=== PATIENT | female | born 1970 | race Caucasian/White ===

== ENCOUNTER 2016-06-23 13:40 | Inpatient (IN) | payer MEDICARE, MEDICAID ==
[~2016-06-23] VITALS: Ht 160 cm; Wt 197.5 kg
[~2016-06-23 13:40] MED LIST: AMOX1TAB10 PO; BACTDS PO; CEPH-443 PO; FAMO40TA52; FERR-55 PO; HYDR-906 PO; HYDR25TA6 PO; OMEP20CA16 PO; ONDA4TAB8 PO; OXYC-281; SERT-165 PO; SERT50TA6 PO; [UNRECOGNIZED DRUG - CODE] PO; [UNRECOGNIZED DRUG - CODE] PO
[2016-06-23] MEDS ORDERED: ACETAMINOPHEN 500 MG TAB PO STA (14:17)
[2016-06-23] MEDS ORDERED: IPRATROPIUM (NEB) 0.5 MG/2.5 ML AMP NEB STA (14:17)
[2016-06-23] MEDS ORDERED: ALBUTEROL 0.5% (NEB) 2.5 MG/0.5 ML AMP NEB STA (14:17)
[2016-06-23] MEDS ORDERED: LEVOFLOXACIN 500MG/D5W (PMX) 100 ML IV STA (14:17)
[2016-06-23] MEDS ORDERED: SOD CHLORIDE 0.9% 1,000 ML IV STA (14:17)
[2016-06-23 14:41] LABS: BASOPHILS % 0.1 % (0.0-2.0); EOSINOPHILS % 0.1 % (0.0-7.0); HEMATOCRIT 35.4 % (37.0-47.0); HEMOGLOBIN 11.2 g/dl (12.0-16.0); LYMPHOCYTES # 0.5 10^3/ul (0.8-2.9); LYMPHOCYTES % 3.1 % (15.0-51.0); MEAN CORPUSCULAR HEMOGLOBIN 21.7 pg (29.0-33.0); MEAN CORPUSCULAR HGB CONC 31.7 g/dl (32.0-37.0); MEAN CORPUSCULAR VOLUME 68.5 fl (82.0-101.0); MEAN PLATELET VOLUME 7.7 fl (7.4-10.4); MONOCYTE # 0.3 10^3/ul (0.3-0.9); MONOCYTES % 1.9 % (0.0-11.0); NEUTROPHIL # 15.7 10^3/ul (1.6-7.5); NEUTROPHILS % 94.8 % (39.0-77.0); PLATELET COUNT 269 10^3/UL (140-440); RED BLOOD COUNT 5.17 10^6/ul (4.20-5.40); RED CELL DISTRIBUTION WIDTH 19.6 % (11.5-14.5); UNCORRECTED WBC 16.5 10^3/ul (4.8-10.8); WHITE BLOOD COUNT 16.5 10^3/ul (4.8-10.8)
[2016-06-23 14:42] LABS: CONDITION 1; SUSPECT 1
[2016-06-23 14:43] LABS: LH ANALYZER COMMENTS 1
[2016-06-23] MEDS ORDERED: HYDROmorphONE 1 MG/ML SYG IV STA ×3 (14:59→20:54)
[2016-06-23] MEDS ORDERED: ONDANSETRON 4 MG INJ IV STA ×2 (14:59→16:23)
--- NOTE | 2016-06-23 15:01 | RADRPT ---
PROCEDURE: XR Chest. CLINICAL INDICATION: Shortness of breath TECHNIQUE: AP view of the chest was obtained. COMPARISON: None. FINDINGS: The cardiomediastinal silhouette is within normal limits. The lungs are unremarkable. No pleural e ffusion or pneumothorax is seen. Visualized osseous structures are unremarkable. IMPRESSION: No active cardiopulmonary disease identified. RPTAT: VV .David Rose MD, Date Time Electronically viewed and signed by .David Rose MD, on 06/23/2016 15:01 .O/
[2016-06-23 15:09] LABS: CREATININE 0.96 mg/dl (0.44-1.00)
[2016-06-23 15:10] LABS: CALCIUM 8.8 mg/dl (8.4-10.2)
[2016-06-23] MEDS ORDERED: HYDR-902 PO (16:00)
[2016-06-23] MEDS ORDERED: ALPR1TAB2 PO (16:00)
[2016-06-23] MEDS ORDERED: BENA40TA41 PO (16:01)
[2016-06-23] MEDS ORDERED: IBUP800T25 PO (16:01)
[2016-06-23] MEDS ORDERED: ALBU8.5H3 INH (16:02)
[2016-06-23] MEDS ORDERED: METF-382 PO (16:02)
--- NOTE | 2016-06-23 16:16 | ERA ---
ER Documentation Chief Complaint Date/Time DATE: 06/23/16 TIME: 16:12 Chief Complaint C/O LT LEG PAIN , FEVER , ST , SOB SINCE LAST NIGHT HPI This a 45-year-old female who complains of day 2 of fever, productive white sputum cough, sore throat, and states that she woke this morning with cellulitis to her right leg. She has had no nausea or vomiting no abdominal pain says she is a little short of breath with diffuse malaise and myalgias. She describes the pain in her leg is dull and constant ROS All systems reviewed and are negative except as per history of present illness. Medications Home Meds Reported Medications Albuterol Sulfate* (Proair HFA*) 8.5 Gm Hfa.aer.ad, 2 PUFF INH Q4H Y for WHEEZING AND SOB, #1 INHALER 06/23/16 Metformin Hcl* (Metformin Hcl*) 500 Mg Tablet, 500 MG PO WITH BREAKFAST, #30 TAB 06/23/16 Ibuprofen* (Ibuprofen*) 800 Mg Tab, 800 MG PO TID Y for PRN, TAB 06/23/16 Benazepril Hcl* (Benazepril Hcl*) 40 Mg Tablet, 40 MG PO DAILY, #30 TAB 06/23/16 Alprazolam* (Xanax*) 1 Mg Tab, 1 MG PO QHS Y for ANXIETY, TAB 06/23/16 Hydrocodone/Acetaminophen ([place] 10-325 Tablet) 1 Each Tablet, 1 EACH PO DAILY Y for PRN, TAB 06/23/16 Discontinued Reported Medications Oxycodone Hcl-Acetaminophen* (Percocet*) 1 Tab Tablet 06/13/12 Famotidine* (Famotidine*) 40 Mg Tablet 06/13/12 Hydrocodone Bit/Acetaminophen (Hydrocodone-[place] 7.5-750 Tab) 1 Tab Tablet, 1 TAB PO Q6-8HRS PRN 02/17/12 Ondansetron Hcl* (Zofran*) 4 Mg Tablet, 4 MG PO Q 4-6HRS PRN 02/17/12 Omeprazole* (Omeprazole*) 20 Mg Capsule.dr, 20 MG PO DAILY 02/17/12 Cimetidine (Cimetidine) 800 Mg Tablet, 800 MG PO BID 02/17/12 Ferrous Sulfate* (Ferrous Sulfate*) 325 Mg Tablet, 325 MG PO TID 02/17/12 Hydrochlorothiazide (Hydrochlorothiazide) 25 Mg Tablet, 25 MG PO AM 02/17/12 Sertraline Hcl* (Sertraline Hcl*) 100 Mg Tablet, 100 MG PO HS 02/17/12 Sertraline Hcl* (Sertraline Hcl*) 50 Mg Tablet, 50 MG PO HS 02/17/12 Discontinued Scripts Hydrocodone/Acetaminophen ([place] 5-325 Tablet) 1 Each Tablet, 1 TAB PO Q6H Y for PAIN, #20 TAB Prov:PARKER DAILEY Vinny 03/16/16 Sulfamethoxazole-Trimethoprim* (Bactrim* DS) 800-160 Mg Tab, 1 TAB PO BID for 7 Days, TAB Prov:PARKER DAILEY 03/16/16 Cephalexin* (Keflex*) 500 Mg Capsule, 500 MG PO QID for 7 Days, CAP Prov:PARKER DAILEY Vinny 03/16/16 Amox Tr/Potassium Clavulanate (Amox Tr-K Clv 875-125 Mg Tab) 1 Tab Tablet, 1 TAB PO BID for 7 Days, #20 TAB Prov:YOHANA ROSA MD 10/26/15 Allergies Allergies: Coded Allergies: morphine (Verified Allergy, Unknown, 06/23/16) PMhx/Soc History of Surgery: Yes (Lap [place] 03/2013, 1994) Anesthesia Reaction: No Hx Neurological Disorder: No Hx Respiratory Disorders: Yes (Sleep Apnea) Hx Alcohol Use: No Hx Substance Use: No Hx Tobacco Use: No Smoking Status: Never smoker FmHx Family History: No coronary disease Physical Exam Vitals Vital Signs Date Time Temp Pulse Resp B/P Pulse Ox O2 Delivery O2 Flow Rate FiO2 06/23/16 15:29 112 20 96 21 06/23/16 13:45 101.2 116 20 133/64 95 Physical Exam Const: Well-developed, well-nourished, morbidly obese Head: Atraumatic, normocephalic Eyes: Normal Conjunctiva, PERRLA, EOMI, normal sclera, no nystagmus ENT: Normal External Ears, Nose and Mouth, moist mucus membranes. Neck: Full range of motion. No meningismus, no lymphadenopathy. Resp: Slight increased work of breathing with diffuse rhonchi Cardio: Tachycardia, no murmurs, S1 S2 present Abd: Soft, non tender x 4, non distended. Normal bowel sounds, no guarding or rebound, no pulsitile abdominal masses or bruits Skin: The right lower leg has diffuse demarcated cellulitis/erythema Back: No midline or flank tenderness Ext: No cyanosis, or edema, FROM x 4, normal inspection, neurovascularly intact x 4 Neur: Awake and alert, STR 5/5 x 4, sensation intact x 4, no focal findings, cerebellum intact Psych: Normal Mood and Affect Result Diagram: 06/23/16 1415 06/23/16 1415 Results 24 hrs Laboratory Tests Test 06/23/16 14:15 Anion Gap 16 Basophils # 0.010^3/ul Basophils % 0.1% Blood Morphology Comment Blood Urea Nitrogen 15mg/dl Calcium Level 8.8mg/dl Carbon Dioxide Level 27mmol/L Chloride Level 99mmol/L Creatinine 0.96mg/dl Eosinophils # 0.010^3/ul Eosinophils % 0.1% Glucose Level 128mg/dl Hematocrit 35.4% Hemoglobin 11.2g/dl Lymphocytes # 0.510^3/ul Lymphocytes % 3.1% Mean Corpuscular Hemoglobin 21.7pg Mean Corpuscular Hemoglobin Concent 31.7g/dl Mean Corpuscular Volume 68.5fl Mean Platelet Volume 7.7fl Monocytes # 0.310^3/ul Monocytes % 1.9% Neutrophils # 15.710^3/ul Neutrophils % 94.8% Nucleated Red Blood Cells # 0.010^3/ul Nucleated Red Blood Cells % 0.0/100WBC Platelet Count 91262^3/UL Potassium Level 4.0mmol/L Red Blood Count 5.1710^6/ul Red Cell Distribution Width 19.6% Sodium Level 138mmol/L White Blood Count 16.510^3/ul Current Medications Medications (Trade) Dose Ordered Sig/Domonique Route PRN Reason Start Time Stop Time Status Last Admin Dose Admin Sodium Chloride 1,000 ml @ 1,000 mls/hr Q1H STAT IV 06/23/16 14:17 06/23/16 15:16 DC 06/23/16 14:56 Levofloxacin/ Dextrose (Levaquin 500mg/ D5W 100 ml (Pmx)) 100 ml @ 100 mls/hr ONCE STAT IV 06/23/16 14:17 06/23/16 15:16 DC 06/23/16 14:53 Acetaminophen (Tylenol Tab) 1,000 mg ONCE STAT PO 06/23/16 14:17 06/23/16 14:19 DC 06/23/16 14:53 Albuterol (Proventil 0.5% (Neb)) 7.5 mg ONCE STAT NEB 06/23/16 14:17 06/23/16 14:19 DC 06/23/16 14:17 Ipratropium [place] (Atrovent 0.02% (Neb)) 0.5 mg ONCE STAT NEB 06/23/16 14:17 06/23/16 14:19 DC 06/23/16 14:17 Hydromorphone HCl (Dilaudid) 1 mg ONCE STAT IV 06/23/16 14:59 06/23/16 15:01 DC 06/23/16 15:08 Ondansetron HCl (Zofran Inj) 4 mg ONCE STAT IV 06/23/16 14:59 06/23/16 15:01 DC 06/23/16 15:08 Procedures/MDM PROCEDURE: XR Chest. CLINICAL INDICATION: Shortness of breath TECHNIQUE: AP view of the chest was obtained. COMPARISON: None. FINDINGS: The cardiomediastinal silhouette is within normal limits. The lungs are unremarkable. No pleural effusion or pneumothorax is seen. Visualized osseous structures are unremarkable. IMPRESSION: No active cardiopulmonary disease identified. RPTAT: VV .David Rose MD, Date Time Electronically viewed and signed by .David Rose MD, MD on 06/23/2016 15:01 .O/ CC: CHANDLER ZACARIAS DO Patient has elevated white blood count of 16.5. She also has a fever here. Patient does not show pneumonia she likely has bronchitis but has cellulitis to the right leg. Due to her combination of different symptoms all of an infectious etiology will admit for antibiotic therapy specifically more for the cellulitis/fever Departure Diagnosis: Primary Impression: Cellulitis Qualified Code: L03.115 - Cellulitis of right lower extremity Additional Impression: Fever Qualified Code: R50.9 - Fever, unspecified fever cause Condition: Stable CHANDLER ZACARIAS DO Jun 23, 2016 16:16
[2016-06-23] MEDS ORDERED: SOD CHLORIDE 0.9% 1,000 ML IV SCH ×2 (17:51→18:30)
[2016-06-23] MEDS ORDERED: ACETAMINOPHEN 325 MG TAB PO PRN (18:00)
[2016-06-23] MEDS ORDERED: ONDANSETRON 4 MG INJ IV PRN (18:00)
[2016-06-23] MEDS ORDERED: ALBUTEROL/IPRATROPIUM (NEB) 3 ML AMP HHN PRN (18:30)
[2016-06-23] MEDS ORDERED: VANCOMYCIN IV PER PHARMACY XX SCH (18:30)
[2016-06-23] MEDS ORDERED: HYDROCODONE/APAP (7.5/325) TAB PO PRN (18:30)
--- NOTE | 2016-06-23 18:43 | RADRPT ---
PROCEDURE: US Lower extremity Venous. CLINICAL INDICATION: Pain and swelling TECHNIQUE: Multiple sonographic images of the right lower extremity deep venous system was obtaine d utilizing grayscale, color-flow, compressive sonography and doppler imaging with augmentation. Th e images were reviewed on a PACS workstation. COMPARISON: None. FINDINGS: There is normal compressibility and flow within the right common femoral, deep femoral, superficial femoral and popliteal veins. Normal respiratory variation and augmentation is seen. There is normal color flow and compressibility of right posterior tibial and peroneal veins IMPRESSION: No sonographic evidence for right lower extremity deep venous thrombosis. RPTAT: HH .Alberto Velázquez MD, MD Date Time Electronically viewed and signed by .Alberto Velázquez MD, on 06/23/2016 18:43 .W/
[2016-06-23] MEDS ORDERED: ALPRAZOLAM 1 MG TAB PO PRN (19:00)
[2016-06-23] MEDS ORDERED: GLUCAGON 1 MG INJ IM PRN (19:30)
[2016-06-23] MEDS ORDERED: DEXTROSE 50% 50 ML SYRINGE IV PRN ×2 (19:30)
[2016-06-23] MEDS ORDERED: GLUCOSE GEL 15 GRAM TUBE BUCCAL PRN (19:30)
[2016-06-23] MEDS ORDERED: GLUCOSE GEL 15 GRAM TUBE PO PRN ×2 (19:30)
[2016-06-23 19:48] VITALS: Ht 160 cm; Wt 197.5 kg
[2016-06-23] MEDS ORDERED: VANCOMYCIN 2 GM in SOD CHLORIDE 0.9% 500 ML IVPB SCH (20:00)
--- NOTE | 2016-06-23 20:07 | HP ---
DATE OF ADMISSION: 06/23/2016 PRESENTING COMPLAINT: Fever and lower extremity pain. HISTORY OF PRESENTING COMPLAINT: Ms. Cheney is a morbidly obese 45-year-old female who pre sents to our emergency room today complaining of lower extremity pain, difficulty breathing, coughin g, fever associated with wheezing and productive of greenish sputum as well as shortness of breath. The patient reports she has chronic history of bilateral lower extremity cellulitis, but this episo de started about a week ago. Right knee is associated with a lot of pain in that lower extremity an d imaging has been obtained to rule out a DVT and that has come back negative. For her coughing, a chest x-ray does not show any pneumonia; however, her symptoms are concerning for a systemic inflamm atory response and so she is being admitted for further workup and management. The patient endorses nausea but no vomiting. She also denies abdominal pain. She does complain of muscle aches and a f eeling of lethargy. PAST MEDICAL HISTORY: Positive for the followin. Morbid obesity. 2. Sleep apnea. 3. Gastritis. 4. Chronic pain. 5. Depression. 6. Chronic anemia. 7. Previous lower extremity cellulitis. 8. The patient is prediabetic. PAST SURGICAL HISTORY: Positive for laparoscopic cholecystectomy and a . ALLERGIES: THE PATIENT IS ALLERGIC TO MORPHINE. FAMILY HISTORY: Positive for brain tumor and high blood pressure. SOCIAL HISTORY: The patient denies tobacco, alcohol or illicit drug use. HOME MEDICATIONS: The patient takes: 1. Albuterol inhaler every 4 p.r.n. 2. Xanax 1 mg p.o. at bedtime p.r.n. anxiety. 3. Benazepril 40 mg p.o. daily. 4. [place] 10/325 one tablet daily p.r.n. 5. Ibuprofen 800 mg p.o. t.i.d. p.r.n. 6. Metformin 500 mg with breakfast. PHYSICAL EXAMINATION: VITAL SIGNS: Temperature 101.2, pulse 112, respirations 20, blood pressure 133/64, saturations 96% on room air. GENERAL: The patient was very anxious, morbidly obese, alert and oriented. HEENT: Head was normocephalic. Pupils were equal and reactive. Posterior pharynx was slightly fortino thematous without exudate. NECK: Supple without JVD. CHEST: With coarse breath sounds with diffuse end expiratory wheezes. CARDIOVASCULAR: Tachycardic without murmurs. ABDOMEN: Morbidly obese, soft, nontender with normoactive bowel sounds. EXTREMITIES: Right lower extremity was cellulitic from the top of the right knee I believe to all t he way to the foot and the right leg was slightly more swollen than the left. SKIN: Findings as above. NEUROLOGIC: She had no focal deficits. LABORATORY VALUES: Leukocytosis was noted at 16,000 and a hypochromic, microcytic anemia, a neutrop hilia of 94%, but no bandemia, platelets are normal. Chemistry: Basic metabolic profile was unrema rkable. IMAGING: Lower extremity venous study was negative for DVT, and a chest x-ray did not show any acti ve cardiopulmonary disease, acute. IMPRESSION: A 45-year-old morbidly obese female with: 1. Sepsis likely secondary to #2. 2. Acute upper respiratory infection, rule out atypical pneumonia. 3. Right lower extremity cellulitis. 4. Microcytic hypochromic anemia. 5. Morbid obesity 6. Prediabetes. 7. Chronic depression and anxiety. 8. Chronic pain. 9. History of gastritis. 10. Chronic sleep apnea. PLAN OF CARE: 1. Admit the patient to medical surgical floor for further management as well as antibiotic therapy . Patient was put on scheduled bronchodilator therapy as well as p.r.n. We will treat fever with a ntipyretics, provide pain medication and antiemetics as needed. 2. She will be continued on her home regimen and I will also put her on a calorie controlled diet w ith sliding scale on a mild level. 3. Prophylaxis will be with Lovenox and Pepcid. 4. Further interventions will depend on our clinical findings and how the patient responds to the a adin measures. Overall admission time has been about 45 minutes. For further information and clarification, please review the patient's chart and my orders. Dictated By: LEVI NG MD, BA/JUNAID Conf#: [id number] DID#: [id number]
[2016-06-23 20:37] VITALS: BP 120/65; RESP 18
[2016-06-23] MEDS: DOCUSATE SODIUM 100 MG CAP PO SCH (21:00)
[2016-06-23] MEDS: INSULIN ASPART [NOVOLOG] 3 ML PEN SC SCH (21:00)
[2016-06-23] MEDS: ALBUTEROL/IPRATROPIUM (NEB) 3 ML AMP HHN SCH (21:18)
[2016-06-23] MEDS: ONDANSETRON 4 MG INJ IV PRN (21:36)
[2016-06-23] MEDS: VANCOMYCIN 1.5 GM in SOD CHLORIDE 0.9% 250 ML IVPB SCH (21:38)
[2016-06-23] MEDS: FAMOTIDINE 20 MG TAB PO SCH (21:43)
[2016-06-23] MEDS: KETOROLAC 30 MG INJ IV PRN (21:53)
[2016-06-24] MEDS: ALBUTEROL/IPRATROPIUM (NEB) 3 ML AMP HHN SCH ×6 (01:21→20:46)
[2016-06-24] MEDS: VANCOMYCIN 1.5 GM in SOD CHLORIDE 0.9% 250 ML IVPB SCH (01:51)
[2016-06-24 02:28] LABS: ADD UMIC YES; URINE BILIRUBIN (Dip) NEGATIVE (NEGATIVE); URINE BLOOD (Dip) 3+ (NEGATIVE); URINE COLOR YELLOW (YELLOW); URINE GLUCOSE (Dip) NEGATIVE (NEGATIVE); URINE KETONES (Dip) NEGATIVE (NEGATIVE); URINE LEUKOCYTE ESTERASE (Dip) NEGATIVE (NEGATIVE); URINE NITRITE (Dip) NEGATIVE (NEGATIVE); URINE TOTAL PROTEIN (Dip) 1+ (NEGATIVE); URINE UROBILINOGEN (Dip) 1.0 E.U./dL (0.1-1.0)
[2016-06-24 02:36] LABS: SQUAMOUS EPITHELIAL CELL,UR MANY
[2016-06-24 02:38] LABS: BACTERIA,URINE OCCASIONAL
[2016-06-24] MEDS: ACETAMINOPHEN 325 MG TAB PO PRN (04:55)
[2016-06-24 05:59] LABS: BASOPHILS % 0.1 % (0.0-2.0); HEMATOCRIT 30.5 % (37.0-47.0); HEMOGLOBIN 9.9 g/dl (12.0-16.0); LYMPHOCYTES # 0.8 10^3/ul (0.8-2.9); LYMPHOCYTES % 6.4 % (15.0-51.0); MEAN CORPUSCULAR HEMOGLOBIN 22.4 pg (29.0-33.0); MEAN CORPUSCULAR HGB CONC 32.4 g/dl (32.0-37.0); MEAN CORPUSCULAR VOLUME 69.2 fl (82.0-101.0); MEAN PLATELET VOLUME 7.9 fl (7.4-10.4); MONOCYTE # 0.5 10^3/ul (0.3-0.9); MONOCYTES % 4.2 % (0.0-11.0); NEUTROPHIL # 11.2 10^3/ul (1.6-7.5); NEUTROPHILS % 89.3 % (39.0-77.0); PLATELET COUNT 237 10^3/UL (140-440); RED BLOOD COUNT 4.41 10^6/ul (4.20-5.40); RED CELL DISTRIBUTION WIDTH 19.4 % (11.5-14.5); UNCORRECTED WBC 12.5 10^3/ul (4.8-10.8); WHITE BLOOD COUNT 12.5 10^3/ul (4.8-10.8)
[2016-06-24 06:01] VITALS: BP 125/60; RESP 20
[2016-06-24 06:09] LABS: CONDITION 1; LH ANALYZER COMMENTS 1
[2016-06-24 06:41] LABS: ALBUMIN 3.4 g/dl (3.3-4.9)
[2016-06-24 06:42] LABS: POTASSIUM 4.3 mmol/L (3.5-5.1)
[2016-06-24 06:44] LABS: BILIRUBIN,INDIRECT 0.3 mg/dl (0-1.1); BILIRUBIN,TOTAL 0.3 mg/dl (0.2-1.3); CREATININE 0.85 mg/dl (0.44-1.00)
[2016-06-24 06:45] LABS: CALCIUM 8.2 mg/dl (8.4-10.2); TOTAL PROTEIN 7.5 g/dl (6.1-8.1)
[2016-06-24 06:46] LABS: CHOL/HDL RATIO 2.9 RATIO; MAGNESIUM 1.7 mg/dl (1.7-2.5)
[2016-06-24 06:58] LABS: THYROID STIMULATING HORMONE 2.25 MIU/L (0.465-4.680)
[2016-06-24 07:30] VITALS: BP 124/57; RESP 21
[2016-06-24 07:32] LABS: IRON 14 ug/dl (35-150)
[2016-06-24 07:33] LABS: FOLATE 5.8 ng/ml (2.8-20.0)
[2016-06-24 07:42] LABS: TOTAL IRON BINDING CAPACITY 344 ug/dl (241-421)
[2016-06-24] MEDS: metFORMIN 500 MG TAB PO SCH (08:10)
[2016-06-24] MEDS: INSULIN ASPART [NOVOLOG] 3 ML PEN SC SCH ×4 (08:10→21:00)
[2016-06-24] MEDS: ENOXAPARIN 40 MG/0.4 ML SYG SC SCH (08:14)
[2016-06-24] MEDS: DOCUSATE SODIUM 100 MG CAP PO SCH ×2 (09:39→21:40)
[2016-06-24] MEDS: ASPIRIN (EC) 81 MG TAB PO SCH (09:40)
[2016-06-24] MEDS: BENAZEPRIL 40 MG TAB PO SCH (09:40)
[2016-06-24] MEDS: FAMOTIDINE 20 MG TAB PO SCH ×2 (09:40→21:40)
[2016-06-24] MEDS: KETOROLAC 30 MG INJ IV PRN (09:47)
[2016-06-24] MEDS ORDERED: HYDROmorphONE 1 MG/ML SYG IV PRN (10:30)
[2016-06-24] MEDS: HYDROmorphONE 1 MG/ML SYG IV PRN ×3 (10:33→22:32)
[2016-06-24] MEDS: PREGABALIN 75 MG CAP PO SCH ×2 (10:33→21:40)
--- NOTE | 2016-06-24 11:08 | PN ---
Date/Time of Note Date/Time of Note DATE: 06/24/16 TIME: 11:03 Assessment/Plan VTE Prophylaxis VTE Prophylaxis Intervention: LMWH Lines/Catheters IV Catheter Type (from Nrsg): Peripheral IV Assessment/Plan Assessment/Plan A 45-year-old morbidly obese female with: 1. Sepsis likely secondary to #2. improved; still had low grade fever this am ; cont abx 2. Acute upper respiratory infection, rule out atypical pneumonia. improved ; cont abx 3. Right lower extremity cellulitis. abx 4. Microcytic hypochromic anemia. 2/2 iron deficiency; will replace with iV iron 5. 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 Prediabetes. continue SSI , metformin, 7. Chronic depression and anxiety. stable on home meds 8. Chronic pain. patient has a med seeking behavior, will titrate opiods with caution; patient is also on nsaids, continues on her home regimen as well 9. History of gastritis. 10. Chronic sleep apnea. 11. LE neuropathic pain: add lyrica, pain is out of proportion for cellulitis Prophylaxis: lovenox/ pepcid Further evaluation and treatment will be based on clinical course Full discussion with care team done. All questions Answered Please also see orders. Total time spent on this evaluation >35mins Subjective 24 Hr Interval Summary Free Text/Dictation c/o of very severe pain in R leg. Exam/Review of Systems Vital Signs Vitals Vital Signs Date Time Temp Pulse Resp B/P Pulse Ox O2 Delivery O2 Flow Rate FiO2 06/24/16 09:10 88 20 96 21 06/24/16 07:30 98.5 124/57 06/24/16 05:22 2.0 Intake and Output 06/23/16 06/23/16 06/24/16 14:59 22:59 06:59 Intake Total 1080 ml Balance 1080 ml Exam Constitutional: alert, distress, obese (morbidly), oriented Psych: anxiety Head: atraumatic, normocephalic Eyes: PERRL ENMT: mucosa pink and moist Neck: supple Respiratory: clear to auscultation Cardiovascular: regular rate and rhythm, No murmurs/extra sounds Gastrointestinal: bowel sounds, non-tender, soft Musculoskeletal: No nl extremities to inspection Neurological: other (patient jumps when you touch her leg. The degree of pain ios not commensurate with cellulitis identified) Skin: other (cellulitis RLE), rash or lesions (multiple psoriatic lesions) Results Result Diagram: 06/24/16 0515 06/24/16 0515 Results 24 hrs Laboratory Tests Test 06/23/16 14:15 06/23/16 18:20 06/23/16 21:42 06/24/16 05:15 Anion Gap 16 13 Basophils # 0.0 0.0 Basophils % 0.1 0.1 Blood Morphology Comment Blood Urea Nitrogen 15 14 Calcium Level 8.8 8.2 L Carbon Dioxide Level 27 29 Chloride Level 99 100 Creatinine 0.96 0.85 Eosinophils # 0.0 0.0 Eosinophils % 0.1 0.0 Glucose Level 128 116 Hematocrit 35.4 L 30.5 L Hemoglobin 11.2 L 9.9 L Lymphocytes # 0.5 L 0.8 Lymphocytes % 3.1 L 6.4 L Mean Corpuscular Hemoglobin 21.7 L 22.4 L Mean Corpuscular Hemoglobin Concent 31.7 L 32.4 Mean Corpuscular Volume 68.5 L 69.2 L Mean Platelet Volume 7.7 7.9 Monocytes # 0.3 0.5 Monocytes % 1.9 4.2 Neutrophils # 15.7 H 11.2 H Neutrophils % 94.8 H 89.3 H Nucleated Red Blood Cells # 0.0 0.0 Nucleated Red Blood Cells % 0.0 0.0 Platelet Count 269 237 Potassium Level 4.0 4.3 Red Blood Count 5.17 4.41 Red Cell Distribution Width 19.6 H 19.4 H Sodium Level 138 138 White Blood Count 16.5 #H 12.5 #H Urine Bacteria OCCASIONAL Urine Bilirubin NEGATIVE Urine Clarity CLEAR Urine Color YELLOW Urine Glucose NEGATIVE Urine Hemoglobin 3+ H Urine Ketones NEGATIVE Urine Leukocyte Esterase NEGATIVE Urine Microscopic RBC 10-25 Urine Microscopic WBC 0-2 Urine Nitrite NEGATIVE Urine Specific [place] >=1.030 H Urine Squamous Epithelial Cells MANY Urine Total Protein 1+ H Urine Urobilinogen 1.0 E.U./dL Urine Yeast OCCASIONAL Urine pH 6.0 Bedside Glucose 150 Alanine Aminotransferase (ALT/SGPT) 24 Albumin 3.4 Alkaline Phosphatase 91 Aspartate Amino Transf (AST/SGOT) 29 Cholesterol Level 92 L Cholesterol/HDL Ratio 2.9 Direct Bilirubin 0.00 Folate 5.8 HDL Cholesterol 31 L Hemoglobin A1c 6.1 H Indirect Bilirubin 0.3 Iron Level 14 L LDL Cholesterol, Calculated 48 Magnesium Level 1.7 Percent Iron Saturation 4 L Thyroid Stimulating Hormone (TSH) 2.250 Total Bilirubin 0.3 Total Iron Binding Capacity 344 Total Protein 7.5 Triglycerides Level 63 Test 06/24/16 08:08 Bedside Glucose 112 Medications Medications Current Medications Levofloxacin/ Dextrose (Levaquin 750 Mg/ D5W 150 ml (Pmx)) 150 ml @ 100 mls/hr Q24H IVPB ; Start 06/24/16 at 14:00 Aspirin (Halfprin) 81 mg DAILY PO Last administered on 06/24/16 09:40; Admin Dose 81 MG; Start 06/24/16 at 09:00 Enoxaparin Sodium (Lovenox) 40 mg DAILY SC Last administered on 06/24/16 08:14 ; Admin Dose 40 MG; Start 06/24/16 at 09:00 Famotidine (Pepcid) 20 mg BID PO Last administered on 06/24/16 09:40; Admin Dose 20 MG; Start 06/23/16 at 21:00 Docusate Sodium (Colace) 100 mg BID PO Last administered on 06/24/16 09:39; Admin Dose 100 MG; Start 06/23/16 at 21:00 Ondansetron HCl (Zofran Inj) 4 mg Q6H PRN IV NAUSEA AND/OR VOMITING Last administered on 06/23/16 21:36; Admin Dose 4 MG; Start 06/23/16 at 18:30 Acetaminophen/ Hydrocodone Bitart ([place] (7.5-325)) 1 tab Q6H PRN PO pain Last administered on 06/24/16 01:58; Admin Dose 1 TAB; Start 06/23/16 at 18:30 Ketorolac Tromethamine (Toradol) 30 mg Q6H PRN IV PAIN Last administered on 09:47; Admin Dose 30 MG; Start 06/23/16 at 18:30; Stop 06/25/16 at 18:29 Acetaminophen (Tylenol Tab) 650 mg Q6H PRN PO PAIN AND OR ELEVATED TEMP Last administered on 06/24/16 04:55; Admin Dose 650 MG; Start 06/23/16 at 18:30 Alprazolam (Xanax) 1 mg QHS PRN PO ANXIETY; Start 06/23/16 at 19:00 Benazepril HCl (Lotensin) 40 mg DAILY PO Last administered on 06/24/16 09:40; Admin Dose 40 MG; Start 06/24/16 at 09:00 Miscellaneous Information 1 ea NOTE XX ; Start 06/23/16 at 19:30 Glucose (Glutose) 15 gm Q15M PRN PO DECREASED GLUCOSE; Start 06/23/16 at 19:30 Glucose (Glutose) 22.5 gm Q15M PRN PO DECREASED GLUCOSE; Start 06/23/16 at 19: 30 Dextrose (D50w Syringe) 25 ml Q15M PRN IV DECREASED GLUCOSE; Start 06/23/16 at 19:30 Dextrose (D50w Syringe) 50 ml Q15M PRN IV DECREASED GLUCOSE; Start 06/23/16 at 19:30 Glucagon (Glucagen) 1 mg Q15M PRN IM DECREASED GLUCOSE; Start 06/23/16 at 19:30 Glucose 15 gm 15 gm Q15M PRN BUCCAL DECREASED GLUCOSE; Start 06/23/16 at 19:30 Vancomycin HCl/ Sodium Chloride (Vancocin/NS) 250 ml @ 83.333 mls/ hr Q12H IVPB ; Start 06/24/16 at 14:00 Pregabalin 75 mg 75 mg BID PO Last administered on 06/24/16 10:33; Admin Dose 75 MG; Start 06/24/16 at 10:30 Ferric Sodium Gluconate Complex/ Sodium Chloride (Ferrlecit/NS) 110 ml @ 100 mls/hr Q24H IVPB ; Start 06/24/16 at 12:00; Stop 06/26/16 at 13:05 Senna (Senokot) 2 tab QHS PO ; Start 06/24/16 at 21:00 Hydromorphone HCl (Dilaudid) 1 mg Q6H PRN IV PAIN Last administered on 10:33; Admin Dose 1 MG; Start 06/24/16 at 10:30 LEVI NG Jun 24, 2016 11:08
[2016-06-24] MEDS: SOD FERRIC GLUC COMPLX 125 MG in SOD CHLORIDE 0.9% 100 ML IVPB SCH (13:11)
[2016-06-24] MEDS ORDERED: VANCOMYCIN 1.25 GM in SOD CHLORIDE 0.9% 250 ML IVPB SCH (14:00)
[2016-06-24] MEDS: LEVOFLOXACIN 750MG/D5W (PMX) 150 ML IVPB SCH (15:21)
[2016-06-24 19:25] VITALS: BP 114/58; RESP 20
[2016-06-24] MEDS: VANCOMYCIN 1.25 GM in SOD CHLORIDE 0.9% 250 ML IVPB SCH (21:40)
[2016-06-24] MEDS: SENNA TAB PO SCH (21:40)
[2016-06-25] MEDS: ONDANSETRON 4 MG INJ IV PRN ×4 (00:50→23:30)
[2016-06-25] MEDS: HYDROmorphONE 1 MG/ML SYG IV PRN ×3 (04:43→18:43)
[2016-06-25 06:01] LABS: BASOPHILS % 0.1 % (0.0-2.0); EOSINOPHILS % 0.1 % (0.0-7.0); HEMATOCRIT 30.5 % (37.0-47.0); HEMOGLOBIN 9.6 g/dl (12.0-16.0); LYMPHOCYTES # 1.2 10^3/ul (0.8-2.9); LYMPHOCYTES % 14.6 % (15.0-51.0); MEAN CORPUSCULAR HEMOGLOBIN 22.2 pg (29.0-33.0); MEAN CORPUSCULAR HGB CONC 31.3 g/dl (32.0-37.0); MEAN CORPUSCULAR VOLUME 70.8 fl (82.0-101.0); MEAN PLATELET VOLUME 8.1 fl (7.4-10.4); MONOCYTE # 0.5 10^3/ul (0.3-0.9); MONOCYTES % 5.8 % (0.0-11.0); NEUTROPHIL # 6.4 10^3/ul (1.6-7.5); NEUTROPHILS % 79.4 % (39.0-77.0); PLATELET COUNT 244 10^3/UL (140-440); RED BLOOD COUNT 4.31 10^6/ul (4.20-5.40); RED CELL DISTRIBUTION WIDTH 19.5 % (11.5-14.5); UNCORRECTED WBC 8.1 10^3/ul (4.8-10.8); WHITE BLOOD COUNT 8.1 10^3/ul (4.8-10.8)
[2016-06-25 06:20] LABS: CONDITION 1; LH ANALYZER COMMENTS 1
[2016-06-25 06:39] LABS: POTASSIUM 4.5 mmol/L (3.5-5.1)
[2016-06-25] MEDS: VANCOMYCIN 1.25 GM in SOD CHLORIDE 0.9% 250 ML IVPB SCH ×3 (06:40→21:55)
[2016-06-25 06:41] LABS: CREATININE 0.91 mg/dl (0.44-1.00)
[2016-06-25 06:42] LABS: CALCIUM 8.4 mg/dl (8.4-10.2)
[2016-06-25] MEDS: KETOROLAC 30 MG INJ IV PRN (06:44)
[2016-06-25 07:45] VITALS: BP 111/56; RESP 22
[2016-06-25] MEDS: INSULIN ASPART [NOVOLOG] 3 ML PEN SC SCH ×4 (07:47→21:00)
[2016-06-25] MEDS: PREGABALIN 75 MG CAP PO SCH ×2 (08:41→21:53)
[2016-06-25] MEDS: FAMOTIDINE 20 MG TAB PO SCH ×2 (08:41→21:00)
[2016-06-25] MEDS: ASPIRIN (EC) 81 MG TAB PO SCH (08:42)
[2016-06-25] MEDS: DOCUSATE SODIUM 100 MG CAP PO SCH ×2 (08:42→21:00)
[2016-06-25] MEDS: metFORMIN 500 MG TAB PO SCH (08:42)
[2016-06-25] MEDS: ENOXAPARIN 40 MG/0.4 ML SYG SC SCH (08:43)
[2016-06-25] MEDS: BENAZEPRIL 40 MG TAB PO SCH (08:44)
[2016-06-25] MEDS ORDERED: FLUCONAZOLE 200 MG/NS (PMX) 100 ML IVPB ONE (10:30)
[2016-06-25] MEDS: SOD FERRIC GLUC COMPLX 125 MG in SOD CHLORIDE 0.9% 100 ML IVPB SCH (12:56)
[2016-06-25] MEDS: LEVOFLOXACIN 750MG/D5W (PMX) 150 ML IVPB SCH (14:27)
[2016-06-25 19:29] VITALS: BP 119/56; RESP 14
[2016-06-25] MEDS: SENNA TAB PO SCH (21:00)
[2016-06-26] MEDS: HYDROmorphONE 1 MG/ML SYG IV PRN ×3 (00:34→18:09)
[2016-06-26 06:41] LABS: BASOPHILS % 0.1 % (0.0-2.0); EOSINOPHILS # 0.1 10^3/ul (0.0-0.5); HEMATOCRIT 29.3 % (37.0-47.0); HEMOGLOBIN 9.2 g/dl (12.0-16.0); LYMPHOCYTES # 1.5 10^3/ul (0.8-2.9); LYMPHOCYTES % 23.5 % (15.0-51.0); MEAN CORPUSCULAR HGB CONC 31.4 g/dl (32.0-37.0); MEAN PLATELET VOLUME 7.9 fl (7.4-10.4); MONOCYTE # 0.4 10^3/ul (0.3-0.9); MONOCYTES % 7.2 % (0.0-11.0); NEUTROPHIL # 4.2 10^3/ul (1.6-7.5); NEUTROPHILS % 68.2 % (39.0-77.0); PLATELET COUNT 259 10^3/UL (140-440); RED BLOOD COUNT 4.19 10^6/ul (4.20-5.40); RED CELL DISTRIBUTION WIDTH 19.7 % (11.5-14.5); UNCORRECTED WBC 6.2 10^3/ul (4.8-10.8); WHITE BLOOD COUNT 6.2 10^3/ul (4.8-10.8)
[2016-06-26 06:43] LABS: POTASSIUM 4.6 mmol/L (3.5-5.1)
[2016-06-26 06:45] LABS: CREATININE 0.86 mg/dl (0.44-1.00)
[2016-06-26 06:46] LABS: CALCIUM 8.6 mg/dl (8.4-10.2)
[2016-06-26] MEDS: ONDANSETRON 4 MG INJ IV PRN ×2 (06:46→18:09)
[2016-06-26] MEDS: VANCOMYCIN 1.25 GM in SOD CHLORIDE 0.9% 250 ML IVPB SCH ×3 (06:46→22:35)
[2016-06-26 07:17] LABS: CONDITION 1; LH ANALYZER COMMENTS 1
[2016-06-26 07:39] VITALS: BP 121/70; RESP 22
[2016-06-26] MEDS: INSULIN ASPART [NOVOLOG] 3 ML PEN SC SCH ×4 (08:15→21:00)
[2016-06-26] MEDS: PREGABALIN 75 MG CAP PO SCH ×2 (08:39→21:07)
[2016-06-26] MEDS: FLUCONAZOLE 200 MG TAB PO SCH (08:39)
[2016-06-26] MEDS: metFORMIN 500 MG TAB PO SCH (08:39)
[2016-06-26] MEDS: ASPIRIN (EC) 81 MG TAB PO SCH (08:39)
[2016-06-26] MEDS: DOCUSATE SODIUM 100 MG CAP PO SCH ×2 (08:39→21:00)
[2016-06-26] MEDS: BENAZEPRIL 40 MG TAB PO SCH (08:39)
[2016-06-26] MEDS: FAMOTIDINE 20 MG TAB PO SCH ×2 (08:39→21:07)
[2016-06-26] MEDS: ENOXAPARIN 40 MG/0.4 ML SYG SC SCH (09:11)
--- NOTE | 2016-06-26 10:27 | PN ---
Date/Time of Note Date/Time of Note DATE: 06/26/16 TIME: 10:17 Assessment/Plan VTE Prophylaxis VTE Prophylaxis Intervention: LMWH Lines/Catheters IV Catheter Type (from Nrs): Saline Lock Urinary Cath still in place: No Assessment/Plan Assessment/Plan A 45-year-old morbidly obese female with: 1. Sepsis likely secondary to #2. improved; now 24hr fever free ; cont abx 2. Acute upper respiratory infection, rule out atypical pneumonia. improved ; cont abx 3. Right lower extremity cellulitis. Vancomycin 4. Microcytic hypochromic anemia. 2/2 iron deficiency; will replace with iV iron 5. Strep Pyogenes bacteremia Repeat blood cultures still pending; will tailor abx therapy and continue vanco for cellulitis 6. Prediabetes. continue SSI , metformin, 7. Chronic depression and anxiety. stable on home meds 8. Chronic pain. patient has a med seeking behavior, will begin to wean opiods; patient is also on nsaids, continues on her home regimen as well 9. History of gastritis. 10. Chronic sleep apnea. 11. LE neuropathic pain: Started on lyrica, pain is out of proportion for cellulitis 12. 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 Further evaluation and treatment will be based on clinical course Full discussion with care team done. All questions Answered Please also see orders. Subjective 24 Hr Interval Summary Free Text/Dictation continues to improve still has extremity pain, N/V slightly better Exam/Review of Systems Vital Signs Vitals Vital Signs Date Time Temp Pulse Resp B/P Pulse Ox O2 Delivery O2 Flow Rate FiO2 06/26/16 08:00 96 Nasal Cannula 2.0 06/26/16 07:39 98.0 63 22 121/70 06/24/16 16:33 28 Intake and Output 06/25/16 06/25/16 06/26/16 14:59 22:59 06:59 Intake Total 250 ml 2170 ml 1030 ml Balance 250 ml 2170 ml 1030 ml Exam Constitutional: alert, distress, obese (morbidly), oriented Psych: anxiety Head: atraumatic, normocephalic Eyes: PERRL ENMT: mucosa pink and moist Neck: supple Respiratory: clear to auscultation Cardiovascular: regular rate and rhythm, No murmurs/extra sounds Gastrointestinal: bowel sounds, non-tender, soft Musculoskeletal: No nl extremities to inspection Neurological: other (patient jumps when you touch her leg. The degree of pain is not commensurate with cellulitis identified): pain is improved Skin: other (cellulitis RLE improving), rash or lesions (multiple psoriatic lesions) Results Result Diagram: 06/26/16 0500 06/26/16 0500 Results 24 hrs Laboratory Tests Test 06/25/16 12:55 06/25/16 17:36 06/25/16 21:52 06/26/16 05:00 Bedside Glucose 112 102 105 Anion Gap 16 Basophils # 0.0 Basophils % 0.1 Blood Morphology Comment Blood Urea Nitrogen 18 Calcium Level 8.6 Carbon Dioxide Level 28 Chloride Level 100 Creatinine 0.86 Eosinophils # 0.1 Eosinophils % 1.0 Glucose Level 96 Hematocrit 29.3 L Hemoglobin 9.2 L Lymphocytes # 1.5 Lymphocytes % 23.5 Mean Corpuscular Hemoglobin 22.0 L Mean Corpuscular Hemoglobin Concent 31.4 L Mean Corpuscular Volume 70.0 L Mean Platelet Volume 7.9 Monocytes # 0.4 Monocytes % 7.2 Neutrophils # 4.2 Neutrophils % 68.2 Nucleated Red Blood Cells # 0.0 Nucleated Red Blood Cells % 0.0 Platelet Count 259 Potassium Level 4.6 Red Blood Count 4.19 L Red Cell Distribution Width 19.7 H Sodium Level 139 White Blood Count 6.2 # Test 06/26/16 07:52 Bedside Glucose 101 Medications Medications Current Medications Levofloxacin/ Dextrose (Levaquin 750 Mg/ D5W 150 ml (Pmx)) 150 ml @ 100 mls/hr Q24H IVPB Last administered on 06/25/16 14:27; Admin Dose 100 MLS/HR; Start at 14:00 Aspirin (Halfprin) 81 mg DAILY PO Last administered on 06/26/16 08:39; Admin Dose 81 MG; Start 06/24/16 at 09:00 Enoxaparin Sodium (Lovenox) 40 mg DAILY SC Last administered on 06/26/16 09:11 ; Admin Dose 40 MG; Start 06/24/16 at 09:00 Famotidine (Pepcid) 20 mg BID PO Last administered on 06/26/16 08:39; Admin Dose 20 MG; Start 06/23/16 at 21:00 Docusate Sodium (Colace) 100 mg BID PO Last administered on 06/26/16 08:39; Admin Dose 100 MG; Start 06/23/16 at 21:00 Ondansetron HCl (Zofran Inj) 4 mg Q6H PRN IV NAUSEA AND/OR VOMITING Last administered on 06/26/16 06:46; Admin Dose 4 MG; Start 06/23/16 at 18:30 Acetaminophen/ Hydrocodone Bitart ([place] (7.5-325)) 1 tab Q6H PRN PO pain Last administered on 06/24/16 01:58; Admin Dose 1 TAB; Start 06/23/16 at 18:30 Acetaminophen (Tylenol Tab) 650 mg Q6H PRN PO PAIN AND OR ELEVATED TEMP Last administered on 06/24/16 04:55; Admin Dose 650 MG; Start 06/23/16 at 18:30 Alprazolam (Xanax) 1 mg QHS PRN PO ANXIETY; Start 06/23/16 at 19:00 Benazepril HCl (Lotensin) 40 mg DAILY PO Last administered on 06/26/16 08:39; Admin Dose 40 MG; Start 06/24/16 at 09:00 Miscellaneous Information 1 ea NOTE XX ; Start 06/23/16 at 19:30 Glucose (Glutose) 15 gm Q15M PRN PO DECREASED GLUCOSE; Start 06/23/16 at 19:30 Glucose (Glutose) 22.5 gm Q15M PRN PO DECREASED GLUCOSE; Start 06/23/16 at 19: 30 Dextrose (D50w Syringe) 25 ml Q15M PRN IV DECREASED GLUCOSE; Start 06/23/16 at 19:30 Dextrose (D50w Syringe) 50 ml Q15M PRN IV DECREASED GLUCOSE; Start 06/23/16 at 19:30 Glucagon (Glucagen) 1 mg Q15M PRN IM DECREASED GLUCOSE; Start 06/23/16 at 19:30 Glucose (Glutose) 15 gm Q15M PRN BUCCAL DECREASED GLUCOSE; Start 06/23/16 at 19 :30 Pregabalin 75 mg 75 mg BID PO Last administered on 06/26/16 08:39; Admin Dose 75 MG; Start 06/24/16 at 10:30 Ferric Sodium Gluconate Complex/ Sodium Chloride (Ferrlecit/NS) 110 ml @ 100 mls/hr Q24H IVPB Last administered on 06/25/16 12:56; Admin Dose 100 MLS/HR; Start 06/24/16 at 12:00; Stop 06/26/16 at 13:05 Senna (Senokot) 2 tab QHS PO Last administered on 06/24/16 21:40; Admin Dose 2 TAB; Start 06/24/16 at 21:00 Hydromorphone HCl 1 mg 1 mg Q6H PRN IV PAIN Last administered on 06/26/16 06: 46; Admin Dose 1 MG; Start 06/24/16 at 10:30 Vancomycin HCl/ Sodium Chloride (Vancocin/NS) 250 ml @ 83.333 mls/ hr Q8H IVPB Last administered on 06/26/16 06:46; Admin Dose 83.333 MLS/HR; Start at 22:00 Fluconazole (Diflucan) 200 mg DAILY PO Last administered on 06/26/16 08:39; Admin Dose 200 MG; Start 06/26/16 at 09:00; Stop 06/30/16 at 08:59 LEVI NG Jun 26, 2016 10:27
--- NOTE | 2016-06-26 10:32 | QN ---
Documentation Comment LATE PROGRESS NOTE DATE OF SERVICE: 06/25/16 SUBJECTIVE: Patient reports improved LE pain, but now with migraines and nausea ?Drug seeking Vitals Vital Signs Date Time Temp Pulse Resp B/P Pulse Ox O2 Delivery O2 Flow Rate FiO2 06/24/16 09:10 88 20 96 21 06/24/16 07:30 98.5 124/57 06/24/16 05:22 2.0 Intake and Output 06/23/16 06/23/16 06/24/16 14:59 22:59 06:59 Intake Total 1080 ml Balance 1080 ml Exam Constitutional: alert, distress, obese (morbidly), oriented Psych: anxiety Head: atraumatic, normocephalic Eyes: PERRL ENMT: mucosa pink and moist Neck: supple Respiratory: clear to auscultation Cardiovascular: regular rate and rhythm, No murmurs/extra sounds Gastrointestinal: bowel sounds, non-tender, soft Musculoskeletal: No nl extremities to inspection Neurological: other (patient jumps when you touch her leg. The degree of pain ios not commensurate with cellulitis identified) Skin: other (cellulitis RLE), rash or lesions (multiple psoriatic lesions) Assessment/Plan VTE Prophylaxis VTE Prophylaxis Intervention: LMWH Lines/Catheters IV Catheter Type (from Nrsg): Peripheral IV Assessment/Plan Assessment/Plan A 45-year-old morbidly obese female with: 1. Sepsis likely secondary to #2. improved; d/c when 24hr fever free 2. Acute upper respiratory infection, rule out atypical pneumonia. improved ; cont abx 3. Right lower extremity cellulitis. abx 4. Microcytic hypochromic anemia. 2/2 iron deficiency; will replace with iV iron 5. 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 Prediabetes. continue SSI , metformin, 7. Chronic depression and anxiety. stable on home meds 8. Chronic pain. patient has a med seeking behavior, will titrate opiods with caution; patient is also on nsaids, continues on her home regimen as well 9. History of gastritis. 10. Chronic sleep apnea. 11. LE neuropathic pain: improved on lyrica, pain is out of proportion for cellulitis 12. + blood cultures: cont abx / f/u org ID and sensitivities/ repeat blood cultures / will need negative set prior to d/c Prophylaxis: lovenox/ pepcid Further evaluation and treatment will be based on clinical course Full discussion with care team done. All questions Answered Please also see orders. LEVI NG Jun 26, 2016 10:32
[2016-06-26] MEDS ORDERED: CEFTRIAXONE 1 GM/50 ML (PMX) 50 ML IVPB SCH (11:00)
[2016-06-26] MEDS: SOD FERRIC GLUC COMPLX 125 MG in SOD CHLORIDE 0.9% 100 ML IVPB SCH (12:24)
[2016-06-26] MEDS ORDERED: CLINDAMYCIN 900 MG/D5W (PMX) 50 ML IVPB SCH (14:00)
[2016-06-26] MEDS ORDERED: LEVOFLOXACIN 750MG/D5W (PMX) 150 ML IVPB SCH (17:00)
[2016-06-26 20:08] VITALS: BP 123/58; RESP 20
[2016-06-26] MEDS ORDERED: HYDROmorphONE 1 MG/ML SYG IV PRN (21:00)
[2016-06-26] MEDS: SENNA TAB PO SCH (21:00)
[2016-06-26] MEDS: ACETAMINOPHEN 325 MG TAB PO PRN (22:40)
[2016-06-27] MEDS: VANCOMYCIN 1.25 GM in SOD CHLORIDE 0.9% 250 ML IVPB SCH ×3 (06:14→22:17)
[2016-06-27] MEDS: HYDROmorphONE 1 MG/ML SYG IV PRN ×2 (06:19→21:22)
[2016-06-27 07:22] VITALS: BP 127/68; RESP 20
[2016-06-27] MEDS: metFORMIN 500 MG TAB PO SCH (07:54)
[2016-06-27] MEDS: INSULIN ASPART [NOVOLOG] 3 ML PEN SC SCH ×4 (07:55→21:00)
[2016-06-27] MEDS: DOCUSATE SODIUM 100 MG CAP PO SCH ×2 (08:02→21:00)
[2016-06-27] MEDS: ASPIRIN (EC) 81 MG TAB PO SCH (08:20)
[2016-06-27] MEDS: FLUCONAZOLE 200 MG TAB PO SCH (08:20)
[2016-06-27] MEDS: BENAZEPRIL 40 MG TAB PO SCH (08:20)
[2016-06-27] MEDS: FAMOTIDINE 20 MG TAB PO SCH ×2 (08:20→21:22)
[2016-06-27] MEDS: ENOXAPARIN 40 MG/0.4 ML SYG SC SCH (08:27)
[2016-06-27] MEDS: PREGABALIN 75 MG CAP PO SCH ×2 (08:28→21:22)
[2016-06-27] MEDS ORDERED: HYDR-902 PO (09:43)
[2016-06-27] MEDS ORDERED: GABA100C14 PO (09:43)
[2016-06-27] MEDS ORDERED: DOCU-144 PO (09:43)
[2016-06-27] MEDS ORDERED: LYR75 PO (09:43)
--- NOTE | 2016-06-27 09:51 | DS ---
Date/Time of Note Date/Time of Note DATE: 06/27/16 TIME: 09:43 Discharge Summary Admission/Discharge Info Admit Date/Time Jun 24, 2016 at 12:29 Discharge Date/Time 06/27/16 Final Diagnosis A 45-year-old morbidly obese female with: 1. Sepsis likely secondary to #2.: resolved 2. Acute upper respiratory infection: resolved 3. Right lower extremity cellulitis: improved 4. Microcytic hypochromic anemia: 2/2 iron deficiency; s/p IV iron replacement on oral iron maintenance 5. Strep Pyogenes bacteremia: to complete 2 week of home IV abx 6. Prediabetes: metformin, 7. Chronic depression and anxiety: stable on home meds 8. Chronic pain with med seeking behavior: continues on her home regimen 9. History of gastritis. 10. Chronic sleep apnea. 11. LE neuropathic pain: Started on lyrica, 12. 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 Hospital Course Full details are availalble in e chart for review in summary this 45 yo morbidly obese female came in with fever, LE pain and cellulitis, and cough and was managed for the diagnoses listed above. Blood cultures came back postive for Strep Pyogenes, but repeat done after 3 days of abx came back negative. Patient was also given a chlorhexidine bath for recurrent cellulitis. She will need to be treated for a total of 2 weeks with IV abx for Strep Pyogenes per ID recs. She was also complaining of severe LE pain that was out of proportion to her cellulitis and this responded well to lyrica therapy. Patient did exhibit behaviour that was concerning for drug seeking however, stating dilaudid was the only medication that could control her pain Other Comorbidities were also aggressively managed as per Med records. Patient at this time has been evaluated and examined in detail and is assessed to be in stable condition and ready for discharge. Time spent on final evaluation and assessment, discharge planning, counselling and coordination has been >40mins. Home Meds Active Scripts Gabapentin* (Gabapentin*) 100 Mg Capsule, 100 MG PO BID, #90 CAP 2 Refills Patient is to titrate dose, increasing it by 100mg every 48h to a total dose of 300mg TID. Thanks Prov:LEVI NG 06/27/16 Pregabalin* (Lyrica*) 75 Mg Capsule, 75 MG PO BID for 30 Days, CAP Prov:LEVI NG. 06/27/16 Docusate Sodium* (Colace*) 100 Mg Capsule, 100 MG PO BID for 30 Days, CAP Prov:LEVI NG. 06/27/16 Hydrocodone/Acetaminophen ([place] 10-325 Tablet) 1 Each Tablet, 1 EACH PO DAILY Y for PRN, #14 TAB Prov:LEVI NG. 06/27/16 Reported Medications Albuterol Sulfate* (Proair HFA*) 8.5 Gm Hfa.aer.ad, 2 PUFF INH Q4H Y for WHEEZING AND SOB, #1 INHALER 06/23/16 Metformin Hcl* (Metformin Hcl*) 500 Mg Tablet, 500 MG PO WITH BREAKFAST, #30 TAB 06/23/16 Ibuprofen* (Ibuprofen*) 800 Mg Tab, 800 MG PO TID Y for PRN, TAB 06/23/16 Benazepril Hcl* (Benazepril Hcl*) 40 Mg Tablet, 40 MG PO DAILY, #30 TAB 06/23/16 Alprazolam* (Xanax*) 1 Mg Tab, 1 MG PO QHS Y for ANXIETY, TAB 06/23/16 Discontinued Reported Medications Oxycodone Hcl-Acetaminophen* (Percocet*) 1 Tab Tablet 06/13/12 Famotidine* (Famotidine*) 40 Mg Tablet 06/13/12 Hydrocodone Bit/Acetaminophen (Hydrocodone-[place] 7.5-750 Tab) 1 Tab Tablet, 1 TAB PO Q6-8HRS PRN 02/17/12 Ondansetron Hcl* (Zofran*) 4 Mg Tablet, 4 MG PO Q 4-6HRS PRN 02/17/12 Omeprazole* (Omeprazole*) 20 Mg Capsule.dr, 20 MG PO DAILY 02/17/12 Cimetidine (Cimetidine) 800 Mg Tablet, 800 MG PO BID 02/17/12 Ferrous Sulfate* (Ferrous Sulfate*) 325 Mg Tablet, 325 MG PO TID 02/17/12 Hydrochlorothiazide (Hydrochlorothiazide) 25 Mg Tablet, 25 MG PO AM 02/17/12 Sertraline Hcl* (Sertraline Hcl*) 100 Mg Tablet, 100 MG PO HS 9/6/12 Sertraline Hcl* (Sertraline Hcl*) 50 Mg Tablet, 50 MG PO HS 02/17/12 Discontinued Scripts Hydrocodone/Acetaminophen ([place] 5-325 Tablet) 1 Each Tablet, 1 TAB PO Q6H Y for PAIN, #20 TAB Prov:PARKER DAILEY Vinny 03/16/16 Sulfamethoxazole-Trimethoprim* (Bactrim* DS) 800-160 Mg Tab, 1 TAB PO BID for 7 Days, TAB Prov:RITU DAILEYLAURA Casillas 03/16/16 Cephalexin* (Keflex*) 500 Mg Capsule, 500 MG PO QID for 7 Days, CAP Prov:RITU DAILEYLAURA Casillas 03/16/16 Amox Tr/Potassium Clavulanate (Amox Tr-K Clv 875-125 Mg Tab) 1 Tab Tablet, 1 TAB PO BID for 7 Days, #20 TAB Prov:YOHANA ROSA MD 10/26/15 Follow-up Plan Followup with your primary doctor within the next 1-2 weeks. If you don't have one please let someone know, we can give you resources that may help you pick one. You may also call your insurance company to assign one to you. Review your medication list with your nurse before leaving and if you need new prescriptions please let your nurse know. I may have made changes to your home medications or given you new prescriptions , please let your primary doctor know as well. Stay compliant with your medications and report any side effects to your PCP or pharmacist. Return to the ER if you have any concerns and cannot reach your doctors or call your insurance company, they usually have a nurse that can help you. Pending Labs Laboratory Tests Test 06/26/16 12:12 06/26/16 17:05 06/26/16 21:06 06/27/16 07:53 Bedside Glucose 106mg/dL (70-220) 122mg/dL (70-220) 147mg/dL (70-220) 94mg/dL (70-220) LEVI NG Jun 27, 2016 09:51
[2016-06-27] MEDS ORDERED: DIPHENHYDRAMINE 50 MG INJ IV PRN (14:00)
[2016-06-27] MEDS: AMOXICILLIN 500 MG CAP PO SCH ×2 (14:57→21:22)
--- NOTE | 2016-06-27 15:03 | RADRPT ---
PROCEDURE: XR Right Ankle. CLINICAL INDICATION: Right ankle pain. TECHNIQUE: 2 views. Frontal and lateral. COMPARISON: None. FINDINGS: There is no fracture or dislocation. There is diffuse soft tissue swelling. Articular surfaces are intact. There is a plantar calcaneal spur. There is no lytic or blastic lesion. There is no radiopaque foreign body. IMPRESSION: 1. Diffuse soft tissue swelling. 2. Plantar calcaneal spur. 3. Otherwise unremarkable images of the right ankle. RPTAT: QQ .Geoff Driscoll MD, MD Date Time Electronically viewed and signed by .Geoff Driscoll MD, on 06/27/2016 15:03 .R/
--- NOTE | 2016-06-27 15:03 | RADRPT ---
PROCEDURE: XR Right Tibia and Fibula. CLINICAL INDICATION: Right lower leg pain. TECHNIQUE: Two views. Frontal and lateral. COMPARISON: No prior studies are available for comparison. FINDINGS: There is no fracture or dislocation. There is diffuse soft tissue swelling. There are degenerative changes of the knee joint with osteophytes noted. The articular surfaces are otherwise intact. There is no lytic or blastic lesion. There is no radiopaque foreign body. IMPRESSION: 1. Diffuse soft tissue swelling. 2. Degenerative changes of the knee joint. 3. Otherwise unremarkable images of the right tibia and fibula. RPTAT: QQ .Geoff Driscoll MD, MD Date Time Electronically viewed and signed by .Geoff Driscoll MD, MD on 06/27/2016 15:02 .R/
--- NOTE | 2016-06-27 18:24 | CONS ---
DATE OF ADMISSION: 06/24/2016 DATE OF CONSULTATION: 06/27/2016 TYPE OF CONSULTATION: Infectious Disease. REASON FOR CONSULTATION: Antibiotic management. HISTORY OF PRESENT ILLNESS: Jesenia Cheney is a 45-year-old female who comes in with fever and lower e xtremity pain. PAST MEDICAL HISTORY: Past problems include: 1. Morbid obesity. 2. Sleep apnea. 3. Gastritis. 4. Chronic pain syndrome. 5. Depression. 6. Anemia of chronic disease. 7. Previous lower extremity cellulitis. 8. Laparoscopic cholecystectomy. 9. Status post . 10. ALLERGY TO MORPHINE. 11. Prediabetic status. Acutely, the patient comes in complaining of lower extremity pain, difficulty breathing with cough a nd fever associated with wheezing as well as production of greenish sputum and shortness of breath. She has a history of bilateral lower extremity cellulitis. The episode of coughing and URI began a bout a week ago. She complains of right knee pain, DVT workup is negative. Chest x-ray does not show pneumonia, but patient had significant leukocytosis and was admitted. On admission, her white count was 16.5, H and H of 11.2 and 35.4, platelet count 269,000. White cou nt on the was 6.2. BUN and creatinine is 18/0.86. A urine is negative for nitrite and leukocy te esterase. She has blood cultures which grew out strep pyogenes from 2 sets of blood. Blood cultu re on the is negative. Chest x-ray shows no active disease. The patient is on vancomycin and Levaquin. She was on clindam ycin. PAST MEDICAL HISTORY: Operations as outlined. FAMILY HISTORY: Noncontributory. SOCIAL HISTORY: She does not smoke, drink or abuse drugs. ALLERGIES: NONE TO PENICILLIN, SULFA OR FOODS. NOTED, SHE IS ALLERGIC TO MORPHINE. MEDICATIONS: Per chart. REVIEW OF SYSTEMS: Noncontributory. PHYSICAL EXAMINATION: GENERAL: The patient is a morbidly obese female who is alert, responsive, in no acute distress. Cur rently she is afebrile. SKIN: Without generalized rash. HEENT: Within normal limits. NECK: Supple. LYMPH NODES: None palpable. CHEST: Decreased breath sounds at the bases. HEART: Without murmur or gallop. ABDOMEN: Soft, obese, nontender, without organosplenomegaly or masses. EXTREMITIES: Right lower extremity with ongoing cellulitis with tenderness. The patient also has m ultiple psoriatic lesions. The cellulitis is described as improving at this point. IMPRESSION AND PLAN: The patient has cellulitis extending secondary to strep pyogenes. Vancomycin s hould be adequate. The Levaquin may not be. We may want to change the Levaquin to amoxicillin. I w ill dictate my findings to the hospitalist, to Dr. Ramirez. Dictated By: MEETA BRANDT MD, JD/JUNAID Conf#: [id number] DID#: [id number]
[2016-06-27] MEDS: CEFTRIAXONE 2 GM/50 ML (PMX) 50 ML IVPB SCH (19:01)
[2016-06-27 19:28] VITALS: BP 136/70; RESP 20
[2016-06-27] MEDS: SENNA TAB PO SCH (21:00)
[2016-06-27] MEDS: FLUOCINONIDE 0.05% 15 GM CR TOP SCH (21:22)
[2016-06-28 06:37] LABS: CREATININE 0.88 mg/dl (0.44-1.00)
[2016-06-28] MEDS: AMOXICILLIN 500 MG CAP PO SCH ×3 (07:04→22:17)
[2016-06-28] MEDS ORDERED: VANCOMYCIN 1 GM in NS 250 ML IVPB SCH (08:00)
[2016-06-28 08:09] VITALS: BP 152/73; RESP 20
[2016-06-28] MEDS: INSULIN ASPART [NOVOLOG] 3 ML PEN SC SCH ×4 (08:15→20:52)
--- NOTE | 2016-06-28 08:39 | PN ---
Date/Time of Note Date/Time of Note DATE: 06/28/16 TIME: 08:33 Assessment/Plan VTE Prophylaxis VTE Prophylaxis Intervention: LMWH Lines/Catheters IV Catheter Type (from Nrs): Saline Lock Urinary Cath still in place: No Assessment/Plan Chief Complaint/Hosp Course Assessment/Plan: 45-year-old morbidly obese female with: 1. Sepsis likely secondary to #2 and # 3 improved; cont abx 2. Acute upper respiratory infection, rule out atypical pneumonia. improved; cont abx 3. Right lower extremity cellulitis - redness sightly less since admission, but still warm, red, and tender to touch continue Vancomycin +Ampicillin + Ceftriaxone IV, f/u ID rec's, cx's consider wound care consult as well 4. Microcytic hypochromic anemia. 2/2 iron deficiency; will replace with iV iron 5. Strep Pyogenes bacteremia Repeat blood cultures still pending; will tailor abx therapy and continue vanco for cellulitis 6. Prediabetes. continue SSI , metformin, 7. Chronic depression and anxiety. stable on home meds 8. Chronic pain. patient has a med seeking behavior, wean opiods; patient is also on nsaids, continues on her home regimen as well 9. History of gastritis. 10. Chronic sleep apnea. 11. LE neuropathic pain: Started on lyrica, pain is out of proportion for cellulitis 12. 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 Exam/Review of Systems Vital Signs Vitals Vital Signs Date Time Temp Pulse Resp B/P Pulse Ox O2 Delivery O2 Flow Rate FiO2 06/28/16 08:09 98.3 68 20 152/73 93 06/28/16 01:41 2.0 06/26/16 08:00 Nasal Cannula 06/24/16 16:33 28 Intake and Output 06/27/16 06/27/16 06/28/16 14:59 22:59 06:59 Intake Total 1380 ml 750 ml Balance 1380 ml 750 ml Exam Constitutional: alert, less distress, obese (morbidly), oriented Psych: less anxiety Head: atraumatic, normocephalic Eyes: PERRL ENMT: mucosa pink and moist Neck: supple Respiratory: clear to auscultation Cardiovascular: regular rate and rhythm, No murmurs/extra sounds Gastrointestinal: bowel sounds, non-tender, soft Musculoskeletal: No nl extremities to inspection Neurological: no focal deficits Skin: other (cellulitis RLE inner thigh and calf still red, warm, and tender), rash or lesions (multiple psoriatic lesions) Results Result Diagram: 06/26/16 0500 06/28/16 0427 Results 24 hrs Laboratory Tests Test 06/27/16 11:40 06/27/16 17:20 06/27/16 21:27 06/28/16 04:27 Bedside Glucose 81 100 93 Blood Urea Nitrogen 16 Creatinine 0.88 Test 06/28/16 04:57 06/28/16 08:11 Vancomycin Level Trough 22.2 *H Bedside Glucose 97 Medications Medications Current Medications Aspirin (Halfprin) 81 mg DAILY PO Last administered on 06/27/16 08:20; Admin Dose 81 MG; Start 06/24/16 at 09:00 Enoxaparin Sodium (Lovenox) 40 mg DAILY SC Last administered on 06/27/16 08:27 ; Admin Dose 40 MG; Start 06/24/16 at 09:00 Famotidine (Pepcid) 20 mg BID PO Last administered on 06/27/16 21:22; Admin Dose 20 MG; Start 06/23/16 at 21:00 Docusate Sodium (Colace) 100 mg BID PO Last administered on 06/26/16 08:39; Admin Dose 100 MG; Start 06/23/16 at 21:00 Ondansetron HCl (Zofran Inj) 4 mg Q6H PRN IV NAUSEA AND/OR VOMITING Last administered on 06/26/16 18:09; Admin Dose 4 MG; Start 06/23/16 at 18:30 Acetaminophen/ Hydrocodone Bitart ([place] (7.5-325)) 1 tab Q6H PRN PO pain Last administered on 06/24/16 01:58; Admin Dose 1 TAB; Start 06/23/16 at 18:30 Acetaminophen (Tylenol Tab) 650 mg Q6H PRN PO PAIN AND OR ELEVATED TEMP Last administered on 06/26/16 22:40; Admin Dose 650 MG; Start 06/23/16 at 18:30 Alprazolam (Xanax) 1 mg QHS PRN PO ANXIETY; Start 06/23/16 at 19:00 Benazepril HCl (Lotensin) 40 mg DAILY PO Last administered on 06/27/16 08:20; Admin Dose 40 MG; Start 06/24/16 at 09:00 Miscellaneous Information 1 ea NOTE XX ; Start 06/23/16 at 19:30 Glucose (Glutose) 15 gm Q15M PRN PO DECREASED GLUCOSE; Start 06/23/16 at 19:30 Glucose (Glutose) 22.5 gm Q15M PRN PO DECREASED GLUCOSE; Start 06/23/16 at 19: 30 Dextrose (D50w Syringe) 25 ml Q15M PRN IV DECREASED GLUCOSE; Start 06/23/16 at 19:30 Dextrose (D50w Syringe) 50 ml Q15M PRN IV DECREASED GLUCOSE; Start 06/23/16 at 19:30 Glucagon (Glucagen) 1 mg Q15M PRN IM DECREASED GLUCOSE; Start 06/23/16 at 19:30 Glucose (Glutose) 15 gm Q15M PRN BUCCAL DECREASED GLUCOSE; Start 06/23/16 at 19 :30 Pregabalin (Lyrica) 75 mg BID PO Last administered on 06/27/16 21:22; Admin Dose 75 MG; Start 06/24/16 at 10:30 Senna (Senokot) 2 tab QHS PO Last administered on 06/24/16 21:40; Admin Dose 2 TAB; Start 06/24/16 at 21:00 Fluconazole (Diflucan) 200 mg DAILY PO Last administered on 06/27/16 08:20; Admin Dose 200 MG; Start 06/26/16 at 09:00; Stop 06/30/16 at 08:59 Hydromorphone HCl (Dilaudid) 1 mg Q12H PRN IV PAIN Last administered on 21:22; Admin Dose 1 MG; Start 06/26/16 at 18:30 Amoxicillin (Amoxicillin) 500 mg Q8 PO Last administered on 06/28/16 07:04; Admin Dose 500 MG; Start 06/27/16 at 14:00 Fluocinonide (Lidex 0.05% Cr) 1 applic TID TOP Last administered on 06/27/16 21:22; Admin Dose 1 APPLIC; Start 06/27/16 at 21:00 Diphenhydramine HCl 50 mg 50 mg Q6H PRN IV ITCHING; Start 06/27/16 at 14:00 Ceftriaxone Sodium 50 ml @ 100 mls/hr Q24H IVPB Last administered on t 19:01; Admin Dose 100 MLS/HR; Start 06/27/16 at 17:00 Vancomycin HCl (Vancocin) 250 ml @ 125 mls/hr Q8H IVPB ; Start 06/28/16 at 08: 00 NASREEN KATZ Jun 28, 2016 08:39
[2016-06-28] MEDS: BENAZEPRIL 40 MG TAB PO SCH (08:58)
[2016-06-28] MEDS: metFORMIN 500 MG TAB PO SCH (08:58)
[2016-06-28] MEDS: DOCUSATE SODIUM 100 MG CAP PO SCH ×2 (08:58→20:51)
[2016-06-28] MEDS: FAMOTIDINE 20 MG TAB PO SCH ×2 (08:58→20:51)
[2016-06-28] MEDS: ASPIRIN (EC) 81 MG TAB PO SCH (08:59)
[2016-06-28] MEDS: FLUOCINONIDE 0.05% 15 GM CR TOP SCH ×3 (08:59→20:52)
[2016-06-28] MEDS: PREGABALIN 75 MG CAP PO SCH ×2 (08:59→20:51)
[2016-06-28] MEDS: FLUCONAZOLE 200 MG TAB PO SCH (08:59)
[2016-06-28] MEDS: HYDROmorphONE 1 MG/ML SYG IV PRN ×2 (09:34→21:32)
[2016-06-28] MEDS: ONDANSETRON 4 MG INJ IV PRN ×2 (09:34→21:32)
[2016-06-28] MEDS: ENOXAPARIN 40 MG/0.4 ML SYG SC SCH (10:12)
[2016-06-28] MEDS: CEFTRIAXONE 2 GM/50 ML (PMX) 50 ML IVPB SCH (17:12)
[2016-06-28] MEDS: VANCOMYCIN 750 MG in SOD CHLORIDE 0.9% 150 ML IVPB SCH (17:13)
--- NOTE | 2016-06-28 17:40 | CONS ---
Date/Time of Note Date/Time of Note DATE: 06/28/16 TIME: 17:20 Assessment/Plan Assessment/Plan Chief Complaint/Hosp Course ID PROGRESS NOTE TOTAL ABX DAY # 6 => Vanco IV + Ceftriaxone 24H INTERVAL SUMMARY * Resting comfortably, quiet time on unit, no fevers, no new issues, pain medications onboard * CHART REVIEWED = DC Planning PHYSICAL EXAMINATION: GENERAL: 45 yo super morbid obese F HEENT: Unremarkable NECK: Supple, trachea midline. CHEST: Rise symmetrical without dyspnea HEART: RRR ABDOMEN: Soft, obese EXTREMITIES: Warm ID ASSESSMENT: 45 yo super morbid obese F w/BMI >77 admit with: 1. Sepsis w/fevers, leukocytosis on admission w/STREP PYOGENES Septicemia likely secondary to #2 # #3 * RESOLVED = DC planning 2. Right lower extremity cellulitis. 3. Hx of Psoriasis 4. BLEXT Neuropathic pain 5. Metabolic syndrome => Obesity, Pre-DM 6. Acute upper respiratory infection 7. Chronic depression and anxiety. 8. Chronic pain=> DRUG SEEKING BEHAVIOR = NSAIDS + OPIOIDS 9. Chronic sleep apnea suspect morbid obesity hypoventilation syndrome 10. History of gastritis. CURRENT ABX: # 6 => Vanco IV + Ceftriaxone ID RECOMMENDATIONS: CONTINUE Current ABX -> May DC to SNF or home w/HH ABX w/continued dose per pharmacy to complete 14 days = last day 07/06/16 * Vanco 750mg IV Q8H with continued dose per outpatient pharmacist until 07/06/16 * Ceftriaxone 2gm IVPB daily until 07/06/16 . Problems: Consultation Date/Type/Reason Admit Date/Time Jun 24, 2016 at 12:29 Initial Consult Date Exam/Review of Systems Vital Signs Vitals Vital Signs Date Time Temp Pulse Resp B/P Pulse Ox O2 Delivery O2 Flow Rate FiO2 06/28/16 08:09 98.3 68 20 152/73 93 06/28/16 01:41 2.0 06/26/16 08:00 Nasal Cannula 06/24/16 16:33 28 Intake and Output 06/27/16 06/27/16 06/28/16 15:00 23:00 07:00 Intake Total 1380 ml 750 ml Balance 1380 ml 750 ml Results Result Diagram: 06/26/16 0500 06/28/16 0427 Results 24 hrs Laboratory Tests Test 06/27/16 21:27 06/28/16 04:27 06/28/16 04:57 06/28/16 08:11 Bedside Glucose 93 97 Blood Urea Nitrogen 16 Creatinine 0.88 Vancomycin Level Trough 22.2 *H Test 06/28/16 11:54 06/28/16 17:08 Bedside Glucose 113 87 Medications Medications Current Medications Aspirin (Halfprin) 81 mg DAILY PO Last administered on 06/28/16 08:59; Admin Dose 81 MG; Start 06/24/16 at 09:00 Enoxaparin Sodium (Lovenox) 40 mg DAILY SC Last administered on 06/28/16 10:12 ; Admin Dose 40 MG; Start 06/24/16 at 09:00 Famotidine (Pepcid) 20 mg BID PO Last administered on 06/28/16 08:58; Admin Dose 20 MG; Start 06/23/16 at 21:00 Docusate Sodium (Colace) 100 mg BID PO Last administered on 06/28/16 08:58; Admin Dose 100 MG; Start 06/23/16 at 21:00 Ondansetron HCl (Zofran Inj) 4 mg Q6H PRN IV NAUSEA AND/OR VOMITING Last administered on 06/28/16 09:34; Admin Dose 4 MG; Start 06/23/16 at 18:30 Acetaminophen/ Hydrocodone Bitart ([place] (7.5-325)) 1 tab Q6H PRN PO pain Last administered on 06/24/16 01:58; Admin Dose 1 TAB; Start 06/23/16 at 18:30 Acetaminophen (Tylenol Tab) 650 mg Q6H PRN PO PAIN AND OR ELEVATED TEMP Last administered on 06/26/16 22:40; Admin Dose 650 MG; Start 06/23/16 at 18:30 Alprazolam (Xanax) 1 mg QHS PRN PO ANXIETY; Start 06/23/16 at 19:00 Benazepril HCl (Lotensin) 40 mg DAILY PO Last administered on 06/28/16 08:58; Admin Dose 40 MG; Start 06/24/16 at 09:00 Miscellaneous Information 1 ea NOTE XX ; Start 06/23/16 at 19:30 Glucose (Glutose) 15 gm Q15M PRN PO DECREASED GLUCOSE; Start 06/23/16 at 19:30 Glucose (Glutose) 22.5 gm Q15M PRN PO DECREASED GLUCOSE; Start 06/23/16 at 19: 30 Dextrose (D50w Syringe) 25 ml Q15M PRN IV DECREASED GLUCOSE; Start 06/23/16 at 19:30 Dextrose (D50w Syringe) 50 ml Q15M PRN IV DECREASED GLUCOSE; Start 06/23/16 at 19:30 Glucagon (Glucagen) 1 mg Q15M PRN IM DECREASED GLUCOSE; Start 06/23/16 at 19:30 Glucose (Glutose) 15 gm Q15M PRN BUCCAL DECREASED GLUCOSE; Start 06/23/16 at 19 :30 Pregabalin (Lyrica) 75 mg BID PO Last administered on 06/28/16 08:59; Admin Dose 75 MG; Start 06/24/16 at 10:30 Senna (Senokot) 2 tab QHS PO Last administered on 06/24/16 21:40; Admin Dose 2 TAB; Start 06/24/16 at 21:00 Fluconazole (Diflucan) 200 mg DAILY PO Last administered on 06/28/16 08:59; Admin Dose 200 MG; Start 06/26/16 at 09:00; Stop 06/30/16 at 08:59 Hydromorphone HCl (Dilaudid) 1 mg Q12H PRN IV PAIN Last administered on 09:34; Admin Dose 1 MG; Start 06/26/16 at 18:30 Amoxicillin (Amoxicillin) 500 mg Q8 PO Last administered on 06/28/16 13:17; Admin Dose 500 MG; Start 06/27/16 at 14:00 Fluocinonide (Lidex 0.05% Cr) 1 applic TID TOP Last administered on 06/28/16 13:17; Admin Dose 1 APPLIC; Start 06/27/16 at 21:00 Diphenhydramine HCl 50 mg 50 mg Q6H PRN IV ITCHING; Start 06/27/16 at 14:00 Ceftriaxone Sodium 50 ml @ 100 mls/hr Q24H IVPB Last administered on 17:12; Admin Dose 100 MLS/HR; Start 06/27/16 at 17:00 Vancomycin HCl/ Sodium Chloride (Vancocin/NS) 150 ml @ 75 mls/hr Q8H IVPB Last administered on 06/28/16 17:13; Admin Dose 75 MLS/HR; Start 06/28/16 at 17 :00 ADEALIDE ATWOOD NP Jun 28, 2016 17:31
[2016-06-28 20:11] VITALS: BP 152/70; RESP 20
[2016-06-28] MEDS: SENNA TAB PO SCH (20:51)
[2016-06-29] MEDS: VANCOMYCIN 750 MG in SOD CHLORIDE 0.9% 150 ML IVPB SCH ×3 (00:54→17:41)
[2016-06-29 06:22] LABS: POTASSIUM 4.2 mmol/L (3.5-5.1)
[2016-06-29] MEDS: AMOXICILLIN 500 MG CAP PO SCH (06:24)
[2016-06-29 06:25] LABS: CREATININE 0.94 mg/dl (0.44-1.00)
[2016-06-29 06:26] LABS: CALCIUM 8.7 mg/dl (8.4-10.2)
[2016-06-29 07:16] LABS: BASOPHILS % 0.5 % (0.0-2.0); EOSINOPHILS # 0.1 10^3/ul (0.0-0.5); EOSINOPHILS % 1.4 % (0.0-7.0); HEMATOCRIT 32.3 % (37.0-47.0); HEMOGLOBIN 10.4 g/dl (12.0-16.0); LYMPHOCYTES # 2.3 10^3/ul (0.8-2.9); LYMPHOCYTES % 27.4 % (15.0-51.0); MEAN CORPUSCULAR HEMOGLOBIN 22.7 pg (29.0-33.0); MEAN CORPUSCULAR HGB CONC 32.1 g/dl (32.0-37.0); MEAN CORPUSCULAR VOLUME 70.6 fl (82.0-101.0); MEAN PLATELET VOLUME 7.5 fl (7.4-10.4); MONOCYTE # 0.4 10^3/ul (0.3-0.9); MONOCYTES % 5.1 % (0.0-11.0); NEUTROPHIL # 5.5 10^3/ul (1.6-7.5); NEUTROPHILS % 65.6 % (39.0-77.0); PLATELET COUNT 342 10^3/UL (140-440); RED BLOOD COUNT 4.58 10^6/ul (4.20-5.40); RED CELL DISTRIBUTION WIDTH 19.3 % (11.5-14.5); UNCORRECTED WBC 8.4 10^3/ul (4.8-10.8); WHITE BLOOD COUNT 8.4 10^3/ul (4.8-10.8)
[2016-06-29 07:28] LABS: CONDITION 1; LH ANALYZER COMMENTS 1
[2016-06-29 07:53] VITALS: BP 137/82; RESP 20
[2016-06-29] MEDS: INSULIN ASPART [NOVOLOG] 3 ML PEN SC SCH ×4 (08:01→21:00)
[2016-06-29] MEDS: FAMOTIDINE 20 MG TAB PO SCH ×2 (08:21→21:10)
[2016-06-29] MEDS: PREGABALIN 75 MG CAP PO SCH ×2 (08:21→21:10)
[2016-06-29] MEDS: FLUCONAZOLE 200 MG TAB PO SCH (08:21)
[2016-06-29] MEDS: metFORMIN 500 MG TAB PO SCH (08:21)
[2016-06-29] MEDS: ASPIRIN (EC) 81 MG TAB PO SCH (08:22)
[2016-06-29] MEDS: BENAZEPRIL 40 MG TAB PO SCH (08:22)
[2016-06-29] MEDS: DOCUSATE SODIUM 100 MG CAP PO SCH ×2 (08:22→21:10)
[2016-06-29] MEDS: FLUOCINONIDE 0.05% 15 GM CR TOP SCH ×3 (08:22→21:10)
[2016-06-29] MEDS: ENOXAPARIN 40 MG/0.4 ML SYG SC SCH (08:31)
[2016-06-29] MEDS: HYDROmorphONE 1 MG/ML SYG IV PRN ×2 (09:21→21:17)
--- NOTE | 2016-06-29 09:58 | PN ---
Date/Time of Note Date/Time of Note DATE: 06/29/16 TIME: 09:54 Assessment/Plan VTE Prophylaxis VTE Prophylaxis Intervention: LMWH Lines/Catheters IV Catheter Type (from Nrs): [place] Urinary Cath still in place: No Assessment/Plan Chief Complaint/Hosp Course Assessment/Plan: 45-year-old morbidly obese female with: 1. Sepsis likely secondary to #2 and # 3 improved; cont abx 2. Acute upper respiratory infection, rule out atypical pneumonia. improved; cont abx 3. Right lower extremity cellulitis - redness sightly less since admission, but still warm, red, and tender to touch continue Vancomycin +Ampicillin + Ceftriaxone IV - will need tx with these abx until 07/06/16. consider wound care consult as well 4. Microcytic hypochromic anemia. 2/2 iron deficiency - iV iron 5. Strep Pyogenes bacteremia Repeat blood cultures still pending; will tailor abx therapy and continue vanco for cellulitis 6. Prediabetes. continue SSI , metformin, 7. Chronic depression and anxiety. stable on home meds 8. Chronic pain. patient has a med seeking behavior, wean opiods; patient is also on nsaids, continues on her home regimen as well 9. History of gastritis. 10. Chronic sleep apnea. 11. LE neuropathic pain: Started on lyrica, pain is out of proportion for cellulitis 12. Morbid obesity patient on low calorie diet ; foreign language interpreter consulted for counselling 13. right breast pain - will get surgery consult for I+D of possible abscess here. Prophylaxis: lovenox/ pepcid Problems: Subjective 24 Hr Interval Summary Free Text/Dictation Pt complaining of less RLE pain, but now has + right breast pain. Exam/Review of Systems Vital Signs Vitals Vital Signs Date Time Temp Pulse Resp B/P Pulse Ox O2 Delivery O2 Flow Rate FiO2 06/29/16 07:53 97.6 69 20 137/82 92 06/28/16 01:41 2.0 06/26/16 08:00 Nasal Cannula Intake and Output 06/28/16 06/28/16 06/29/16 15:00 23:00 07:00 Intake Total 770 ml 630 ml Balance 770 ml 630 ml Exam Constitutional: alert, less distress, obese (morbidly), oriented Psych: less anxiety Head: atraumatic, normocephalic Eyes: PERRL ENMT: mucosa pink and moist Neck: supple BREAST: - tender 5x7 cm fluctuant lesion underneath right breast Respiratory: clear to auscultation Cardiovascular: regular rate and rhythm, No murmurs/extra sounds Gastrointestinal: bowel sounds, non-tender, soft Musculoskeletal: No nl extremities to inspection Neurological: no focal deficits Skin: other (cellulitis RLE inner thigh and calf still red, warm, and tender), rash or lesions (multiple psoriatic lesions) Results Result Diagram: 06/29/16 0455 06/29/16 0415 Results 24 hrs Laboratory Tests Test 06/28/16 11:54 06/28/16 17:08 06/28/16 20:49 06/29/16 04:15 Bedside Glucose 113 87 95 Anion Gap 15 Blood Urea Nitrogen 14 Calcium Level 8.7 Carbon Dioxide Level 33 H Chloride Level 100 Creatinine 0.94 Glucose Level 87 Potassium Level 4.2 Sodium Level 144 Test 06/29/16 04:55 06/29/16 07:56 Basophils # 0.0 Basophils % 0.5 Blood Morphology Comment Eosinophils # 0.1 Eosinophils % 1.4 Hematocrit 32.3 L Hemoglobin 10.4 L Lymphocytes # 2.3 Lymphocytes % 27.4 Mean Corpuscular Hemoglobin 22.7 L Mean Corpuscular Hemoglobin Concent 32.1 Mean Corpuscular Volume 70.6 L Mean Platelet Volume 7.5 Monocytes # 0.4 Monocytes % 5.1 Neutrophils # 5.5 Neutrophils % 65.6 Nucleated Red Blood Cells # 0.0 Nucleated Red Blood Cells % 0.0 Platelet Count 342 # Red Blood Count 4.58 Red Cell Distribution Width 19.3 H White Blood Count 8.4 # Bedside Glucose 94 Medications Medications Current Medications Aspirin (Halfprin) 81 mg DAILY PO Last administered on 06/29/16 08:22; Admin Dose 81 MG; Start 06/24/16 at 09:00 Enoxaparin Sodium (Lovenox) 40 mg DAILY SC Last administered on 06/29/16 08:31 ; Admin Dose 40 MG; Start 06/24/16 at 09:00 Famotidine (Pepcid) 20 mg BID PO Last administered on 06/29/16 08:21; Admin Dose 20 MG; Start 06/23/16 at 21:00 Docusate Sodium (Colace) 100 mg BID PO Last administered on 06/29/16 08:22; Admin Dose 100 MG; Start 06/23/16 at 21:00 Ondansetron HCl (Zofran Inj) 4 mg Q6H PRN IV NAUSEA AND/OR VOMITING Last administered on 06/28/16 21:32; Admin Dose 4 MG; Start 06/23/16 at 18:30 Acetaminophen/ Hydrocodone Bitart ([place] (7.5-325)) 1 tab Q6H PRN PO pain Last administered on 06/24/16 01:58; Admin Dose 1 TAB; Start 06/23/16 at 18:30 Acetaminophen (Tylenol Tab) 650 mg Q6H PRN PO PAIN AND OR ELEVATED TEMP Last administered on 06/26/16 22:40; Admin Dose 650 MG; Start 06/23/16 at 18:30 Alprazolam (Xanax) 1 mg QHS PRN PO ANXIETY; Start 06/23/16 at 19:00 Benazepril HCl (Lotensin) 40 mg DAILY PO Last administered on 06/29/16 08:22; Admin Dose 40 MG; Start 06/24/16 at 09:00 Miscellaneous Information 1 ea NOTE XX ; Start 06/23/16 at 19:30 Glucose (Glutose) 15 gm Q15M PRN PO DECREASED GLUCOSE; Start 06/23/16 at 19:30 Glucose (Glutose) 22.5 gm Q15M PRN PO DECREASED GLUCOSE; Start 06/23/16 at 19: 30 Dextrose (D50w Syringe) 25 ml Q15M PRN IV DECREASED GLUCOSE; Start 06/23/16 at 19:30 Dextrose (D50w Syringe) 50 ml Q15M PRN IV DECREASED GLUCOSE; Start 06/23/16 at 19:30 Glucagon (Glucagen) 1 mg Q15M PRN IM DECREASED GLUCOSE; Start 06/23/16 at 19:30 Glucose (Glutose) 15 gm Q15M PRN BUCCAL DECREASED GLUCOSE; Start 06/23/16 at 19 :30 Pregabalin (Lyrica) 75 mg BID PO Last administered on 06/29/16 08:21; Admin Dose 75 MG; Start 06/24/16 at 10:30 Senna (Senokot) 2 tab QHS PO Last administered on 06/24/16 21:40; Admin Dose 2 TAB; Start 06/24/16 at 21:00 Fluconazole (Diflucan) 200 mg DAILY PO Last administered on 06/29/16 08:21; Admin Dose 200 MG; Start 06/26/16 at 09:00; Stop 06/30/16 at 08:59 Hydromorphone HCl (Dilaudid) 1 mg Q12H PRN IV PAIN Last administered on 09:21; Admin Dose 1 MG; Start 06/26/16 at 18:30 Amoxicillin (Amoxicillin) 500 mg Q8 PO Last administered on 06/29/16 06:24; Admin Dose 500 MG; Start 06/27/16 at 14:00 Fluocinonide (Lidex 0.05% Cr) 1 applic TID TOP Last administered on 06/29/16 08:22; Admin Dose 1 APPLIC; Start 06/27/16 at 21:00 Diphenhydramine HCl 50 mg 50 mg Q6H PRN IV ITCHING; Start 06/27/16 at 14:00 Ceftriaxone Sodium 50 ml @ 100 mls/hr Q24H IVPB Last administered on 17:12; Admin Dose 100 MLS/HR; Start 06/27/16 at 17:00 Vancomycin HCl/ Sodium Chloride (Vancocin/NS) 150 ml @ 75 mls/hr Q8H IVPB Last administered on 06/29/16 09:20; Admin Dose 75 MLS/HR; Start 06/28/16 at 17 :00 Miscellaneous Information (*Rx Drug Level Order Reminder*) VANCO TROUGH @ 0, 000 ON... ONCE ONCE XX ; Start 06/30/16 at 00:00; Stop 06/30/16 at 00:01 NASREEN KATZ Jun 29, 2016 09:58
[2016-06-29] MEDS ORDERED: LIDOCAINE 1% (MDV) 20 ML INJ SC ONE (10:00)
--- NOTE | 2016-06-29 17:04 | PN ---
DATE: 06/29/2016 SUBJECTIVE: No acute changes overnight. The patient is alert, complaining of right lower extremity pain. She is in no distress. No fevers. WBC 8.4, no shift, no bands. BUN 14, creatinine 0.94. MICROBIOLOGY: Blood culture on admission grew strep pyogenes, repeat blood cultures negative. ANTIMICROBIALS: The patient is on: 1. Vancomycin. 2. Rocephin. 3. She was also started on amoxicillin. PHYSICAL EXAMINATION: GENERAL: Morbidly obese, well-developed, middle-aged woman who is awake, in no distress. HEENT: Head atraumatic, normocephalic. Sclerae anicteric. Buccal mucosa dry. NECK: Supple. CHEST: Rise symmetrical. Breath sounds diminished to bases. HEART: S1, S2. ABDOMEN: Soft. Bowel tones present. EXTREMITIES: Bilateral lower extremity edema. Right lower extremity with erythema extending up to the inner thigh. ASSESSMENT: 1. Streptococcal bacteremia on admission, likely secondary to right lower extremity cellulitis, repeat blood cultures negative. 2. Morbid obesity. 3. Right lower extremity cellulitis. 4. Status post systemic inflammatory response syndrome. PLAN: The patient remains stable. We are going to check a 2D echo to make sure her heart valves are clean and there is no vegetation. Continue her on current antimicrobials. Keep right lower extremity elevated. Dictated By: RADHA SANTACRUZ DESIGN AGENT for MEETA JO/JUNAID Conf#: [id number] DID#: [id number] MTDD
--- NOTE | 2016-06-29 17:13 | RADRPT ---
PROCEDURE: XR Chest. CLINICAL INDICATION: Check PICC line position. TECHNIQUE: Single frontal view. COMPARISON: 06/23/2016. FINDINGS: There is a left arm PICC line with the tip in the lower superior vena cava. The lungs are clear. The heart is enlarged. There is no pleural effusion. There is no pneumothorax. IMPRESSION: 1. Satisfactory position of left arm PICC line. 2. Cardiomegaly. 3. Clear lungs. RPTAT: QQ .Geoff Driscoll MD, Date Time Electronically viewed and signed by .Geoff Driscoll MD, on 06/29/2016 17:13 .R/
--- NOTE | 2016-06-29 17:15 | RADRPT ---
PROCEDURE: Ultrasound guidance for placement of needle in left upper extremity vein. CLINICAL INDICATION: Venous access. TECHNIQUE: Limited sonography of the left upper extremity was performed. Ultrasound images were recorded and s tored in the patient's medical record. COMPARISON: None. FINDINGS: The ultrasound images demonstrate a patent left upper extremity vein. The PICC line was inserted by the PICC line nurse. IMPRESSION: 1. Ultrasound guidance for a needle placement in a left upper extremity vein. 2. The left upper extremity vein is patent. RPTAT: QQ .Geoff Driscoll MD, MD Date Time Electronically viewed and signed by .Geoff Driscoll MD, MD on 06/29/2016 17:15 .R/
[2016-06-29] MEDS: CEFTRIAXONE 2 GM/50 ML (PMX) 50 ML IVPB SCH (17:40)
[2016-06-29] MEDS ORDERED: SOD CHLORIDE 0.9% 100 ML ONE (17:45)
--- NOTE | 2016-06-29 18:33 | CONS ---
DATE OF ADMISSION: 06/24/2016 DATE OF CONSULTATION: 06/29/2016 SUBJECTIVE FINDINGS: The patient being followed for a right lower extremity cellulitis. The patien t with leukocytosis with strep pyogenes septicemia upon admission. The patient has multiple lesions on her foot from psoriasis and recommended topical corticosteroid. The patient relates decreased s welling and redness persists on the medial aspect of the right leg, thigh and pannus. OBJECTIVE FINDINGS VITAL SIGNS: Temperature 97.6, pulse is 69, respiratory rate 20, blood pressure 137/82, pulse oxime try is 92. EXTREMITIES: The patient is alert, oriented, no cough. Patient obese with a pannus erythema locate d to pannus, medial thigh, and medial lower leg. Multiple psoriatic plaques in the dorsal aspect of the foot. There is no foot pain, mild ankle and lower leg pain. 2+ DP, PT pulses. Dystrophic roin ls. The patient has a 5/5 dorsiflexion, plantar flexion of her ankle. X-rays, right tib-fibula diff use soft tissue swelling, DJD of the knee and ankle. No fracture or dislocation. Articular surface s intact. No radiographic foreign body. Venous ultrasound, no evidence of deep vein thrombosis. C hest x-ray no active cardiopulmonary disease. ASSESSMENT: 1. Right lower extremity cellulitis. 2. Multiple psoriatic lesions. 3. Edema. 4. Morbid obesity. 5. Anemia of chronic disease. PLAN: Patient seen and evaluated, reviewed radiographs. No evidence of fracture or signs of foreig n body, cellulitis, clinically improving. Now localized to the medial aspect. The patient currentl y on vancomycin, ceftriaxone. The patient has a pending 2D echo and recommend continue application of topical corticosteroid. Dictated By: KEISHA REN/JUNAID Conf#: [id number] DID#: [id number]
[2016-06-29 19:37] VITALS: BP 143/68; RESP 20
[2016-06-29] MEDS: SENNA TAB PO SCH (21:10)
[2016-06-30] MEDS: VANCOMYCIN 750 MG in SOD CHLORIDE 0.9% 150 ML IVPB SCH ×2 (01:38→09:55)
[2016-06-30 06:27] LABS: BASOPHILS % 0.3 % (0.0-2.0); EOSINOPHILS # 0.2 10^3/ul (0.0-0.5); EOSINOPHILS % 1.8 % (0.0-7.0); HEMATOCRIT 31.9 % (37.0-47.0); HEMOGLOBIN 10.1 g/dl (12.0-16.0); LYMPHOCYTES % 23.7 % (15.0-51.0); MEAN CORPUSCULAR HEMOGLOBIN 22.3 pg (29.0-33.0); MEAN CORPUSCULAR HGB CONC 31.5 g/dl (32.0-37.0); MEAN CORPUSCULAR VOLUME 70.8 fl (82.0-101.0); MEAN PLATELET VOLUME 7.2 fl (7.4-10.4); MONOCYTE # 0.3 10^3/ul (0.3-0.9); MONOCYTES % 3.3 % (0.0-11.0); NEUTROPHIL # 6.1 10^3/ul (1.6-7.5); NEUTROPHILS % 70.9 % (39.0-77.0); PLATELET COUNT 348 10^3/UL (140-440); RED BLOOD COUNT 4.51 10^6/ul (4.20-5.40); RED CELL DISTRIBUTION WIDTH 19.4 % (11.5-14.5); UNCORRECTED WBC 8.6 10^3/ul (4.8-10.8); WHITE BLOOD COUNT 8.6 10^3/ul (4.8-10.8)
[2016-06-30 06:35] LABS: CONDITION 1; LH ANALYZER COMMENTS 1
[2016-06-30 06:40] LABS: POTASSIUM 3.9 mmol/L (3.5-5.1)
[2016-06-30 06:42] LABS: CREATININE 0.91 mg/dl (0.44-1.00)
[2016-06-30 06:43] LABS: CALCIUM 8.6 mg/dl (8.4-10.2)
[2016-06-30 07:21] VITALS: BP 152/71; RESP 22
[2016-06-30] MEDS: INSULIN ASPART [NOVOLOG] 3 ML PEN SC SCH ×2 (08:15→12:11)
[2016-06-30] MEDS: metFORMIN 500 MG TAB PO SCH (08:24)
[2016-06-30] MEDS: ASPIRIN (EC) 81 MG TAB PO SCH (08:24)
[2016-06-30] MEDS: DOCUSATE SODIUM 100 MG CAP PO SCH (08:24)
[2016-06-30] MEDS: FAMOTIDINE 20 MG TAB PO SCH (08:24)
[2016-06-30] MEDS: BENAZEPRIL 40 MG TAB PO SCH (08:24)
[2016-06-30] MEDS: PREGABALIN 75 MG CAP PO SCH (08:25)
[2016-06-30] MEDS: ENOXAPARIN 40 MG/0.4 ML SYG SC SCH (09:24)
--- NOTE | 2016-06-30 09:34 | PDOCDIS ---
Discharge Instructions CONDITION Patient Condition: Stable HOME CARE INSTRUCTIONS: Diet Instructions: Low Fat /Cholesterol ACTIVITY: Activity Restrictions: Slowly Increase Activity FOLLOW UP/APPOINTMENTS Appointments Please take your medications as prescribed, and see your doctor in the clinic in 1 week. NASREEN KATZ Jun 30, 2016 09:34
[2016-06-30] MEDS: FLUOCINONIDE 0.05% 15 GM CR TOP SCH (09:55)
--- NOTE | 2016-06-30 10:16 | DS ---
DATE OF ADMISSION: 06/24/2016 DATE OF DISCHARGE: 06/30/2016 HOSPITAL COURSE: The patient came in with fever, lower extremity pain. She was found with a right lower extremity cellulitis. She was admitted, seen by infectious disease team and podiatry team. The patient was started on IV antibiotics. She had an elevated white blood cell count when she was admitted and a fever. Her blood cultures were positive for group A strep, 2/2 bottles and sensitive to most antibiotics, so she was placed on broad-spectrum antibiotics for coverage of both of those infections. Over the course of her hospital stay, her fever subsided, her pain symptoms improved. Her cellulitis was resolving. She did receive a PICC line and will need IV antibiotics at home to complete treatment until 07/06/2016 has also been set up as well. She was also found to be prediabetic and continued on insulin medications. Her sugars were stable. Her A1c was 6.1. The patient was able to ambulate and tolerate a p.o. diet. Her vital signs are stable today and she will be discharged home today in improved condition. She also received IV iron for microcytic hypochromic anemia and her hemoglobin is stable. She also had right breast pain and there was an abscess that we were going to get surgery consult for but the abscess ended up "popping" and there is less pain and redness around that area, but she will be discharged home today in improved condition. DISCHARGE MEDICATIONS: She will be sent with the following medications: 1. Vancomycin IV dosing per pharmacy until 07/06/2016. 2. Rocephin 2 g IV daily until 07/06/2016. 3. Colace 100 mg p.o. b.i.d. 4. Gabapentin 100 mg p.o. b.i.d. 5. Lyrica 75 mg b.i.d. 6. ProAir HFA 2 puffs inhaled q. 4 p.r.n. 7. Xanax 1 mg p.o. at bedtime p.r.n. 8. Benazepril 40 mg daily. 9. Dana 10/325 daily p.r.n. 10. Ibuprofen 800 mg p.o. t.i.d. p.r.n. 11. Metformin 500 mg with breakfast. She needs to follow up with regular doctor in the next 1 to 2 weeks. FINAL DIAGNOSES: 1. Right lower extremity cellulitis, improved on antibiotics. 2. Group A strep bacteremia, now improved on antibiotics. 3. Microcytic hyperchromic anemia. 4. Prediabetes. A1c of 6.1, now on metformin. 5. Chronic depression and anxiety. 6. Sepsis secondary to #1 and #2, improved. 7. Chronic pain, possible med drug seeking behavior. 8. Chronic sleep apnea. 9. Lower extremity neuropathic pain. 10. Morbid obesity. 11. Right breast pain status post self-removal of abscess in the right breast. Time spent discharging patient 45 minutes. Dictated By: NASREEN TO/JUNAID Conf#: [id number] DID#: [id number]
[2016-06-30] MEDS ORDERED: CEFTRIAXONE 2 GM/50 ML (PMX) 50 ML IVPB SCH (13:00)
[2016-06-30] MEDS: HYDROmorphONE 1 MG/ML SYG IV PRN (13:28)
[2016-06-30] MEDS: ONDANSETRON 4 MG INJ IV PRN (13:28)
--- NOTE | 2016-06-30 13:43 | CONS ---
Date/Time of Note Date/Time of Note DATE: 06/30/16 TIME: 13:42 Consult Date/Type/Reason Admit Date/Time Jun 24, 2016 at 12:29 Initial Consult Date Type of Consultation: id Subjective alert, feels better, no fevers, nad Objective Vital Signs Date Time Temp Pulse Resp B/P Pulse Ox O2 Delivery O2 Flow Rate FiO2 06/30/16 07:21 97.9 69 22 152/71 95 06/28/16 01:41 2.0 06/26/16 08:00 Nasal Cannula Intake and Output 06/29/16 06/29/16 06/30/16 15:00 23:00 07:00 Intake Total 150 ml 890 ml 830 ml Output Total 400 ml Balance 150 ml 890 ml 430 ml Results/Medications Result Diagram: 06/30/16 0550 06/30/16 0550 Results 24 hrs Laboratory Tests Test 06/29/16 17:16 06/29/16 20:41 06/30/16 00:35 06/30/16 05:50 Bedside Glucose 103 106 Vancomycin Level Trough 14.7 Anion Gap 14 Basophils # 0.0 Basophils % 0.3 Blood Morphology Comment Blood Urea Nitrogen 14 Calcium Level 8.6 Carbon Dioxide Level 32 H Chloride Level 100 Creatinine 0.91 Eosinophils # 0.2 Eosinophils % 1.8 Glucose Level 89 Hematocrit 31.9 L Hemoglobin 10.1 L Lymphocytes # 2.0 Lymphocytes % 23.7 Mean Corpuscular Hemoglobin 22.3 L Mean Corpuscular Hemoglobin Concent 31.5 L Mean Corpuscular Volume 70.8 L Mean Platelet Volume 7.2 L Monocytes # 0.3 Monocytes % 3.3 Neutrophils # 6.1 Neutrophils % 70.9 Nucleated Red Blood Cells # 0.0 Nucleated Red Blood Cells % 0.0 Platelet Count 348 Potassium Level 3.9 Red Blood Count 4.51 Red Cell Distribution Width 19.4 H Sodium Level 142 White Blood Count 8.6 Test 06/30/16 08:13 06/30/16 11:31 Bedside Glucose 94 88 Medications Current Medications Aspirin (Halfprin) 81 mg DAILY PO Last administered on 06/30/16 08:24; Admin Dose 81 MG; Start 06/24/16 at 09:00 Enoxaparin Sodium (Lovenox) 40 mg DAILY SC Last administered on 06/30/16 09:24 ; Admin Dose 40 MG; Start 06/24/16 at 09:00 Famotidine (Pepcid) 20 mg BID PO Last administered on 06/30/16 08:24; Admin Dose 20 MG; Start 06/23/16 at 21:00 Docusate Sodium (Colace) 100 mg BID PO Last administered on 06/30/16 08:24; Admin Dose 100 MG; Start 06/23/16 at 21:00 Ondansetron HCl (Zofran Inj) 4 mg Q6H PRN IV NAUSEA AND/OR VOMITING Last administered on 06/30/16 13:28; Admin Dose 4 MG; Start 06/23/16 at 18:30 Acetaminophen/ Hydrocodone Bitart ([place] (7.5-325)) 1 tab Q6H PRN PO pain Last administered on 06/24/16 01:58; Admin Dose 1 TAB; Start 06/23/16 at 18:30 Acetaminophen (Tylenol Tab) 650 mg Q6H PRN PO PAIN AND OR ELEVATED TEMP Last administered on 06/26/16 22:40; Admin Dose 650 MG; Start 06/23/16 at 18:30 Alprazolam (Xanax) 1 mg QHS PRN PO ANXIETY; Start 06/23/16 at 19:00 Benazepril HCl (Lotensin) 40 mg DAILY PO Last administered on 06/30/16 08:24; Admin Dose 40 MG; Start 06/24/16 at 09:00 Miscellaneous Information 1 ea NOTE XX ; Start 06/23/16 at 19:30 Glucose (Glutose) 15 gm Q15M PRN PO DECREASED GLUCOSE; Start 06/23/16 at 19:30 Glucose (Glutose) 22.5 gm Q15M PRN PO DECREASED GLUCOSE; Start 06/23/16 at 19: 30 Dextrose (D50w Syringe) 25 ml Q15M PRN IV DECREASED GLUCOSE; Start 06/23/16 at 19:30 Dextrose (D50w Syringe) 50 ml Q15M PRN IV DECREASED GLUCOSE; Start 06/23/16 at 19:30 Glucagon (Glucagen) 1 mg Q15M PRN IM DECREASED GLUCOSE; Start 06/23/16 at 19:30 Glucose (Glutose) 15 gm Q15M PRN BUCCAL DECREASED GLUCOSE; Start 06/23/16 at 19 :30 Pregabalin (Lyrica) 75 mg BID PO Last administered on 06/30/16 08:25; Admin Dose 75 MG; Start 06/24/16 at 10:30 Senna (Senokot) 2 tab QHS PO Last administered on 06/29/16 21:10; Admin Dose 2 TAB; Start 06/24/16 at 21:00 Hydromorphone HCl (Dilaudid) 1 mg Q12H PRN IV PAIN Last administered on 13:28; Admin Dose 1 MG; Start 06/26/16 at 18:30 Fluocinonide (Lidex 0.05% Cr) 1 applic TID TOP Last administered on 06/30/16 09:55; Admin Dose 1 APPLIC; Start 06/27/16 at 21:00 Diphenhydramine HCl 50 mg 50 mg Q6H PRN IV ITCHING; Start 06/27/16 at 14:00 Vancomycin HCl 750 mg/Sodium Chloride 150 ml @ 75 mls/hr Q8H IVPB Last administered on 06/30/16 09:55; Admin Dose 75 MLS/HR; Start 06/28/16 at 17:00 Ceftriaxone Sodium (Rocephin) 50 ml @ 100 mls/hr Q24H IVPB Last administered on 06/30/16 12:11; Admin Dose 100 MLS/HR; Start 06/30/16 at 13:00 Assessment/Plan Chief Complaint/Hosp Course MICROBIOLOGY: Blood culture on admission grew strep pyogenes, repeat blood cultures negative. ANTIMICROBIALS: 1. Vancomycin. 2. Rocephin. PHYSICAL EXAMINATION: GENERAL: Morbidly obese, well-developed, middle-aged woman who is awake, in no distress. HEENT: Head atraumatic, normocephalic. Sclerae anicteric. Buccal mucosa dry. NECK: Supple. CHEST: Rise symmetrical. Breath sounds diminished to bases. HEART: S1, S2. ABDOMEN: Soft. Bowel tones present. EXTREMITIES: Bilateral lower extremity edema. Right lower extremity with erythema extending up to the inner thigh. ASSESSMENT: 1. Streptococcal bacteremia on admission, likely secondary to right lower extremity cellulitis, repeat blood cultures negative. 2. Morbid obesity. 3. Right lower extremity cellulitis. 4. Status post systemic inflammatory response syndrome. PLAN: The patient remains stable. Repeat bld cx negative, continue abx until , f/u 2D ECHO, encourage weight reduction DW staff Problems: RADHA SANTACRUZ NP Jun 30, 2016 13:43
--- NOTE | 2016-06-30 14:07 | RADRPT ---
Echocardiogram Report Patient Name: ALISE ARROYO Gender: Female Date: 1970 Study Date: 29-Jun-2016 Biological Technical Officer: Isabel Sanabria [facility] Location: 602 Ref. Physician: RADHA SANTACRUZ Quality: Technically Difficult Study Procedures: Transthoracic echocardiogram with complete 2D, M-Mode, and doppler examination. Indications: r/o vegetations. 2D/M Mode Doppler Measurement Value Normal Ranges Measurement Value Normal Ranges LVIDd 2D 5.3 3.5 - 5.6 cm LUIS M Vmax 2.6 cm2 LVIDs 2D 2.4 2.1 - 4.1 cm LUIS M VTI 2.6 cm2 LVPWd 2D 1.0 0.6 - 1.1 cm AV Mean [place] 1.7 m/sec IVSd 2D 1.0 0.6 - 1.1 cm AV Mean PG 14.9 mmHg AoR Diam 2D 2.9 2.0 - 3.7 cm AV Peak [place] 2.8 m/sec EDV 2D 136.2 cm3 AV Peak PG 30.8 mmHg ESV 2D 13.4 cm3 AV VTI 52.7 cm LA Dimen 2D 3.3 2.3 - 4.0 cm LVOT Mean [place] 1.0 m/sec LVOT Diam 2.4 cm LVOT Mean PG 5.2 mmHg LVOT Peak [place] 1.5 m/sec LVOT Peak PG 9.3 mmHg LVOT VTI 36.1 cm MV E Peak [place] 0.8 m/sec MV A Peak [place] 1.2 m/sec MV E/A 0.7 MV Decel Time 129 msec MV Decel Mower 6 MV E/A 0.7 TR Peak [place] 3.2 m/sec TR Peak PG 41.3 mmHg RVSP 44.0 mmHg Findings Left Ventricle: Normal left ventricular systolic function. Normal left ventricular cavity size. Mild concentric left ventricular hypertrophy. Ejection fraction is visually estimated at 60 %. Tissue Doppler/Mitral Doppler indices are consistent with impaired relaxation (Stage I diastolic dysfunction). Right Ventricle: Not well visualized. Left Atrium: The left atrium is normal in size. Right Atrium: Not well visualized. Mitral Valve: Normal appearance of the mitral valve. Mild mitral annular calcification. Trace mitral regurgitation. Aortic Valve: Aortic valve not well visualized. Mild aortic stenosis. Aortic valve Max velocity 2.77 m/sec. Max PG 30.80 mmHg. Mean PG 14.90 mmHg. Tricuspid Valve: Normal appearance of the tricuspid valve. Estimated peak PA systolic pressure 44 mmHg. There is mild tricuspid regurgitation. Pericardium: Normal pericardium with no significant pericardial effusion. Aorta: Normal aortic root. IVC: Normal size and normal respiratory collapse consistent with normal right atrial pressure. Conclusions 1.Normal left ventricular systolic function. Normal left ventricular cavity size. Mild concentric left ventricular hypertrophy. Ejection fraction is visually estimated at 60 %. Tissue Doppler/Mitral Doppler indices are consistent with impaired relaxation (Stage I diastolic dysfunction). 2.Trace mitral regurgitation. 3.Aortic valve not well visualized. Possible mild aortic stenosis by gradient assessment only. LUIS M not calculated. Mean PG 14.90 mmHg. 4.Normal appearance of the tricuspid valve. Estimated peak PA systolic pressure 44 mmHg. There is mild tricuspid regurgitation. Electronically Signed By: Liu Hernandez 30-Jun-2016 14:06:00 -0800 Patient Name: ALISE ARROYO Study Date: 29-Jun-2016 [id number]
--- NOTE | 2016-06-30 14:14 | CONS ---
DATE OF ADMISSION: 06/24/2016 DATE OF CONSULTATION: 06/27/2016 REASON FOR CONSULTATION: Right lower extremity cellulitis. HISTORY OF PRESENT ILLNESS: This is a 45-year-old female admitted with sepsis, cellulitis, upper respiratory infection. The patient has been on antibiotics with persistent right lower extremity erythema. The patient had relayed a history of chronic recurrent episodes of cellulitis. She has had a venous ultrasound, which came back negative for deep venous thrombosis. PAST MEDICAL HISTORY: Morbid obesity, sleep apnea, gastritis, chronic pain, depression, chronic anemia, recurring cellulitis, right lower extremity. The patient prediabetic. PAST SURGICAL HISTORY: Positive for laparoscopic cholecystectomy and . ALLERGIES: MORPHINE. FAMILY HISTORY: Positive for brain tumor, high blood pressure. SOCIAL HISTORY: No tobacco, alcohol, or illicit drug use. MEDICATIONS: Include: 1. Amoxicillin. 2. Clindamycin. 3. Diflucan. 4. Benazepril 40 mg daily. PHYSICAL EXAMINATION: VITAL SIGNS: Temperature 98.2, pulse 60, respiratory rate 20, blood pressure is 127/68, pulse ox is nml GENERAL: The patient alert, morbidly obese. HEENT: Head is normocephalic, atraumatic. NECK: Trachea is midline. PULMONARY: Regular respiration. EXTREMITIES: The patient is morbidly obese . Lyphedema to the right lower extremity. Cellulitis. No signs of ulceration. Calf pain. No tenderness right calf. 2+ DP pulse. multiple psoriatic lesions noted to dorsal aspect of both feet. LABORATORIES: WBC 6.2] Venous extremity ultrasound no evidence of deep vein thrombosis. Chest x-ray, no active cardiopulmonary disease. ASSESSMENT: 1. Right ankle pain. 2. Right extremity cellulitis. Positive blood culture with Strep 3. Right lower extremity cellulitis. 4. Morbid obesity. 6. psoriasis. 7. Chronic neuropathic pain. PLAN: H&P reviewed. Cont. IV abx. Rec topical antiseptic cautions. Chlorohexidine wipe daily. Monitor for clinical efficacy of abx. Likely will need hospitalization for 3-5 days. Dictated By: KEISHA REN/JUNAID Conf#: [id number] DID#: [id number] CC: LEVI NG MD;*EndCC* [facility]
== END 2016-06-30 14:00 | disposition home or self-care (01) | DRG 872 ==
LOC: E/R 13:40 → PP2 17:52 → MS2 06-24 05:54 → OBSVTOIN 06-24 12:29
PROVIDERS: ADMIT Family Medicine; ATTEND Hospitalist
PROC: 02H633Z Insertion of Infusion Device into Right Atrium, Percutaneous Approach (ICD-10-PCS; principal; 2016-06-29)
DX: A41.9 Sepsis, unspecified organism (principal); E66.2 Morbid (severe) obesity with alveolar hypoventilation; L03.115 Cellulitis of right lower limb; Z68.45 Body mass index [BMI] 70 or greater, adult; G62.9 Polyneuropathy, unspecified; J22 Unspecified acute lower respiratory infection; R73.03 Prediabetes; F41.9 Anxiety disorder, unspecified; F32.9 Major depressive disorder, single episode, unspecified; G89.29 Other chronic pain; G47.30 Sleep apnea, unspecified; N64.4 Mastodynia; L40.9 Psoriasis, unspecified; D63.8 Anemia in other chronic diseases classified elsewhere
CPT/HCPCS: 36415; 36569; 71010; 73590; 73600; 76937; 80048; 80061; 80076; 80202; 81001; 81003; 82565; 82746; 82962; 83036; 83540; 83735; 84443; 84520; 85025; 87040; 87400; 93306; 93971; 94640; 94664; 96374; 96375; 96376; 99217; C1769; G0378; J0696; J1170; J1650; J1815; J1885; J1956; J2405; J2916; J3370; J7030; J7040; J7050

== ENCOUNTER 2017-01-29 20:42 | Inpatient (IN) | payer MEDICARE, MEDICAID ==
[~2017-01-29] VITALS: Ht 162.6 cm; Wt 206.0 kg
[~2017-01-29 20:42] MED LIST changes: +ALBU8.5H3 INH; +ALPR1TAB2 PO; -AMOX1TAB10 PO; -BACTDS PO; +BENA40TA41 PO; -CEPH-443 PO; +DOCU-144 PO; -FAMO40TA52; -FERR-55 PO; +GABA100C14 PO; +HYDR-902 PO; -HYDR-906 PO; -HYDR25TA6 PO; +IBUP800T25 PO; +LYR75 PO; +METF500T4 PO; -OMEP20CA16 PO; -ONDA4TAB8 PO; -OXYC-281; -SERT-165 PO; -SERT50TA6 PO; -[UNRECOGNIZED DRUG - CODE] PO; -[UNRECOGNIZED DRUG - CODE] PO
--- NOTE | 2017-01-29 23:42 | ERD ---
ER Documentation Chief Complaint Date/Time DATE: 01/29/17 TIME: 23:33 Chief Complaint Chest wall pain and SOB x1 day (MELL BREWER) HPI 46-year-old woman presents with pressure-like chest discomfort radiating to the back associated with shortness of breath 1 day. She states she has a history of pulmonary embolism although is not currently using anticoagulants. Patient denies cough, no fevers or chills, no vomiting or diarrhea, no headache or blurry vision. (RADHA IZQUIERDO MD) ROS All systems reviewed and are negative except as per history of present illness. (MELL BREWER) Medications Home Meds Active Scripts Gabapentin* (Gabapentin*) 100 Mg Capsule, 100 MG PO BID, #90 CAP 2 Refills Patient is to titrate dose, increasing it by 100mg every 48h to a total dose of 300mg TID. Thanks Prov:CHANTAL NGOtilia Jas. 06/27/16 Pregabalin* (Lyrica*) 75 Mg Capsule, 75 MG PO BID for 30 Days, CAP Prov:BERENICEOLEGKAMALA M. 06/27/16 Docusate Sodium* (Colace*) 100 Mg Capsule, 100 MG PO BID for 30 Days, CAP Prov:LEVI NG M. 06/27/16 Hydrocodone/Acetaminophen ([place] 10-325 Tablet) 1 Each Tablet, 1 EACH PO DAILY Y for PRN, #14 TAB Prov:LEVI NG. 06/27/16 Reported Medications Albuterol Sulfate* (Proair HFA*) 8.5 Gm Hfa.aer.ad, 2 PUFF INH Q4H Y for WHEEZING AND SOB, #1 INHALER 06/23/16 Metformin Hcl* (Metformin Hcl*) 500 Mg Tablet, 500 MG PO WITH BREAKFAST, #30 TAB 06/23/16 Ibuprofen* (Ibuprofen*) 800 Mg Tab, 800 MG PO TID Y for PRN, TAB 06/23/16 Benazepril Hcl* (Benazepril Hcl*) 40 Mg Tablet, 40 MG PO DAILY, #30 TAB 06/23/16 Alprazolam* (Xanax*) 1 Mg Tab, 1 MG PO QHS Y for ANXIETY, TAB 06/23/16 Allergies Allergies: Coded Allergies: morphine (Verified Allergy, Unknown, 06/23/16) PMhx/Soc History of Surgery: Yes (C section GB sx) Anesthesia Reaction: No Hx Neurological Disorder: No Hx Respiratory Disorders: Yes (on and off breathing problem) Hx Cardiac Disorders: Yes (HTN) Hx Psychiatric Problems: Yes (anxiety depression) Hx Miscellaneous Medical Probl: No Hx Alcohol Use: No Hx Substance Use: No Hx Tobacco Use: No Smoking Status: Never smoker (DANIELLA,MELL) Super morbid obesity, asthma, diabetes mellitus, hypertension, (RADHA IZQUIERDO MD) FmHx Family History: No diabetes (RADHA IZQUIERDO MD) Physical Exam Vitals Vital Signs Date Time Temp Pulse Resp B/P Pulse Ox O2 Delivery O2 Flow Rate FiO2 01/30/17 00:31 98 22 124/86 96 Nasal Cannula 2.0 01/30/17 00:31 Nasal Cannula 2 01/29/17 21:10 100.1 99 22 114/82 94 (RADHA IZQUIERDO MD) Physical Exam GENERAL: Well-developed, well-nourished, well-hydrated, in no apparent distress , looks nontoxic in appearance HEENT: Moist mucous membranes, pink conjunctiva, no cervical spine tenderness or step-off deformities, no goiter, no jaundice or icterus, extraocular movements intact without pain. No submandibular induration, and no pharyngeal erythema NEURO: Alert and oriented 3, cranial nerves II through XII intact bilaterally, pupils equal round reactive to light, no focal deficits or facial asymmetry, sensation intact distally Strength 5/5 in upper and lower extremities bilaterally CARDIAC: Regular rate and rhythm, no murmurs rubs or gallops LUNGS: Clear bilaterally no wheezing crackles or stridor ABDOMEN: Soft nontender, no guarding, no rigidity, no rebound, no psoas sign no obturator sign. Normoactive bowel sounds SKIN: Warm and dry to touch, no abrasions, contusions, or hematomas, no lacerations, no ecchymosis, no target lesions, and without ulcers EXTREMITIES: No clubbing cyanosis or edema, calves are bilaterally symmetrical, no Homans sign, no popliteal cord sign. Distal pulses equal and bilateral PSYCH: Normal affect without agitation or irritability (RADHA IZQUIERDO MD) Result Diagram: 01/30/17 0028 01/30/17 0028 Results 24 hrs Laboratory Tests Test 01/30/17 00:28 White Blood Count 11.810^3/ul Red Blood Count 4.5610^6/ul Hemoglobin 10.3g/dl Hematocrit 34.9% Mean Corpuscular Volume 76.5fl Mean Corpuscular Hemoglobin 22.6pg Mean Corpuscular Hemoglobin Concent 29.5g/dl Red Cell Distribution Width 16.8% Platelet Count 67097^3/UL Mean Platelet Volume 9.7fl Neutrophils % 75.8% Lymphocytes % 17.3% Monocytes % 5.1% Eosinophils % 1.1% Basophils % 0.3% Nucleated Red Blood Cells % 0.0/100WBC Neutrophils # (Manual) 910^3/ul Lymphocytes # 2.010^3/ul Monocytes # 0.610^3/ul Eosinophils # 0.110^3/ul Basophils # 0.010^3/ul Nucleated Red Blood Cells # 0.010^3/ul Prothrombin Time 13.9Sec Prothrombin Time Ratio 1.1 INR International Normalized Ratio 1.07 Activated Partial Thromboplast Time 29.7Sec D-Dimer 1050.59ng/ml D-Dimer Comment Sodium Level 141mmol/L Potassium Level 4.4mmol/L Chloride Level 97mmol/L Carbon Dioxide Level 28mmol/L Anion Gap 20 Blood Urea Nitrogen 17mg/dl Creatinine 0.94mg/dl Glucose Level 121mg/dl Calcium Level 9.3mg/dl Total Bilirubin 0.4mg/dl Direct Bilirubin 0.00mg/dl Indirect Bilirubin 0.4mg/dl Aspartate Amino Transf (AST/SGOT) 22IU/L Alanine Aminotransferase (ALT/SGPT) 20IU/L Alkaline Phosphatase 108IU/L Troponin I < 0.012ng/ml B-Type Natriuretic Peptide 107PG/ML Total Protein 8.5g/dl Albumin 4.1g/dl Globulin 4.40g/dl Albumin/Globulin Ratio 0.93 Current Medications Medications (Trade) Dose Ordered Sig/Domonique Route PRN Reason Start Time Stop Time Status Last Admin Dose Admin Aspirin (Aspirin) 325 mg ONCE STAT PO 01/30/17 00:04 01/30/17 00:12 DC 01/30/17 00:24 IV Flush 10 ml 10 ml STK-MED ONCE .ROUTE 01/30/17 01:32 01/30/17 01:33 DC Sodium Chloride 100 ml @ ud STK-MED ONCE .ROUTE 01/30/17 01:32 01/30/17 01:33 DC Iohexol (Omnipaque) 100 ml @ STK-MED ONCE .ROUTE 01/30/17 01:32 01/30/17 01:33 DC (RADHA IZQUIERDO MD) Procedures/MDM IV line was established patient was placed on cardiac rn rhythm strip revealed a sinus rhythm at about 90 bpm with upright P and T waves. Patient was afebrile. Patient was given aspirin 325 mg p.o. for cardioprotective measures. EKG #1 was performed, read by me revealed a normal sinus rhythm at 91 bpm, normal axis, narrow QRS complex, no concerning ST elevations or depressions noted. CBC was normal, electrolytes normal, liver function tests normal, troponin was negative. BNP negative. CT angiogram of the chest was ordered to rule out pulmonary embolism although patient does not fit in the machine and will require admission and continued management, observation, and possible VQ scan imaging. EKG #2 performed about 2 hours after the first 1, read by me reveals a normal sinus rhythm at 80 bpm, normal axis, narrow QRS complex, no concerning ST elevations or depressions noted. (RADHA IZQUIERDO MD) Departure Diagnosis: Primary Impression: Chest pain Chest pain type: unspecified Qualified Code: R07.9 - Chest pain, unspecified type Condition: MELL Mancini Jan 29, 2017 23:37 RADHA IZQUIERDO MD Jan 30, 2017 02:55 Mean Corpuscular Volume 76.5fl Mean Corpuscular Hemoglobin 22.6pg Mean Corpuscular Hemoglobin Concent 29.5g/dl Red Cell Distribution Width 16.8% Platelet Count 08746^3/UL Mean Platelet Volume 9.7fl Neutrophils % 75.8% Lymphocytes % 17.3% Monocytes % 5.1% Eosinophils % 1.1% Basophils % 0.3% Nucleated Red Blood Cells % 0.0/100WBC Neutrophils # (Manual) 910^3/ul Lymphocytes # 2.010^3/ul Monocytes # 0.610^3/ul Eosinophils # 0.110^3/ul Basophils # 0.010^3/ul Nucleated Red Blood Cells # 0.010^3/ul Prothrombin Time 13.9Sec Prothrombin Time Ratio 1.1 INR International Normalized Ratio 1.07 Activated Partial Thromboplast Time 29.7Sec D-Dimer 1050.59ng/ml D-Dimer Comment Sodium Level 141mmol/L Potassium Level 4.4mmol/L Chloride Level 97mmol/L Carbon Dioxide Level 28mmol/L Anion Gap 20 Blood Urea Nitrogen 17mg/dl Creatinine 0.94mg/dl Glucose Level 121mg/dl Calcium Level 9.3mg/dl Total Bilirubin 0.4mg/dl Direct Bilirubin 0.00mg/dl Indirect Bilirubin 0.4mg/dl Aspartate Amino Transf (AST/SGOT) 22IU/L Alanine Aminotransferase (ALT/SGPT) 20IU/L Alkaline Phosphatase 108IU/L Troponin I < 0.012ng/ml B-Type Natriuretic Peptide 107PG/ML Total Protein 8.5g/dl Albumin 4.1g/dl Globulin 4.40g/dl Albumin/Globulin Ratio 0.93 Current Medications Medications (Trade) Dose Ordered Sig/Domon[place] Route PRN Reason Start Time Stop Time Status Last Admin Dose Admin Aspirin (Aspirin) 325 mg ONCE STAT PO 01/30/17 00:04 01/30/17 00:12 DC 01/30/17 00:24 IV Flush 10 ml 10 ml STK-MED ONCE .ROUTE 01/30/17 01:32 01/30/17 01:33 DC Sodium Chloride 100 ml @ ud STK-MED ONCE .ROUTE 01/30/17 01:32 01/30/17 01:33 DC Iohexol (Omnipaque) 100 ml @ ud STK-MED ONCE .ROUTE 01/30/17 01:32 01/30/17 01:33 DC (DANIELLA,MELL) Procedures/MDM IV line was established patient was placed on cardiac rn rhythm strip revealed a sinus rhythm at about 90 bpm with upright P and T waves. Patient was afebrile. Patient was given aspirin 325 mg p.o. for cardioprotective measures. EKG #1 was performed, read by me revealed a normal sinus rhythm at 91 bpm, normal axis, narrow QRS complex, no concerning ST elevations or depressions noted. CBC was normal, electrolytes normal, liver function tests normal, troponin was negative. BNP negative. CT angiogram of the chest was ordered to rule out pulmonary embolism although patient does not fit in the machine and will require admission and continued management, observation, and possible VQ scan imaging. EKG #2 performed about 2 hours after the first 1, read by me reveals a normal sinus rhythm at 80 bpm, normal axis, narrow QRS complex, no concerning ST elevations or depressions noted. (RADHA IZQUIERDO MD) Departure Diagnosis: Primary Impression: Chest pain Chest pain type: unspecified Qualified Code: R07.9 - Chest pain, unspecified type Condition: MELL Mancini Jan 29, 2017 23:37 RADHA IZQUIERDO MD Jan 30, 2017 02:55
[2017-01-30] VITALS (10 sets, daily range): BP systolic 96–128; BP diastolic 56–82; PULSE 79–92; RESP 17–22; Ht 162.6 cm; Wt 206.0 kg
[2017-01-30] MEDS ORDERED: ASPIRIN 325 MG TAB PO STA (00:04)
[2017-01-30 01:00] LABS: BASOPHILS % 0.3 % (0.0-2.0); EOSINOPHILS # 0.1 10^3/ul (0.0-0.5); EOSINOPHILS % 1.1 % (0.0-7.0); HEMATOCRIT 34.9 % (37.0-47.0); HEMOGLOBIN 10.3 g/dl (12.0-16.0); LYMPHOCYTES % 17.3 % (15.0-51.0); MEAN CORPUSCULAR HEMOGLOBIN 22.6 pg (29.0-33.0); MEAN CORPUSCULAR HGB CONC 29.5 g/dl (32.0-37.0); MEAN CORPUSCULAR VOLUME 76.5 fl (82.0-101.0); MEAN PLATELET VOLUME 9.7 fl (7.4-10.4); MONOCYTE # 0.6 10^3/ul (0.3-0.9); MONOCYTES % 5.1 % (0.0-11.0); NEUTROPHILS % 75.8 % (39.0-77.0); PLATELET COUNT 463 10^3/UL (140-415); RED BLOOD COUNT 4.56 10^6/ul (4.20-5.40); RED CELL DISTRIBUTION WIDTH 16.8 % (11.5-14.5); WHITE BLOOD COUNT 11.8 10^3/ul (4.8-10.8)
[2017-01-30 01:14] LABS: INR 1.07; PROTIME 13.9 Sec (12.2-14.2); PT RATIO 1.1
[2017-01-30 01:15] LABS: PARTIAL THROMBOPLASTIN TIME 29.7 Sec (25.0-35.0)
[2017-01-30 01:17] LABS: ALANINE AMINOTRANSFERASE 20 IU/L (13-69); ALBUMIN 4.1 g/dl (3.3-4.9); ALBUMIN/GLOBULIN RATIO 0.93; ALKALINE PHOSPHATASE 108 IU/L (42-121); ANION GAP 20 (8-16); ASPARTATE AMINO TRANSFERASE 22 IU/L (15-46); BILIRUBIN,INDIRECT 0.4 mg/dl (0-1.1); BILIRUBIN,TOTAL 0.4 mg/dl (0.2-1.3); BLOOD UREA NITROGEN 17 mg/dl (7-20); CALCIUM 9.3 mg/dl (8.4-10.2); CARBON DIOXIDE 28 mmol/L (21-31); CHLORIDE 97 mmol/L (97-110); CREATININE 0.94 mg/dl (0.44-1.00); GLUCOSE 121 mg/dl (70-220); POTASSIUM 4.4 mmol/L (3.5-5.1); SODIUM 141 mmol/L (135-144); TOTAL PROTEIN 8.5 g/dl (6.1-8.1)
[2017-01-30 01:25] LABS: B-TYPE NATRIURETIC PEPTIDE 107 PG/ML (0-125)
[2017-01-30 01:29] LABS: TROPONIN-I < 0.012 ng/ml (0.00-0.12)
[2017-01-30] MEDS ORDERED: IOHEXOL 100 ML ONE (01:32)
[2017-01-30] MEDS ORDERED: SOD CHLORIDE 0.9% 100 ML ONE (01:32)
[2017-01-30 02:10] LABS: D-DIMER 1050.59 ng/ml (<460)
--- NOTE | 2017-01-30 02:49 | RADRPT ---
PROCEDURE: XR Chest. CLINICAL INDICATION: Infiltrate TECHNIQUE: AP Portable chest. COMPARISON: 06/29/2016 FINDINGS: There is moderate to marked cardiomegaly. The lungs are clear. The osseous structures are unremark able. IMPRESSION: No acute findings. RPTAT: HIKT .Sabino Irene MD, Date Time Electronically viewed and signed by .Sabino Irene MD, on 01/30/2017 02:49 .T/
[2017-01-30] MEDS ORDERED: GLUCOSE GEL 15 GRAM TUBE BUCCAL PRN (05:00)
[2017-01-30] MEDS ORDERED: GLUCAGON 1 MG INJ IM PRN (05:00)
[2017-01-30] MEDS ORDERED: ACETAMINOPHEN 325 MG TAB PO PRN (05:00)
[2017-01-30] MEDS ORDERED: ALBUTEROL/IPRATROPIUM (NEB) 3 ML AMP HHN PRN (05:00)
[2017-01-30] MEDS ORDERED: NACL 0.9% 3 ML SYG IV SCH (05:00)
[2017-01-30] MEDS ORDERED: DEXTROSE 50% 50 ML SYRINGE IV PRN ×2 (05:00)
[2017-01-30] MEDS ORDERED: morphine 4 MG/ML VIAL IV PRN (05:00)
[2017-01-30] MEDS ORDERED: ALPRAZOLAM 1 MG TAB PO PRN (05:00)
[2017-01-30] MEDS ORDERED: GLUCOSE GEL 15 GRAM TUBE PO PRN ×2 (05:00)
[2017-01-30] MEDS ORDERED: LORAZEPAM 0.5 MG TAB PO PRN (05:00)
[2017-01-30] MEDS ORDERED: NITROGLYCERIN (SL) 0.4 MG TAB SL PRN (05:30)
[2017-01-30] MEDS: HYDROCODONE/APAP (10/325) TAB PO PRN ×4 (06:20→22:44)
[2017-01-30 07:24] LABS: CREATINE KINASE 34 IU/L (23-200)
--- NOTE | 2017-01-30 07:29 | HP ---
Date/Time of Note Date/Time of Note DATE: 01/30/17 TIME: 07:15 Assessment/Plan VTE Prophylaxis VTE Prophylaxis Intervention: heparin Lines/Catheters IV Catheter Type (from Nrs): Peripheral IV Assessment/Plan Assessment/Plan 1. Shortness of breath -Given her risk factor as well as history, need to rule out PE. Due to her weight, will be able to do CT pulmonary angiogram. Will order V/Q scan, lower extremity venous study to evaluate for a DVT and a d-dimer. -Symptom could be from a reactive airway disease. Patient also reported history of wheezing for which she has been using albuterol intermittently in the past. On exam she does have audible wheeze. Will treat with supplemental oxygen, bronchodilators and steroid. 2. Chest pain, need to rule out ACS -EKG with no ST-T wave abnormalities and first troponin is negative -will trend troponin and obtain a 2D echo. V/Q scan as mentioned above -Cardiology consult as needed 3. History of PE 9 years ago: Status post treatment with resolution (per patient) 4. History of depression/anxiety: Patient appears comfortable and denies feeling anxious or depressed -As needed antianxiety/depression medication 5. Morbid obesity with a BMI of almost 48 -Weight reduction advised. HPI/ROS Admit Date/Time Admit Date/Time Jan 30, 2017 at 02:47 Hx of Present Illness This is a 46-year-old morbidly obese female with a history of PE 9 years ago, depression/anxiety, recurrent lower extremity cellulitis. Patient presented to the ER complaining of shortness of breath and chest pain which started yesterday. Symptoms are worse with exertion. Chest pain mainly occurs when taking a deep breath. Denied fever/chills, nausea/vomiting, palpitation, lightheadedness. When she presented to the ER, blood pressure 114/82, heart rate 99, respiratory 22, temp 100.1, O2 sat 94% on room air. Labs shows WBC 11.8, hemoglobin 10.3 with MCV of 76. Chest x-ray was no acute findings. . PMH/Family/Social Past Medical History Medical History: other (PE, depression, anxiety, morbid obesity) Social History Alcohol Use: none Smoking Status: Never smoker Drug Use: none Exam/Review of Systems Vital Signs Vitals Vital Signs Date Time Temp Pulse Resp B/P Pulse Ox O2 Delivery O2 Flow Rate FiO2 8/20/17 05:15 97.6 91 20 128/81 96 Nasal Cannula 2.0 Exam Constitutional: other (Morbidly obese female sitting up on the bed and appears comfortable. She is able speak in full sentences) Head: atraumatic, normocephalic Respiratory: wheezing Cardiovascular: other (Tachycardic with regular rhythm) Gastrointestinal: other (Morbidly obese), soft Musculoskeletal: other (Left leg was well-circumscribed erythematous area with overlying faint silvery scale, likely psoriasis. There was no call for tenderness on both legs) Labs Result Diagram: 01/30/17 0028 01/30/17 0028 Medications Medications Current Medications Lorazepam (Ativan) 0.5 mg Q8H PRN PO ANXIETY; Start 01/30/17 at 05:00 Ondansetron HCl (Zofran Inj) 4 mg Q6H PRN IV NAUSEA AND/OR VOMITING; Start at 05:00 Acetaminophen (Tylenol Tab) 650 mg Q6H PRN PO PAIN LEVEL 1-3 OR FEVER; Start at 05:00 Enoxaparin Sodium (Lovenox) 40 mg DAILY SC ; Start 01/30/17 at 09:00 Diagnostic Test (Pha) (Accu-Chek) 1 ea 02 XX ; Start 01/31/17 at 02:00 Alprazolam (Xanax) 1 mg QHS PRN PO ANXIETY; Start 01/30/17 at 05:00 Benazepril HCl (Lotensin) 40 mg DAILY PO ; Start 01/30/17 at 09:00 Docusate Sodium (Colace) 100 mg BID PO ; Start 01/30/17 at 09:00 Gabapentin (Neurontin) 100 mg BID PO ; Start 01/30/17 at 09:00 Acetaminophen/ Hydrocodone Bitart ([place] (10/325)) 1 tab Q6H PRN PO PAIN Last administered on 01/30/17t 06:20; Admin Dose 1 TAB; Start 01/30/17 at 05:00 Pregabalin (Lyrica) 75 mg BID PO ; Start 01/30/17 at 09:00 Miscellaneous Information 1 ea NOTE XX ; Start 01/30/17 at 05:00 Glucose (Glutose) 15 gm Q15M PRN PO DECREASED GLUCOSE; Start 01/30/17 at 05:00 Glucose (Glutose) 22.5 gm Q15M PRN PO DECREASED GLUCOSE; Start 01/30/17 at 05: 00 Dextrose (D50w Syringe) 25 ml Q15M PRN IV DECREASED GLUCOSE; Start 01/30/17 at 05:00 Dextrose (D50w Syringe) 50 ml Q15M PRN IV DECREASED GLUCOSE; Start 01/30/17 at 05:00 Glucagon (Glucagen) 1 mg Q15M PRN IM DECREASED GLUCOSE; Start 01/30/17 at 05:00 Glucose (Glutose) 15 gm Q15M PRN BUCCAL DECREASED GLUCOSE; Start 01/30/17 at 05 :00 Nitroglycerin (Nitroglycerin (Sl Tab) 0.4 Mg) 1 tab [id number] PRN SL CHEST PAIN ; Start 01/30/17 at 05:30 LENCHO SÁNCHEZ MD Jan 30, 2017 07:26
[2017-01-30 07:39] LABS: CK-MB < 0.22 ng/ml (0.0-2.4); TROPONIN-I < 0.012 ng/ml (0.00-0.12)
[2017-01-30] MEDS: metFORMIN 500 MG TAB PO SCH (07:55)
[2017-01-30] MEDS: INSULIN ASPART [NOVOLOG] 3 ML PEN SC SCH ×4 (07:55→21:00)
[2017-01-30] MEDS: PREGABALIN 75 MG CAP PO SCH ×2 (08:47→21:00)
[2017-01-30] MEDS: GABAPENTIN 100 MG CAP PO SCH ×2 (08:48→21:00)
[2017-01-30] MEDS: DOCUSATE SODIUM 100 MG CAP PO SCH ×2 (08:48→21:00)
[2017-01-30] MEDS: BENAZEPRIL 40 MG TAB PO SCH (08:52)
[2017-01-30] MEDS: ENOXAPARIN 40 MG/0.4 ML SYG SC SCH (08:52)
[2017-01-30 11:44] LABS: CREATINE KINASE 44 IU/L (23-200)
[2017-01-30 12:00] LABS: CK-MB < 0.22 ng/ml (0.0-2.4); TROPONIN-I < 0.012 ng/ml (0.00-0.12)
[2017-01-30] MEDS: ONDANSETRON 4 MG INJ IV PRN (21:01)
[2017-01-30] MEDS: ACCU-CHEK XX SCH (23:32)
[2017-01-31] VITALS (12 sets, daily range): BP systolic 101–148; BP diastolic 55–76; PULSE 70–92; RESP 16–22
[2017-01-31 06:42] LABS: BASOPHIL # 0.1 10^3/ul (0.0-0.1); BASOPHILS % 0.5 % (0.0-2.0); EOSINOPHILS # 0.2 10^3/ul (0.0-0.5); EOSINOPHILS % 1.5 % (0.0-7.0); HEMATOCRIT 35.4 % (37.0-47.0); HEMOGLOBIN 10.3 g/dl (12.0-16.0); LYMPHOCYTES # 2.5 10^3/ul (0.8-2.9); LYMPHOCYTES % 19.1 % (15.0-51.0); MEAN CORPUSCULAR HEMOGLOBIN 22.9 pg (29.0-33.0); MEAN CORPUSCULAR HGB CONC 29.1 g/dl (32.0-37.0); MEAN CORPUSCULAR VOLUME 78.7 fl (82.0-101.0); MEAN PLATELET VOLUME 9.7 fl (7.4-10.4); MONOCYTE # 0.9 10^3/ul (0.3-0.9); MONOCYTES % 6.5 % (0.0-11.0); NEUTROPHILS % 71.7 % (39.0-77.0); NUCLEATED RED BLOOD CELLS% 0.2 /100WBC (0.0-0.0); PLATELET COUNT 509 10^3/UL (140-415)
[2017-01-31 07:14] LABS: ALBUMIN/GLOBULIN RATIO 0.95; BILIRUBIN,INDIRECT 0.3 mg/dl (0-1.1); BILIRUBIN,TOTAL 0.3 mg/dl (0.2-1.3); CALCIUM 9.5 mg/dl (8.4-10.2); CHOL/HDL RATIO 3.4 RATIO; CREATININE 1.22 mg/dl (0.44-1.00); MAGNESIUM 2.2 mg/dl (1.7-2.5); POTASSIUM 4.4 mmol/L (3.5-5.1); TOTAL PROTEIN 8.2 g/dl (6.1-8.1)
[2017-01-31] MEDS: ONDANSETRON 4 MG INJ IV PRN ×2 (07:38→22:58)
[2017-01-31] MEDS: metFORMIN 500 MG TAB PO SCH ×2 (07:39→08:07)
[2017-01-31] MEDS: INSULIN ASPART [NOVOLOG] 3 ML PEN SC SCH ×4 (07:45→20:36)
[2017-01-31] MEDS: ENOXAPARIN 40 MG/0.4 ML SYG SC SCH (08:06)
[2017-01-31] MEDS: PREGABALIN 75 MG CAP PO SCH (08:08)
[2017-01-31] MEDS: GABAPENTIN 100 MG CAP PO SCH ×2 (08:08→20:37)
[2017-01-31] MEDS: BENAZEPRIL 40 MG TAB PO SCH (08:08)
[2017-01-31] MEDS: DOCUSATE SODIUM 100 MG CAP PO SCH ×3 (08:08→20:40)
[2017-01-31] MEDS ORDERED: ACET/BUTAL/CAFF TAB PO PRN (11:00)
--- NOTE | 2017-01-31 13:09 | RADRPT ---
Echocardiogram Report Patient Name: ALISE ARROYO Gender: Female Date: 1970 Study Date: 31-Jan-2017 Sales Account Leader: Isabel Sanabria [facility] Location: 522 Ref. Physician: LENCHO SÁNCHEZ Quality: Adequate Procedures: Transthoracic echocardiogram with complete 2D, M-Mode, and doppler examination. Indications: Chest Pain. Shortness of breath. 2D/M Mode Doppler Measurement Value Normal Ranges Measurement Value Normal Ranges LVIDd 2D 4.1 3.5 - 5.6 cm LVOT Peak [place] 1.5 m/sec LVIDs 2D 2.0 2.1 - 4.1 cm LVOT Peak PG 8.4 mmHg LVPWd 2D 1.4 0.6 - 1.1 cm MV E Peak [place] 0.7 m/sec IVSd 2D 1.5 0.6 - 1.1 cm MV A Peak [place] 0.9 m/sec AoR Diam 2D 2.4 2.0 - 3.7 cm MV E/A 0.7 EDV 2D 73.7 cm3 MV Decel Time 249 msec ESV 2D 7.[address] [place] 3 LA Dimen 2D 3.7 2.3 - 4.0 cm MV E/A 0.7 TR Peak [place] 1.3 m/sec TR Peak PG 6.9 mmHg RVSP 22.0 mmHg Findings Left Ventricle: Normal left ventricular systolic function. Normal left ventricular cavity size. Moderate concentric left ventricular hypertrophy. Ejection fraction is visually estimated at 55 %. Tissue Doppler/Mitral Doppler indices are consistent with impaired relaxation (Stage I diastolic dysfunction). Right Ventricle: Normal right ventricular size. Normal right ventricular systolic function. Left Atrium: The left atrium is normal in size. Right Atrium: The right atrium is normal in size. Mitral Valve: Normal appearance of the mitral valve. Mild mitral annular calcification. Trace mitral regurgitation. Aortic Valve: Normal appearance of the aortic valve. No significant aortic stenosis or insufficiency. Tricuspid Valve: Normal appearance of the tricuspid valve. Estimated peak PA systolic pressure 22 mmHg. There is trace tricuspid regurgitation. Pulmonic Valve: Normal pulmonic valve appearance. Pericardium: Moderate pericardial effusion. Aorta: Normal aortic root. IVC: Dilated IVC without respiratory collapse consistent with elevated right atrial pressure. Conclusions 1.Normal left ventricular systolic function. Normal left ventricular cavity size. Moderate concentric left ventricular hypertrophy. Ejection fraction is visually estimated at 55 %. Tissue Doppler/Mitral Doppler indices are consistent with impaired relaxation (Stage I diastolic dysfunction). 2.Normal appearance of the mitral valve. Mild mitral annular calcification. Trace mitral regurgitation. 3.Normal appearance of the aortic valve. No significant aortic stenosis or insufficiency. 4.Normal appearance of the tricuspid valve. Estimated peak PA systolic pressure 22 mmHg. There is trace tricuspid regurgitation. 5.Normal pulmonic valve appearance. 6.Moderate pericardial effusion. Electronically Signed By: Maycol Schwab 31-Jan-2017 13:09:00 -0700 Patient Name: ALISE ARROYO Study Date: 31-Jan-2017 [id number]
--- NOTE | 2017-01-31 13:40 | CONS ---
Date/Time of Note Date/Time of Note DATE: 01/31/17 TIME: 13:37 Assessment/Plan Assessment/Plan Additional Assessment/Plan Large PEF SOB Atypical chest pain hx of PE Obesity -dr boucher called for pericardial window -atypical chest pain and unlikey ACS -vensou dopplers ordered -echo reviewed Consultation Date/Type/Reason Admit Date/Time Jan 30, 2017 at 02:47 Hx of Present Illness This is a 46-year-old morbidly obese female with a history of PE 9 years ago, depression/anxiety, recurrent lower extremity cellulitis. Patient presented to the ER complaining of shortness of breath and chest pain which started yesterday. Symptoms are worse with exertion. Chest pain mainly occurs when taking a deep breath. Denied fever/chills, nausea/vomiting, palpitation, lightheadedness. She has no hx of cancer, no overt chf and has some orthopnea but not hypotensive Past Medical History Medical History: other (PE, depression, anxiety, morbid obesity) Social History Alcohol Use: none Smoking Status: Never smoker Drug Use: none Exam/Review of Systems Vital Signs Vitals Vital Signs Date Time Temp Pulse Resp B/P Pulse Ox O2 Delivery O2 Flow Rate FiO2 01/31/17 12:29 77 01/31/17 11:38 97.9 20 113/57 97 01/31/17 07:50 Nasal Cannula 2.0 Intake and Output 01/30/17 01/30/17 01/31/17 15:00 23:00 07:00 Intake Total 950 ml 500 ml Balance 950 ml 500 ml Results Result Diagram: 01/31/17 0538 01/31/17 0538 Results 24 hrs Laboratory Tests Test 01/30/17 17:29 01/30/17 21:06 01/31/17 05:38 01/31/17 07:42 Bedside Glucose 109 122 126 White Blood Count 13.0 H Red Blood Count 4.50 Hemoglobin 10.3 L Hematocrit 35.4 L Mean Corpuscular Volume 78.7 L Mean Corpuscular Hemoglobin 22.9 L Mean Corpuscular Hemoglobin Concent 29.1 L Red Cell Distribution Width 17.0 H Platelet Count 509 H Mean Platelet Volume 9.7 Neutrophils % 71.7 Lymphocytes % 19.1 Monocytes % 6.5 Eosinophils % 1.5 Basophils % 0.5 Nucleated Red Blood Cells % 0.2 H Neutrophils # (Manual) 9 H Lymphocytes # 2.5 Monocytes # 0.9 Eosinophils # 0.2 Basophils # 0.1 Nucleated Red Blood Cells # 0.0 Sodium Level 137 Potassium Level 4.4 Chloride Level 97 Carbon Dioxide Level 28 Anion Gap 16 Blood Urea Nitrogen 27 H Creatinine 1.22 H Glucose Level 114 Hemoglobin A1c 6.2 H Calcium Level 9.5 Magnesium Level 2.2 Total Bilirubin 0.3 Direct Bilirubin 0.00 Indirect Bilirubin 0.3 Aspartate Amino Transf (AST/SGOT) 16 Alanine Aminotransferase (ALT/SGPT) 28 Alkaline Phosphatase 94 Total Protein 8.2 H Albumin 4.0 Globulin 4.20 H Albumin/Globulin Ratio 0.95 Triglycerides Level 90 Cholesterol Level 125 LDL Cholesterol, Calculated 71 HDL Cholesterol 36 Cholesterol/HDL Ratio 3.4 Test 01/31/17 11:04 Bedside Glucose 109 Medications Medications Current Medications Lorazepam (Ativan) 0.5 mg Q8H PRN PO ANXIETY; Start 01/30/17 at 05:00 Ondansetron HCl (Zofran Inj) 4 mg Q6H PRN IV NAUSEA AND/OR VOMITING Last administered on 01/31/17 07:38; Admin Dose 4 MG; Start 01/30/17 at 05:00 Acetaminophen (Tylenol Tab) 650 mg Q6H PRN PO PAIN LEVEL 1-3 OR FEVER Last administered on 01/30/17 12:04; Admin Dose 650 MG; Start 01/30/17 at 05:00 Diagnostic Test (Pha) (Accu-Chek) 1 ea 02 XX ; Start 01/31/17 at 02:00 Alprazolam (Xanax) 1 mg QHS PRN PO ANXIETY; Start 01/30/17 at 05:00 Benazepril HCl (Lotensin) 40 mg DAILY PO Last administered on 01/31/17 08:08; Admin Dose 40 MG; Start 01/30/17 at 09:00; Status Future Hold Docusate Sodium (Colace) 100 mg BID PO ; Start 01/30/17 at 09:00 Gabapentin (Neurontin) 100 mg BID PO ; Start 01/30/17 at 09:00 Acetaminophen/ Hydrocodone Bitart ([place] (10/325)) 1 tab Q6H PRN PO PAIN Last administered on 01/30/17 22:44; Admin Dose 1 TAB; Start 01/30/17 at 05:00 Pregabalin (Lyrica) 75 mg BID PO ; Start 01/30/17 at 09:00 Miscellaneous Information 1 ea NOTE XX ; Start 01/30/17 at 05:00 Glucose (Glutose) 15 gm Q15M PRN PO DECREASED GLUCOSE; Start 01/30/17 at 05:00 Glucose (Glutose) 22.5 gm Q15M PRN PO DECREASED GLUCOSE; Start 01/30/17 at 05: 00 Dextrose (D50w Syringe) 25 ml Q15M PRN IV DECREASED GLUCOSE; Start 01/30/17 at 05:00 Dextrose (D50w Syringe) 50 ml Q15M PRN IV DECREASED GLUCOSE; Start 01/30/17 at 05:00 Glucagon (Glucagen) 1 mg Q15M PRN IM DECREASED GLUCOSE; Start 01/30/17 at 05:00 Glucose (Glutose) 15 gm Q15M PRN BUCCAL DECREASED GLUCOSE; Start 01/30/17 at 05 :00 Nitroglycerin (Nitroglycerin (Sl Tab) 0.4 Mg) 1 tab [id number] PRN SL CHEST PAIN ; Start 01/30/17 at 05:30 Metoprolol Tartrate (Lopressor) 25 mg BID PO ; Start 01/31/17 at 21:00 KOLBY KING MD Jan 31, 2017 13:40
--- NOTE | 2017-01-31 14:24 | PN ---
Date/Time of Note Date/Time of Note DATE: 01/31/17 TIME: 14:22 Assessment/Plan VTE Prophylaxis VTE Prophylaxis Intervention: SCD's Lines/Catheters IV [facility]from [facility] [place] Urinary Cath still in place: No Assessment/Plan Chief Complaint/Hosp Course 1. Chest pain. Serial troponins negative. 2D echocardiogram showing moderate sized pericardial effusion. This could be the reason for her underlying chest pain. Cardiac surgery has been consulted. Cardiology following the patient. 2. Moderate pericardial effusion. A cardiac surgery has been consulted. Probably needs surgical intervention. 3. Acute respiratory failure. Hypoxic. The patient has known history of pulmonary embolism. The patient not a candidate for a CT angiogram because of the heavy weight. VQ scan has been ordered. The patient may need to be started on therapeutic anticoagulation because of high suspicion for PE provided the patient's elevated d-dimer also. However, because of underlying pericardial effusion and the possible need for surgical intervention the patient 's anticoagulation will be put on hold. B/L LE venous Doppler ordered. 4. Essential hypertension. Continue antihypertensives. However, will hold the LAURY inhibitors because of worsening renal function. We will switch the patient to beta-blockers. 5. Depression. Resume antidepressants. 6. Type 2 diabetes mellitus. Will hold the metformin because of worsening renal function. Continue sliding scale insulin. 7. Acute kidney injury. Will hold her nephrotoxic medications. 8. Obesity. BMI of 46.3 kg/m. Weight reduction advised. 9. Fluids, electrolytes, and nutrition. Carbohydrate controlled diet. 10. DVT prophylaxis. Bilateral sequential compression devices. Hold anticoagulation because of possible surgical intervention. 11. Plan. Continue current management. Hold anticoagulation. Hold nephrotoxic medications. Await further recommendations from consultants. Obtain VQ scan, brain CT, and bilateral lower extremity venous Doppler study. Case discussed with Dr. Hernandez. Problems: Subjective 24 Hr Interval Summary Free Text/Dictation Complains of headache and dizziness. Complains of dyspnea with minimal exertion. Exam/Review of Systems Vital Signs Vitals Vital Signs Date Time Temp Pulse Resp B/P Pulse Ox O2 Delivery O2 Flow Rate FiO2 01/31/17 12:29 77 01/31/17 11:38 97.9 20 113/57 97 01/31/17 07:50 Nasal Cannula 2.0 Intake and Output 01/30/17 01/30/17 01/31/17 14:59 22:59 06:59 Intake Total 950 ml 500 ml Balance 950 ml 500 ml Exam General: Morbidly obese 46 year-old female lying in bed in no apparent distress. HEENT: Normocephalic, atraumatic. Eyes: Anicteric sclerae, conjunctivae clear. ENT: Nasal septum midline, oral mucosa moist. Neck supple, no JVD noticed. Respiratory: Bilaterally diminished breath sounds. No use of accessory muscles of respiration. No adventitious breath sounds. Cardiovascular: S1, S2 heard. Distant heart sounds Abdomen: Soft, nontender, and nondistended. Bowel sounds positive in all 4 quadrants. Genitourinary: Deferred. Extremities: No cyanosis, no clubbing, no edema. Peripheral pulses palpable. Neurologic: Cranial nerves II through XII grossly intact. The patient is awake, alert, and oriented. Skin: Normal skin turgor. No skin rashes. Results Result Diagram: 01/31/17 0538 01/31/17 0538 Results 24 hrs Laboratory Tests Test 01/30/17 17:29 01/30/17 21:06 01/31/17 05:38 01/31/17 07:42 Bedside Glucose 109 122 126 White Blood Count 13.0 H Red Blood Count 4.50 Hemoglobin 10.3 L Hematocrit 35.4 L Mean Corpuscular Volume 78.7 L Mean Corpuscular Hemoglobin 22.9 L Mean Corpuscular Hemoglobin Concent 29.1 L Red Cell Distribution Width 17.0 H Platelet Count 509 H Mean Platelet Volume 9.7 Neutrophils % 71.7 Lymphocytes % 19.1 Monocytes % 6.5 Eosinophils % 1.5 Basophils % 0.5 Nucleated Red Blood Cells % 0.2 H Neutrophils # (Manual) 9 H Lymphocytes # 2.5 Monocytes # 0.9 Eosinophils # 0.2 Basophils # 0.1 Nucleated Red Blood Cells # 0.0 Sodium Level 137 Potassium Level 4.4 Chloride Level 97 Carbon Dioxide Level 28 Anion Gap 16 Blood Urea Nitrogen 27 H Creatinine 1.22 H Glucose Level 114 Hemoglobin A1c 6.2 H Calcium Level 9.5 Magnesium Level 2.2 Total Bilirubin 0.3 Direct Bilirubin 0.00 Indirect Bilirubin 0.3 Aspartate Amino Transf (AST/SGOT) 16 Alanine Aminotransferase (ALT/SGPT) 28 Alkaline Phosphatase 94 Total Protein 8.2 H Albumin 4.0 Globulin 4.20 H Albumin/Globulin Ratio 0.95 Triglycerides Level 90 Cholesterol Level 125 LDL Cholesterol, Calculated 71 HDL Cholesterol 36 Cholesterol/HDL Ratio 3.4 Test 01/31/17 11:04 Bedside Glucose 109 Medications Medications Current Medications Lorazepam (Ativan) 0.5 mg Q8H PRN PO ANXIETY; Start 01/30/17 at 05:00 Ondansetron HCl (Zofran Inj) 4 mg Q6H PRN IV NAUSEA AND/OR VOMITING Last administered on 01/31/17 07:38; Admin Dose 4 MG; Start 01/30/17 at 05:00 Acetaminophen (Tylenol Tab) 650 mg Q6H PRN PO PAIN LEVEL 1-3 OR FEVER Last administered on 01/30/17 12:04; Admin Dose 650 MG; Start 01/30/17 at 05:00 Diagnostic Test (Pha) (Accu-Chek) 1 ea 02 XX ; Start 01/31/17 at 02:00 Alprazolam (Xanax) 1 mg QHS PRN PO ANXIETY; Start 01/30/17 at 05:00 Benazepril HCl (Lotensin) 40 mg DAILY PO Last administered on 01/31/17 08:08; Admin Dose 40 MG; Start 01/30/17 at 09:00; Status Future Hold Docusate Sodium (Colace) 100 mg BID PO ; Start 01/30/17 at 09:00 Gabapentin (Neurontin) 100 mg BID PO ; Start 01/30/17 at 09:00 Acetaminophen/ Hydrocodone Bitart ([place] (10/325)) 1 tab Q6H PRN PO PAIN Last administered on 01/30/17 22:44; Admin Dose 1 TAB; Start 01/30/17 at 05:00 Pregabalin (Lyrica) 75 mg BID PO ; Start 01/30/17 at 09:00 Miscellaneous Information 1 ea NOTE XX ; Start 01/30/17 at 05:00 Glucose (Glutose) 15 gm Q15M PRN PO DECREASED GLUCOSE; Start 01/30/17 at 05:00 Glucose (Glutose) 22.5 gm Q15M PRN PO DECREASED GLUCOSE; Start 01/30/17 at 05: 00 Dextrose (D50w Syringe) 25 ml Q15M PRN IV DECREASED GLUCOSE; Start 01/30/17 at 05:00 Dextrose (D50w Syringe) 50 ml Q15M PRN IV DECREASED GLUCOSE; Start 01/30/17 at 05:00 Glucagon (Glucagen) 1 mg Q15M PRN IM DECREASED GLUCOSE; Start 01/30/17 at 05:00 Glucose (Glutose) 15 gm Q15M PRN BUCCAL DECREASED GLUCOSE; Start 01/30/17 at 05 :00 Nitroglycerin (Nitroglycerin (Sl Tab) 0.4 Mg) 1 tab [id number] PRN SL CHEST PAIN ; Start 01/30/17 at 05:30 Metoprolol Tartrate (Lopressor) 25 mg BID PO ; Start 01/31/17 at 21:00 SOLITARIO LAMBERT NP Jan 31, 2017 14:24
--- NOTE | 2017-01-31 15:35 | RADRPT ---
PROCEDURE: US Lower extremity Venous. CLINICAL INDICATION: Bilateral lower extremity edema TECHNIQUE: Multiple sonographic images of the bilateral lower extremity deep venous system was obt ained utilizing grayscale, color-flow, compressive sonography and doppler imaging with augmentation. The images were reviewed on a PACS workstation. COMPARISON: 06/23/2016 FINDINGS: The study is limited due to the patient's body habitus. There is normal compressibility and flow within the bilateral common femoral, femoral , posterior ti bial and popliteal veins. RPTAT: AA IMPRESSION: No sonographic evidence for deep venous thrombosis. .Medardo Portillo MD, MD Date Time Electronically viewed and signed by .Medardo Portillo MD, on 01/31/2017 15:34 .S/
[2017-01-31 15:41] LABS: IRON 18 ug/dl (35-150)
[2017-01-31 15:50] LABS: TOTAL IRON BINDING CAPACITY 343 ug/dl (241-421)
--- NOTE | 2017-01-31 17:45 | RADRPT ---
PROCEDURE: CT brain without contrast CLINICAL INDICATION: Headaches/cephalgia TECHNIQUE: CT of the brain without contrast was performed on a multidetector CT scanner, with multi planar reformats. One or more of the following dose reduction techniques were used: Automated expos ure control, adjustment in mA and / or kV according to patient size, use of iterative reconstructive technique. CTDIvol = 45 mGy; DLP = 5-810 mGy-cm. COMPARISON: None available FINDINGS: No acute intracranial hemorrhage is identified. No extra-axial fluid collection is seen. There is no mass effect. No midline shift is identified. Ventricles and sulci are within normal limits for size and configuration. The density of the brain is unremarkable. Valadez-white differentiation is preserved. Osseous structures are unremarkable. Mastoid air cells and imaged paranasal sinuses grossly clear. IMPRESSION: Unremarkable noncontrast CT of the brain. RPTAT: VV .David Rose MD, MD Date Time Electronically viewed and signed by .David Rose MD, MD on 01/31/2017 17:45 .O/
[2017-01-31] MEDS: HYDROCODONE/APAP (10/325) TAB PO PRN (18:21)
[2017-01-31] MEDS: METOPROLOL 25 MG TAB PO SCH (20:37)
[2017-01-31] MEDS ORDERED: ENOXAPARIN 100 MG/ML SYG SC SCH (21:00)
--- NOTE | 2017-01-31 21:35 | PN ---
Date/Time of Note Date/Time of Note DATE: 01/31/17 TIME: 21:34 Assessment/Plan VTE Prophylaxis VTE Prophylaxis Intervention: SCD's Lines/Catheters IV Catheter Type (from Nrs): Saline Lock Urinary Cath still in place: No Assessment/Plan Chief Complaint/Hosp Course This is a 46-year-old morbidly obese female with a history of PE 9 years ago, depression/anxiety, recurrent lower extremity cellulitis. Patient presented to the ER complaining of shortness of breath and chest pain which started yesterday. Symptoms are worse with exertion. Chest pain mainly occurs when taking a deep breath. Denied fever/chills, nausea/vomiting, palpitation, lightheadedness. She has no hx of cancer, no overt chf and has some orthopnea but not hypotensive Problems: Subjective 24 Hr Interval Summary Free Text/Dictation The patietn ten no clincal symptoms of tamponade per RN BP stable with no hypotension NO tachycardia present No obvious RV collapse during diastole on echo review Possible pericardiocentesis and window with CTS in AM due to mod-large PEF Exam/Review of Systems Vital Signs Vitals Vital Signs Date Time Temp Pulse Resp B/P Pulse Ox O2 Delivery O2 Flow Rate FiO2 01/31/17 20:48 92 01/31/17 19:42 94.5 16 114/55 98 01/31/17 19:00 Nasal Cannula 2.0 Intake and Output 01/30/17 01/30/17 01/31/17 15:00 23:00 07:00 Intake Total 950 ml 500 ml Balance 950 ml 500 ml Results Result Diagram: 01/31/17 0538 01/31/17 0538 Results 24 hrs Laboratory Tests Test 01/31/17 05:38 01/31/17 07:42 01/31/17 11:04 01/31/17 14:51 White Blood Count 13.0 H Red Blood Count 4.50 Hemoglobin 10.3 L Hematocrit 35.4 L Mean Corpuscular Volume 78.7 L Mean Corpuscular Hemoglobin 22.9 L Mean Corpuscular Hemoglobin Concent 29.1 L Red Cell Distribution Width 17.0 H Platelet Count 509 H Mean Platelet Volume 9.7 Neutrophils % 71.7 Lymphocytes % 19.1 Monocytes % 6.5 Eosinophils % 1.5 Basophils % 0.5 Nucleated Red Blood Cells % 0.2 H Neutrophils # (Manual) 9 H Lymphocytes # 2.5 Monocytes # 0.9 Eosinophils # 0.2 Basophils # 0.1 Nucleated Red Blood Cells # 0.0 Sodium Level 137 Potassium Level 4.4 Chloride Level 97 Carbon Dioxide Level 28 Anion Gap 16 Blood Urea Nitrogen 27 H Creatinine 1.22 H Glucose Level 114 Hemoglobin A1c 6.2 H Calcium Level 9.5 Magnesium Level 2.2 Total Bilirubin 0.3 Direct Bilirubin 0.00 Indirect Bilirubin 0.3 Aspartate Amino Transf (AST/SGOT) 16 Alanine Aminotransferase (ALT/SGPT) 28 Alkaline Phosphatase 94 Total Protein 8.2 H Albumin 4.0 Globulin 4.20 H Albumin/Globulin Ratio 0.95 Triglycerides Level 90 Cholesterol Level 125 LDL Cholesterol, Calculated 71 HDL Cholesterol 36 Cholesterol/HDL Ratio 3.4 Bedside Glucose 126 109 Iron Level 18 L Total Iron Binding Capacity 343 Percent Iron Saturation 5 L Ferritin 68.8 Test 01/31/17 18:00 01/31/17 20:36 Bedside Glucose 106 136 Medications Medications Current Medications Lorazepam (Ativan) 0.5 mg Q8H PRN PO ANXIETY; Start 01/30/17 at 05:00 Ondansetron HCl (Zofran Inj) 4 mg Q6H PRN IV NAUSEA AND/OR VOMITING Last administered on 01/31/17 07:38; Admin Dose 4 MG; Start 01/30/17 at 05:00 Acetaminophen (Tylenol Tab) 650 mg Q6H PRN PO PAIN LEVEL 1-3 OR FEVER Last administered on 01/30/17 12:04; Admin Dose 650 MG; Start 01/30/17 at 05:00 Diagnostic Test (Pha) (Accu-Chek) 1 ea 02 XX ; Start 01/31/17 at 02:00 Alprazolam (Xanax) 1 mg QHS PRN PO ANXIETY; Start 01/30/17 at 05:00 Benazepril HCl (Lotensin) 40 mg DAILY PO Last administered on 01/31/17 08:08; Admin Dose 40 MG; Start 01/30/17 at 09:00; Status Future Hold Docusate Sodium (Colace) 100 mg BID PO ; Start 01/30/17 at 09:00 Gabapentin (Neurontin) 100 mg BID PO Last administered on 01/31/17 20:37; Admin Dose 100 MG; Start 01/30/17 at 09:00 Acetaminophen/ Hydrocodone Bitart ([place] (10/325)) 1 tab Q6H PRN PO PAIN Last administered on 01/31/17 18:21; Admin Dose 1 TAB; Start 01/30/17 at 05:00 Miscellaneous Information 1 ea NOTE XX ; Start 01/30/17 at 05:00 Glucose (Glutose) 15 gm Q15M PRN PO DECREASED GLUCOSE; Start 01/30/17 at 05:00 Glucose (Glutose) 22.5 gm Q15M PRN PO DECREASED GLUCOSE; Start 01/30/17 at 05: 00 Dextrose (D50w Syringe) 25 ml Q15M PRN IV DECREASED GLUCOSE; Start 01/30/17 at 05:00 Dextrose (D50w Syringe) 50 ml Q15M PRN IV DECREASED GLUCOSE; Start 01/30/17 at 05:00 Glucagon (Glucagen) 1 mg Q15M PRN IM DECREASED GLUCOSE; Start 01/30/17 at 05:00 Glucose (Glutose) 15 gm Q15M PRN BUCCAL DECREASED GLUCOSE; Start 01/30/17 at 05 :00 Nitroglycerin (Nitroglycerin (Sl Tab) 0.4 Mg) 1 tab [id number] PRN SL CHEST PAIN ; Start 01/30/17 at 05:30 Metoprolol Tartrate (Lopressor) 25 mg BID PO Last administered on 01/31/17 20: 37; Admin Dose 25 MG; Start 01/31/17 at 21:00 Venlafaxine HCl (Effexor Xr) 37.5 mg DAILY PO ; Start 02/01/17 at 09:00 KOLBY KING MD Jan 31, 2017 21:35
[2017-02-01] VITALS (13 sets, daily range): BP systolic 96–118; BP diastolic 52–77; PULSE 71–105; RESP 16–20
[2017-02-01] MEDS: ACCU-CHEK XX SCH (02:00)
[2017-02-01 06:22] LABS: BASOPHILS % 0.4 % (0.0-2.0); EOSINOPHILS # 0.1 10^3/ul (0.0-0.5); EOSINOPHILS % 1.1 % (0.0-7.0); HEMATOCRIT 31.7 % (37.0-47.0); HEMOGLOBIN 9.4 g/dl (12.0-16.0); LYMPHOCYTES # 2.1 10^3/ul (0.8-2.9); LYMPHOCYTES % 18.7 % (15.0-51.0); MEAN CORPUSCULAR HGB CONC 29.7 g/dl (32.0-37.0); MEAN CORPUSCULAR VOLUME 77.5 fl (82.0-101.0); MEAN PLATELET VOLUME 9.2 fl (7.4-10.4); MONOCYTE # 0.8 10^3/ul (0.3-0.9); MONOCYTES % 7.1 % (0.0-11.0); NEUTROPHILS % 72.1 % (39.0-77.0); NUCLEATED RED BLOOD CELLS% 0.3 /100WBC (0.0-0.0); PLATELET COUNT 451 10^3/UL (140-415); RED BLOOD COUNT 4.09 10^6/ul (4.20-5.40); RED CELL DISTRIBUTION WIDTH 17.1 % (11.5-14.5)
[2017-02-01 07:03] LABS: ALBUMIN 3.7 g/dl (3.3-4.9); ALBUMIN/GLOBULIN RATIO 0.9; BILIRUBIN,INDIRECT 0.1 mg/dl (0-1.1); BILIRUBIN,TOTAL 0.1 mg/dl (0.2-1.3); CALCIUM 9.1 mg/dl (8.4-10.2); CREATININE 1.68 mg/dl (0.44-1.00); POTASSIUM 4.7 mmol/L (3.5-5.1); TOTAL PROTEIN 7.8 g/dl (6.1-8.1)
--- NOTE | 2017-02-01 07:18 | PN ---
Date/Time of Note Date/Time of Note DATE: 02/01/17 TIME: 07:17 Assessment/Plan VTE Prophylaxis VTE Prophylaxis Intervention: contraindicated Lines/Catheters [facility] Saline Lock Urinary Cath still in place: No Assessment/Plan Chief Complaint/Hosp Course 1. Chest pain. Serial troponins negative. 2D echocardiogram showing moderate sized pericardial effusion. This could be the reason for her underlying chest pain. Cardiac surgery has been consulted. Cardiology following the patient. 2. Moderate pericardial effusion. Status post evaluation by cardiac surgery. Nonsurgical management as per cardiac surgery. 3. Acute respiratory failure. Hypoxic. The patient has known history of pulmonary embolism. The patient not a candidate for a CT angiogram because of the heavy weight. VQ scan has been ordered. The patient could not tolerate VQ scan because of orthopnea. B/L LE venous Doppler negative for any DVT . 4. Essential hypertension. Continue antihypertensives. 5. Depression. Continue antidepressants. 6. Type 2 diabetes mellitus. Will hold the metformin because of worsening renal function. Continue sliding scale insulin. 7. Acute kidney injury. Will hold her nephrotoxic medications. Worsening. Obtain nephrology consult. 8. Microcytic, hypochromic anemia. Underlying iron deficiency. Continue the patient on iron supplements. 9. Obesity. BMI of 46.3 kg/m. Weight reduction advised. 10. Fluids, electrolytes, and nutrition. Carbohydrate controlled diet. 11. DVT prophylaxis. Bilateral sequential compression devices. 12. Plan. Continue current management. Hold nephrotoxic medications. Await further recommendations from consultants. Obtain nephrology consult. Case discussed with Dr. Hernandez. Problems: Subjective 24 Hr Interval Summary Free Text/Dictation Chest pain well controlled. Continues to have headache. Exam/Review of Systems Vital Signs Vitals Vital Signs Date Time Temp Pulse Resp B/P Pulse Ox O2 Delivery O2 Flow Rate FiO2 02/01/17 07:12 97.8 80 20 118/58 91 01/31/17 19:00 Nasal Cannula 2.0 Intake and Output 01/31/17 01/31/17 02/01/17 15:00 23:00 07:00 Intake Total 640 ml 700 ml Balance 640 ml 700 ml Exam General: Morbidly obese 46 year-old female lying in bed in no apparent distress. HEENT: Normocephalic, atraumatic. Eyes: Anicteric sclerae, conjunctivae clear. ENT: Nasal septum midline, oral mucosa moist. Neck supple, no JVD noticed. Respiratory: Bilaterally diminished breath sounds. No use of accessory muscles of respiration. No adventitious breath sounds. Cardiovascular: S1, S2 heard. Distant heart sounds Abdomen: Soft, nontender, and nondistended. Bowel sounds positive in all 4 quadrants. Genitourinary: Deferred. Extremities: No cyanosis, no clubbing, no edema. Peripheral pulses palpable. Neurologic: Cranial nerves II through XII grossly intact. The patient is awake, alert, and oriented. Skin: Normal skin turgor. No skin rashes. Results Result Diagram: 02/01/17 0546 02/01/17 0546 Results 24 hrs Laboratory Tests Test 01/31/17 07:42 01/31/17 11:04 01/31/17 14:51 01/31/17 18:00 Bedside Glucose 126 109 106 Iron Level 18 L Total Iron Binding Capacity 343 Percent Iron Saturation 5 L Ferritin 68.8 Test 01/31/17 20:36 02/01/17 05:46 Bedside Glucose 136 White Blood Count 11.0 H Red Blood Count 4.09 L Hemoglobin 9.4 L Hematocrit 31.7 L Mean Corpuscular Volume 77.5 L Mean Corpuscular Hemoglobin 23.0 L Mean Corpuscular Hemoglobin Concent 29.7 L Red Cell Distribution Width 17.1 H Platelet Count 451 H Mean Platelet Volume 9.2 Neutrophils % 72.1 Lymphocytes % 18.7 Monocytes % 7.1 Eosinophils % 1.1 Basophils % 0.4 Nucleated Red Blood Cells % 0.3 H Neutrophils # (Manual) 8 H Lymphocytes # 2.1 Monocytes # 0.8 Eosinophils # 0.1 Basophils # 0.0 Nucleated Red Blood Cells # 0.0 Sodium Level 137 Potassium Level 4.7 Chloride Level 96 L Carbon Dioxide Level 27 Anion Gap 19 H Blood Urea Nitrogen 38 #H Creatinine 1.68 H Glucose Level 117 Calcium Level 9.1 Total Bilirubin 0.1 L Direct Bilirubin 0.00 Indirect Bilirubin 0.1 Aspartate Amino Transf (AST/SGOT) 19 Alanine Aminotransferase (ALT/SGPT) 27 Alkaline Phosphatase 98 Total Protein 7.8 Albumin 3.7 Globulin 4.10 H Albumin/Globulin Ratio 0.90 Free Thyroxine 1.42 Medications Medications Current Medications Lorazepam (Ativan) 0.5 mg Q8H PRN PO ANXIETY; Start 01/30/17 at 05:00 Ondansetron HCl (Zofran Inj) 4 mg Q6H PRN IV NAUSEA AND/OR VOMITING Last administered on 01/31/17 22:58; Admin Dose 4 MG; Start 01/30/17 at 05:00 Acetaminophen (Tylenol Tab) 650 mg Q6H PRN PO PAIN LEVEL 1-3 OR FEVER Last administered on 01/30/17 12:04; Admin Dose 650 MG; Start 01/30/17 at 05:00 Diagnostic Test (Pha) (Accu-Chek) 1 ea 02 XX ; Start 01/31/17 at 02:00 Alprazolam (Xanax) 1 mg QHS PRN PO ANXIETY; Start 01/30/17 at 05:00 Benazepril HCl (Lotensin) 40 mg DAILY PO Last administered on 01/31/17 08:08; Admin Dose 40 MG; Start 01/30/17 at 09:00; Status Future Hold Docusate Sodium (Colace) 100 mg BID PO ; Start 01/30/17 at 09:00 Gabapentin (Neurontin) 100 mg BID PO Last administered on 01/31/17 20:37; Admin Dose 100 MG; Start 01/30/17 at 09:00 Acetaminophen/ Hydrocodone Bitart ([place] (10/325)) 1 tab Q6H PRN PO PAIN Last administered on 01/31/17 18:21; Admin Dose 1 TAB; Start 01/30/17 at 05:00 Miscellaneous Information 1 ea NOTE XX ; Start 01/30/17 at 05:00 Glucose (Glutose) 15 gm Q15M PRN PO DECREASED GLUCOSE; Start 01/30/17 at 05:00 Glucose (Glutose) 22.5 gm Q15M PRN PO DECREASED GLUCOSE; Start 01/30/17 at 05: 00 Dextrose (D50w Syringe) 25 ml Q15M PRN IV DECREASED GLUCOSE; Start 01/30/17 at 05:00 Dextrose (D50w Syringe) 50 ml Q15M PRN IV DECREASED GLUCOSE; Start 01/30/17 at 05:00 Glucagon (Glucagen) 1 mg Q15M PRN IM DECREASED GLUCOSE; Start 01/30/17 at 05:00 Glucose (Glutose) 15 gm Q15M PRN BUCCAL DECREASED GLUCOSE; Start 01/30/17 at 05 :00 Nitroglycerin (Nitroglycerin (Sl Tab) 0.4 Mg) 1 tab [id number] PRN SL CHEST PAIN ; Start 01/30/17 at 05:30 Metoprolol Tartrate (Lopressor) 25 mg BID PO Last administered on 01/31/17t 20: 37; Admin Dose 25 MG; Start 01/31/17 at 21:00 Venlafaxine HCl (Effexor Xr) 37.5 mg DAILY PO ; Start 02/01/17 at 09:00 Indomethacin (Indocin) 25 mg TID PO ; Start 02/01/17 at 09:00; Status UNV Colchicine (Colchicine) 0.6 mg BID PO ; Start 02/01/17 at 09:00; Status UNV SOLITARIO LAMBERT NP Feb 01, 2017 07:18
[2017-02-01] MEDS: INSULIN ASPART [NOVOLOG] 3 ML PEN SC SCH ×4 (07:22→20:34)
[2017-02-01 07:42] LABS: MAGNESIUM 2.2 mg/dl (1.7-2.5); PHOSPHORUS 5.6 mg/dl (2.5-4.9)
--- NOTE | 2017-02-01 08:06 | PN ---
Date/Time of Note Date/Time of Note DATE: 02/01/17 TIME: 08:04 Assessment/Plan VTE Prophylaxis VTE Prophylaxis Intervention: SCD's Lines/Catheters IV Catheter Type (from Nrs): Saline Lock Urinary Cath still in place: No Assessment/Plan Chief Complaint/Hosp Course This is a 46-year-old morbidly obese female with a history of PE 9 years ago, depression/anxiety, recurrent lower extremity cellulitis. Patient presented to the ER complaining of shortness of breath and chest pain which started yesterday. Symptoms are worse with exertion. Chest pain mainly occurs when taking a deep breath. Denied fever/chills, nausea/vomiting, palpitation, lightheadedness. She has no hx of cancer, no overt chf and has some orthopnea but not hypotensive Problems: Assessment/Plan Mod-Large PEF Possible pericarditis SOB Atypical chest pain hx of PE Obesity -seen by dr Ashby and felt that given clinically stable with no clinical signs of tamponade, risk>benefit for pericardial window -rx indocin and colchcine - recheck echo in few days -atypical chest pain and unlikey ACS -echo reviewed Subjective 24 Hr Interval Summary Free Text/Dictation The patient stable overnight Exam/Review of Systems Vital Signs Vitals Vital Signs Date Time Temp Pulse Resp B/P Pulse Ox O2 Delivery O2 Flow Rate FiO2 02/01/17 07:12 97.8 80 20 118/58 91 01/31/17 19:00 Nasal Cannula 2.0 Intake and Output 01/31/17 01/31/17 02/01/17 15:00 23:00 07:00 Intake Total 640 ml 700 ml Balance 640 ml 700 ml Results Result Diagram: 02/01/17 0546 02/01/17 0546 Results 24 hrs Laboratory Tests Test 01/31/17 11:04 01/31/17 14:51 01/31/17 18:00 01/31/17 20:36 Bedside Glucose 109 106 136 Iron Level 18 L Total Iron Binding Capacity 343 Percent Iron Saturation 5 L Ferritin 68.8 Test 02/01/17 05:46 02/01/17 07:19 White Blood Count 11.0 H Red Blood Count 4.09 L Hemoglobin 9.4 L Hematocrit 31.7 L Mean Corpuscular Volume 77.5 L Mean Corpuscular Hemoglobin 23.0 L Mean Corpuscular Hemoglobin Concent 29.7 L Red Cell Distribution Width 17.1 H Platelet Count 451 H Mean Platelet Volume 9.2 Neutrophils % 72.1 Lymphocytes % 18.7 Monocytes % 7.1 Eosinophils % 1.1 Basophils % 0.4 Nucleated Red Blood Cells % 0.3 H Neutrophils # (Manual) 8 H Lymphocytes # 2.1 Monocytes # 0.8 Eosinophils # 0.1 Basophils # 0.0 Nucleated Red Blood Cells # 0.0 Sodium Level 137 Potassium Level 4.7 Chloride Level 96 L Carbon Dioxide Level 27 Anion Gap 19 H Blood Urea Nitrogen 38 #H Creatinine 1.68 H Glucose Level 117 Calcium Level 9.1 Phosphorus Level 5.6 H Magnesium Level 2.2 Total Bilirubin 0.1 L Direct Bilirubin 0.00 Indirect Bilirubin 0.1 Aspartate Amino Transf (AST/SGOT) 19 Alanine Aminotransferase (ALT/SGPT) 27 Alkaline Phosphatase 98 Total Protein 7.8 Albumin 3.7 Globulin 4.10 H Albumin/Globulin Ratio 0.90 Thyroid Stimulating Hormone (TSH) Pending Free Thyroxine 1.42 Bedside Glucose 118 Medications Medications Current Medications Lorazepam (Ativan) 0.5 mg Q8H PRN PO ANXIETY; Start 01/30/17 at 05:00 Ondansetron HCl (Zofran Inj) 4 mg Q6H PRN IV NAUSEA AND/OR VOMITING Last administered on 01/31/17 22:58; Admin Dose 4 MG; Start 01/30/17 at 05:00 Acetaminophen (Tylenol Tab) 650 mg Q6H PRN PO PAIN LEVEL 1-3 OR FEVER Last administered on 01/30/17 12:04; Admin Dose 650 MG; Start 01/30/17 at 05:00 Diagnostic Test (Pha) (Accu-Chek) 1 ea 02 XX ; Start 01/31/17 at 02:00 Alprazolam (Xanax) 1 mg QHS PRN PO ANXIETY; Start 01/30/17 at 05:00 Benazepril HCl (Lotensin) 40 mg DAILY PO Last administered on 01/31/17 08:08; Admin Dose 40 MG; Start 01/30/17 at 09:00; Status Future Hold Docusate Sodium (Colace) 100 mg BID PO ; Start 01/30/17 at 09:00 Gabapentin (Neurontin) 100 mg BID PO Last administered on 01/31/17 20:37; Admin Dose 100 MG; Start 01/30/17 at 09:00 Acetaminophen/ Hydrocodone Bitart ([place] (10/325)) 1 tab Q6H PRN PO PAIN Last administered on 01/31/17 18:21; Admin Dose 1 TAB; Start 01/30/17 at 05:00 Miscellaneous Information 1 ea NOTE XX ; Start 01/30/17 at 05:00 Glucose (Glutose) 15 gm Q15M PRN PO DECREASED GLUCOSE; Start 01/30/17 at 05:00 Glucose (Glutose) 22.5 gm Q15M PRN PO DECREASED GLUCOSE; Start 01/30/17 at 05: 00 Dextrose (D50w Syringe) 25 ml Q15M PRN IV DECREASED GLUCOSE; Start 01/30/17 at 05:00 Dextrose (D50w Syringe) 50 ml Q15M PRN IV DECREASED GLUCOSE; Start 01/30/17 at 05:00 Glucagon (Glucagen) 1 mg Q15M PRN IM DECREASED GLUCOSE; Start 01/30/17 at 05:00 Glucose (Glutose) 15 gm Q15M PRN BUCCAL DECREASED GLUCOSE; Start 01/30/17 at 05 :00 Nitroglycerin (Nitroglycerin (Sl Tab) 0.4 Mg) 1 tab [id number] PRN SL CHEST PAIN ; Start 01/30/17 at 05:30 Metoprolol Tartrate (Lopressor) 25 mg BID PO Last administered on 01/31/17 20: 37; Admin Dose 25 MG; Start 01/31/17 at 21:00 Venlafaxine HCl (Effexor Xr) 37.5 mg DAILY PO ; Start 02/01/17 at 09:00 Indomethacin (Indocin) 25 mg TID PO ; Start 02/01/17 at 09:00 Colchicine (Colchicine) 0.6 mg BID PO ; Start 02/01/17 at 09:00 KOLBY KING MD Feb 01, 2017 08:06
[2017-02-01] MEDS: DOCUSATE SODIUM 100 MG CAP PO SCH ×2 (08:20→20:32)
[2017-02-01] MEDS: GABAPENTIN 100 MG CAP PO SCH ×2 (08:20→20:33)
[2017-02-01 08:34] LABS: THYROID STIMULATING HORMONE 3.38 MIU/L (0.465-4.680)
[2017-02-01] MEDS: COLCHICINE 0.6 MG TAB PO SCH ×2 (08:39→20:32)
[2017-02-01] MEDS: METOPROLOL 25 MG TAB PO SCH ×2 (08:40→20:33)
[2017-02-01] MEDS ORDERED: VENLAFAXINE (XR) 37.5 MG CAP PO SCH (09:00)
[2017-02-01] MEDS: INDOMETHACIN 25 MG PO SCH ×2 (11:18→12:26)
--- NOTE | 2017-02-01 11:27 | CONS ---
Date/Time of Note Date/Time of Note DATE: 02/01/17 TIME: 11:26 Assessment/Plan Assessment/Plan Additional Assessment/Plan 1. Chest pain. 2. Moderate pericardial effusion without tamponade physiology, Conservative management 3. Hypoxia 4. Essential hypertension 5. Depression. 6. Type 2 diabetes mellitus 7. Acute kidney injury 8. Microcytic, hypochromic anemia 9. Morbid Obesity 10. Fluids, electrolytes, and nutrition Consultation Date/Type/Reason Admit Date/Time Jan 30, 2017 at 02:47 Date of Consultation: Feb 01, 2017 Type of Consultation: Nephrology Reason for Consultation JANIS Referring Provider: SOLITARIO LAMBERT [employer]ISTICS SYSTEM ENGINEER Hx of Present Illness 46-year-old morbidly obese female with a history of PE 9 years ago, depression/ anxiety, Chronic HTN and Diabetes who presented with shortness of breath and chest pain. Found to have pericardial effusion by ECHO. Seen by Cardiology and CT Sx, no plans for invasive procedure at this time. Pt presented with normal renal function however with increasing BUN/Cr during this admission, NO decreased UO or dysuria or hematuria. Pt was on Metformin and Benazepril however these medications have been discontinued.. Also noted by borderline hypotension from baseline which has resolved. Nephrology consulted for JANIS. Constitutional: requiring O2 Past Medical History Medical History: diabetes, hypertension, other (PE, depression, anxiety, morbid obesity) Past Surgical History Past Surgical Hx: cholecystectomy Family History Significant Family History: renal disease Social History Alcohol Use: none Smoking Status: Never smoker Drug Use: none Exam/Review of Systems Vital Signs Vitals Vital Signs Date Time Temp Pulse Resp B/P Pulse Ox O2 Delivery O2 Flow Rate FiO2 02/01/17 09:17 78 02/01/17 08:00 Nasal Cannula 2.0 02/01/17 07:12 97.8 20 118/58 91 Intake and Output 01/31/17 01/31/17 02/01/17 15:00 23:00 07:00 Intake Total 640 ml 700 ml Balance 640 ml 700 ml Exam Constitutional: alert, oriented, No distress Eyes: EOMI, nl conjunctiva ENMT: mucosa pink and moist Neck: non-tender, supple, No jvd Respiratory: crackles/rales, No diminished breath sounds, No labored breathing Cardiovascular: edema (trace), regular rate and rhythm Gastrointestinal: distended, non-tender, soft, No rebound or guarding, No tender Musculoskeletal: nl extremities to inspection Extremities: edema Neurological: SURGICAL SUPPLY ASSISTANT II-XII intact, nl mental status, nl speech, nl strength, No confused, No lethargic Skin: nl turgor, No diaphoresis, No rash or lesions Results Result Diagram: 02/01/17 0546 02/01/17 0546 Results 24 hrs Laboratory Tests Test 01/31/17 14:51 01/31/17 18:00 01/31/17 20:36 02/01/17 05:46 Iron Level 18 L Total Iron Binding Capacity 343 Percent Iron Saturation 5 L Ferritin 68.8 Bedside Glucose 106 136 White Blood Count 11.0 H Red Blood Count 4.09 L Hemoglobin 9.4 L Hematocrit 31.7 L Mean Corpuscular Volume 77.5 L Mean Corpuscular Hemoglobin 23.0 L Mean Corpuscular Hemoglobin Concent 29.7 L Red Cell Distribution Width 17.1 H Platelet Count 451 H Mean Platelet Volume 9.2 Neutrophils % 72.1 Lymphocytes % 18.7 Monocytes % 7.1 Eosinophils % 1.1 Basophils % 0.4 Nucleated Red Blood Cells % 0.3 H Neutrophils # (Manual) 8 H Lymphocytes # 2.1 Monocytes # 0.8 Eosinophils # 0.1 Basophils # 0.0 Nucleated Red Blood Cells # 0.0 Sodium Level 137 Potassium Level 4.7 Chloride Level 96 L Carbon Dioxide Level 27 Anion Gap 19 H Blood Urea Nitrogen 38 #H Creatinine 1.68 H Glucose Level 117 Calcium Level 9.1 Phosphorus Level 5.6 H Magnesium Level 2.2 Total Bilirubin 0.1 L Direct Bilirubin 0.00 Indirect Bilirubin 0.1 Aspartate Amino Transf (AST/SGOT) 19 Alanine Aminotransferase (ALT/SGPT) 27 Alkaline Phosphatase 98 Total Protein 7.8 Albumin 3.7 Globulin 4.10 H Albumin/Globulin Ratio 0.90 Thyroid Stimulating Hormone (TSH) 3.380 Free Thyroxine 1.42 Test 02/01/17 07:19 Bedside Glucose 118 Medications Medications Current Medications Lorazepam (Ativan) 0.5 mg Q8H PRN PO ANXIETY; Start 01/30/17 at 05:00 Ondansetron HCl (Zofran Inj) 4 mg Q6H PRN IV NAUSEA AND/OR VOMITING Last administered on 01/31/17t 22:58; Admin Dose 4 MG; Start 01/30/17 at 05:00 Acetaminophen (Tylenol Tab) 650 mg Q6H PRN PO PAIN LEVEL 1-3 OR FEVER Last administered on 01/30/17 12:04; Admin Dose 650 MG; Start 01/30/17 at 05:00 Diagnostic Test (Pha) (Accu-Chek) 1 ea 02 XX ; Start 01/31/17 at 02:00 Alprazolam (Xanax) 1 mg QHS PRN PO ANXIETY; Start 01/30/17 at 05:00 Benazepril HCl (Lotensin) 40 mg DAILY PO Last administered on 01/31/17 08:08; Admin Dose 40 MG; Start 01/30/17 at 09:00; Status Future Hold Docusate Sodium (Colace) 100 mg BID PO ; Start 01/30/17 at 09:00 Gabapentin (Neurontin) 100 mg BID PO Last administered on 01/31/17 20:37; Admin Dose 100 MG; Start 01/30/17 at 09:00 Acetaminophen/ Hydrocodone Bitart ([place] (10/325)) 1 tab Q6H PRN PO PAIN Last administered on 01/31/17 18:21; Admin Dose 1 TAB; Start 01/30/17 at 05:00 Miscellaneous Information 1 ea NOTE XX ; Start 01/30/17 at 05:00 Glucose (Glutose) 15 gm Q15M PRN PO DECREASED GLUCOSE; Start 01/30/17 at 05:00 Glucose (Glutose) 22.5 gm Q15M PRN PO DECREASED GLUCOSE; Start 01/30/17 at 05: 00 Dextrose (D50w Syringe) 25 ml Q15M PRN IV DECREASED GLUCOSE; Start 01/30/17 at 05:00 Dextrose (D50w Syringe) 50 ml Q15M PRN IV DECREASED GLUCOSE; Start 01/30/17 at 05:00 Glucagon (Glucagen) 1 mg Q15M PRN IM DECREASED GLUCOSE; Start 01/30/17 at 05:00 Glucose (Glutose) 15 gm Q15M PRN BUCCAL DECREASED GLUCOSE; Start 01/30/17 at 05 :00 Nitroglycerin (Nitroglycerin (Sl Tab) 0.4 Mg) 1 tab [id number] PRN SL CHEST PAIN ; Start 01/30/17 at 05:30 Venlafaxine HCl (Effexor Xr) 37.5 mg DAILY PO ; Start 02/01/17 at 09:00 Indomethacin (Indocin) 25 mg TID PO Last administered on 02/01/17 11:18; Admin Dose 25 MG; Start 02/01/17 at 09:00 Colchicine (Colchicine) 0.6 mg BID PO Last administered on 02/01/17 08:39; Admin Dose 0.6 MG; Start 02/01/17 at 09:00 Metoprolol Tartrate (Lopressor) 12.5 mg BID PO ; Start 02/01/17 at 21:00; Status UNV Procedures Procedures PROCEDURE: XR Chest. CLINICAL INDICATION: Infiltrate TECHNIQUE: AP Portable chest. COMPARISON: 06/29/2016 FINDINGS: There is moderate to marked cardiomegaly. The lungs are clear. The osseous structures are unremarkable. IMPRESSION: No acute findings. RPTAT: HIKT .Sabino Irene MD, MD Date Time Electronically viewed and signed by .Sabino Irene MD, MD on 01/30/2017 02:49 ECHO Conclusions 1. Normal left ventricular systolic function. Normal left ventricular cavity size. Moderate concentric left ventricular hypertrophy. Ejection fraction is visually estimated at 55 %. Tissue Doppler/Mitral Doppler indices are consistent with impaired relaxation (Stage I diastolic dysfunction). 2. Normal appearance of the mitral valve. Mild mitral annular calcification. Trace mitral regurgitation. 3. Normal appearance of the aortic valve. No significant aortic stenosis or insufficiency. 4. Normal appearance of the tricuspid valve. Estimated peak PA systolic pressure 22 mmHg. There is trace tricuspid regurgitation. 5. Normal pulmonic valve appearance. 6. Moderate pericardial effusion. Electronically Signed By: Maycol Schwab PROCEDURE: Renal US. CLINICAL INDICATION: Renal dysfunction. TECHNIQUE: Multiple sonographic images of the kidneys and urinary bladder were obtained. The images were reviewed on a PACS workstation. COMPARISON: No prior studies are available for comparison. FINDINGS: The right kidney measures 11.4 cm. The left kidney is not visualized. There is no right renal mass, hydronephrosis, or calculus. The right perirenal region is normal with no fluid collection or mass. The urinary bladder is not visualized. IMPRESSION: 1. Normal right kidney. 2. Left kidney and urinary bladder not visualized. RPTAT: QQ .Geoff Driscoll MD, Date Time Electronically viewed and signed by .Geoff Driscoll MD, MD on 02/01/2017 13:34 ALBERT MARION MD Feb 01, 2017 11:27
[2017-02-01] MEDS ORDERED: SUMATRIPTAN 6 MG/0.5 ML INJ SC ONE (13:00)
--- NOTE | 2017-02-01 13:14 | RADRPT ---
PROCEDURE: XR Chest AP portable CLINICAL INDICATION: Dyspnea TECHNIQUE: An AP portable radiograph of the chest was submitted. COMPARISON: 01/30/2017 FINDINGS: Support Hardware: None Cardiovascular: The cardiomediastinal silhouette remains grossly enlarged and globular in configurat ion compatible with cardiomyopathy or pericardial effusion. The pulmonary vasculature again appears mildly congested. Lung Rojas: There is improving infiltrate/subsegmental atelectasis at the right lung base. Pleural Spaces: No pneumothorax or pleural effusion is identified. Osseous Structures: The osseous structures appear intact. Soft Tissues: The soft tissues appear generous. IMPRESSION: 1. Persistent gross globular enlargement of the cardiomediastinal silhouette compatible with cardio myopathy or pericardial effusion with the pulmonary vasculature again mildly congested. 2. Improving infiltrate/subsegmental atelectasis at the right lung base. Physician Sunni Date Time Electronically viewed and signed by Physician Sunni on 02/01/2017 13:14 /
--- NOTE | 2017-02-01 13:35 | RADRPT ---
PROCEDURE: Renal US. CLINICAL INDICATION: Renal dysfunction. TECHNIQUE: Multiple sonographic images of the kidneys and urinary bladder were obtained. The imag es were reviewed on a PACS workstation. COMPARISON: No prior studies are available for comparison. FINDINGS: The right kidney measures 11.4 cm. The left kidney is not visualized. There is no right renal mass, hydronephrosis, or calculus. The right perirenal region is normal wit h no fluid collection or mass. The urinary bladder is not visualized. IMPRESSION: 1. Normal right kidney. 2. Left kidney and urinary bladder not visualized. RPTAT: QQ .Geoff Driscoll MD, MD Date Time Electronically viewed and signed by .Geoff Driscoll MD, on 02/01/2017 13:34 .R/
[2017-02-01] MEDS ORDERED: HYDROmorphONE 1 MG/ML SYG IV STA (13:42)
[2017-02-01] MEDS ORDERED: morphine 2 MG INJ IV PRN (14:00)
[2017-02-01] MEDS: HEPARIN 5,000 UNIT/0.5 ML VIAL SC SCH ×2 (18:20→21:17)
[2017-02-01 19:17] LABS: AADO2 Arterial 89.1 mmHg (7.0-24.0); Allen Test ACCEPTAB; Arterial COHb 0.3 % (0.0-3.0); Arterial HCO3 25.9 mmol/L (22.0-26.0); Arterial MetHb 0.1 % (0.0-1.5); Arterial Total Hemglobin 10.7 g/dl (12.0-18.0); MODE NASAL CANNULA
[2017-02-01] MEDS: HYDROCODONE/APAP (10/325) TAB PO PRN (20:33)
[2017-02-01] MEDS: ONDANSETRON 4 MG INJ IV PRN (20:56)
[2017-02-01 23:05] LABS: ADD UMIC YES; UR ASCORBIC ACID NEGATIVE (NEGATIVE); UR BILIRUBIN (Dip) NEGATIVE (NEGATIVE); UR BLOOD (Dip) NEGATIVE (NEGATIVE); UR CLARITY SLIGHTLY CLOUDY (CLEAR); UR COLOR AMBER (YELLOW); UR GLUCOSE (Dip) NEGATIVE (NEGATIVE); UR KETONES (Dip) NEGATIVE (NEGATIVE); UR LEUKOCYTE ESTERASE (Dip) TRACE Leu/ul (NEGATIVE); UR MUCUS FEW /HPF (NONE SEEN); UR NITRITE (Dip) NEGATIVE (NEGATIVE); UR RBC 2 /HPF (0-5); UR SPECIFIC GRAVITY (Dip) 1.019 (1.003-1.030); UR SQUAMOUS EPITHELIAL CELL FEW /HPF (FEW); UR TOTAL PROTEIN (Dip) 1+ mg/dl (NEGATIVE); UR UROBILINOGEN (Dip) 1+ mg/dL (NEGATIVE)
[2017-02-01 23:18] LABS: BARBITURATES Positive (NEGATIVE); CANNABINOIDS Positive (NEGATIVE)
[2017-02-01 23:22] LABS: BENZODIAZEPINES Negative (NEGATIVE); COCAINE Negative (NEGATIVE); OPIATES Positive (NEGATIVE)
[2017-02-01 23:30] LABS: PROTEIN/CREAT RATIO 0.08 RATIO
[2017-02-02] VITALS (13 sets, daily range): BP systolic 83–107; BP diastolic 51–70; PULSE 69–90; RESP 16–22
[2017-02-02] MEDS: ACCU-CHEK XX SCH ×2 (01:54→22:08)
--- NOTE | 2017-02-02 03:58 | CONS ---
DATE OF ADMISSION: 01/30/2017 DATE OF CONSULTATION: 02/01/2017 PULMONARY CONSULTATION REASON FOR CONSULTATION: Shortness of breath. Thank you, Dr. Bill Phan for this consultation. HISTORY OF PRESENT ILLNESS: This is a morbidly obese young lady recently admitted on 01/30/2017 with worsening shortness of breath, orthopnea, and PND. She has a remote history of pulmonary embolus. In addition, she says she had a history of sleep apnea, but has not been on CPAP machine for several years when she moved home. Initial workup showed no evidence of deep vein thrombosis; however, the patient did have elevated BUN and creatinine, hemoglobin of 9.4 with a white count of 11.0. CT scan cannot be performed given the patient's body habitus. PHYSICAL EXAMINATION: GENERAL APPEARANCE: On examination, morbidly obese lady. Appears comfortable, in no acute distress. VITAL SIGNS: Currently afebrile. Pulse is 80. Blood pressure 115/66. O2 sat 96 percent on 4 L nasal cannula. NECK: Supple. No JVD, no lymphadenopathy. CARDIAC: S1, S2. No added sounds or murmurs. CHEST: Diminished air entry bilaterally. ABDOMEN: Soft, nontender. No guarding or rebound. EXTREMITIES: No cyanosis, clubbing or edema. NEUROLOGIC: Grossly intact. LABORATORY: As stated. ASSESSMENT: 1. Hypoxemia. Likely multifactorial. Most certainly has alveolar hypoventilation secondary to morbid obesity with probable obstructive lung disease. 2. History of pulmonary embolism. Unclear whether she has a new pulmonary embolus at this point. D-dimer can be elevated for multiple reasons and a positive D-dimer is nonspecific. Lower extremity Dopplers are negative for deep vein thrombosis. The patient is too large for ventilation-perfusion scan and CT angiogram. 3. History of psychiatric disorder. 4. Probable underlying obstructive sleep apnea. PLAN: 1. Trial of nocturnal BiPAP. 2. Continue blood pressure control. 3. Encourage incentive spirometry and ambulation. 4. DVT and GI prophylaxes. Dictated By: Gavin Nicole MD /shanai/baltazar /Document#: [id number]
[2017-02-02] MEDS: HEPARIN 5,000 UNIT/0.5 ML VIAL SC SCH ×3 (06:16→22:00)
[2017-02-02 07:07] LABS: BASOPHILS % 0.3 % (0.0-2.0); EOSINOPHILS # 0.2 10^3/ul (0.0-0.5); EOSINOPHILS % 1.3 % (0.0-7.0); HEMATOCRIT 31.6 % (37.0-47.0); HEMOGLOBIN 9.2 g/dl (12.0-16.0); LYMPHOCYTES # 1.9 10^3/ul (0.8-2.9); MEAN CORPUSCULAR HEMOGLOBIN 22.5 pg (29.0-33.0); MEAN CORPUSCULAR HGB CONC 29.1 g/dl (32.0-37.0); MEAN CORPUSCULAR VOLUME 77.5 fl (82.0-101.0); MEAN PLATELET VOLUME 9.7 fl (7.4-10.4); MONOCYTE # 0.9 10^3/ul (0.3-0.9); MONOCYTES % 7.6 % (0.0-11.0); NEUTROPHILS % 73.2 % (39.0-77.0); PLATELET COUNT 449 10^3/UL (140-415); RED BLOOD COUNT 4.08 10^6/ul (4.20-5.40); RED CELL DISTRIBUTION WIDTH 16.8 % (11.5-14.5); WHITE BLOOD COUNT 11.2 10^3/ul (4.8-10.8)
[2017-02-02 07:19] LABS: CREATININE 1.97 mg/dl (0.44-1.00); POTASSIUM 4.6 mmol/L (3.5-5.1)
[2017-02-02 07:22] LABS: MAGNESIUM 2.3 mg/dl (1.7-2.5); PHOSPHORUS 6.1 mg/dl (2.5-4.9)
[2017-02-02] MEDS: INSULIN ASPART [NOVOLOG] 3 ML PEN SC SCH ×4 (07:55→21:00)
[2017-02-02] MEDS: COLCHICINE 0.6 MG TAB PO SCH (09:00)
[2017-02-02] MEDS: DOCUSATE SODIUM 100 MG CAP PO SCH ×3 (09:00→21:00)
[2017-02-02] MEDS: METOPROLOL 25 MG TAB PO SCH (09:00)
[2017-02-02] MEDS: GABAPENTIN 100 MG CAP PO SCH ×2 (09:47→21:43)
--- NOTE | 2017-02-02 09:54 | PN ---
Date/Time of Note Date/Time of Note DATE: 02/02/17 TIME: 09:52 Assessment/Plan VTE Prophylaxis VTE Prophylaxis Intervention: heparin Lines/Catheters IV [facility]from [facility] Saline Lock Urinary Cath still in place: No Assessment/Plan Chief Complaint/Hosp Course 1. Chest pain. Serial troponins negative. 2D echocardiogram showing moderate sized pericardial effusion. This could be the reason for her underlying chest pain. Cardiology following the patient. 2. Moderate pericardial effusion. Status post evaluation by cardiac surgery. Nonsurgical management as per cardiac surgery. 3. Acute respiratory failure. Hypoxic and hypercapnic. The patient has known history of pulmonary embolism. The patient not a candidate for a CT angiogram because of the heavy weight. VQ scan has been ordered. The patient could not tolerate VQ scan because of orthopnea. B/L LE venous Doppler negative for any DVT . Being followed by Pulmonology. 4. Essential hypertension. Continue antihypertensives. 5. Depression. Continue antidepressants. 6. Type 2 diabetes mellitus. Will hold the metformin because of worsening renal function. Continue sliding scale insulin. 7. Acute kidney injury. Will hold her nephrotoxic medications. Nephrology following. 8. Microcytic, hypochromic anemia. Underlying iron deficiency. Continue the patient on iron supplements. 9. Obesity. BMI of 46.3 kg/m. Weight reduction advised. 10. Fluids, electrolytes, and nutrition. Carbohydrate controlled diet. 11. DVT prophylaxis. SQ heparin. 12. Plan. Continue current management. Hold nephrotoxic medications. Await further recommendations from consultants. Case discussed with Dr. Hernandez. Problems: Subjective 24 Hr Interval Summary Free Text/Dictation Denies any dyspnea. Complains of chest discomfort. Exam/Review of Systems Vital Signs Vitals Vital Signs Date Time Temp Pulse Resp B/P Pulse Ox O2 Delivery O2 Flow Rate FiO2 02/02/17 08:49 Nasal Cannula 2.0 02/02/17 08:24 70 02/02/17 08:14 97.9 22 99/57 98 02/02/17 00:05 30 Intake and Output 02/01/17 02/01/17 02/02/17 15:00 23:00 07:00 Intake Total 550 ml 600 ml Balance 550 ml 600 ml Exam General: Morbidly obese 46 year-old female lying in bed in no apparent distress. HEENT: Normocephalic, atraumatic. Eyes: Anicteric sclerae, conjunctivae clear. ENT: Nasal septum midline, oral mucosa moist. Neck supple, no JVD noticed. Respiratory: Bilaterally diminished breath sounds. No use of accessory muscles of respiration. No adventitious breath sounds. Cardiovascular: S1, S2 heard. Distant heart sounds Abdomen: Soft, nontender, and nondistended. Bowel sounds positive in all 4 quadrants. Genitourinary: Deferred. Extremities: No cyanosis, no clubbing, no edema. Peripheral pulses palpable. Neurologic: Cranial nerves II through XII grossly intact. The patient is awake, alert, and oriented. Skin: Normal skin turgor. No skin rashes. Results Result Diagram: 02/02/17 0551 02/02/17 0551 Results 24 hrs Laboratory Tests Test 02/01/17 12:15 02/01/17 17:15 02/01/17 20:31 02/01/17 22:00 Blood Gas Specimen Source Blood arterial Arterial Blood Date Drawn 02/01/2017 12:46:00 PM Arterial Blood pH (Temp corrected) 7.301 L Arterial Blood pCO2 (Temp correct) 53.7 H Arterial Blood pO2 (Temp corrected) 83.5 Arterial Blood HCO3 25.9 Arterial Blood Base Excess -1.0 Arterial Blood Oxygen Saturation 95.4 Kareem Test ACCEPTAB Arterial Blood Gas Puncture Site Left Radial Arterial Blood Carboxyhemoglobin 0.3 Arterial Blood Methemoglobin 0.1 Blood Gas A-a O2 Differential 89.1 H Oxyhemoglobin Percent 95.0 Total Hemoglobin 10.7 L Blood Gas Temperature 37.0 Blood Gas Modality NASAL CANNULA FiO2 33.0 Blood Gas Notified Whom R Hettiarachchi Blood Gas Notified Time 02/01/2017 12:57:00 PM Bedside Glucose 110 119 126 Urine Color SO Urine Clarity SLIGHTLY CLOUDY A Urine pH 5.0 Urine Specific [place] 1.019 Urine Ketones NEGATIVE Urine Nitrite NEGATIVE Urine Bilirubin NEGATIVE Urine Urobilinogen 1+ H Urine Leukocyte Esterase TRACE A Urine Microscopic RBC 2 Urine Microscopic WBC 19 H Urine Squamous Epithelial Cells FEW Urine Mucus FEW A Urine Hemoglobin NEGATIVE Urine Random Creatinine 407.12 H Urine Protein/Creatinine Ratio 0.08 Urine Glucose NEGATIVE Urine Total Protein 34.0 H Urine Opiates Screen Positive Urine Barbiturates Positive Urine Amphetamines Screen Negative Urine Benzodiazepines Screen Negative Urine Cocaine Screen Negative Urine Cannabinoids Positive Test 02/02/17 05:51 02/02/17 08:15 White Blood Count 11.2 H Red Blood Count 4.08 L Hemoglobin 9.2 L Hematocrit 31.6 L Mean Corpuscular Volume 77.5 L Mean Corpuscular Hemoglobin 22.5 L Mean Corpuscular Hemoglobin Concent 29.1 L Red Cell Distribution Width 16.8 H Platelet Count 449 H Mean Platelet Volume 9.7 Neutrophils % 73.2 Lymphocytes % 17.0 Monocytes % 7.6 Eosinophils % 1.3 Basophils % 0.3 Nucleated Red Blood Cells % 0.0 Neutrophils # (Manual) 8 H Lymphocytes # 1.9 Monocytes # 0.9 Eosinophils # 0.2 Basophils # 0.0 Nucleated Red Blood Cells # 0.0 Erythrocyte Sedimentation Rate 68 H Sodium Level 133 L Potassium Level 4.6 Chloride Level 98 Carbon Dioxide Level 29 Anion Gap 11 # Blood Urea Nitrogen 50 H Creatinine 1.97 H Glucose Level 120 Calcium Level 9.0 Phosphorus Level 6.1 H Magnesium Level 2.3 C-Reactive Protein 5.4 H Bedside Glucose 128 Medications Medications Current Medications Lorazepam (Ativan) 0.5 mg Q8H PRN PO ANXIETY; Start 01/30/17 at 05:00 Ondansetron HCl (Zofran Inj) 4 mg Q6H PRN IV NAUSEA AND/OR VOMITING Last administered on 02/01/17 20:56; Admin Dose 4 MG; Start 01/30/17 at 05:00 Acetaminophen (Tylenol Tab) 650 mg Q6H PRN PO PAIN LEVEL 1-3 OR FEVER Last administered on 01/30/17 12:04; Admin Dose 650 MG; Start 01/30/17 at 05:00 Diagnostic Test (Pha) (Accu-Chek) 1 ea 02 XX ; Start 01/31/17 at 02:00 Alprazolam (Xanax) 1 mg QHS PRN PO ANXIETY; Start 01/30/17 at 05:00 Benazepril HCl (Lotensin) 40 mg DAILY PO Last administered on 01/31/17 08:08; Admin Dose 40 MG; Start 01/30/17 at 09:00; Status Future Hold Docusate Sodium (Colace) 100 mg BID PO Last administered on 02/01/17 20:32; Admin Dose 100 MG; Start 01/30/17 at 09:00 Gabapentin (Neurontin) 100 mg BID PO Last administered on 02/02/17 09:47; Admin Dose 100 MG; Start 01/30/17 at 09:00 Acetaminophen/ Hydrocodone Bitart ([place] (10/325)) 1 tab Q6H PRN PO PAIN Last administered on 02/01/17 20:33; Admin Dose 1 TAB; Start 01/30/17 at 05:00 Miscellaneous Information 1 ea NOTE XX ; Start 01/30/17 at 05:00 Glucose (Glutose) 15 gm Q15M PRN PO DECREASED GLUCOSE; Start 01/30/17 at 05:00 Glucose (Glutose) 22.5 gm Q15M PRN PO DECREASED GLUCOSE; Start 01/30/17 at 05: 00 Dextrose (D50w Syringe) 25 ml Q15M PRN IV DECREASED GLUCOSE; Start 01/30/17 at 05:00 Dextrose (D50w Syringe) 50 ml Q15M PRN IV DECREASED GLUCOSE; Start 01/30/17 at 05:00 Glucagon (Glucagen) 1 mg Q15M PRN IM DECREASED GLUCOSE; Start 01/30/17 at 05:00 Glucose (Glutose) 15 gm Q15M PRN BUCCAL DECREASED GLUCOSE; Start 01/30/17 at 05 :00 Nitroglycerin (Nitroglycerin (Sl Tab) 0.4 Mg) 1 tab [id number] PRN SL CHEST PAIN ; Start 01/30/17 at 05:30 Indomethacin (Indocin) 25 mg TID PO Last administered on 02/01/17 11:18; Admin Dose 25 MG; Start 02/01/17 at 09:00; Status Future Hold Colchicine (Colchicine) 0.6 mg BID PO Last administered on 02/01/17 20:32; Admin Dose 0.6 MG; Start 02/01/17 at 09:00 Metoprolol Tartrate (Lopressor) 12.5 mg BID PO ; Start 02/01/17 at 21:00 Heparin Sodium (Porcine) (Heparin (5000 Units/0.5 ml)) 5,000 unit Q8 SC Last administered on 02/02/17 06:16; Admin Dose 5,000 UNIT; Start 02/01/17 at 18:00 SOLITARIO LAMBERT NP Feb 02, 2017 09:54
--- NOTE | 2017-02-02 11:20 | PN ---
DATE: 02/02/2017 SUBJECTIVE DATA: Miss. Cheney's condition is stable. The patient still complains of mild shortness of breath. Complains of cough without any sputum production or wheezing. Denies any chest pain, nausea, vomiting. OBJECTIVE DATA: GENERAL: Patient is a young woman, morbidly obese. Currently in no distress. Awake and alert. VITAL SIGNS: Temperature 98.8 degrees Fahrenheit, respiratory rate is 18 per minute, heart rate 80 per minute, blood pressure 130/70. O2 saturation is 95 percent on 2 liters nasal cannula. Urine output is adequate. NECK: Supple neck. No JVD. No lymphadenopathy. Midline trachea. No thyromegaly. No neck bruits. HEENT: The patient has fair dentition. Pupils are midsize and reactive to light bilaterally. CHEST: Clear to auscultation. HEART: S1-S2 noted with no murmurs. Regular rhythm. ABDOMEN: Soft, nondistended. No organomegaly. Bowel sounds audible. EXTREMITIES: No peripheral edema. Pulses 1+ bilaterally. NEUROLOGIC: No focal deficit. MEDICATION: Medications were reviewed. ASSESSMENT: 1. Patient admitted for shortness of breath, likely from some element of congestive heart failure, with negative lower extremity ultrasound for deep venous thrombosis. 2. Patient with a prior history of pulmonary embolus. 3. Morbid obesity. 4. Likely underlying sleep apnea. The patient has been tested before and according to her, she was given a CPAP machine but somehow she lost it. 5. Mild congestive heart failure, with interval improvement. 6. History of gout, diabetes, hypertension. RECOMMENDATIONS: Continue current supportive care. Dictated By: Lei Davison MD /shania/hiral /Document#: [id number]
[2017-02-02] MEDS ORDERED: METOPROLOL 25 MG TAB PO PRN (12:00)
--- NOTE | 2017-02-02 13:19 | PN ---
Date/Time of Note Date/Time of Note DATE: 02/02/17 TIME: 13:18 Assessment/Plan VTE Prophylaxis VTE Prophylaxis Intervention: SCD's Lines/Catheters IV [facility] Saline Lock Urinary Cath still in place: No Assessment/Plan Chief Complaint/Hosp Course This is a 46-year-old morbidly obese female with a history of PE 9 years ago, depression/anxiety, recurrent lower extremity cellulitis. Patient presented to the ER complaining of shortness of breath and chest pain which started yesterday. Symptoms are worse with exertion. Chest pain mainly occurs when taking a deep breath. Denied fever/chills, nausea/vomiting, palpitation, lightheadedness. She has no hx of cancer, no overt chf and has some orthopnea but not hypotensive Problems: Assessment/Plan Mod-Large PEF Possible pericarditis SOB Atypical chest pain hx of PE Obesity -seen by dr Ashby and felt that given clinically stable with no clinical signs of tamponade, risk>benefit for pericardial window -rx indocin and colchcine - recheck echo in few days -atypical chest pain and unlikey ACS -echo reviewed Subjective 24 Hr Interval Summary Free Text/Dictation the apteint with no cahmge Exam/Review of Systems Vital Signs Vitals Vital Signs Date Time Temp Pulse Resp B/P Pulse Ox O2 Delivery O2 Flow Rate FiO2 02/02/17 12:50 98.3 84 18 83/52 96 02/02/17 12:10 4.0 02/02/17 08:49 Nasal Cannula 02/02/17 00:05 30 Intake and Output 02/01/17 02/01/17 02/02/17 15:00 23:00 07:00 Intake Total 550 ml 600 ml Balance 550 ml 600 ml Results Result Diagram: 02/02/17 0551 02/02/17 0551 Results 24 hrs Laboratory Tests Test 02/01/17 17:15 02/01/17 20:31 02/01/17 22:00 02/02/17 05:51 Bedside Glucose 119 126 Urine Color SO Urine Clarity SLIGHTLY CLOUDY A Urine pH 5.0 Urine Specific [place] 1.019 Urine Ketones NEGATIVE Urine Nitrite NEGATIVE Urine Bilirubin NEGATIVE Urine Urobilinogen 1+ H Urine Leukocyte Esterase TRACE A Urine Microscopic RBC 2 Urine Microscopic WBC 19 H Urine Squamous Epithelial Cells FEW Urine Mucus FEW A Urine Hemoglobin NEGATIVE Urine Random Creatinine 407.12 H Urine Protein/Creatinine Ratio 0.08 Urine Glucose NEGATIVE Urine Total Protein 34.0 H Urine Opiates Screen Positive Urine Barbiturates Positive Urine Amphetamines Screen Negative Urine Benzodiazepines Screen Negative Urine Cocaine Screen Negative Urine Cannabinoids Positive White Blood Count 11.2 H Red Blood Count 4.08 L Hemoglobin 9.2 L Hematocrit 31.6 L Mean Corpuscular Volume 77.5 L Mean Corpuscular Hemoglobin 22.5 L Mean Corpuscular Hemoglobin Concent 29.1 L Red Cell Distribution Width 16.8 H Platelet Count 449 H Mean Platelet Volume 9.7 Neutrophils % 73.2 Lymphocytes % 17.0 Monocytes % 7.6 Eosinophils % 1.3 Basophils % 0.3 Nucleated Red Blood Cells % 0.0 Neutrophils # (Manual) 8 H Lymphocytes # 1.9 Monocytes # 0.9 Eosinophils # 0.2 Basophils # 0.0 Nucleated Red Blood Cells # 0.0 Erythrocyte Sedimentation Rate 68 H Sodium Level 133 L Potassium Level 4.6 Chloride Level 98 Carbon Dioxide Level 29 Anion Gap 11 # Blood Urea Nitrogen 50 H Creatinine 1.97 H Glucose Level 120 Calcium Level 9.0 Phosphorus Level 6.1 H Magnesium Level 2.3 C-Reactive Protein 5.4 H Test 02/02/17 08:15 02/02/17 13:00 Bedside Glucose 128 135 Medications Medications Current Medications Lorazepam (Ativan) 0.5 mg Q8H PRN PO ANXIETY; Start 01/30/17 at 05:00 Ondansetron HCl (Zofran Inj) 4 mg Q6H PRN IV NAUSEA AND/OR VOMITING Last administered on 02/01/17 20:56; Admin Dose 4 MG; Start 01/30/17 at 05:00 Acetaminophen (Tylenol Tab) 650 mg Q6H PRN PO PAIN LEVEL 1-3 OR FEVER Last administered on 01/30/17 12:04; Admin Dose 650 MG; Start 01/30/17 at 05:00 Diagnostic Test (Pha) (Accu-Chek) 1 ea 02 XX ; Start 01/31/17 at 02:00 Alprazolam (Xanax) 1 mg QHS PRN PO ANXIETY; Start 01/30/17 at 05:00 Benazepril HCl (Lotensin) 40 mg DAILY PO Last administered on 01/31/17 08:08; Admin Dose 40 MG; Start 01/30/17 at 09:00; Status Future Hold Docusate Sodium (Colace) 100 mg BID PO Last administered on 02/02/17 10:02; Admin Dose 100 MG; Start 01/30/17 at 09:00 Gabapentin (Neurontin) 100 mg BID PO Last administered on 02/02/17 09:47; Admin Dose 100 MG; Start 01/30/17 at 09:00 Acetaminophen/ Hydrocodone Bitart ([place] (10/325)) 1 tab Q6H PRN PO PAIN Last administered on 02/01/17 20:33; Admin Dose 1 TAB; Start 01/30/17 at 05:00 Miscellaneous Information 1 ea NOTE XX ; Start 01/30/17 at 05:00 Glucose (Glutose) 15 gm Q15M PRN PO DECREASED GLUCOSE; Start 01/30/17 at 05:00 Glucose (Glutose) 22.5 gm Q15M PRN PO DECREASED GLUCOSE; Start 01/30/17 at 05: 00 Dextrose (D50w Syringe) 25 ml Q15M PRN IV DECREASED GLUCOSE; Start 01/30/17 at 05:00 Dextrose (D50w Syringe) 50 ml Q15M PRN IV DECREASED GLUCOSE; Start 01/30/17 at 05:00 Glucagon (Glucagen) 1 mg Q15M PRN IM DECREASED GLUCOSE; Start 01/30/17 at 05:00 Glucose (Glutose) 15 gm Q15M PRN BUCCAL DECREASED GLUCOSE; Start 01/30/17 at 05 :00 Nitroglycerin (Nitroglycerin (Sl Tab) 0.4 Mg) 1 tab [id number] PRN SL CHEST PAIN ; Start 01/30/17 at 05:30 Indomethacin (Indocin) 25 mg TID PO Last administered on 02/01/17 11:18; Admin Dose 25 MG; Start 02/01/17 at 09:00; Status Future Hold Colchicine (Colchicine) 0.6 mg BID PO Last administered on 02/01/17 20:32; Admin Dose 0.6 MG; Start 02/01/17 at 09:00 Heparin Sodium (Porcine) (Heparin (5000 Units/0.5 ml)) 5,000 unit Q8 SC Last administered on 02/02/17 06:16; Admin Dose 5,000 UNIT; Start 02/01/17 at 18:00 Metoprolol Tartrate (Lopressor) 12.5 mg BID PRN PO BP>130 systolic; Start 02/02 at 12:00 KOLBY KING MD Feb 02, 2017 13:19
[2017-02-02] MEDS: CALCIUM CARBONATE 500 MG CHEW TAB PO SCH ×2 (13:38→19:15)
[2017-02-02] MEDS ORDERED: HYDROmorphONE 1 MG/ML SYG IV STA (16:06)
[2017-02-02] MEDS ORDERED: PENDING SANTYL ORDER FOR WOUND CARE XX PRN (17:30)
[2017-02-02] MEDS: SOD CHLORIDE 0.9% 1,000 ML IV SCH ×2 (17:49→23:51)
[2017-02-02] MEDS: NYSTATIN 30 GM POWDER BTL TOP SCH (21:43)
[2017-02-02] MEDS: INDOMETHACIN 25 MG PO SCH (22:04)
[2017-02-03] VITALS (13 sets, daily range): BP systolic 115–128; BP diastolic 55–85; PULSE 73–94; RESP 18–20
[2017-02-03] MEDS: HEPARIN 5,000 UNIT/0.5 ML VIAL SC SCH ×3 (05:35→21:52)
--- NOTE | 2017-02-03 07:43 | PN ---
Date/Time of Note Date/Time of Note DATE: 02/03/17 TIME: 07:42 Assessment/Plan VTE Prophylaxis VTE Prophylaxis Intervention: SCD's Lines/Catheters IV Catheter Type (from Nrs): Saline Lock Urinary Cath still in place: No Assessment/Plan Chief Complaint/Hosp Course This is a 46-year-old morbidly obese female with a history of PE 9 years ago, depression/anxiety, recurrent lower extremity cellulitis. Patient presented to the ER complaining of shortness of breath and chest pain which started yesterday. Symptoms are worse with exertion. Chest pain mainly occurs when taking a deep breath. Denied fever/chills, nausea/vomiting, palpitation, lightheadedness. She has no hx of cancer, no overt chf and has some orthopnea but not hypotensive Problems: Assessment/Plan Mod-Large PEF Possible pericarditis SOB Atypical chest pain hx of PE Obesity -seen by dr Ashby and felt that given clinically stable with no clinical signs of tamponade, risk>benefit for pericardial window -rx indocin and colchcine - recheck echo in few days -atypical chest pain and unlikey ACS -echo in 2 days Subjective 24 Hr Interval Summary Free Text/Dictation the patient with no cardiac symptoms Exam/Review of Systems Vital Signs Vitals Vital Signs Date Time Temp Pulse Resp B/P Pulse Ox O2 Delivery O2 Flow Rate FiO2 02/03/17 07:11 98.2 79 19 122/55 95 02/02/17 21:49 4.0 02/02/17 20:00 Nasal Cannula 02/02/17 00:05 30 Intake and Output 02/02/17 02/02/17 02/03/17 15:00 23:00 07:00 Intake Total 750 ml 550 ml Balance 750 ml 550 ml Results Result Diagram: 02/02/17 0551 02/02/17 0551 Results 24 hrs Laboratory Tests Test 02/02/17 08:15 02/02/17 13:00 02/02/17 17:48 02/02/17 21:44 Bedside Glucose 128 135 116 125 Medications Medications Current Medications Lorazepam (Ativan) 0.5 mg Q8H PRN PO ANXIETY; Start 01/30/17 at 05:00 Ondansetron HCl (Zofran Inj) 4 mg Q6H PRN IV NAUSEA AND/OR VOMITING Last administered on 02/01/17t 20:56; Admin Dose 4 MG; Start 01/30/17 at 05:00 Acetaminophen (Tylenol Tab) 650 mg Q6H PRN PO PAIN LEVEL 1-3 OR FEVER Last administered on 01/30/17 12:04; Admin Dose 650 MG; Start 01/30/17 at 05:00 Diagnostic Test (Pha) (Accu-Chek) 1 ea 02 XX ; Start 01/31/17 at 02:00 Alprazolam (Xanax) 1 mg QHS PRN PO ANXIETY; Start 01/30/17 at 05:00 Benazepril HCl (Lotensin) 40 mg DAILY PO Last administered on 01/31/17 08:08; Admin Dose 40 MG; Start 01/30/17 at 09:00; Status Future Hold Docusate Sodium (Colace) 100 mg BID PO Last administered on 02/02/17 10:02; Admin Dose 100 MG; Start 01/30/17 at 09:00 Gabapentin (Neurontin) 100 mg BID PO Last administered on 02/02/17 21:43; Admin Dose 100 MG; Start 01/30/17 at 09:00 Acetaminophen/ Hydrocodone Bitart ([place] (10/325)) 1 tab Q6H PRN PO PAIN Last administered on 02/01/17 20:33; Admin Dose 1 TAB; Start 01/30/17 at 05:00 Miscellaneous Information 1 ea NOTE XX ; Start 01/30/17 at 05:00 Glucose (Glutose) 15 gm Q15M PRN PO DECREASED GLUCOSE; Start 01/30/17 at 05:00 Glucose (Glutose) 22.5 gm Q15M PRN PO DECREASED GLUCOSE; Start 01/30/17 at 05: 00 Dextrose (D50w Syringe) 25 ml Q15M PRN IV DECREASED GLUCOSE; Start 01/30/17 at 05:00 Dextrose (D50w Syringe) 50 ml Q15M PRN IV DECREASED GLUCOSE; Start 01/30/17 at 05:00 Glucagon (Glucagen) 1 mg Q15M PRN IM DECREASED GLUCOSE; Start 01/30/17 at 05:00 Glucose (Glutose) 15 gm Q15M PRN BUCCAL DECREASED GLUCOSE; Start 01/30/17 at 05 :00 Nitroglycerin (Nitroglycerin (Sl Tab) 0.4 Mg) 1 tab [id number] PRN SL CHEST PAIN ; Start 01/30/17 at 05:30 Heparin Sodium (Porcine) (Heparin (5000 Units/0.5 ml)) 5,000 unit Q8 SC Last administered on 02/03/17 05:35; Admin Dose 5,000 UNIT; Start 02/01/17 at 18:00 Metoprolol Tartrate 12.5 mg 12.5 mg BID PRN PO BP>130 systolic; Start 02/02/17 at 12:00 Sodium Chloride (NS) 1,000 ml @ 50 mls/hr Q20H IV Last administered on 23:51; Admin Dose 50 MLS/HR; Start 02/02/17 at 17:00; Stop 02/03/17 at 16: 59 Colchicine (Colchicine) 0.6 mg DAILY PO ; Start 02/03/17 at 09:00 Indomethacin (Indocin) 25 mg BID PO Last administered on 02/02/17 22:04; Admin Dose 25 MG; Start 02/02/17 at 21:00 Miscellaneous Information (Pending [facility] Order For Wound Care) This patient deleon... PRN PRN XX WOUND CARE; Start 02/02/17 at 17:30 Nystatin (Nystatin Powder) 1 applic BID TOP Last administered on 02/02/17 21: 43; Admin Dose 1 APPLIC; Start 02/02/17 at 21:00 KOLBY KING MD Feb 03, 2017 07:43
[2017-02-03] MEDS: INSULIN ASPART [NOVOLOG] 3 ML PEN SC SCH ×4 (07:55→21:00)
[2017-02-03 08:45] LABS: ALBUMIN 3.7 g/dl (3.3-4.9); ALBUMIN/GLOBULIN RATIO 0.84; BILIRUBIN,INDIRECT 0.2 mg/dl (0-1.1); BILIRUBIN,TOTAL 0.2 mg/dl (0.2-1.3); CALCIUM 8.8 mg/dl (8.4-10.2); CREATININE 1.64 mg/dl (0.44-1.00); POTASSIUM 5.1 mmol/L (3.5-5.1); TOTAL PROTEIN 8.1 g/dl (6.1-8.1)
[2017-02-03] MEDS: NYSTATIN 30 GM POWDER BTL TOP SCH ×2 (09:00→21:23)
[2017-02-03] MEDS: DOCUSATE SODIUM 100 MG CAP PO SCH ×2 (09:00→21:22)
[2017-02-03] MEDS: INDOMETHACIN 25 MG PO SCH ×2 (09:24→21:00)
[2017-02-03] MEDS: CALCIUM CARBONATE 500 MG CHEW TAB PO SCH ×3 (09:24→18:55)
[2017-02-03] MEDS: COLCHICINE 0.6 MG TAB PO SCH (09:25)
[2017-02-03] MEDS: GABAPENTIN 100 MG CAP PO SCH ×2 (09:25→21:23)
--- NOTE | 2017-02-03 11:29 | CONS ---
Date/Time of Note Date/Time of Note DATE: 02/03/17 TIME: 11:28 Consult Date/Type/Reason Admit Date/Time Jan 30, 2017 at 02:47 Initial Consult Date 02/01/17 Type of Consultation: Pulmonary Ordering Provider: SOLITARIO LAMBERT [employer] Subjective Comfortable sitting up in bed. States she is ambulating without assistance. Not tolerating current BiPAP settings. Objective Vital Signs Date Time Temp Pulse Resp B/P Pulse Ox O2 Delivery O2 Flow Rate FiO2 02/03/17 08:17 74 02/03/17 07:11 98.2 19 122/55 95 02/02/17 21:49 4.0 02/02/17 20:00 Nasal Cannula 02/02/17 00:05 30 Intake and Output 02/02/17 02/02/17 02/03/17 14:59 22:59 06:59 Intake Total 750 ml 550 ml Balance 750 ml 550 ml Exam GENERAL APPEARANCE: On examination, morbidly obese lady. Appears comfortable, in no acute distress. NECK: Supple. No JVD, no lymphadenopathy. CARDIAC: S1, S2. No added sounds or murmurs. CHEST: Diminished air entry bilaterally. ABDOMEN: Soft, nontender. No guarding or rebound. EXTREMITIES: No cyanosis, clubbing or edema. NEUROLOGIC: Grossly intact. Results/Medications Result Diagram: 02/02/17 0551 02/03/17 0642 Results 24 hrs Laboratory Tests Test 02/02/17 13:00 02/02/17 17:48 02/02/17 21:44 02/03/17 06:42 Bedside Glucose 135 116 125 Sodium Level 133 L Potassium Level 5.1 Chloride Level 97 Carbon Dioxide Level 22 Anion Gap 19 #H Blood Urea Nitrogen 51 H Creatinine 1.64 H Glucose Level 118 Calcium Level 8.8 Total Bilirubin 0.2 Direct Bilirubin 0.00 Indirect Bilirubin 0.2 Aspartate Amino Transf (AST/SGOT) 24 Alanine Aminotransferase (ALT/SGPT) 24 Alkaline Phosphatase 100 Total Protein 8.1 Albumin 3.7 Globulin 4.40 H Albumin/Globulin Ratio 0.84 Test 02/03/17 08:16 Bedside Glucose 133 Medications Current Medications Lorazepam (Ativan) 0.5 mg Q8H PRN PO ANXIETY; Start 01/30/17 at 05:00 Ondansetron HCl (Zofran Inj) 4 mg Q6H PRN IV NAUSEA AND/OR VOMITING Last administered on 02/01/17 20:56; Admin Dose 4 MG; Start 01/30/17 at 05:00 Acetaminophen (Tylenol Tab) 650 mg Q6H PRN PO PAIN LEVEL 1-3 OR FEVER Last administered on 01/30/17 12:04; Admin Dose 650 MG; Start 01/30/17 at 05:00 Diagnostic Test (Pha) (Accu-Chek) 1 ea 02 XX ; Start 01/31/17 at 02:00 Alprazolam (Xanax) 1 mg QHS PRN PO ANXIETY; Start 01/30/17 at 05:00 Benazepril HCl (Lotensin) 40 mg DAILY PO Last administered on 01/31/17 08:08; Admin Dose 40 MG; Start 01/30/17 at 09:00; Status Future Hold Docusate Sodium (Colace) 100 mg BID PO Last administered on 02/02/17 10:02; Admin Dose 100 MG; Start 01/30/17 at 09:00 Gabapentin (Neurontin) 100 mg BID PO Last administered on 02/03/17 09:25; Admin Dose 100 MG; Start 01/30/17 at 09:00 Acetaminophen/ Hydrocodone Bitart ([place] (10/325)) 1 tab Q6H PRN PO PAIN Last administered on 02/01/17 20:33; Admin Dose 1 TAB; Start 01/30/17 at 05:00 Miscellaneous Information 1 ea NOTE XX ; Start 01/30/17 at 05:00 Glucose (Glutose) 15 gm Q15M PRN PO DECREASED GLUCOSE; Start 01/30/17 at 05:00 Glucose (Glutose) 22.5 gm Q15M PRN PO DECREASED GLUCOSE; Start 01/30/17 at 05: 00 Dextrose (D50w Syringe) 25 ml Q15M PRN IV DECREASED GLUCOSE; Start 01/30/17 at 05:00 Dextrose (D50w Syringe) 50 ml Q15M PRN IV DECREASED GLUCOSE; Start 01/30/17 at 05:00 Glucagon (Glucagen) 1 mg Q15M PRN IM DECREASED GLUCOSE; Start 01/30/17 at 05:00 Glucose (Glutose) 15 gm Q15M PRN BUCCAL DECREASED GLUCOSE; Start 01/30/17 at 05 :00 Nitroglycerin (Nitroglycerin (Sl Tab) 0.4 Mg) 1 tab [id number] PRN SL CHEST PAIN ; Start 01/30/17 at 05:30 Heparin Sodium (Porcine) (Heparin (5000 Units/0.5 ml)) 5,000 unit Q8 SC Last administered on 02/03/17 05:35; Admin Dose 5,000 UNIT; Start 02/01/17 at 18:00 Metoprolol Tartrate 12.5 mg 12.5 mg BID PRN PO BP>130 systolic; Start 02/02/17 at 12:00 Sodium Chloride (NS) 1,000 ml @ 50 mls/hr Q20H IV Last administered on 23:51; Admin Dose 50 MLS/HR; Start 02/02/17 at 17:00; Stop 02/03/17 at 16: 59 Colchicine (Colchicine) 0.6 mg DAILY PO Last administered on 02/03/17 09:25; Admin Dose 0.6 MG; Start 02/03/17 at 09:00 Indomethacin (Indocin) 25 mg BID PO Last administered on 02/03/17 09:24; Admin Dose 25 MG; Start 02/02/17 at 21:00 [facility] This patient deleon... PRN PRN XX WOUND CARE; Start 02/02/17 at 17:30 Nystatin (Nystatin Powder) 1 applic BID TOP Last administered on 02/02/17 21: 43; Admin Dose 1 APPLIC; Start 02/02/17 at 21:00 Assessment/Plan Chief Complaint/Hosp Course ASSESSMENT: 1. Hypoxemia. Likely multifactorial. Most certainly has alveolar hypoventilation secondary to morbid obesity with probable obstructive lung disease. 2. History of pulmonary embolism. Unclear whether she has a new pulmonary embolus at this point. D-dimer can be elevated for multiple reasons and a positive D-dimer is nonspecific. Lower extremity Dopplers are negative for deep vein thrombosis. The patient is too large for ventilation-perfusion scan and CT angiogram. 3. History of psychiatric disorder. 4. Probable underlying obstructive sleep apnea. 5. Possible pericardial effusion. Repeat echocardiogram pending. PLAN: 1. Trial of nocturnal BiPAP. Will need outpatient sleep study. We will also need supplemental O2 discharge. 2. Continue blood pressure control. 3. Encourage incentive spirometry and ambulation. 4. DVT and GI prophylaxes. Problems: TALIA ACEVEDO MD, [facility] Feb 03, 2017 11:29
[2017-02-03] MEDS ORDERED: HYDROmorphONE 1 MG/ML SYG IV STA (11:55)
[2017-02-03] MEDS: SOD CHLORIDE 0.9% 1,000 ML IV SCH (13:00)
--- NOTE | 2017-02-03 13:52 | PN ---
Date/Time of Note Date/Time of Note DATE: 02/03/17 TIME: 13:50 Assessment/Plan VTE Prophylaxis VTE Prophylaxis Intervention: heparin Lines/Catheters IV [facility] [place] [facility] Urinary Cath still in place: No Assessment/Plan Chief Complaint/Hosp Course 1. Chest pain. Serial troponins negative. 2D echocardiogram showing moderate sized pleural effusion. This could be the reason for her underlying chest pain. Cardiology following the patient. 2. Moderate pericardial effusion. Status post evaluation by cardiac surgery. Nonsurgical management as per cardiac surgery. 3. Acute respiratory failure. Hypoxic and hypercapnic. The patient has known history of pulmonary embolism. The patient not a candidate for a CT angiogram because of the heavy weight. VQ scan has been ordered. The patient could not tolerate VQ scan because of orthopnea. B/L LE venous Doppler negative for any DVT . Being followed by Pulmonology. 4. Essential hypertension. Continue antihypertensives. 5. Depression. Continue antidepressants. 6. Type 2 diabetes mellitus. Will hold the metformin because of worsening renal function. Continue sliding scale insulin. 7. Acute kidney injury. Will hold her nephrotoxic medications. Nephrology following. 8. Microcytic, hypochromic anemia. Underlying iron deficiency. Continue the patient on iron supplements. 9. Obesity. BMI of 46.3 kg/m. Weight reduction advised. 10. Fluids, electrolytes, and nutrition. Carbohydrate controlled diet. 11. DVT prophylaxis. SQ heparin. 12. Plan. Continue current management. Await further recommendations from consultants. Plan for repeat 2D echocardiogram. Case discussed with Dr. Hernandez. Problems: Subjective 24 Hr Interval Summary Free Text/Dictation Feeling "so-so." Exam/Review of Systems Vital Signs Vitals Vital Signs Date Time Temp Pulse Resp B/P Pulse Ox O2 Delivery O2 Flow Rate FiO2 02/03/17 12:12 82 02/03/17 11:35 97.6 19 121/85 97 02/02/17 21:49 4.0 02/02/17 20:00 Nasal Cannula 02/02/17 00:05 30 Intake and Output 02/02/17 02/02/17 02/03/17 15:00 23:00 07:00 Intake Total 750 ml 550 ml Balance 750 ml 550 ml Exam General: Morbidly obese 46 year-old female lying in bed in no apparent distress. HEENT: Normocephalic, atraumatic. Eyes: Anicteric sclerae, conjunctivae clear. ENT: Nasal septum midline, oral mucosa moist. Neck supple, no JVD noticed. Respiratory: Bilaterally diminished breath sounds. No use of accessory muscles of respiration. No adventitious breath sounds. Cardiovascular: S1, S2 heard. Distant heart sounds Abdomen: Soft, nontender, and nondistended. Bowel sounds positive in all 4 quadrants. Genitourinary: Deferred. Extremities: No cyanosis, no clubbing, no edema. Peripheral pulses palpable. Neurologic: Cranial nerves II through XII grossly intact. The patient is awake, alert, and oriented. Skin: Normal skin turgor. No skin rashes. Results Result Diagram: 02/02/17 0551 02/03/17 0642 Results 24 hrs Laboratory Tests Test 02/02/17 17:48 02/02/17 21:44 02/03/17 06:42 02/03/17 08:16 Bedside Glucose 116 125 133 Sodium Level 133 L Potassium Level 5.1 Chloride Level 97 Carbon Dioxide Level 22 Anion Gap 19 #H Blood Urea Nitrogen 51 H Creatinine 1.64 H Glucose Level 118 Calcium Level 8.8 Total Bilirubin 0.2 Direct Bilirubin 0.00 Indirect Bilirubin 0.2 Aspartate Amino Transf (AST/SGOT) 24 Alanine Aminotransferase (ALT/SGPT) 24 Alkaline Phosphatase 100 Total Protein 8.1 Albumin 3.7 Globulin 4.40 H Albumin/Globulin Ratio 0.84 Test 02/03/17 11:46 02/03/17 12:47 Bedside Glucose 161 150 Medications Medications Current Medications Lorazepam (Ativan) 0.5 mg Q8H PRN PO ANXIETY; Start 01/30/17 at 05:00 Ondansetron HCl (Zofran Inj) 4 mg Q6H PRN IV NAUSEA AND/OR VOMITING Last administered on 02/01/17 20:56; Admin Dose 4 MG; Start 01/30/17 at 05:00 Acetaminophen (Tylenol Tab) 650 mg Q6H PRN PO PAIN LEVEL 1-3 OR FEVER Last administered on 01/30/17 12:04; Admin Dose 650 MG; Start 01/30/17 at 05:00 Diagnostic Test (Pha) (Accu-Chek) 1 ea 02 XX ; Start 01/31/17 at 02:00 Alprazolam (Xanax) 1 mg QHS PRN PO ANXIETY; Start 01/30/17 at 05:00 Benazepril HCl (Lotensin) 40 mg DAILY PO Last administered on 01/31/17 08:08; Admin Dose 40 MG; Start 01/30/17 at 09:00; Status Future Hold Docusate Sodium (Colace) 100 mg BID PO Last administered on 02/02/17 10:02; Admin Dose 100 MG; Start 01/30/17 at 09:00 Gabapentin (Neurontin) 100 mg BID PO Last administered on 02/03/17 09:25; Admin Dose 100 MG; Start 01/30/17 at 09:00 Acetaminophen/ Hydrocodone Bitart ([place] ()) 1 tab Q6H PRN PO PAIN Last administered on 02/01/17 20:33; Admin Dose 1 TAB; Start 01/30/17 at 05:00 Miscellaneous Information 1 ea NOTE XX ; Start 01/30/17 at 05:00 Glucose (Glutose) 15 gm Q15M PRN PO DECREASED GLUCOSE; Start 01/30/17 at 05:00 Glucose (Glutose) 22.5 gm Q15M PRN PO DECREASED GLUCOSE; Start 01/30/17 at 05: 00 Dextrose (D50w Syringe) 25 ml Q15M PRN IV DECREASED GLUCOSE; Start 01/30/17 at 05:00 Dextrose (D50w Syringe) 50 ml Q15M PRN IV DECREASED GLUCOSE; Start 01/30/17 at 05:00 Glucagon (Glucagen) 1 mg Q15M PRN IM DECREASED GLUCOSE; Start 01/30/17 at 05:00 Glucose (Glutose) 15 gm Q15M PRN BUCCAL DECREASED GLUCOSE; Start 01/30/17 at 05 :00 Nitroglycerin (Nitroglycerin (Sl Tab) 0.4 Mg) 1 tab [id number] PRN SL CHEST PAIN ; Start 01/30/17 at 05:30 Heparin Sodium (Porcine) (Heparin (5000 Units/0.5 ml)) 5,000 unit Q8 SC Last administered on 02/03/17 05:35; Admin Dose 5,000 UNIT; Start 02/01/17 at 18:00 Metoprolol Tartrate 12.5 mg 12.5 mg BID PRN PO BP>130 systolic; Start 02/02/17 at 12:00 Sodium Chloride (NS) 1,000 ml @ 50 mls/hr Q20H IV Last administered on 23:51; Admin Dose 50 MLS/HR; Start 02/02/17 at 17:00; Stop 02/03/17 at 16: 59 Colchicine (Colchicine) 0.6 mg DAILY PO Last administered on 02/03/17 09:25; Admin Dose 0.6 MG; Start 02/03/17 at 09:00 Indomethacin (Indocin) 25 mg BID PO Last administered on 02/03/17 09:24; Admin Dose 25 MG; Start 02/02/17 at 21:00 [facility] This patient deleon... PRN PRN XX WOUND CARE; Start 02/02/17 at 17:30 Nystatin (Nystatin Powder) 1 applic BID TOP Last administered on 02/02/17 21: 43; Admin Dose 1 APPLIC; Start 02/02/17 at 21:00 SOLITARIO LAMBERT NP Feb 03, 2017 13:52
[2017-02-03 17:24] LABS: ANA SCREEN POSITIVE (NEGATIVE)
[2017-02-03 18:46] LABS: ANA TITER 1:40 titer
[2017-02-03] MEDS: FERROUS FUMARATE (SR) TAB PO SCH (21:23)
--- NOTE | 2017-02-03 22:20 | CONS ---
Date/Time of Note Date/Time of Note DATE: 02/03/17 TIME: 22:20 Assessment/Plan Assessment/Plan Problems: (1) CKD (chronic kidney disease), stage IV Comment: needs close f/u (2) Morbid obesity Status: Acute Comment: Per PMD Qualifiers: Obesity type: due to excess calories Qualified Code: E66.01 - Morbid obesity due to excess calories (3) Pericardial effusion Status: Acute Comment: Pt followed by cardiology, advised to observe for now, no further intervention Echo shows LVH, Mod p. effusion, (4) Anemia Status: Chronic Comment: May be due to CKD, will check Iron Studies (5) Hypertension Status: Chronic Comment: May be related to obesity, recommend dietary counseling Consultation Date/Type/Reason Admit Date/Time Jan 30, 2017 at 02:47 Initial Consult Date 02/01/17 Type of Consultation: renal Referring Provider: SOLITARIO LAMBERT NP 24 HR Interval Summary Free Text/Dictation morbidly obese female Exam/Review of Systems Vital Signs Vitals Vital Signs Date Time Temp Pulse Resp B/P Pulse Ox O2 Delivery O2 Flow Rate FiO2 02/03/17 20:18 94 02/03/17 19:38 97.9 18 128/71 96 02/03/17 18:57 4.0 02/03/17 08:00 Nasal Cannula 02/02/17 00:05 30 Intake and Output 02/02/17 02/02/17 02/03/17 15:00 23:00 07:00 Intake Total 750 ml 550 ml Balance 750 ml 550 ml Exam Constitutional: alert, obese Psych: no complaints Eyes: nl conjunctiva, other (pale) ENMT: nl external ears & nose Respiratory: clear to auscultation Gastrointestinal: other (abd distened) Results Result Diagram: 02/02/17 0551 02/03/17 0642 Results 24 hrs Laboratory Tests Test 02/03/17 06:42 02/03/17 08:16 02/03/17 11:46 02/03/17 12:47 Sodium Level 133 L Potassium Level 5.1 Chloride Level 97 Carbon Dioxide Level 22 Anion Gap 19 #H Blood Urea Nitrogen 51 H Creatinine 1.64 H Glucose Level 118 Calcium Level 8.8 Total Bilirubin 0.2 Direct Bilirubin 0.00 Indirect Bilirubin 0.2 Aspartate Amino Transf (AST/SGOT) 24 Alanine Aminotransferase (ALT/SGPT) 24 Alkaline Phosphatase 100 Total Protein 8.1 Albumin 3.7 Globulin 4.40 H Albumin/Globulin Ratio 0.84 Bedside Glucose 133 161 150 Test 02/03/17 17:48 02/03/17 21:12 Bedside Glucose 127 134 Medications Medications Current Medications Lorazepam (Ativan) 0.5 mg Q8H PRN PO ANXIETY; Start 01/30/17 at 05:00 Ondansetron HCl (Zofran Inj) 4 mg Q6H PRN IV NAUSEA AND/OR VOMITING Last administered on 02/01/17 20:56; Admin Dose 4 MG; Start 01/30/17 at 05:00 Acetaminophen (Tylenol Tab) 650 mg Q6H PRN PO PAIN LEVEL 1-3 OR FEVER Last administered on 01/30/17 12:04; Admin Dose 650 MG; Start 01/30/17 at 05:00 Diagnostic Test (Pha) (Accu-Chek) 1 ea 02 XX ; Start 01/31/17 at 02:00 Alprazolam (Xanax) 1 mg QHS PRN PO ANXIETY; Start 01/30/17 at 05:00 Benazepril HCl (Lotensin) 40 mg DAILY PO Last administered on 01/31/17 08:08; Admin Dose 40 MG; Start 01/30/17 at 09:00; Status Future Hold Docusate Sodium (Colace) 100 mg BID PO Last administered on 02/03/17 21:22; Admin Dose 100 MG; Start 01/30/17 at 09:00 Gabapentin (Neurontin) 100 mg BID PO Last administered on 02/03/17 21:23; Admin Dose 100 MG; Start 01/30/17 at 09:00 Acetaminophen/ Hydrocodone Bitart ([place] (10/325)) 1 tab Q6H PRN PO PAIN Last administered on 02/01/17 20:33; Admin Dose 1 TAB; Start 01/30/17 at 05:00 Miscellaneous Information 1 ea NOTE XX ; Start 01/30/17 at 05:00 Glucose (Glutose) 15 gm Q15M PRN PO DECREASED GLUCOSE; Start 01/30/17 at 05:00 Glucose (Glutose) 22.5 gm Q15M PRN PO DECREASED GLUCOSE; Start 01/30/17 at 05: 00 Dextrose (D50w Syringe) 25 ml Q15M PRN IV DECREASED GLUCOSE; Start 01/30/17 at 05:00 Dextrose (D50w Syringe) 50 ml Q15M PRN IV DECREASED GLUCOSE; Start 01/30/17 at 05:00 Glucagon (Glucagen) 1 mg Q15M PRN IM DECREASED GLUCOSE; Start 01/30/17 at 05:00 Glucose (Glutose) 15 gm Q15M PRN BUCCAL DECREASED GLUCOSE; Start 01/30/17 at 05 :00 Nitroglycerin (Nitroglycerin (Sl Tab) 0.4 Mg) 1 tab [id number] PRN SL CHEST PAIN ; Start 01/30/17 at 05:30 Heparin Sodium (Porcine) (Heparin (5000 Units/0.5 ml)) 5,000 unit Q8 SC Last administered on 02/03/17 21:52; Admin Dose 5,000 UNIT; Start 02/01/17 at 18:00 Metoprolol Tartrate (Lopressor) 12.5 mg BID PRN PO BP>130 systolic; Start 02/02 at 12:00 Colchicine (Colchicine) 0.6 mg DAILY PO Last administered on 02/03/17 09:25; Admin Dose 0.6 MG; Start 02/03/17 at 09:00 Indomethacin (Indocin) 25 mg BID PO Last administered on 02/03/17 09:24; Admin Dose 25 MG; Start 02/02/17 at 21:00 [facility] This patient deleon... PRN PRN XX WOUND CARE; Start 02/02/17 at 17:30 Nystatin (Nystatin Powder) 1 applic BID TOP Last administered on 02/03/17 21: 23; Admin Dose 1 APPLIC; Start 02/02/17 at 21:00 Docusate Sodium/ Ferrous Fumarate (Abril-Sequels) 1 tab BID PO Last administered on 02/03/17 21:23; Admin Dose 1 TAB; Start 02/03/17 at 21:00 SUZIE DOHERTY MD Feb 03, 2017 22:20
[2017-02-04] VITALS (11 sets, daily range): BP systolic 101–132; BP diastolic 58–80; PULSE 81–87; RESP 18–19
[2017-02-04] MEDS: ACCU-CHEK XX SCH (02:00)
[2017-02-04] MEDS: HYDROCODONE/APAP (10/325) TAB PO PRN (02:49)
[2017-02-04] MEDS: HEPARIN 5,000 UNIT/0.5 ML VIAL SC SCH ×3 (05:33→21:33)
[2017-02-04 07:07] LABS: BASOPHIL # 0.1 10^3/ul (0.0-0.1); BASOPHILS % 0.4 % (0.0-2.0); EOSINOPHILS # 0.2 10^3/ul (0.0-0.5); EOSINOPHILS % 1.7 % (0.0-7.0); HEMATOCRIT 32.6 % (37.0-47.0); HEMOGLOBIN 9.9 g/dl (12.0-16.0); LYMPHOCYTES # 2.3 10^3/ul (0.8-2.9); LYMPHOCYTES % 17.9 % (15.0-51.0); MEAN CORPUSCULAR HEMOGLOBIN 23.4 pg (29.0-33.0); MEAN CORPUSCULAR HGB CONC 30.4 g/dl (32.0-37.0); MEAN CORPUSCULAR VOLUME 77.1 fl (82.0-101.0); MEAN PLATELET VOLUME 9.3 fl (7.4-10.4); MONOCYTE # 0.8 10^3/ul (0.3-0.9); MONOCYTES % 6.3 % (0.0-11.0); NEUTROPHILS % 72.4 % (39.0-77.0); NUCLEATED RED BLOOD CELLS% 0.2 /100WBC (0.0-0.0); PLATELET COUNT 548 10^3/UL (140-415); RED BLOOD COUNT 4.23 10^6/ul (4.20-5.40); RED CELL DISTRIBUTION WIDTH 16.6 % (11.5-14.5); WHITE BLOOD COUNT 12.6 10^3/ul (4.8-10.8)
[2017-02-04 07:23] LABS: CALCIUM 9.1 mg/dl (8.4-10.2); CREATININE 1.69 mg/dl (0.44-1.00); POTASSIUM 4.7 mmol/L (3.5-5.1)
[2017-02-04] MEDS: INSULIN ASPART [NOVOLOG] 3 ML PEN SC SCH ×4 (07:55→20:54)
[2017-02-04] MEDS: CALCIUM CARBONATE 500 MG CHEW TAB PO SCH ×3 (08:10→17:42)
[2017-02-04 08:28] LABS: MAGNESIUM 2.6 mg/dl (1.7-2.5); PHOSPHORUS 4.7 mg/dl (2.5-4.9)
[2017-02-04] MEDS: FERROUS FUMARATE (SR) TAB PO SCH ×2 (09:09→20:54)
[2017-02-04] MEDS: DOCUSATE SODIUM 100 MG CAP PO SCH ×2 (09:09→20:54)
[2017-02-04] MEDS: INDOMETHACIN 25 MG PO SCH ×2 (09:10→20:54)
[2017-02-04] MEDS: GABAPENTIN 100 MG CAP PO SCH ×2 (09:10→20:54)
[2017-02-04] MEDS: COLCHICINE 0.6 MG TAB PO SCH (09:12)
[2017-02-04 10:08] LABS: COMPLEMENT C3 150 mg/dl (88-165); COMPLEMENT C4 25 mg/dl (14-44)
[2017-02-04] MEDS ORDERED: HYDROmorphONE 1 MG/ML SYG IV STA (11:21)
--- NOTE | 2017-02-04 11:48 | CONS ---
Date/Time of Note Date/Time of Note DATE: 02/04/17 TIME: 11:44 Consult Date/Type/Reason Admit Date/Time Jan 30, 2017 at 02:47 Initial Consult Date 02/01/17 Type of Consultation: Pulmonary Ordering Provider: SOLITARIO LAMBERT [employer] Subjective Awake alert comfortable at rest. Exertional dyspnea. Objective Vital Signs Date Time Temp Pulse Resp B/P Pulse Ox O2 Delivery O2 Flow Rate FiO2 02/04/17 11:25 98.5 93 19 132/78 98 02/04/17 08:10 Nasal Cannula 3.0 02/02/17 00:05 30 Intake and Output 02/03/17 02/03/17 02/04/17 15:00 23:00 07:00 Intake Total 600 ml 500 ml Balance 600 ml 500 ml Exam GENERAL APPEARANCE: On examination, morbidly obese lady. Appears comfortable, in no acute distress. NECK: Supple. No JVD, no lymphadenopathy. CARDIAC: S1, S2. No added sounds or murmurs. CHEST: Diminished air entry bilaterally. ABDOMEN: Soft, nontender. No guarding or rebound. EXTREMITIES: No cyanosis, clubbing or edema. NEUROLOGIC: Grossly intact. Results/Medications Result Diagram: 02/04/17 0629 02/04/17 0631 Results 24 hrs Laboratory Tests Test 02/03/17 11:46 02/03/17 12:47 02/03/17 17:48 02/03/17 21:12 Bedside Glucose 161 150 127 134 Test 02/04/17 06:29 02/04/17 06:31 02/04/17 08:09 White Blood Count 12.6 H Red Blood Count 4.23 Hemoglobin 9.9 L Hematocrit 32.6 L Mean Corpuscular Volume 77.1 L Mean Corpuscular Hemoglobin 23.4 L Mean Corpuscular Hemoglobin Concent 30.4 L Red Cell Distribution Width 16.6 H Platelet Count 548 #H Mean Platelet Volume 9.3 Neutrophils % 72.4 Lymphocytes % 17.9 Monocytes % 6.3 Eosinophils % 1.7 Basophils % 0.4 Nucleated Red Blood Cells % 0.2 H Neutrophils # (Manual) 9.1 H Lymphocytes # 2.3 Monocytes # 0.8 Eosinophils # 0.2 Basophils # 0.1 Nucleated Red Blood Cells # 0.0 Phosphorus Level 4.7 Magnesium Level 2.6 H Sodium Level 133 L Potassium Level 4.7 Chloride Level 95 L Carbon Dioxide Level 27 Anion Gap 16 Blood Urea Nitrogen 51 H Creatinine 1.69 H Glucose Level 128 Calcium Level 9.1 Complement C3 150 Complement C4 25 Bedside Glucose 118 Medications Current Medications Lorazepam (Ativan) 0.5 mg Q8H PRN PO ANXIETY; Start 01/30/17 at 05:00 Ondansetron HCl (Zofran Inj) 4 mg Q6H PRN IV NAUSEA AND/OR VOMITING Last administered on 02/01/17 20:56; Admin Dose 4 MG; Start 01/30/17 at 05:00 Acetaminophen (Tylenol Tab) 650 mg Q6H PRN PO PAIN LEVEL 1-3 OR FEVER Last administered on 01/30/17 12:04; Admin Dose 650 MG; Start 01/30/17 at 05:00 Diagnostic Test (Pha) (Accu-Chek) 1 ea 02 XX ; Start 01/31/17 at 02:00 Alprazolam (Xanax) 1 mg QHS PRN PO ANXIETY; Start 01/30/17 at 05:00 Benazepril HCl (Lotensin) 40 mg DAILY PO Last administered on 01/31/17 08:08; Admin Dose 40 MG; Start 01/30/17 at 09:00; Status Future Hold Docusate Sodium (Colace) 100 mg BID PO Last administered on 02/04/17 09:09; Admin Dose 100 MG; Start 01/30/17 at 09:00 Gabapentin (Neurontin) 100 mg BID PO Last administered on 02/04/17 09:10; Admin Dose 100 MG; Start 01/30/17 at 09:00 Acetaminophen/ Hydrocodone Bitart ([place] (10/325)) 1 tab Q6H PRN PO PAIN Last administered on 02/04/17 02:49; Admin Dose 1 TAB; Start 01/30/17 at 05:00 Miscellaneous Information 1 ea NOTE XX ; Start 01/30/17 at 05:00 Glucose (Glutose) 15 gm Q15M PRN PO DECREASED GLUCOSE; Start 01/30/17 at 05:00 Glucose (Glutose) 22.5 gm Q15M PRN PO DECREASED GLUCOSE; Start 01/30/17 at 05: 00 Dextrose (D50w Syringe) 25 ml Q15M PRN IV DECREASED GLUCOSE; Start 01/30/17 at 05:00 Dextrose (D50w Syringe) 50 ml Q15M PRN IV DECREASED GLUCOSE; Start 01/30/17 at 05:00 Glucagon (Glucagen) 1 mg Q15M PRN IM DECREASED GLUCOSE; Start 01/30/17 at 05:00 Glucose (Glutose) 15 gm Q15M PRN BUCCAL DECREASED GLUCOSE; Start 01/30/17 at 05 :00 Nitroglycerin (Nitroglycerin (Sl Tab) 0.4 Mg) 1 tab [id number] PRN SL CHEST PAIN ; Start 01/30/17 at 05:30 Heparin Sodium (Porcine) (Heparin (5000 Units/0.5 ml)) 5,000 unit Q8 SC Last administered on 02/04/17 05:33; Admin Dose 5,000 UNIT; Start 02/01/17 at 18:00 Metoprolol Tartrate (Lopressor) 12.5 mg BID PRN PO BP>130 systolic; Start 02/02 at 12:00 Colchicine (Colchicine) 0.6 mg DAILY PO Last administered on 02/04/17 09:12; Admin Dose 0.6 MG; Start 02/03/17 at 09:00 Indomethacin (Indocin) 25 mg BID PO Last administered on 02/04/17 09:10; Admin Dose 25 MG; Start 02/02/17 at 21:00 Miscellaneous Information (Pending [facility] For [facility] Care) This patient deleon... PRN PRN XX WOUND CARE; Start 02/02/17 at 17:30 Nystatin (Nystatin Powder) 1 applic BID TOP Last administered on 02/03/17 21: 23; Admin Dose 1 APPLIC; Start 02/02/17 at 21:00 Docusate Sodium/ Ferrous Fumarate (Abril-Sequels) 1 tab BID PO Last administered on 02/04/17 09:09; Admin Dose 1 TAB; Start 02/03/17 at 21:00 Assessment/Plan Chief Complaint/Hosp Course ASSESSMENT: 1. Hypoxemia. Likely multifactorial. Most certainly has alveolar hypoventilation secondary to morbid obesity with probable obstructive lung disease. 2. History of pulmonary embolism. Unclear whether she has a new pulmonary embolus at this point. D-dimer can be elevated for multiple reasons and a positive D-dimer is nonspecific. Lower extremity Dopplers are negative for deep vein thrombosis. The patient is too large for ventilation-perfusion scan and CT angiogram. 3. History of psychiatric disorder. 4. Probable underlying obstructive sleep apnea. 5. Possible pericardial effusion. Cardiology recs. PLAN: 1. Outpatient sleep study 2. encourage OOB 3. dc planning ? home O2. Problems: TALIA ACEVEDO MD, [facility] Feb 04, 2017 11:48
[2017-02-04] MEDS: ONDANSETRON 4 MG INJ IV PRN (11:54)
[2017-02-04] MEDS: NYSTATIN 30 GM POWDER BTL TOP SCH ×2 (12:40→20:56)
--- NOTE | 2017-02-04 12:53 | PN ---
Date/Time of Note Date/Time of Note DATE: 02/04/17 TIME: 12:52 Assessment/Plan VTE Prophylaxis VTE Prophylaxis Intervention: heparin Lines/Catheters [facility] Urinary Cath still in place: No Assessment/Plan Chief Complaint/Hosp Course 1. Chest pain. Serial troponins negative. 2D echocardiogram showing moderate sized pericardial effusion. This could be the reason for her underlying chest pain. Cardiology following the patient. 2. Moderate pericardial effusion. Status post evaluation by cardiac surgery. Nonsurgical management as per cardiac surgery. 3. Acute respiratory failure. Hypoxic and hypercapnic. The patient has known history of pulmonary embolism. The patient not a candidate for a CT angiogram because of the heavy weight. VQ scan has been ordered. The patient could not tolerate VQ scan because of orthopnea. B/L LE venous Doppler negative for any DVT . Being followed by Pulmonology. 4. Essential hypertension. Continue antihypertensives. 5. Depression. Continue antidepressants. 6. Type 2 diabetes mellitus. Will hold the metformin because of worsening renal function. Continue sliding scale insulin. 7. Acute kidney injury. Will hold her nephrotoxic medications. Nephrology following. 8. Microcytic, hypochromic anemia. Underlying iron deficiency. Continue the patient on iron supplements. 9. Obesity. BMI of 46.3 kg/m. Weight reduction advised. 10. Fluids, electrolytes, and nutrition. Carbohydrate controlled diet. 11. DVT prophylaxis. SQ heparin. 12. Plan. Continue current management. Hold nephrotoxic medications. Await further recommendations from consultants. Case discussed with Dr. Hernandez. Problems: Subjective 24 Hr Interval Summary Free Text/Dictation Continues to have episodes of chest pain. Exam/Review of Systems Vital Signs Vitals Vital Signs Date Time Temp Pulse Resp B/P Pulse Ox O2 Delivery O2 Flow Rate FiO2 02/04/17 11:25 98.5 93 19 132/78 98 02/04/17 08:10 Nasal Cannula 3.0 02/02/17 00:05 30 Intake and Output 02/03/17 02/03/17 02/04/17 15:00 23:00 07:00 Intake Total 600 ml 500 ml Balance 600 ml 500 ml Exam General: Morbidly obese 46 year-old female lying in bed in no apparent distress. HEENT: Normocephalic, atraumatic. Eyes: Anicteric sclerae, conjunctivae clear. ENT: Nasal septum midline, oral mucosa moist. Neck supple, no JVD noticed. Respiratory: Bilaterally diminished breath sounds. No use of accessory muscles of respiration. No adventitious breath sounds. Cardiovascular: S1, S2 heard. Distant heart sounds Abdomen: Soft, nontender, and nondistended. Bowel sounds positive in all 4 quadrants. Genitourinary: Deferred. Extremities: No cyanosis, no clubbing, no edema. Peripheral pulses palpable. Neurologic: Cranial nerves II through XII grossly intact. The patient is awake, alert, and oriented. Skin: Normal skin turgor. No skin rashes. Results Result Diagram: 02/04/17 0629 02/04/17 0631 Results 24 hrs Laboratory Tests Test 02/03/17 17:48 02/03/17 21:12 02/04/17 06:29 02/04/17 06:31 Bedside Glucose 127 134 White Blood Count 12.6 H Red Blood Count 4.23 Hemoglobin 9.9 L Hematocrit 32.6 L Mean Corpuscular Volume 77.1 L Mean Corpuscular Hemoglobin 23.4 L Mean Corpuscular Hemoglobin Concent 30.4 L Red Cell Distribution Width 16.6 H Platelet Count 548 #H Mean Platelet Volume 9.3 Neutrophils % 72.4 Lymphocytes % 17.9 Monocytes % 6.3 Eosinophils % 1.7 Basophils % 0.4 Nucleated Red Blood Cells % 0.2 H Neutrophils # (Manual) 9.1 H Lymphocytes # 2.3 Monocytes # 0.8 Eosinophils # 0.2 Basophils # 0.1 Nucleated Red Blood Cells # 0.0 Phosphorus Level 4.7 Magnesium Level 2.6 H Sodium Level 133 L Potassium Level 4.7 Chloride Level 95 L Carbon Dioxide Level 27 Anion Gap 16 Blood Urea Nitrogen 51 H Creatinine 1.69 H Glucose Level 128 Calcium Level 9.1 Complement C3 150 Complement C4 25 Test 02/04/17 08:09 02/04/17 11:51 Bedside Glucose 118 126 Medications Medications Current Medications Lorazepam (Ativan) 0.5 mg Q8H PRN PO ANXIETY; Start 01/30/17 at 05:00 Ondansetron HCl (Zofran Inj) 4 mg Q6H PRN IV NAUSEA AND/OR VOMITING Last administered on 02/04/17t 11:54; Admin Dose 4 MG; Start 01/30/17 at 05:00 Acetaminophen (Tylenol Tab) 650 mg Q6H PRN PO PAIN LEVEL 1-3 OR FEVER Last administered on 01/30/17 12:04; Admin Dose 650 MG; Start 01/30/17 at 05:00 Diagnostic Test (Pha) (Accu-Chek) 1 ea 02 XX ; Start 01/31/17 at 02:00 Alprazolam (Xanax) 1 mg QHS PRN PO ANXIETY; Start 01/30/17 at 05:00 Benazepril HCl (Lotensin) 40 mg DAILY PO Last administered on 01/31/17 08:08; Admin Dose 40 MG; Start 01/30/17 at 09:00; Status Future Hold Docusate Sodium (Colace) 100 mg BID PO Last administered on 02/04/17 09:09; Admin Dose 100 MG; Start 01/30/17 at 09:00 Gabapentin (Neurontin) 100 mg BID PO Last administered on 02/04/17 09:10; Admin Dose 100 MG; Start 01/30/17 at 09:00 Acetaminophen/ Hydrocodone Bitart ([place] (10/325)) 1 tab Q6H PRN PO PAIN Last administered on 02/04/17 02:49; Admin Dose 1 TAB; Start 01/30/17 at 05:00 Miscellaneous Information 1 ea NOTE XX ; Start 01/30/17 at 05:00 Glucose (Glutose) 15 gm Q15M PRN PO DECREASED GLUCOSE; Start 01/30/17 at 05:00 Glucose (Glutose) 22.5 gm Q15M PRN PO DECREASED GLUCOSE; Start 01/30/17 at 05: 00 Dextrose (D50w Syringe) 25 ml Q15M PRN IV DECREASED GLUCOSE; Start 01/30/17 at 05:00 Dextrose (D50w Syringe) 50 ml Q15M PRN IV DECREASED GLUCOSE; Start 01/30/17 at 05:00 Glucagon (Glucagen) 1 mg Q15M PRN IM DECREASED GLUCOSE; Start 01/30/17 at 05:00 Glucose (Glutose) 15 gm Q15M PRN BUCCAL DECREASED GLUCOSE; Start 01/30/17 at 05 :00 Nitroglycerin (Nitroglycerin (Sl Tab) 0.4 Mg) 1 tab [id number] PRN SL CHEST PAIN ; Start 01/30/17 at 05:30 Heparin Sodium (Porcine) (Heparin (5000 Units/0.5 ml)) 5,000 unit Q8 SC Last administered on 02/04/17 05:33; Admin Dose 5,000 UNIT; Start 02/01/17 at 18:00 Metoprolol Tartrate (Lopressor) 12.5 mg BID PRN PO BP>130 systolic; Start 02/02 at 12:00 Colchicine (Colchicine) 0.6 mg DAILY PO Last administered on 02/04/17 09:12; Admin Dose 0.6 MG; Start 02/03/17 at 09:00 Indomethacin (Indocin) 25 mg BID PO Last administered on 02/04/17 09:10; Admin Dose 25 MG; Start 02/02/17 at 21:00 Miscellaneous Information (Pending [facility] Order For Wound Care) This patient deleon... PRN PRN XX WOUND CARE; Start 02/02/17 at 17:30 Nystatin (Nystatin Powder) 1 applic BID TOP Last administered on 02/04/17 12: 40; Admin Dose 1 APPLIC; Start 02/02/17 at 21:00 Docusate Sodium/ Ferrous Fumarate (Abril-Sequels) 1 tab BID PO Last administered on 02/04/17 09:09; Admin Dose 1 TAB; Start 02/03/17 at 21:00 SOLITARIO LAMBERT NP Feb 04, 2017 12:52
--- NOTE | 2017-02-04 17:07 | RADRPT ---
Vent Rate: 68 bpm RR Interval: 0 msec AR Interval: 160 msec QRS Duration: 76 msec QT Interval: 406 msec QTC Interval: 431 msec P-R-T [place]: 31 - 49 - 32 degrees Normal sinus rhythm Septal infarct , age undetermined Abnormal ECG Electronically Signed By: Manuelito Gutiérrez [id number]
[2017-02-04] MEDS: HYDROmorphONE 1 MG/ML SYG IV PRN (21:30)
--- NOTE | 2017-02-04 21:59 | CONS ---
Date/Time of Note Date/Time of Note DATE: 02/04/17 TIME: 21:54 Assessment/Plan Assessment/Plan Problems: (1) Anemia Comment: check Iron Studies (2) Morbid obesity Status: Acute Qualifiers: Obesity type: due to excess calories Qualified Code: E66.01 - Morbid obesity due to excess calories (3) CKD (chronic kidney disease), stage IV Comment: Component of Pre-renal Azotemia is improving Consultation Date/Type/Reason Admit Date/Time Jan 30, 2017 at 02:47 Initial Consult Date 02/01/17 Type of Consultation: renal Referring Provider: SOLITARIO LAMBERT EDUCATION AND TRAINING MANAGER Exam/Review of Systems Vital Signs Vitals Vital Signs Date Time Temp Pulse Resp B/P Pulse Ox O2 Delivery O2 Flow Rate FiO2 02/04/17 21:49 3.0 02/04/17 21:01 85 02/04/17 20:00 97.8 18 124/72 96 02/04/17 08:10 Nasal Cannula 02/02/17 00:05 30 Intake and Output 02/03/17 02/03/17 02/04/17 15:00 23:00 07:00 Intake Total 600 ml 500 ml Balance 600 ml 500 ml Exam Constitutional: alert, obese, oriented, well developed Psych: nl mood/affect, no complaints Head: atraumatic, normocephalic Eyes: EOMI, PERRL, nl conjunctiva, nl lids, nl sclera ENMT: nl external ears & nose, nl lips & teeth, nl nasal mucosa & septum Neck: non-tender, supple Respiratory: clear to auscultation, normal air movement Cardiovascular: nl pulses, regular rate and rhythm Gastrointestinal: nl liver, spleen, non-tender, other (distended), soft Musculoskeletal: nl extremities to inspection, nl gait and stance Extremities: normal pulses Neurological: BRASS FINISHER II-XII intact, nl mental status, nl speech, nl strength Skin: nl turgor, No rash or lesions Lymph: nl lymph nodes Results Renal Fn has improved, Hct is low Result Diagram: 02/04/17 0629 02/04/17 0631 Results 24 hrs Laboratory Tests Test 02/04/17 06:29 02/04/17 06:31 02/04/17 08:09 02/04/17 11:51 White Blood Count 12.6 H Red Blood Count 4.23 Hemoglobin 9.9 L Hematocrit 32.6 L Mean Corpuscular Volume 77.1 L Mean Corpuscular Hemoglobin 23.4 L Mean Corpuscular Hemoglobin Concent 30.4 L Red Cell Distribution Width 16.6 H Platelet Count 548 #H Mean Platelet Volume 9.3 Neutrophils % 72.4 Lymphocytes % 17.9 Monocytes % 6.3 Eosinophils % 1.7 Basophils % 0.4 Nucleated Red Blood Cells % 0.2 H Neutrophils # (Manual) 9.1 H Lymphocytes # 2.3 Monocytes # 0.8 Eosinophils # 0.2 Basophils # 0.1 Nucleated Red Blood Cells # 0.0 Phosphorus Level 4.7 Magnesium Level 2.6 H Sodium Level 133 L Potassium Level 4.7 Chloride Level 95 L Carbon Dioxide Level 27 Anion Gap 16 Blood Urea Nitrogen 51 H Creatinine 1.69 H Glucose Level 128 Calcium Level 9.1 Complement C3 150 Complement C4 25 Bedside Glucose 118 126 Test 02/04/17 17:22 02/04/17 20:34 Bedside Glucose 138 126 Medications Medications Current Medications Lorazepam (Ativan) 0.5 mg Q8H PRN PO ANXIETY; Start 01/30/17 at 05:00 Ondansetron HCl (Zofran Inj) 4 mg Q6H PRN IV NAUSEA AND/OR VOMITING Last administered on 02/04/17 11:54; Admin Dose 4 MG; Start 01/30/17 at 05:00 Acetaminophen (Tylenol Tab) 650 mg Q6H PRN PO PAIN LEVEL 1-3 OR FEVER Last administered on 01/30/17 12:04; Admin Dose 650 MG; Start 01/30/17 at 05:00 Diagnostic Test (Pha) (Accu-Chek) 1 ea 02 XX ; Start 01/31/17 at 02:00 Alprazolam (Xanax) 1 mg QHS PRN PO ANXIETY; Start 01/30/17 at 05:00 Benazepril HCl (Lotensin) 40 mg DAILY PO Last administered on 01/31/17 08:08; Admin Dose 40 MG; Start 01/30/17 at 09:00; Status Future Hold Docusate Sodium (Colace) 100 mg BID PO Last administered on 02/04/17 20:54; Admin Dose 100 MG; Start 01/30/17 at 09:00 Gabapentin (Neurontin) 100 mg BID PO Last administered on 02/04/17 20:54; Admin Dose 100 MG; Start 01/30/17 at 09:00 Acetaminophen/ Hydrocodone Bitart ([place] (10/325)) 1 tab Q6H PRN PO PAIN Last administered on 02/04/17 02:49; Admin Dose 1 TAB; Start 01/30/17 at 05:00 Miscellaneous Information 1 ea NOTE XX ; Start 01/30/17 at 05:00 Glucose (Glutose) 15 gm Q15M PRN PO DECREASED GLUCOSE; Start 01/30/17 at 05:00 Glucose (Glutose) 22.5 gm Q15M PRN PO DECREASED GLUCOSE; Start 01/30/17 at 05: 00 Dextrose (D50w Syringe) 25 ml Q15M PRN IV DECREASED GLUCOSE; Start 01/30/17 at 05:00 Dextrose (D50w Syringe) 50 ml Q15M PRN IV DECREASED GLUCOSE; Start 01/30/17 at 05:00 Glucagon (Glucagen) 1 mg Q15M PRN IM DECREASED GLUCOSE; Start 01/30/17 at 05:00 Glucose (Glutose) 15 gm Q15M PRN BUCCAL DECREASED GLUCOSE; Start 01/30/17 at 05 :00 Nitroglycerin (Nitroglycerin (Sl Tab) 0.4 Mg) 1 tab [id number] PRN SL CHEST PAIN ; Start 01/30/17 at 05:30 Heparin Sodium (Porcine) (Heparin (5000 Units/0.5 ml)) 5,000 unit Q8 SC Last administered on 02/04/17 21:33; Admin Dose 5,000 UNIT; Start 02/01/17 at 18:00 Metoprolol Tartrate (Lopressor) 12.5 mg BID PRN PO BP>130 systolic; Start 02/02 at 12:00 Colchicine (Colchicine) 0.6 mg DAILY PO Last administered on 02/04/17 09:12; Admin Dose 0.6 MG; Start 02/03/17 at 09:00 Indomethacin (Indocin) 25 mg BID PO Last administered on 02/04/17 20:54; Admin Dose 25 MG; Start 02/02/17 at 21:00 [facility] This patient deleon... PRN PRN XX WOUND CARE; Start 02/02/17 at 17:30 Nystatin (Nystatin Powder) 1 applic BID TOP Last administered on 02/04/17 12: 40; Admin Dose 1 APPLIC; Start 02/02/17 at 21:00 Docusate Sodium/ Ferrous Fumarate (Abril-Sequels) 1 tab BID PO Last administered on 02/04/17 20:54; Admin Dose 1 TAB; Start 02/03/17 at 21:00 Hydromorphone HCl (Dilaudid) 1 mg Q6H PRN IV PAIN Last administered on 21:30; Admin Dose 1 MG; Start 02/04/17 at 14:30 SUZIE DOHERTY MD Feb 04, 2017 21:58
[2017-02-05] VITALS (10 sets, daily range): BP systolic 110–122; BP diastolic 56–78; PULSE 69–86; RESP 16–20
[2017-02-05] MEDS: ACCU-CHEK XX SCH (02:00)
[2017-02-05 05:22] LABS: IRON 20 ug/dl (35-150); TOTAL IRON BINDING CAPACITY 351 ug/dl (241-421)
[2017-02-05] MEDS: HEPARIN 5,000 UNIT/0.5 ML VIAL SC SCH ×3 (06:00→22:00)
[2017-02-05 07:14] LABS: MAGNESIUM 2.7 mg/dl (1.7-2.5); PHOSPHORUS 4.6 mg/dl (2.5-4.9)
[2017-02-05] MEDS: INSULIN ASPART [NOVOLOG] 3 ML PEN SC SCH ×4 (07:38→21:00)
[2017-02-05] MEDS: CALCIUM CARBONATE 500 MG CHEW TAB PO SCH ×3 (08:40→18:20)
[2017-02-05] MEDS: DOCUSATE SODIUM 100 MG CAP PO SCH ×2 (08:41→21:00)
[2017-02-05] MEDS: FERROUS FUMARATE (SR) TAB PO SCH ×2 (08:41→21:00)
[2017-02-05] MEDS: COLCHICINE 0.6 MG TAB PO SCH (08:41)
[2017-02-05] MEDS: INDOMETHACIN 25 MG PO SCH ×2 (08:41→21:00)
[2017-02-05] MEDS: GABAPENTIN 100 MG CAP PO SCH ×2 (08:41→21:00)
[2017-02-05] MEDS: NYSTATIN 30 GM POWDER BTL TOP SCH ×2 (08:42→21:00)
[2017-02-05 08:46] LABS: BASOPHIL # 0.1 10^3/ul (0.0-0.1); BASOPHILS % 0.5 % (0.0-2.0); EOSINOPHILS # 0.1 10^3/ul (0.0-0.5); EOSINOPHILS % 1.4 % (0.0-7.0); HEMATOCRIT 31.4 % (37.0-47.0); HEMOGLOBIN 9.1 g/dl (12.0-16.0); LYMPHOCYTES # 1.9 10^3/ul (0.8-2.9); LYMPHOCYTES % 18.6 % (15.0-51.0); MEAN CORPUSCULAR HEMOGLOBIN 22.5 pg (29.0-33.0); MEAN CORPUSCULAR VOLUME 77.7 fl (82.0-101.0); MEAN PLATELET VOLUME 9.4 fl (7.4-10.4); MONOCYTE # 0.7 10^3/ul (0.3-0.9); MONOCYTES % 6.7 % (0.0-11.0); NEUTROPHILS % 71.8 % (39.0-77.0); NUCLEATED RED BLOOD CELLS% 0.4 /100WBC (0.0-0.0); PLATELET COUNT 488 10^3/UL (140-415); RED BLOOD COUNT 4.04 10^6/ul (4.20-5.40); RED CELL DISTRIBUTION WIDTH 16.7 % (11.5-14.5); WHITE BLOOD COUNT 10.1 10^3/ul (4.8-10.8)
[2017-02-05 08:53] LABS: CALCIUM 9.1 mg/dl (8.4-10.2); CREATININE 1.82 mg/dl (0.44-1.00); POTASSIUM 5.2 mmol/L (3.5-5.1)
[2017-02-05] MEDS ORDERED: HYDROmorphONE 1 MG/ML SYG IV STA (12:32)
[2017-02-05] MEDS: HYDROmorphONE 1 MG/ML SYG IV PRN (12:46)
[2017-02-05] MEDS ORDERED: MAGNESIUM HYDROXIDE 30ML CUP PO ONE (13:00)
--- NOTE | 2017-02-05 14:22 | CONS ---
Date/Time of Note Date/Time of Note DATE: 02/05/17 TIME: 14:01 Assessment/Plan Assessment/Plan Problems: (1) Psoriasis Comment: Pt may benefit from Rx (2) Morbid obesity Status: Chronic Comment: RD Consult Qualifiers: Obesity type: due to excess calories Qualified Code: E66.01 - Morbid obesity due to excess calories (3) Pericardial effusion Status: Acute Comment: Pt may benefit from a low dose diuretic (4) Anemia Status: Chronic Comment: Iron Sat 6%, will start IV Iron (5) CKD (chronic kidney disease), stage IV Comment: Creat has risen, may be due to Iindocin, may have to dc to preserve renal fn, pending cardiac advisement (6) MARISSA positive Comment: ?connection between P. Effusion & MARISSA Additional Assessment/Plan CREAT CLEARANCE PENDING Cont'd Hospitalization Reason: MARISSA is positive Consultation Date/Type/Reason Admit Date/Time Jan 30, 2017 at 02:47 Initial Consult Date 02/01/17 Type of Consultation: renal Referring Provider: SOLITARIO LAMBERT OPERATIONS REPRESENTATIVE Exam/Review of Systems Vital Signs Vitals Vital Signs Date Time Temp Pulse Resp B/P Pulse Ox O2 Delivery O2 Flow Rate FiO2 02/05/17 13:33 3.0 02/05/17 12:10 72 02/05/17 11:07 98.2 19 114/74 96 02/05/17 04:00 Nasal Cannula 02/02/17 00:05 30 Intake and Output 02/04/17 02/04/17 02/05/17 15:00 23:00 07:00 Intake Total 800 ml Balance 800 ml Exam Constitutional: alert, obese, oriented, well developed Psych: nl mood/affect, no complaints Head: atraumatic, normocephalic Eyes: EOMI, PERRL, nl conjunctiva, nl lids, nl sclera ENMT: nl external ears & nose, nl lips & teeth, nl nasal mucosa & septum Neck: non-tender, supple Respiratory: clear to auscultation, normal air movement Cardiovascular: nl pulses, regular rate and rhythm Gastrointestinal: nl liver, spleen, non-tender, soft Musculoskeletal: nl extremities to inspection, nl gait and stance Extremities: normal pulses Neurological: LEGAL TECHNICIAN II-XII intact, nl mental status, nl speech, nl strength Skin: nl turgor, other (PSORIASIS), No rash or lesions Lymph: nl lymph nodes Results RENAL FN VARIABLE Result Diagram: 02/05/17 0532 02/05/17 0532 Results 24 hrs Laboratory Tests Test 02/04/17 17:22 02/04/17 20:34 02/04/17 21:55 02/05/17 05:32 Bedside Glucose 138 126 Iron Level 20 L Total Iron Binding Capacity 351 Percent Iron Saturation 6 L White Blood Count 10.1 Red Blood Count 4.04 L Hemoglobin 9.1 L Hematocrit 31.4 L Mean Corpuscular Volume 77.7 L Mean Corpuscular Hemoglobin 22.5 L Mean Corpuscular Hemoglobin Concent 29.0 L Red Cell Distribution Width 16.7 H Platelet Count 488 H Mean Platelet Volume 9.4 Neutrophils % 71.8 Lymphocytes % 18.6 Monocytes % 6.7 Eosinophils % 1.4 Basophils % 0.5 Nucleated Red Blood Cells % 0.4 H Neutrophils # (Manual) 7.2 Lymphocytes # 1.9 Monocytes # 0.7 Eosinophils # 0.1 Basophils # 0.1 Nucleated Red Blood Cells # 0.0 Sodium Level 137 Potassium Level 5.2 H Chloride Level 97 Carbon Dioxide Level 25 Anion Gap 20 H Blood Urea Nitrogen 50 H Creatinine 1.82 H Glucose Level 137 Calcium Level 9.1 Phosphorus Level 4.6 Magnesium Level 2.7 H Test 02/05/17 11:24 Bedside Glucose 141 Medications Medications Current Medications Lorazepam (Ativan) 0.5 mg Q8H PRN PO ANXIETY; Start 01/30/17 at 05:00 Ondansetron HCl (Zofran Inj) 4 mg Q6H PRN IV NAUSEA AND/OR VOMITING Last administered on 02/04/17 11:54; Admin Dose 4 MG; Start 01/30/17 at 05:00 Acetaminophen (Tylenol Tab) 650 mg Q6H PRN PO PAIN LEVEL 1-3 OR FEVER Last administered on 01/30/17 12:04; Admin Dose 650 MG; Start 01/30/17 at 05:00 Diagnostic Test (Pha) (Accu-Chek) 1 ea 02 XX Last administered on 02/05/17 02: 00; Admin Dose 1 EA; Start 01/31/17 at 02:00 Alprazolam (Xanax) 1 mg QHS PRN PO ANXIETY; Start 01/30/17 at 05:00 Benazepril HCl (Lotensin) 40 mg DAILY PO Last administered on 01/31/17 08:08; Admin Dose 40 MG; Start 01/30/17 at 09:00; Status Future Hold Docusate Sodium (Colace) 100 mg BID PO Last administered on 02/05/17 08:41; Admin Dose 100 MG; Start 01/30/17 at 09:00 Gabapentin (Neurontin) 100 mg BID PO Last administered on 02/05/17 08:41; Admin Dose 100 MG; Start 01/30/17 at 09:00 Acetaminophen/ Hydrocodone Bitart ([place] (10)) 1 tab Q6H PRN PO PAIN Last administered on 02/04/17 02:49; Admin Dose 1 TAB; Start 01/30/17 at 05:00 Miscellaneous Information 1 ea NOTE XX ; Start 01/30/17 at 05:00 Glucose (Glutose) 15 gm Q15M PRN PO DECREASED GLUCOSE; Start 01/30/17 at 05:00 Glucose (Glutose) 22.5 gm Q15M PRN PO DECREASED GLUCOSE; Start 01/30/17 at 05: 00 Dextrose (D50w Syringe) 25 ml Q15M PRN IV DECREASED GLUCOSE; Start 01/30/17 at 05:00 Dextrose (D50w Syringe) 50 ml Q15M PRN IV DECREASED GLUCOSE; Start 01/30/17 at 05:00 Glucagon (Glucagen) 1 mg Q15M PRN IM DECREASED GLUCOSE; Start 01/30/17 at 05:00 Glucose (Glutose) 15 gm Q15M PRN BUCCAL DECREASED GLUCOSE; Start 01/30/17 at 05 :00 Nitroglycerin (Nitroglycerin (Sl Tab) 0.4 Mg) 1 tab [id number] PRN SL CHEST PAIN ; Start 01/30/17 at 05:30 Heparin Sodium (Porcine) (Heparin (5000 Units/0.5 ml)) 5,000 unit Q8 SC Last administered on 02/05/17 06:00; Admin Dose 5,000 UNIT; Start 02/01/17 at 18:00 Metoprolol Tartrate (Lopressor) 12.5 mg BID PRN PO BP>130 systolic; Start 02/02 at 12:00 Colchicine (Colchicine) 0.6 mg DAILY PO Last administered on 02/05/17 08:41; Admin Dose 0.6 MG; Start 02/03/17 at 09:00 Indomethacin (Indocin) 25 mg BID PO Last administered on 02/05/17 08:41; Admin Dose 25 MG; Start 02/02/17 at 21:00 Miscellaneous Information (Pending [facility] Order For Wound Care) This patient deleon... PRN PRN XX WOUND CARE; Start 02/02/17 at 17:30 Nystatin (Nystatin Powder) 1 applic BID TOP Last administered on 02/05/17 08: 42; Admin Dose 1 APPLIC; Start 02/02/17 at 21:00 Docusate Sodium/ Ferrous Fumarate (Abril-Sequels) 1 tab BID PO Last administered on 02/05/17 08:41; Admin Dose 1 TAB; Start 02/03/17 at 21:00 Hydromorphone HCl (Dilaudid) 1 mg Q6H PRN IV PAIN Last administered on 12:46; Admin Dose 1 MG; Start 02/04/17 at 14:30 Senna (Senokot) 2 tab BID PO ; Start 02/05/17 at 13:00 SUZIE DOHERTY MD Feb 05, 2017 14:12
--- NOTE | 2017-02-05 14:27 | CONS ---
Date/Time of Note Date/Time of Note DATE: 02/05/17 TIME: 14:23 Consult Date/Type/Reason Admit Date/Time Jan 30, 2017 at 02:47 Initial Consult Date 02/01/17 Type of Consultation: CARD Ordering Provider: SOLITARIO LAMBERT NP Subjective cardiology follow up note: d;w staff and rhythm was reviewed. Patient remained sinus rhythm with no evidence of atrial fibrillation. pt still complains of shortness of breath. bit it appear to be stable though. OBJECTIVE: General: MORBIDLY OBESE HEENT: NC/AT. pupils are equal. round. NECK: NO JVD. no stridor. CV: RRR. systolic murmur; no gallop or rubs. PULM: no wheezing or rhonchi. GI: obese. SOFT, NT, ND, no rebound or guarding Extremity: trace B/L LE edema. no clubbing. neuro: awake and alert, OX3. Psych: calm and pleasant rectal: deferred : normal Objective Vital Signs Date Time Temp Pulse Resp B/P Pulse Ox O2 Delivery O2 Flow Rate FiO2 02/05/17 13:33 3.0 02/05/17 12:10 72 02/05/17 11:07 98.2 19 114/74 96 02/05/17 04:00 Nasal Cannula 02/02/17 00:05 30 Intake and Output 02/04/17 02/04/17 02/05/17 15:00 23:00 07:00 Intake Total 800 ml Balance 800 ml Results/Medications Result Diagram: 02/05/17 0532 02/05/17 0532 Results 24 hrs Laboratory Tests Test 02/04/17 17:22 02/04/17 20:34 02/04/17 21:55 02/05/17 05:32 Bedside Glucose 138 126 Iron Level 20 L Total Iron Binding Capacity 351 Percent Iron Saturation 6 L White Blood Count 10.1 Red Blood Count 4.04 L Hemoglobin 9.1 L Hematocrit 31.4 L Mean Corpuscular Volume 77.7 L Mean Corpuscular Hemoglobin 22.5 L Mean Corpuscular Hemoglobin Concent 29.0 L Red Cell Distribution Width 16.7 H Platelet Count 488 H Mean Platelet Volume 9.4 Neutrophils % 71.8 Lymphocytes % 18.6 Monocytes % 6.7 Eosinophils % 1.4 Basophils % 0.5 Nucleated Red Blood Cells % 0.4 H Neutrophils # (Manual) 7.2 Lymphocytes # 1.9 Monocytes # 0.7 Eosinophils # 0.1 Basophils # 0.1 Nucleated Red Blood Cells # 0.0 Sodium Level 137 Potassium Level 5.2 H Chloride Level 97 Carbon Dioxide Level 25 Anion Gap 20 H Blood Urea Nitrogen 50 H Creatinine 1.82 H Glucose Level 137 Calcium Level 9.1 Phosphorus Level 4.6 Magnesium Level 2.7 H Test 02/05/17 07:38 02/05/17 11:24 Bedside Glucose 126 141 Medications Current Medications Lorazepam (Ativan) 0.5 mg Q8H PRN PO ANXIETY; Start 01/30/17 at 05:00 Ondansetron HCl (Zofran Inj) 4 mg Q6H PRN IV NAUSEA AND/OR VOMITING Last administered on 02/04/17 11:54; Admin Dose 4 MG; Start 01/30/17 at 05:00 Acetaminophen (Tylenol Tab) 650 mg Q6H PRN PO PAIN LEVEL 1-3 OR FEVER Last administered on 01/30/17 12:04; Admin Dose 650 MG; Start 01/30/17 at 05:00 Diagnostic Test (Pha) (Accu-Chek) 1 ea 02 XX Last administered on 02/05/17 02: 00; Admin Dose 1 EA; Start 01/31/17 at 02:00 Alprazolam (Xanax) 1 mg QHS PRN PO ANXIETY; Start 01/30/17 at 05:00 Benazepril HCl (Lotensin) 40 mg DAILY PO Last administered on 01/31/17 08:08; Admin Dose 40 MG; Start 01/30/17 at 09:00; Status Future Hold Docusate Sodium (Colace) 100 mg BID PO Last administered on 02/05/17 08:41; Admin Dose 100 MG; Start 01/30/17 at 09:00 Gabapentin (Neurontin) 100 mg BID PO Last administered on 02/05/17 08:41; Admin Dose 100 MG; Start 01/30/17 at 09:00 Acetaminophen/ Hydrocodone Bitart ([place] (10/325)) 1 tab Q6H PRN PO PAIN Last administered on 02/04/17 02:49; Admin Dose 1 TAB; Start 01/30/17 at 05:00 Miscellaneous Information 1 ea NOTE XX ; Start 01/30/17 at 05:00 Glucose (Glutose) 15 gm Q15M PRN PO DECREASED GLUCOSE; Start 01/30/17 at 05:00 Glucose (Glutose) 22.5 gm Q15M PRN PO DECREASED GLUCOSE; Start 01/30/17 at 05: 00 Dextrose (D50w Syringe) 25 ml Q15M PRN IV DECREASED GLUCOSE; Start 01/30/17 at 05:00 Dextrose (D50w Syringe) 50 ml Q15M PRN IV DECREASED GLUCOSE; Start 01/30/17 at 05:00 Glucagon (Glucagen) 1 mg Q15M PRN IM DECREASED GLUCOSE; Start 01/30/17 at 05:00 Glucose (Glutose) 15 gm Q15M PRN BUCCAL DECREASED GLUCOSE; Start 01/30/17 at 05 :00 Nitroglycerin (Nitroglycerin (Sl Tab) 0.4 Mg) 1 tab [id number] PRN SL CHEST PAIN ; Start 01/30/17 at 05:30 Heparin Sodium (Porcine) (Heparin (5000 Units/0.5 ml)) 5,000 unit Q8 SC Last administered on 02/05/17 06:00; Admin Dose 5,000 UNIT; Start 02/01/17 at 18:00 Metoprolol Tartrate (Lopressor) 12.5 mg BID PRN PO BP>130 systolic; Start 02/02 at 12:00 Colchicine (Colchicine) 0.6 mg DAILY PO Last administered on 02/05/17 08:41; Admin Dose 0.6 MG; Start 02/03/17 at 09:00 Indomethacin (Indocin) 25 mg BID PO Last administered on 02/05/17 08:41; Admin Dose 25 MG; Start 02/02/17 at 21:00 [facility]isc[facility] This patient deleon... PRN PRN XX WOUND CARE; Start 02/02/17 at 17:30 Nystatin (Nystatin Powder) 1 applic BID TOP Last administered on 02/05/17 08: 42; Admin Dose 1 APPLIC; Start 02/02/17 at 21:00 Docusate Sodium/ Ferrous Fumarate (Abril-Sequels) 1 tab BID PO Last administered on 02/05/17 08:41; Admin Dose 1 TAB; Start 02/03/17 at 21:00 Hydromorphone HCl (Dilaudid) 1 mg Q6H PRN IV PAIN Last administered on t 12:46; Admin Dose 1 MG; Start 02/04/17 at 14:30 Senna (Senokot) 2 tab BID PO ; Start 02/05/17 at 13:00 Assessment/Plan Chief Complaint/Hosp Course 1. moderate pericardial effusion: f/u with CT surgery rec 2. anemia 3. JANIS 4. morbid obesity 5. Chest pain: has resolved now. cont colchicine. f/u with renal rec. consider repeat echo on tuesday. f/u with CT surgery rec. but at this time does not have clinical signs of tamponade ( BP AND HR are stable ). FAUSTINO ACEVEDO MD FAC Problems: FAUSTINO ACEVEDO MD Feb 05, 2017 14:27
[2017-02-05] MEDS: SOD FERRIC GLUC COMPLX 125 MG in SOD CHLORIDE 0.9% 100 ML IVPB SCH (15:21)
[2017-02-05] MEDS: FUROSEMIDE 20 MG TAB PO SCH (15:22)
[2017-02-05] MEDS: SENNA TAB PO SCH ×2 (15:45→21:00)
--- NOTE | 2017-02-05 16:42 | PN ---
Date/Time of Note Date/Time of Note DATE: 02/05/17 TIME: 16:41 Assessment/Plan VTE Prophylaxis VTE Prophylaxis Intervention: SCD's Lines/Catheters [facility] Urinary Cath still in place: No Assessment/Plan Assessment/Plan 1. Chest pain. Serial troponins negative. 2D echocardiogram showing moderate sized pericardial effusion. This could be the reason for her underlying chest pain. Cardiology following the patient. 2. Moderate pericardial effusion. Status post evaluation by cardiac surgery. Nonsurgical management as per cardiac surgery. 3. Acute respiratory failure. Hypoxic and hypercapnic. The patient has known history of pulmonary embolism. The patient not a candidate for a CT angiogram because of the heavy weight. VQ scan has been ordered. The patient could not tolerate VQ scan because of orthopnea. B/L LE venous Doppler negative for any DVT . Being followed by Pulmonology. 4. Essential hypertension. Continue antihypertensives. 5. Depression. Continue antidepressants. 6. Type 2 diabetes mellitus. Will hold the metformin because of worsening renal function. Continue sliding scale insulin. 7. Acute kidney injury. Will hold her nephrotoxic medications. Nephrology following. 8. Microcytic, hypochromic anemia. Underlying iron deficiency. Continue the patient on iron supplements. 9. Obesity. BMI of 46.3 kg/m. Weight reduction advised. Subjective 24 Hr Interval Summary Free Text/Dictation No acute overnight events Exam/Review of Systems Vital Signs Vitals Vital Signs Date Time Temp Pulse Resp B/P Pulse Ox O2 Delivery O2 Flow Rate FiO2 02/05/17 16:07 74 02/05/17 15:59 98.2 16 122/60 92 02/05/17 13:33 3.0 02/05/17 04:00 Nasal Cannula 02/02/17 00:05 30 Intake and Output 02/04/17 02/04/17 02/05/17 15:00 23:00 07:00 Intake Total 800 ml Balance 800 ml Exam Constitutional: obese, other (No acute distress) Head: atraumatic, normocephalic Eyes: EOMI, PERRL Respiratory: diminished breath sounds Cardiovascular: nl pulses, regular rate and rhythm Gastrointestinal: non-tender, soft Extremities: normal pulses Results Result Diagram: 02/05/17 0532 02/05/17 0532 Results 24 hrs Laboratory Tests Test 02/04/17 17:22 02/04/17 20:34 02/04/17 21:55 02/05/17 05:32 Bedside Glucose 138 126 Iron Level 20 L Total Iron Binding Capacity 351 Percent Iron Saturation 6 L White Blood Count 10.1 Red Blood Count 4.04 L Hemoglobin 9.1 L Hematocrit 31.4 L Mean Corpuscular Volume 77.7 L Mean Corpuscular Hemoglobin 22.5 L Mean Corpuscular Hemoglobin Concent 29.0 L Red Cell Distribution Width 16.7 H Platelet Count 488 H Mean Platelet Volume 9.4 Neutrophils % 71.8 Lymphocytes % 18.6 Monocytes % 6.7 Eosinophils % 1.4 Basophils % 0.5 Nucleated Red Blood Cells % 0.4 H Neutrophils # (Manual) 7.2 Lymphocytes # 1.9 Monocytes # 0.7 Eosinophils # 0.1 Basophils # 0.1 Nucleated Red Blood Cells # 0.0 Sodium Level 137 Potassium Level 5.2 H Chloride Level 97 Carbon Dioxide Level 25 Anion Gap 20 H Blood Urea Nitrogen 50 H Creatinine 1.82 H Glucose Level 137 Calcium Level 9.1 Phosphorus Level 4.6 Magnesium Level 2.7 H Test 02/05/17 07:38 02/05/17 11:24 Bedside Glucose 126 141 Medications Medications Current Medications Lorazepam (Ativan) 0.5 mg Q8H PRN PO ANXIETY; Start 01/30/17 at 05:00 Ondansetron HCl (Zofran Inj) 4 mg Q6H PRN IV NAUSEA AND/OR VOMITING Last administered on 02/04/17 11:54; Admin Dose 4 MG; Start 01/30/17 at 05:00 Acetaminophen (Tylenol Tab) 650 mg Q6H PRN PO PAIN LEVEL 1-3 OR FEVER Last administered on 01/30/17 12:04; Admin Dose 650 MG; Start 01/30/17 at 05:00 Diagnostic Test (Pha) (Accu-Chek) 1 ea 02 XX Last administered on 02/05/17 02: 00; Admin Dose 1 EA; Start 01/31/17 at 02:00 Alprazolam (Xanax) 1 mg QHS PRN PO ANXIETY; Start 01/30/17 at 05:00 Benazepril HCl (Lotensin) 40 mg DAILY PO Last administered on 01/31/17 08:08; Admin Dose 40 MG; Start 01/30/17 at 09:00; Status Future Hold Docusate Sodium (Colace) 100 mg BID PO Last administered on 02/05/17 08:41; Admin Dose 100 MG; Start 01/30/17 at 09:00 Gabapentin (Neurontin) 100 mg BID PO Last administered on 02/05/17 08:41; Admin Dose 100 MG; Start 01/30/17 at 09:00 Acetaminophen/ Hydrocodone Bitart ([place] (10/325)) 1 tab Q6H PRN PO PAIN Last administered on 02/04/17 02:49; Admin Dose 1 TAB; Start 01/30/17 at 05:00 Miscellaneous Information 1 ea NOTE XX ; Start 01/30/17 at 05:00 Glucose (Glutose) 15 gm Q15M PRN PO DECREASED GLUCOSE; Start 01/30/17 at 05:00 Glucose (Glutose) 22.5 gm Q15M PRN PO DECREASED GLUCOSE; Start 01/30/17 at 05: 00 Dextrose (D50w Syringe) 25 ml Q15M PRN IV DECREASED GLUCOSE; Start 01/30/17 at 05:00 Dextrose (D50w Syringe) 50 ml Q15M PRN IV DECREASED GLUCOSE; Start 01/30/17 at 05:00 Glucagon (Glucagen) 1 mg Q15M PRN IM DECREASED GLUCOSE; Start 01/30/17 at 05:00 Glucose (Glutose) 15 gm Q15M PRN BUCCAL DECREASED GLUCOSE; Start 01/30/17 at 05 :00 Nitroglycerin (Nitroglycerin (Sl Tab) 0.4 Mg) 1 tab [id number] PRN SL CHEST PAIN ; Start 01/30/17 at 05:30 Heparin Sodium (Porcine) (Heparin (5000 Units/0.5 ml)) 5,000 unit Q8 SC Last administered on 02/05/17 14:24; Admin Dose 5,000 UNIT; Start 02/01/17 at 18:00 Metoprolol Tartrate (Lopressor) 12.5 mg BID PRN PO BP>130 systolic; Start 02/02 at 12:00 Colchicine (Colchicine) 0.6 mg DAILY PO Last administered on 02/05/17 08:41; Admin Dose 0.6 MG; Start 02/03/17 at 09:00 Indomethacin (Indocin) 25 mg BID PO Last administered on 02/05/17 08:41; Admin Dose 25 MG; Start 02/02/17 at 21:00 Miscellaneous Information [facility]) This patient deleon... PRN PRN XX WOUND CARE; Start 02/02/17 at 17:30 Nystatin (Nystatin Powder) 1 applic BID TOP Last administered on 02/05/17 08: 42; Admin Dose 1 APPLIC; Start 02/02/17 at 21:00 Docusate Sodium/ Ferrous Fumarate (Abril-Sequels) 1 tab BID PO Last administered on 02/05/17 08:41; Admin Dose 1 TAB; Start 02/03/17 at 21:00 Hydromorphone HCl (Dilaudid) 1 mg Q6H PRN IV PAIN Last administered on 12:46; Admin Dose 1 MG; Start 02/04/17 at 14:30 Senna (Senokot) 2 tab BID PO Last administered on 02/05/17 15:45; Admin Dose 2 TAB; Start 02/05/17 at 13:00 Furosemide 10 mg 10 mg DAILY PO Last administered on 02/05/17 15:22; Admin Dose 10 MG; Start 02/05/17 at 14:30 Ferric Sodium Gluconate Complex/ Sodium Chloride (Ferrlecit/NS) 110 ml @ 100 mls/hr Q24H IVPB Last administered on 02/05/17 15:21; Admin Dose 100 MLS/HR; Start 02/05/17 at 16:00; Stop 02/07/17 at 17:05 LENCHO SÁNCHEZ MD Feb 05, 2017 16:42
--- NOTE | 2017-02-05 17:38 | CONS ---
Date/Time of Note Date/Time of Note DATE: 02/05/17 TIME: 17:36 Consult Date/Type/Reason Admit Date/Time Jan 30, 2017 at 02:47 Initial Consult Date 02/01/17 Type of Consultation: Pulm Ordering Provider: SOLITARIO LAMBERT [employer]D CONSULTANT Subjective No overnight events. Objective Vital Signs Date Time Temp Pulse Resp B/P Pulse Ox O2 Delivery O2 Flow Rate FiO2 02/05/17 16:07 74 02/05/17 15:59 98.2 16 122/60 92 02/05/17 13:33 3.0 02/05/17 04:00 Nasal Cannula 02/02/17 00:05 30 Intake and Output 02/04/17 02/04/17 02/05/17 14:59 22:59 06:59 Intake Total 800 ml Balance 800 ml Exam NECK: Supple. No JVD, no lymphadenopathy. CARDIAC: S1, S2. No added sounds or murmurs. CHEST: Diminished air entry bilaterally. ABDOMEN: Obese, nontender. No guarding or rebound. EXTREMITIES: No cyanosis, + edema Results/Medications Result Diagram: 02/05/17 0532 02/05/17 0532 Results 24 hrs Laboratory Tests Test 02/04/17 20:34 02/04/17 21:55 02/05/17 05:32 02/05/17 07:38 Bedside Glucose 126 126 Iron Level 20 L Total Iron Binding Capacity 351 Percent Iron Saturation 6 L White Blood Count 10.1 Red Blood Count 4.04 L Hemoglobin 9.1 L Hematocrit 31.4 L Mean Corpuscular Volume 77.7 L Mean Corpuscular Hemoglobin 22.5 L Mean Corpuscular Hemoglobin Concent 29.0 L Red Cell Distribution Width 16.7 H Platelet Count 488 H Mean Platelet Volume 9.4 Neutrophils % 71.8 Lymphocytes % 18.6 Monocytes % 6.7 Eosinophils % 1.4 Basophils % 0.5 Nucleated Red Blood Cells % 0.4 H Neutrophils # (Manual) 7.2 Lymphocytes # 1.9 Monocytes # 0.7 Eosinophils # 0.1 Basophils # 0.1 Nucleated Red Blood Cells # 0.0 Sodium Level 137 Potassium Level 5.2 H Chloride Level 97 Carbon Dioxide Level 25 Anion Gap 20 H Blood Urea Nitrogen 50 H Creatinine 1.82 H Glucose Level 137 Calcium Level 9.1 Phosphorus Level 4.6 Magnesium Level 2.7 H Test 02/05/17 11:24 8/26/17 17:31 Bedside Glucose 141 120 Medications Current Medications Lorazepam (Ativan) 0.5 mg Q8H PRN PO ANXIETY; Start 01/30/17 at 05:00 Ondansetron HCl (Zofran Inj) 4 mg Q6H PRN IV NAUSEA AND/OR VOMITING Last administered on 02/04/17 11:54; Admin Dose 4 MG; Start 01/30/17 at 05:00 Acetaminophen (Tylenol Tab) 650 mg Q6H PRN PO PAIN LEVEL 1-3 OR FEVER Last administered on 01/30/17 12:04; Admin Dose 650 MG; Start 01/30/17 at 05:00 Diagnostic Test (Pha) (Accu-Chek) 1 ea 02 XX Last administered on 02/05/17 02: 00; Admin Dose 1 EA; Start 01/31/17 at 02:00 Alprazolam (Xanax) 1 mg QHS PRN PO ANXIETY; Start 01/30/17 at 05:00 Benazepril HCl (Lotensin) 40 mg DAILY PO Last administered on 01/31/17 08:08; Admin Dose 40 MG; Start 01/30/17 at 09:00; Status Future Hold Docusate Sodium (Colace) 100 mg BID PO Last administered on 02/05/17 08:41; Admin Dose 100 MG; Start 01/30/17 at 09:00 Gabapentin (Neurontin) 100 mg BID PO Last administered on 02/05/17 08:41; Admin Dose 100 MG; Start 01/30/17 at 09:00 Acetaminophen/ Hydrocodone Bitart ([place] (10/325)) 1 tab Q6H PRN PO PAIN Last administered on 02/04/17 02:49; Admin Dose 1 TAB; Start 01/30/17 at 05:00 Miscellaneous Information 1 ea NOTE XX ; Start 01/30/17 at 05:00 Glucose (Glutose) 15 gm Q15M PRN PO DECREASED GLUCOSE; Start 01/30/17 at 05:00 Glucose (Glutose) 22.5 gm Q15M PRN PO DECREASED GLUCOSE; Start 01/30/17 at 05: 00 Dextrose (D50w Syringe) 25 ml Q15M PRN IV DECREASED GLUCOSE; Start 01/30/17 at 05:00 Dextrose (D50w Syringe) 50 ml Q15M PRN IV DECREASED GLUCOSE; Start 01/30/17 at 05:00 Glucagon (Glucagen) 1 mg Q15M PRN IM DECREASED GLUCOSE; Start 01/30/17 at 05:00 Glucose (Glutose) 15 gm Q15M PRN BUCCAL DECREASED GLUCOSE; Start 01/30/17 at 05 :00 Nitroglycerin (Nitroglycerin (Sl Tab) 0.4 Mg) 1 tab [id number] PRN SL CHEST PAIN ; Start 01/30/17 at 05:30 Heparin Sodium (Porcine) (Heparin (5000 Units/0.5 ml)) 5,000 unit Q8 SC Last administered on 02/05/17 14:24; Admin Dose 5,000 UNIT; Start 02/01/17 at 18:00 Metoprolol Tartrate (Lopressor) 12.5 mg BID PRN PO BP>130 systolic; Start 02/02 at 12:00 Colchicine (Colchicine) 0.6 mg DAILY PO Last administered on 02/05/17 08:41; Admin Dose 0.6 MG; Start 02/03/17 at 09:00 Indomethacin (Indocin) 25 mg BID PO Last administered on 02/05/17 08:41; Admin Dose 25 MG; Start 02/02/17 at 21:00 Miscellaneous Information (Pending [facility] Order For Wound Care) This patient deleon... PRN PRN XX WOUND CARE; Start 02/02/17 at 17:30 Nystatin (Nystatin Powder) 1 applic BID TOP Last administered on 02/05/17 08: 42; Admin Dose 1 APPLIC; Start 02/02/17 at 21:00 Docusate Sodium/ Ferrous Fumarate (Abril-Sequels) 1 tab BID PO Last administered on 02/05/17 08:41; Admin Dose 1 TAB; Start 02/03/17 at 21:00 Hydromorphone HCl (Dilaudid) 1 mg Q6H PRN IV PAIN Last administered on 12:46; Admin Dose 1 MG; Start 02/04/17 at 14:30 Senna (Senokot) 2 tab BID PO Last administered on 02/05/17 15:45; Admin Dose 2 TAB; Start 02/05/17 at 13:00 Furosemide 10 mg 10 mg DAILY PO Last administered on 8/26/17at 15:22; Admin Dose 10 MG; Start 02/05/17 at 14:30 Ferric Sodium Gluconate Complex/ Sodium Chloride (Ferrlecit/NS) 110 ml @ 100 mls/hr Q24H IVPB Last administered on 02/05/17t 15:21; Admin Dose 100 MLS/HR; Start 02/05/17 at 16:00; Stop 02/07/17 at 17:05 Assessment/Plan Additional Assessment/Plan IMP: 1. Mild Hypoxemia--in patient with SHIRLEY/OHS 2. History of pulmonary embolism. U 3. History of psychiatric disorder. 4. SHIRLEY/OHS 5. Possible pericardial effusion. Cardiology recs. RECS: 1. Titrate FiO2 2. f/u TTE 3. Renal function testing 4. Nocturnal BiPaP KELLI JIMENEZ MD Feb 05, 2017 17:38
[2017-02-06] VITALS (13 sets, daily range): BP systolic 93–134; BP diastolic 55–74; PULSE 64–85; RESP 16–20
[2017-02-06] MEDS: HYDROmorphONE 1 MG/ML SYG IV PRN ×3 (00:38→22:26)
[2017-02-06] MEDS: ACCU-CHEK XX SCH (02:00)
[2017-02-06] MEDS: HEPARIN 5,000 UNIT/0.5 ML VIAL SC SCH ×3 (05:36→22:10)
[2017-02-06 07:08] LABS: ABNORMAL IP MESSAGE 1; BASOPHIL # 0.1 10^3/ul (0.0-0.1); BASOPHILS % 0.4 % (0.0-2.0); EOSINOPHILS # 0.2 10^3/ul (0.0-0.5); HEMATOCRIT 31.9 % (37.0-47.0); HEMOGLOBIN 9.1 g/dl (12.0-16.0); LYMPHOCYTES # 2.7 10^3/ul (0.8-2.9); LYMPHOCYTES % 23.4 % (15.0-51.0); MEAN CORPUSCULAR HGB CONC 28.5 g/dl (32.0-37.0); MEAN CORPUSCULAR VOLUME 77.2 fl (82.0-101.0); MEAN PLATELET VOLUME 9.4 fl (7.4-10.4); MONOCYTE # 0.8 10^3/ul (0.3-0.9); MONOCYTES % 7.2 % (0.0-11.0); NEUTROPHILS % 65.8 % (39.0-77.0); NUCLEATED RED BLOOD CELLS # 0.1 10^3/ul (0.0-0.0); NUCLEATED RED BLOOD CELLS% 0.5 /100WBC (0.0-0.0); PLATELET COUNT 518 10^3/UL (140-415); RED BLOOD COUNT 4.13 10^6/ul (4.20-5.40); RED CELL DISTRIBUTION WIDTH 17.2 % (11.5-14.5); WHITE BLOOD COUNT 11.4 10^3/ul (4.8-10.8)
[2017-02-06 07:17] LABS: POSITIVE DIFF @See below
[2017-02-06 07:43] LABS: CALCIUM 9.1 mg/dl (8.4-10.2); CREATININE 1.98 mg/dl (0.44-1.00); POTASSIUM 4.6 mmol/L (3.5-5.1)
[2017-02-06 07:46] LABS: MAGNESIUM 2.9 mg/dl (1.7-2.5); PHOSPHORUS 5.4 mg/dl (2.5-4.9)
[2017-02-06] MEDS: INSULIN ASPART [NOVOLOG] 3 ML PEN SC SCH ×4 (07:48→21:00)
[2017-02-06 07:50] LABS: ADD UMIC YES; UR ASCORBIC ACID NEGATIVE (NEGATIVE); UR BACTERIA FEW /HPF (NONE SEEN); UR BILIRUBIN (Dip) NEGATIVE (NEGATIVE); UR BLOOD (Dip) NEGATIVE (NEGATIVE); UR CLARITY CLEAR (CLEAR); UR COLOR YELLOW (YELLOW); UR GLUCOSE (Dip) NEGATIVE (NEGATIVE); UR KETONES (Dip) NEGATIVE (NEGATIVE); UR LEUKOCYTE ESTERASE (Dip) TRACE Leu/ul (NEGATIVE); UR NITRITE (Dip) NEGATIVE (NEGATIVE); UR RBC 1 /HPF (0-5); UR SPECIFIC GRAVITY (Dip) 1.017 (1.003-1.030); UR SQUAMOUS EPITHELIAL CELL FEW /HPF (FEW); UR TOTAL PROTEIN (Dip) NEGATIVE (NEGATIVE); UR UROBILINOGEN (Dip) NEGATIVE (NEGATIVE)
[2017-02-06] MEDS: FERROUS FUMARATE (SR) TAB PO SCH (08:51)
[2017-02-06] MEDS: INDOMETHACIN 25 MG PO SCH (08:51)
[2017-02-06] MEDS: GABAPENTIN 100 MG CAP PO SCH ×2 (08:52→22:07)
[2017-02-06] MEDS: COLCHICINE 0.6 MG TAB PO SCH (08:52)
[2017-02-06] MEDS: FUROSEMIDE 20 MG TAB PO SCH (08:53)
[2017-02-06] MEDS: SENNA TAB PO SCH ×2 (08:53→21:00)
[2017-02-06] MEDS: NYSTATIN 30 GM POWDER BTL TOP SCH ×2 (08:53→21:00)
[2017-02-06] MEDS: CALCIUM CARBONATE 500 MG CHEW TAB PO SCH ×3 (08:54→22:07)
[2017-02-06] MEDS: DOCUSATE SODIUM 100 MG CAP PO SCH ×2 (08:54→21:00)
--- NOTE | 2017-02-06 09:22 | PN ---
Date/Time of Note Date/Time of Note DATE: 02/06/17 TIME: 09:20 Assessment/Plan VTE Prophylaxis VTE Prophylaxis Intervention: heparin Lines/Catheters IV [facility] Type [facility]from [facility] Sal[facility] Lock Urinary Cath still in place: No Assessment/Plan Chief Complaint/Hosp Course 1. Chest pain. Serial troponins negative. 2D echocardiogram showing moderate sized pericardial effusion. This could be the reason for her underlying chest pain. Cardiology following the patient. 2. Moderate pericardial effusion. Status post evaluation by cardiac surgery. Nonsurgical management as per cardiac surgery. Repeat echo pending. 3. Acute respiratory failure. Hypoxic and hypercapnic. The patient has known history of pulmonary embolism. The patient not a candidate for a CT angiogram because of the heavy weight. VQ scan was ordered. The patient could not tolerate VQ scan because of orthopnea. B/L LE venous Doppler negative for any DVT . Being followed by Pulmonology. 4. Essential hypertension. Continue antihypertensives. 5. Depression. Continue antidepressants. 6. Type 2 diabetes mellitus. Will hold the metformin because of worsening renal function. Continue sliding scale insulin. 7. Acute kidney injury. Will use nephrotoxic medications cautiously. Nephrology following. 8. Microcytic, hypochromic anemia. Underlying iron deficiency. Continue the patient on iron supplements. 9. Obesity. BMI of 46.3 kg/m. Weight reduction advised. 10. Fluids, electrolytes, and nutrition. Carbohydrate controlled diet. 11. DVT prophylaxis. SQ heparin. 12. Plan. Continue current management. Await repeat 2D echocardiogram and further recommendations from consultants. Has home O2 arranged. Case discussed with Dr. Hernandez. Problems: Subjective 24 Hr Interval Summary Free Text/Dictation Complains of dizziness. Was hypotensive in the AM. Exam/Review of Systems Vital Signs Vitals Vital Signs Date Time Temp Pulse Resp B/P Pulse Ox O2 Delivery O2 Flow Rate FiO2 02/06/17 08:02 73 02/06/17 07:40 97.5 19 93/55 98 02/06/17 01:46 3.0 02/05/17 04:00 Nasal Cannula Intake and Output 02/05/17 02/05/17 02/06/17 15:00 23:00 07:00 Intake Total 400 ml 600 ml 600 ml Balance 400 ml 600 ml 600 ml Exam General: Morbidly obese 46 year-old female lying in bed in no apparent distress. HEENT: Normocephalic, atraumatic. Eyes: Anicteric sclerae, conjunctivae clear. ENT: Nasal septum midline, oral mucosa moist. Neck supple, no JVD noticed. Respiratory: Bilaterally diminished breath sounds. No use of accessory muscles of respiration. No adventitious breath sounds. Cardiovascular: S1, S2 heard. Distant heart sounds Abdomen: Soft, nontender, and nondistended. Bowel sounds positive in all 4 quadrants. Genitourinary: Deferred. Extremities: No cyanosis, no clubbing, no edema. Peripheral pulses palpable. Neurologic: Cranial nerves II through XII grossly intact. The patient is awake, alert, and oriented. Skin: Normal skin turgor. No skin rashes. Results Result Diagram: 02/06/17 0551 02/06/17 0551 Results 24 hrs Laboratory Tests Test 02/05/17 11:24 02/05/17 17:31 02/05/17 20:59 02/06/17 05:30 Bedside Glucose 141 120 112 Urine Color YELLOW Urine Clarity CLEAR Urine pH 6.0 Urine Specific [place] 1.017 Urine Ketones NEGATIVE Urine Nitrite NEGATIVE Urine Bilirubin NEGATIVE Urine Urobilinogen NEGATIVE Urine Leukocyte Esterase TRACE A Urine Microscopic RBC 1 Urine Microscopic WBC 2 Urine Squamous Epithelial Cells FEW Urine Bacteria FEW A Urine Hemoglobin NEGATIVE Urine Glucose NEGATIVE Urine Total Protein NEGATIVE Test 02/06/17 05:51 02/06/17 07:48 02/06/17 08:03 White Blood Count 11.4 H Red Blood Count 4.13 L Hemoglobin 9.1 L Hematocrit 31.9 L Mean Corpuscular Volume 77.2 L Mean Corpuscular Hemoglobin 22.0 L Mean Corpuscular Hemoglobin Concent 28.5 L Red Cell Distribution Width 17.2 H Platelet Count 518 H Mean Platelet Volume 9.4 Neutrophils % 65.8 Lymphocytes % 23.4 Monocytes % 7.2 Eosinophils % 2.0 Basophils % 0.4 Nucleated Red Blood Cells % 0.5 H Neutrophils # (Manual) 7.5 Lymphocytes # 2.7 Monocytes # 0.8 Eosinophils # 0.2 Basophils # 0.1 Nucleated Red Blood Cells # 0.1 H Sodium Level 141 Potassium Level 4.6 Chloride Level 98 Carbon Dioxide Level 29 Anion Gap 19 H Blood Urea Nitrogen 56 H Creatinine 1.98 H Glucose Level 109 Calcium Level 9.1 Phosphorus Level 5.4 H Magnesium Level 2.9 H Bedside Glucose 128 Lab Scanned Report REFERENCE LAB Medications Medications Current Medications Lorazepam (Ativan) 0.5 mg Q8H PRN PO ANXIETY; Start 01/30/17 at 05:00 Ondansetron HCl (Zofran Inj) 4 mg Q6H PRN IV NAUSEA AND/OR VOMITING Last administered on 02/04/17 11:54; Admin Dose 4 MG; Start 01/30/17 at 05:00 Acetaminophen (Tylenol Tab) 650 mg Q6H PRN PO PAIN LEVEL 1-3 OR FEVER Last administered on 01/30/17 12:04; Admin Dose 650 MG; Start 01/30/17 at 05:00 Diagnostic Test (Pha) (Accu-Chek) 1 ea 02 XX Last administered on 02/05/17 02: 00; Admin Dose 1 EA; Start 01/31/17 at 02:00 Alprazolam (Xanax) 1 mg QHS PRN PO ANXIETY; Start 01/30/17 at 05:00 Benazepril HCl (Lotensin) 40 mg DAILY PO Last administered on 01/31/17 08:08; Admin Dose 40 MG; Start 01/30/17 at 09:00; Status Future Hold Docusate Sodium (Colace) 100 mg BID PO Last administered on 02/05/17 08:41; Admin Dose 100 MG; Start 01/30/17 at 09:00 Gabapentin (Neurontin) 100 mg BID PO Last administered on 02/06/17 08:52; Admin Dose 100 MG; Start 01/30/17 at 09:00 Acetaminophen/ Hydrocodone Bitart ([place] (10/325)) 1 tab Q6H PRN PO PAIN Last administered on 02/04/17 02:49; Admin Dose 1 TAB; Start 01/30/17 at 05:00 Miscellaneous Information 1 ea NOTE XX ; Start 01/30/17 at 05:00 Glucose (Glutose) 15 gm Q15M PRN PO DECREASED GLUCOSE; Start 01/30/17 at 05:00 Glucose (Glutose) 22.5 gm Q15M PRN PO DECREASED GLUCOSE; Start 01/30/17 at 05: 00 Dextrose (D50w Syringe) 25 ml Q15M PRN IV DECREASED GLUCOSE; Start 01/30/17 at 05:00 Dextrose (D50w Syringe) 50 ml Q15M PRN IV DECREASED GLUCOSE; Start 01/30/17 at 05:00 Glucagon (Glucagen) 1 mg Q15M PRN IM DECREASED GLUCOSE; Start 01/30/17 at 05:00 Glucose (Glutose) 15 gm Q15M PRN BUCCAL DECREASED GLUCOSE; Start 01/30/17 at 05 :00 Nitroglycerin (Nitroglycerin (Sl Tab) 0.4 Mg) 1 tab [id number] PRN SL CHEST PAIN ; Start 01/30/17 at 05:30 Heparin Sodium (Porcine) (Heparin (5000 Units/0.5 ml)) 5,000 unit Q8 SC Last administered on 02/06/17 05:36; Admin Dose 5,000 UNIT; Start 02/01/17 at 18:00 Metoprolol Tartrate (Lopressor) 12.5 mg BID PRN PO BP>130 systolic; Start 02/02 at 12:00 Colchicine (Colchicine) 0.6 mg DAILY PO Last administered on 02/06/17 08:52; Admin Dose 0.6 MG; Start 02/03/17 at 09:00 Indomethacin (Indocin) 25 mg BID PO Last administered on 02/06/17 08:51; Admin Dose 25 MG; Start 02/02/17 at 21:00 Miscellaneous Information (Pending [facility] Order For Wound Care) This patient deleon... PRN PRN XX WOUND CARE; Start 02/02/17 at 17:30 Nystatin (Nystatin Powder) 1 applic BID TOP Last administered on 02/06/17 08: 53; Admin Dose 1 APPLIC; Start 02/02/17 at 21:00 Docusate Sodium/ Ferrous Fumarate (Abril-Sequels) 1 tab BID PO Last administered on 02/06/17 08:51; Admin Dose 1 TAB; Start 02/03/17 at 21:00 Hydromorphone HCl (Dilaudid) 1 mg Q6H PRN IV PAIN Last administered on 00:38; Admin Dose 1 MG; Start 02/04/17 at 14:30 Senna (Senokot) 2 tab BID PO Last administered on 02/05/17 15:45; Admin Dose 2 TAB; Start 02/05/17 at 13:00 Furosemide 10 mg 10 mg DAILY PO Last administered on 02/05/17 15:22; Admin Dose 10 MG; Start 02/05/17 at 14:30 Ferric Sodium Gluconate Complex/ Sodium Chloride (Ferrlecit/NS) 110 ml @ 100 mls/hr Q24H IVPB Last administered on 02/05/17t 15:21; Admin Dose 100 MLS/HR; Start 02/05/17 at 16:00; Stop 02/07/17 at 17:05 SOLITARIO LAMBERT NP Feb 06, 2017 09:22
--- NOTE | 2017-02-06 10:36 | CONS ---
Date/Time of Note Date/Time of Note DATE: 02/06/17 TIME: 10:29 Assessment/Plan Assessment/Plan Additional Assessment/Plan Must dc Indomethacin in face of rising SCreat.Pt tolerating IV Iron, may need to continue because of very low tsat Cont'd Hospitalization Reason: await cardiac plans re pericardial effisuion Consultation Date/Type/Reason Admit Date/Time Jan 30, 2017 at 02:47 Initial Consult Date 02/01/17 Type of Consultation: renal Referring Provider: SOLITARIO LAMBERT [employer] REFEREE 24 HR Interval Summary Free Text/Dictation stable Exam/Review of Systems Vital Signs Vitals Vital Signs Date Time Temp Pulse Resp B/P Pulse Ox O2 Delivery O2 Flow Rate FiO2 02/06/17 08:02 73 02/06/17 07:40 97.5 19 93/55 98 02/06/17 01:46 3.0 02/05/17 04:00 Nasal Cannula Intake and Output 02/05/17 02/05/17 02/06/17 15:00 23:00 07:00 Intake Total 400 ml 600 ml 600 ml Balance 400 ml 600 ml 600 ml Exam Output & Wt not available Constitutional: alert, obese, oriented, well developed Psych: nl mood/affect, no complaints Head: atraumatic, normocephalic Eyes: EOMI, PERRL, nl conjunctiva, nl lids, nl sclera ENMT: nl external ears & nose, nl lips & teeth, nl nasal mucosa & septum Neck: non-tender, supple Respiratory: clear to auscultation, normal air movement Cardiovascular: nl pulses, regular rate and rhythm Gastrointestinal: nl liver, spleen, non-tender, soft Musculoskeletal: nl extremities to inspection, nl gait and stance Extremities: normal pulses Neurological: DISH STACKER II-XII intact, nl mental status, nl speech, nl strength Skin: nl turgor, other (psoriasis), No rash or lesions Lymph: nl lymph nodes Results screat remains high Result Diagram: 02/06/17 0551 02/06/17 0551 Results 24 hrs Laboratory Tests Test 02/05/17 11:24 02/05/17 17:31 02/05/17 20:59 02/06/17 05:30 Bedside Glucose 141 120 112 Urine Color YELLOW Urine Clarity CLEAR Urine pH 6.0 Urine Specific [place] 1.017 Urine Ketones NEGATIVE Urine Nitrite NEGATIVE Urine Bilirubin NEGATIVE Urine Urobilinogen NEGATIVE Urine Leukocyte Esterase TRACE A Urine Microscopic RBC 1 Urine Microscopic WBC 2 Urine Squamous Epithelial Cells FEW Urine Bacteria FEW A Urine Hemoglobin NEGATIVE Urine Glucose NEGATIVE Urine Total Protein NEGATIVE Test 02/06/17 05:51 02/06/17 07:48 02/06/17 08:03 White Blood Count 11.4 H Red Blood Count 4.13 L Hemoglobin 9.1 L Hematocrit 31.9 L Mean Corpuscular Volume 77.2 L Mean Corpuscular Hemoglobin 22.0 L Mean Corpuscular Hemoglobin Concent 28.5 L Red Cell Distribution Width 17.2 H Platelet Count 518 H Mean Platelet Volume 9.4 Neutrophils % 65.8 Lymphocytes % 23.4 Monocytes % 7.2 Eosinophils % 2.0 Basophils % 0.4 Nucleated Red Blood Cells % 0.5 H Neutrophils # (Manual) 7.5 Lymphocytes # 2.7 Monocytes # 0.8 Eosinophils # 0.2 Basophils # 0.1 Nucleated Red Blood Cells # 0.1 H Sodium Level 141 Potassium Level 4.6 Chloride Level 98 Carbon Dioxide Level 29 Anion Gap 19 H Blood Urea Nitrogen 56 H Creatinine 1.98 H Glucose Level 109 Calcium Level 9.1 Phosphorus Level 5.4 H Magnesium Level 2.9 H Bedside Glucose 128 Lab Scanned Report REFERENCE LAB Medications Medications Current Medications Lorazepam (Ativan) 0.5 mg Q8H PRN PO ANXIETY; Start 01/30/17 at 05:00 Ondansetron HCl (Zofran Inj) 4 mg Q6H PRN IV NAUSEA AND/OR VOMITING Last administered on 02/04/17 11:54; Admin Dose 4 MG; Start 01/30/17 at 05:00 Acetaminophen (Tylenol Tab) 650 mg Q6H PRN PO PAIN LEVEL 1-3 OR FEVER Last administered on 01/30/17 12:04; Admin Dose 650 MG; Start 01/30/17 at 05:00 Diagnostic Test (Pha) (Accu-Chek) 1 ea 02 XX Last administered on 02/05/17 02: 00; Admin Dose 1 EA; Start 01/31/17 at 02:00 Alprazolam (Xanax) 1 mg QHS PRN PO ANXIETY; Start 01/30/17 at 05:00 Benazepril HCl (Lotensin) 40 mg DAILY PO Last administered on 01/31/17 08:08; Admin Dose 40 MG; Start 01/30/17 at 09:00; Status Future Hold Docusate Sodium (Colace) 100 mg BID PO Last administered on 02/05/17 08:41; Admin Dose 100 MG; Start 01/30/17 at 09:00 Gabapentin (Neurontin) 100 mg BID PO Last administered on 02/06/17 08:52; Admin Dose 100 MG; Start 01/30/17 at 09:00 Acetaminophen/ Hydrocodone Bitart ([place] (10/325)) 1 tab Q6H PRN PO PAIN Last administered on 02/04/17 02:49; Admin Dose 1 TAB; Start 01/30/17 at 05:00 Miscellaneous Information 1 ea NOTE XX ; Start 01/30/17 at 05:00 Glucose (Glutose) 15 gm Q15M PRN PO DECREASED GLUCOSE; Start 01/30/17 at 05:00 Glucose (Glutose) 22.5 gm Q15M PRN PO DECREASED GLUCOSE; Start 01/30/17 at 05: 00 Dextrose (D50w Syringe) 25 ml Q15M PRN IV DECREASED GLUCOSE; Start 01/30/17 at 05:00 Dextrose (D50w Syringe) 50 ml Q15M PRN IV DECREASED GLUCOSE; Start 01/30/17 at 05:00 Glucagon (Glucagen) 1 mg Q15M PRN IM DECREASED GLUCOSE; Start 01/30/17 at 05:00 Glucose (Glutose) 15 gm Q15M PRN BUCCAL DECREASED GLUCOSE; Start 01/30/17 at 05 :00 Nitroglycerin (Nitroglycerin (Sl Tab) 0.4 Mg) 1 tab [id number] PRN SL CHEST PAIN ; Start 01/30/17 at 05:30 Heparin Sodium (Porcine) (Heparin (5000 Units/0.5 ml)) 5,000 unit Q8 SC Last administered on 02/06/17 05:36; Admin Dose 5,000 UNIT; Start 02/01/17 at 18:00 Metoprolol Tartrate (Lopressor) 12.5 mg BID PRN PO BP>130 systolic; Start 02/02 at 12:00 Colchicine (Colchicine) 0.6 mg DAILY PO Last administered on 02/06/17 08:52; Admin Dose 0.6 MG; Start 02/03/17 at 09:00 Indomethacin (Indocin) 25 mg BID PO Last administered on 02/06/17 08:51; Admin Dose 25 MG; Start 02/02/17 at 21:00 Miscellaneous Information (Pending Santyl Order For Wound Care) This patient deleon... PRN PRN XX WOUND CARE; Start 02/02/17 at 17:30 Nystatin (Nystatin Powder) 1 applic BID TOP Last administered on 02/06/17 08: 53; Admin Dose 1 APPLIC; Start 02/02/17 at 21:00 Docusate Sodium/ Ferrous Fumarate (Abril-Sequels) 1 tab BID PO Last administered on 02/06/17 08:51; Admin Dose 1 TAB; Start 02/03/17 at 21:00 Hydromorphone HCl (Dilaudid) 1 mg Q6H PRN IV PAIN Last administered on 00:38; Admin Dose 1 MG; Start 02/04/17 at 14:30 Senna (Senokot) 2 tab BID PO Last administered on 02/05/17 15:45; Admin Dose 2 TAB; Start 02/05/17 at 13:00 Furosemide 10 mg 10 mg DAILY PO Last administered on 02/05/17 15:22; Admin Dose 10 MG; Start 02/05/17 at 14:30 Ferric Sodium Gluconate Complex/ Sodium Chloride (Ferrlecit/NS) 110 ml @ 100 mls/hr Q24H IVPB Last administered on 02/05/17 15:21; Admin Dose 100 MLS/HR; Start 02/05/17 at 16:00; Stop 02/07/17 at 17:05 SUZIE DOHERTY MD Feb 06, 2017 10:36
[2017-02-06] MEDS: FERROUS GLUCONATE (EC) 325 MG TAB PO SCH ×2 (13:05→22:07)
--- NOTE | 2017-02-06 14:20 | CONS ---
Date/Time of Note Date/Time of Note DATE: 02/06/17 TIME: 14:19 Consult Date/Type/Reason Admit Date/Time Jan 30, 2017 at 02:47 Initial Consult Date 02/01/17 Type of Consultation: CARDIOGLOY Ordering Provider: SOLITARIO LAMBERT NP Subjective cardiology follow up note: d;w staff and rhythm was reviewed. Patient remained sinus rhythm with no evidence of atrial fibrillation. pt still complains of shortness of breath. it appear to be stable though. OBJECTIVE: General: MORBIDLY OBESE HEENT: NC/AT. pupils are equal. round. NECK: NO JVD. no stridor. CV: RRR. systolic murmur; no gallop or rubs. PULM: no wheezing or rhonchi. GI: obese. SOFT, NT, ND, no rebound or guarding Extremity: trace B/L LE edema. no clubbing. neuro: awake and alert, OX3. Psych: calm and pleasant rectal: deferred : normal Objective Vital Signs Date Time Temp Pulse Resp B/P Pulse Ox O2 Delivery O2 Flow Rate FiO2 02/06/17 13:54 3.0 02/06/17 12:03 98.4 73 18 116/73 99 02/06/17 08:10 Nasal Cannula Intake and Output 02/05/17 02/05/17 02/06/17 15:00 23:00 07:00 Intake Total 400 ml 600 ml 600 ml Balance 400 ml 600 ml 600 ml Results/Medications Result Diagram: 02/06/17 0551 02/06/17 0551 Results 24 hrs Laboratory Tests Test 02/05/17 17:31 02/05/17 20:59 02/06/17 05:30 02/06/17 05:51 Bedside Glucose 120 112 Urine Color YELLOW Urine Clarity CLEAR Urine pH 6.0 Urine Specific [place] 1.017 Urine Ketones NEGATIVE Urine Nitrite NEGATIVE Urine Bilirubin NEGATIVE Urine Urobilinogen NEGATIVE Urine Leukocyte Esterase TRACE A Urine Microscopic RBC 1 Urine Microscopic WBC 2 Urine Squamous Epithelial Cells FEW Urine Bacteria FEW A Urine Hemoglobin NEGATIVE Urine Glucose NEGATIVE Urine Total Protein NEGATIVE White Blood Count 11.4 H Red Blood Count 4.13 L Hemoglobin 9.1 L Hematocrit 31.9 L Mean Corpuscular Volume 77.2 L Mean Corpuscular Hemoglobin 22.0 L Mean Corpuscular Hemoglobin Concent 28.5 L Red Cell Distribution Width 17.2 H Platelet Count 518 H Mean Platelet Volume 9.4 Neutrophils % 65.8 Lymphocytes % 23.4 Monocytes % 7.2 Eosinophils % 2.0 Basophils % 0.4 Nucleated Red Blood Cells % 0.5 H Neutrophils # (Manual) 7.5 Lymphocytes # 2.7 Monocytes # 0.8 Eosinophils # 0.2 Basophils # 0.1 Nucleated Red Blood Cells # 0.1 H Sodium Level 141 Potassium Level 4.6 Chloride Level 98 Carbon Dioxide Level 29 Anion Gap 19 H Blood Urea Nitrogen 56 H Creatinine 1.98 H Glucose Level 109 Calcium Level 9.1 Phosphorus Level 5.4 H Magnesium Level 2.9 H Test 02/06/17 07:48 02/06/17 08:03 02/06/17 11:51 Bedside Glucose 128 163 Lab Scanned Report REFERENCE LAB Medications Current Medications Lorazepam (Ativan) 0.5 mg Q8H PRN PO ANXIETY; Start 01/30/17 at 05:00 Ondansetron HCl (Zofran Inj) 4 mg Q6H PRN IV NAUSEA AND/OR VOMITING Last administered on 02/04/17 11:54; Admin Dose 4 MG; Start 01/30/17 at 05:00 Acetaminophen (Tylenol Tab) 650 mg Q6H PRN PO PAIN LEVEL 1-3 OR FEVER Last administered on 01/30/17 12:04; Admin Dose 650 MG; Start 01/30/17 at 05:00 Diagnostic Test (Pha) (Accu-Chek) 1 ea 02 XX Last administered on 02/05/17 02: 00; Admin Dose 1 EA; Start 01/31/17 at 02:00 Alprazolam (Xanax) 1 mg QHS PRN PO ANXIETY; Start 01/30/17 at 05:00 Benazepril HCl (Lotensin) 40 mg DAILY PO Last administered on 01/31/17 08:08; Admin Dose 40 MG; Start 01/30/17 at 09:00; Status Future Hold Docusate Sodium (Colace) 100 mg BID PO Last administered on 02/05/17 08:41; Admin Dose 100 MG; Start 01/30/17 at 09:00 Gabapentin (Neurontin) 100 mg BID PO Last administered on 02/06/17 08:52; Admin Dose 100 MG; Start 01/30/17 at 09:00 Acetaminophen/ Hydrocodone Bitart ([place] (10/325)) 1 tab Q6H PRN PO PAIN Last administered on 02/04/17 02:49; Admin Dose 1 TAB; Start 01/30/17 at 05:00 Miscellaneous Information 1 ea NOTE XX ; Start 01/30/17 at 05:00 Glucose (Glutose) 15 gm Q15M PRN PO DECREASED GLUCOSE; Start 01/30/17 at 05:00 Glucose (Glutose) 22.5 gm Q15M PRN PO DECREASED GLUCOSE; Start 01/30/17 at 05: 00 Dextrose (D50w Syringe) 25 ml Q15M PRN IV DECREASED GLUCOSE; Start 01/30/17 at 05:00 Dextrose (D50w Syringe) 50 ml Q15M PRN IV DECREASED GLUCOSE; Start 01/30/17 at 05:00 Glucagon (Glucagen) 1 mg Q15M PRN IM DECREASED GLUCOSE; Start 01/30/17 at 05:00 Glucose (Glutose) 15 gm Q15M PRN BUCCAL DECREASED GLUCOSE; Start 01/30/17 at 05 :00 Nitroglycerin (Nitroglycerin (Sl Tab) 0.4 Mg) 1 tab [id number] PRN SL CHEST PAIN ; Start 01/30/17 at 05:30 Heparin Sodium (Porcine) (Heparin (5000 Units/0.5 ml)) 5,000 unit Q8 SC Last administered on 02/06/17 13:09; Admin Dose 5,000 UNIT; Start 02/01/17 at 18:00 Metoprolol Tartrate (Lopressor) 12.5 mg BID PRN PO BP>130 systolic; Start 02/02 at 12:00 Colchicine (Colchicine) 0.6 mg DAILY PO Last administered on 02/06/17 08:52; Admin Dose 0.6 MG; Start 02/03/17 at 09:00 Miscellaneous Information [facility] This patient deleon... PRN PRN XX WOUND CARE; Start 02/02/17 at 17:30 Nystatin (Nystatin Powder) 1 applic BID TOP Last administered on 02/06/17 08: 53; Admin Dose 1 APPLIC; Start 02/02/17 at 21:00 Hydromorphone HCl (Dilaudid) 1 mg Q6H PRN IV PAIN Last administered on 8/27/ 17at 12:37; Admin Dose 1 MG; Start 02/04/17 at 14:30 Senna (Senokot) 2 tab BID PO Last administered on 02/05/17 15:45; Admin Dose 2 TAB; Start 02/05/17 at 13:00 Furosemide 10 mg 10 mg DAILY PO Last administered on 02/05/17 15:22; Admin Dose 10 MG; Start 02/05/17 at 14:30 Ferric Sodium Gluconate Complex/ Sodium Chloride (Ferrlecit/NS) 110 ml @ 100 mls/hr Q24H IVPB Last administered on 02/05/17 15:21; Admin Dose 100 MLS/HR; Start 02/05/17 at 16:00; Stop 02/07/17 at 17:05 Ferrous Gluconate (Fergon) 325 mg TID PO Last administered on 02/06/17 13:05; Admin Dose 325 MG; Start 02/06/17 at 13:00 Assessment/Plan Chief Complaint/Hosp Course 1. moderate pericardial effusion: f/u with CT surgery rec 2. anemia 3. JANIS 4. morbid obesity 5. Chest pain: has resolved now. cont colchicine. f/u with renal rec. repeat echo on tuesday. f/u with CT surgery rec. Dr Schwab or associates will follow up tomorrow FAUSTINO ACEVEDO MD [facility] Problems: FAUSTINO ACEVEDO MD Feb 06, 2017 14:20
[2017-02-06] MEDS: SOD FERRIC GLUC COMPLX 125 MG in SOD CHLORIDE 0.9% 100 ML IVPB SCH (16:00)
--- NOTE | 2017-02-06 19:20 | CONS ---
Date/Time of Note Date/Time of Note DATE: 02/06/17 TIME: 19:19 Consult Date/Type/Reason Admit Date/Time Jan 30, 2017 at 02:47 Initial Consult Date 02/01/17 Type of Consultation: Pulm Ordering Provider: SOLITARIO LAMBERT NP Subjective No events. Objective Vital Signs Date Time Temp Pulse Resp B/P Pulse Ox O2 Delivery O2 Flow Rate FiO2 02/06/17 16:07 76 02/06/17 15:27 98.6 16 124/67 96 02/06/17 13:54 3.0 02/06/17 08:10 Nasal Cannula Intake and Output 02/05/17 02/05/17 02/06/17 15:00 23:00 07:00 Intake Total 400 ml 600 ml 600 ml Balance 400 ml 600 ml 600 ml Exam NECK: Supple. No JVD, no lymphadenopathy. CARDIAC: S1, S2. No added sounds or murmurs. CHEST: Diminished air entry bilaterally. ABDOMEN: Obese, nontender. No guarding or rebound. EXTREMITIES: No cyanosis, + edema Results/Medications Result Diagram: 02/06/17 0551 02/06/17 0551 Results 24 hrs Laboratory Tests Test 02/05/17 20:59 02/06/17 05:30 02/06/17 05:51 02/06/17 07:48 Bedside Glucose 112 128 Urine Color YELLOW Urine Clarity CLEAR Urine pH 6.0 Urine Specific [place] 1.017 Urine Ketones NEGATIVE Urine Nitrite NEGATIVE Urine Bilirubin NEGATIVE Urine Urobilinogen NEGATIVE Urine Leukocyte Esterase TRACE A Urine Microscopic RBC 1 Urine Microscopic WBC 2 Urine Squamous Epithelial Cells FEW Urine Bacteria FEW A Urine Hemoglobin NEGATIVE Urine Glucose NEGATIVE Urine Total Protein NEGATIVE White Blood Count 11.4 H Red Blood Count 4.13 L Hemoglobin 9.1 L Hematocrit 31.9 L Mean Corpuscular Volume 77.2 L Mean Corpuscular Hemoglobin 22.0 L Mean Corpuscular Hemoglobin Concent 28.5 L Red Cell Distribution Width 17.2 H Platelet Count 518 H Mean Platelet Volume 9.4 Neutrophils % 65.8 Lymphocytes % 23.4 Monocytes % 7.2 Eosinophils % 2.0 Basophils % 0.4 Nucleated Red Blood Cells % 0.5 H Neutrophils # (Manual) 7.5 Lymphocytes # 2.7 Monocytes # 0.8 Eosinophils # 0.2 Basophils # 0.1 Nucleated Red Blood Cells # 0.1 H Sodium Level 141 Potassium Level 4.6 Chloride Level 98 Carbon Dioxide Level 29 Anion Gap 19 H Blood Urea Nitrogen 56 H Creatinine 1.98 H Glucose Level 109 Calcium Level 9.1 Phosphorus Level 5.4 H Magnesium Level 2.9 H Test 02/06/17 08:03 02/06/17 11:51 02/06/17 17:14 Lab Scanned Report REFERENCE LAB Bedside Glucose 163 130 Medications Current Medications Lorazepam (Ativan) 0.5 mg Q8H PRN PO ANXIETY; Start 01/30/17 at 05:00 Ondansetron HCl (Zofran Inj) 4 mg Q6H PRN IV NAUSEA AND/OR VOMITING Last administered on 02/04/17 11:54; Admin Dose 4 MG; Start 01/30/17 at 05:00 Acetaminophen (Tylenol Tab) 650 mg Q6H PRN PO PAIN LEVEL 1-3 OR FEVER Last administered on 01/30/17 12:04; Admin Dose 650 MG; Start 01/30/17 at 05:00 Diagnostic Test (Pha) (Accu-Chek) 1 ea 02 XX Last administered on 02/05/17 02: 00; Admin Dose 1 EA; Start 01/31/17 at 02:00 Alprazolam (Xanax) 1 mg QHS PRN PO ANXIETY; Start 01/30/17 at 05:00 Benazepril HCl (Lotensin) 40 mg DAILY PO Last administered on 01/31/17 08:08; Admin Dose 40 MG; Start 01/30/17 at 09:00; Status Future Hold Docusate Sodium (Colace) 100 mg BID PO Last administered on 02/05/17 08:41; Admin Dose 100 MG; Start 01/30/17 at 09:00 Gabapentin (Neurontin) 100 mg BID PO Last administered on 02/06/17 08:52; Admin Dose 100 MG; Start 01/30/17 at 09:00 Acetaminophen/ Hydrocodone Bitart ([place] (10325)) 1 tab Q6H PRN PO PAIN Last administered on 02/04/17 02:49; Admin Dose 1 TAB; Start 01/30/17 at 05:00 Miscellaneous Information 1 ea NOTE XX ; Start 01/30/17 at 05:00 Glucose (Glutose) 15 gm Q15M PRN PO DECREASED GLUCOSE; Start 01/30/17 at 05:00 Glucose (Glutose) 22.5 gm Q15M PRN PO DECREASED GLUCOSE; Start 01/30/17 at 05: 00 Dextrose (D50w Syringe) 25 ml Q15M PRN IV DECREASED GLUCOSE; Start 01/30/17 at 05:00 Dextrose (D50w Syringe) 50 ml Q15M PRN IV DECREASED GLUCOSE; Start 01/30/17 at 05:00 Glucagon (Glucagen) 1 mg Q15M PRN IM DECREASED GLUCOSE; Start 01/30/17 at 05:00 Glucose (Glutose) 15 gm Q15M PRN BUCCAL DECREASED GLUCOSE; Start 01/30/17 at 05 :00 Nitroglycerin (Nitroglycerin (Sl Tab) 0.4 Mg) 1 tab [id number] PRN SL CHEST PAIN ; Start 01/30/17 at 05:30 Heparin Sodium (Porcine) (Heparin (5000 Units/0.5 ml)) 5,000 unit Q8 SC Last administered on 02/06/17 13:09; Admin Dose 5,000 UNIT; Start 02/01/17 at 18:00 Metoprolol Tartrate (Lopressor) 12.5 mg BID PRN PO BP>130 systolic; Start 02/02 at 12:00 Colchicine (Colchicine) 0.6 mg DAILY PO Last administered on 02/06/17 08:52; Admin Dose 0.6 MG; Start 02/03/17 at 09:00 Miscellaneous Information [facility] This patient deleon... PRN PRN XX WOUND CARE; Start 02/02/17 at 17:30 Nystatin (Nystatin Powder) 1 applic BID TOP Last administered on 02/06/17 08: 53; Admin Dose 1 APPLIC; Start 02/02/17 at 21:00 Hydromorphone HCl (Dilaudid) 1 mg Q6H PRN IV PAIN Last administered on 12:37; Admin Dose 1 MG; Start 02/04/17 at 14:30 Senna (Senokot) 2 tab BID PO Last administered on 02/05/17 15:45; Admin Dose 2 TAB; Start 02/05/17 at 13:00 Furosemide 10 mg 10 mg DAILY PO Last administered on 02/05/17 15:22; Admin Dose 10 MG; Start 02/05/17 at 14:30 Ferric Sodium Gluconate Complex/ Sodium Chloride (Ferrlecit/NS) 110 ml @ 100 mls/hr Q24H IVPB Last administered on 02/05/17 15:21; Admin Dose 100 MLS/HR; Start 02/05/17 at 16:00; Stop 02/07/17 at 17:05 Ferrous Gluconate (Fergon) 325 mg TID PO Last administered on 02/06/17 13:05; Admin Dose 325 MG; Start 02/06/17 at 13:00 Assessment/Plan Additional Assessment/Plan IMP: 1. Mild Hypoxemia--in patient with SHIRLEY/OHS 2. History of pulmonary embolism. U 3. History of psychiatric disorder. 4. SHIRLEY/OHS 5. Pericardial effusion. RECS: 1. Titrate FiO2 2. f/u repeat TTE 3. Renal function testing 4. Nocturnal BiPAP KELLI JIMENEZ MD Feb 06, 2017 19:20
[2017-02-07] VITALS (12 sets, daily range): BP systolic 106–128; BP diastolic 63–81; PULSE 76–95; RESP 16–20
[2017-02-07] MEDS: ACCU-CHEK XX SCH (02:00)
[2017-02-07] MEDS: HEPARIN 5,000 UNIT/0.5 ML VIAL SC SCH ×3 (05:46→22:20)
[2017-02-07 06:27] LABS: BASOPHILS % 0.4 % (0.0-2.0); EOSINOPHILS # 0.2 10^3/ul (0.0-0.5); HEMATOCRIT 30.5 % (37.0-47.0); HEMOGLOBIN 8.9 g/dl (12.0-16.0); LYMPHOCYTES # 1.6 10^3/ul (0.8-2.9); LYMPHOCYTES % 15.8 % (15.0-51.0); MEAN CORPUSCULAR HEMOGLOBIN 22.5 pg (29.0-33.0); MEAN CORPUSCULAR HGB CONC 29.2 g/dl (32.0-37.0); MEAN CORPUSCULAR VOLUME 77.2 fl (82.0-101.0); MONOCYTE # 0.7 10^3/ul (0.3-0.9); MONOCYTES % 6.5 % (0.0-11.0); NUCLEATED RED BLOOD CELLS% 0.2 /100WBC (0.0-0.0); PLATELET COUNT 479 10^3/UL (140-415); RED BLOOD COUNT 3.95 10^6/ul (4.20-5.40); RED CELL DISTRIBUTION WIDTH 17.1 % (11.5-14.5); WHITE BLOOD COUNT 10.1 10^3/ul (4.8-10.8)
[2017-02-07 06:48] LABS: CALCIUM 9.1 mg/dl (8.4-10.2); CREATININE 1.51 mg/dl (0.44-1.00); POTASSIUM 5.8 mmol/L (3.5-5.1)
[2017-02-07 06:50] LABS: MAGNESIUM 2.6 mg/dl (1.7-2.5); PHOSPHORUS 4.9 mg/dl (2.5-4.9)
[2017-02-07] MEDS: INSULIN ASPART [NOVOLOG] 3 ML PEN SC SCH ×4 (07:55→21:00)
[2017-02-07] MEDS: FUROSEMIDE 20 MG TAB PO SCH (09:00)
[2017-02-07] MEDS: DOCUSATE SODIUM 100 MG CAP PO SCH ×2 (09:49→21:00)
[2017-02-07] MEDS: COLCHICINE 0.6 MG TAB PO SCH (09:50)
[2017-02-07] MEDS: FERROUS GLUCONATE (EC) 325 MG TAB PO SCH ×3 (09:50→22:15)
[2017-02-07] MEDS: SENNA TAB PO SCH ×2 (09:50→21:00)
[2017-02-07] MEDS: GABAPENTIN 100 MG CAP PO SCH ×2 (09:50→22:14)
[2017-02-07] MEDS: CALCIUM CARBONATE 500 MG CHEW TAB PO SCH ×3 (09:50→17:51)
[2017-02-07] MEDS: NYSTATIN 30 GM POWDER BTL TOP SCH ×2 (09:52→21:00)
--- NOTE | 2017-02-07 11:00 | CONS ---
Date/Time of Note Date/Time of Note DATE: 02/07/17 TIME: 10:58 Consult Date/Type/Reason Admit Date/Time Jan 30, 2017 at 02:47 Initial Consult Date 02/01/17 Type of Consultation: Pulm Ordering Provider: SOLITARIO LAMBERT [employer] Subjective Comfortable. Objective Vital Signs Date Time Temp Pulse Resp B/P Pulse Ox O2 Delivery O2 Flow Rate FiO2 02/07/17 08:22 76 02/07/17 08:15 Nasal Cannula 3.0 02/07/17 08:00 97.4 18 106/74 96 Intake and Output 02/06/17 02/06/17 02/07/17 15:00 23:00 07:00 Intake Total 500 ml Balance 500 ml Exam NECK: Supple. No JVD, no lymphadenopathy. CARDIAC: S1, S2. No added sounds or murmurs. CHEST: Diminished air entry bilaterally. ABDOMEN: Obese, nontender. No guarding or rebound. EXTREMITIES: No cyanosis, + edema Results/Medications Result Diagram: 02/07/17 0540 02/07/17 0540 Results 24 hrs Laboratory Tests Test 02/06/17 11:51 02/06/17 17:14 02/06/17 22:15 02/07/17 05:40 Bedside Glucose 163 130 133 White Blood Count 10.1 Red Blood Count 3.95 L Hemoglobin 8.9 L Hematocrit 30.5 L Mean Corpuscular Volume 77.2 L Mean Corpuscular Hemoglobin 22.5 L Mean Corpuscular Hemoglobin Concent 29.2 L Red Cell Distribution Width 17.1 H Platelet Count 479 H Mean Platelet Volume 9.0 Neutrophils % 74.0 Lymphocytes % 15.8 Monocytes % 6.5 Eosinophils % 2.0 Basophils % 0.4 Nucleated Red Blood Cells % 0.2 H Neutrophils # (Manual) 7.5 Lymphocytes # 1.6 Monocytes # 0.7 Eosinophils # 0.2 Basophils # 0.0 Nucleated Red Blood Cells # 0.0 Sodium Level 135 Potassium Level 5.8 H Chloride Level 97 Carbon Dioxide Level 29 Anion Gap 15 Blood Urea Nitrogen 51 H Creatinine 1.51 H Glucose Level 112 Calcium Level 9.1 Phosphorus Level 4.9 Magnesium Level 2.6 H Test 02/07/17 07:59 Bedside Glucose 116 Medications Current Medications Lorazepam (Ativan) 0.5 mg Q8H PRN PO ANXIETY; Start 01/30/17 at 05:00 Ondansetron HCl (Zofran Inj) 4 mg Q6H PRN IV NAUSEA AND/OR VOMITING Last administered on 02/04/17 11:54; Admin Dose 4 MG; Start 01/30/17 at 05:00 Acetaminophen (Tylenol Tab) 650 mg Q6H PRN PO PAIN LEVEL 1-3 OR FEVER Last administered on 01/30/17 12:04; Admin Dose 650 MG; Start 01/30/17 at 05:00 Diagnostic Test (Pha) (Accu-Chek) 1 ea 02 XX Last administered on 02/05/17 02: 00; Admin Dose 1 EA; Start 01/31/17 at 02:00 Alprazolam (Xanax) 1 mg QHS PRN PO ANXIETY; Start 01/30/17 at 05:00 Benazepril HCl (Lotensin) 40 mg DAILY PO Last administered on 01/31/17 08:08; Admin Dose 40 MG; Start 01/30/17 at 09:00; Status Future Hold Docusate Sodium (Colace) 100 mg BID PO Last administered on 02/07/17 09:49; Admin Dose 100 MG; Start 01/30/17 at 09:00 Gabapentin (Neurontin) 100 mg BID PO Last administered on 02/07/17 09:50; Admin Dose 100 MG; Start 01/30/17 at 09:00 Acetaminophen/ Hydrocodone Bitart ([place] (10/325)) 1 tab Q6H PRN PO PAIN Last administered on 02/04/17 02:49; Admin Dose 1 TAB; Start 01/30/17 at 05:00 Miscellaneous Information 1 ea NOTE XX ; Start 01/30/17 at 05:00 Glucose (Glutose) 15 gm Q15M PRN PO DECREASED GLUCOSE; Start 01/30/17 at 05:00 Glucose (Glutose) 22.5 gm Q15M PRN PO DECREASED GLUCOSE; Start 01/30/17 at 05: 00 Dextrose (D50w Syringe) 25 ml Q15M PRN IV DECREASED GLUCOSE; Start 01/30/17 at 05:00 Dextrose (D50w Syringe) 50 ml Q15M PRN IV DECREASED GLUCOSE; Start 01/30/17 at 05:00 Glucagon (Glucagen) 1 mg Q15M PRN IM DECREASED GLUCOSE; Start 01/30/17 at 05:00 Glucose (Glutose) 15 gm Q15M PRN BUCCAL DECREASED GLUCOSE; Start 01/30/17 at 05 :00 Nitroglycerin (Nitroglycerin (Sl Tab) 0.4 Mg) 1 tab [id number] PRN SL CHEST PAIN ; Start 01/30/17 at 05:30 Heparin Sodium (Porcine) (Heparin (5000 Units/0.5 ml)) 5,000 unit Q8 SC Last administered on 02/07/17 05:46; Admin Dose 5,000 UNIT; Start 02/01/17 at 18:00 Metoprolol Tartrate (Lopressor) 12.5 mg BID PRN PO BP>130 systolic; Start 02/02 at 12:00 Colchicine (Colchicine) 0.6 mg DAILY PO Last administered on 02/07/17 09:50; Admin Dose 0.6 MG; Start 02/03/17 at 09:00 Miscellaneous Information [facility] This patient deleon... PRN PRN XX WOUND CARE; Start 02/02/17 at 17:30 Nystatin (Nystatin Powder) 1 applic BID TOP Last administered on 02/07/17 09: 52; Admin Dose 1 APPLIC; Start 02/02/17 at 21:00 Hydromorphone HCl (Dilaudid) 1 mg Q6H PRN IV PAIN Last administered on 22:26; Admin Dose 1 MG; Start 02/04/17 at 14:30 Senna (Senokot) 2 tab BID PO Last administered on 02/07/17 09:50; Admin Dose 2 TAB; Start 02/05/17 at 13:00 Furosemide 10 mg 10 mg DAILY PO Last administered on 02/05/17 15:22; Admin Dose 10 MG; Start 02/05/17 at 14:30 Ferric Sodium Gluconate Complex/ Sodium Chloride (Ferrlecit/NS) 110 ml @ 100 mls/hr Q24H IVPB Last administered on 02/05/17 15:21; Admin Dose 100 MLS/HR; Start 02/05/17 at 16:00; Stop 02/07/17 at 17:05 Ferrous Gluconate (Fergon) 325 mg TID PO Last administered on 02/07/17 09:50; Admin Dose 325 MG; Start 02/06/17 at 13:00 Assessment/Plan Chief Complaint/Hosp Course IMP: 1. Mild Hypoxemia--in patient with [facility] 2. History of pulmonary embolism. U 3. History of psychiatric disorder. 4. [facility] 5. Pericardial effusion. RECS: 1. Titrate FiO2 2. f/u repeat TTE apparently today. 3. Monitor renal function. 4. Nocturnal BiPAP Problems: TALIA ACEVEDO [facility], [facility] Feb 07, 2017 11:00
[2017-02-07] MEDS ORDERED: NA POLYST SULFON 15 GM/60 ML BTL PO ONE (12:00)
[2017-02-07] MEDS: HYDROmorphONE 1 MG/ML SYG IV PRN ×2 (13:37→22:40)
--- NOTE | 2017-02-07 15:12 | CONS ---
Date/Time of Note Date/Time of Note DATE: 02/07/17 TIME: 15:05 Assessment/Plan Assessment/Plan Additional Assessment/Plan Pericardial effusion Preserved ejection fraction Morbid obesity Obstructive sleep apnea -Shortness of breath is improving. Renal function is worsening, agree with holding LAURY inhibitor. Awaiting repeat echocardiogram today. Consultation Date/Type/Reason Admit Date/Time Jan 30, 2017 at 02:47 Initial Consult Date 02/01/17 Type of Consultation: cv Referring Provider: SOLITARIO LAMBERT MANAGER DEPARTMENT 24 HR Interval Summary Free Text/Dictation Patient seen and examined. Shortness of breath has improved. Denies dizziness or lightheadedness. Exam/Review of Systems Vital Signs Vitals Vital Signs Date Time Temp Pulse Resp B/P Pulse Ox O2 Delivery O2 Flow Rate FiO2 02/07/17 12:28 92 02/07/17 11:15 98.1 16 125/76 96 02/07/17 08:15 Nasal Cannula 3.0 Intake and Output 02/06/17 02/06/17 02/07/17 14:59 22:59 06:59 Intake Total 500 ml Balance 500 ml Exam No apparent distress, sitting in chair Constitutional: alert, obese, oriented Head: normocephalic Respiratory: other (Coarse breath sounds bilaterally, no wheezing) Cardiovascular: other (S1-S2 heard), regular rate and rhythm Gastrointestinal: bowel sounds, non-tender, soft Extremities: edema Results Result Diagram: 02/07/17 0540 02/07/17 0540 Results 24 hrs Laboratory Tests Test 02/06/17 17:14 02/06/17 22:15 02/07/17 05:40 02/07/17 07:59 Bedside Glucose 130 133 116 White Blood Count 10.1 Red Blood Count 3.95 L Hemoglobin 8.9 L Hematocrit 30.5 L Mean Corpuscular Volume 77.2 L Mean Corpuscular Hemoglobin 22.5 L Mean Corpuscular Hemoglobin Concent 29.2 L Red Cell Distribution Width 17.1 H Platelet Count 479 H Mean Platelet Volume 9.0 Neutrophils % 74.0 Lymphocytes % 15.8 Monocytes % 6.5 Eosinophils % 2.0 Basophils % 0.4 Nucleated Red Blood Cells % 0.2 H Neutrophils # (Manual) 7.5 Lymphocytes # 1.6 Monocytes # 0.7 Eosinophils # 0.2 Basophils # 0.0 Nucleated Red Blood Cells # 0.0 Sodium Level 135 Potassium Level 5.8 H Chloride Level 97 Carbon Dioxide Level 29 Anion Gap 15 Blood Urea Nitrogen 51 H Creatinine 1.51 H Glucose Level 112 Calcium Level 9.1 Phosphorus Level 4.9 Magnesium Level 2.6 H Test 02/07/17 12:30 Bedside Glucose 114 Medications Medications Current Medications Lorazepam (Ativan) 0.5 mg Q8H PRN PO ANXIETY; Start 01/30/17 at 05:00 Ondansetron HCl (Zofran Inj) 4 mg Q6H PRN IV NAUSEA AND/OR VOMITING Last administered on 02/04/17 11:54; Admin Dose 4 MG; Start 01/30/17 at 05:00 Acetaminophen (Tylenol Tab) 650 mg Q6H PRN PO PAIN LEVEL 1-3 OR FEVER Last administered on 01/30/17 12:04; Admin Dose 650 MG; Start 01/30/17 at 05:00 Diagnostic Test (Pha) (Accu-Chek) 1 ea 02 XX Last administered on 02/05/17 02: 00; Admin Dose 1 EA; Start 01/31/17 at 02:00 Alprazolam (Xanax) 1 mg QHS PRN PO ANXIETY; Start 01/30/17 at 05:00 Benazepril HCl (Lotensin) 40 mg DAILY PO Last administered on 01/31/17 08:08; Admin Dose 40 MG; Start 01/30/17 at 09:00; Status Future Hold Docusate Sodium (Colace) 100 mg BID PO Last administered on 02/07/17 09:49; Admin Dose 100 MG; Start 01/30/17 at 09:00 Gabapentin (Neurontin) 100 mg BID PO Last administered on 02/07/17 09:50; Admin Dose 100 MG; Start 01/30/17 at 09:00 Acetaminophen/ Hydrocodone Bitart ([place] (10/325)) 1 tab Q6H PRN PO PAIN Last administered on 02/04/17 02:49; Admin Dose 1 TAB; Start 01/30/17 at 05:00 Miscellaneous Information 1 ea NOTE XX ; Start 01/30/17 at 05:00 Glucose (Glutose) 15 gm Q15M PRN PO DECREASED GLUCOSE; Start 01/30/17 at 05:00 Glucose (Glutose) 22.5 gm Q15M PRN PO DECREASED GLUCOSE; Start 01/30/17 at 05: 00 Dextrose (D50w Syringe) 25 ml Q15M PRN IV DECREASED GLUCOSE; Start 01/30/17 at 05:00 Dextrose (D50w Syringe) 50 ml Q15M PRN IV DECREASED GLUCOSE; Start 01/30/17 at 05:00 Glucagon (Glucagen) 1 mg Q15M PRN IM DECREASED GLUCOSE; Start 01/30/17 at 05:00 Glucose (Glutose) 15 gm Q15M PRN BUCCAL DECREASED GLUCOSE; Start 01/30/17 at 05 :00 Nitroglycerin (Nitroglycerin (Sl Tab) 0.4 Mg) 1 tab [id number] PRN SL CHEST PAIN ; Start 01/30/17 at 05:30 Heparin Sodium (Porcine) (Heparin (5000 Units/0.5 ml)) 5,000 unit Q8 SC Last administered on 02/07/17 05:46; Admin Dose 5,000 UNIT; Start 02/01/17 at 18:00 Metoprolol Tartrate (Lopressor) 12.5 mg BID PRN PO BP>130 systolic; Start 02/02 at 12:00 Colchicine (Colchicine) 0.6 mg DAILY PO Last administered on 02/07/17 09:50; Admin Dose 0.6 MG; Start 02/03/17 at 09:00 Miscellaneous Information (Pending [facility] Order For Wound Care) This patient deleon... PRN PRN XX WOUND CARE; Start 02/02/17 at 17:30 Nystatin (Nystatin Powder) 1 applic BID TOP Last administered on 02/07/17 09: 52; Admin Dose 1 APPLIC; Start 02/02/17 at 21:00 Hydromorphone HCl (Dilaudid) 1 mg Q6H PRN IV PAIN Last administered on 13:37; Admin Dose 1 MG; Start 02/04/17 at 14:30 Senna (Senokot) 2 tab BID PO Last administered on 02/07/17 09:50; Admin Dose 2 TAB; Start 02/05/17 at 13:00 Furosemide 10 mg 10 mg DAILY PO Last administered on 02/05/17 15:22; Admin Dose 10 MG; Start 02/05/17 at 14:30 Ferric Sodium Gluconate Complex/ Sodium Chloride (Ferrlecit/NS) 110 ml @ 100 mls/hr Q24H IVPB Last administered on 02/05/17 15:21; Admin Dose 100 MLS/HR; Start 02/05/17 at 16:00; Stop 02/07/17 at 17:05 Ferrous Gluconate (Fergon) 325 mg TID PO Last administered on 02/07/17 12:32; Admin Dose 325 MG; Start 02/06/17 at 13:00 Sean Gallego DO Feb 07, 2017 15:12
--- NOTE | 2017-02-07 15:31 | CONS ---
Date/Time of Note Date/Time of Note DATE: 02/07/17 TIME: 15:31 Assessment/Plan Assessment/Plan Additional Assessment/Plan 46 yo Female with 1. Chest pain. 2. Moderate pericardial effusion without tamponade physiology, Conservative management 3. Hypoxia 4. Essential hypertension 5. Depression. 6. Type 2 diabetes mellitus 7. Acute kidney injury 8. Microcytic, hypochromic anemia 9. Morbid Obesity 10. Hyperkalemia Renal function continues to improve Non oliguric S/p Kayexalate Check BMP in am Low K Diet Cont to monitor Electrolytes, UO, Renal function daily. Consultation Date/Type/Reason Admit Date/Time Jan 30, 2017 at 02:47 Initial Consult Date 02/01/17 Type of Consultation: Renal Referring Provider: SOLITARIO LAMBERT TOP CASE ASSEMBLER 24 HR Interval Summary Free Text/Dictation Feels anxious, Pending Urine collection, S/p BM with Kayexalate. Exam/Review of Systems Vital Signs Vitals Vital Signs Date Time Temp Pulse Resp B/P Pulse Ox O2 Delivery O2 Flow Rate FiO2 02/07/17 12:28 92 02/07/17 11:15 98.1 16 125/76 96 02/07/17 08:15 Nasal Cannula 3.0 Intake and Output 02/06/17 02/06/17 02/07/17 15:00 23:00 07:00 Intake Total 500 ml Balance 500 ml Exam Constitutional: alert, No distress ENMT: mucosa pink and moist Neck: No jvd Respiratory: No labored breathing Cardiovascular: regular rate and rhythm Gastrointestinal: other (obese) Neurological: No confused, No lethargic Skin: No diaphoresis Results Result Diagram: 02/07/17 0540 02/07/17 0540 Results 24 hrs Laboratory Tests Test 02/06/17 17:14 02/06/17 22:15 02/07/17 05:40 02/07/17 07:59 Bedside Glucose 130 133 116 White Blood Count 10.1 Red Blood Count 3.95 L Hemoglobin 8.9 L Hematocrit 30.5 L Mean Corpuscular Volume 77.2 L Mean Corpuscular Hemoglobin 22.5 L Mean Corpuscular Hemoglobin Concent 29.2 L Red Cell Distribution Width 17.1 H Platelet Count 479 H Mean Platelet Volume 9.0 Neutrophils % 74.0 Lymphocytes % 15.8 Monocytes % 6.5 Eosinophils % 2.0 Basophils % 0.4 Nucleated Red Blood Cells % 0.2 H Neutrophils # (Manual) 7.5 Lymphocytes # 1.6 Monocytes # 0.7 Eosinophils # 0.2 Basophils # 0.0 Nucleated Red Blood Cells # 0.0 Sodium Level 135 Potassium Level 5.8 H Chloride Level 97 Carbon Dioxide Level 29 Anion Gap 15 Blood Urea Nitrogen 51 H Creatinine 1.51 H Glucose Level 112 Calcium Level 9.1 Phosphorus Level 4.9 Magnesium Level 2.6 H Test 02/07/17 12:30 Bedside Glucose 114 Medications Medications Current Medications Lorazepam (Ativan) 0.5 mg Q8H PRN PO ANXIETY; Start 01/30/17 at 05:00 Ondansetron HCl (Zofran Inj) 4 mg Q6H PRN IV NAUSEA AND/OR VOMITING Last administered on 02/04/17 11:54; Admin Dose 4 MG; Start 01/30/17 at 05:00 Acetaminophen (Tylenol Tab) 650 mg Q6H PRN PO PAIN LEVEL 1-3 OR FEVER Last administered on 01/30/17 12:04; Admin Dose 650 MG; Start 01/30/17 at 05:00 Diagnostic Test (Pha) (Accu-Chek) 1 ea 02 XX Last administered on 02/05/17 02: 00; Admin Dose 1 EA; Start 01/31/17 at 02:00 Alprazolam (Xanax) 1 mg QHS PRN PO ANXIETY; Start 01/30/17 at 05:00 Benazepril HCl (Lotensin) 40 mg DAILY PO Last administered on 01/31/17 08:08; Admin Dose 40 MG; Start 01/30/17 at 09:00; Status Future Hold Docusate Sodium (Colace) 100 mg BID PO Last administered on 02/07/17 09:49; Admin Dose 100 MG; Start 01/30/17 at 09:00 Gabapentin (Neurontin) 100 mg BID PO Last administered on 02/07/17 09:50; Admin Dose 100 MG; Start 01/30/17 at 09:00 Acetaminophen/ Hydrocodone Bitart ([place] (10/325)) 1 tab Q6H PRN PO PAIN Last administered on 02/04/17 02:49; Admin Dose 1 TAB; Start 01/30/17 at 05:00 Miscellaneous Information 1 ea NOTE XX ; Start 01/30/17 at 05:00 Glucose (Glutose) 15 gm Q15M PRN PO DECREASED GLUCOSE; Start 01/30/17 at 05:00 Glucose (Glutose) 22.5 gm Q15M PRN PO DECREASED GLUCOSE; Start 01/30/17 at 05: 00 Dextrose (D50w Syringe) 25 ml Q15M PRN IV DECREASED GLUCOSE; Start 01/30/17 at 05:00 Dextrose (D50w Syringe) 50 ml Q15M PRN IV DECREASED GLUCOSE; Start 01/30/17 at 05:00 Glucagon (Glucagen) 1 mg Q15M PRN IM DECREASED GLUCOSE; Start 01/30/17 at 05:00 Glucose (Glutose) 15 gm Q15M PRN BUCCAL DECREASED GLUCOSE; Start 01/30/17 at 05 :00 Nitroglycerin (Nitroglycerin (Sl Tab) 0.4 Mg) 1 tab [id number] PRN SL CHEST PAIN ; Start 01/30/17 at 05:30 Heparin Sodium (Porcine) (Heparin (5000 Units/0.5 ml)) 5,000 unit Q8 SC Last administered on 02/07/17 05:46; Admin Dose 5,000 UNIT; Start 02/01/17 at 18:00 Metoprolol Tartrate (Lopressor) 12.5 mg BID PRN PO BP>130 systolic; Start 02/02 at 12:00 Colchicine (Colchicine) 0.6 mg DAILY PO Last administered on 02/07/17 09:50; Admin Dose 0.6 MG; Start 02/03/17 at 09:00 Miscellaneous Information (Pending [facility] Order For Wound Care) This patient deleon... PRN PRN XX WOUND CARE; Start 02/02/17 at 17:30 Nystatin (Nystatin Powder) 1 applic BID TOP Last administered on 02/07/17 09: 52; Admin Dose 1 APPLIC; Start 02/02/17 at 21:00 Hydromorphone HCl (Dilaudid) 1 mg Q6H PRN IV PAIN Last administered on 13:37; Admin Dose 1 MG; Start 02/04/17 at 14:30 Senna (Senokot) 2 tab BID PO Last administered on 02/07/17 09:50; Admin Dose 2 TAB; Start 02/05/17 at 13:00 Furosemide 10 mg 10 mg DAILY PO Last administered on 02/05/17 15:22; Admin Dose 10 MG; Start 02/05/17 at 14:30 Ferric Sodium Gluconate Complex/ Sodium Chloride (Ferrlecit/NS) 110 ml @ 100 mls/hr Q24H IVPB Last administered on 02/05/17 15:21; Admin Dose 100 MLS/HR; Start 02/05/17 at 16:00; Stop 02/07/17 at 17:05 Ferrous Gluconate (Fergon) 325 mg TID PO Last administered on 02/07/17 12:32; Admin Dose 325 MG; Start 02/06/17 at 13:00 ALBERT MARION MD Feb 07, 2017 15:31
--- NOTE | 2017-02-07 15:55 | PN ---
Date/Time of Note Date/Time of Note DATE: 02/07/17 TIME: 15:47 Assessment/Plan VTE Prophylaxis VTE Prophylaxis Intervention: heparin Lines/Catheters IV [facility] Saline Lock Urinary Cath still in place: No Assessment/Plan Chief Complaint/Hosp Course Assessment and plan 1. Chest pain. So troponins negative. Echocardiogram did show previous moderate-sized pericardial effusion. Suspect etiology for chest pain. Cardiology following. Continue diuresis. Further intervention per warehouse assistant. 2. Moderate pericardial effusion. Patient was evaluated by cardio thoracic surgeon. Nonsurgical management at this time. Repeat echo pending 3. Acute respiratory failure likely secondary to #2. Continue diuresis. Of note patient does have history of pulmonary embolism was not a candidate for CT angiogram due to weight. CT scan was also ordered but patient could not tolerate procedure due to orthopnea. Bilateral lower extremity Doppler was negative for DVT. Continue with solar installer recommendations. 4. Essential hypertension. On antihypertensives. To be adjusted as needed. 5. History of depression. Continue antidepressants 6. Type 2 diabetes. On insulin regimen. Metformin on hold due to [place] I 7. Acute kidney injury. Medications to be renally dosed. appears to be slowly improving. ict analyst following 8. Morbid obesity. Morbid obesity. Weight reduction was advised. Disposition and plan: Continue on O2. Still with some shortness of breath. Follow-up on echocardiogram. Follow-up with warehouse assistant recommendations. Continue in-house monitoring for now. Discussed plan of care with Dr. Hernandez Problems: Subjective 24 Hr Interval Summary Free Text/Dictation Still reports of some shortness of breath. Notable on exertion. Reports having some chest discomfort at times reports it is pressure-like Exam/Review of Systems Vital Signs Vitals Vital Signs Date Time Temp Pulse Resp B/P Pulse Ox O2 Delivery O2 Flow Rate FiO2 02/07/17 15:41 98.1 85 18 128/81 95 02/07/17 08:15 Nasal Cannula 3.0 Intake and Output 02/06/17 02/06/17 02/07/17 15:00 23:00 07:00 Intake Total 500 ml Balance 500 ml Exam Constitutional: alert, obese, oriented Psych: nl mood/affect Head: normocephalic Neck: No jvd Respiratory: clear to auscultation, normal air movement Cardiovascular: other (diminished heart sounds) Gastrointestinal: non-tender, soft Musculoskeletal: nl extremities to inspection Neurological: RAILROAD DESIGN CONSULTANT II-XII intact, nl mental status, nl speech Results Result Diagram: 02/07/17 0540 02/07/17 0540 Results 24 hrs Laboratory Tests Test 02/06/17 17:14 02/06/17 22:15 02/07/17 05:40 02/07/17 07:59 Bedside Glucose 130 133 116 White Blood Count 10.1 Red Blood Count 3.95 L Hemoglobin 8.9 L Hematocrit 30.5 L Mean Corpuscular Volume 77.2 L Mean Corpuscular Hemoglobin 22.5 L Mean Corpuscular Hemoglobin Concent 29.2 L Red Cell Distribution Width 17.1 H Platelet Count 479 H Mean Platelet Volume 9.0 Neutrophils % 74.0 Lymphocytes % 15.8 Monocytes % 6.5 Eosinophils % 2.0 Basophils % 0.4 Nucleated Red Blood Cells % 0.2 H Neutrophils # (Manual) 7.5 Lymphocytes # 1.6 Monocytes # 0.7 Eosinophils # 0.2 Basophils # 0.0 Nucleated Red Blood Cells # 0.0 Sodium Level 135 Potassium Level 5.8 H Chloride Level 97 Carbon Dioxide Level 29 Anion Gap 15 Blood Urea Nitrogen 51 H Creatinine 1.51 H Glucose Level 112 Calcium Level 9.1 Phosphorus Level 4.9 Magnesium Level 2.6 H Test 02/07/17 12:30 Bedside Glucose 114 Medications Medications Current Medications Lorazepam (Ativan) 0.5 mg Q8H PRN PO ANXIETY; Start 01/30/17 at 05:00 Ondansetron HCl (Zofran Inj) 4 mg Q6H PRN IV NAUSEA AND/OR VOMITING Last administered on 02/04/17 11:54; Admin Dose 4 MG; Start 01/30/17 at 05:00 Acetaminophen (Tylenol Tab) 650 mg Q6H PRN PO PAIN LEVEL 1-3 OR FEVER Last administered on 01/30/17 12:04; Admin Dose 650 MG; Start 01/30/17 at 05:00 Diagnostic Test (Pha) (Accu-Chek) 1 ea 02 XX Last administered on 02/05/17 02: 00; Admin Dose 1 EA; Start 01/31/17 at 02:00 Alprazolam (Xanax) 1 mg QHS PRN PO ANXIETY; Start 01/30/17 at 05:00 Benazepril HCl (Lotensin) 40 mg DAILY PO Last administered on 01/31/17 08:08; Admin Dose 40 MG; Start 01/30/17 at 09:00; Status Future Hold Docusate Sodium (Colace) 100 mg BID PO Last administered on 02/07/17 09:49; Admin Dose 100 MG; Start 01/30/17 at 09:00 Gabapentin (Neurontin) 100 mg BID PO Last administered on 02/07/17 09:50; Admin Dose 100 MG; Start 01/30/17 at 09:00 Acetaminophen/ Hydrocodone Bitart ([place] (10325)) 1 tab Q6H PRN PO PAIN Last administered on 02/04/17 02:49; Admin Dose 1 TAB; Start 01/30/17 at 05:00 Miscellaneous Information 1 ea NOTE XX ; Start 01/30/17 at 05:00 Glucose (Glutose) 15 gm Q15M PRN PO DECREASED GLUCOSE; Start 01/30/17 at 05:00 Glucose (Glutose) 22.5 gm Q15M PRN PO DECREASED GLUCOSE; Start 01/30/17 at 05: 00 Dextrose (D50w Syringe) 25 ml Q15M PRN IV DECREASED GLUCOSE; Start 01/30/17 at 05:00 Dextrose (D50w Syringe) 50 ml Q15M PRN IV DECREASED GLUCOSE; Start 01/30/17 at 05:00 Glucagon (Glucagen) 1 mg Q15M PRN IM DECREASED GLUCOSE; Start 01/30/17 at 05:00 Glucose (Glutose) 15 gm Q15M PRN BUCCAL DECREASED GLUCOSE; Start 01/30/17 at 05 :00 Nitroglycerin (Nitroglycerin (Sl Tab) 0.4 Mg) 1 tab [id number] PRN SL CHEST PAIN ; Start 01/30/17 at 05:30 Heparin Sodium (Porcine) (Heparin (5000 Units/0.5 ml)) 5,000 unit Q8 SC Last administered on 02/07/17 15:29; Admin Dose 5,000 UNIT; Start 02/01/17 at 18:00 Metoprolol Tartrate (Lopressor) 12.5 mg BID PRN PO BP>130 systolic; Start 02/02 at 12:00 Colchicine (Colchicine) 0.6 mg DAILY PO Last administered on 02/07/17 09:50; Admin Dose 0.6 MG; Start 02/03/17 at 09:00 Miscellaneous Information (Pending Santyl Order For Wound Care) This patient deleon... PRN PRN XX WOUND CARE; Start 02/02/17 at 17:30 Nystatin (Nystatin Powder) 1 applic BID TOP Last administered on 02/07/17 09: 52; Admin Dose 1 APPLIC; Start 02/02/17 at 21:00 Hydromorphone HCl (Dilaudid) 1 mg Q6H PRN IV PAIN Last administered on 13:37; Admin Dose 1 MG; Start 02/04/17 at 14:30 Senna (Senokot) 2 tab BID PO Last administered on 02/07/17 09:50; Admin Dose 2 TAB; Start 02/05/17 at 13:00 Furosemide 10 mg 10 mg DAILY PO Last administered on 02/05/17 15:22; Admin Dose 10 MG; Start 02/05/17 at 14:30 Ferric Sodium Gluconate Complex/ Sodium Chloride (Ferrlecit/NS) 110 ml @ 100 mls/hr Q24H IVPB Last administered on 02/05/17 15:21; Admin Dose 100 MLS/HR; Start 02/05/17 at 16:00; Stop 02/07/17 at 17:05 Ferrous Gluconate (Fergon) 325 mg TID PO Last administered on 02/07/17 12:32; Admin Dose 325 MG; Start 02/06/17 at 13:00 YAQUELIN RITTER Feb 07, 2017 15:55
[2017-02-07] MEDS: SOD FERRIC GLUC COMPLX 125 MG in SOD CHLORIDE 0.9% 100 ML IVPB SCH (16:12)
--- NOTE | 2017-02-07 16:16 | RADRPT ---
Echocardiogram Report Patient Name: ALISE ARROYO Gender: Female Date: 1970 Study Date: 07-Feb-2017 Marker Shipments: BRYAN Location: [id number] Ref. Physician: FAUSTINO ACEVEDO Quality: Good Procedures: Transthoracic echocardiogram with complete 2D, M-Mode imaging. Indications: Pericardial Effusion. Findings Left Ventricle: Normal left ventricular systolic function. Ejection fraction is visually estimated at 60 %. Right Ventricle: Normal right ventricular size. Normal right ventricular systolic function. Left Atrium: The left atrium is normal in size. Right Atrium: The right atrium is normal in size. Mitral Valve: Mitral valve is not well visualized. Aortic Valve: Aortic valve not well visualized. Tricuspid Valve: Tricuspid valve not well visualized. Pericardium: Moderate to large pericardial effusion, more so around the left ventricle and apex. Aorta: Not well visualized. IVC: The IVC is not well visualized. Conclusions 1.Normal left ventricular systolic function. Ejection fraction is visually estimated at 60 %. 2.Normal right ventricular size. Normal right ventricular systolic function. 3.Moderate to large pericardial effusion, more so around the left ventricle and apex. Electronically Signed By: Sean Gallego 07-Feb-2017 16:15:54 -0700 Patient Name: ALISE ARROYO Study Date: 07-Feb-2017 [id number]
[2017-02-08] VITALS (11 sets, daily range): BP systolic 107–132; BP diastolic 69–82; PULSE 76–110; RESP 16–20
[2017-02-08] MEDS: ACCU-CHEK XX SCH (02:00)
[2017-02-08] MEDS: HEPARIN 5,000 UNIT/0.5 ML VIAL SC SCH ×3 (06:26→22:36)
[2017-02-08] MEDS: INSULIN ASPART [NOVOLOG] 3 ML PEN SC SCH ×4 (07:51→20:41)
[2017-02-08 08:18] LABS: CALCIUM 8.8 mg/dl (8.4-10.2); CREATININE 1.17 mg/dl (0.44-1.00); POTASSIUM 4.4 mmol/L (3.5-5.1)
[2017-02-08] MEDS: DOCUSATE SODIUM 100 MG CAP PO SCH ×2 (08:27→20:41)
[2017-02-08] MEDS: COLCHICINE 0.6 MG TAB PO SCH (08:28)
[2017-02-08] MEDS: SENNA TAB PO SCH ×2 (08:28→20:41)
[2017-02-08] MEDS: FUROSEMIDE 20 MG TAB PO SCH (08:29)
[2017-02-08] MEDS: NYSTATIN 30 GM POWDER BTL TOP SCH ×2 (08:30→20:40)
[2017-02-08] MEDS: GABAPENTIN 100 MG CAP PO SCH ×2 (08:34→20:40)
[2017-02-08] MEDS: CALCIUM CARBONATE 500 MG CHEW TAB PO SCH ×3 (08:34→18:31)
[2017-02-08] MEDS: FERROUS GLUCONATE (EC) 325 MG TAB PO SCH ×3 (08:34→20:40)
[2017-02-08] MEDS: HYDROmorphONE 1 MG/ML SYG IV PRN ×3 (08:35→22:29)
--- NOTE | 2017-02-08 10:57 | CONS ---
Date/Time of Note Date/Time of Note DATE: 02/08/17 TIME: 10:55 Consult Date/Type/Reason Admit Date/Time Jan 30, 2017 at 02:47 Initial Consult Date 02/01/17 Type of Consultation: Pulm Ordering Provider: SOLITARIO LAMBERT FULL SERVICE VENDING DRIVER Subjective Feels little better, still has exertional dyspnea. Objective Vital Signs Date Time Temp Pulse Resp B/P Pulse Ox O2 Delivery O2 Flow Rate FiO2 02/08/17 09:06 90 02/08/17 08:43 Nasal Cannula 2.0 02/08/17 07:30 98.5 18 119/73 97 Intake and Output 02/07/17 02/07/17 02/08/17 15:00 23:00 07:00 Intake Total 1190 ml 400 ml Balance 1190 ml 400 ml Exam NECK: Supple. No JVD, no lymphadenopathy. CARDIAC: S1, S2. No added sounds or murmurs. CHEST: Diminished air entry bilaterally. ABDOMEN: Obese, nontender. No guarding or rebound. EXTREMITIES: No cyanosis, + edema Results/Medications Result Diagram: 02/07/17 0540 02/08/17 0639 Results 24 hrs Laboratory Tests Test 02/07/17 12:30 02/07/17 17:50 02/07/17 21:53 02/08/17 02:03 Bedside Glucose 114 109 97 152 Test 02/08/17 06:39 02/08/17 07:20 Sodium Level 143 Potassium Level 4.4 Chloride Level 99 Carbon Dioxide Level 32 H Anion Gap 16 Blood Urea Nitrogen 32 #H Creatinine 1.17 H Glucose Level 102 Calcium Level 8.8 Bedside Glucose 113 Medications Current Medications Lorazepam (Ativan) 0.5 mg Q8H PRN PO ANXIETY; Start 01/30/17 at 05:00 Ondansetron HCl (Zofran Inj) 4 mg Q6H PRN IV NAUSEA AND/OR VOMITING Last administered on 02/04/17 11:54; Admin Dose 4 MG; Start 01/30/17 at 05:00 Acetaminophen (Tylenol Tab) 650 mg Q6H PRN PO PAIN LEVEL 1-3 OR FEVER Last administered on 01/30/17 12:04; Admin Dose 650 MG; Start 01/30/17 at 05:00 Diagnostic Test (Pha) (Accu-Chek) 1 ea 02 XX Last administered on 02/05/17 02: 00; Admin Dose 1 EA; Start 01/31/17 at 02:00 Alprazolam (Xanax) 1 mg QHS PRN PO ANXIETY; Start 01/30/17 at 05:00 Benazepril HCl (Lotensin) 40 mg DAILY PO Last administered on 01/31/17 08:08; Admin Dose 40 MG; Start 01/30/17 at 09:00; Status Future Hold Docusate Sodium (Colace) 100 mg BID PO Last administered on 02/07/17 09:49; Admin Dose 100 MG; Start 01/30/17 at 09:00 Gabapentin (Neurontin) 100 mg BID PO Last administered on 02/08/17 08:34; Admin Dose 100 MG; Start 01/30/17 at 09:00 Acetaminophen/ Hydrocodone Bitart ([place] (10/325)) 1 tab Q6H PRN PO PAIN Last administered on 02/04/17 02:49; Admin Dose 1 TAB; Start 01/30/17 at 05:00 Miscellaneous Information 1 ea NOTE XX ; Start 01/30/17 at 05:00 Glucose (Glutose) 15 gm Q15M PRN PO DECREASED GLUCOSE; Start 01/30/17 at 05:00 Glucose (Glutose) 22.5 gm Q15M PRN PO DECREASED GLUCOSE; Start 01/30/17 at 05: 00 Dextrose (D50w Syringe) 25 ml Q15M PRN IV DECREASED GLUCOSE; Start 01/30/17 at 05:00 Dextrose (D50w Syringe) 50 ml Q15M PRN IV DECREASED GLUCOSE; Start 01/30/17 at 05:00 Glucagon (Glucagen) 1 mg Q15M PRN IM DECREASED GLUCOSE; Start 01/30/17 at 05:00 Glucose (Glutose) 15 gm Q15M PRN BUCCAL DECREASED GLUCOSE; Start 01/30/17 at 05 :00 Nitroglycerin (Nitroglycerin (Sl Tab) 0.4 Mg) 1 tab [id number] PRN SL CHEST PAIN ; Start 01/30/17 at 05:30 Heparin Sodium (Porcine) (Heparin (5000 Units/0.5 ml)) 5,000 unit Q8 SC Last administered on 02/08/17 06:26; Admin Dose 5,000 UNIT; Start 02/01/17 at 18:00 Metoprolol Tartrate (Lopressor) 12.5 mg BID PRN PO BP>130 systolic; Start 02/02 at 12:00 Colchicine (Colchicine) 0.6 mg DAILY PO Last administered on 02/08/17 08:28; Admin Dose 0.6 MG; Start 02/03/17 at 09:00 Miscellaneous Information (Pending Santyl Order For Wound Care) This patient deleon... PRN PRN XX WOUND CARE; Start 02/02/17 at 17:30 Nystatin (Nystatin Powder) 1 applic BID TOP Last administered on 02/08/17 08: 30; Admin Dose 1 APPLIC; Start 02/02/17 at 21:00 Hydromorphone HCl (Dilaudid) 1 mg Q6H PRN IV PAIN Last administered on 08:35; Admin Dose 1 MG; Start 02/04/17 at 14:30 Senna (Senokot) 2 tab BID PO Last administered on 02/07/17 09:50; Admin Dose 2 TAB; Start 02/05/17 at 13:00 Furosemide (Lasix) 10 mg DAILY PO Last administered on 02/08/17 08:29; Admin Dose 10 MG; Start 02/05/17 at 14:30 Ferrous Gluconate (Fergon) 325 mg TID PO Last administered on 02/08/17 08:34; Admin Dose 325 MG; Start 02/06/17 at 13:00 Assessment/Plan Chief Complaint/Hosp Course IMP: 1. Mild Hypoxemia--in patient with SHIRLEY/OHS 2. History of pulmonary embolism. U 3. History of psychiatric disorder. 4. SHIRLEY/OHS 5. Pericardial effusion. Etiology unclear, still present on repeat echo. No evidence of tamponade, preserved EF. RECS: 1. Titrate FiO2 2. Cardiac recs. Cardiothoracic surgery eval from drain placement ? 3. Monitor renal function. 4. Nocturnal BiPAP if tolerated. Problems: TALIA ACEVEDO MD, [facility] Feb 08, 2017 10:57
[2017-02-08 13:20] LABS: COLLECTION PERIOD 24 hrs
[2017-02-08 13:22] LABS: COLLECTION PERIOD 24 hrs; SCRET 1.17 mg/dl (0.44-1.00)
--- NOTE | 2017-02-08 13:44 | CONS ---
Date/Time of Note Date/Time of Note DATE: 02/08/17 TIME: 13:38 Assessment/Plan Assessment/Plan Additional Assessment/Plan Pericardial effusion Preserved ejection fraction Morbid obesity Obstructive sleep apnea -Repeat echocardiogram yesterday with medium to large pericardial effusion with no significant improvement compared to previous echocardiogram. Furthermore, etiology of patient's effusion is unclear. Ideally, patient would need diagnostic as well as therapeutic removal of pericardial fluid. Unfortunately, given patient's severe obesity as well as patient cannot even lie at 45 angle, subxiphoid pericardiocentesis would be unable to be performed safely. I did discuss with our surgery colleagues Dr. Ashby yesterday, who will evaluate the patient and echocardiogram as well as discuss with anesthesia. Renal function has improved, agree with holding LAURY inhibitor at the current time. Consultation Date/Type/Reason Admit Date/Time Jan 30, 2017 at 02:47 Initial Consult Date 02/01/17 Type of Consultation: cv Referring Provider: SOLITARIO LAMBERT NP 24 HR Interval Summary Free Text/Dictation Patient shortness of breath is still the same. Denies any chest pressure, dizziness. Denies any abdominal pain. Patient tells me her weight has been the same over the past year. She has had to sleep sitting up over a number of years because of shortness of breath. Exam/Review of Systems Vital Signs Vitals Vital Signs Date Time Temp Pulse Resp B/P Pulse Ox O2 Delivery O2 Flow Rate FiO2 02/08/17 12:17 76 02/08/17 11:12 97.8 16 114/69 96 02/08/17 08:43 Nasal Cannula 2.0 Intake and Output 02/07/17 02/07/17 02/08/17 15:00 23:00 07:00 Intake Total 1190 ml 400 ml Balance 1190 ml 400 ml Exam Sitting in chair Constitutional: alert, obese, oriented Head: normocephalic Respiratory: other (Coarse breath sounds bilaterally, no wheezing rhonchi) Cardiovascular: other (S1-S2 heard, no murmurs appreciated), regular rate and rhythm Gastrointestinal: bowel sounds, non-tender, other (Severe abdominal obesity), soft Extremities: edema Results Result Diagram: 02/07/17 0540 02/08/17 0639 Results 24 hrs Laboratory Tests Test 02/07/17 17:50 02/07/17 21:53 02/08/17 02:00 02/08/17 02:03 Bedside Glucose 109 97 152 Urine Random Creatinine 120.82 Urine Collection Duration 24 Urine Total Volume 24 Hours 500 Urine Creatinine Timed 24 Creatinine Clearance 35.9 L Urine Total Volume (Protein) 24 Urine Total Protein 24 Hour < 5.0 L Test 02/08/17 06:39 02/08/17 07:20 02/08/17 11:45 Sodium Level 143 Potassium Level 4.4 Chloride Level 99 Carbon Dioxide Level 32 H Anion Gap 16 Blood Urea Nitrogen 32 #H Creatinine 1.17 H Glucose Level 102 Calcium Level 8.8 Bedside Glucose 113 109 Medications Medications Current Medications Lorazepam (Ativan) 0.5 mg Q8H PRN PO ANXIETY; Start 01/30/17 at 05:00 Ondansetron HCl (Zofran Inj) 4 mg Q6H PRN IV NAUSEA AND/OR VOMITING Last administered on 02/04/17 11:54; Admin Dose 4 MG; Start 01/30/17 at 05:00 Acetaminophen (Tylenol Tab) 650 mg Q6H PRN PO PAIN LEVEL 1-3 OR FEVER Last administered on 01/30/17 12:04; Admin Dose 650 MG; Start 01/30/17 at 05:00 Diagnostic Test (Pha) (Accu-Chek) 1 ea 02 XX Last administered on 02/05/17 02: 00; Admin Dose 1 EA; Start 01/31/17 at 02:00 Alprazolam (Xanax) 1 mg QHS PRN PO ANXIETY; Start 01/30/17 at 05:00 Benazepril HCl (Lotensin) 40 mg DAILY PO Last administered on 01/31/17 08:08; Admin Dose 40 MG; Start 01/30/17 at 09:00; Status Future Hold Docusate Sodium (Colace) 100 mg BID PO Last administered on 02/07/17 09:49; Admin Dose 100 MG; Start 01/30/17 at 09:00 Gabapentin (Neurontin) 100 mg BID PO Last administered on 02/08/17 08:34; Admin Dose 100 MG; Start 01/30/17 at 09:00 Acetaminophen/ Hydrocodone Bitart ([place] (10/325)) 1 tab Q6H PRN PO PAIN Last administered on 02/04/17 02:49; Admin Dose 1 TAB; Start 01/30/17 at 05:00 Miscellaneous Information 1 ea NOTE XX ; Start 01/30/17 at 05:00 Glucose (Glutose) 15 gm Q15M PRN PO DECREASED GLUCOSE; Start 01/30/17 at 05:00 Glucose (Glutose) 22.5 gm Q15M PRN PO DECREASED GLUCOSE; Start 01/30/17 at 05: 00 Dextrose (D50w Syringe) 25 ml Q15M PRN IV DECREASED GLUCOSE; Start 01/30/17 at 05:00 Dextrose (D50w Syringe) 50 ml Q15M PRN IV DECREASED GLUCOSE; Start 01/30/17 at 05:00 Glucagon (Glucagen) 1 mg Q15M PRN IM DECREASED GLUCOSE; Start 01/30/17 at 05:00 Glucose (Glutose) 15 gm Q15M PRN BUCCAL DECREASED GLUCOSE; Start 01/30/17 at 05 :00 Nitroglycerin (Nitroglycerin (Sl Tab) 0.4 Mg) 1 tab [id number] PRN SL CHEST PAIN ; Start 01/30/17 at 05:30 Heparin Sodium (Porcine) (Heparin (5000 Units/0.5 ml)) 5,000 unit Q8 SC Last administered on 02/08/17 13:08; Admin Dose 5,000 UNIT; Start 02/01/17 at 18:00 Metoprolol Tartrate (Lopressor) 12.5 mg BID PRN PO BP>130 systolic; Start 02/02 at 12:00 Colchicine (Colchicine) 0.6 mg DAILY PO Last administered on 02/08/17 08:28; Admin Dose 0.6 MG; Start 02/03/17 at 09:00 Miscellaneous Information [facility] This patient deleon... PRN PRN XX WOUND CARE; Start 02/02/17 at 17:30 Nystatin (Nystatin Powder) 1 applic BID TOP Last administered on 02/08/17 08: 30; Admin Dose 1 APPLIC; Start 02/02/17 at 21:00 Hydromorphone HCl (Dilaudid) 1 mg Q6H PRN IV PAIN Last administered on 08:35; Admin Dose 1 MG; Start 02/04/17 at 14:30 Senna (Senokot) 2 tab BID PO Last administered on 02/07/17 09:50; Admin Dose 2 TAB; Start 02/05/17 at 13:00 Furosemide (Lasix) 10 mg DAILY PO Last administered on 02/08/17 08:29; Admin Dose 10 MG; Start 02/05/17 at 14:30 Ferrous Gluconate (Fergon) 325 mg TID PO Last administered on 02/08/17 13:04; Admin Dose 325 MG; Start 02/06/17 at 13:00 Sean Gallego DO Feb 08, 2017 13:44
--- NOTE | 2017-02-08 15:46 | PN ---
Date/Time of Note Date/Time of Note DATE: 02/08/17 TIME: 15:23 Assessment/Plan VTE Prophylaxis VTE Prophylaxis Intervention: heparin Lines/Catheters IV C[facility]ter Type (from [facility] Urinary Cath still in place: No Assessment/Plan Chief Complaint/Hosp Course Assessment and plan 1. Chest pain. troponins negative. Echocardiogram did show previous moderate -sized pericardial effusion. Suspect etiology for chest pain. Cardiology following. Continue diuresis. 2. Moderate pericardial effusion. Patient with worse pericardial effusion. Repeat echocardiogram. Patient to be re-evaluated per cardiothoracic surgeon. Will follow up 3. Acute respiratory failure likely secondary to #2. Continue diuresis. Of note patient does have history of pulmonary embolism was not a candidate for CT angiogram due to weight. CT scan was also ordered but patient could not tolerate procedure due to orthopnea. Bilateral lower extremity Doppler was negative for DVT. Continue with material specialist recommendation 4. Essential hypertension. On antihypertensives. To be adjusted as needed. 5. History of depression. Continue antidepressants 6. Type 2 diabetes. On insulin regimen. Metformin on hold due to [place] I 7. Acute kidney injury. Medications to be renally dosed. appears to be slowly improving. Coal Trammer following 8. Morbid obesity. Morbid obesity. Weight reduction was advised. Disposition and plan: Plan for evaluation per cardiothoracic surgeon. Noted with worsening pericardial effusion. Continue diuresis. Continue in-house monitoring for now. Discussed plan of care with Dr. Hernandez Problems: Subjective 24 Hr Interval Summary Free Text/Dictation Still reports shortness of breath more notable on exertion. Reports shortness of breath when trying to lying down. Exam/Review of Systems Vital Signs Vitals Vital Signs Date Time Temp Pulse Resp B/P Pulse Ox O2 Delivery O2 Flow Rate FiO2 02/08/17 12:17 76 02/08/17 11:12 97.8 16 114/69 96 02/08/17 08:43 Nasal Cannula 2.0 Intake and Output 02/07/17 02/07/17 02/08/17 15:00 23:00 07:00 Intake Total 1190 ml 400 ml Balance 1190 ml 400 ml Exam Constitutional: alert, obese (Morbidly) Psych: nl mood/affect Head: normocephalic Neck: supple, No jvd Respiratory: clear to auscultation, normal air movement Cardiovascular: other (Diminished heart sounds) Gastrointestinal: non-tender, soft Musculoskeletal: nl extremities to inspection, nl gait and stance Neurological: CONVEYOR BELT OPERATOR II-XII intact, nl mental status, nl speech Results Result Diagram: 02/07/17 0540 02/08/17 0639 Results 24 hrs Laboratory Tests Test 02/07/17 17:50 02/07/17 21:53 02/08/17 02:00 02/08/17 02:03 Bedside Glucose 109 97 152 Urine Random Creatinine 120.82 Urine Collection Duration 24 Urine Total Volume 24 Hours 500 Urine Creatinine Timed 24 Creatinine Clearance 35.9 L Urine Total Volume (Protein) 24 Urine Total Protein 24 Hour < 5.0 L Test 02/08/17 06:39 02/08/17 07:20 02/08/17 11:45 Sodium Level 143 Potassium Level 4.4 Chloride Level 99 Carbon Dioxide Level 32 H Anion Gap 16 Blood Urea Nitrogen 32 #H Creatinine 1.17 H Glucose Level 102 Calcium Level 8.8 Bedside Glucose 113 109 Medications Medications Current Medications Lorazepam (Ativan) 0.5 mg Q8H PRN PO ANXIETY; Start 01/30/17 at 05:00 Ondansetron HCl (Zofran Inj) 4 mg Q6H PRN IV NAUSEA AND/OR VOMITING Last administered on 02/04/17 11:54; Admin Dose 4 MG; Start 01/30/17 at 05:00 Acetaminophen (Tylenol Tab) 650 mg Q6H PRN PO PAIN LEVEL 1-3 OR FEVER Last administered on 01/30/17 12:04; Admin Dose 650 MG; Start 01/30/17 at 05:00 Diagnostic Test (Pha) (Accu-Chek) 1 ea 02 XX Last administered on 02/05/17 02: 00; Admin Dose 1 EA; Start 01/31/17 at 02:00 Alprazolam (Xanax) 1 mg QHS PRN PO ANXIETY; Start 01/30/17 at 05:00 Benazepril HCl (Lotensin) 40 mg DAILY PO Last administered on 01/31/17 08:08; Admin Dose 40 MG; Start 01/30/17 at 09:00; Status Future Hold Docusate Sodium (Colace) 100 mg BID PO Last administered on 02/07/17 09:49; Admin Dose 100 MG; Start 01/30/17 at 09:00 Gabapentin (Neurontin) 100 mg BID PO Last administered on 02/08/17 08:34; Admin Dose 100 MG; Start 01/30/17 at 09:00 Acetaminophen/ Hydrocodone Bitart ([place] (10/325)) 1 tab Q6H PRN PO PAIN Last administered on 02/04/17 02:49; Admin Dose 1 TAB; Start 01/30/17 at 05:00 Miscellaneous Information 1 ea NOTE XX ; Start 01/30/17 at 05:00 Glucose (Glutose) 15 gm Q15M PRN PO DECREASED GLUCOSE; Start 01/30/17 at 05:00 Glucose (Glutose) 22.5 gm Q15M PRN PO DECREASED GLUCOSE; Start 01/30/17 at 05: 00 Dextrose (D50w Syringe) 25 ml Q15M PRN IV DECREASED GLUCOSE; Start 01/30/17 at 05:00 Dextrose (D50w Syringe) 50 ml Q15M PRN IV DECREASED GLUCOSE; Start 01/30/17 at 05:00 Glucagon (Glucagen) 1 mg Q15M PRN IM DECREASED GLUCOSE; Start 01/30/17 at 05:00 Glucose (Glutose) 15 gm Q15M PRN BUCCAL DECREASED GLUCOSE; Start 01/30/17 at 05 :00 Nitroglycerin (Nitroglycerin (Sl Tab) 0.4 Mg) 1 tab [id number] PRN SL CHEST PAIN ; Start 01/30/17 at 05:30 Heparin Sodium (Porcine) (Heparin (5000 Units/0.5 ml)) 5,000 unit Q8 SC Last administered on 02/08/17 13:08; Admin Dose 5,000 UNIT; Start 02/01/17 at 18:00 Metoprolol Tartrate (Lopressor) 12.5 mg BID PRN PO BP>130 systolic; Start 02/02 at 12:00 Colchicine (Colchicine) 0.6 mg DAILY PO Last administered on 02/08/17 08:28; Admin Dose 0.6 MG; Start 02/03/17 at 09:00 [facility] This patient deleon... PRN PRN XX WOUND CARE; Start 02/02/17 at 17:30 Nystatin (Nystatin Powder) 1 applic BID TOP Last administered on 02/08/17 08: 30; Admin Dose 1 APPLIC; Start 02/02/17 at 21:00 Hydromorphone HCl (Dilaudid) 1 mg Q6H PRN IV PAIN Last administered on 15:15; Admin Dose 1 MG; Start 02/04/17 at 14:30 Senna (Senokot) 2 tab BID PO Last administered on 02/07/17 09:50; Admin Dose 2 TAB; Start 02/05/17 at 13:00 Furosemide (Lasix) 10 mg DAILY PO Last administered on 02/08/17 08:29; Admin Dose 10 MG; Start 02/05/17 at 14:30 Ferrous Gluconate (Fergon) 325 mg TID PO Last administered on 02/08/17 13:04; Admin Dose 325 MG; Start 02/06/17 at 13:00 YAQUELIN RITTER Feb 08, 2017 15:46
--- NOTE | 2017-02-08 19:24 | CONS ---
Date/Time of Note Date/Time of Note DATE: 02/08/17 TIME: 19:23 Assessment/Plan Assessment/Plan Additional Assessment/Plan 46 yo Female with 1. Chest pain. 2. Moderate pericardial effusion without tamponade physiology, Conservative management 3. Hypoxia 4. Essential hypertension 5. Depression. 6. Type 2 diabetes mellitus 7. Acute kidney injury 8. Microcytic, hypochromic anemia 9. Morbid Obesity 10. Hyperkalemia- Resolved Renal function continues to improve Non oliguric Check BMP in am Low K Diet Cont to monitor Electrolytes, UO, Renal function daily. Consultation Date/Type/Reason Admit Date/Time Jan 30, 2017 at 02:47 Initial Consult Date 02/01/17 Type of Consultation: Renal Referring Provider: SOLITARIO LAMBERT INSPECTOR H[employer]GINGS 24 HR Interval Summary Constitutional: requiring O2 Exam/Review of Systems Vital Signs Vitals Vital Signs Date Time Temp Pulse Resp B/P Pulse Ox O2 Delivery O2 Flow Rate FiO2 02/08/17 17:59 3.0 02/08/17 16:19 81 02/08/17 15:28 97.5 16 130/82 96 02/08/17 08:43 Nasal Cannula Intake and Output 02/07/17 02/07/17 02/08/17 15:00 23:00 07:00 Intake Total 1190 ml 400 ml Balance 1190 ml 400 ml Exam Constitutional: No distress ENMT: mucosa pink and moist Respiratory: No diminished breath sounds, No labored breathing Cardiovascular: edema Gastrointestinal: soft Neurological: No lethargic Results Result Diagram: 02/07/17 0540 02/08/17 0639 Results 24 hrs Laboratory Tests Test 02/07/17 21:53 02/08/17 02:00 02/08/17 02:03 02/08/17 06:39 Bedside Glucose 97 152 Urine Random Creatinine 120.82 Urine Collection Duration 24 Urine Total Volume 24 Hours 500 Urine Creatinine Timed 24 Creatinine Clearance 35.9 L Urine Total Volume (Protein) 24 Urine Total Protein 24 Hour < 5.0 L Sodium Level 143 Potassium Level 4.4 Chloride Level 99 Carbon Dioxide Level 32 H Anion Gap 16 Blood Urea Nitrogen 32 #H Creatinine 1.17 H Glucose Level 102 Calcium Level 8.8 Test 02/08/17 07:20 02/08/17 11:45 02/08/17 17:17 Bedside Glucose 113 109 103 Medications Medications Current Medications Lorazepam (Ativan) 0.5 mg Q8H PRN PO ANXIETY; Start 01/30/17 at 05:00 Ondansetron HCl (Zofran Inj) 4 mg Q6H PRN IV NAUSEA AND/OR VOMITING Last administered on 02/04/17 11:54; Admin Dose 4 MG; Start 01/30/17 at 05:00 Acetaminophen (Tylenol Tab) 650 mg Q6H PRN PO PAIN LEVEL 1-3 OR FEVER Last administered on 01/30/17 12:04; Admin Dose 650 MG; Start 01/30/17 at 05:00 Diagnostic Test (Pha) (Accu-Chek) 1 ea 02 XX Last administered on 02/05/17 02: 00; Admin Dose 1 EA; Start 01/31/17 at 02:00 Alprazolam (Xanax) 1 mg QHS PRN PO ANXIETY; Start 01/30/17 at 05:00 Benazepril HCl (Lotensin) 40 mg DAILY PO Last administered on 01/31/17 08:08; Admin Dose 40 MG; Start 01/30/17 at 09:00; Status Future Hold Docusate Sodium (Colace) 100 mg BID PO Last administered on 02/07/17 09:49; Admin Dose 100 MG; Start 01/30/17 at 09:00 Gabapentin (Neurontin) 100 mg BID PO Last administered on 02/08/17 08:34; Admin Dose 100 MG; Start 01/30/17 at 09:00 Acetaminophen/ Hydrocodone Bitart ([place] (10/325)) 1 tab Q6H PRN PO PAIN Last administered on 02/04/17 02:49; Admin Dose 1 TAB; Start 01/30/17 at 05:00 Miscellaneous Information 1 ea NOTE XX ; Start 01/30/17 at 05:00 Glucose (Glutose) 15 gm Q15M PRN PO DECREASED GLUCOSE; Start 01/30/17 at 05:00 Glucose (Glutose) 22.5 gm Q15M PRN PO DECREASED GLUCOSE; Start 01/30/17 at 05: 00 Dextrose (D50w Syringe) 25 ml Q15M PRN IV DECREASED GLUCOSE; Start 01/30/17 at 05:00 Dextrose (D50w Syringe) 50 ml Q15M PRN IV DECREASED GLUCOSE; Start 01/30/17 at 05:00 Glucagon (Glucagen) 1 mg Q15M PRN IM DECREASED GLUCOSE; Start 01/30/17 at 05:00 Glucose (Glutose) 15 gm Q15M PRN BUCCAL DECREASED GLUCOSE; Start 01/30/17 at 05 :00 Nitroglycerin (Nitroglycerin (Sl Tab) 0.4 Mg) 1 tab [id number] PRN SL CHEST PAIN ; Start 01/30/17 at 05:30 Heparin Sodium (Porcine) (Heparin (5000 Units/0.5 ml)) 5,000 unit Q8 SC Last administered on 02/08/17 13:08; Admin Dose 5,000 UNIT; Start 02/01/17 at 18:00 Metoprolol Tartrate (Lopressor) 12.5 mg BID PRN PO BP>130 systolic; Start 02/02 at 12:00 Colchicine (Colchicine) 0.6 mg DAILY PO Last administered on 02/08/17 08:28; Admin Dose 0.6 MG; Start 02/03/17 at 09:00 Miscellaneous Information (Pending [facility] Order For Wound Care) This patient deleon... PRN PRN XX WOUND CARE; Start 02/02/17 at 17:30 Nystatin (Nystatin Powder) 1 applic BID TOP Last administered on 02/08/17 08: 30; Admin Dose 1 APPLIC; Start 02/02/17 at 21:00 Hydromorphone HCl (Dilaudid) 1 mg Q6H PRN IV PAIN Last administered on 15:15; Admin Dose 1 MG; Start 02/04/17 at 14:30 Senna (Senokot) 2 tab BID PO Last administered on 02/07/17 09:50; Admin Dose 2 TAB; Start 02/05/17 at 13:00 Furosemide (Lasix) 10 mg DAILY PO Last administered on 02/08/17 08:29; Admin Dose 10 MG; Start 02/05/17 at 14:30 Ferrous Gluconate (Fergon) 325 mg TID PO Last administered on 02/08/17 13:04; Admin Dose 325 MG; Start 02/06/17 at 13:00 ALBERT MARION MD Feb 08, 2017 19:24
[2017-02-09] VITALS (13 sets, daily range): BP systolic 114–136; BP diastolic 67–77; PULSE 75–95; RESP 16–21
[2017-02-09] MEDS: ACCU-CHEK XX SCH (02:00)
[2017-02-09] MEDS: HEPARIN 5,000 UNIT/0.5 ML VIAL SC SCH ×3 (07:03→22:52)
[2017-02-09] MEDS: INSULIN ASPART [NOVOLOG] 3 ML PEN SC SCH ×4 (07:55→20:26)
[2017-02-09] MEDS: COLCHICINE 0.6 MG TAB PO SCH (08:58)
[2017-02-09] MEDS: CALCIUM CARBONATE 500 MG CHEW TAB PO SCH ×3 (08:58→17:57)
[2017-02-09] MEDS: DOCUSATE SODIUM 100 MG CAP PO SCH ×2 (08:59→20:25)
[2017-02-09] MEDS: FERROUS GLUCONATE (EC) 325 MG TAB PO SCH ×3 (08:59→20:24)
[2017-02-09] MEDS: GABAPENTIN 100 MG CAP PO SCH ×2 (08:59→20:24)
[2017-02-09] MEDS: SENNA TAB PO SCH ×2 (09:00→20:26)
[2017-02-09] MEDS: FUROSEMIDE 20 MG TAB PO SCH (09:00)
[2017-02-09] MEDS: NYSTATIN 30 GM POWDER BTL TOP SCH ×2 (09:00→20:24)
[2017-02-09] MEDS: HYDROmorphONE 1 MG/ML SYG IV PRN ×2 (09:01→18:58)
--- NOTE | 2017-02-09 12:16 | CONS ---
Date/Time of Note Date/Time of Note DATE: 02/09/17 TIME: 12:14 Assessment/Plan Assessment/Plan Additional Assessment/Plan Pericardial effusion Preserved ejection fraction Morbid obesity Obstructive sleep apnea -Awaiting anesthesia input regarding if the patient's anesthesia can be performed at our facility for pericardial window. Blood pressure trend remains stable, will continue to hold antihypertensive medications. Consultation Date/Type/Reason Admit Date/Time Jan 30, 2017 at 02:47 Initial Consult Date 02/01/17 Type of Consultation: cv Referring Provider: SOLITARIO LAMBERT FLATTENING PRESS OPERATOR 24 HR Interval Summary Free Text/Dictation Shortness of breath is the same, denies chest pain, palpitations or dizziness Exam/Review of Systems Vital Signs Vitals Vital Signs Date Time Temp Pulse Resp B/P Pulse Ox O2 Delivery O2 Flow Rate FiO2 02/09/17 11:34 97.5 81 16 123/70 96 02/08/17 20:44 3.0 02/08/17 20:40 Nasal Cannula Intake and Output 02/08/17 02/08/17 02/09/17 15:00 23:00 07:00 Intake Total 1080 ml 500 ml Balance 1080 ml 500 ml Exam No apparent distress Constitutional: alert, obese, oriented Head: normocephalic Respiratory: other (Coarse breath sounds bilaterally, no wheezing) Cardiovascular: other (S1-S2 heard), regular rate and rhythm Gastrointestinal: bowel sounds, non-tender, soft Extremities: edema Results Result Diagram: 02/07/17 0540 02/08/17 0639 Results 24 hrs Laboratory Tests Test 02/08/17 17:17 02/08/17 20:38 02/09/17 08:19 02/09/17 11:44 Bedside Glucose 103 146 108 112 Medications Medications Current Medications Lorazepam (Ativan) 0.5 mg Q8H PRN PO ANXIETY; Start 01/30/17 at 05:00 Ondansetron HCl (Zofran Inj) 4 mg Q6H PRN IV NAUSEA AND/OR VOMITING Last administered on 02/04/17 11:54; Admin Dose 4 MG; Start 01/30/17 at 05:00 Acetaminophen (Tylenol Tab) 650 mg Q6H PRN PO PAIN LEVEL 1-3 OR FEVER Last administered on 01/30/17 12:04; Admin Dose 650 MG; Start 01/30/17 at 05:00 Diagnostic Test (Pha) (Accu-Chek) 1 ea 02 XX Last administered on 02/05/17 02: 00; Admin Dose 1 EA; Start 01/31/17 at 02:00 Alprazolam (Xanax) 1 mg QHS PRN PO ANXIETY; Start 01/30/17 at 05:00 Benazepril HCl (Lotensin) 40 mg DAILY PO Last administered on 01/31/17 08:08; Admin Dose 40 MG; Start 01/30/17 at 09:00; Status Future Hold Docusate Sodium (Colace) 100 mg BID PO Last administered on 02/09/17 08:59; Admin Dose 100 MG; Start 01/30/17 at 09:00 Gabapentin (Neurontin) 100 mg BID PO Last administered on 02/09/17 08:59; Admin Dose 100 MG; Start 01/30/17 at 09:00 Acetaminophen/ Hydrocodone Bitart ([place] (10/325)) 1 tab Q6H PRN PO PAIN Last administered on 02/04/17 02:49; Admin Dose 1 TAB; Start 01/30/17 at 05:00 Miscellaneous Information 1 ea NOTE XX ; Start 01/30/17 at 05:00 Glucose (Glutose) 15 gm Q15M PRN PO DECREASED GLUCOSE; Start 01/30/17 at 05:00 Glucose (Glutose) 22.5 gm Q15M PRN PO DECREASED GLUCOSE; Start 01/30/17 at 05: 00 Dextrose (D50w Syringe) 25 ml Q15M PRN IV DECREASED GLUCOSE; Start 01/30/17 at 05:00 Dextrose (D50w Syringe) 50 ml Q15M PRN IV DECREASED GLUCOSE; Start 01/30/17 at 05:00 Glucagon (Glucagen) 1 mg Q15M PRN IM DECREASED GLUCOSE; Start 01/30/17 at 05:00 Glucose (Glutose) 15 gm Q15M PRN BUCCAL DECREASED GLUCOSE; Start 01/30/17 at 05 :00 Nitroglycerin (Nitroglycerin (Sl Tab) 0.4 Mg) 1 tab [id number] PRN SL CHEST PAIN ; Start 01/30/17 at 05:30 Heparin Sodium (Porcine) (Heparin (5000 Units/0.5 ml)) 5,000 unit Q8 SC Last administered on 02/09/17 07:03; Admin Dose 5,000 UNIT; Start 02/01/17 at 18:00 Metoprolol Tartrate (Lopressor) 12.5 mg BID PRN PO BP>130 systolic; Start 02/02 at 12:00 Colchicine (Colchicine) 0.6 mg DAILY PO Last administered on 02/09/17 08:58; Admin Dose 0.6 MG; Start 02/03/17 at 09:00 Miscellaneous Information (Pending [facility] Order For Wound Care) This patient deleon... PRN PRN XX WOUND CARE; Start 02/02/17 at 17:30 Nystatin (Nystatin Powder) 1 applic BID TOP Last administered on 02/09/17 09: 00; Admin Dose 1 APPLIC; Start 02/02/17 at 21:00 Hydromorphone HCl (Dilaudid) 1 mg Q6H PRN IV PAIN Last administered on 09:01; Admin Dose 1 MG; Start 02/04/17 at 14:30 Senna (Senokot) 2 tab BID PO Last administered on 02/07/17 09:50; Admin Dose 2 TAB; Start 02/05/17 at 13:00 Furosemide (Lasix) 10 mg DAILY PO Last administered on 02/09/17 09:00; Admin Dose 10 MG; Start 02/05/17 at 14:30 Ferrous Gluconate (Fergon) 325 mg TID PO Last administered on 02/09/17 08:59; Admin Dose 325 MG; Start 02/06/17 at 13:00 Sean Gallego DO Feb 09, 2017 12:16
--- NOTE | 2017-02-09 13:43 | CONS ---
Date/Time of Note Date/Time of Note DATE: 02/09/17 TIME: 13:39 Assessment/Plan Assessment/Plan Additional Assessment/Plan Assessment and recommendations; 1. Patient admitted for CHF exacerbation with very slow clinical improvement. 2. Morbid obesity. 3. Hypercapnic respiratory failure which is compensated. Likely from underlying sleep apnea/obesity hypoventilation syndrome. 4. History of diabetes, hypertension and gout. 5. Coughing and chest congestion from postnasal drip. Continue current treatment. Add Claritin 10 mg daily. Consider discharge. Consultation Date/Type/Reason Admit Date/Time Jan 30, 2017 at 02:47 Initial Consult Date 02/01/17 Type of Consultation: Pulmonary Referring Provider: SOLITARIO LAMBERT NP 24 HR Interval Summary Free Text/Dictation Patient condition stable. Still complains of dyspnea on minimal to moderate exertion. Complains of coughing and chest congestion. Complains of significant postnasal drip. Denies any wheezing. Any chest pain. General exam; young female, morbidly obese, currently in no distress. Awake and alert. Exam/Review of Systems Vital Signs Vitals Vital Signs Date Time Temp Pulse Resp B/P Pulse Ox O2 Delivery O2 Flow Rate FiO2 02/09/17 12:36 87 02/09/17 11:34 97.5 16 123/70 96 02/08/17 20:44 3.0 02/08/17 20:40 Nasal Cannula Intake and Output 02/08/17 02/08/17 02/09/17 15:00 23:00 07:00 Intake Total 1080 ml 500 ml Balance 1080 ml 500 ml Exam HEENT exam; supple neck, no JVD. No lymphadenopathy. Midline trachea. No thyromegaly. Pharynx is clear. Patient has fair dentition. Pupils are midsize and reactive to light. Chest examination; diminished but clear breath sounds. S1-S2 audible, no murmurs. Regular rhythm. Abdomen exam; protuberant. Nontender. Bowel sounds audible. Extremity exam; no peripheral edema. Pulses 1+ bilaterally. No clubbing. STEREOTYPER APPRENTICE exam; no focal deficit. Results Result Diagram: 02/07/17 0540 02/08/17 0639 Results 24 hrs Laboratory Tests Test 02/08/17 17:17 02/08/17 20:38 02/09/17 08:19 02/09/17 11:44 Bedside Glucose 103 146 108 112 Medications Medications Current Medications Lorazepam (Ativan) 0.5 mg Q8H PRN PO ANXIETY; Start 01/30/17 at 05:00 Ondansetron HCl (Zofran Inj) 4 mg Q6H PRN IV NAUSEA AND/OR VOMITING Last administered on 02/04/17 11:54; Admin Dose 4 MG; Start 01/30/17 at 05:00 Acetaminophen (Tylenol Tab) 650 mg Q6H PRN PO PAIN LEVEL 1-3 OR FEVER Last administered on 01/30/17 12:04; Admin Dose 650 MG; Start 01/30/17 at 05:00 Diagnostic Test (Pha) (Accu-Chek) 1 ea 02 XX Last administered on 02/05/17 02: 00; Admin Dose 1 EA; Start 01/31/17 at 02:00 Alprazolam (Xanax) 1 mg QHS PRN PO ANXIETY; Start 01/30/17 at 05:00 Benazepril HCl (Lotensin) 40 mg DAILY PO Last administered on 01/31/17 08:08; Admin Dose 40 MG; Start 01/30/17 at 09:00; Status Future Hold Docusate Sodium (Colace) 100 mg BID PO Last administered on 02/09/17 08:59; Admin Dose 100 MG; Start 01/30/17 at 09:00 Gabapentin (Neurontin) 100 mg BID PO Last administered on 02/09/17 08:59; Admin Dose 100 MG; Start 01/30/17 at 09:00 Acetaminophen/ Hydrocodone Bitart ([place] (10/325)) 1 tab Q6H PRN PO PAIN Last administered on 02/04/17 02:49; Admin Dose 1 TAB; Start 01/30/17 at 05:00 Miscellaneous Information 1 ea NOTE XX ; Start 01/30/17 at 05:00 Glucose (Glutose) 15 gm Q15M PRN PO DECREASED GLUCOSE; Start 01/30/17 at 05:00 Glucose (Glutose) 22.5 gm Q15M PRN PO DECREASED GLUCOSE; Start 01/30/17 at 05: 00 Dextrose (D50w Syringe) 25 ml Q15M PRN IV DECREASED GLUCOSE; Start 01/30/17 at 05:00 Dextrose (D50w Syringe) 50 ml Q15M PRN IV DECREASED GLUCOSE; Start 01/30/17 at 05:00 Glucagon (Glucagen) 1 mg Q15M PRN IM DECREASED GLUCOSE; Start 01/30/17 at 05:00 Glucose (Glutose) 15 gm Q15M PRN BUCCAL DECREASED GLUCOSE; Start 01/30/17 at 05 :00 Nitroglycerin (Nitroglycerin (Sl Tab) 0.4 Mg) 1 tab [id number] PRN SL CHEST PAIN ; Start 01/30/17 at 05:30 Heparin Sodium (Porcine) (Heparin (5000 Units/0.5 ml)) 5,000 unit Q8 SC Last administered on 02/09/17 07:03; Admin Dose 5,000 UNIT; Start 02/01/17 at 18:00 Metoprolol Tartrate (Lopressor) 12.5 mg BID PRN PO BP>130 systolic; Start 02/02 at 12:00 Colchicine (Colchicine) 0.6 mg DAILY PO Last administered on 02/09/17 08:58; Admin Dose 0.6 MG; Start 02/03/17 at 09:00 Miscellaneous Information (Pending [facility] Order For Wound Care) This patient deleon... PRN PRN XX WOUND CARE; Start 02/02/17 at 17:30 Nystatin (Nystatin Powder) 1 applic BID TOP Last administered on 02/09/17 09: 00; Admin Dose 1 APPLIC; Start 02/02/17 at 21:00 Hydromorphone HCl (Dilaudid) 1 mg Q6H PRN IV PAIN Last administered on 09:01; Admin Dose 1 MG; Start 02/04/17 at 14:30 Senna (Senokot) 2 tab BID PO Last administered on 02/07/17 09:50; Admin Dose 2 TAB; Start 02/05/17 at 13:00 Furosemide (Lasix) 10 mg DAILY PO Last administered on 02/09/17 09:00; Admin Dose 10 MG; Start 02/05/17 at 14:30 Ferrous Gluconate (Fergon) 325 mg TID PO Last administered on 02/09/17 08:59; Admin Dose 325 MG; Start 02/06/17 at 13:00 AWA MASSEY Feb 09, 2017 13:43
--- NOTE | 2017-02-09 13:47 | CONS ---
Date/Time of Note Date/Time of Note DATE: 02/09/17 TIME: 13:39 Assessment/Plan Assessment/Plan Additional Assessment/Plan 46 year old female who is morbidly obese who has a large pericardial effusion. If anesthesia clears her will proceed with window. I discussed risks and benefits with the paitent. She understands and consents. Consultation Date/Type/Reason Admit Date/Time Jan 30, 2017 at 02:47 Date of Consultation: Feb 09, 2017 Reason for Consultation evaluate for pericardial window Referring Provider: Sean Gallego DO Hx of Present Illness 46 year old morbidly obese female who was admitted for SOB and chest pressure. An echo last week showed a moderate to larger pericardial effusion and she was started on colchicine and NSAIDS. Repeat echo did not show improvement and now she has early RV collapse. We are asked to see her regarding pericardial window. Constitutional: requiring O2, No chills, No diaphoresis, No disoriented, No febrile, No improved, No no complaints, No other, No poor po, No requiring IVF Eyes: No discharge, No no complaints, No other, No pain, No redness, No visual change ENT: No bleeding, No congestion, No discharge, No dysphagia, No no complaints, No other, No pain, No sore throat Respiratory: shortness of breath Cardiovascular: chest pain Gastrointestinal: No blood, No constipation, No decreased appetite, No diarrhea , No flatus, No nausea, No no complaints, No other, No pain, No passing stool, No vomiting Genitourinary: No bleeding, No discharge, No dysuria, No flank pain, No hematuria, No no complaints, No other Musculoskeletal: No back pain, No bone/joint pain, No neck pain, No no complaints, No other, No restricted range of motion, No swelling Skin: No bruising, No erythema, No laceration, No no complaints, No other, No pruritis, No rash, No skin lesions Neurologic: No confusion, No dizziness, No focal-weakness, No headache, No no complaints, No other, No seizure, No syncope Endocrine: No dry skin, No no complaints, No other, No polydypsia, No polyuria , No temp intolerance Lymphatic: No adenopathy, No lymphadema, No no complaints, No other, No tender nodes Psychological: nl mood/affect, No anxiety, No confusion, No depression, No no complaints, No other, No suicidal Immunologic: No immunodeficiency, No no complaints, No other, No pruritis, No rhinitis, No urticaria Past Medical History Medical History: diabetes, hypertension, other (PE, depression, anxiety, morbid obesity) Past Surgical History Past Surgical Hx: cholecystectomy Family History Significant Family History: no pertinent family hx Social History Alcohol Use: none Smoking Status: Never smoker Drug Use: none Exam/Review of Systems Vital Signs Vitals Vital Signs Date Time Temp Pulse Resp B/P Pulse Ox O2 Delivery O2 Flow Rate FiO2 02/09/17 12:36 87 02/09/17 11:34 97.5 16 123/70 96 02/08/17 20:44 3.0 02/08/17 20:40 Nasal Cannula Intake and Output 02/08/17 02/08/17 02/09/17 15:00 23:00 07:00 Intake Total 1080 ml 500 ml Balance 1080 ml 500 ml Exam Constitutional: obese Psych: No anxiety, No confusion, No depression, No nl mood/affect, No no complaints, No other, No suicidal Head: No atraumatic, No hematomas, No lacerations, No normocephalic, No other Eyes: No EOMI, No PERRL, No fundi, disc, No icteric, No nl conjunctiva, No nl lids, No nl sclera, No other ENMT: No intubated, No mucosa pink and moist, No nl external ears & nose, No nl lips & teeth, No nl nasal mucosa & septum, No other, No tympanic membranes Neck: No bruits, No jvd, No masses, No non-tender, No nuchal rigidity, No other , No supple, No thyromegaly Respiratory: No clear to auscultation, No congested cough, No crackles/rales, No diminished breath sounds, No intercostal retraction, No labored breathing, No normal air movement, No other, No respirations, No tactile fremitus, No wheezing Cardiovascular: other, regular rate and rhythm Gastrointestinal: No ascites, No bowel sounds, No distended, No firm, No hepatomegaly, No mass, No nl liver, spleen, No non-tender, No other, No rebound or guarding, No soft, No splenomegaly, No surgical scars, No tender Genitourinary - Female: No CMT, No CVA tenderness, No nl adnexae, No nl external genitalia, No other, No uterus Musculoskeletal: No joint tenderness, No muscle tone, No muscle weakness, No nl extremities to inspection, No nl gait and stance, No other, No range of motion, No spine non-tender, No swelling Extremities: No calf tenderness, No clubbing, No cyanosis, No edema, No normal pulses, No other, No palpable cord, No pitting pedal edema, No tenderness Neurological: No RESCUE WORKER II-XII intact, No DTR's symmetric, No confused, No focal weakness, No lethargic, No nl mental status, No nl speech, No nl strength, No numbness, No other, No reflexes, No unresponsive Skin: No diaphoresis, No ecchymosis, No laceration, No nl turgor, No other, No puncture, No rash or lesions Lymph: No enlarged, No nl lymph nodes, No nontender, No other Results Result Diagram: 02/07/17 0540 02/08/17 0639 Results 24 hrs Laboratory Tests Test 02/08/17 17:17 02/08/17 20:38 02/09/17 08:19 02/09/17 11:44 Bedside Glucose 103 146 108 112 Medications Medications Current Medications Lorazepam (Ativan) 0.5 mg Q8H PRN PO ANXIETY; Start 01/30/17 at 05:00 Ondansetron HCl (Zofran Inj) 4 mg Q6H PRN IV NAUSEA AND/OR VOMITING Last administered on 02/04/17 11:54; Admin Dose 4 MG; Start 01/30/17 at 05:00 Acetaminophen (Tylenol Tab) 650 mg Q6H PRN PO PAIN LEVEL 1-3 OR FEVER Last administered on 01/30/17 12:04; Admin Dose 650 MG; Start 01/30/17 at 05:00 Diagnostic Test (Pha) (Accu-Chek) 1 ea 02 XX Last administered on 02/05/17 02: 00; Admin Dose 1 EA; Start 01/31/17 at 02:00 Alprazolam (Xanax) 1 mg QHS PRN PO ANXIETY; Start 01/30/17 at 05:00 Benazepril HCl (Lotensin) 40 mg DAILY PO Last administered on 01/31/17 08:08; Admin Dose 40 MG; Start 01/30/17 at 09:00; Status Future Hold Docusate Sodium (Colace) 100 mg BID PO Last administered on 02/09/17 08:59; Admin Dose 100 MG; Start 01/30/17 at 09:00 Gabapentin (Neurontin) 100 mg BID PO Last administered on 02/09/17 08:59; Admin Dose 100 MG; Start 01/30/17 at 09:00 Acetaminophen/ Hydrocodone Bitart ([place] (10/325)) 1 tab Q6H PRN PO PAIN Last administered on 02/04/17 02:49; Admin Dose 1 TAB; Start 01/30/17 at 05:00 Miscellaneous Information 1 ea NOTE XX ; Start 01/30/17 at 05:00 Glucose (Glutose) 15 gm Q15M PRN PO DECREASED GLUCOSE; Start 01/30/17 at 05:00 Glucose (Glutose) 22.5 gm Q15M PRN PO DECREASED GLUCOSE; Start 01/30/17 at 05: 00 Dextrose (D50w Syringe) 25 ml Q15M PRN IV DECREASED GLUCOSE; Start 01/30/17 at 05:00 Dextrose (D50w Syringe) 50 ml Q15M PRN IV DECREASED GLUCOSE; Start 01/30/17 at 05:00 Glucagon (Glucagen) 1 mg Q15M PRN IM DECREASED GLUCOSE; Start 01/30/17 at 05:00 Glucose (Glutose) 15 gm Q15M PRN BUCCAL DECREASED GLUCOSE; Start 01/30/17 at 05 :00 Nitroglycerin (Nitroglycerin (Sl Tab) 0.4 Mg) 1 tab [id number] PRN SL CHEST PAIN ; Start 01/30/17 at 05:30 Heparin Sodium (Porcine) (Heparin (5000 Units/0.5 ml)) 5,000 unit Q8 SC Last administered on 02/09/17 07:03; Admin Dose 5,000 UNIT; Start 02/01/17 at 18:00 Metoprolol Tartrate (Lopressor) 12.5 mg BID PRN PO BP>130 systolic; Start 02/02 at 12:00 Colchicine (Colchicine) 0.6 mg DAILY PO Last administered on 02/09/17 08:58; Admin Dose 0.6 MG; Start 02/03/17 at 09:00 Miscellaneous Information (Pending [facility] Order For Wound Care) This patient deleon... PRN PRN XX WOUND CARE; Start 02/02/17 at 17:30 Nystatin (Nystatin Powder) 1 applic BID TOP Last administered on 02/09/17 09: 00; Admin Dose 1 APPLIC; Start 02/02/17 at 21:00 Hydromorphone HCl (Dilaudid) 1 mg Q6H PRN IV PAIN Last administered on 09:01; Admin Dose 1 MG; Start 02/04/17 at 14:30 Senna (Senokot) 2 tab BID PO Last administered on 02/07/17 09:50; Admin Dose 2 TAB; Start 02/05/17 at 13:00 Furosemide (Lasix) 10 mg DAILY PO Last administered on 02/09/17 09:00; Admin Dose 10 MG; Start 02/05/17 at 14:30 Ferrous Gluconate (Fergon) 325 mg TID PO Last administered on 02/09/17 08:59; Admin Dose 325 MG; Start 02/06/17 at 13:00 ETIENNE ORTIZ MD Feb 09, 2017 13:47
[2017-02-09] MEDS: LORATADINE 10 MG TAB PO SCH (14:00)
--- NOTE | 2017-02-09 14:39 | PN ---
Date/Time of Note Date/Time of Note DATE: 02/09/17 TIME: 14:37 Assessment/Plan VTE Prophylaxis VTE Prophylaxis Intervention: heparin Lines/[facility]atheters [facility] Urinary Cath still in place: No Assessment/Plan Chief Complaint/Hosp Course Assessment and plan 1. Chest pain. troponins negative. Echocardiogram did show previous moderate -sized pericardial effusion. Suspect etiology for chest pain. Cardiology following. Continue diuresis. 2. Moderate pericardial effusion. Patient with worse pericardial effusion. plan for pericardial window if cleared by anesthesia 3. Acute respiratory failure likely secondary to #2. Continue diuresis. Of note patient does have history of pulmonary embolism was not a candidate for CT angiogram due to weight. CT scan was also ordered but patient could not tolerate procedure due to orthopnea. Bilateral lower extremity Doppler was negative for DVT. Continue with cad librarian recommendation 4. Essential hypertension. On antihypertensives. To be adjusted as needed. 5. History of depression. Continue antidepressants 6. Type 2 diabetes. On insulin regimen. Metformin on hold due to [place] I 7. Acute kidney injury. Medications to be renally dosed. appears to be slowly improving. Anglesmith Helper following 8. Morbid obesity. Morbid obesity. Weight reduction was advised. Disposition and plan: Plan for pericardial window if cleared by anesthesia Discussed plan of care with Dr. Hernandez Problems: Subjective 24 Hr Interval Summary Free Text/Dictation Still with some shortness of breath. More notable on exertion. Exam/Review of Systems Vital Signs Vitals Vital Signs Date Time Temp Pulse Resp B/P Pulse Ox O2 Delivery O2 Flow Rate FiO2 02/09/17 12:36 87 02/09/17 11:34 97.5 16 123/70 96 02/08/17 20:44 3.0 02/08/17 20:40 Nasal Cannula Intake and Output 02/08/17 02/08/17 02/09/17 15:00 23:00 07:00 Intake Total 1080 ml 500 ml Balance 1080 ml 500 ml Exam Constitutional: alert, obese (Morbidly) Psych: nl mood/affect Head: normocephalic Neck: supple, No jvd Respiratory: no wheezing/rhonchi Cardiovascular: other (Diminished heart sounds) Gastrointestinal: non-tender, soft Musculoskeletal: nl extremities to inspection, nl gait and stance Neurological: MERCHANDISE DIRECTOR II-XII intact, nl mental status, nl speech Results Result Diagram: 02/07/17 0540 02/08/17 0639 Results 24 hrs Laboratory Tests Test 02/08/17 17:17 02/08/17 20:38 02/09/17 08:19 02/09/17 11:44 Bedside Glucose 103 146 108 112 Medications Medications Current Medications Lorazepam (Ativan) 0.5 mg Q8H PRN PO ANXIETY; Start 01/30/17 at 05:00 Ondansetron HCl (Zofran Inj) 4 mg Q6H PRN IV NAUSEA AND/OR VOMITING Last administered on 02/04/17 11:54; Admin Dose 4 MG; Start 01/30/17 at 05:00 Acetaminophen (Tylenol Tab) 650 mg Q6H PRN PO PAIN LEVEL 1-3 OR FEVER Last administered on 01/30/17 12:04; Admin Dose 650 MG; Start 01/30/17 at 05:00 Diagnostic Test (Pha) (Accu-Chek) 1 ea 02 XX Last administered on 02/05/17 02: 00; Admin Dose 1 EA; Start 01/31/17 at 02:00 Alprazolam (Xanax) 1 mg QHS PRN PO ANXIETY; Start 01/30/17 at 05:00 Benazepril HCl (Lotensin) 40 mg DAILY PO Last administered on 01/31/17 08:08; Admin Dose 40 MG; Start 01/30/17 at 09:00; Status Future Hold Docusate Sodium (Colace) 100 mg BID PO Last administered on 02/09/17 08:59; Admin Dose 100 MG; Start 01/30/17 at 09:00 Gabapentin (Neurontin) 100 mg BID PO Last administered on 02/09/17 08:59; Admin Dose 100 MG; Start 01/30/17 at 09:00 Acetaminophen/ Hydrocodone Bitart ([place] (10/325)) 1 tab Q6H PRN PO PAIN Last administered on 02/04/17 02:49; Admin Dose 1 TAB; Start 01/30/17 at 05:00 Miscellaneous Information 1 ea NOTE XX ; Start 01/30/17 at 05:00 Glucose (Glutose) 15 gm Q15M PRN PO DECREASED GLUCOSE; Start 01/30/17 at 05:00 Glucose (Glutose) 22.5 gm Q15M PRN PO DECREASED GLUCOSE; Start 01/30/17 at 05: 00 Dextrose (D50w Syringe) 25 ml Q15M PRN IV DECREASED GLUCOSE; Start 01/30/17 at 05:00 Dextrose (D50w Syringe) 50 ml Q15M PRN IV DECREASED GLUCOSE; Start 01/30/17 at 05:00 Glucagon (Glucagen) 1 mg Q15M PRN IM DECREASED GLUCOSE; Start 01/30/17 at 05:00 Glucose (Glutose) 15 gm Q15M PRN BUCCAL DECREASED GLUCOSE; Start 01/30/17 at 05 :00 Nitroglycerin (Nitroglycerin (Sl Tab) 0.4 Mg) 1 tab [id number] PRN SL CHEST PAIN ; Start 01/30/17 at 05:30 Heparin Sodium (Porcine) (Heparin (5000 Units/0.5 ml)) 5,000 unit Q8 SC Last administered on 02/09/17 14:10; Admin Dose 5,000 UNIT; Start 02/01/17 at 18:00 Metoprolol Tartrate (Lopressor) 12.5 mg BID PRN PO BP>130 systolic; Start 02/02 at 12:00 Colchicine (Colchicine) 0.6 mg DAILY PO Last administered on 02/09/17 08:58; Admin Dose 0.6 MG; Start 02/03/17 at 09:00 [facility] This patient deleon... PRN PRN XX WOUND CARE; Start 02/02/17 at 17:30 Nystatin (Nystatin Powder) 1 applic BID TOP Last administered on 02/09/17 09: 00; Admin Dose 1 APPLIC; Start 02/02/17 at 21:00 Hydromorphone HCl (Dilaudid) 1 mg Q6H PRN IV PAIN Last administered on 09:01; Admin Dose 1 MG; Start 02/04/17 at 14:30 Senna (Senokot) 2 tab BID PO Last administered on 02/07/17 09:50; Admin Dose 2 TAB; Start 02/05/17 at 13:00 Furosemide (Lasix) 10 mg DAILY PO Last administered on 02/09/17 09:00; Admin Dose 10 MG; Start 02/05/17 at 14:30 Ferrous Gluconate (Fergon) 325 mg TID PO Last administered on 02/09/17 14:04; Admin Dose 325 MG; Start 02/06/17 at 13:00 Loratadine (Claritin) 10 mg DAILY PO ; Start 02/09/17 at 14:00 YAQUELIN RITTER Feb 09, 2017 14:39
[2017-02-10] VITALS (12 sets, daily range): BP systolic 120–141; BP diastolic 71–79; PULSE 73–82; RESP 16–20
[2017-02-10] MEDS: ACCU-CHEK XX SCH (02:00)
[2017-02-10] MEDS: HYDROmorphONE 1 MG/ML SYG IV PRN ×3 (04:01→19:27)
[2017-02-10] MEDS: HEPARIN 5,000 UNIT/0.5 ML VIAL SC SCH ×3 (06:22→21:01)
[2017-02-10] MEDS: INSULIN ASPART [NOVOLOG] 3 ML PEN SC SCH ×4 (07:55→21:00)
[2017-02-10] MEDS: GABAPENTIN 100 MG CAP PO SCH ×2 (08:37→21:01)
[2017-02-10] MEDS: DOCUSATE SODIUM 100 MG CAP PO SCH ×2 (08:37→21:01)
[2017-02-10] MEDS: CALCIUM CARBONATE 500 MG CHEW TAB PO SCH ×3 (08:37→17:47)
[2017-02-10] MEDS: LORATADINE 10 MG TAB PO SCH (08:38)
[2017-02-10] MEDS: FERROUS GLUCONATE (EC) 325 MG TAB PO SCH ×3 (08:38→21:01)
[2017-02-10] MEDS: FUROSEMIDE 20 MG TAB PO SCH (08:38)
[2017-02-10] MEDS: SENNA TAB PO SCH ×2 (08:38→21:01)
[2017-02-10] MEDS: NYSTATIN 30 GM POWDER BTL TOP SCH ×2 (08:39→21:01)
[2017-02-10] MEDS: COLCHICINE 0.6 MG TAB PO SCH (08:42)
[2017-02-10 08:43] LABS: CREATININE 0.93 mg/dl (0.44-1.00)
--- NOTE | 2017-02-10 10:43 | CONS ---
Date/Time of Note Date/Time of Note DATE: 02/10/17 TIME: 10:41 Assessment/Plan Assessment/Plan Additional Assessment/Plan Assessment and recommendations; 1. Patient admitted with shortness of breath due to CHF with pericardial effusion. 2. Hypercapnic respiratory failure due to underlying sleep apnea with high possibility of obesity/hypoventilation syndrome. 3. History of hypertension. 4. Return dyspnea on exertion likely from pericardial effusion. Continue current treatment. Patient is currently being evaluated for pericardial window placement. The patient is cleared from a pulmonary standpoint to undergo the procedure. Consultation Date/Type/Reason Admit Date/Time Jan 30, 2017 at 02:47 Initial Consult Date 02/01/17 Type of Consultation: Pulmonary Referring Provider: Sean Gallego DO 24 HR Interval Summary Free Text/Dictation Patient condition remains stable. Still complains of dyspnea on minimal exertion. Cough and chest congestion have improved. Patient still complains of postnasal drip. General exam; young woman, morbidly obese, currently in no distress. Awake and alert. Exam/Review of Systems Vital Signs Vitals Vital Signs Date Time Temp Pulse Resp B/P Pulse Ox O2 Delivery O2 Flow Rate FiO2 02/10/17 08:00 79 02/10/17 07:30 98.1 16 120/73 97 02/09/17 20:24 Nasal Cannula 2.0 Intake and Output 02/09/17 02/09/17 02/10/17 15:00 23:00 07:00 Intake Total 1220 ml 500 ml Balance 1220 ml 500 ml Exam HEENT exam; supple neck, JVD difficult to see because of short neck. Pharynx is clear. Patient has good dentition. No neck masses. No thyromegaly. Chest exam; diminished but clear breath sound. S1-S2 audible, no murmurs. Regular rhythm. Abdomen exam; soft, protuberant. Bowel sounds audible. Extremity exam; trace pitting edema involving lower extremities. Pulses 2+ bilaterally. PRODUCTION OR PLANT ENGINEER exam; no focal deficit. Results Result Diagram: 02/07/17 0540 02/10/17 0734 Results 24 hrs Laboratory Tests Test 02/09/17 11:44 02/09/17 17:45 02/09/17 20:22 02/10/17 07:34 Bedside Glucose 112 123 128 Blood Urea Nitrogen 20 Creatinine 0.93 Test 02/10/17 08:04 Bedside Glucose 105 Medications Medications Current Medications Lorazepam (Ativan) 0.5 mg Q8H PRN PO ANXIETY; Start 01/30/17 at 05:00 Ondansetron HCl (Zofran Inj) 4 mg Q6H PRN IV NAUSEA AND/OR VOMITING Last administered on 02/04/17 11:54; Admin Dose 4 MG; Start 01/30/17 at 05:00 Acetaminophen (Tylenol Tab) 650 mg Q6H PRN PO PAIN LEVEL 1-3 OR FEVER Last administered on 01/30/17 12:04; Admin Dose 650 MG; Start 01/30/17 at 05:00 Diagnostic Test (Pha) (Accu-Chek) 1 ea 02 XX Last administered on 02/05/17 02: 00; Admin Dose 1 EA; Start 01/31/17 at 02:00 Alprazolam (Xanax) 1 mg QHS PRN PO ANXIETY; Start 01/30/17 at 05:00 Benazepril HCl (Lotensin) 40 mg DAILY PO Last administered on 01/31/17 08:08; Admin Dose 40 MG; Start 01/30/17 at 09:00; Status Future Hold Docusate Sodium (Colace) 100 mg BID PO Last administered on 02/10/17 08:37; Admin Dose 100 MG; Start 01/30/17 at 09:00 Gabapentin (Neurontin) 100 mg BID PO Last administered on 02/10/17 08:37; Admin Dose 100 MG; Start 01/30/17 at 09:00 Acetaminophen/ Hydrocodone Bitart ([place] (10/325)) 1 tab Q6H PRN PO PAIN Last administered on 02/04/17 02:49; Admin Dose 1 TAB; Start 01/30/17 at 05:00 Miscellaneous Information 1 ea NOTE XX ; Start 01/30/17 at 05:00 Glucose (Glutose) 15 gm Q15M PRN PO DECREASED GLUCOSE; Start 01/30/17 at 05:00 Glucose (Glutose) 22.5 gm Q15M PRN PO DECREASED GLUCOSE; Start 01/30/17 at 05: 00 Dextrose (D50w Syringe) 25 ml Q15M PRN IV DECREASED GLUCOSE; Start 01/30/17 at 05:00 Dextrose (D50w Syringe) 50 ml Q15M PRN IV DECREASED GLUCOSE; Start 01/30/17 at 05:00 Glucagon (Glucagen) 1 mg Q15M PRN IM DECREASED GLUCOSE; Start 01/30/17 at 05:00 Glucose (Glutose) 15 gm Q15M PRN BUCCAL DECREASED GLUCOSE; Start 01/30/17 at 05 :00 Nitroglycerin (Nitroglycerin (Sl Tab) 0.4 Mg) 1 tab [id number] PRN SL CHEST PAIN ; Start 01/30/17 at 05:30 Heparin Sodium (Porcine) (Heparin (5000 Units/0.5 ml)) 5,000 unit Q8 SC Last administered on 02/10/17 06:22; Admin Dose 5,000 UNIT; Start 02/01/17 at 18:00 Metoprolol Tartrate (Lopressor) 12.5 mg BID PRN PO BP>130 systolic; Start 02/02 at 12:00 Colchicine (Colchicine) 0.6 mg DAILY PO Last administered on 02/10/17 08:42; Admin Dose 0.6 MG; Start 02/03/17 at 09:00 Misc[facility] This patient deleon... PRN PRN XX WOUND CARE; Start 02/02/17 at 17:30 Nystatin (Nystatin Powder) 1 applic BID TOP Last administered on 02/10/17 08: 39; Admin Dose 1 APPLIC; Start 02/02/17 at 21:00 Hydromorphone HCl (Dilaudid) 1 mg Q6H PRN IV PAIN Last administered on 04:01; Admin Dose 1 MG; Start 02/04/17 at 14:30 Senna (Senokot) 2 tab BID PO Last administered on 02/07/17 09:50; Admin Dose 2 TAB; Start 02/05/17 at 13:00 Furosemide (Lasix) 10 mg DAILY PO Last administered on 02/10/17 08:38; Admin Dose 10 MG; Start 02/05/17 at 14:30 Ferrous Gluconate (Fergon) 325 mg TID PO Last administered on 02/10/17 08:38; Admin Dose 325 MG; Start 02/06/17 at 13:00 Loratadine (Claritin) 10 mg DAILY PO ; Start 02/09/17 at 14:00 AWA MASSEY Feb 10, 2017 10:43
--- NOTE | 2017-02-10 13:26 | CONS ---
Date/Time of Note Date/Time of Note DATE: 02/10/17 TIME: 13:24 Assessment/Plan Assessment/Plan Additional Assessment/Plan Pericardial effusion Preserved ejection fraction Morbid obesity Obstructive sleep apnea -Patient planned for pericardial window tomorrow if cleared by our anesthesia colleagues. Continue telemetry monitoring. Consultation Date/Type/Reason Admit Date/Time Jan 30, 2017 at 02:47 Initial Consult Date 02/01/17 Type of Consultation: cv Referring Provider: Sean Gallego DO 24 HR Interval Summary Free Text/Dictation Shortness of breath the same. Seen by CT surgery, awaiting input from anesthesia for possible pericardial window plan for tomorrow Exam/Review of Systems Vital Signs Vitals Vital Signs Date Time Temp Pulse Resp B/P Pulse Ox O2 Delivery O2 Flow Rate FiO2 02/10/17 12:00 73 02/10/17 11:30 98.0 18 133/71 95 02/09/17 20:24 Nasal Cannula 2.0 Intake and Output 02/09/17 02/09/17 02/10/17 15:00 23:00 07:00 Intake Total 1220 ml 500 ml Balance 1220 ml 500 ml Exam No apparent distress Constitutional: alert, obese, oriented Head: normocephalic Respiratory: other (Coarse breath sounds bilaterally, no wheezing) Cardiovascular: other (S1-S2 heard), regular rate and rhythm Gastrointestinal: bowel sounds, non-tender, soft Extremities: edema Results Result Diagram: 02/07/17 0540 02/10/17 0734 Results 24 hrs Laboratory Tests Test 02/09/17 17:45 02/09/17 20:22 02/10/17 07:34 02/10/17 08:04 Bedside Glucose 123 128 105 Blood Urea Nitrogen 20 Creatinine 0.93 Test 02/10/17 11:54 Bedside Glucose 112 Medications Medications Current Medications Lorazepam (Ativan) 0.5 mg Q8H PRN PO ANXIETY; Start 01/30/17 at 05:00 Ondansetron HCl (Zofran Inj) 4 mg Q6H PRN IV NAUSEA AND/OR VOMITING Last administered on 02/04/17 11:54; Admin Dose 4 MG; Start 01/30/17 at 05:00 Acetaminophen (Tylenol Tab) 650 mg Q6H PRN PO PAIN LEVEL 1-3 OR FEVER Last administered on 01/30/17 12:04; Admin Dose 650 MG; Start 01/30/17 at 05:00 Diagnostic Test (Pha) (Accu-Chek) 1 ea 02 XX Last administered on 02/05/17 02: 00; Admin Dose 1 EA; Start 01/31/17 at 02:00 Alprazolam (Xanax) 1 mg QHS PRN PO ANXIETY; Start 01/30/17 at 05:00 Benazepril HCl (Lotensin) 40 mg DAILY PO Last administered on 01/31/17 08:08; Admin Dose 40 MG; Start 01/30/17 at 09:00; Status Future Hold Docusate Sodium (Colace) 100 mg BID PO Last administered on 02/10/17 08:37; Admin Dose 100 MG; Start 01/30/17 at 09:00 Gabapentin (Neurontin) 100 mg BID PO Last administered on 02/10/17 08:37; Admin Dose 100 MG; Start 01/30/17 at 09:00 Acetaminophen/ Hydrocodone Bitart ([place] (10/325)) 1 tab Q6H PRN PO PAIN Last administered on 02/04/17 02:49; Admin Dose 1 TAB; Start 01/30/17 at 05:00 Miscellaneous Information 1 ea NOTE XX ; Start 01/30/17 at 05:00 Glucose (Glutose) 15 gm Q15M PRN PO DECREASED GLUCOSE; Start 01/30/17 at 05:00 Glucose (Glutose) 22.5 gm Q15M PRN PO DECREASED GLUCOSE; Start 01/30/17 at 05: 00 Dextrose (D50w Syringe) 25 ml Q15M PRN IV DECREASED GLUCOSE; Start 01/30/17 at 05:00 Dextrose (D50w Syringe) 50 ml Q15M PRN IV DECREASED GLUCOSE; Start 01/30/17 at 05:00 Glucagon (Glucagen) 1 mg Q15M PRN IM DECREASED GLUCOSE; Start 01/30/17 at 05:00 Glucose (Glutose) 15 gm Q15M PRN BUCCAL DECREASED GLUCOSE; Start 01/30/17 at 05 :00 Nitroglycerin (Nitroglycerin (Sl Tab) 0.4 Mg) 1 tab [id number] PRN SL CHEST PAIN ; Start 01/30/17 at 05:30 Heparin Sodium (Porcine) (Heparin (5000 Units/0.5 ml)) 5,000 unit Q8 SC Last administered on 02/10/17 06:22; Admin Dose 5,000 UNIT; Start 02/01/17 at 18:00 Metoprolol Tartrate (Lopressor) 12.5 mg BID PRN PO BP>130 systolic; Start 02/02 at 12:00 Colchicine (Colchicine) 0.6 mg DAILY PO Last administered on 02/10/17 08:42; Admin Dose 0.6 MG; Start 02/03/17 at 09:00 Miscellaneous Information [facility] This patient deleon... PRN PRN XX WOUND CARE; Start 02/02/17 at 17:30 Nystatin (Nystatin Powder) 1 applic BID TOP Last administered on 02/10/17 08: 39; Admin Dose 1 APPLIC; Start 02/02/17 at 21:00 Hydromorphone HCl (Dilaudid) 1 mg Q6H PRN IV PAIN Last administered on 11:07; Admin Dose 1 MG; Start 02/04/17 at 14:30 Senna (Senokot) 2 tab BID PO Last administered on 02/07/17 09:50; Admin Dose 2 TAB; Start 02/05/17 at 13:00 Furosemide (Lasix) 10 mg DAILY PO Last administered on 02/10/17 08:38; Admin Dose 10 MG; Start 02/05/17 at 14:30 Ferrous Gluconate (Fergon) 325 mg TID PO Last administered on 02/10/17 08:38; Admin Dose 325 MG; Start 02/06/17 at 13:00 Loratadine (Claritin) 10 mg DAILY PO ; Start 02/09/17 at 14:00 Sean Gallego DO Feb 10, 2017 13:26
[2017-02-10] MEDS ORDERED: CEFAZOLIN 2 GM/50 ML (PMX) 50 ML IVPB ONE (15:00)
--- NOTE | 2017-02-10 15:11 | CONS ---
Date/Time of Note Date/Time of Note DATE: 02/10/17 TIME: 15:10 Assessment/Plan Assessment/Plan Additional Assessment/Plan 46 yo Female with 1. Chest pain. 2. Moderate pericardial effusion without tamponade physiology, Conservative management 3. Hypoxia 4. Essential hypertension 5. Depression. 6. Type 2 diabetes mellitus 7. Acute kidney injury 8. Microcytic, hypochromic anemia 9. Morbid Obesity 10. Hyperkalemia- Resolved Mane Resolved Will sign off case at this time Re consult as needed. Consultation Date/Type/Reason Admit Date/Time Jan 30, 2017 at 02:47 Initial Consult Date 02/01/17 Type of Consultation: Renal Exam/Review of Systems Vital Signs Vitals Vital Signs Date Time Temp Pulse Resp B/P Pulse Ox O2 Delivery O2 Flow Rate FiO2 02/10/17 12:00 73 02/10/17 11:30 98.0 18 133/71 95 02/09/17 20:24 Nasal Cannula 2.0 Intake and Output 02/09/17 02/09/17 02/10/17 15:00 23:00 07:00 Intake Total 1220 ml 500 ml Balance 1220 ml 500 ml Results Result Diagram: 02/07/17 0540 02/10/17 0734 Results 24 hrs Laboratory Tests Test 02/09/17 17:45 02/09/17 20:22 02/10/17 07:34 02/10/17 08:04 Bedside Glucose 123 128 105 Blood Urea Nitrogen 20 Creatinine 0.93 Test 02/10/17 11:54 Bedside Glucose 112 Medications Medications Current Medications Lorazepam (Ativan) 0.5 mg Q8H PRN PO ANXIETY; Start 01/30/17 at 05:00 Ondansetron HCl (Zofran Inj) 4 mg Q6H PRN IV NAUSEA AND/OR VOMITING Last administered on 02/04/17 11:54; Admin Dose 4 MG; Start 01/30/17 at 05:00 Acetaminophen (Tylenol Tab) 650 mg Q6H PRN PO PAIN LEVEL 1-3 OR FEVER Last administered on 01/30/17 12:04; Admin Dose 650 MG; Start 01/30/17 at 05:00 Diagnostic Test (Pha) (Accu-Chek) 1 ea 02 XX Last administered on 02/05/17 02: 00; Admin Dose 1 EA; Start 01/31/17 at 02:00 Alprazolam (Xanax) 1 mg QHS PRN PO ANXIETY; Start 01/30/17 at 05:00 Benazepril HCl (Lotensin) 40 mg DAILY PO Last administered on 01/31/17 08:08; Admin Dose 40 MG; Start 01/30/17 at 09:00; Status Future Hold Docusate Sodium (Colace) 100 mg BID PO Last administered on 02/10/17 08:37; Admin Dose 100 MG; Start 01/30/17 at 09:00 Gabapentin (Neurontin) 100 mg BID PO Last administered on 02/10/17 08:37; Admin Dose 100 MG; Start 01/30/17 at 09:00 Acetaminophen/ Hydrocodone Bitart ([place] (10325)) 1 tab Q6H PRN PO PAIN Last administered on 02/04/17 02:49; Admin Dose 1 TAB; Start 01/30/17 at 05:00 Miscellaneous Information 1 ea NOTE XX ; Start 01/30/17 at 05:00 Glucose (Glutose) 15 gm Q15M PRN PO DECREASED GLUCOSE; Start 01/30/17 at 05:00 Glucose (Glutose) 22.5 gm Q15M PRN PO DECREASED GLUCOSE; Start 01/30/17 at 05: 00 Dextrose (D50w Syringe) 25 ml Q15M PRN IV DECREASED GLUCOSE; Start 01/30/17 at 05:00 Dextrose (D50w Syringe) 50 ml Q15M PRN IV DECREASED GLUCOSE; Start 01/30/17 at 05:00 Glucagon (Glucagen) 1 mg Q15M PRN IM DECREASED GLUCOSE; Start 01/30/17 at 05:00 Glucose (Glutose) 15 gm Q15M PRN BUCCAL DECREASED GLUCOSE; Start 01/30/17 at 05 :00 Nitroglycerin (Nitroglycerin (Sl Tab) 0.4 Mg) 1 tab [id number] PRN SL CHEST PAIN ; Start 01/30/17 at 05:30 Heparin Sodium (Porcine) (Heparin (5000 Units/0.5 ml)) 5,000 unit Q8 SC Last administered on 02/10/17 14:12; Admin Dose 5,000 UNIT; Start 02/01/17 at 18:00 Metoprolol Tartrate (Lopressor) 12.5 mg BID PRN PO BP>130 systolic; Start 02/02 at 12:00 Colchicine (Colchicine) 0.6 mg DAILY PO Last administered on 02/10/17 08:42; Admin Dose 0.6 MG; Start 02/03/17 at 09:00 Miscellaneous Information (Pending [facility]yl Order For Wound Care) This patient deleon... PRN PRN XX WOUND CARE; Start 02/02/17 at 17:30 Nystatin (Nystatin Powder) 1 applic BID TOP Last administered on 02/10/17 08: 39; Admin Dose 1 APPLIC; Start 02/02/17 at 21:00 Hydromorphone HCl (Dilaudid) 1 mg Q6H PRN IV PAIN Last administered on 11:07; Admin Dose 1 MG; Start 02/04/17 at 14:30 Senna (Senokot) 2 tab BID PO Last administered on 02/07/17 09:50; Admin Dose 2 TAB; Start 02/05/17 at 13:00 Furosemide (Lasix) 10 mg DAILY PO Last administered on 02/10/17 08:38; Admin Dose 10 MG; Start 02/05/17 at 14:30 Ferrous Gluconate (Fergon) 325 mg TID PO Last administered on 02/10/17 14:00; Admin Dose 325 MG; Start 02/06/17 at 13:00 Loratadine 10 mg 10 mg DAILY PO ; Start 02/09/17 at 14:00 Cefazolin Sodium/ Dextrose (Ancef 2 Gm/50 ml (Pmx)) 50 ml @ 100 mls/hr PRE-OP ONCE IVPB ; Start 02/10/17 at 15:00; Stop 02/10/17 at 15:29 ALBERT MARION MD Feb 10, 2017 15:11
--- NOTE | 2017-02-10 15:31 | PN ---
Date/Time of Note Date/Time of Note DATE: 02/10/17 TIME: 15:28 Assessment/Plan VTE Prophylaxis VTE Prophylaxis Intervention: heparin Lines/Catheters IV Catheter Type (from [facility]): [facility] Urinary Cath still in place: No Assessment/Plan Chief Complaint/Hosp Course Assessment and plan 1. Chest pain. troponins negative. Echocardiogram did show previous moderate -sized pericardial effusion. Suspect etiology for chest pain. Cardiology following. Continue diuresis. 2. Moderate pericardial effusion. Patient with worse pericardial effusion. plan for pericardial window if cleared by anesthesia 3. Acute respiratory failure likely secondary to #2. Continue diuresis. Of note patient does have history of pulmonary embolism was not a candidate for CT angiogram due to weight. CT scan was also ordered but patient could not tolerate procedure due to orthopnea. Bilateral lower extremity Doppler was negative for DVT. Continue with bone crusher recommendation 4. Essential hypertension. On antihypertensives. To be adjusted as needed. 5. History of depression. Continue antidepressants. stable 6. Type 2 diabetes. On insulin regimen. Metformin on hold due to [place] I. stable 7. Acute kidney injury. Medications to be renally dosed. appears to be slowly improving. Food Service Coordinator following 8. Morbid obesity. Morbid obesity. Weight reduction was advised. Disposition and plan: Plan for pericardial window tentatively 02/11/17. Will follow up Discussed plan of care with Dr. Hernandez Problems: Subjective 24 Hr Interval Summary Free Text/Dictation still has some dyspnea, not significantly changed Exam/Review of Systems Vital Signs Vitals Vital Signs Date Time Temp Pulse Resp B/P Pulse Ox O2 Delivery O2 Flow Rate FiO2 02/10/17 15:17 98.0 82 16 141/77 95 02/09/17 20:24 Nasal Cannula 2.0 Intake and Output 02/09/17 02/09/17 02/10/17 15:00 23:00 07:00 Intake Total 1220 ml 500 ml Balance 1220 ml 500 ml Exam Constitutional: alert, obese (Morbidly) Psych: nl mood/affect Head: normocephalic Neck: supple, No jvd Respiratory: no wheezing/rhonchi Cardiovascular: other (Diminished heart sounds) Gastrointestinal: non-tender, soft Musculoskeletal: nl extremities to inspection, nl gait and stance Neurological: CONSUMER INSIGHT ANALYST II-XII intact, nl mental status, nl speech Results Result Diagram: 02/07/17 0540 02/10/17 0734 Results 24 hrs Laboratory Tests Test 02/09/17 17:45 02/09/17 20:22 02/10/17 07:34 02/10/17 08:04 Bedside Glucose 123 128 105 Blood Urea Nitrogen 20 Creatinine 0.93 Test 02/10/17 11:54 Bedside Glucose 112 Medications Medications Current Medications Lorazepam (Ativan) 0.5 mg Q8H PRN PO ANXIETY; Start 01/30/17 at 05:00 Ondansetron HCl (Zofran Inj) 4 mg Q6H PRN IV NAUSEA AND/OR VOMITING Last administered on 02/04/17 11:54; Admin Dose 4 MG; Start 01/30/17 at 05:00 Acetaminophen (Tylenol Tab) 650 mg Q6H PRN PO PAIN LEVEL 1-3 OR FEVER Last administered on 01/30/17 12:04; Admin Dose 650 MG; Start 01/30/17 at 05:00 Diagnostic Test (Pha) (Accu-Chek) 1 ea 02 XX Last administered on 02/05/17 02: 00; Admin Dose 1 EA; Start 01/31/17 at 02:00 Alprazolam (Xanax) 1 mg QHS PRN PO ANXIETY; Start 01/30/17 at 05:00 Benazepril HCl (Lotensin) 40 mg DAILY PO Last administered on 01/31/17 08:08; Admin Dose 40 MG; Start 01/30/17 at 09:00; Status Future Hold Docusate Sodium (Colace) 100 mg BID PO Last administered on 02/10/17 08:37; Admin Dose 100 MG; Start 01/30/17 at 09:00 Gabapentin (Neurontin) 100 mg BID PO Last administered on 02/10/17 08:37; Admin Dose 100 MG; Start 01/30/17 at 09:00 Acetaminophen/ Hydrocodone Bitart ([place] (10/325)) 1 tab Q6H PRN PO PAIN Last administered on 02/04/17 02:49; Admin Dose 1 TAB; Start 01/30/17 at 05:00 Miscellaneous Information 1 ea NOTE XX ; Start 01/30/17 at 05:00 Glucose (Glutose) 15 gm Q15M PRN PO DECREASED GLUCOSE; Start 01/30/17 at 05:00 Glucose (Glutose) 22.5 gm Q15M PRN PO DECREASED GLUCOSE; Start 01/30/17 at 05: 00 Dextrose (D50w Syringe) 25 ml Q15M PRN IV DECREASED GLUCOSE; Start 01/30/17 at 05:00 Dextrose (D50w Syringe) 50 ml Q15M PRN IV DECREASED GLUCOSE; Start 01/30/17 at 05:00 Glucagon (Glucagen) 1 mg Q15M PRN IM DECREASED GLUCOSE; Start 01/30/17 at 05:00 Glucose (Glutose) 15 gm Q15M PRN BUCCAL DECREASED GLUCOSE; Start 01/30/17 at 05 :00 Nitroglycerin (Nitroglycerin (Sl Tab) 0.4 Mg) 1 tab [id number] PRN SL CHEST PAIN ; Start 01/30/17 at 05:30 Heparin Sodium (Porcine) (Heparin (5000 Units/0.5 ml)) 5,000 unit Q8 SC Last administered on 02/10/17 14:12; Admin Dose 5,000 UNIT; Start 02/01/17 at 18:00 Metoprolol Tartrate (Lopressor) 12.5 mg BID PRN PO BP>130 systolic; Start 02/02 at 12:00 Colchicine (Colchicine) 0.6 mg DAILY PO Last administered on 02/10/17 08:42; Admin Dose 0.6 MG; Start 02/03/17 at 09:00 [facility] This patient deleon... PRN PRN XX WOUND CARE; Start 02/02/17 at 17:30 Nystatin (Nystatin Powder) 1 applic BID TOP Last administered on 02/10/17 08: 39; Admin Dose 1 APPLIC; Start 02/02/17 at 21:00 Hydromorphone HCl (Dilaudid) 1 mg Q6H PRN IV PAIN Last administered on 11:07; Admin Dose 1 MG; Start 02/04/17 at 14:30 Senna (Senokot) 2 tab BID PO Last administered on 02/07/17 09:50; Admin Dose 2 TAB; Start 02/05/17 at 13:00 Furosemide (Lasix) 10 mg DAILY PO Last administered on 02/10/17 08:38; Admin Dose 10 MG; Start 02/05/17 at 14:30 Ferrous Gluconate (Fergon) 325 mg TID PO Last administered on 02/10/17t 14:00; Admin Dose 325 MG; Start 02/06/17 at 13:00 Loratadine 10 mg 10 mg DAILY PO ; Start 02/09/17 at 14:00 Cefazolin Sodium/ Dextrose (Ancef 2 Gm/50 ml (Pmx)) 50 ml @ 100 mls/hr PRE-OP ONCE IVPB ; Start 02/10/17 at 15:00; Stop 02/10/17 at 15:29 YAQUELIN RITTER Feb 10, 2017 15:31
[2017-02-11] VITALS (47 sets, daily range): BP systolic 97–187; BP diastolic 43–78; PULSE 69–106; RESP 12–43
[2017-02-11] MEDS: ACCU-CHEK XX SCH (02:00)
[2017-02-11] MEDS: HYDROmorphONE 1 MG/ML SYG IV PRN ×2 (05:00→15:25)
[2017-02-11] MEDS: HEPARIN 5,000 UNIT/0.5 ML VIAL SC SCH ×2 (05:58→14:00)
[2017-02-11] MEDS ORDERED: MIDAZOLAM 1 MG/ML 5 ML INJ ONE (07:00)
[2017-02-11] MEDS ORDERED: ROCURONIUM 50 MG INJ ONE ×2 (07:00→11:48)
[2017-02-11] MEDS: INSULIN ASPART [NOVOLOG] 3 ML PEN SC SCH ×3 (07:36→21:00)
[2017-02-11] MEDS: CALCIUM CARBONATE 500 MG CHEW TAB PO SCH ×3 (07:37→18:35)
[2017-02-11] MEDS: DOCUSATE SODIUM 100 MG CAP PO SCH ×2 (07:37→21:00)
[2017-02-11] MEDS: LORATADINE 10 MG TAB PO SCH (07:37)
[2017-02-11] MEDS: FUROSEMIDE 20 MG TAB PO SCH (07:38)
[2017-02-11] MEDS: GABAPENTIN 100 MG CAP PO SCH ×2 (07:38→21:00)
[2017-02-11] MEDS: FERROUS GLUCONATE (EC) 325 MG TAB PO SCH ×3 (07:38→21:00)
[2017-02-11] MEDS: SENNA TAB PO SCH ×2 (07:38→21:00)
[2017-02-11] MEDS: COLCHICINE 0.6 MG TAB PO SCH (07:38)
[2017-02-11] MEDS: NYSTATIN 30 GM POWDER BTL TOP SCH ×2 (09:12→21:00)
[2017-02-11] MEDS ORDERED: PHENYLephrine (100 MCG/ML) 5ML SYG ONE (09:57)
[2017-02-11] MEDS ORDERED: LIDOCAINE 1% (MDV) 20 ML INJ ONE (11:01)
[2017-02-11] MEDS ORDERED: ETOMIDATE 20 MG INJ ONE (11:48)
[2017-02-11] MEDS ORDERED: GLYCOPYRROLATE 0.4 MG INJ ONE (11:48)
[2017-02-11] MEDS ORDERED: CEFAZOLIN 1 GM INJ ONE (11:48)
[2017-02-11] MEDS ORDERED: NEOSTIGMINE 3 MG/3 ML SYRINGE ONE (11:48)
[2017-02-11] MEDS ORDERED: FLUMAZENIL 0.5 MG INJ ONE (12:14)
--- NOTE | 2017-02-11 12:15 | SIPON ---
Date/Time of Note Date/Time of Note DATE: 02/11/17 TIME: 12:12 Operative Report Preoperative Diagnosis large pericardial effusion Postoperative Diagnosis same Operation/Procedure Performed left thoracotomy and pericardiocentesis Surgeon: ETIENNE ORTIZ MD Co-Surgeon: CORA GUERRERO Anesthesia Type: general Estimated Blood Loss: minimal Transfusion Required: no Specimens pericardial fluid Grafts/Implants: none Complications: no ETIENNE ORTIZ MD Feb 11, 2017 12:14
[2017-02-11] MEDS ORDERED: ALBUTEROL 0.083% (NEB) 2.5 MG/3 ML AMP ONE (12:24)
[2017-02-11] MEDS ORDERED: ALBUTEROL 0.5% (NEB) 2.5 MG/0.5 ML AMP ONE (12:24)
[2017-02-11] MEDS ORDERED: PROVENTIL HFA 6.7GM INHALER ONE (12:25)
[2017-02-11] MEDS ORDERED: EPINEPHrine 100 MCG/10 ML SYG IV ONE (12:28)
[2017-02-11] MEDS ORDERED: ONDANSETRON 4 MG INJ IV PRN (12:30)
[2017-02-11] MEDS ORDERED: HYDROCODONE/APAP (5/325) TAB PO PRN (12:30)
[2017-02-11] MEDS: PROPOFOL 100 ML IV SCH ×3 (13:30→20:12)
[2017-02-11] MEDS: D5-NS + KCL 20 MEQ 1,000 ML IV SCH ×2 (13:36→22:16)
--- NOTE | 2017-02-11 14:14 | OPR ---
DATE OF OPERATION: 02/11/2017 SURGEON: Santosh Ashby MD. TRESTLE MECHANIC: SERVANDO Gomez. ANESTHESIOLOGIST: Se Hilliard MD. PREOPERATIVE DIAGNOSIS: Large pericardial effusion. POSTOPERATIVE DIAGNOSIS: Large pericardial effusion. OPERATION PERFORMED: 1. Insertion of right radial arterial line. 2. Left anterior thoracotomy. 3. Pericardial centesis. ANESTHESIA: General endotracheal. COMPLICATIONS: None. OPERATIVE FINDINGS AT SURGERY: 600 mL of bloody fluid was drained. On GELACIO there was a small amount of fluid in the left posterior aspect of the ventricle after drainage. LV function was otherwise normal. INDICATIONS: The patient is a 46-year-old super morbid obese female who was admitted with shortness of breath and pressure. She had an echocardiogram done which showed a large pericardial effusion. She had initial medical therapy to decrease this fluid collection, but a repeat echo showed the same amount of pericardial fluid with some early RV collapse. She was referred for window. The benefits, risks and alternatives were explained, she understood and consented. OPERATIVE PROCEDURE: The patient was brought to the operating room, she was placed in the supine position. A right radial arterial line was placed after prepping and draping using the Seldinger technique. Once this was done, anesthesia induced the patient and intubated her without incident. Her left breast was pulled back and then she was prepped and draped in the usual sterile fashion. A small left anterior thoracotomy incision was made, in the fifth inner space. Once I was able to feel the heart, I introduced a needle into the space and drained some sanguineous fluid. We placed the wire through the needle and then dilated up serially and then placed a pigtail catheter through the wire. The wire was removed and connected to tubing, and we then proceeded to suction off 600 mL of bloody fluid. We confirmed by GELACIO that the fusion decreased in size, and we also confirmed using pressure monitor that there was no pressure within the space. Once we drained all the fluid, we closed the incision using #0 Vicryl for the deep layer and #3-0 Vicryl for the subcutaneous tissues, and catheter was secured using a nylon suture. Dressings were applied, after closing the incision, with #4-0 Monocryl. She was attempted to be extubated but failed and was re-intubated in the operating room and taken to the ICU in stable condition. Dictated By: Santosh Ashby MD /shania/hiral /Document#: [id number] CC: Santosh Ashby MD
[2017-02-11] MEDS: CEFAZOLIN 2 GM/50 ML (PMX) 50 ML IVPB SCH ×2 (14:36→20:11)
--- NOTE | 2017-02-11 14:56 | RADRPT ---
PROCEDURE: XR Chest. CLINICAL INDICATION: Post intubation TECHNIQUE: Single frontal view of the chest was obtained COMPARISON: 02/01/2017 FINDINGS: See impression. IMPRESSION: Interval placement of endotracheal tube with tip projecting 4.2 cm above the jeanette. There is decre ased lung volumes. Worsening perihilar ground-glass opacities suggestive of worsening interstitial pulmonary edema. Decreased aeration of the left lung base suggestive of worsening pleural effusion versus atelectasis. Superimposed infection to be determined clinically. Otherwise, no convincing i nterval change compared to 02/01/17. RPTAT: EE Physician Quique Date Time Electronically viewed and signed by Physician Quique on 02/11/2017 14:56 /
--- NOTE | 2017-02-11 14:59 | CONS ---
Date/Time of Note Date/Time of Note DATE: 02/11/17 TIME: 14:56 Assessment/Plan Assessment/Plan Additional Assessment/Plan Additional Assessment/Plan 46 yo Female with 1. Chest pain. 2. Moderate pericardial effusion S/p Pericardiocentesis 3. Hypoxia 4. Essential hypertension 5. Depression. 6. Type 2 diabetes mellitus 7. Acute kidney injury 8. Microcytic, hypochromic anemia 9. Morbid Obesity 10. Hyperkalemia- Resolved 11. Respiratory failure on Vent Repeat renal function studies Non oliguric Previous JANIS resolved Will cont to follow in ICU Consultation Date/Type/Reason Admit Date/Time Jan 30, 2017 at 02:47 Initial Consult Date 02/01/17 Type of Consultation: Renal Reason for Consultation JANIS 24 HR Interval Summary Free Text/Dictation S/p Pericardiocentesis. , Unfortunately remains intubated, No pressors, Good UO , No labs this am. Subjective hx not possible: pt critical status Constitutional: requiring O2 Exam/Review of Systems Vital Signs Vitals Vital Signs Date Time Temp Pulse Resp B/P Pulse Ox O2 Delivery O2 Flow Rate FiO2 02/11/17 14:00 102 21 125/73 100 Mechanical Ventilator 02/11/17 13:30 80 02/11/17 13:15 98.2 02/11/17 08:00 2.0 Intake and Output 02/10/17 02/10/17 02/11/17 15:00 23:00 07:00 Intake Total 880 ml 400 ml Balance 880 ml 400 ml Exam ENMT: intubated Results Result Diagram: 02/07/17 0540 02/10/17 0734 Results 24 hrs Laboratory Tests Test 02/10/17 17:34 02/10/17 21:03 02/11/17 07:36 02/11/17 09:52 Bedside Glucose 98 97 96 Serum HCG, Qualitative NEGATIVE Medications Medications Current Medications Lorazepam (Ativan) 0.5 mg Q8H PRN PO ANXIETY; Start 01/30/17 at 05:00 Acetaminophen (Tylenol Tab) 650 mg Q6H PRN PO PAIN LEVEL 1-3 OR FEVER Last administered on 01/30/17 12:04; Admin Dose 650 MG; Start 01/30/17 at 05:00 Diagnostic Test (Pha) (Accu-Chek) 1 ea 02 XX Last administered on 02/05/17 02: 00; Admin Dose 1 EA; Start 01/31/17 at 02:00 Alprazolam (Xanax) 1 mg QHS PRN PO ANXIETY; Start 01/30/17 at 05:00 Benazepril HCl (Lotensin) 40 mg DAILY PO Last administered on 01/31/17 08:08; Admin Dose 40 MG; Start 01/30/17 at 09:00; Status Future Hold Docusate Sodium (Colace) 100 mg BID PO Last administered on 02/10/17 21:01; Admin Dose 100 MG; Start 01/30/17 at 09:00 Gabapentin (Neurontin) 100 mg BID PO Last administered on 02/10/17 21:01; Admin Dose 100 MG; Start 01/30/17 at 09:00 Acetaminophen/ Hydrocodone Bitart ([place] (10/325)) 1 tab Q6H PRN PO PAIN Last administered on 02/04/17 02:49; Admin Dose 1 TAB; Start 01/30/17 at 05:00 Miscellaneous Information 1 ea NOTE XX ; Start 01/30/17 at 05:00 Glucose (Glutose) 15 gm Q15M PRN PO DECREASED GLUCOSE; Start 01/30/17 at 05:00 Glucose (Glutose) 22.5 gm Q15M PRN PO DECREASED GLUCOSE; Start 01/30/17 at 05: 00 Dextrose (D50w Syringe) 25 ml Q15M PRN IV DECREASED GLUCOSE; Start 01/30/17 at 05:00 Dextrose (D50w Syringe) 50 ml Q15M PRN IV DECREASED GLUCOSE; Start 01/30/17 at 05:00 Glucagon (Glucagen) 1 mg Q15M PRN IM DECREASED GLUCOSE; Start 01/30/17 at 05:00 Glucose (Glutose) 15 gm Q15M PRN BUCCAL DECREASED GLUCOSE; Start 01/30/17 at 05 :00 Nitroglycerin (Nitroglycerin (Sl Tab) 0.4 Mg) 1 tab [id number] PRN SL CHEST PAIN ; Start 01/30/17 at 05:30 Heparin Sodium (Porcine) (Heparin (5000 Units/0.5 ml)) 5,000 unit Q8 SC Last administered on 02/10/17 14:12; Admin Dose 5,000 UNIT; Start 02/01/17 at 18:00 Metoprolol Tartrate (Lopressor) 12.5 mg BID PRN PO BP>130 systolic; Start 02/02 at 12:00 Colchicine (Colchicine) 0.6 mg DAILY PO Last administered on 02/10/17 08:42; Admin Dose 0.6 MG; Start 02/03/17 at 09:00 Miscellaneous Information (Pending Santyl Order For Wound Care) This patient deleon... PRN PRN XX WOUND CARE; Start 02/02/17 at 17:30 Nystatin (Nystatin Powder) 1 applic BID TOP Last administered on 02/11/17 09:12 ; Admin Dose 1 APPLIC; Start 02/02/17 at 21:00 Hydromorphone HCl (Dilaudid) 1 mg Q6H PRN IV PAIN Last administered on 19:27; Admin Dose 1 MG; Start 02/04/17 at 14:30 Senna (Senokot) 2 tab BID PO Last administered on 02/10/17 21:01; Admin Dose 2 TAB; Start 02/05/17 at 13:00 Furosemide (Lasix) 10 mg DAILY PO Last administered on 02/10/17 08:38; Admin Dose 10 MG; Start 02/05/17 at 14:30 Ferrous Gluconate (Fergon) 325 mg TID PO Last administered on 02/10/17 21:01; Admin Dose 325 MG; Start 02/06/17 at 13:00 Loratadine 10 mg 10 mg DAILY PO ; Start 02/09/17 at 14:00 Cefazolin Sodium/ Dextrose (Ancef 2 Gm/50 ml (Pmx)) 50 ml @ 100 mls/hr Q8H IVPB Last administered on 02/11/17 14:36; Admin Dose 100 MLS/HR; Start 02/11/17 at 12:30; Stop 02/12/17 at 12:29 Acetaminophen/ Hydrocodone Bitart ([place] (5/325)) 1 tab Q6H PRN PO PAIN LEVEL 6 -10; Start 02/11/17 at 12:30 Ondansetron HCl 4 mg 4 mg Q6H PRN IV NAUSEA AND/OR VOMITING; Start 02/11/17 at 12:30 Potassium Chloride/Dextrose/ Sod Cl 1,000 ml @ 100 mls/hr Q10H IV Last administered on 02/11/17 13:36; Admin Dose 100 MLS/HR; Start 02/11/17 at 12:16 Propofol (Diprivan) 100 ml @ 3.672 mls/ hr Q12H IV Last administered on 13:30; Admin Dose 3.672 MLS/HR; Start 02/11/17 at 13:30 ALBERT MARION MD Feb 11, 2017 14:59
[2017-02-11 15:38] LABS: AADO2 Arterial 338.1 mmHg (7.0-24.0); Arterial Base Excess 3.8 mmol/L (-3.0-3); Arterial COHb 0.2 % (0.0-3.0); Arterial Fraction of Oxyhgb 98.8 % (93.0-99.0); Arterial HCO3 27.6 mmol/L (22.0-26.0); Arterial MetHb 0.2 % (0.0-1.5); Arterial Total Hemglobin 11.8 g/dl (12.0-18.0); MODE VENT - AC
[2017-02-11 16:29] LABS: FLD PMN% 23.5 %; FLD RBC 1841 /uL; FLD WBC 3996 /cmm
--- NOTE | 2017-02-11 16:35 | PN ---
Date/Time of Note Date/Time of Note DATE: 02/11/17 TIME: 16:28 Assessment/Plan VTE Prophylaxis VTE Prophylaxis Intervention: SCD's Lines/Catheters IV Catheter Type (from Nrsg): A Line Central line still needed: Yes Urinary Cath still in place: Yes Reason Cath still needed: other (indicate) Assessment/Plan Assessment/Plan 1. Pericardial effusion, s/p left anterior thoracotomy and pericardial centesis , follow up with fluid tests 2. Acute respiratory failure, on vent, follow up with pulmonology for weaning 3. Essential hypertension. On antihypertensives. To be adjusted as needed. 4. Acute kidney injury, improving, follow up with BMP 5. Major depression 6. Type 2 diabetes. On insulin regimen 7. Morbid obesity 8. DVT prophylaxis: SCD 9. Case discussed with staff and Dr. Nicole. I talked to her friend at bedside , critical care time 45 minutes Subjective 24 Hr Interval Summary Free Text/Dictation on vent, sedated Exam/Review of Systems Vital Signs Vitals Vital Signs Date Time Temp Pulse Resp B/P Pulse Ox O2 Delivery O2 Flow Rate FiO2 02/11/17 15:45 40 02/11/17 15:00 97 20 120/68 100 Mechanical Ventilator 02/11/17 13:15 98.2 02/11/17 08:00 2.0 Intake and Output 02/10/17 02/10/17 02/11/17 15:00 23:00 07:00 Intake Total 880 ml 400 ml Balance 880 ml 400 ml Exam Constitutional: non-verbal, obese Head: atraumatic, normocephalic Eyes: EOMI, PERRL, nl conjunctiva, nl lids ENMT: nl external ears & nose, nl lips & teeth, nl nasal mucosa & septum Neck: non-tender, supple Respiratory: clear to auscultation, normal air movement, No congested cough, No crackles/rales, No diminished breath sounds, No intercostal retraction, No labored breathing, No other, No respirations, No tactile fremitus, No wheezing Cardiovascular: nl pulses, regular rate and rhythm, No S3, No S4, No bruits, No diastolic murmur, No edema, No gallop, No irregular rhythm, No jugular venous distention (JVD), No murmurs/extra sounds, No other, No rub, No systolic murmur Gastrointestinal: nl liver, spleen, soft, No ascites, No bowel sounds, No distended, No firm, No hepatomegaly, No mass , No other, No rebound or guarding, No splenomegaly, No surgical scars Musculoskeletal: nl extremities to inspection Extremities: normal pulses, No calf tenderness, No clubbing, No cyanosis, No edema, No other, No palpable cord, No pitting pedal edema Neurological: unresponsive (sedated) Skin: nl turgor Lymph: nl lymph nodes Results Result Diagram: 02/07/17 0540 02/10/17 0734 Results 24 hrs Laboratory Tests Test 02/10/17 17:34 02/10/17 21:03 02/11/17 07:36 02/11/17 09:52 Bedside Glucose 98 97 96 Serum HCG, Qualitative NEGATIVE Test 02/11/17 15:28 Blood Gas Specimen Source Blood arterial Arterial Blood Date Drawn 02/11/2017 3:00:14 PM Arterial Blood pH (Temp corrected) 7.473 H Arterial Blood pCO2 (Temp correct) 38.5 Arterial Blood pO2 (Temp corrected) 191.9 H Arterial Blood HCO3 27.6 H Arterial Blood Base Excess 3.8 H Arterial Blood Oxygen Saturation 99.2 H Kareem Test N/A Arterial Blood Gas Puncture Site A-Line Arterial Blood Carboxyhemoglobin 0.2 Arterial Blood Methemoglobin 0.2 Blood Gas A-a O2 Differential 338.1 H Oxyhemoglobin Percent 98.8 Total Hemoglobin 11.8 L Blood Gas Temperature 37.0 Blood Gas Respiration Rate 20.0 Blood Gas Actual Respiration Rate 20 Blood Gas Modality VENT - AC FiO2 80.0 Blood Gas Tidal Volume 600.0 Blood Gas Low PEEP Setting 5.0 Blood Gas Notified Whom JLD Blood Gas Notified Time 02/11/2017 3:38:12 PM Medications Medications Current Medications Lorazepam (Ativan) 0.5 mg Q8H PRN PO ANXIETY; Start 01/30/17 at 05:00 Acetaminophen (Tylenol Tab) 650 mg Q6H PRN PO PAIN LEVEL 1-3 OR FEVER Last administered on 01/30/17 12:04; Admin Dose 650 MG; Start 01/30/17 at 05:00 Diagnostic Test (Pha) (Accu-Chek) 1 ea 02 XX Last administered on 02/05/17 02: 00; Admin Dose 1 EA; Start 01/31/17 at 02:00 Alprazolam (Xanax) 1 mg QHS PRN PO ANXIETY; Start 01/30/17 at 05:00 Benazepril HCl (Lotensin) 40 mg DAILY PO Last administered on 01/31/17 08:08; Admin Dose 40 MG; Start 01/30/17 at 09:00; Status Future Hold Docusate Sodium (Colace) 100 mg BID PO Last administered on 02/10/17 21:01; Admin Dose 100 MG; Start 01/30/17 at 09:00 Gabapentin (Neurontin) 100 mg BID PO Last administered on 02/10/17 21:01; Admin Dose 100 MG; Start 01/30/17 at 09:00 Acetaminophen/ Hydrocodone Bitart ([place] (10325)) 1 tab Q6H PRN PO PAIN Last administered on 02/04/17 02:49; Admin Dose 1 TAB; Start 01/30/17 at 05:00 Miscellaneous Information 1 ea NOTE XX ; Start 01/30/17 at 05:00 Glucose (Glutose) 15 gm Q15M PRN PO DECREASED GLUCOSE; Start 01/30/17 at 05:00 Glucose (Glutose) 22.5 gm Q15M PRN PO DECREASED GLUCOSE; Start 01/30/17 at 05: 00 Dextrose (D50w Syringe) 25 ml Q15M PRN IV DECREASED GLUCOSE; Start 01/30/17 at 05:00 Dextrose (D50w Syringe) 50 ml Q15M PRN IV DECREASED GLUCOSE; Start 01/30/17 at 05:00 Glucagon (Glucagen) 1 mg Q15M PRN IM DECREASED GLUCOSE; Start 01/30/17 at 05:00 Glucose (Glutose) 15 gm Q15M PRN BUCCAL DECREASED GLUCOSE; Start 01/30/17 at 05 :00 Nitroglycerin (Nitroglycerin (Sl Tab) 0.4 Mg) 1 tab [id number] PRN SL CHEST PAIN ; Start 01/30/17 at 05:30 Heparin Sodium (Porcine) (Heparin (5000 Units/0.5 ml)) 5,000 unit Q8 SC Last administered on 02/10/17 14:12; Admin Dose 5,000 UNIT; Start 02/01/17 at 18:00 Metoprolol Tartrate (Lopressor) 12.5 mg BID PRN PO BP>130 systolic; Start 02/02 at 12:00 Colchicine (Colchicine) 0.6 mg DAILY PO Last administered on 02/10/17 08:42; Admin Dose 0.6 MG; Start 02/03/17 at 09:00 Miscellaneous Information ([facility]) This patient deleon... PRN PRN XX WOUND CARE; Start 02/02/17 at 17:30 Nystatin (Nystatin Powder) 1 applic BID TOP Last administered on 02/11/17 09:12 ; Admin Dose 1 APPLIC; Start 02/02/17 at 21:00 Hydromorphone HCl (Dilaudid) 1 mg Q6H PRN IV PAIN Last administered on 15:25; Admin Dose 1 MG; Start 02/04/17 at 14:30 Senna (Senokot) 2 tab BID PO Last administered on 02/10/17 21:01; Admin Dose 2 TAB; Start 02/05/17 at 13:00 Furosemide (Lasix) 10 mg DAILY PO Last administered on 02/10/17 08:38; Admin Dose 10 MG; Start 02/05/17 at 14:30 Ferrous Gluconate (Fergon) 325 mg TID PO Last administered on 02/10/17 21:01; Admin Dose 325 MG; Start 02/06/17 at 13:00 Loratadine 10 mg 10 mg DAILY PO ; Start 02/09/17 at 14:00 Cefazolin Sodium/ Dextrose (Ancef 2 Gm/50 ml (Pmx)) 50 ml @ 100 mls/hr Q8H IVPB Last administered on 02/11/17 14:36; Admin Dose 100 MLS/HR; Start 02/11/17 at 12:30; Stop 02/12/17 at 12:29 Acetaminophen/ Hydrocodone Bitart ([place] (5/325)) 1 tab Q6H PRN PO PAIN LEVEL 6 -10; Start 02/11/17 at 12:30 Ondansetron HCl 4 mg 4 mg Q6H PRN IV NAUSEA AND/OR VOMITING; Start 02/11/17 at 12:30 Potassium Chloride/Dextrose/ Sod Cl 1,000 ml @ 100 mls/hr Q10H IV Last administered on 02/11/17 13:36; Admin Dose 100 MLS/HR; Start 02/11/17 at 12:16 Propofol (Diprivan) 100 ml @ 3.672 mls/ hr Q12H IV Last administered on t 13:30; Admin Dose 3.672 MLS/HR; Start 02/11/17 at 13:30 SVEN LOPEZ MD Feb 11, 2017 16:35
[2017-02-11 16:49] LABS: BASOPHILS % 0.3 % (0.0-2.0); EOSINOPHILS # 0.1 10^3/ul (0.0-0.5); EOSINOPHILS % 1.1 % (0.0-7.0); HEMOGLOBIN 8.5 g/dl (12.0-16.0); LYMPHOCYTES # 1.4 10^3/ul (0.8-2.9); LYMPHOCYTES % 15.4 % (15.0-51.0); MEAN CORPUSCULAR HEMOGLOBIN 23.2 pg (29.0-33.0); MEAN CORPUSCULAR HGB CONC 30.4 g/dl (32.0-37.0); MEAN CORPUSCULAR VOLUME 76.5 fl (82.0-101.0); MEAN PLATELET VOLUME 8.4 fl (7.4-10.4); MONOCYTE # 0.5 10^3/ul (0.3-0.9); MONOCYTES % 5.2 % (0.0-11.0); NEUTROPHILS % 77.1 % (39.0-77.0); PLATELET COUNT 357 10^3/UL (140-415); RED BLOOD COUNT 3.66 10^6/ul (4.20-5.40); WHITE BLOOD COUNT 9.1 10^3/ul (4.8-10.8)
[2017-02-11 17:16] LABS: CALCIUM 8.3 mg/dl (8.4-10.2); CREATININE 0.84 mg/dl (0.44-1.00); MAGNESIUM 1.6 mg/dl (1.7-2.5); PHOSPHORUS 2.5 mg/dl (2.5-4.9); POTASSIUM 3.7 mmol/L (3.5-5.1)
[2017-02-11 18:01] LABS: FLD MN% 76.5 %
[2017-02-11 18:03] LABS: FLD CLARITY BLOODY; FLD COLOR RED; FLD TYPE PERICARDIAL FLUID
--- NOTE | 2017-02-11 18:03 | CONS ---
Date/Time of Note Date/Time of Note DATE: 02/11/17 TIME: 17:58 Assessment/Plan Assessment/Plan Additional Assessment/Plan Pericardial effusion s/p pericardial window 02/11/17 Preserved ejection fraction Respiratory failure, vent -dependent Morbid obesity Obstructive sleep apnea -pt s/p pericardial window with initial removal of 600mL blood fluid. Requested fluid to be sent for cytology. Pt reintubated in OR after initial post op extubation. Vent management as per pulmonary. Consultation Date/Type/Reason Admit Date/Time Jan 30, 2017 at 02:47 Initial Consult Date 02/01/17 Type of Consultation: cv 24 HR Interval Summary Free Text/Dictation pt s/p pericardial window today. In ICU, reintubated in OR after initial post op extubation. Exam/Review of Systems Vital Signs Vitals Vital Signs Date Time Temp Pulse Resp B/P Pulse Ox O2 Delivery O2 Flow Rate FiO2 02/11/17 17:00 83 20 110/64 99 Mechanical Ventilator 02/11/17 16:20 40 02/11/17 16:00 98.5 02/11/17 08:00 2.0 Intake and Output 02/10/17 02/10/17 02/11/17 14:59 22:59 06:59 Intake Total 880 ml 400 ml Balance 880 ml 400 ml Exam sedated and intubated, nad Constitutional: obese Head: normocephalic ENMT: intubated Respiratory: other (course bs B/L, no wheeze) Cardiovascular: other (s1s2), regular rate and rhythm Gastrointestinal: bowel sounds, non-tender, soft Musculoskeletal: other (L chestube) Extremities: edema Results Result Diagram: 02/11/17 1620 02/11/17 1620 Results 24 hrs Laboratory Tests Test 02/10/17 21:03 02/11/17 07:36 02/11/17 09:52 02/11/17 15:28 Bedside Glucose 97 96 Serum HCG, Qualitative NEGATIVE Blood Gas Specimen Source Blood arterial Arterial Blood Date Drawn 02/11/2017 3:00:14 PM Arterial Blood pH (Temp corrected) 7.473 H Arterial Blood pCO2 (Temp correct) 38.5 Arterial Blood pO2 (Temp corrected) 191.9 H Arterial Blood HCO3 27.6 H Arterial Blood Base Excess 3.8 H Arterial Blood Oxygen Saturation 99.2 H Kareem Test N/A Arterial Blood Gas Puncture Site A-Line Arterial Blood Carboxyhemoglobin 0.2 Arterial Blood Methemoglobin 0.2 Blood Gas A-a O2 Differential 338.1 H Oxyhemoglobin Percent 98.8 Total Hemoglobin 11.8 L Blood Gas Temperature 37.0 Blood Gas Respiration Rate 20.0 Blood Gas Actual Respiration Rate 20 Blood Gas Modality VENT - AC FiO2 80.0 Blood Gas Tidal Volume 600.0 Blood Gas Low PEEP Setting 5.0 Blood Gas Notified Whom JLD Blood Gas Notified Time 02/11/2017 3:38:12 PM Test 02/11/17 16:20 White Blood Count 9.1 Red Blood Count 3.66 L Hemoglobin 8.5 L Hematocrit 28.0 L Mean Corpuscular Volume 76.5 L Mean Corpuscular Hemoglobin 23.2 L Mean Corpuscular Hemoglobin Concent 30.4 L Red Cell Distribution Width 18.0 H Platelet Count 357 # Mean Platelet Volume 8.4 Neutrophils % 77.1 H Lymphocytes % 15.4 Monocytes % 5.2 Eosinophils % 1.1 Basophils % 0.3 Nucleated Red Blood Cells % 0.0 Neutrophils # (Manual) 7.0 Lymphocytes # 1.4 Monocytes # 0.5 Eosinophils # 0.1 Basophils # 0.0 Nucleated Red Blood Cells # 0.0 Sodium Level 138 Potassium Level 3.7 Chloride Level 103 Carbon Dioxide Level 29 Anion Gap 10 Blood Urea Nitrogen 16 Creatinine 0.84 Glucose Level 111 Calcium Level 8.3 L Phosphorus Level 2.5 Magnesium Level 1.6 L Medications Medications Current Medications Lorazepam (Ativan) 0.5 mg Q8H PRN PO ANXIETY; Start 01/30/17 at 05:00 Acetaminophen (Tylenol Tab) 650 mg Q6H PRN PO PAIN LEVEL 1-3 OR FEVER Last administered on 01/30/17 12:04; Admin Dose 650 MG; Start 01/30/17 at 05:00 Diagnostic Test (Pha) (Accu-Chek) 1 ea 02 XX Last administered on 02/05/17 02: 00; Admin Dose 1 EA; Start 01/31/17 at 02:00 Alprazolam (Xanax) 1 mg QHS PRN PO ANXIETY; Start 01/30/17 at 05:00 Benazepril HCl (Lotensin) 40 mg DAILY PO Last administered on 01/31/17 08:08; Admin Dose 40 MG; Start 01/30/17 at 09:00; Status Future Hold Docusate Sodium (Colace) 100 mg BID PO Last administered on 02/10/17 21:01; Admin Dose 100 MG; Start 01/30/17 at 09:00 Gabapentin (Neurontin) 100 mg BID PO Last administered on 02/10/17 21:01; Admin Dose 100 MG; Start 01/30/17 at 09:00 Acetaminophen/ Hydrocodone Bitart ([place] (10/325)) 1 tab Q6H PRN PO PAIN Last administered on 02/04/17 02:49; Admin Dose 1 TAB; Start 01/30/17 at 05:00 Miscellaneous Information 1 ea NOTE XX ; Start 01/30/17 at 05:00 Glucose (Glutose) 15 gm Q15M PRN PO DECREASED GLUCOSE; Start 01/30/17 at 05:00 Glucose (Glutose) 22.5 gm Q15M PRN PO DECREASED GLUCOSE; Start 01/30/17 at 05: 00 Dextrose (D50w Syringe) 25 ml Q15M PRN IV DECREASED GLUCOSE; Start 01/30/17 at 05:00 Dextrose (D50w Syringe) 50 ml Q15M PRN IV DECREASED GLUCOSE; Start 01/30/17 at 05:00 Glucagon (Glucagen) 1 mg Q15M PRN IM DECREASED GLUCOSE; Start 01/30/17 at 05:00 Glucose (Glutose) 15 gm Q15M PRN BUCCAL DECREASED GLUCOSE; Start 01/30/17 at 05 :00 Nitroglycerin (Nitroglycerin (Sl Tab) 0.4 Mg) 1 tab [id number] PRN SL CHEST PAIN ; Start 01/30/17 at 05:30 Heparin Sodium (Porcine) (Heparin (5000 Units/0.5 ml)) 5,000 unit Q8 SC Last administered on 02/10/17 14:12; Admin Dose 5,000 UNIT; Start 02/01/17 at 18:00 ; Status Future Hold Metoprolol Tartrate (Lopressor) 12.5 mg BID PRN PO BP>130 systolic; Start 02/02 at 12:00 Colchicine (Colchicine) 0.6 mg DAILY PO Last administered on 02/10/17 08:42; Admin Dose 0.6 MG; Start 02/03/17 at 09:00 Miscellaneous Information (Pending [facility] Order For Wound Care) This patient deleon... PRN PRN XX WOUND CARE; Start 02/02/17 at 17:30 Nystatin (Nystatin Powder) 1 applic BID TOP Last administered on 02/11/17 09:12 ; Admin Dose 1 APPLIC; Start 02/02/17 at 21:00 Hydromorphone HCl (Dilaudid) 1 mg Q6H PRN IV PAIN Last administered on 15:25; Admin Dose 1 MG; Start 02/04/17 at 14:30 Senna (Senokot) 2 tab BID PO Last administered on 02/10/17 21:01; Admin Dose 2 TAB; Start 02/05/17 at 13:00 Furosemide (Lasix) 10 mg DAILY PO Last administered on 02/10/17 08:38; Admin Dose 10 MG; Start 02/05/17 at 14:30 Ferrous Gluconate (Fergon) 325 mg TID PO Last administered on 02/10/17 21:01; Admin Dose 325 MG; Start 02/06/17 at 13:00 Loratadine 10 mg 10 mg DAILY PO ; Start 02/09/17 at 14:00 Cefazolin Sodium/ Dextrose (Ancef 2 Gm/50 ml (Pmx)) 50 ml @ 100 mls/hr Q8H IVPB Last administered on 02/11/17 14:36; Admin Dose 100 MLS/HR; Start 02/11/17 at 12:30; Stop 02/12/17 at 12:29 Acetaminophen/ Hydrocodone Bitart ([place] (5/325)) 1 tab Q6H PRN PO PAIN LEVEL 6 -10; Start 02/11/17 at 12:30 Ondansetron HCl 4 mg 4 mg Q6H PRN IV NAUSEA AND/OR VOMITING; Start 02/11/17 at 12:30 Potassium Chloride/Dextrose/ Sod Cl 1,000 ml @ 100 mls/hr Q10H IV Last administered on 02/11/17 13:36; Admin Dose 100 MLS/HR; Start 02/11/17 at 12:16 Propofol (Diprivan) 100 ml @ 3.672 mls/ hr Q12H IV Last administered on 13:30; Admin Dose 3.672 MLS/HR; Start 02/11/17 at 13:30 Sean Gallego 1, 2017 18:03
[2017-02-11] MEDS ORDERED: MAGNESIUM SULFATE 2 GM/50 ML 50 ML IVPB ONE (20:30)
[2017-02-12] VITALS (89 sets, daily range): BP systolic 91–133; BP diastolic 53–81; PULSE 55–89; RESP 12–37
[2017-02-12] MEDS: PROPOFOL 100 ML IV SCH ×6 (00:06→22:28)
[2017-02-12] MEDS: ACCU-CHEK XX SCH (02:00)
[2017-02-12] MEDS: HYDROmorphONE 1 MG/ML SYG IV PRN ×2 (03:46→10:03)
[2017-02-12] MEDS: CEFAZOLIN 2 GM/50 ML (PMX) 50 ML IVPB SCH (03:49)
[2017-02-12] MEDS: INSULIN ASPART [NOVOLOG] 3 ML PEN SC SCH ×5 (07:35→21:00)
--- NOTE | 2017-02-12 07:44 | PN ---
Date/Time of Note Date/Time of Note DATE: 02/12/17 TIME: 07:43 Assessment/Plan Lines/Catheters IV Catheter Type (from Nrs): A Line [place] in Place (from Nrs): Yes Assessment/Plan Chief Complaint/Hosp Course intubated on propofol drain 100cc bloody fluid labs and cxr pending lasix 40mg IV attempt weaning today. discussed with daughter Problems: Exam/Review of Systems Vital Signs Vitals Vital Signs Date Time Temp Pulse Resp B/P Pulse Ox O2 Delivery O2 Flow Rate FiO2 02/12/17 05:45 68 20 108/59 96 Mechanical Ventilator 02/12/17 05:17 40 02/12/17 04:00 98.6 02/11/17 08:00 2.0 Intake and Output 02/11/17 02/11/17 02/12/17 15:00 23:00 07:00 Intake Total 1507.34 ml 1018.96 ml 1003 ml Output Total 105 ml 845 ml 435 ml Balance 1402.34 ml 173.96 ml 568 ml Results Result Diagram: 02/11/17 1620 02/11/17 1620 ETIENNE ORTIZ MD Feb 12, 2017 07:44
[2017-02-12 07:51] LABS: BASOPHILS % 0.3 % (0.0-2.0); EOSINOPHILS # 0.1 10^3/ul (0.0-0.5); EOSINOPHILS % 1.7 % (0.0-7.0); HEMATOCRIT 28.5 % (37.0-47.0); HEMOGLOBIN 8.5 g/dl (12.0-16.0); LYMPHOCYTES # 1.4 10^3/ul (0.8-2.9); LYMPHOCYTES % 19.4 % (15.0-51.0); MEAN CORPUSCULAR HEMOGLOBIN 22.5 pg (29.0-33.0); MEAN CORPUSCULAR HGB CONC 29.8 g/dl (32.0-37.0); MEAN CORPUSCULAR VOLUME 75.4 fl (82.0-101.0); MEAN PLATELET VOLUME 9.1 fl (7.4-10.4); MONOCYTE # 0.4 10^3/ul (0.3-0.9); MONOCYTES % 6.2 % (0.0-11.0); NEUTROPHILS % 71.6 % (39.0-77.0); PLATELET COUNT 331 10^3/UL (140-415); RED BLOOD COUNT 3.78 10^6/ul (4.20-5.40); RED CELL DISTRIBUTION WIDTH 18.4 % (11.5-14.5); WHITE BLOOD COUNT 7.1 10^3/ul (4.8-10.8)
[2017-02-12] MEDS ORDERED: FUROSEMIDE 40 MG INJ IV ONE (08:00)
--- NOTE | 2017-02-12 08:14 | RADRPT ---
PROCEDURE: XR Chest 1 view. CLINICAL INDICATION: Shortness of breath, pericardial effusion. TECHNIQUE: AP views of the chest were obtained. COMPARISON: February 12, 2017 at 05:38 a.m. FINDINGS: The heart is large. Calcified atherosclerosis is noted in the aorta. Endotracheal tube is stable an d appears in grossly appropriate location. A tube overlying the heart that may reflect a pericardial drain and is stable. Elevated right hemidiaphragm is seen. Central pulmonary vascular congestion a nd interstitial prominence is noted in both lungs. Patchy lower lung infiltrates are stable bilater ally. Osseous structures are intact. IMPRESSION: Stable cardiomegaly with calcified atherosclerosis in the aorta. Stable tube overlying the heart that may reflect a pericardial drain. Stable central pulmonary vascular congestion and mild interstitial prominence in both lungs. Stable bilateral lower lung infiltrates. Elevated right hemidiaphragm. RPTAT: AA .Eugene Lennon MD, Date Time Electronically viewed and signed by .Eugene Lennon MD, on 02/12/2017 08:13 .P/
[2017-02-12 08:28] LABS: CALCIUM 8.1 mg/dl (8.4-10.2); CREATININE 0.9 mg/dl (0.44-1.00); POTASSIUM 4.3 mmol/L (3.5-5.1)
[2017-02-12] MEDS: CALCIUM CARBONATE 500 MG CHEW TAB PO SCH ×3 (08:35→17:40)
--- NOTE | 2017-02-12 08:35 | RADRPT ---
PROCEDURE: XR Chest 1 view. CLINICAL INDICATION: Shortness of breath TECHNIQUE: AP views of the chest was obtained. COMPARISON: Yesterday FINDINGS: The heart is large. Calcified atherosclerosis is noted in the aorta. Endotracheal tube is stable. Tube overlying the heart that likely reflects a pericardial drain is unchanged. Stable central pulm onary vascular congestion and interstitial prominence is noted in both lungs. Retrocardiac opacity is stable. Patchy right mid and lower lung infiltrates are unchanged. Elevated right hemidiaphragm is noted. The osseous structures are unchanged. IMPRESSION: Cardiomegaly with calcified atherosclerosis in the aorta. Stable central pulmonary vascular congestion and mild interstitial prominence in both lungs. Retrocardiac opacity that may reflect left lower lobe atelectasis or infiltrate combined with small pleural effusion. Stable patchy infiltrates in the right mid and lower lung. Elevated right hemidiaphragm. RPTAT: AA .Eugene Lennon MD, MD Date Time Electronically viewed and signed by .Eugene Lennon MD, on 02/12/2017 08:35 .P/
[2017-02-12] MEDS: D5-NS + KCL 20 MEQ 1,000 ML IV SCH ×2 (08:51→18:23)
[2017-02-12] MEDS: LORATADINE 10 MG TAB PO SCH (08:52)
[2017-02-12] MEDS: GABAPENTIN 100 MG CAP PO SCH ×2 (08:53→20:59)
[2017-02-12] MEDS: SENNA TAB PO SCH ×2 (08:53→18:22)
[2017-02-12] MEDS: FUROSEMIDE 20 MG TAB PO SCH (08:53)
[2017-02-12] MEDS: DOCUSATE SODIUM 100 MG CAP PO SCH ×2 (08:53→20:59)
[2017-02-12] MEDS: COLCHICINE 0.6 MG TAB PO SCH (08:53)
[2017-02-12] MEDS: FERROUS GLUCONATE (EC) 325 MG TAB PO SCH ×3 (08:53→20:59)
[2017-02-12] MEDS: NYSTATIN 30 GM POWDER BTL TOP SCH ×2 (08:54→21:28)
--- NOTE | 2017-02-12 09:52 | CONS ---
Date/Time of Note Date/Time of Note DATE: 02/12/17 TIME: 09:50 Assessment/Plan Assessment/Plan Chief Complaint/Hosp Course Pericardial effusion s/p pericardial window 02/11/17 Preserved ejection fraction Respiratory failure, vent -dependent Morbid obesity Obstructive sleep apnea Sinus bradycardia Problems: Additional Assessment/Plan vent weaning pulmonary mgt no change in cardiac meds high risk Consultation Date/Type/Reason Admit Date/Time Jan 30, 2017 at 02:47 Initial Consult Date 02/09/17 Type of Consultation: cv 24 HR Interval Summary Free Text/Dictation remains intubated, awake, no distress, earlier sinus jose luis was noted, lasting few sec, radha of 30 Subjective hx not possible: pt critical status Exam/Review of Systems Vital Signs Vitals Vital Signs Date Time Temp Pulse Resp B/P Pulse Ox O2 Delivery O2 Flow Rate FiO2 02/12/17 05:45 68 20 108/59 96 Mechanical Ventilator 02/12/17 05:17 40 02/12/17 04:00 98.6 02/11/17 08:00 2.0 Intake and Output 02/11/17 02/11/17 02/12/17 15:00 23:00 07:00 Intake Total 1507.34 ml 1018.96 ml 1003 ml Output Total 105 ml 845 ml 435 ml Balance 1402.34 ml 173.96 ml 568 ml Exam Neck: jvd Respiratory: diminished breath sounds Cardiovascular: regular rate and rhythm Gastrointestinal: other (obese) Musculoskeletal: nl extremities to inspection Extremities: normal pulses Results Result Diagram: 02/12/17 0500 02/12/17 0500 Results 24 hrs Laboratory Tests Test 02/11/17 09:52 02/11/17 13:10 02/11/17 15:28 02/11/17 16:20 Serum HCG, Qualitative NEGATIVE Body Fluid Type PERICARDIAL FLUID Body Fluid Volume 80.0 Body Fluid Color RED Body Fluid Appearance BLOODY Body Fluid WBC 3996 Body Fluid RBC (Auto) 1841 Body Fluid Polynuclear WBCs (%) 23.5 Body Fluid Mononuclear Cells % Auto 76.5 Blood Gas Specimen Source Blood arterial Arterial Blood Date Drawn 02/11/2017 3:00:14 PM Arterial Blood pH (Temp corrected) 7.473 H Arterial Blood pCO2 (Temp correct) 38.5 Arterial Blood pO2 (Temp corrected) 191.9 H Arterial Blood HCO3 27.6 H Arterial Blood Base Excess 3.8 H Arterial Blood Oxygen Saturation 99.2 H Kareem Test N/A Arterial Blood Gas Puncture Site A-Line Arterial Blood Carboxyhemoglobin 0.2 Arterial Blood Methemoglobin 0.2 Blood Gas A-a O2 Differential 338.1 H Oxyhemoglobin Percent 98.8 Total Hemoglobin 11.8 L Blood Gas Temperature 37.0 Blood Gas Respiration Rate 20.0 Blood Gas Actual Respiration Rate 20 Blood Gas Modality VENT - AC FiO2 80.0 Blood Gas Tidal Volume 600.0 Blood Gas Low PEEP Setting 5.0 Blood Gas Notified Whom JLD Blood Gas Notified Time 02/11/2017 3:38:12 PM White Blood Count 9.1 Red Blood Count 3.66 L Hemoglobin 8.5 L Hematocrit 28.0 L Mean Corpuscular Volume 76.5 L Mean Corpuscular Hemoglobin 23.2 L Mean Corpuscular Hemoglobin Concent 30.4 L Red Cell Distribution Width 18.0 H Platelet Count 357 # Mean Platelet Volume 8.4 Neutrophils % 77.1 H Lymphocytes % 15.4 Monocytes % 5.2 Eosinophils % 1.1 Basophils % 0.3 Nucleated Red Blood Cells % 0.0 Neutrophils # (Manual) 7.0 Lymphocytes # 1.4 Monocytes # 0.5 Eosinophils # 0.1 Basophils # 0.0 Nucleated Red Blood Cells # 0.0 Sodium Level 138 Potassium Level 3.7 Chloride Level 103 Carbon Dioxide Level 29 Anion Gap 10 Blood Urea Nitrogen 16 Creatinine 0.84 Glucose Level 111 Calcium Level 8.3 L Phosphorus Level 2.5 Magnesium Level 1.6 L Test 02/11/17 17:49 02/11/17 23:47 02/12/17 05:00 02/12/17 08:07 Bedside Glucose 113 104 105 White Blood Count 7.1 # Red Blood Count 3.78 L Hemoglobin 8.5 L Hematocrit 28.5 L Mean Corpuscular Volume 75.4 L Mean Corpuscular Hemoglobin 22.5 L Mean Corpuscular Hemoglobin Concent 29.8 L Red Cell Distribution Width 18.4 H Platelet Count 331 Mean Platelet Volume 9.1 Neutrophils % 71.6 Lymphocytes % 19.4 Monocytes % 6.2 Eosinophils % 1.7 Basophils % 0.3 Nucleated Red Blood Cells % 0.0 Neutrophils # (Manual) 5.1 Lymphocytes # 1.4 Monocytes # 0.4 Eosinophils # 0.1 Basophils # 0.0 Nucleated Red Blood Cells # 0.0 Sodium Level 140 Potassium Level 4.3 Chloride Level 104 Carbon Dioxide Level 28 Anion Gap 12 Blood Urea Nitrogen 15 Creatinine 0.90 Glucose Level 92 Calcium Level 8.1 L Medications Medications Current Medications Lorazepam (Ativan) 0.5 mg Q8H PRN PO ANXIETY; Start 01/30/17 at 05:00 Acetaminophen (Tylenol Tab) 650 mg Q6H PRN PO PAIN LEVEL 1-3 OR FEVER Last administered on 01/30/17 12:04; Admin Dose 650 MG; Start 01/30/17 at 05:00 Diagnostic Test (Pha) (Accu-Chek) 1 ea 02 XX Last administered on 02/05/17 02: 00; Admin Dose 1 EA; Start 01/31/17 at 02:00 Alprazolam (Xanax) 1 mg QHS PRN PO ANXIETY; Start 01/30/17 at 05:00 Benazepril HCl (Lotensin) 40 mg DAILY PO Last administered on 01/31/17 08:08; Admin Dose 40 MG; Start 01/30/17 at 09:00; Status Future Hold Docusate Sodium (Colace) 100 mg BID PO Last administered on 02/10/17 21:01; Admin Dose 100 MG; Start 01/30/17 at 09:00 Gabapentin (Neurontin) 100 mg BID PO Last administered on 02/10/17 21:01; Admin Dose 100 MG; Start 01/30/17 at 09:00 Acetaminophen/ Hydrocodone Bitart ([place] (10/325)) 1 tab Q6H PRN PO PAIN Last administered on 02/04/17 02:49; Admin Dose 1 TAB; Start 01/30/17 at 05:00 Miscellaneous Information 1 ea NOTE XX ; Start 01/30/17 at 05:00 Glucose (Glutose) 15 gm Q15M PRN PO DECREASED GLUCOSE; Start 01/30/17 at 05:00 Glucose (Glutose) 22.5 gm Q15M PRN PO DECREASED GLUCOSE; Start 01/30/17 at 05: 00 Dextrose (D50w Syringe) 25 ml Q15M PRN IV DECREASED GLUCOSE; Start 01/30/17 at 05:00 Dextrose (D50w Syringe) 50 ml Q15M PRN IV DECREASED GLUCOSE; Start 01/30/17 at 05:00 Glucagon (Glucagen) 1 mg Q15M PRN IM DECREASED GLUCOSE; Start 01/30/17 at 05:00 Glucose (Glutose) 15 gm Q15M PRN BUCCAL DECREASED GLUCOSE; Start 01/30/17 at 05 :00 Nitroglycerin (Nitroglycerin (Sl Tab) 0.4 Mg) 1 tab [id number] PRN SL CHEST PAIN ; Start 01/30/17 at 05:30 Heparin Sodium (Porcine) (Heparin (5000 Units/0.5 ml)) 5,000 unit Q8 SC Last administered on 02/10/17 14:12; Admin Dose 5,000 UNIT; Start 02/01/17 at 18:00 ; Status Future Hold Metoprolol Tartrate (Lopressor) 12.5 mg BID PRN PO BP>130 systolic; Start 02/02 at 12:00 Colchicine (Colchicine) 0.6 mg DAILY PO Last administered on 02/10/17 08:42; Admin Dose 0.6 MG; Start 02/03/17 at 09:00 Miscellaneous Information (Pending [facility] Order For Wound Care) This patient deleon... PRN PRN XX WOUND CARE; Start 02/02/17 at 17:30 Nystatin (Nystatin Powder) 1 applic BID TOP Last administered on 02/12/17 08:54 ; Admin Dose 1 APPLIC; Start 02/02/17 at 21:00 Hydromorphone HCl (Dilaudid) 1 mg Q6H PRN IV PAIN Last administered on 03:46; Admin Dose 1 MG; Start 02/04/17 at 14:30 Senna (Senokot) 2 tab BID PO Last administered on 02/10/17 21:01; Admin Dose 2 TAB; Start 02/05/17 at 13:00 Furosemide (Lasix) 10 mg DAILY PO Last administered on 02/10/17 08:38; Admin Dose 10 MG; Start 02/05/17 at 14:30 Ferrous Gluconate (Fergon) 325 mg TID PO Last administered on 02/10/17 21:01; Admin Dose 325 MG; Start 02/06/17 at 13:00 Loratadine 10 mg 10 mg DAILY PO ; Start 02/09/17 at 14:00 Cefazolin Sodium/ Dextrose (Ancef 2 Gm/50 ml (Pmx)) 50 ml @ 100 mls/hr Q8H IVPB Last administered on 02/12/17 03:49; Admin Dose 100 MLS/HR; Start 02/11/17 at 12:30; Stop 02/12/17 at 12:29 Acetaminophen/ Hydrocodone Bitart ([place] (5/325)) 1 tab Q6H PRN PO PAIN LEVEL 6 -10; Start 02/11/17 at 12:30 Ondansetron HCl 4 mg 4 mg Q6H PRN IV NAUSEA AND/OR VOMITING; Start 02/11/17 at 12:30 Potassium Chloride/Dextrose/ Sod Cl 1,000 ml @ 100 mls/hr Q10H IV Last administered on 02/12/17 08:51; Admin Dose 100 MLS/HR; Start 02/11/17 at 12:16 Propofol (Diprivan) 100 ml @ 3.672 mls/ hr Q12H IV Last administered on 08:52; Admin Dose 22.032 MLS/HR; Start 02/11/17 at 13:30 Hydromorphone HCl (Dilaudid) 1 mg Q4H PRN IV PAIN; Start 02/11/17 at 20:30 FATEMEH MENDOZA MD Feb 12, 2017 09:52
[2017-02-12 12:06] LABS: AADO2 Arterial 136.5 mmHg (7.0-24.0); Arterial Base Excess 6.7 mmol/L (-3.0-3); Arterial COHb 0.1 % (0.0-3.0); Arterial Fraction of Oxyhgb 96.9 % (93.0-99.0); Arterial HCO3 30.9 mmol/L (22.0-26.0); Arterial MetHb 0.4 % (0.0-1.5); Arterial Total Hemglobin 11.1 g/dl (12.0-18.0); MODE VENT - SIMV
[2017-02-12] MEDS: METHYLPREDNISOLONE 40 MG INJ IV SCH ×2 (13:38→20:58)
--- NOTE | 2017-02-12 13:41 | PN ---
Date/Time of Note Date/Time of Note DATE: 02/12/17 TIME: 13:37 Assessment/Plan VTE Prophylaxis VTE Prophylaxis Intervention: SCD's Lines/Catheters IV Catheter Type (from Nrs): Peripheral IV Urinary Cath still in place: Yes Reason Cath still needed: other (indicate) (monitor I&O) Assessment/Plan Chief Complaint/Hosp Course Assessment and plan 1. Chest pain. troponins negative. Echocardiogram did show previous moderate -sized pericardial effusion. Suspect etiology for chest pain. Cardiology following. Continue diuresis. Status post left anterior thoracotomy and pericardiocentesis. Continue postop care. Continue with analgesics. 2. Moderate pericardial effusion. . Status post left anterior thoracotomy and pericardiocentesis 3. Acute respiratory failure likely secondary to #2. Continue diuresis. Of note patient does have history of pulmonary embolism was not a candidate for CT angiogram due to weight. CT scan was also ordered but patient could not tolerate procedure due to orthopnea. Bilateral lower extremity Doppler was negative for DVT. Continue with police officer recommendation. Continue vent liberation 4. Essential hypertension. On antihypertensives. To be adjusted as needed. 5. History of depression. Continue antidepressants. stable 6. Type 2 diabetes. On insulin regimen. Metformin on hold due to [place] I. stable 7. Acute kidney injury. Medications to be renally dosed. appears to be slowly improving. 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 Morbid obesity. Morbid obesity. Weight reduction was advised. Disposition and plan: Patient status post left thoracotomy and pericardiocentesis. Continue postop care. Continue with vent liberation. Discussed plan of care with Dr. Hernandez Critical CARE time: 30 minutes Problems: Subjective 24 Hr Interval Summary Free Text/Dictation Patient remains on mechanical ventilation. Is alert although on light sedation. No signs or symptoms of distress at this time. Exam/Review of Systems Vital Signs Vitals Vital Signs Date Time Temp Pulse Resp B/P Pulse Ox O2 Delivery O2 Flow Rate FiO2 02/12/17 12:00 85 02/12/17 05:45 20 108/59 96 Mechanical Ventilator 02/12/17 05:17 40 02/12/17 04:00 98.6 02/11/17 08:00 2.0 Intake and Output 02/11/17 02/11/17 02/12/17 14:59 22:59 06:59 Intake Total 1507.34 ml 883.96 ml 1138 ml Output Total 105 ml 785 ml 495 ml Balance 1402.34 ml 98.96 ml 643 ml Exam Constitutional: alert, obese, oriented Head: normocephalic Eyes: nl conjunctiva Respiratory: diminished breath sounds, other (Intubated) Cardiovascular: other (Diminished heart sounds) Musculoskeletal: nl extremities to inspection Extremities: normal pulses 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, nl mental status Skin: other (Chest tube noted on left chest wall noted with sanguinous drainage ) Results Result Diagram: 02/12/17 0500 02/12/17 0500 Results 24 hrs Laboratory Tests Test 02/11/17 15:28 02/11/17 16:20 02/11/17 17:49 02/11/17 23:47 Blood Gas Specimen Source Blood arterial Arterial Blood Date Drawn 02/11/2017 3:00:14 PM Arterial Blood pH (Temp corrected) 7.473 H Arterial Blood pCO2 (Temp correct) 38.5 Arterial Blood pO2 (Temp corrected) 191.9 H Arterial Blood HCO3 27.6 H Arterial Blood Base Excess 3.8 H Arterial Blood Oxygen Saturation 99.2 H Kareem Test N/A Arterial Blood Gas Puncture Site A-Line Arterial Blood Carboxyhemoglobin 0.2 Arterial Blood Methemoglobin 0.2 Blood Gas A-a O2 Differential 338.1 H Oxyhemoglobin Percent 98.8 Total Hemoglobin 11.8 L Blood Gas Temperature 37.0 Blood Gas Respiration Rate 20.0 Blood Gas Actual Respiration Rate 20 Blood Gas Modality VENT - AC FiO2 80.0 Blood Gas Tidal Volume 600.0 Blood Gas Low PEEP Setting 5.0 Blood Gas Notified Whom JLD Blood Gas Notified Time 02/11/2017 3:38:12 PM White Blood Count 9.1 Red Blood Count 3.66 L Hemoglobin 8.5 L Hematocrit 28.0 L Mean Corpuscular Volume 76.5 L Mean Corpuscular Hemoglobin 23.2 L Mean Corpuscular Hemoglobin Concent 30.4 L Red Cell Distribution Width 18.0 H Platelet Count 357 # Mean Platelet Volume 8.4 Neutrophils % 77.1 H Lymphocytes % 15.4 Monocytes % 5.2 Eosinophils % 1.1 Basophils % 0.3 Nucleated Red Blood Cells % 0.0 Neutrophils # (Manual) 7.0 Lymphocytes # 1.4 Monocytes # 0.5 Eosinophils # 0.1 Basophils # 0.0 Nucleated Red Blood Cells # 0.0 Sodium Level 138 Potassium Level 3.7 Chloride Level 103 Carbon Dioxide Level 29 Anion Gap 10 Blood Urea Nitrogen 16 Creatinine 0.84 Glucose Level 111 Calcium Level 8.3 L Phosphorus Level 2.5 Magnesium Level 1.6 L Bedside Glucose 113 104 Test 02/12/17 05:00 02/12/17 08:07 02/12/17 11:50 02/12/17 12:00 White Blood Count 7.1 # Red Blood Count 3.78 L Hemoglobin 8.5 L Hematocrit 28.5 L Mean Corpuscular Volume 75.4 L Mean Corpuscular Hemoglobin 22.5 L Mean Corpuscular Hemoglobin Concent 29.8 L Red Cell Distribution Width 18.4 H Platelet Count 331 Mean Platelet Volume 9.1 Neutrophils % 71.6 Lymphocytes % 19.4 Monocytes % 6.2 Eosinophils % 1.7 Basophils % 0.3 Nucleated Red Blood Cells % 0.0 Neutrophils # (Manual) 5.1 Lymphocytes # 1.4 Monocytes # 0.4 Eosinophils # 0.1 Basophils # 0.0 Nucleated Red Blood Cells # 0.0 Sodium Level 140 Potassium Level 4.3 Chloride Level 104 Carbon Dioxide Level 28 Anion Gap 12 Blood Urea Nitrogen 15 Creatinine 0.90 Glucose Level 92 Calcium Level 8.1 L Bedside Glucose 105 113 Blood Gas Specimen Source Blood arterial Arterial Blood Date Drawn 02/12/2017 11:50:47 AM Arterial Blood pH (Temp corrected) 7.477 H Arterial Blood pCO2 (Temp correct) 42.8 Arterial Blood pO2 (Temp corrected) 99.5 Arterial Blood HCO3 30.9 H Arterial Blood Base Excess 6.7 H Arterial Blood Oxygen Saturation 97.4 Kareem Test N/A Arterial Blood Gas Puncture Site A-Line Arterial Blood Carboxyhemoglobin 0.1 Arterial Blood Methemoglobin 0.4 Blood Gas A-a O2 Differential 136.5 H Oxyhemoglobin Percent 96.9 Total Hemoglobin 11.1 L Blood Gas Temperature 37.0 Blood Gas Respiration Rate 8.0 Blood Gas Actual Respiration Rate 28 Blood Gas Modality VENT - SIMV FiO2 40.0 Blood Gas Tidal Volume 600.0 Blood Gas Low PEEP Setting 5.0 Blood Gas Notified Whom CW Blood Gas Notified Time 02/12/2017 12:06:42 PM Medications Medications Current Medications Lorazepam (Ativan) 0.5 mg Q8H PRN PO ANXIETY; Start 01/30/17 at 05:00 Acetaminophen (Tylenol Tab) 650 mg Q6H PRN PO PAIN LEVEL 1-3 OR FEVER Last administered on 01/30/17 12:04; Admin Dose 650 MG; Start 01/30/17 at 05:00 Diagnostic Test (Pha) (Accu-Chek) 1 ea 02 XX Last administered on 02/05/17 02: 00; Admin Dose 1 EA; Start 01/31/17 at 02:00 Alprazolam (Xanax) 1 mg QHS PRN PO ANXIETY; Start 01/30/17 at 05:00 Benazepril HCl (Lotensin) 40 mg DAILY PO Last administered on 01/31/17 08:08; Admin Dose 40 MG; Start 01/30/17 at 09:00; Status Future Hold Docusate Sodium (Colace) 100 mg BID PO Last administered on 02/10/17 21:01; Admin Dose 100 MG; Start 01/30/17 at 09:00 Gabapentin (Neurontin) 100 mg BID PO Last administered on 02/10/17 21:01; Admin Dose 100 MG; Start 01/30/17 at 09:00 Acetaminophen/ Hydrocodone Bitart ([place] (10/325)) 1 tab Q6H PRN PO PAIN Last administered on 02/04/17 02:49; Admin Dose 1 TAB; Start 01/30/17 at 05:00 Miscellaneous Information 1 ea NOTE XX ; Start 01/30/17 at 05:00 Glucose (Glutose) 15 gm Q15M PRN PO DECREASED GLUCOSE; Start 01/30/17 at 05:00 Glucose (Glutose) 22.5 gm Q15M PRN PO DECREASED GLUCOSE; Start 01/30/17 at 05: 00 Dextrose (D50w Syringe) 25 ml Q15M PRN IV DECREASED GLUCOSE; Start 01/30/17 at 05:00 Dextrose (D50w Syringe) 50 ml Q15M PRN IV DECREASED GLUCOSE; Start 01/30/17 at 05:00 Glucagon (Glucagen) 1 mg Q15M PRN IM DECREASED GLUCOSE; Start 01/30/17 at 05:00 Glucose (Glutose) 15 gm Q15M PRN BUCCAL DECREASED GLUCOSE; Start 01/30/17 at 05 :00 Nitroglycerin (Nitroglycerin (Sl Tab) 0.4 Mg) 1 tab [id number] PRN SL CHEST PAIN ; Start 01/30/17 at 05:30 Heparin Sodium (Porcine) (Heparin (5000 Units/0.5 ml)) 5,000 unit Q8 SC Last administered on 02/10/17 14:12; Admin Dose 5,000 UNIT; Start 02/01/17 at 18:00 ; Status Future Hold Metoprolol Tartrate (Lopressor) 12.5 mg BID PRN PO BP>130 systolic; Start 02/02 at 12:00 Colchicine (Colchicine) 0.6 mg DAILY PO Last administered on 02/10/17 08:42; Admin Dose 0.6 MG; Start 02/03/17 at 09:00 Miscellaneous Information (Pending [facility] Order For Wound Care) This patient deleon... PRN PRN XX WOUND CARE; Start 02/02/17 at 17:30 Nystatin (Nystatin Powder) 1 applic BID TOP Last administered on 02/12/17 08:54 ; Admin Dose 1 APPLIC; Start 02/02/17 at 21:00 Hydromorphone HCl (Dilaudid) 1 mg Q6H PRN IV PAIN Last administered on 03:46; Admin Dose 1 MG; Start 02/04/17 at 14:30 Senna (Senokot) 2 tab BID PO Last administered on 02/10/17 21:01; Admin Dose 2 TAB; Start 02/05/17 at 13:00 Furosemide (Lasix) 10 mg DAILY PO Last administered on 02/10/17 08:38; Admin Dose 10 MG; Start 02/05/17 at 14:30 Ferrous Gluconate (Fergon) 325 mg TID PO Last administered on 02/10/17 21:01; Admin Dose 325 MG; Start 02/06/17 at 13:00 Loratadine (Claritin) 10 mg DAILY PO ; Start 02/09/17 at 14:00 Acetaminophen/ Hydrocodone Bitart ([place] (5/325)) 1 tab Q6H PRN PO PAIN LEVEL 6 -10; Start 02/11/17 at 12:30 Ondansetron HCl 4 mg 4 mg Q6H PRN IV NAUSEA AND/OR VOMITING; Start 02/11/17 at 12:30 Potassium Chloride/Dextrose/ Sod Cl 1,000 ml @ 100 mls/hr Q10H IV Last administered on 02/12/17 08:51; Admin Dose 100 MLS/HR; Start 02/11/17 at 12:16 Propofol (Diprivan) 100 ml @ 3.672 mls/ hr Q12H IV Last administered on 08:52; Admin Dose 22.032 MLS/HR; Start 02/11/17 at 13:30 Hydromorphone HCl (Dilaudid) 1 mg Q4H PRN IV PAIN Last administered on 10:03; Admin Dose 1 MG; Start 02/11/17 at 20:30 Methylprednisolone Sodium Succinate (Solu-Medrol) 40 mg Q12 IV ; Start 02/12/17 at 13:30 YAQUELIN RITTER Feb 12, 2017 13:41
--- NOTE | 2017-02-12 19:21 | CONS ---
Date/Time of Note Date/Time of Note DATE: 02/12/17 TIME: 19:20 Assessment/Plan Assessment/Plan Additional Assessment/Plan 46 yo Female with 1. Chest pain. 2. Moderate pericardial effusion S/p Pericardiocentesis 3. Hypoxia 4. Essential hypertension 5. Depression. 6. Type 2 diabetes mellitus 7. Acute kidney injury 8. Microcytic, hypochromic anemia 9. Morbid Obesity 10. Hyperkalemia- Resolved 11. Respiratory failure on Vent Repeat renal function studies Non oliguric Previous JANIS resolved Will cont to follow in ICU Consultation Date/Type/Reason Admit Date/Time Jan 30, 2017 at 02:47 Initial Consult Date 02/01/17 Type of Consultation: Renal 24 HR Interval Summary Subjective hx not possible: pt critical status Exam/Review of Systems Vital Signs Vitals Vital Signs Date Time Temp Pulse Resp B/P Pulse Ox O2 Delivery O2 Flow Rate FiO2 02/12/17 19:00 65 20 106/60 96 02/12/17 18:45 Mechanical Ventilator 02/12/17 17:10 40 02/12/17 16:00 97.8 02/11/17 08:00 2.0 Intake and Output 02/11/17 02/11/17 02/12/17 14:59 22:59 06:59 Intake Total 1507.34 ml 883.96 ml 1138 ml Output Total 105 ml 785 ml 495 ml Balance 1402.34 ml 98.96 ml 643 ml Exam ENMT: intubated Respiratory: crackles/rales Extremities: pitting pedal edema Neurological: other (sedated) Results Result Diagram: 02/12/17 0500 02/12/17 0500 Results 24 hrs Laboratory Tests Test 02/11/17 23:47 02/12/17 05:00 02/12/17 08:07 02/12/17 11:50 Bedside Glucose 104 105 113 White Blood Count 7.1 # Red Blood Count 3.78 L Hemoglobin 8.5 L Hematocrit 28.5 L Mean Corpuscular Volume 75.4 L Mean Corpuscular Hemoglobin 22.5 L Mean Corpuscular Hemoglobin Concent 29.8 L Red Cell Distribution Width 18.4 H Platelet Count 331 Mean Platelet Volume 9.1 Neutrophils % 71.6 Lymphocytes % 19.4 Monocytes % 6.2 Eosinophils % 1.7 Basophils % 0.3 Nucleated Red Blood Cells % 0.0 Neutrophils # (Manual) 5.1 Lymphocytes # 1.4 Monocytes # 0.4 Eosinophils # 0.1 Basophils # 0.0 Nucleated Red Blood Cells # 0.0 Sodium Level 140 Potassium Level 4.3 Chloride Level 104 Carbon Dioxide Level 28 Anion Gap 12 Blood Urea Nitrogen 15 Creatinine 0.90 Glucose Level 92 Calcium Level 8.1 L Test 02/12/17 12:00 02/12/17 16:05 Blood Gas Specimen Source Blood arterial Arterial Blood Date Drawn 02/12/2017 11:50:47 AM Arterial Blood pH (Temp corrected) 7.477 H Arterial Blood pCO2 (Temp correct) 42.8 Arterial Blood pO2 (Temp corrected) 99.5 Arterial Blood HCO3 30.9 H Arterial Blood Base Excess 6.7 H Arterial Blood Oxygen Saturation 97.4 Kareem Test N/A Arterial Blood Gas Puncture Site A-Line Arterial Blood Carboxyhemoglobin 0.1 Arterial Blood Methemoglobin 0.4 Blood Gas A-a O2 Differential 136.5 H Oxyhemoglobin Percent 96.9 Total Hemoglobin 11.1 L Blood Gas Temperature 37.0 Blood Gas Respiration Rate 8.0 Blood Gas Actual Respiration Rate 28 Blood Gas Modality VENT - SIMV FiO2 40.0 Blood Gas Tidal Volume 600.0 Blood Gas Low PEEP Setting 5.0 Blood Gas Notified Whom CW Blood Gas Notified Time 02/12/2017 12:06:42 PM Bedside Glucose 132 Medications Medications Current Medications Lorazepam (Ativan) 0.5 mg Q8H PRN PO ANXIETY; Start 01/30/17 at 05:00 Acetaminophen (Tylenol Tab) 650 mg Q6H PRN PO PAIN LEVEL 1-3 OR FEVER Last administered on 01/30/17 12:04; Admin Dose 650 MG; Start 01/30/17 at 05:00 Diagnostic Test (Pha) (Accu-Chek) 1 ea 02 XX Last administered on 02/05/17 02: 00; Admin Dose 1 EA; Start 01/31/17 at 02:00 Alprazolam (Xanax) 1 mg QHS PRN PO ANXIETY; Start 01/30/17 at 05:00 Benazepril HCl (Lotensin) 40 mg DAILY PO Last administered on 01/31/17 08:08; Admin Dose 40 MG; Start 01/30/17 at 09:00; Status Future Hold Docusate Sodium (Colace) 100 mg BID PO Last administered on 02/10/17 21:01; Admin Dose 100 MG; Start 01/30/17 at 09:00 Gabapentin (Neurontin) 100 mg BID PO Last administered on 02/10/17 21:01; Admin Dose 100 MG; Start 01/30/17 at 09:00 Acetaminophen/ Hydrocodone Bitart ([place] (10/325)) 1 tab Q6H PRN PO PAIN Last administered on 02/04/17 02:49; Admin Dose 1 TAB; Start 01/30/17 at 05:00 Miscellaneous Information 1 ea NOTE XX ; Start 01/30/17 at 05:00 Glucose (Glutose) 15 gm Q15M PRN PO DECREASED GLUCOSE; Start 01/30/17 at 05:00 Glucose (Glutose) 22.5 gm Q15M PRN PO DECREASED GLUCOSE; Start 01/30/17 at 05: 00 Dextrose (D50w Syringe) 25 ml Q15M PRN IV DECREASED GLUCOSE; Start 01/30/17 at 05:00 Dextrose (D50w Syringe) 50 ml Q15M PRN IV DECREASED GLUCOSE; Start 01/30/17 at 05:00 Glucagon (Glucagen) 1 mg Q15M PRN IM DECREASED GLUCOSE; Start 01/30/17 at 05:00 Glucose (Glutose) 15 gm Q15M PRN BUCCAL DECREASED GLUCOSE; Start 01/30/17 at 05 :00 Nitroglycerin (Nitroglycerin (Sl Tab) 0.4 Mg) 1 tab [id number] PRN SL CHEST PAIN ; Start 01/30/17 at 05:30 Heparin Sodium (Porcine) (Heparin (5000 Units/0.5 ml)) 5,000 unit Q8 SC Last administered on 02/10/17 14:12; Admin Dose 5,000 UNIT; Start 02/01/17 at 18:00 ; Status Future Hold Metoprolol Tartrate (Lopressor) 12.5 mg BID PRN PO BP>130 systolic; Start 02/02 at 12:00 Colchicine (Colchicine) 0.6 mg DAILY PO Last administered on 02/10/17 08:42; Admin Dose 0.6 MG; Start 02/03/17 at 09:00 Miscellaneous Information (Pending [facility] Order For Wound Care) This patient deleon... PRN PRN XX WOUND CARE; Start 02/02/17 at 17:30 Nystatin (Nystatin Powder) 1 applic BID TOP Last administered on 02/12/17 08:54 ; Admin Dose 1 APPLIC; Start 02/02/17 at 21:00 Hydromorphone HCl (Dilaudid) 1 mg Q6H PRN IV PAIN Last administered on 03:46; Admin Dose 1 MG; Start 02/04/17 at 14:30 Senna (Senokot) 2 tab BID PO Last administered on 02/12/17 18:22; Admin Dose 2 TAB; Start 02/05/17 at 13:00 Furosemide (Lasix) 10 mg DAILY PO Last administered on 02/10/17 08:38; Admin Dose 10 MG; Start 02/05/17 at 14:30 Ferrous Gluconate (Fergon) 325 mg TID PO Last administered on 02/10/17 21:01; Admin Dose 325 MG; Start 02/06/17 at 13:00 Loratadine (Claritin) 10 mg DAILY PO ; Start 02/09/17 at 14:00 Acetaminophen/ Hydrocodone Bitart ([place] (5/325)) 1 tab Q6H PRN PO PAIN LEVEL 6 -10; Start 02/11/17 at 12:30 Ondansetron HCl 4 mg 4 mg Q6H PRN IV NAUSEA AND/OR VOMITING; Start 02/11/17 at 12:30 Potassium Chloride/Dextrose/ Sod Cl 1,000 ml @ 100 mls/hr Q10H IV Last administered on 02/12/17 18:23; Admin Dose 100 MLS/HR; Start 02/11/17 at 12:16 Propofol (Diprivan) 100 ml @ 3.672 mls/ hr Q12H IV Last administered on 18:47; Admin Dose 22.032 MLS/HR; Start 02/11/17 at 13:30 Hydromorphone HCl (Dilaudid) 1 mg Q4H PRN IV PAIN Last administered on 10:03; Admin Dose 1 MG; Start 02/11/17 at 20:30 Methylprednisolone Sodium Succinate (Solu-Medrol) 40 mg Q12 IV Last administered on 02/12/17 13:38; Admin Dose 40 MG; Start 02/12/17 at 13:30 ALBERT MARION MD Feb 12, 2017 19:21
[2017-02-13] VITALS (87 sets, daily range): BP systolic 122–149; BP diastolic 65–80; PULSE 53–72; RESP 12–23
[2017-02-13] MEDS: D5-NS + KCL 20 MEQ 1,000 ML IV SCH ×3 (00:02→22:38)
[2017-02-13] MEDS: PROPOFOL 100 ML IV SCH ×11 (01:09→23:18)
[2017-02-13] MEDS: ACCU-CHEK XX SCH (02:00)
--- NOTE | 2017-02-13 07:35 | CONS ---
Date/Time of Note Date/Time of Note DATE: 02/13/17 TIME: 07:34 Assessment/Plan Assessment/Plan Chief Complaint/Hosp Course Pericardial effusion s/p pericardial window 02/11/17 Preserved ejection fraction Respiratory failure, vent -dependent Supermorbid obesity Obstructive sleep apnea Sinus bradycardia Problems: Additional Assessment/Plan appreciate cardiothoracic surgical efforts vent mgt no change in cardiac meds no new sinus bradycardia events in last 12 hours Consultation Date/Type/Reason Admit Date/Time Jan 30, 2017 at 02:47 Initial Consult Date 02/09/17 Type of Consultation: cv 24 HR Interval Summary Free Text/Dictation intubated Subjective hx not possible: pt critical status Exam/Review of Systems Vital Signs Vitals Vital Signs Date Time Temp Pulse Resp B/P Pulse Ox O2 Delivery O2 Flow Rate FiO2 02/13/17 06:30 59 20 145/75 95 Mechanical Ventilator 02/13/17 05:10 50 02/13/17 04:00 99.0 02/11/17 08:00 2.0 Intake and Output 02/12/17 02/12/17 02/13/17 15:00 23:00 07:00 Intake Total 904 ml 976 ml 854 ml Output Total 3220 ml 670 ml Balance 904 ml -2244 ml 184 ml Exam Head: atraumatic, normocephalic Neck: supple Respiratory: diminished breath sounds Cardiovascular: regular rate and rhythm Gastrointestinal: other (obese) Musculoskeletal: nl extremities to inspection Extremities: normal pulses Neurological: [employer] II-XII intact Results Result Diagram: 02/12/17 0500 02/12/17 0500 Results 24 hrs Laboratory Tests Test 02/12/17 08:07 02/12/17 11:50 02/12/17 12:00 02/12/17 16:05 Bedside Glucose 105 113 132 Blood Gas Specimen Source Blood arterial Arterial Blood Date Drawn 02/12/2017 11:50:47 AM Arterial Blood pH (Temp corrected) 7.477 H Arterial Blood pCO2 (Temp correct) 42.8 Arterial Blood pO2 (Temp corrected) 99.5 Arterial Blood HCO3 30.9 H Arterial Blood Base Excess 6.7 H Arterial Blood Oxygen Saturation 97.4 Kareem Test N/A Arterial Blood Gas Puncture Site A-Line Arterial Blood Carboxyhemoglobin 0.1 Arterial Blood Methemoglobin 0.4 Blood Gas A-a O2 Differential 136.5 H Oxyhemoglobin Percent 96.9 Total Hemoglobin 11.1 L Blood Gas Temperature 37.0 Blood Gas Respiration Rate 8.0 Blood Gas Actual Respiration Rate 28 Blood Gas Modality VENT - SIMV FiO2 40.0 Blood Gas Tidal Volume 600.0 Blood Gas Low PEEP Setting 5.0 Blood Gas Notified Whom CW Blood Gas Notified Time 02/12/2017 12:06:42 PM Test 02/12/17 20:50 02/13/17 02:11 Bedside Glucose 171 167 Medications Medications Current Medications Lorazepam (Ativan) 0.5 mg Q8H PRN PO ANXIETY; Start 01/30/17 at 05:00 Acetaminophen (Tylenol Tab) 650 mg Q6H PRN PO PAIN LEVEL 1-3 OR FEVER Last administered on 01/30/17 12:04; Admin Dose 650 MG; Start 01/30/17 at 05:00 Diagnostic Test (Pha) (Accu-Chek) 1 ea 02 XX Last administered on 02/05/17 02: 00; Admin Dose 1 EA; Start 01/31/17 at 02:00 Alprazolam (Xanax) 1 mg QHS PRN PO ANXIETY; Start 01/30/17 at 05:00 Benazepril HCl (Lotensin) 40 mg DAILY PO Last administered on 01/31/17 08:08; Admin Dose 40 MG; Start 01/30/17 at 09:00; Status Future Hold Docusate Sodium (Colace) 100 mg BID PO Last administered on 02/10/17 21:01; Admin Dose 100 MG; Start 01/30/17 at 09:00 Gabapentin (Neurontin) 100 mg BID PO Last administered on 02/10/17 21:01; Admin Dose 100 MG; Start 01/30/17 at 09:00 Acetaminophen/ Hydrocodone Bitart ([place] (10/325)) 1 tab Q6H PRN PO PAIN Last administered on 02/04/17 02:49; Admin Dose 1 TAB; Start 01/30/17 at 05:00 Miscellaneous Information 1 ea NOTE XX ; Start 01/30/17 at 05:00 Glucose (Glutose) 15 gm Q15M PRN PO DECREASED GLUCOSE; Start 01/30/17 at 05:00 Glucose (Glutose) 22.5 gm Q15M PRN PO DECREASED GLUCOSE; Start 01/30/17 at 05: 00 Dextrose (D50w Syringe) 25 ml Q15M PRN IV DECREASED GLUCOSE; Start 01/30/17 at 05:00 Dextrose (D50w Syringe) 50 ml Q15M PRN IV DECREASED GLUCOSE; Start 01/30/17 at 05:00 Glucagon (Glucagen) 1 mg Q15M PRN IM DECREASED GLUCOSE; Start 01/30/17 at 05:00 Glucose (Glutose) 15 gm Q15M PRN BUCCAL DECREASED GLUCOSE; Start 01/30/17 at 05 :00 Nitroglycerin (Nitroglycerin (Sl Tab) 0.4 Mg) 1 tab [id number] PRN SL CHEST PAIN ; Start 01/30/17 at 05:30 Heparin Sodium (Porcine) (Heparin (5000 Units/0.5 ml)) 5,000 unit Q8 SC Last administered on 02/10/17 14:12; Admin Dose 5,000 UNIT; Start 02/01/17 at 18:00 ; Status Future Hold Metoprolol Tartrate (Lopressor) 12.5 mg BID PRN PO BP>130 systolic; Start 02/02 at 12:00 Colchicine (Colchicine) 0.6 mg DAILY PO Last administered on 02/10/17 08:42; Admin Dose 0.6 MG; Start 02/03/17 at 09:00 Miscellaneous Information (Pending [facility] Order For Wound Care) This patient deleon... PRN PRN XX WOUND CARE; Start 02/02/17 at 17:30 Nystatin (Nystatin Powder) 1 applic BID TOP Last administered on 02/12/17 21:28 ; Admin Dose 1 APPLIC; Start 02/02/17 at 21:00 Hydromorphone HCl (Dilaudid) 1 mg Q6H PRN IV PAIN Last administered on 03:46; Admin Dose 1 MG; Start 02/04/17 at 14:30 Senna (Senokot) 2 tab BID PO Last administered on 02/12/17 18:22; Admin Dose 2 TAB; Start 02/05/17 at 13:00 Furosemide (Lasix) 10 mg DAILY PO Last administered on 02/10/17 08:38; Admin Dose 10 MG; Start 02/05/17 at 14:30 Ferrous Gluconate (Fergon) 325 mg TID PO Last administered on 02/10/17 21:01; Admin Dose 325 MG; Start 02/06/17 at 13:00 Loratadine (Claritin) 10 mg DAILY PO ; Start 02/09/17 at 14:00 Acetaminophen/ Hydrocodone Bitart ([place] (5/325)) 1 tab Q6H PRN PO PAIN LEVEL 6 -10; Start 02/11/17 at 12:30 Ondansetron HCl 4 mg 4 mg Q6H PRN IV NAUSEA AND/OR VOMITING; Start 02/11/17 at 12:30 Potassium Chloride/Dextrose/ Sod Cl 1,000 ml @ 100 mls/hr Q10H IV Last administered on 02/13/17 00:02; Admin Dose 100 MLS/HR; Start 02/11/17 at 12:16 Propofol (Diprivan) 100 ml @ 3.672 mls/ hr Q12H IV Last administered on 06:31; Admin Dose 35 MLS/HR; Start 02/11/17 at 13:30 Hydromorphone HCl (Dilaudid) 1 mg Q4H PRN IV PAIN Last administered on 10:03; Admin Dose 1 MG; Start 02/11/17 at 20:30 Methylprednisolone Sodium Succinate (Solu-Medrol) 40 mg Q12 IV Last administered on 02/12/17 20:58; Admin Dose 40 MG; Start 02/12/17 at 13:30 FATEMEH MENDOZA MD Feb 13, 2017 07:35
[2017-02-13] MEDS: DOCUSATE SODIUM 100 MG CAP PO SCH (08:05)
[2017-02-13] MEDS: LORATADINE 10 MG TAB PO SCH (08:05)
[2017-02-13] MEDS: CALCIUM CARBONATE 500 MG CHEW TAB PO SCH ×3 (08:05→17:24)
[2017-02-13] MEDS: COLCHICINE 0.6 MG TAB PO SCH (08:06)
[2017-02-13] MEDS: FERROUS GLUCONATE (EC) 325 MG TAB PO SCH ×2 (08:06→12:59)
[2017-02-13] MEDS: GABAPENTIN 100 MG CAP PO SCH (08:06)
[2017-02-13] MEDS: SENNA TAB PO SCH (08:06)
[2017-02-13] MEDS: NYSTATIN 30 GM POWDER BTL TOP SCH ×2 (08:07→21:47)
[2017-02-13] MEDS: FUROSEMIDE 20 MG TAB PO SCH (08:07)
[2017-02-13] MEDS: METHYLPREDNISOLONE 40 MG INJ IV SCH ×2 (08:33→21:46)
[2017-02-13] MEDS: HYDROmorphONE 1 MG/ML SYG IV PRN (09:47)
[2017-02-13] MEDS ORDERED: LIDOCAINE 1% (MPF) 5 ML VIAL SC ONE (11:00)
[2017-02-13] MEDS: INSULIN ASPART [NOVOLOG] 3 ML PEN SC SCH ×3 (11:00→21:00)
--- NOTE | 2017-02-13 11:35 | CONS ---
Date/Time of Note Date/Time of Note DATE: 02/13/17 TIME: 11:32 Consult Date/Type/Reason Admit Date/Time Jan 30, 2017 at 02:47 Initial Consult Date 02/01/17 Type of Consultation: Pulmonary Subjective Had no evidence of an leak when endotracheal tube cuff was deflated. In absence of air leak, extubation was held secondary to risk of airway closure. Patient commenced on steroids for possible laryngeal edema. Stable overnight. Remains hemodynamically stable this morning pending PICC line placement. Objective Vital Signs Date Time Temp Pulse Resp B/P Pulse Ox O2 Delivery O2 Flow Rate FiO2 02/13/17 10:30 57 20 133/70 94 02/13/17 10:00 Mechanical Ventilator 02/13/17 09:43 50 02/13/17 08:00 97.9 02/11/17 08:00 2.0 Intake and Output 02/12/17 02/12/17 02/13/17 15:00 23:00 07:00 Intake Total 904 ml 976 ml 854 ml Output Total 3220 ml 670 ml Balance 904 ml -2244 ml 184 ml Exam GENERAL: Morbidly obese lady on mechanical ventilation intubated comfortable. VITAL SIGNS: per chart NECK: Supple. No JVD or lymphadenopathy. CARDIAC EXAM: S1, S2. No added sounds or murmurs. CHEST: Diminished air entry bilaterally, pericardial drain in place ABDOMEN: Soft, nontender. No guarding or rebound. EXTREMITIES: No cyanosis, clubbing or edema. NEUROLOGIC: Significant weakness. Results/Medications Result Diagram: 02/12/17 0500 02/12/17 0500 Results 24 hrs Laboratory Tests Test 02/12/17 11:50 02/12/17 12:00 02/12/17 16:05 02/12/17 20:50 Bedside Glucose 113 132 171 Blood Gas Specimen Source Blood arterial Arterial Blood Date Drawn 02/12/2017 11:50:47 AM Arterial Blood pH (Temp corrected) 7.477 H Arterial Blood pCO2 (Temp correct) 42.8 Arterial Blood pO2 (Temp corrected) 99.5 Arterial Blood HCO3 30.9 H Arterial Blood Base Excess 6.7 H Arterial Blood Oxygen Saturation 97.4 Kareem Test N/A Arterial Blood Gas Puncture Site A-Line Arterial Blood Carboxyhemoglobin 0.1 Arterial Blood Methemoglobin 0.4 Blood Gas A-a O2 Differential 136.5 H Oxyhemoglobin Percent 96.9 Total Hemoglobin 11.1 L Blood Gas Temperature 37.0 Blood Gas Respiration Rate 8.0 Blood Gas Actual Respiration Rate 28 Blood Gas Modality VENT - SIMV FiO2 40.0 Blood Gas Tidal Volume 600.0 Blood Gas Low PEEP Setting 5.0 Blood Gas Notified Whom CW Blood Gas Notified Time 02/12/2017 12:06:42 PM Test 02/13/17 02:11 02/13/17 10:57 Bedside Glucose 167 158 Medications Current Medications Lorazepam (Ativan) 0.5 mg Q8H PRN PO ANXIETY; Start 01/30/17 at 05:00 Acetaminophen (Tylenol Tab) 650 mg Q6H PRN PO PAIN LEVEL 1-3 OR FEVER Last administered on 01/30/17 12:04; Admin Dose 650 MG; Start 01/30/17 at 05:00 Diagnostic Test (Pha) (Accu-Chek) 1 ea 02 XX Last administered on 02/05/17 02: 00; Admin Dose 1 EA; Start 01/31/17 at 02:00 Alprazolam (Xanax) 1 mg QHS PRN PO ANXIETY; Start 01/30/17 at 05:00 Benazepril HCl (Lotensin) 40 mg DAILY PO Last administered on 01/31/17 08:08; Admin Dose 40 MG; Start 01/30/17 at 09:00; Status Future Hold Docusate Sodium (Colace) 100 mg BID PO Last administered on 02/10/17 21:01; Admin Dose 100 MG; Start 01/30/17 at 09:00 Gabapentin (Neurontin) 100 mg BID PO Last administered on 02/10/17 21:01; Admin Dose 100 MG; Start 01/30/17 at 09:00 Acetaminophen/ Hydrocodone Bitart ([place] (10/325)) 1 tab Q6H PRN PO PAIN Last administered on 02/04/17 02:49; Admin Dose 1 TAB; Start 01/30/17 at 05:00 Miscellaneous Information 1 ea NOTE XX ; Start 01/30/17 at 05:00 Glucose (Glutose) 15 gm Q15M PRN PO DECREASED GLUCOSE; Start 01/30/17 at 05:00 Glucose (Glutose) 22.5 gm Q15M PRN PO DECREASED GLUCOSE; Start 01/30/17 at 05: 00 Dextrose (D50w Syringe) 25 ml Q15M PRN IV DECREASED GLUCOSE; Start 01/30/17 at 05:00 Dextrose (D50w Syringe) 50 ml Q15M PRN IV DECREASED GLUCOSE; Start 01/30/17 at 05:00 Glucagon (Glucagen) 1 mg Q15M PRN IM DECREASED GLUCOSE; Start 01/30/17 at 05:00 Glucose (Glutose) 15 gm Q15M PRN BUCCAL DECREASED GLUCOSE; Start 01/30/17 at 05 :00 Nitroglycerin (Nitroglycerin (Sl Tab) 0.4 Mg) 1 tab [id number] PRN SL CHEST PAIN ; Start 01/30/17 at 05:30 Heparin Sodium (Porcine) (Heparin (5000 Units/0.5 ml)) 5,000 unit Q8 SC Last administered on 02/10/17 14:12; Admin Dose 5,000 UNIT; Start 02/01/17 at 18:00 ; Status Future Hold Metoprolol Tartrate (Lopressor) 12.5 mg BID PRN PO BP>130 systolic; Start 02/02 at 12:00 Colchicine (Colchicine) 0.6 mg DAILY PO Last administered on 02/10/17 08:42; Admin Dose 0.6 MG; Start 02/03/17 at 09:00 Miscellaneous [facility] This patient deleon... PRN PRN XX WOUND CARE; Start 02/02/17 at 17:30 Nystatin (Nystatin Powder) 1 applic BID TOP Last administered on 02/13/17 08:07 ; Admin Dose 1 APPLIC; Start 02/02/17 at 21:00 Hydromorphone HCl (Dilaudid) 1 mg Q6H PRN IV PAIN Last administered on 03:46; Admin Dose 1 MG; Start 02/04/17 at 14:30 Senna (Senokot) 2 tab BID PO Last administered on 02/12/17 18:22; Admin Dose 2 TAB; Start 02/05/17 at 13:00 Furosemide (Lasix) 10 mg DAILY PO Last administered on 02/10/17 08:38; Admin Dose 10 MG; Start 02/05/17 at 14:30 Ferrous Gluconate (Fergon) 325 mg TID PO Last administered on 02/10/17 21:01; Admin Dose 325 MG; Start 02/06/17 at 13:00 Loratadine (Claritin) 10 mg DAILY PO ; Start 02/09/17 at 14:00 Acetaminophen/ Hydrocodone Bitart ([place] (5/325)) 1 tab Q6H PRN PO PAIN LEVEL 6 -10; Start 02/11/17 at 12:30 Ondansetron HCl 4 mg 4 mg Q6H PRN IV NAUSEA AND/OR VOMITING; Start 02/11/17 at 12:30 Potassium Chloride/Dextrose/ Sod Cl 1,000 ml @ 100 mls/hr Q10H IV Last administered on 02/13/17 00:02; Admin Dose 100 MLS/HR; Start 02/11/17 at 12:16 Propofol (Diprivan) 100 ml @ 3.672 mls/ hr Q12H IV Last administered on 10:55; Admin Dose 29.376 MLS/HR; Start 02/11/17 at 13:30 Hydromorphone HCl (Dilaudid) 1 mg Q4H PRN IV PAIN Last administered on 09:47; Admin Dose 1 MG; Start 02/11/17 at 20:30 Methylprednisolone Sodium Succinate (Solu-Medrol) 40 mg Q12 IV Last administered on 02/13/17 08:33; Admin Dose 40 MG; Start 02/12/17 at 13:30 Assessment/Plan Chief Complaint/Hosp Course IMP: 1. Hypoxemic hypercapnic respiratory failure. Concern for airway edema requiring prolonged mechanical ventilation following pericardial drainage. 2. History of pulmonary embolism. 3. History of psychiatric disorder. 4. SHIRLEY/OHS 5. Pericardial effusion. Status post drainage. Continue cardiothoracic recommendations, pending pathology. RECS: 1. Continue mechanical ventilation, continue steroids for laryngeal edema, will attempt CPAP trial and review endotracheal tube for cuff leak. 2. Cardiac recs. 3. Monitor renal function. 4. Will require nasogastric tube feeding if not extubated by tomorrow. 5. Continue DVT and GI prophylaxis Discussed with family at bedside. Critical care time 40 minutes. Problems: TALIA ACEVEDO MD, [facility] Feb 13, 2017 11:35
--- NOTE | 2017-02-13 12:59 | RADRPT ---
PROCEDURE: XR Chest. CLINICAL INDICATION: Post PICC line evaluation TECHNIQUE: Single view of the chest COMPARISON: Chest radiograph February 12, 2017 FINDINGS: There is a left-sided PICC with its tip in the right atrium. Recommend retraction of 2-3 cm. There is an endotracheal tube with its tip 5 cm above the jeanette. There is also a tube projecting over th e heart, unchanged. There are low lung volumes and there is enlarged cardiac silhouette. There is mild bibasilar atelectasis. There is no pneumothorax. There is no acute osseous abnormality. IMPRESSION: 1. Left-sided PICC with its tip in the right atrium. Recommend retraction of 2-3 cm. 2. Low lung volumes with enlarged cardiac silhouette, vascular congestion and bibasilar atelectasis /infiltrate. 3. Additional lines and tubes as above. RPTAT: UU .Santhosh Cano MD, MD Date Time Electronically viewed and signed by .Santhosh Cano MD, MD on 02/13/2017 12:58 .K/
--- NOTE | 2017-02-13 13:37 | RADRPT ---
PROCEDURE: XR Chest. CLINICAL INDICATION: Post PICC line evaluation TECHNIQUE: Single view of the chest COMPARISON: Chest radiograph earlier in the day FINDINGS: There is a left-sided PICC with its tip at the cavoatrial junction. The tip of the endotracheal tub e is 5 cm above the jeanette. There is also a tube projecting over the heart, unchanged. There are low lung volumes with mild vascular congestion. The left lung base is not included in the field of view. There is no pneumothorax. There is no acute osseous abnormality. IMPRESSION: 1. Left-sided PICC with its tip at the cavoatrial junction. 2. Low lung volumes with pulmonary vascular congestion and bibasilar atelectasis/infiltrate, incomp letely assessed. 3. Additional lines and tubes as above. RPTAT: UU .Santhosh Cano MD, MD Date Time Electronically viewed and signed by .Santhosh Cano MD, on 02/13/2017 13:37 .K/
--- NOTE | 2017-02-13 14:02 | CONS ---
Date/Time of Note Date/Time of Note DATE: 02/13/17 TIME: 14:01 Assessment/Plan Assessment/Plan Additional Assessment/Plan 46 yo Female with 1. Chest pain. 2. Moderate pericardial effusion S/p Pericardiocentesis 3. Hypoxia 4. Essential hypertension 5. Depression. 6. Type 2 diabetes mellitus 7. Acute kidney injury 8. Microcytic, hypochromic anemia 9. Morbid Obesity 10. Hyperkalemia- Resolved 11. Respiratory failure on Vent Repeat renal function studies Non oliguric Previous JANIS resolved Will cont to follow in ICU Consultation Date/Type/Reason Admit Date/Time Jan 30, 2017 at 02:47 Initial Consult Date 02/01/17 Type of Consultation: Renal 24 HR Interval Summary Subjective hx not possible: pt critical status Constitutional: requiring O2 Exam/Review of Systems Vital Signs Vitals Vital Signs Date Time Temp Pulse Resp B/P Pulse Ox O2 Delivery O2 Flow Rate FiO2 02/13/17 13:50 62 20 95 50 02/13/17 13:45 127/66 02/13/17 13:00 Mechanical Ventilator 02/13/17 12:00 98.3 02/11/17 08:00 2.0 Intake and Output 02/12/17 02/12/17 02/13/17 15:00 23:00 07:00 Intake Total 904 ml 976 ml 854 ml Output Total 3220 ml 670 ml Balance 904 ml -2244 ml 184 ml Exam ENMT: intubated, mucosa pink and moist Respiratory: crackles/rales, No diminished breath sounds Cardiovascular: edema, regular rate and rhythm Gastrointestinal: non-tender, soft Extremities: pitting pedal edema Neurological: other (sedated) Skin: No diaphoresis Results Result Diagram: 02/12/17 0500 02/12/17 0500 Results 24 hrs Laboratory Tests Test 02/12/17 16:05 02/12/17 20:50 02/13/17 02:11 02/13/17 10:57 Bedside Glucose 132 171 167 158 Medications Medications Current Medications Lorazepam (Ativan) 0.5 mg Q8H PRN PO ANXIETY; Start 01/30/17 at 05:00 Acetaminophen (Tylenol Tab) 650 mg Q6H PRN PO PAIN LEVEL 1-3 OR FEVER Last administered on 01/30/17t 12:04; Admin Dose 650 MG; Start 01/30/17 at 05:00 Diagnostic Test (Pha) (Accu-Chek) 1 ea 02 XX Last administered on 02/05/17 02: 00; Admin Dose 1 EA; Start 01/31/17 at 02:00 Alprazolam (Xanax) 1 mg QHS PRN PO ANXIETY; Start 01/30/17 at 05:00 Benazepril HCl (Lotensin) 40 mg DAILY PO Last administered on 01/31/17 08:08; Admin Dose 40 MG; Start 01/30/17 at 09:00; Status Future Hold Docusate Sodium (Colace) 100 mg BID PO Last administered on 02/10/17 21:01; Admin Dose 100 MG; Start 01/30/17 at 09:00 Gabapentin (Neurontin) 100 mg BID PO Last administered on 02/10/17 21:01; Admin Dose 100 MG; Start 01/30/17 at 09:00 Acetaminophen/ Hydrocodone Bitart ([place] (10/325)) 1 tab Q6H PRN PO PAIN Last administered on 02/04/17 02:49; Admin Dose 1 TAB; Start 01/30/17 at 05:00 Miscellaneous Information 1 ea NOTE XX ; Start 01/30/17 at 05:00 Glucose (Glutose) 15 gm Q15M PRN PO DECREASED GLUCOSE; Start 01/30/17 at 05:00 Glucose (Glutose) 22.5 gm Q15M PRN PO DECREASED GLUCOSE; Start 01/30/17 at 05: 00 Dextrose (D50w Syringe) 25 ml Q15M PRN IV DECREASED GLUCOSE; Start 01/30/17 at 05:00 Dextrose (D50w Syringe) 50 ml Q15M PRN IV DECREASED GLUCOSE; Start 01/30/17 at 05:00 Glucagon (Glucagen) 1 mg Q15M PRN IM DECREASED GLUCOSE; Start 01/30/17 at 05:00 Glucose (Glutose) 15 gm Q15M PRN BUCCAL DECREASED GLUCOSE; Start 01/30/17 at 05 :00 Nitroglycerin (Nitroglycerin (Sl Tab) 0.4 Mg) 1 tab [id number] PRN SL CHEST PAIN ; Start 01/30/17 at 05:30 Heparin Sodium (Porcine) (Heparin (5000 Units/0.5 ml)) 5,000 unit Q8 SC Last administered on 02/10/17 14:12; Admin Dose 5,000 UNIT; Start 02/01/17 at 18:00 ; Status Future Hold Metoprolol Tartrate (Lopressor) 12.5 mg BID PRN PO BP>130 systolic; Start 02/02 at 12:00 Colchicine (Colchicine) 0.6 mg DAILY PO Last administered on 02/10/17 08:42; Admin Dose 0.6 MG; Start 02/03/17 at 09:00 Miscellaneous Information (Pending [facility] Order For Wound Care) This patient deleon... PRN PRN XX WOUND CARE; Start 02/02/17 at 17:30 Nystatin (Nystatin Powder) 1 applic BID TOP Last administered on 02/13/17 08:07 ; Admin Dose 1 APPLIC; Start 02/02/17 at 21:00 Hydromorphone HCl (Dilaudid) 1 mg Q6H PRN IV PAIN Last administered on 03:46; Admin Dose 1 MG; Start 02/04/17 at 14:30 Senna (Senokot) 2 tab BID PO Last administered on 02/12/17 18:22; Admin Dose 2 TAB; Start 02/05/17 at 13:00 Furosemide (Lasix) 10 mg DAILY PO Last administered on 02/10/17 08:38; Admin Dose 10 MG; Start 02/05/17 at 14:30 Ferrous Gluconate (Fergon) 325 mg TID PO Last administered on 02/10/17 21:01; Admin Dose 325 MG; Start 02/06/17 at 13:00 Loratadine (Claritin) 10 mg DAILY PO ; Start 02/09/17 at 14:00 Acetaminophen/ Hydrocodone Bitart ([place] (5/325)) 1 tab Q6H PRN PO PAIN LEVEL 6 -10; Start 02/11/17 at 12:30 Ondansetron HCl 4 mg 4 mg Q6H PRN IV NAUSEA AND/OR VOMITING; Start 02/11/17 at 12:30 Potassium Chloride/Dextrose/ Sod Cl 1,000 ml @ 100 mls/hr Q10H IV Last administered on 02/13/17 13:14; Admin Dose 100 MLS/HR; Start 02/11/17 at 12:16 Propofol (Diprivan) 100 ml @ 3.672 mls/ hr Q12H IV Last administered on 13:14; Admin Dose 29.376 MLS/HR; Start 02/11/17 at 13:30 Hydromorphone HCl (Dilaudid) 1 mg Q4H PRN IV PAIN Last administered on 09:47; Admin Dose 1 MG; Start 02/11/17 at 20:30 Methylprednisolone Sodium Succinate (Solu-Medrol) 40 mg Q12 IV Last administered on 02/13/17 08:33; Admin Dose 40 MG; Start 02/12/17 at 13:30 ALBERT MARION MD Feb 13, 2017 14:02
--- NOTE | 2017-02-13 16:58 | PN ---
Date/Time of Note Date/Time of Note DATE: 02/13/17 TIME: 16:56 Assessment/Plan VTE Prophylaxis VTE Prophylaxis Intervention: SCD's Lines/Catheters IV Catheter Type (from Nrs): PICC Line Central line still needed: Yes Urinary Cath still in place: Yes Reason Cath still needed: other (indicate) (monitor I&O) Assessment/Plan Chief Complaint/Hosp Course Assessment and plan 1. Chest pain. troponins negative. Echocardiogram did show previous moderate -sized pericardial effusion. Suspect etiology for chest pain. Cardiology following. Continue diuresis. Status post left anterior thoracotomy and pericardiocentesis. Continue postop care. Continue with analgesics. 2. Moderate pericardial effusion. . Status post left anterior thoracotomy and pericardiocentesis 3. Acute respiratory failure likely secondary to #2. Continue diuresis. Of note patient does have history of pulmonary embolism was not a candidate for CT angiogram due to weight. CT scan was also ordered but patient could not tolerate procedure due to orthopnea. Bilateral lower extremity Doppler was negative for DVT. Continue with normalizer recommendation. Monitor for ability for vent liberation 4. Essential hypertension. On antihypertensives. To be adjusted as needed. 5. History of depression. Continue antidepressants. stable 6. Type 2 diabetes. On insulin regimen. Metformin on hold due to [place] I. stable 7. Acute kidney injury. Medications to be renally dosed. appears to be slowly improving. [employer] following 8. Morbid obesity. Morbid obesity. Weight reduction was advised. Disposition and plan: Vent liberation trials per normalizer. Monitor for secure airway. Continue ICU monitoring for now. Discussed plan of care with Dr. Hernandez Critical CARE time: 30 minutes Problems: Subjective 24 Hr Interval Summary Free Text/Dictation Remains intubated and sedated. Exam/Review of Systems Vital Signs Vitals Vital Signs Date Time Temp Pulse Resp B/P Pulse Ox O2 Delivery O2 Flow Rate FiO2 02/13/17 15:53 58 20 94 50 02/13/17 15:45 122/65 02/13/17 15:00 Mechanical Ventilator 02/13/17 12:00 98.3 02/11/17 08:00 2.0 Intake and Output 02/12/17 02/12/17 02/13/17 15:00 23:00 07:00 Intake Total 904 ml 976 ml 854 ml Output Total 3220 ml 670 ml Balance 904 ml -2244 ml 184 ml Exam Constitutional: obese, other (Sedated and sedated) Respiratory: clear to auscultation, other (Intubated on mechanical ventilation) Cardiovascular: other (Regular rate) Gastrointestinal: soft Extremities: No edema Neurological: other (Intubated and sedated) Results Result Diagram: 02/12/17 0500 02/12/17 0500 Results 24 hrs Laboratory Tests Test 02/12/17 20:50 02/13/17 02:11 02/13/17 10:57 Bedside Glucose 171 167 158 Medications Medications Current Medications Lorazepam (Ativan) 0.5 mg Q8H PRN PO ANXIETY; Start 01/30/17 at 05:00 Acetaminophen (Tylenol Tab) 650 mg Q6H PRN PO PAIN LEVEL 1-3 OR FEVER Last administered on 01/30/17 12:04; Admin Dose 650 MG; Start 01/30/17 at 05:00 Diagnostic Test (Pha) (Accu-Chek) 1 ea 02 XX Last administered on 02/05/17 02: 00; Admin Dose 1 EA; Start 01/31/17 at 02:00 Alprazolam (Xanax) 1 mg QHS PRN PO ANXIETY; Start 01/30/17 at 05:00 Benazepril HCl (Lotensin) 40 mg DAILY PO Last administered on 01/31/17 08:08; Admin Dose 40 MG; Start 01/30/17 at 09:00; Status Future Hold Docusate Sodium (Colace) 100 mg BID PO Last administered on 02/10/17 21:01; Admin Dose 100 MG; Start 01/30/17 at 09:00 Gabapentin (Neurontin) 100 mg BID PO Last administered on 02/10/17 21:01; Admin Dose 100 MG; Start 01/30/17 at 09:00 Acetaminophen/ Hydrocodone Bitart ([place] (10/325)) 1 tab Q6H PRN PO PAIN Last administered on 02/04/17 02:49; Admin Dose 1 TAB; Start 01/30/17 at 05:00 Miscellaneous Information 1 ea NOTE XX ; Start 01/30/17 at 05:00 Glucose (Glutose) 15 gm Q15M PRN PO DECREASED GLUCOSE; Start 01/30/17 at 05:00 Glucose (Glutose) 22.5 gm Q15M PRN PO DECREASED GLUCOSE; Start 01/30/17 at 05: 00 Dextrose (D50w Syringe) 25 ml Q15M PRN IV DECREASED GLUCOSE; Start 01/30/17 at 05:00 Dextrose (D50w Syringe) 50 ml Q15M PRN IV DECREASED GLUCOSE; Start 01/30/17 at 05:00 Glucagon (Glucagen) 1 mg Q15M PRN IM DECREASED GLUCOSE; Start 01/30/17 at 05:00 Glucose (Glutose) 15 gm Q15M PRN BUCCAL DECREASED GLUCOSE; Start 01/30/17 at 05 :00 Nitroglycerin (Nitroglycerin (Sl Tab) 0.4 Mg) 1 tab [id number] PRN SL CHEST PAIN ; Start 01/30/17 at 05:30 Heparin Sodium (Porcine) (Heparin (5000 Units/0.5 ml)) 5,000 unit Q8 SC Last administered on 02/10/17 14:12; Admin Dose 5,000 UNIT; Start 02/01/17 at 18:00 ; Status Future Hold Metoprolol Tartrate (Lopressor) 12.5 mg BID PRN PO BP>130 systolic; Start 02/02 at 12:00 Colchicine (Colchicine) 0.6 mg DAILY PO Last administered on 02/10/17 08:42; Admin Dose 0.6 MG; Start 02/03/17 at 09:00 Miscellaneous Information (Pending [facility] Order For Wound Care) This patient deleon... PRN PRN XX WOUND CARE; Start 02/02/17 at 17:30 Nystatin (Nystatin Powder) 1 applic BID TOP Last administered on 02/13/17 08:07 ; Admin Dose 1 APPLIC; Start 02/02/17 at 21:00 Hydromorphone HCl (Dilaudid) 1 mg Q6H PRN IV PAIN Last administered on 03:46; Admin Dose 1 MG; Start 02/04/17 at 14:30 Senna (Senokot) 2 tab BID PO Last administered on 02/12/17 18:22; Admin Dose 2 TAB; Start 02/05/17 at 13:00 Furosemide (Lasix) 10 mg DAILY PO Last administered on 02/10/17 08:38; Admin Dose 10 MG; Start 02/05/17 at 14:30 Ferrous Gluconate (Fergon) 325 mg TID PO Last administered on 02/10/17 21:01; Admin Dose 325 MG; Start 02/06/17 at 13:00 Loratadine (Claritin) 10 mg DAILY PO ; Start 02/09/17 at 14:00 Acetaminophen/ Hydrocodone Bitart ([place] (5/325)) 1 tab Q6H PRN PO PAIN LEVEL 6 -10; Start 02/11/17 at 12:30 Ondansetron HCl 4 mg 4 mg Q6H PRN IV NAUSEA AND/OR VOMITING; Start 02/11/17 at 12:30 Potassium Chloride/Dextrose/ Sod Cl 1,000 ml @ 100 mls/hr Q10H IV Last administered on 02/13/17 13:14; Admin Dose 100 MLS/HR; Start 02/11/17 at 12:16 Propofol (Diprivan) 100 ml @ 3.672 mls/ hr Q12H IV Last administered on 16:28; Admin Dose 29.376 MLS/HR; Start 02/11/17 at 13:30 Hydromorphone HCl (Dilaudid) 1 mg Q4H PRN IV PAIN Last administered on 09:47; Admin Dose 1 MG; Start 02/11/17 at 20:30 Methylprednisolone Sodium Succinate (Solu-Medrol) 40 mg Q12 IV Last administered on 02/13/17 08:33; Admin Dose 40 MG; Start 02/12/17 at 13:30 YAQUELIN RITTER Feb 13, 2017 16:58
[2017-02-14] VITALS (44 sets, daily range): BP systolic 106–150; BP diastolic 56–90; PULSE 42–60; RESP 18–20
[2017-02-14] MEDS: PROPOFOL 100 ML IV SCH ×10 (01:22→21:31)
--- NOTE | 2017-02-14 01:36 | RADRPT ---
PROCEDURE: XR Abdomen. CLINICAL INDICATION: Nasogastric tube placement. TECHNIQUE: AP abdomen x-ray. COMPARISON: None. FINDINGS: Study is limited by patient body habitus. There is a faintly visualized nasogastric tube likely in place with tip and side port in the proxima l stomach, although evaluation is limited secondary to patient body habitus. A narrow caliber chest tube appears to project over the inferior medial aspect of the left lung. Th ere is cardiomegaly. There may be mild nonspecific small bowel ileus. There is cardiomegaly with question pleural effusi on at the left lung base. There are no abnormal calcifications overlying the urinary tracts. The osseus structures are unremarkable. IMPRESSION: Nasogastric tube with tip and side port in the proximal stomach. RPTAT: [facility]U Physician Camelia Date Time Electronically viewed and signed by Physician Camelia on 02/14/2017 01:36 RS/
[2017-02-14] MEDS: DOCUSATE SODIUM 100 MG CAP PO SCH ×3 (01:40→21:00)
[2017-02-14] MEDS: FERROUS GLUCONATE (EC) 325 MG TAB PO SCH ×4 (01:41→21:00)
[2017-02-14] MEDS: SENNA TAB PO SCH ×3 (01:41→21:00)
[2017-02-14] MEDS: GABAPENTIN 100 MG CAP PO SCH ×3 (01:41→21:00)
[2017-02-14] MEDS: ACCU-CHEK XX SCH (01:44)
[2017-02-14 05:29] LABS: BASOPHILS % 0.1 % (0.0-2.0); EOSINOPHILS % 0.1 % (0.0-7.0); HEMATOCRIT 31.6 % (37.0-47.0); HEMOGLOBIN 9.4 g/dl (12.0-16.0); LYMPHOCYTES # 1.3 10^3/ul (0.8-2.9); MEAN CORPUSCULAR HEMOGLOBIN 22.6 pg (29.0-33.0); MEAN CORPUSCULAR HGB CONC 29.7 g/dl (32.0-37.0); MEAN PLATELET VOLUME 9.4 fl (7.4-10.4); MONOCYTE # 0.6 10^3/ul (0.3-0.9); MONOCYTES % 5.5 % (0.0-11.0); NEUTROPHILS % 81.6 % (39.0-77.0); PLATELET COUNT 315 10^3/UL (140-415); RED BLOOD COUNT 4.16 10^6/ul (4.20-5.40); RED CELL DISTRIBUTION WIDTH 18.8 % (11.5-14.5); WHITE BLOOD COUNT 11.1 10^3/ul (4.8-10.8)
[2017-02-14 06:15] LABS: CALCIUM 8.4 mg/dl (8.4-10.2); CREATININE 0.8 mg/dl (0.44-1.00); MAGNESIUM 1.9 mg/dl (1.7-2.5); PHOSPHORUS 3.8 mg/dl (2.5-4.9); POTASSIUM 3.9 mmol/L (3.5-5.1)
--- NOTE | 2017-02-14 07:08 | PN ---
Date/Time of Note Date/Time of Note DATE: 02/14/17 TIME: 07:04 Assessment/Plan Lines/Catheters IV Catheter Type (from Nrsg): PICC Line P[place] in Place (from Nrsg): Yes Assessment/Plan Chief Complaint/Hosp Course intubated on propofol drain minimal remove drain repeat echo tomorrow Problems: Exam/Review of Systems Vital Signs Vitals Vital Signs Date Time Temp Pulse Resp B/P Pulse Ox O2 Delivery O2 Flow Rate FiO2 02/14/17 06:00 49 20 131/70 93 Mechanical Ventilator 02/14/17 05:57 45 02/14/17 04:00 97.6 02/11/17 08:00 2.0 Intake and Output 02/13/17 02/13/17 02/14/17 15:00 23:00 07:00 Intake Total 1027.656 ml 1147.10 ml 1007.542 ml Output Total 580 ml 935 ml 459 ml Balance 447.656 ml 212.10 ml 548.542 ml Results Result Diagram: 02/14/17 0430 02/14/17 0430 ETIENNE ORTIZ MD Feb 14, 2017 07:08
[2017-02-14] MEDS: INSULIN ASPART [NOVOLOG] 3 ML PEN SC SCH ×4 (07:35→21:00)
[2017-02-14 08:49] LABS: AADO2 Arterial 220.1 mmHg (7.0-24.0); Allen Test ACCEPTAB; Arterial Base Excess 2.1 mmol/L (-3.0-3); Arterial COHb 0.3 % (0.0-3.0); Arterial Fraction of Oxyhgb 93.4 % (93.0-99.0); Arterial MetHb 0.3 % (0.0-1.5); Arterial Total Hemglobin 10.8 g/dl (12.0-18.0); MODE VENT - AC
--- NOTE | 2017-02-14 08:55 | PN ---
Date/Time of Note Date/Time of Note DATE: 02/14/17 TIME: 08:54 Assessment/Plan VTE Prophylaxis VTE Prophylaxis Intervention: SCD's Lines/[facility] Central line still needed: Yes Urinary Cath still in place: Yes Reason Cath still needed: other (indicate) Assessment/Plan Chief Complaint/Hosp Course 1. Moderate to large pericardial effusion. S/P thoracotomy and pericardiocentesis on 02/11/2017. S/P removal of chest tube on 02/14/2017. Continue colchicine. Needs to be started on aspirin or other NSAIDs once cleared by cardiac surgery. Etiology of the pericardial effusion could be idiopathic. Pericardial fluid culture has been negative. No evidence of any immune process such as lupus. 2. Acute respiratory failure. Hypoxic and hypercapnic. The patient has known history of pulmonary embolism. The patient not a candidate for a CT angiogram because of the heavy weight. VQ scan was ordered. The patient could not tolerate VQ scan because of orthopnea. B/L LE venous Doppler negative for any DVT . Being followed by Pulmonology. Currently intubated S/P surgery. 3. Essential hypertension. Continue antihypertensives. 4. Depression. Off antidepressants. 5. Type 2 diabetes mellitus. Will hold the metformin because of worsening renal function. Continue sliding scale insulin. 6. Acute kidney injury. Resolved. Will use nephrotoxic medications cautiously. Nephrology following. 7. Microcytic, hypochromic anemia. Underlying iron deficiency. Continue the patient on iron supplements. 8. Obesity. BMI of 46.3 kg/m. 10. Fluids, electrolytes, and nutrition. To be started on NGT feeds. 11. DVT prophylaxis. B/L SCDs. 12. Plan. Ventilator weaning as per pulmonary. On steroids for possible laryngeal edema. Case discussed with Dr. Ramirez. Critical Care time: 40 minutes. Problems: Subjective 24 Hr Interval Summary Free Text/Dictation The patient's chest tube has been out. Vital signs stable. Exam/Review of Systems Vital Signs Vitals Vital Signs Date Time Temp Pulse Resp B/P Pulse Ox O2 Delivery O2 Flow Rate FiO2 02/14/17 06:00 49 20 131/70 93 Mechanical Ventilator 02/14/17 05:57 45 02/14/17 04:00 97.6 02/11/17 08:00 2.0 Intake and Output 902/13/17 02/14/17 15:00 23:00 07:00 Intake Total 1027.656 ml 1147.10 ml 1007.542 ml Output Total 580 ml 935 ml 459 ml Balance 447.656 ml 212.10 ml 548.542 ml Exam General: Morbidly obese 46 year-old female lying in bed orally intubated. HEENT: Normocephalic, atraumatic. Eyes: Anicteric sclerae, conjunctivae clear. ENT: Nasal septum midline, oral mucosa is dry. Neck supple, no JVD noticed. Respiratory: Bilaterally diminished breath sounds. Intubated and mechanically ventilated. Cardiovascular: S1, S2 heard. Distant heart sounds Abdomen: Soft, nontender, and nondistended. Bowel sounds positive in all 4 quadrants. Genitourinary: Deferred. Extremities: No cyanosis, no clubbing, no edema. Peripheral pulses palpable. Neurologic: Awake and follows commands. Skin: Normal skin turgor. No skin rashes. Results Result Diagram: 02/14/17 0430 02/14/17 0430 Results 24 hrs Laboratory Tests Test 02/13/17 10:57 02/13/17 17:19 02/13/17 21:09 02/14/17 01:43 Bedside Glucose 158 163 148 141 Test 02/14/17 04:30 02/14/17 07:00 02/14/17 08:14 White Blood Count 11.1 #H Red Blood Count 4.16 L Hemoglobin 9.4 L Hematocrit 31.6 L Mean Corpuscular Volume 76.0 L Mean Corpuscular Hemoglobin 22.6 L Mean Corpuscular Hemoglobin Concent 29.7 L Red Cell Distribution Width 18.8 H Platelet Count 315 Mean Platelet Volume 9.4 Neutrophils % 81.6 H Lymphocytes % 12.0 L Monocytes % 5.5 Eosinophils % 0.1 Basophils % 0.1 Nucleated Red Blood Cells % 0.0 Neutrophils # (Manual) 9.1 H Lymphocytes # 1.3 Monocytes # 0.6 Eosinophils # 0.0 Basophils # 0.0 Nucleated Red Blood Cells # 0.0 Sodium Level 142 Potassium Level 3.9 Chloride Level 108 Carbon Dioxide Level 28 Anion Gap 10 Blood Urea Nitrogen 14 Creatinine 0.80 Glucose Level 127 Calcium Level 8.4 Phosphorus Level 3.8 Magnesium Level 1.9 Blood Gas Specimen Source Blood arterial Arterial Blood Date Drawn 02/14/2017 8:35:14 AM Arterial Blood pH (Temp corrected) 7.542 H Arterial Blood pCO2 (Temp correct) 28.6 L Arterial Blood pO2 (Temp corrected) 68.2 L Arterial Blood HCO3 24.0 Arterial Blood Base Excess 2.1 Arterial Blood Oxygen Saturation 94.0 L Kareem Test ACCEPTAB Arterial Blood Gas Puncture Site Right Radial Arterial Blood Carboxyhemoglobin 0.3 Arterial Blood Methemoglobin 0.3 Blood Gas A-a O2 Differential 220.1 H Oxyhemoglobin Percent 93.4 Total Hemoglobin 10.8 L Blood Gas Temperature 37.0 Blood Gas Respiration Rate 20.0 Blood Gas Actual Respiration Rate 20 Blood Gas Modality VENT - AC FiO2 45.0 Blood Gas Tidal Volume 600.0 Blood Gas Low PEEP Setting 5.0 Blood Gas Notified Whom SM Blood Gas Notified Time 02/14/2017 8:49:44 AM Bedside Glucose 116 Medications Medications Current Medications Lorazepam (Ativan) 0.5 mg Q8H PRN PO ANXIETY; Start 01/30/17 at 05:00 Acetaminophen (Tylenol Tab) 650 mg Q6H PRN PO PAIN LEVEL 1-3 OR FEVER Last administered on 01/30/17 12:04; Admin Dose 650 MG; Start 01/30/17 at 05:00 Diagnostic Test (Pha) (Accu-Chek) 1 ea 02 XX Last administered on 02/05/17 02: 00; Admin Dose 1 EA; Start 01/31/17 at 02:00 Alprazolam (Xanax) 1 mg QHS PRN PO ANXIETY; Start 01/30/17 at 05:00 Benazepril HCl (Lotensin) 40 mg DAILY PO Last administered on 01/31/17 08:08; Admin Dose 40 MG; Start 01/30/17 at 09:00; Status Future Hold Docusate Sodium (Colace) 100 mg BID PO Last administered on 02/14/17 01:40; Admin Dose 100 MG; Start 01/30/17 at 09:00 Gabapentin (Neurontin) 100 mg BID PO Last administered on 02/14/17 01:41; Admin Dose 100 MG; Start 01/30/17 at 09:00 Acetaminophen/ Hydrocodone Bitart ([place] (10/325)) 1 tab Q6H PRN PO PAIN Last administered on 02/04/17 02:49; Admin Dose 1 TAB; Start 01/30/17 at 05:00 Miscellaneous Information 1 ea NOTE XX ; Start 01/30/17 at 05:00 Glucose (Glutose) 15 gm Q15M PRN PO DECREASED GLUCOSE; Start 01/30/17 at 05:00 Glucose (Glutose) 22.5 gm Q15M PRN PO DECREASED GLUCOSE; Start 01/30/17 at 05: 00 Dextrose (D50w Syringe) 25 ml Q15M PRN IV DECREASED GLUCOSE; Start 01/30/17 at 05:00 Dextrose (D50w Syringe) 50 ml Q15M PRN IV DECREASED GLUCOSE; Start 01/30/17 at 05:00 Glucagon (Glucagen) 1 mg Q15M PRN IM DECREASED GLUCOSE; Start 01/30/17 at 05:00 Glucose (Glutose) 15 gm Q15M PRN BUCCAL DECREASED GLUCOSE; Start 01/30/17 at 05 :00 Nitroglycerin (Nitroglycerin (Sl Tab) 0.4 Mg) 1 tab [id number] PRN SL CHEST PAIN ; Start 01/30/17 at 05:30 Heparin Sodium (Porcine) (Heparin (5000 Units/0.5 ml)) 5,000 unit Q8 SC Last administered on 02/10/17 14:12; Admin Dose 5,000 UNIT; Start 02/01/17 at 18:00 ; Status Future Hold Metoprolol Tartrate (Lopressor) 12.5 mg BID PRN PO BP>130 systolic; Start 02/02 at 12:00 Colchicine (Colchicine) 0.6 mg DAILY PO Last administered on 02/10/17 08:42; Admin Dose 0.6 MG; Start 02/03/17 at 09:00 Miscellaneous Information (Pending [facility] Order For Wound Care) This patient deleon... PRN PRN XX WOUND CARE; Start 02/02/17 at 17:30 Nystatin (Nystatin Powder) 1 applic BID TOP Last administered on 02/13/17 21:47 ; Admin Dose 1 APPLIC; Start 02/02/17 at 21:00 Hydromorphone HCl (Dilaudid) 1 mg Q6H PRN IV PAIN Last administered on 03:46; Admin Dose 1 MG; Start 02/04/17 at 14:30 Senna (Senokot) 2 tab BID PO Last administered on 02/14/17 01:41; Admin Dose 2 TAB; Start 02/05/17 at 13:00 Furosemide (Lasix) 10 mg DAILY PO Last administered on 02/10/17 08:38; Admin Dose 10 MG; Start 02/05/17 at 14:30 Ferrous Gluconate (Fergon) 325 mg TID PO Last administered on 02/14/17 01:41; Admin Dose 325 MG; Start 02/06/17 at 13:00 Loratadine (Claritin) 10 mg DAILY PO ; Start 02/09/17 at 14:00 Acetaminophen/ Hydrocodone Bitart ([place] (5/325)) 1 tab Q6H PRN PO PAIN LEVEL 6 -10; Start 02/11/17 at 12:30 Ondansetron HCl 4 mg 4 mg Q6H PRN IV NAUSEA AND/OR VOMITING; Start 02/11/17 at 12:30 Potassium Chloride/Dextrose/ Sod Cl 1,000 ml @ 100 mls/hr Q10H IV Last administered on 02/13/17 22:38; Admin Dose 100 MLS/HR; Start 02/11/17 at 12:16 Propofol (Diprivan) 100 ml @ 3.672 mls/ hr Q12H IV Last administered on 07:38; Admin Dose 31.557 MLS/HR; Start 02/11/17 at 13:30 Hydromorphone HCl (Dilaudid) 1 mg Q4H PRN IV PAIN Last administered on 09:47; Admin Dose 1 MG; Start 02/11/17 at 20:30 Methylprednisolone Sodium Succinate (Solu-Medrol) 40 mg Q12 IV Last administered on 02/13/17 21:46; Admin Dose 40 MG; Start 02/12/17 at 13:30 SOLITARIO LAMBERT NP Feb 14, 2017 08:55
[2017-02-14] MEDS ORDERED: METOPROLOL (XL) 100 MG TAB PO SCH (09:00)
[2017-02-14] MEDS: D5-NS + KCL 20 MEQ 1,000 ML IV SCH (09:12)
[2017-02-14] MEDS: CALCIUM CARBONATE 500 MG CHEW TAB PO SCH ×3 (09:37→17:47)
[2017-02-14] MEDS: COLCHICINE 0.6 MG TAB PO SCH (09:37)
[2017-02-14] MEDS: LORATADINE 10 MG TAB PO SCH (09:37)
[2017-02-14] MEDS: METHYLPREDNISOLONE 40 MG INJ IV SCH ×2 (09:38→21:00)
[2017-02-14] MEDS: HYDROmorphONE 1 MG/ML SYG IV PRN (09:38)
[2017-02-14] MEDS: FUROSEMIDE 40 MG INJ IV SCH (09:38)
[2017-02-14] MEDS: NYSTATIN 30 GM POWDER BTL TOP SCH ×2 (09:39→21:00)
--- NOTE | 2017-02-14 09:51 | CONS ---
Date/Time of Note Date/Time of Note DATE: 02/14/17 TIME: 09:50 Consult Date/Type/Reason Admit Date/Time Jan 30, 2017 at 02:47 Initial Consult Date 02/01/17 Type of Consultation: Pulmonary Subjective Patient intubated sedated this morning. Transient desaturations overnight noted. Pericardial drain removed this morning. Objective Vital Signs Date Time Temp Pulse Resp B/P Pulse Ox O2 Delivery O2 Flow Rate FiO2 02/14/17 06:00 49 20 131/70 93 Mechanical Ventilator 02/14/17 05:57 45 02/14/17 04:00 97.6 02/11/17 08:00 2.0 Intake and Output 02/13/17 02/13/17 02/14/17 15:00 23:00 07:00 Intake Total 1027.656 ml 1147.10 ml 1007.542 ml Output Total 580 ml 935 ml 459 ml Balance 447.656 ml 212.10 ml 548.542 ml Exam Exam GENERAL: Morbidly obese lady on mechanical ventilation intubated comfortable. VITAL SIGNS: per chart NECK: Supple. No JVD or lymphadenopathy. CARDIAC EXAM: S1, S2. No added sounds or murmurs. CHEST: Diminished air entry bilaterally, ABDOMEN: Soft, nontender. No guarding or rebound. EXTREMITIES: No cyanosis, clubbing or edema. NEUROLOGIC: Significant weakness. Results/Medications Result Diagram: 02/14/17 0430 02/14/17 0430 Results 24 hrs Laboratory Tests Test 02/13/17 10:57 02/13/17 17:19 02/13/17 21:09 02/14/17 01:43 Bedside Glucose 158 163 148 141 Test 02/14/17 04:30 02/14/17 07:00 02/14/17 08:14 White Blood Count 11.1 #H Red Blood Count 4.16 L Hemoglobin 9.4 L Hematocrit 31.6 L Mean Corpuscular Volume 76.0 L Mean Corpuscular Hemoglobin 22.6 L Mean Corpuscular Hemoglobin Concent 29.7 L Red Cell Distribution Width 18.8 H Platelet Count 315 Mean Platelet Volume 9.4 Neutrophils % 81.6 H Lymphocytes % 12.0 L Monocytes % 5.5 Eosinophils % 0.1 Basophils % 0.1 Nucleated Red Blood Cells % 0.0 Neutrophils # (Manual) 9.1 H Lymphocytes # 1.3 Monocytes # 0.6 Eosinophils # 0.0 Basophils # 0.0 Nucleated Red Blood Cells # 0.0 Sodium Level 142 Potassium Level 3.9 Chloride Level 108 Carbon Dioxide Level 28 Anion Gap 10 Blood Urea Nitrogen 14 Creatinine 0.80 Glucose Level 127 Calcium Level 8.4 Phosphorus Level 3.8 Magnesium Level 1.9 Blood Gas Specimen Source Blood arterial Arterial Blood Date Drawn 02/14/2017 8:35:14 AM Arterial Blood pH (Temp corrected) 7.542 H Arterial Blood pCO2 (Temp correct) 28.6 L Arterial Blood pO2 (Temp corrected) 68.2 L Arterial Blood HCO3 24.0 Arterial Blood Base Excess 2.1 Arterial Blood Oxygen Saturation 94.0 L Kareem Test ACCEPTAB Arterial Blood Gas Puncture Site Right Radial Arterial Blood Carboxyhemoglobin 0.3 Arterial Blood Methemoglobin 0.3 Blood Gas A-a O2 Differential 220.1 H Oxyhemoglobin Percent 93.4 Total Hemoglobin 10.8 L Blood Gas Temperature 37.0 Blood Gas Respiration Rate 20.0 Blood Gas Actual Respiration Rate 20 Blood Gas Modality VENT - AC FiO2 45.0 Blood Gas Tidal Volume 600.0 Blood Gas Low PEEP Setting 5.0 Blood Gas Notified Whom SM Blood Gas Notified Time 02/14/2017 8:49:44 AM Bedside Glucose 116 Medications Current Medications Lorazepam (Ativan) 0.5 mg Q8H PRN PO ANXIETY; Start 01/30/17 at 05:00 Acetaminophen (Tylenol Tab) 650 mg Q6H PRN PO PAIN LEVEL 1-3 OR FEVER Last administered on 01/30/17 12:04; Admin Dose 650 MG; Start 01/30/17 at 05:00 Diagnostic Test (Pha) (Accu-Chek) 1 ea 02 XX Last administered on 02/05/17 02: 00; Admin Dose 1 EA; Start 01/31/17 at 02:00 Alprazolam (Xanax) 1 mg QHS PRN PO ANXIETY; Start 01/30/17 at 05:00 Benazepril HCl (Lotensin) 40 mg DAILY PO Last administered on 01/31/17 08:08; Admin Dose 40 MG; Start 01/30/17 at 09:00; Status Future Hold Docusate Sodium (Colace) 100 mg BID PO Last administered on 02/14/17 09:38; Admin Dose 100 MG; Start 01/30/17 at 09:00 Gabapentin (Neurontin) 100 mg BID PO Last administered on 02/14/17 09:37; Admin Dose 100 MG; Start 01/30/17 at 09:00 Acetaminophen/ Hydrocodone Bitart ([place] (10/325)) 1 tab Q6H PRN PO PAIN Last administered on 02/04/17 02:49; Admin Dose 1 TAB; Start 01/30/17 at 05:00 Miscellaneous Information 1 ea NOTE XX ; Start 01/30/17 at 05:00 Glucose (Glutose) 15 gm Q15M PRN PO DECREASED GLUCOSE; Start 01/30/17 at 05:00 Glucose (Glutose) 22.5 gm Q15M PRN PO DECREASED GLUCOSE; Start 01/30/17 at 05: 00 Dextrose (D50w Syringe) 25 ml Q15M PRN IV DECREASED GLUCOSE; Start 01/30/17 at 05:00 Dextrose (D50w Syringe) 50 ml Q15M PRN IV DECREASED GLUCOSE; Start 01/30/17 at 05:00 Glucagon (Glucagen) 1 mg Q15M PRN IM DECREASED GLUCOSE; Start 01/30/17 at 05:00 Glucose (Glutose) 15 gm Q15M PRN BUCCAL DECREASED GLUCOSE; Start 01/30/17 at 05 :00 Nitroglycerin (Nitroglycerin (Sl Tab) 0.4 Mg) 1 tab [id number] PRN SL CHEST PAIN ; Start 01/30/17 at 05:30 Heparin Sodium (Porcine) (Heparin (5000 Units/0.5 ml)) 5,000 unit Q8 SC Last administered on 02/10/17 14:12; Admin Dose 5,000 UNIT; Start 02/01/17 at 18:00 ; Status Future Hold Metoprolol Tartrate (Lopressor) 12.5 mg BID PRN PO BP>130 systolic; Start 02/02 at 12:00 Colchicine (Colchicine) 0.6 mg DAILY PO Last administered on 02/14/17 09:37; Admin Dose 0.6 MG; Start 02/03/17 at 09:00 Miscellaneous Information (Pending [facility] Order For Wound Care) This patient deleon... PRN PRN XX WOUND CARE; Start 02/02/17 at 17:30 Nystatin (Nystatin Powder) 1 applic BID TOP Last administered on 02/14/17 09:39 ; Admin Dose 1 APPLIC; Start 02/02/17 at 21:00 Hydromorphone HCl (Dilaudid) 1 mg Q6H PRN IV PAIN Last administered on 03:46; Admin Dose 1 MG; Start 02/04/17 at 14:30 Senna (Senokot) 2 tab BID PO Last administered on 02/14/17 09:37; Admin Dose 2 TAB; Start 02/05/17 at 13:00 Ferrous Gluconate (Fergon) 325 mg TID PO Last administered on 02/14/17 09:37; Admin Dose 325 MG; Start 02/06/17 at 13:00 Loratadine (Claritin) 10 mg DAILY PO Last administered on 02/14/17 09:37; Admin Dose 10 MG; Start 02/09/17 at 14:00 Acetaminophen/ Hydrocodone Bitart ([place] (5/325)) 1 tab Q6H PRN PO PAIN LEVEL 6 -10; Start 02/11/17 at 12:30 Ondansetron HCl 4 mg 4 mg Q6H PRN IV NAUSEA AND/OR VOMITING; Start 02/11/17 at 12:30 Potassium Chloride/Dextrose/ Sod Cl 1,000 ml @ 100 mls/hr Q10H IV Last administered on 02/14/17 09:12; Admin Dose 100 MLS/HR; Start 02/11/17 at 12:16 Propofol (Diprivan) 100 ml @ 3.672 mls/ hr Q12H IV Last administered on 09:12; Admin Dose 31.579 MLS/HR; Start 02/11/17 at 13:30 Hydromorphone HCl (Dilaudid) 1 mg Q4H PRN IV PAIN Last administered on 09:38; Admin Dose 1 MG; Start 02/11/17 at 20:30 Methylprednisolone Sodium Succinate (Solu-Medrol) 40 mg Q12 IV Last administered on 02/14/17 09:38; Admin Dose 40 MG; Start 02/12/17 at 13:30 Furosemide (Lasix) 40 mg DAILY IV Last administered on 02/14/17 09:38; Admin Dose 40 MG; Start 02/14/17 at 09:30 Assessment/Plan Chief Complaint/Hosp Course IMP: 1. Hypoxemic hypercapnic respiratory failure. Concern for airway edema requiring prolonged mechanical ventilation following pericardial drainage. Drain now removed. 2. History of pulmonary embolism. Underlying pulmonary edema on chest x-ray. 3. History of psychiatric disorder. 4. SHIRLEY/OHS RECS: 1. Continue mechanical ventilation, continue steroids for laryngeal edema, will attempt CPAP trial and review endotracheal tube for cuff leak. 2. Cardiac recs. 3. Monitor renal function. 4. Will require nasogastric tube feeding if not extubated by tomorrow. 5. Continue DVT and GI prophylaxis 6. Increase Lasix. Critical care time 40 minutes. Problems: TALIA ACEVEDO MD, [facility] Feb 14, 2017 09:51
[2017-02-14] MEDS: FENTAnyl (DRIP) 1000 mcg/100mL 100 ML IV SCH (10:20)
--- NOTE | 2017-02-14 11:26 | PN ---
DATE: 02/14/2017 SUBJECTIVE: Patient remains sedated and intubated on propofol. Pericardial drain was removed by Dr. Ashby this morning. PHYSICAL EXAMINATION: GENERAL: She is a comfortably on comfortable on the vent. VITAL SIGNS: Reviewed, appear stable with mild bradycardia noted. LUNGS: Decreased air entry bilaterally. HEART: Regular rhythm. ABDOMEN: Obese. EXTREMITIES: Revealed trace edema. MEDICATIONS: Reviewed, furosemide 40 mg daily which was started due to some possible congestion on x-ray and metoprolol 12.5 b.i.d. p.r.n. LABORATORY AND DIAGNOSTIC DATA: Results reviewed. White count 11.1, hematocrit 31.6. Chem 7 within normal limits. ASSESSMENT: 1. Pericardial effusion status post window by Dr. Ashby. 2. Respiratory failure, possible laryngeal edema, on steroids and CPAP trial planned for tomorrow. Lasix increased due to possible congestion on x-ray, although exam limited by obesity. Dictated By: Nguyễn Prater MD /shania/bernie /Document#: [id number]
--- NOTE | 2017-02-14 14:47 | RADRPT ---
PROCEDURE: XR Chest. CLINICAL INDICATION: CHF TECHNIQUE: A single AP view of the chest was obtained. COMPARISON: Chest x-ray dated 02/13/2017 FINDINGS: The endotracheal tube tip is approximately 4.1 cm above the jeanette. The tip of the enteric tube ex tends below the left diaphragm. There is a left subclavian central venous catheter with tip near the cavoatrial junction. There is a left pleural pigtail catheter in place. Lung volumes are low with compressive changes and crowding of the central pulmonary vascular marking s with bibasilar atelectasis . There are small bilateral pleural effusions. No pneumothorax is seen . The cardiomediastinal silhouette is moderately enlarged. The osseous structures are unremarkable . IMPRESSION: 1. Low lung volumes with compressive changes and small bilateral pleural effusions. Lung aeration i s mildly improved when compared to the prior examination. 2. Moderate cardiomegaly. 3. Tubes and lines, as described above. RPTAT: .Michelle Rendon MD, MD Date Time Electronically viewed and signed by .Michelle Rendon MD, on 02/14/2017 14:47 .G/
--- NOTE | 2017-02-14 17:17 | CONS ---
Date/Time of Note Date/Time of Note DATE: 02/14/17 TIME: 17:16 Assessment/Plan Assessment/Plan Additional Assessment/Plan 46 yo Female with 1. Chest pain. 2. Moderate pericardial effusion S/p Pericardiocentesis 3. Hypoxia 4. Essential hypertension 5. Depression. 6. Type 2 diabetes mellitus 7. Acute kidney injury 8. Microcytic, hypochromic anemia 9. Morbid Obesity 10. Hyperkalemia- Resolved 11. Respiratory failure on Vent Repeat renal function studies Non oliguric Previous JANIS resolved Will cont to follow in ICU Consultation Date/Type/Reason Admit Date/Time Jan 30, 2017 at 02:47 Initial Consult Date 02/01/17 Type of Consultation: Renal 24 HR Interval Summary Subjective hx not possible: pt critical status Constitutional: requiring O2 Exam/Review of Systems Vital Signs Vitals Vital Signs Date Time Temp Pulse Resp B/P Pulse Ox O2 Delivery O2 Flow Rate FiO2 02/14/17 16:00 48 02/14/17 14:00 20 135/80 96 Mechanical Ventilator 02/14/17 12:00 98.3 02/14/17 11:39 45 02/11/17 08:00 2.0 Intake and Output 02/13/17 02/13/17 02/14/17 15:00 23:00 07:00 Intake Total 1027.656 ml 1147.10 ml 1007.542 ml Output Total 580 ml 935 ml 459 ml Balance 447.656 ml 212.10 ml 548.542 ml Exam ENMT: intubated, mucosa pink and moist Respiratory: crackles/rales, No diminished breath sounds, No labored breathing Cardiovascular: edema, regular rate and rhythm Gastrointestinal: soft Results Result Diagram: 02/14/17 0430 02/14/17 0430 Results 24 hrs Laboratory Tests Test 02/13/17 17:19 02/13/17 21:09 02/14/17 01:43 02/14/17 04:30 Bedside Glucose 163 148 141 White Blood Count 11.1 #H Red Blood Count 4.16 L Hemoglobin 9.4 L Hematocrit 31.6 L Mean Corpuscular Volume 76.0 L Mean Corpuscular Hemoglobin 22.6 L Mean Corpuscular Hemoglobin Concent 29.7 L Red Cell Distribution Width 18.8 H Platelet Count 315 Mean Platelet Volume 9.4 Neutrophils % 81.6 H Lymphocytes % 12.0 L Monocytes % 5.5 Eosinophils % 0.1 Basophils % 0.1 Nucleated Red Blood Cells % 0.0 Neutrophils # (Manual) 9.1 H Lymphocytes # 1.3 Monocytes # 0.6 Eosinophils # 0.0 Basophils # 0.0 Nucleated Red Blood Cells # 0.0 Sodium Level 142 Potassium Level 3.9 Chloride Level 108 Carbon Dioxide Level 28 Anion Gap 10 Blood Urea Nitrogen 14 Creatinine 0.80 Glucose Level 127 Calcium Level 8.4 Phosphorus Level 3.8 Magnesium Level 1.9 Test 02/14/17 07:00 02/14/17 08:14 02/14/17 11:25 02/14/17 12:03 Blood Gas Specimen Source Blood arterial Arterial Blood Date Drawn 02/14/2017 8:35:14 AM Arterial Blood pH (Temp corrected) 7.542 H Arterial Blood pCO2 (Temp correct) 28.6 L Arterial Blood pO2 (Temp corrected) 68.2 L Arterial Blood HCO3 24.0 Arterial Blood Base Excess 2.1 Arterial Blood Oxygen Saturation 94.0 L Kareem Test ACCEPTAB Arterial Blood Gas Puncture Site Right Radial Arterial Blood Carboxyhemoglobin 0.3 Arterial Blood Methemoglobin 0.3 Blood Gas A-a O2 Differential 220.1 H Oxyhemoglobin Percent 93.4 Total Hemoglobin 10.8 L Blood Gas Temperature 37.0 Blood Gas Respiration Rate 20.0 Blood Gas Actual Respiration Rate 20 Blood Gas Modality VENT - AC FiO2 45.0 Blood Gas Tidal Volume 600.0 Blood Gas Low PEEP Setting 5.0 Blood Gas Notified Whom SM Blood Gas Notified Time 02/14/2017 8:49:44 AM Bedside Glucose 116 135 Lab Scanned Report REFERENCE LAB Medications Medications Current Medications Lorazepam (Ativan) 0.5 mg Q8H PRN PO ANXIETY; Start 01/30/17 at 05:00 Acetaminophen (Tylenol Tab) 650 mg Q6H PRN PO PAIN LEVEL 1-3 OR FEVER Last administered on 01/30/17 12:04; Admin Dose 650 MG; Start 01/30/17 at 05:00 Diagnostic Test (Pha) (Accu-Chek) 1 ea 02 XX Last administered on 02/05/17 02: 00; Admin Dose 1 EA; Start 01/31/17 at 02:00 Alprazolam (Xanax) 1 mg QHS PRN PO ANXIETY; Start 01/30/17 at 05:00 Benazepril HCl (Lotensin) 40 mg DAILY PO Last administered on 01/31/17 08:08; Admin Dose 40 MG; Start 01/30/17 at 09:00; Status Future Hold Docusate Sodium (Colace) 100 mg BID PO Last administered on 02/14/17 09:38; Admin Dose 100 MG; Start 01/30/17 at 09:00 Gabapentin (Neurontin) 100 mg BID PO Last administered on 02/14/17 09:37; Admin Dose 100 MG; Start 01/30/17 at 09:00 Acetaminophen/ Hydrocodone Bitart (Crozet (10)) 1 tab Q6H PRN PO PAIN Last administered on 02/04/17 02:49; Admin Dose 1 TAB; Start 01/30/17 at 05:00 Miscellaneous Information 1 ea NOTE XX ; Start 01/30/17 at 05:00 Glucose (Glutose) 15 gm Q15M PRN PO DECREASED GLUCOSE; Start 01/30/17 at 05:00 Glucose (Glutose) 22.5 gm Q15M PRN PO DECREASED GLUCOSE; Start 01/30/17 at 05: 00 Dextrose (D50w Syringe) 25 ml Q15M PRN IV DECREASED GLUCOSE; Start 01/30/17 at 05:00 Dextrose (D50w Syringe) 50 ml Q15M PRN IV DECREASED GLUCOSE; Start 01/30/17 at 05:00 Glucagon (Glucagen) 1 mg Q15M PRN IM DECREASED GLUCOSE; Start 01/30/17 at 05:00 Glucose (Glutose) 15 gm Q15M PRN BUCCAL DECREASED GLUCOSE; Start 01/30/17 at 05 :00 Nitroglycerin (Nitroglycerin (Sl Tab) 0.4 Mg) 1 tab [id number] PRN SL CHEST PAIN ; Start 01/30/17 at 05:30 Heparin Sodium (Porcine) (Heparin (5000 Units/0.5 ml)) 5,000 unit Q8 SC Last administered on 02/10/17 14:12; Admin Dose 5,000 UNIT; Start 02/01/17 at 18:00 ; Status Future Hold Metoprolol Tartrate (Lopressor) 12.5 mg BID PRN PO BP>130 systolic; Start 02/02 at 12:00 Colchicine (Colchicine) 0.6 mg DAILY PO Last administered on 02/14/17 09:37; Admin Dose 0.6 MG; Start 02/03/17 at 09:00 Miscellaneous Information (Pending [facility] Order For Wound Care) This patient deleon... PRN PRN XX WOUND CARE; Start 02/02/17 at 17:30 Nystatin (Nystatin Powder) 1 applic BID TOP Last administered on 02/14/17 09:39 ; Admin Dose 1 APPLIC; Start 02/02/17 at 21:00 Hydromorphone HCl (Dilaudid) 1 mg Q6H PRN IV PAIN Last administered on 03:46; Admin Dose 1 MG; Start 02/04/17 at 14:30 Senna (Senokot) 2 tab BID PO Last administered on 02/14/17 09:37; Admin Dose 2 TAB; Start 02/05/17 at 13:00 Ferrous Gluconate (Fergon) 325 mg TID PO Last administered on 02/14/17 13:59; Admin Dose 325 MG; Start 02/06/17 at 13:00 Loratadine (Claritin) 10 mg DAILY PO Last administered on 02/14/17 09:37; Admin Dose 10 MG; Start 02/09/17 at 14:00 Acetaminophen/ Hydrocodone Bitart ([place] (5/325)) 1 tab Q6H PRN PO PAIN LEVEL 6 -10; Start 02/11/17 at 12:30 Ondansetron HCl 4 mg 4 mg Q6H PRN IV NAUSEA AND/OR VOMITING; Start 02/11/17 at 12:30 Propofol (Diprivan) 100 ml @ 3.672 mls/ hr Q12H IV Last administered on 15:53; Admin Dose 19.829 MLS/HR; Start 02/11/17 at 13:30 Hydromorphone HCl (Dilaudid) 1 mg Q4H PRN IV PAIN Last administered on 09:38; Admin Dose 1 MG; Start 02/11/17 at 20:30 Methylprednisolone Sodium Succinate (Solu-Medrol) 40 mg Q12 IV Last administered on 02/14/17 09:38; Admin Dose 40 MG; Start 02/12/17 at 13:30 Furosemide (Lasix) 40 mg DAILY IV Last administered on 9/4/17at 09:38; Admin Dose 40 MG; Start 02/14/17 at 09:30 Procedures Procedures PROCEDURE: XR Chest. CLINICAL INDICATION: CHF TECHNIQUE: A single AP view of the chest was obtained. COMPARISON: Chest x-ray dated 02/13/2017 FINDINGS: The endotracheal tube tip is approximately 4.1 cm above the jeanette. The tip of the enteric tube extends below the left diaphragm. There is a left subclavian central venous catheter with tip near the cavoatrial junction. There is a left pleural pigtail catheter in place. Lung volumes are low with compressive changes and crowding of the central pulmonary vascular markings with bibasilar atelectasis . There are small bilateral pleural effusions. No pneumothorax is seen. The cardiomediastinal silhouette is moderately enlarged. The osseous structures are unremarkable. IMPRESSION: 1. Low lung volumes with compressive changes and small bilateral pleural effusions. Lung aeration is mildly improved when compared to the prior examination. 2. Moderate cardiomegaly. 3. Tubes and lines, as described above. ALBERT MARION MD Feb 14, 2017 17:17
[2017-02-15] VITALS (50 sets, daily range): BP systolic 78–164; BP diastolic 54–144; PULSE 40–69; RESP 11–27
[2017-02-15] MEDS: PROPOFOL 100 ML IV SCH ×3 (01:15→06:50)
[2017-02-15] MEDS: ACCU-CHEK XX SCH (02:00)
[2017-02-15] MEDS: FENTAnyl (DRIP) 1000 mcg/100mL 100 ML IV SCH (02:53)
[2017-02-15 05:26] LABS: BASOPHILS % 0.1 % (0.0-2.0); EOSINOPHILS % 0.1 % (0.0-7.0); HEMATOCRIT 32.4 % (37.0-47.0); HEMOGLOBIN 9.5 g/dl (12.0-16.0); LYMPHOCYTES # 0.9 10^3/ul (0.8-2.9); LYMPHOCYTES % 10.7 % (15.0-51.0); MEAN CORPUSCULAR HEMOGLOBIN 22.3 pg (29.0-33.0); MEAN CORPUSCULAR HGB CONC 29.3 g/dl (32.0-37.0); MEAN CORPUSCULAR VOLUME 76.1 fl (82.0-101.0); MEAN PLATELET VOLUME 9.3 fl (7.4-10.4); MONOCYTE # 0.4 10^3/ul (0.3-0.9); MONOCYTES % 4.6 % (0.0-11.0); PLATELET COUNT 304 10^3/UL (140-415); RED BLOOD COUNT 4.26 10^6/ul (4.20-5.40); RED CELL DISTRIBUTION WIDTH 19.1 % (11.5-14.5); WHITE BLOOD COUNT 8.4 10^3/ul (4.8-10.8)
[2017-02-15 05:59] LABS: CALCIUM 8.3 mg/dl (8.4-10.2); CREATININE 0.93 mg/dl (0.44-1.00); POTASSIUM 4.3 mmol/L (3.5-5.1)
[2017-02-15 06:02] LABS: MAGNESIUM 1.7 mg/dl (1.7-2.5); PHOSPHORUS 5.2 mg/dl (2.5-4.9)
[2017-02-15] MEDS: INSULIN ASPART [NOVOLOG] 3 ML PEN SC SCH ×4 (07:35→21:00)
--- NOTE | 2017-02-15 08:19 | RADRPT ---
PROCEDURE: XR Chest. CLINICAL INDICATION: Pneumonia, congestive heart failure TECHNIQUE: Single frontal view of the chest was obtained. COMPARISON: Chest x-ray from 02/14/2017 FINDINGS: The tracheostomy tube, enteric tube, and left-sided PICC line are unchanged in position. There is stable cardiomegaly and low lung volumes with increased prominence of interstitial markings , likely due to a combination of worsening congestive changes and vascular crowding. There are stable small bilateral pleural effusions and retrocardiac opacity due to atelectasis, infi ltrate, and / or effusion. IMPRESSION: Stable low lung volumes and cardiomegaly with increased prominence of interstitial markings, likely due to a combination of worsening congestive changes and vascular crowding. Stable small bilateral pleural effusions and retrocardiac opacity. RPTAT: EE Physician Josh Date Time Electronically viewed and signed by Physician Josh on 02/15/2017 08:19 /
--- NOTE | 2017-02-15 08:43 | PN ---
Date/Time of Note Date/Time of Note DATE: 02/15/17 TIME: 08:40 Assessment/Plan VTE Prophylaxis VTE Prophylaxis Intervention: SCD's Lines/Catheters IV Catheter Type (from [facility]): PICC Line Central line still needed: Yes Urinary Cath still in place: Yes Reason Cath still needed: other (indicate) Assessment/Plan Chief Complaint/Hosp Course 1. Moderate to large pericardial effusion. S/P thoracotomy and pericardiocentesis on 02/11/2017. S/P removal of chest tube on 02/14/2017. Continue colchicine. Needs to be started on aspirin or other NSAIDs once cleared by cardiac surgery. Etiology of the pericardial effusion could be idiopathic. Pericardial fluid culture has been negative. No evidence of any autoimmune process such as lupus. 2. Acute respiratory failure. Hypoxic and hypercapnic. The patient has known history of pulmonary embolism. The patient not a candidate for a CT angiogram because of the heavy weight. VQ scan was ordered. The patient could not tolerate VQ scan because of orthopnea. B/L LE venous Doppler negative for any DVT . Being followed by Pulmonology. Currently intubated S/P surgery. 3. Essential hypertension. Continue antihypertensives. 4. Depression. Off antidepressants. 5. Type 2 diabetes mellitus. Will hold the metformin because of worsening renal function. Continue sliding scale insulin. 6. Acute kidney injury. Resolved. Will use nephrotoxic medications cautiously. Nephrology following. 7. Microcytic, hypochromic anemia. Underlying iron deficiency. Continue the patient on iron supplements. 8. Obesity. BMI of 46.3 kg/m. 10. Fluids, electrolytes, and nutrition. NGT feeds. 11. DVT prophylaxis. B/L SCDs. 12. Plan. Ventilator weaning as per pulmonary. On steroids for possible laryngeal edema. Case discussed with Dr. Ramirez. Critical Care time: 40 minutes. Problems: Subjective 24 Hr Interval Summary Free Text/Dictation The patient is awake and alert. Complaints of minimal pain. Exam/Review of Systems Vital Signs Vitals Vital Signs Date Time Temp Pulse Resp B/P Pulse Ox O2 Delivery O2 Flow Rate FiO2 02/15/17 06:45 42 20 95 02/15/17 06:00 141/74 02/15/17 05:35 45 02/15/17 04:00 97.6 02/14/17 17:00 Mechanical Ventilator 02/11/17 08:00 2.0 Intake and Output 9/4/17 9/4/17 9/5/17 15:00 23:00 07:00 Intake Total 675.0 ml 429.8 ml 342 ml Output Total 3625 ml 600 ml 35 ml Balance -2950.0 ml -170.2 ml 307 ml Exam General: Morbidly obese 46 year-old female lying in bed orally intubated. HEENT: Normocephalic, atraumatic. Eyes: Anicteric sclerae, conjunctivae clear. ENT: Nasal septum midline, oral mucosa is dry. Neck supple, no JVD noticed. Respiratory: Bilaterally diminished breath sounds. Intubated and mechanically ventilated. Cardiovascular: S1, S2 heard. Distant heart sounds Abdomen: Soft, nontender, and nondistended. Bowel sounds positive in all 4 quadrants. Genitourinary: Deferred. Extremities: No cyanosis, no clubbing, no edema. Peripheral pulses palpable. Neurologic: Awake and follows commands. Skin: Normal skin turgor. No skin rashes. Results Result Diagram: 02/15/17 0439 02/15/17 0439 Results 24 hrs Laboratory Tests Test 02/14/17 11:25 02/14/17 12:03 02/14/17 17:43 02/14/17 21:16 Lab Scanned Report REFERENCE LAB Bedside Glucose 135 136 133 Test 02/15/17 02:26 02/15/17 04:39 02/15/17 08:04 Bedside Glucose 135 128 White Blood Count 8.4 # Red Blood Count 4.26 Hemoglobin 9.5 L Hematocrit 32.4 L Mean Corpuscular Volume 76.1 L Mean Corpuscular Hemoglobin 22.3 L Mean Corpuscular Hemoglobin Concent 29.3 L Red Cell Distribution Width 19.1 H Platelet Count 304 Mean Platelet Volume 9.3 Neutrophils % 84.0 H Lymphocytes % 10.7 L Monocytes % 4.6 Eosinophils % 0.1 Basophils % 0.1 Nucleated Red Blood Cells % 0.0 Neutrophils # (Manual) 7.1 Lymphocytes # 0.9 Monocytes # 0.4 Eosinophils # 0.0 Basophils # 0.0 Nucleated Red Blood Cells # 0.0 Sodium Level 142 Potassium Level 4.3 Chloride Level 107 Carbon Dioxide Level 28 Anion Gap 11 Blood Urea Nitrogen 20 Creatinine 0.93 Glucose Level 135 Calcium Level 8.3 L Phosphorus Level 5.2 H Magnesium Level 1.7 Medications Medications Current Medications Lorazepam (Ativan) 0.5 mg Q8H PRN PO ANXIETY; Start 01/30/17 at 05:00 Acetaminophen (Tylenol Tab) 650 mg Q6H PRN PO PAIN LEVEL 1-3 OR FEVER Last administered on 01/30/17 12:04; Admin Dose 650 MG; Start 01/30/17 at 05:00 Diagnostic Test (Pha) (Accu-Chek) 1 ea 02 XX Last administered on 02/05/17 02: 00; Admin Dose 1 EA; Start 01/31/17 at 02:00 Alprazolam (Xanax) 1 mg QHS PRN PO ANXIETY; Start 01/30/17 at 05:00 Benazepril HCl (Lotensin) 40 mg DAILY PO Last administered on 01/31/17 08:08; Admin Dose 40 MG; Start 01/30/17 at 09:00; Status Future Hold Docusate Sodium (Colace) 100 mg BID PO Last administered on 02/14/17 21:00; Admin Dose 100 MG; Start 01/30/17 at 09:00 Gabapentin (Neurontin) 100 mg BID PO Last administered on 02/14/17 21:00; Admin Dose 100 MG; Start 01/30/17 at 09:00 Acetaminophen/ Hydrocodone Bitart ([place] (10/325)) 1 tab Q6H PRN PO PAIN Last administered on 02/04/17 02:49; Admin Dose 1 TAB; Start 01/30/17 at 05:00 Miscellaneous Information 1 ea NOTE XX ; Start 01/30/17 at 05:00 Glucose (Glutose) 15 gm Q15M PRN PO DECREASED GLUCOSE; Start 01/30/17 at 05:00 Glucose (Glutose) 22.5 gm Q15M PRN PO DECREASED GLUCOSE; Start 01/30/17 at 05: 00 Dextrose (D50w Syringe) 25 ml Q15M PRN IV DECREASED GLUCOSE; Start 01/30/17 at 05:00 Dextrose (D50w Syringe) 50 ml Q15M PRN IV DECREASED GLUCOSE; Start 01/30/17 at 05:00 Glucagon (Glucagen) 1 mg Q15M PRN IM DECREASED GLUCOSE; Start 01/30/17 at 05:00 Glucose (Glutose) 15 gm Q15M PRN BUCCAL DECREASED GLUCOSE; Start 01/30/17 at 05 :00 Nitroglycerin (Nitroglycerin (Sl Tab) 0.4 Mg) 1 tab [id number] PRN SL CHEST PAIN ; Start 01/30/17 at 05:30 Heparin Sodium (Porcine) (Heparin (5000 Units/0.5 ml)) 5,000 unit Q8 SC Last administered on 02/10/17 14:12; Admin Dose 5,000 UNIT; Start 02/01/17 at 18:00 ; Status Future Hold Metoprolol Tartrate (Lopressor) 12.5 mg BID PRN PO BP>130 systolic; Start 02/02 at 12:00 Colchicine (Colchicine) 0.6 mg DAILY PO Last administered on 02/14/17 09:37; Admin Dose 0.6 MG; Start 02/03/17 at 09:00 Misc[facility] This patient deleon... PRN PRN XX WOUND CARE; Start 02/02/17 at 17:30 Nystatin (Nystatin Powder) 1 applic BID TOP Last administered on 02/14/17 21:00 ; Admin Dose 1 APPLIC; Start 02/02/17 at 21:00 Hydromorphone HCl (Dilaudid) 1 mg Q6H PRN IV PAIN Last administered on 03:46; Admin Dose 1 MG; Start 02/04/17 at 14:30 Senna (Senokot) 2 tab BID PO Last administered on 02/14/17 21:00; Admin Dose 2 TAB; Start 02/05/17 at 13:00 Ferrous Gluconate (Fergon) 325 mg TID PO Last administered on 02/14/17 21:00; Admin Dose 325 MG; Start 02/06/17 at 13:00 Loratadine (Claritin) 10 mg DAILY PO Last administered on 02/14/17 09:37; Admin Dose 10 MG; Start 02/09/17 at 14:00 Acetaminophen/ Hydrocodone Bitart ([place] (5/325)) 1 tab Q6H PRN PO PAIN LEVEL 6 -10; Start 02/11/17 at 12:30 Ondansetron HCl 4 mg 4 mg Q6H PRN IV NAUSEA AND/OR VOMITING; Start 02/11/17 at 12:30 Propofol (Diprivan) 100 ml @ 3.672 mls/ hr Q12H IV Last administered on 06:50; Admin Dose 33.048 MLS/HR; Start 02/11/17 at 13:30 Hydromorphone HCl (Dilaudid) 1 mg Q4H PRN IV PAIN Last administered on 09:38; Admin Dose 1 MG; Start 02/11/17 at 20:30 Methylprednisolone Sodium Succinate (Solu-Medrol) 40 mg Q12 IV Last administered on 02/14/17 21:00; Admin Dose 40 MG; Start 02/12/17 at 13:30 Furosemide (Lasix) 40 mg DAILY IV Last administered on 02/14/17 09:38; Admin Dose 40 MG; Start 02/14/17 at 09:30 SOLITARIO LAMBERT NP Feb 15, 2017 08:43
[2017-02-15] MEDS: CALCIUM CARBONATE 500 MG CHEW TAB PO SCH ×3 (08:45→18:59)
[2017-02-15] MEDS: METHYLPREDNISOLONE 40 MG INJ IV SCH ×2 (08:45→21:55)
[2017-02-15] MEDS: LORATADINE 10 MG TAB PO SCH (08:45)
[2017-02-15] MEDS: FUROSEMIDE 40 MG INJ IV SCH (08:45)
[2017-02-15] MEDS: SENNA TAB PO SCH ×2 (08:46→21:00)
[2017-02-15] MEDS: DOCUSATE SODIUM 100 MG CAP PO SCH ×2 (08:46→21:00)
[2017-02-15] MEDS: FERROUS GLUCONATE (EC) 325 MG TAB PO SCH ×3 (08:46→21:56)
[2017-02-15] MEDS: NYSTATIN 30 GM POWDER BTL TOP SCH ×2 (08:46→21:55)
[2017-02-15] MEDS: GABAPENTIN 100 MG CAP PO SCH ×2 (08:46→21:55)
[2017-02-15] MEDS: COLCHICINE 0.6 MG TAB PO SCH (08:46)
--- NOTE | 2017-02-15 09:34 | RADRPT ---
PROCEDURE: US guidance for PICC line CLINICAL INDICATION: PICC line placement TECHNIQUE: Multiple real-time images were acquired of the patient's arm utilizing a high resolutio n transducer. This was performed by the PICC line nurse for venous access. COMPARISON: None FINDINGS: Ultrasound guidance for PICC line placement. IMPRESSION: Ultrasound guidance for PICC line placement. RPTAT: AA .Medardo Portillo MD, MD Date Time Electronically viewed and signed by .Medardo Portillo MD, on 02/15/2017 09:34 .S/
--- NOTE | 2017-02-15 10:19 | CONS ---
Date/Time of Note Date/Time of Note DATE: 02/15/17 TIME: 10:18 Consult Date/Type/Reason Admit Date/Time Jan 30, 2017 at 02:47 Initial Consult Date 02/01/17 Type of Consultation: Pulmonary Subjective Patient awake alert comfortable this morning no respiratory distress. Objective Vital Signs Date Time Temp Pulse Resp B/P Pulse Ox O2 Delivery O2 Flow Rate FiO2 02/15/17 10:00 58 21 148/87 98 Mechanical Ventilator 02/15/17 08:00 98.1 02/15/17 05:35 45 02/11/17 08:00 2.0 Intake and Output 02/14/17 02/14/17 02/15/17 15:00 23:00 07:00 Intake Total 675.0 ml 429.8 ml 342 ml Output Total 3625 ml 600 ml 35 ml Balance -2950.0 ml -170.2 ml 307 ml Exam Exam GENERAL: Morbidly obese lady on mechanical ventilation intubated comfortable. VITAL SIGNS: per chart NECK: Supple. No JVD or lymphadenopathy. CARDIAC EXAM: S1, S2. No added sounds or murmurs. CHEST: Diminished air entry bilaterally, ABDOMEN: Soft, nontender. No guarding or rebound. EXTREMITIES: No cyanosis, clubbing or edema. NEUROLOGIC: No neurological deficits. Results/Medications Result Diagram: 02/15/17 0439 02/15/17 0439 Results 24 hrs Laboratory Tests Test 02/14/17 11:25 02/14/17 12:03 02/14/17 17:43 02/14/17 21:16 Lab Scanned Report REFERENCE LAB Bedside Glucose 135 136 133 Test 02/15/17 02:26 02/15/17 04:39 02/15/17 08:04 Bedside Glucose 135 128 White Blood Count 8.4 # Red Blood Count 4.26 Hemoglobin 9.5 L Hematocrit 32.4 L Mean Corpuscular Volume 76.1 L Mean Corpuscular Hemoglobin 22.3 L Mean Corpuscular Hemoglobin Concent 29.3 L Red Cell Distribution Width 19.1 H Platelet Count 304 Mean Platelet Volume 9.3 Neutrophils % 84.0 H Lymphocytes % 10.7 L Monocytes % 4.6 Eosinophils % 0.1 Basophils % 0.1 Nucleated Red Blood Cells % 0.0 Neutrophils # (Manual) 7.1 Lymphocytes # 0.9 Monocytes # 0.4 Eosinophils # 0.0 Basophils # 0.0 Nucleated Red Blood Cells # 0.0 Sodium Level 142 Potassium Level 4.3 Chloride Level 107 Carbon Dioxide Level 28 Anion Gap 11 Blood Urea Nitrogen 20 Creatinine 0.93 Glucose Level 135 Calcium Level 8.3 L Phosphorus Level 5.2 H Magnesium Level 1.7 Medications Current Medications Lorazepam (Ativan) 0.5 mg Q8H PRN PO ANXIETY; Start 01/30/17 at 05:00 Acetaminophen (Tylenol Tab) 650 mg Q6H PRN PO PAIN LEVEL 1-3 OR FEVER Last administered on 01/30/17 12:04; Admin Dose 650 MG; Start 01/30/17 at 05:00 Diagnostic Test (Pha) (Accu-Chek) 1 ea 02 XX Last administered on 02/05/17 02: 00; Admin Dose 1 EA; Start 01/31/17 at 02:00 Alprazolam (Xanax) 1 mg QHS PRN PO ANXIETY; Start 01/30/17 at 05:00 Benazepril HCl (Lotensin) 40 mg DAILY PO Last administered on 01/31/17 08:08; Admin Dose 40 MG; Start 01/30/17 at 09:00; Status Future Hold Docusate Sodium (Colace) 100 mg BID PO Last administered on 02/15/17 08:46; Admin Dose 100 MG; Start 01/30/17 at 09:00 Gabapentin (Neurontin) 100 mg BID PO Last administered on 02/15/17 08:46; Admin Dose 100 MG; Start 01/30/17 at 09:00 Acetaminophen/ Hydrocodone Bitart ([place] (10/325)) 1 tab Q6H PRN PO PAIN Last administered on 02/04/17 02:49; Admin Dose 1 TAB; Start 01/30/17 at 05:00 Miscellaneous Information 1 ea NOTE XX ; Start 01/30/17 at 05:00 Glucose (Glutose) 15 gm Q15M PRN PO DECREASED GLUCOSE; Start 01/30/17 at 05:00 Glucose (Glutose) 22.5 gm Q15M PRN PO DECREASED GLUCOSE; Start 01/30/17 at 05: 00 Dextrose (D50w Syringe) 25 ml Q15M PRN IV DECREASED GLUCOSE; Start 01/30/17 at 05:00 Dextrose (D50w Syringe) 50 ml Q15M PRN IV DECREASED GLUCOSE; Start 01/30/17 at 05:00 Glucagon (Glucagen) 1 mg Q15M PRN IM DECREASED GLUCOSE; Start 01/30/17 at 05:00 Glucose (Glutose) 15 gm Q15M PRN BUCCAL DECREASED GLUCOSE; Start 01/30/17 at 05 :00 Nitroglycerin (Nitroglycerin (Sl Tab) 0.4 Mg) 1 tab [id number] PRN SL CHEST PAIN ; Start 01/30/17 at 05:30 Heparin Sodium (Porcine) (Heparin (5000 Units/0.5 ml)) 5,000 unit Q8 SC Last administered on 02/10/17 14:12; Admin Dose 5,000 UNIT; Start 02/01/17 at 18:00 ; Status Future Hold Metoprolol Tartrate (Lopressor) 12.5 mg BID PRN PO BP>130 systolic; Start 02/02 at 12:00 Colchicine (Colchicine) 0.6 mg DAILY PO Last administered on 02/15/17 08:46; Admin Dose 0.6 MG; Start 02/03/17 at 09:00 [facility]iscellaneous Information [facility] This patient deleon... PRN PRN XX WOUND CARE; Start 02/02/17 at 17:30 Nystatin (Nystatin Powder) 1 applic BID TOP Last administered on 02/15/17 08:46 ; Admin Dose 1 APPLIC; Start 02/02/17 at 21:00 Hydromorphone HCl (Dilaudid) 1 mg Q6H PRN IV PAIN Last administered on 03:46; Admin Dose 1 MG; Start 02/04/17 at 14:30 Senna (Senokot) 2 tab BID PO Last administered on 02/15/17 08:46; Admin Dose 2 TAB; Start 02/05/17 at 13:00 Ferrous Gluconate (Fergon) 325 mg TID PO Last administered on 02/15/17 08:46; Admin Dose 325 MG; Start 02/06/17 at 13:00 Loratadine (Claritin) 10 mg DAILY PO Last administered on 02/15/17 08:45; Admin Dose 10 MG; Start 02/09/17 at 14:00 Acetaminophen/ Hydrocodone Bitart ([place] (5/325)) 1 tab Q6H PRN PO PAIN LEVEL 6 -10; Start 02/11/17 at 12:30 Ondansetron HCl 4 mg 4 mg Q6H PRN IV NAUSEA AND/OR VOMITING; Start 02/11/17 at 12:30 Propofol (Diprivan) 100 ml @ 3.672 mls/ hr Q12H IV Last administered on 06:50; Admin Dose 33.048 MLS/HR; Start 02/11/17 at 13:30 Hydromorphone HCl (Dilaudid) 1 mg Q4H PRN IV PAIN Last administered on 09:38; Admin Dose 1 MG; Start 02/11/17 at 20:30 Methylprednisolone Sodium Succinate (Solu-Medrol) 40 mg Q12 IV Last administered on 02/15/17 08:45; Admin Dose 40 MG; Start 02/12/17 at 13:30 Furosemide (Lasix) 40 mg DAILY IV Last administered on 02/15/17 08:45; Admin Dose 40 MG; Start 02/14/17 at 09:30 Assessment/Plan Chief Complaint/Hosp Course IMP: 1. Hypoxemic hypercapnic respiratory failure. Concern for airway edema requiring prolonged mechanical ventilation following pericardial drainage. Pericardial drain now removed. 2. History of pulmonary embolism. Underlying pulmonary edema on chest x-ray. 3. History of psychiatric disorder. 4. SHIRLEY/OHS RECS: 1. CPAP trial this morning. Patient has a cuff leak. 2. Cardiac recs. 3. Monitor renal function. 4. Speech therapy evaluation postextubation. 5. Continue DVT and GI prophylaxis 6. Continue Lasix. Critical care time 40 minutes. Discussed with family at bedside. Problems: TALIA ACEVEDO MD, [facility] Feb 15, 2017 10:19
[2017-02-15 10:34] LABS: AADO2 Arterial 142.4 mmHg (7.0-24.0); Arterial Base Excess 3.8 mmol/L (-3.0-3); Arterial COHb 0.1 % (0.0-3.0); Arterial Fraction of Oxyhgb 96.1 % (93.0-99.0); Arterial HCO3 28.6 mmol/L (22.0-26.0); Arterial MetHb 0.3 % (0.0-1.5); MODE VENT - CPAP
[2017-02-15] MEDS ORDERED: ALBUTEROL/IPRATROPIUM (NEB) 3 ML AMP HHN PRN (11:30)
--- NOTE | 2017-02-15 14:56 | RADRPT ---
Echocardiogram Report Patient Name: ALISE ARROYO Gender: Female Date: 1970 Study Date: 15-Feb-2017 Retail General Manager: Isabel Sanabria RDCS Location: 109 Ref. Physician: ETIENNE ORTIZ Quality: Adequate Procedures: Transthoracic echocardiogram examination. Indications: Pericardial Effusion. Findings Left Ventricle: Normal left ventricular systolic function. The left ventricular ejection fraction is visually estimated at 65 %. Pericardium: Trivial to small effusion. Conclusions 1.Normal left ventricular systolic function. The left ventricular ejection fraction is visually estimated at 65 %. 2.Trivial to small effusion. Electronically Signed By: Sean Gallego 15-Feb-2017 14:55:43 -0700 Patient Name: ALISE ARROYO Study Date: 15-Feb-2017 [id number]
--- NOTE | 2017-02-15 16:19 | CONS ---
Date/Time of Note Date/Time of Note DATE: 02/15/17 TIME: 16:17 Assessment/Plan Assessment/Plan Additional Assessment/Plan Pericardial effusion s/p pericardial window 02/11/17 Preserved ejection fraction Respiratory failure, extubated Supermorbid obesity Obstructive sleep apnea -Patient extubated this morning. Initial pathology report negative for malignancy. I did contact our esteemed pathologist Dr. Monte regarding clinical history and difficulty with doing further imaging studies given patient 's severe morbid obesity. He will evaluate additional fluid sent for possible malignancy. Consultation Date/Type/Reason Admit Date/Time Jan 30, 2017 at 02:47 Initial Consult Date 02/01/17 Type of Consultation: cv 24 HR Interval Summary Free Text/Dictation Patient extubated this morning. Denies shortness of breath, chest pain Exam/Review of Systems Vital Signs Vitals Vital Signs Date Time Temp Pulse Resp B/P Pulse Ox O2 Delivery O2 Flow Rate FiO2 02/15/17 15:12 24 133/73 95 Nasal Cannula 3.0 02/15/17 15:00 61 02/15/17 12:00 98.4 02/15/17 09:40 40 Intake and Output 02/14/17 02/14/17 02/15/17 15:00 23:00 07:00 Intake Total 675.0 ml 429.8 ml 342 ml Output Total 3625 ml 600 ml 35 ml Balance -2950.0 ml -170.2 ml 307 ml Exam No apparent distress Constitutional: alert, obese, oriented Head: normocephalic Respiratory: other (Coarse breath sounds bilaterally, no wheezing) Cardiovascular: other (S1-S2 heard), regular rate and rhythm Gastrointestinal: bowel sounds, non-tender, soft Extremities: edema Results Result Diagram: 02/15/17 0439 02/15/17 0439 Results 24 hrs Laboratory Tests Test 02/14/17 17:43 02/14/17 21:16 02/15/17 02:26 02/15/17 04:39 Bedside Glucose 136 133 135 White Blood Count 8.4 # Red Blood Count 4.26 Hemoglobin 9.5 L Hematocrit 32.4 L Mean Corpuscular Volume 76.1 L Mean Corpuscular Hemoglobin 22.3 L Mean Corpuscular Hemoglobin Concent 29.3 L Red Cell Distribution Width 19.1 H Platelet Count 304 Mean Platelet Volume 9.3 Neutrophils % 84.0 H Lymphocytes % 10.7 L Monocytes % 4.6 Eosinophils % 0.1 Basophils % 0.1 Nucleated Red Blood Cells % 0.0 Neutrophils # (Manual) 7.1 Lymphocytes # 0.9 Monocytes # 0.4 Eosinophils # 0.0 Basophils # 0.0 Nucleated Red Blood Cells # 0.0 Sodium Level 142 Potassium Level 4.3 Chloride Level 107 Carbon Dioxide Level 28 Anion Gap 11 Blood Urea Nitrogen 20 Creatinine 0.93 Glucose Level 135 Calcium Level 8.3 L Phosphorus Level 5.2 H Magnesium Level 1.7 Test 02/15/17 08:04 02/15/17 10:15 02/15/17 12:34 Bedside Glucose 128 125 Blood Gas Specimen Source Blood arterial Arterial Blood Date Drawn 02/15/2017 10:25:45 AM Arterial Blood pH (Temp corrected) 7.430 Arterial Blood pCO2 (Temp correct) 44.1 Arterial Blood pO2 (Temp corrected) 92.1 Arterial Blood HCO3 28.6 H Arterial Blood Base Excess 3.8 H Arterial Blood Oxygen Saturation 96.5 Kareem Test N/A Arterial Blood Gas Puncture Site Right Brachial Arterial Blood Carboxyhemoglobin 0.1 Arterial Blood Methemoglobin 0.3 Blood Gas A-a O2 Differential 142.4 H Oxyhemoglobin Percent 96.1 Total Hemoglobin 12.0 Blood Gas Temperature 37.0 Blood Gas Actual Respiration Rate 24 Blood Gas Modality VENT - CPAP FiO2 40.0 Blood Gas Low PEEP Setting 5.0 Blood Gas Notified Whom TM Blood Gas Notified Time 02/15/2017 10:34:20 AM Medications Medications Current Medications Lorazepam (Ativan) 0.5 mg Q8H PRN PO ANXIETY; Start 01/30/17 at 05:00 Acetaminophen (Tylenol Tab) 650 mg Q6H PRN PO PAIN LEVEL 1-3 OR FEVER Last administered on 01/30/17 12:04; Admin Dose 650 MG; Start 01/30/17 at 05:00 Diagnostic Test (Pha) (Accu-Chek) 1 ea 02 XX Last administered on 02/05/17 02: 00; Admin Dose 1 EA; Start 01/31/17 at 02:00 Alprazolam (Xanax) 1 mg QHS PRN PO ANXIETY; Start 01/30/17 at 05:00 Benazepril HCl (Lotensin) 40 mg DAILY PO Last administered on 01/31/17 08:08; Admin Dose 40 MG; Start 01/30/17 at 09:00; Status Future Hold Docusate Sodium (Colace) 100 mg BID PO Last administered on 02/15/17 08:46; Admin Dose 100 MG; Start 01/30/17 at 09:00 Gabapentin (Neurontin) 100 mg BID PO Last administered on 02/15/17 08:46; Admin Dose 100 MG; Start 01/30/17 at 09:00 Acetaminophen/ Hydrocodone Bitart ([place] (10/325)) 1 tab Q6H PRN PO PAIN Last administered on 02/04/17 02:49; Admin Dose 1 TAB; Start 01/30/17 at 05:00 Miscellaneous Information 1 ea NOTE XX ; Start 01/30/17 at 05:00 Glucose (Glutose) 15 gm Q15M PRN PO DECREASED GLUCOSE; Start 01/30/17 at 05:00 Glucose (Glutose) 22.5 gm Q15M PRN PO DECREASED GLUCOSE; Start 01/30/17 at 05: 00 Dextrose (D50w Syringe) 25 ml Q15M PRN IV DECREASED GLUCOSE; Start 01/30/17 at 05:00 Dextrose (D50w Syringe) 50 ml Q15M PRN IV DECREASED GLUCOSE; Start 01/30/17 at 05:00 Glucagon (Glucagen) 1 mg Q15M PRN IM DECREASED GLUCOSE; Start 01/30/17 at 05:00 Glucose (Glutose) 15 gm Q15M PRN BUCCAL DECREASED GLUCOSE; Start 01/30/17 at 05 :00 Nitroglycerin (Nitroglycerin (Sl Tab) 0.4 Mg) 1 tab [id number] PRN SL CHEST PAIN ; Start 01/30/17 at 05:30 Heparin Sodium (Porcine) (Heparin (5000 Units/0.5 ml)) 5,000 unit Q8 SC Last administered on 02/10/17 14:12; Admin Dose 5,000 UNIT; Start 02/01/17 at 18:00 ; Status Future Hold Metoprolol Tartrate (Lopressor) 12.5 mg BID PRN PO BP>130 systolic; Start 02/02 at 12:00 Colchicine (Colchicine) 0.6 mg DAILY PO Last administered on 02/15/17 08:46; Admin Dose 0.6 MG; Start 02/03/17 at 09:00 Miscellaneous Information (Pending [facility] Order For Wound Care) This patient deleon... PRN PRN XX WOUND CARE; Start 02/02/17 at 17:30 Nystatin (Nystatin Powder) 1 applic BID TOP Last administered on 02/15/17 08:46 ; Admin Dose 1 APPLIC; Start 02/02/17 at 21:00 Hydromorphone HCl (Dilaudid) 1 mg Q6H PRN IV PAIN Last administered on 03:46; Admin Dose 1 MG; Start 02/04/17 at 14:30 Senna (Senokot) 2 tab BID PO Last administered on 02/15/17 08:46; Admin Dose 2 TAB; Start 02/05/17 at 13:00 Ferrous Gluconate (Fergon) 325 mg TID PO Last administered on 02/15/17 13:11; Admin Dose 325 MG; Start 02/06/17 at 13:00 Loratadine (Claritin) 10 mg DAILY PO Last administered on 02/15/17 08:45; Admin Dose 10 MG; Start 02/09/17 at 14:00 Acetaminophen/ Hydrocodone Bitart ([place] (5/325)) 1 tab Q6H PRN PO PAIN LEVEL 6 -10; Start 02/11/17 at 12:30 Ondansetron HCl 4 mg 4 mg Q6H PRN IV NAUSEA AND/OR VOMITING; Start 02/11/17 at 12:30 Propofol (Diprivan) 100 ml @ 3.672 mls/ hr Q12H IV Last administered on 06:50; Admin Dose 33.048 MLS/HR; Start 02/11/17 at 13:30 Hydromorphone HCl (Dilaudid) 1 mg Q4H PRN IV PAIN Last administered on 09:38; Admin Dose 1 MG; Start 02/11/17 at 20:30 Methylprednisolone Sodium Succinate (Solu-Medrol) 40 mg Q12 IV Last administered on 02/15/17 08:45; Admin Dose 40 MG; Start 02/12/17 at 13:30 Furosemide (Lasix) 40 mg DAILY IV Last administered on 02/15/17 08:45; Admin Dose 40 MG; Start 02/14/17 at 09:30 Sean Gallego DO Feb 15, 2017 16:19
--- NOTE | 2017-02-15 20:58 | CONS ---
Date/Time of Note Date/Time of Note DATE: 02/15/17 TIME: 20:56 Assessment/Plan Assessment/Plan Additional Assessment/Plan 46 yo Female with 1. Chest pain. 2. Moderate pericardial effusion S/p Pericardiocentesis 3. Hypoxia 4. Essential hypertension 5. Depression. 6. Type 2 diabetes mellitus 7. Acute kidney injury 8. Microcytic, hypochromic anemia 9. Morbid Obesity 10. Hyperkalemia- Resolved 11. Respiratory failure on Vent Repeat renal function studies Non oliguric JANIS Resolved Will cont to follow in ICU Consultation Date/Type/Reason Admit Date/Time Jan 30, 2017 at 02:47 Initial Consult Date 02/01/17 Type of Consultation: Renal 24 HR Interval Summary Free Text/Dictation Extubated, good UO Subjective hx not possible: pt critical status Exam/Review of Systems Vital Signs Vitals Vital Signs Date Time Temp Pulse Resp B/P Pulse Ox O2 Delivery O2 Flow Rate FiO2 02/15/17 19:48 3.0 02/15/17 18:00 69 21 128/93 95 Nasal Cannula 02/15/17 16:00 98.2 02/15/17 09:40 40 Intake and Output 02/14/17 02/14/17 02/15/17 15:00 23:00 07:00 Intake Total 675.0 ml 429.8 ml 342 ml Output Total 3625 ml 600 ml 35 ml Balance -2950.0 ml -170.2 ml 307 ml Exam Constitutional: alert, No distress Eyes: EOMI ENMT: mucosa pink and moist Neck: No jvd Respiratory: No labored breathing Cardiovascular: edema, regular rate and rhythm Gastrointestinal: soft Neurological: [employer]ID MEDIA II-XII intact, nl mental status, No lethargic Results Result Diagram: 02/15/17 0439 02/15/17 0439 Results 24 hrs Laboratory Tests Test 02/14/17 21:16 02/15/17 02:26 02/15/17 04:39 02/15/17 08:04 Bedside Glucose 133 135 128 White Blood Count 8.4 # Red Blood Count 4.26 Hemoglobin 9.5 L Hematocrit 32.4 L Mean Corpuscular Volume 76.1 L Mean Corpuscular Hemoglobin 22.3 L Mean Corpuscular Hemoglobin Concent 29.3 L Red Cell Distribution Width 19.1 H Platelet Count 304 Mean Platelet Volume 9.3 Neutrophils % 84.0 H Lymphocytes % 10.7 L Monocytes % 4.6 Eosinophils % 0.1 Basophils % 0.1 Nucleated Red Blood Cells % 0.0 Neutrophils # (Manual) 7.1 Lymphocytes # 0.9 Monocytes # 0.4 Eosinophils # 0.0 Basophils # 0.0 Nucleated Red Blood Cells # 0.0 Sodium Level 142 Potassium Level 4.3 Chloride Level 107 Carbon Dioxide Level 28 Anion Gap 11 Blood Urea Nitrogen 20 Creatinine 0.93 Glucose Level 135 Calcium Level 8.3 L Phosphorus Level 5.2 H Magnesium Level 1.7 Test 02/15/17 10:15 02/15/17 12:34 02/15/17 16:58 Blood Gas Specimen Source Blood arterial Arterial Blood Date Drawn 02/15/2017 10:25:45 AM Arterial Blood pH (Temp corrected) 7.430 Arterial Blood pCO2 (Temp correct) 44.1 Arterial Blood pO2 (Temp corrected) 92.1 Arterial Blood HCO3 28.6 H Arterial Blood Base Excess 3.8 H Arterial Blood Oxygen Saturation 96.5 Kareem Test N/A Arterial Blood Gas Puncture Site Right Brachial Arterial Blood Carboxyhemoglobin 0.1 Arterial Blood Methemoglobin 0.3 Blood Gas A-a O2 Differential 142.4 H Oxyhemoglobin Percent 96.1 Total Hemoglobin 12.0 Blood Gas Temperature 37.0 Blood Gas Actual Respiration Rate 24 Blood Gas Modality VENT - CPAP FiO2 40.0 Blood Gas Low PEEP Setting 5.0 Blood Gas Notified Whom TM Blood Gas Notified Time 02/15/2017 10:34:20 AM Bedside Glucose 125 131 Medications Medications Current Medications Lorazepam (Ativan) 0.5 mg Q8H PRN PO ANXIETY; Start 01/30/17 at 05:00 Acetaminophen (Tylenol Tab) 650 mg Q6H PRN PO PAIN LEVEL 1-3 OR FEVER Last administered on 01/30/17 12:04; Admin Dose 650 MG; Start 01/30/17 at 05:00 Diagnostic Test (Pha) (Accu-Chek) 1 ea 02 XX Last administered on 02/05/17 02: 00; Admin Dose 1 EA; Start 01/31/17 at 02:00 Alprazolam (Xanax) 1 mg QHS PRN PO ANXIETY; Start 01/30/17 at 05:00 Benazepril HCl (Lotensin) 40 mg DAILY PO Last administered on 01/31/17 08:08; Admin Dose 40 MG; Start 01/30/17 at 09:00; Status Future Hold Docusate Sodium (Colace) 100 mg BID PO Last administered on 02/15/17 08:46; Admin Dose 100 MG; Start 01/30/17 at 09:00 Gabapentin (Neurontin) 100 mg BID PO Last administered on 02/15/17 08:46; Admin Dose 100 MG; Start 01/30/17 at 09:00 Acetaminophen/ Hydrocodone Bitart ([place] (10325)) 1 tab Q6H PRN PO PAIN Last administered on 02/04/17 02:49; Admin Dose 1 TAB; Start 01/30/17 at 05:00 Miscellaneous Information 1 ea NOTE XX ; Start 01/30/17 at 05:00 Glucose (Glutose) 15 gm Q15M PRN PO DECREASED GLUCOSE; Start 01/30/17 at 05:00 Glucose (Glutose) 22.5 gm Q15M PRN PO DECREASED GLUCOSE; Start 01/30/17 at 05: 00 Dextrose (D50w Syringe) 25 ml Q15M PRN IV DECREASED GLUCOSE; Start 01/30/17 at 05:00 Dextrose (D50w Syringe) 50 ml Q15M PRN IV DECREASED GLUCOSE; Start 01/30/17 at 05:00 Glucagon (Glucagen) 1 mg Q15M PRN IM DECREASED GLUCOSE; Start 01/30/17 at 05:00 Glucose (Glutose) 15 gm Q15M PRN BUCCAL DECREASED GLUCOSE; Start 01/30/17 at 05 :00 Nitroglycerin (Nitroglycerin (Sl Tab) 0.4 Mg) 1 tab [id number] PRN SL CHEST PAIN ; Start 01/30/17 at 05:30 Heparin Sodium (Porcine) (Heparin (5000 Units/0.5 ml)) 5,000 unit Q8 SC Last administered on 02/10/17 14:12; Admin Dose 5,000 UNIT; Start 02/01/17 at 18:00 ; Status Future Hold Metoprolol Tartrate (Lopressor) 12.5 mg BID PRN PO BP>130 systolic; Start 02/02 at 12:00 Colchicine (Colchicine) 0.6 mg DAILY PO Last administered on 02/15/17 08:46; Admin Dose 0.6 MG; Start 02/03/17 at 09:00 Miscellaneous Information (Pending [facility]) This patient deleon... PRN PRN XX WOUND CARE; Start 02/02/17 at 17:30 Nystatin (Nystatin Powder) 1 applic BID TOP Last administered on 02/15/17 08:46 ; Admin Dose 1 APPLIC; Start 02/02/17 at 21:00 Hydromorphone HCl (Dilaudid) 1 mg Q6H PRN IV PAIN Last administered on 03:46; Admin Dose 1 MG; Start 02/04/17 at 14:30 Senna (Senokot) 2 tab BID PO Last administered on 02/15/17 08:46; Admin Dose 2 TAB; Start 02/05/17 at 13:00 Ferrous Gluconate (Fergon) 325 mg TID PO Last administered on 02/15/17 13:11; Admin Dose 325 MG; Start 02/06/17 at 13:00 Loratadine (Claritin) 10 mg DAILY PO Last administered on 02/15/17 08:45; Admin Dose 10 MG; Start 02/09/17 at 14:00 Acetaminophen/ Hydrocodone Bitart ([place] (5/325)) 1 tab Q6H PRN PO PAIN LEVEL 6 -10; Start 02/11/17 at 12:30 Ondansetron HCl 4 mg 4 mg Q6H PRN IV NAUSEA AND/OR VOMITING; Start 02/11/17 at 12:30 Propofol (Diprivan) 100 ml @ 3.672 mls/ hr Q12H IV Last administered on 06:50; Admin Dose 33.048 MLS/HR; Start 02/11/17 at 13:30 Hydromorphone HCl (Dilaudid) 1 mg Q4H PRN IV PAIN Last administered on 09:38; Admin Dose 1 MG; Start 02/11/17 at 20:30 Methylprednisolone Sodium Succinate (Solu-Medrol) 40 mg Q12 IV Last administered on 02/15/17 08:45; Admin Dose 40 MG; Start 02/12/17 at 13:30 Furosemide (Lasix) 40 mg DAILY IV Last administered on 02/15/17 08:45; Admin Dose 40 MG; Start 02/14/17 at 09:30 Procedures Procedures PROCEDURE: XR Chest. CLINICAL INDICATION: Pneumonia, congestive heart failure TECHNIQUE: Single frontal view of the chest was obtained. COMPARISON: Chest x-ray from 02/14/2017 FINDINGS: The tracheostomy tube, enteric tube, and left-sided PICC line are unchanged in position. There is stable cardiomegaly and low lung volumes with increased prominence of interstitial markings, likely due to a combination of worsening congestive changes and vascular crowding. There are stable small bilateral pleural effusions and retrocardiac opacity due to atelectasis, infiltrate, and / or effusion. IMPRESSION: Stable low lung volumes and cardiomegaly with increased prominence of interstitial markings, likely due to a combination of worsening congestive changes and vascular crowding. Stable small bilateral pleural effusions and retrocardiac opacity. RPTAT: ALBERT KRAUS MD Feb 15, 2017 20:58
[2017-02-16] VITALS (53 sets, daily range): BP systolic 127–148; BP diastolic 61–89; PULSE 42–79; RESP 11–28
[2017-02-16] MEDS: ACCU-CHEK XX SCH (01:46)
[2017-02-16 05:12] LABS: ABNORMAL IP MESSAGE 1; HEMATOCRIT 36.1 % (37.0-47.0); HEMOGLOBIN 10.4 g/dl (12.0-16.0); LYMPHOCYTES # 0.9 10^3/ul (0.8-2.9); LYMPHOCYTES % 9.3 % (15.0-51.0); MEAN CORPUSCULAR HEMOGLOBIN 22.5 pg (29.0-33.0); MEAN CORPUSCULAR HGB CONC 28.8 g/dl (32.0-37.0); MEAN PLATELET VOLUME 8.9 fl (7.4-10.4); MONOCYTE # 0.4 10^3/ul (0.3-0.9); MONOCYTES % 4.3 % (0.0-11.0); PLATELET COUNT 320 10^3/UL (140-415); RED BLOOD COUNT 4.63 10^6/ul (4.20-5.40); RED CELL DISTRIBUTION WIDTH 18.6 % (11.5-14.5); WHITE BLOOD COUNT 9.3 10^3/ul (4.8-10.8)
[2017-02-16 05:15] LABS: POSITIVE DIFF @See below
[2017-02-16 05:37] LABS: CREATININE 0.92 mg/dl (0.44-1.00); POTASSIUM 4.5 mmol/L (3.5-5.1)
[2017-02-16] MEDS: INSULIN ASPART [NOVOLOG] 3 ML PEN SC SCH ×4 (07:35→21:00)
--- NOTE | 2017-02-16 07:44 | RADRPT ---
PROCEDURE: Chest Radiograph. CLINICAL INDICATION: Pneumonia. CHF. TECHNIQUE: Single frontal chest radiograph. COMPARISON: Chest radiograph 02/15/2017 FINDINGS: An endotracheal tube is no longer visualized and is presumably been removed. A nasogastric tube jennie ins in place with distal tip coursing below the inferior portions of the image, presumably within th e stomach. A left subclavian line or left upper extremity PICC is unchanged. The heart is enlarged. There is persistent central vascular congestion, stable compared to prior study. Diffuse interstiti al opacities with basilar predominance are unchanged likely reflective of pulmonary edema. The lung bases are unchanged likely representing small pleural effusions with adjacent atelectasis/infiltrate . The bones are intact. IMPRESSION: 1. Removal of endotracheal tube. 2. Otherwise stable radiographic appearance of chest compared to 02/15/2017. RPTAT: HJBF .Praneeth Guallpa MD, MD Date Time Electronically viewed and signed by .Praneeth Guallpa MD, on 02/16/2017 07:44 .B/
[2017-02-16 08:36] LABS: AADO2 Arterial 71.3 mmHg (7.0-24.0); Allen Test ACCEPTAB; Arterial Base Excess 4.7 mmol/L (-3.0-3); Arterial COHb 0.4 % (0.0-3.0); Arterial Fraction of Oxyhgb 95.6 % (93.0-99.0); Arterial HCO3 29.7 mmol/L (22.0-26.0); Arterial MetHb 0.3 % (0.0-1.5); Arterial Total Hemglobin 11.8 g/dl (12.0-18.0); MODE NASAL CANNULA
[2017-02-16] MEDS: DOCUSATE SODIUM 100 MG CAP PO SCH ×2 (08:51→21:00)
[2017-02-16] MEDS: FERROUS GLUCONATE (EC) 325 MG TAB PO SCH ×3 (08:51→21:55)
[2017-02-16] MEDS: COLCHICINE 0.6 MG TAB PO SCH (08:51)
[2017-02-16] MEDS: SENNA TAB PO SCH ×2 (08:51→21:00)
[2017-02-16] MEDS: CALCIUM CARBONATE 500 MG CHEW TAB PO SCH ×3 (08:51→18:35)
[2017-02-16] MEDS: METHYLPREDNISOLONE 40 MG INJ IV SCH ×2 (08:51→21:54)
[2017-02-16] MEDS: GABAPENTIN 100 MG CAP PO SCH ×2 (08:52→21:54)
[2017-02-16] MEDS: FUROSEMIDE 40 MG INJ IV SCH (08:52)
[2017-02-16] MEDS: LORATADINE 10 MG TAB PO SCH (08:54)
[2017-02-16] MEDS: NYSTATIN 30 GM POWDER BTL TOP SCH ×2 (09:02→21:55)
--- NOTE | 2017-02-16 09:10 | PN ---
Date/Time of Note Date/Time of Note DATE: 02/16/17 TIME: 09:07 Assessment/Plan VTE Prophylaxis VTE Prophylaxis Intervention: SCD's Lines/Catheters IV [facility]ter Type (from [facility]): PICC Line Central line still needed: Yes Urinary Cath still in place: Yes Reason Cath still needed: other (indicate) Assessment/Plan Chief Complaint/Hosp Course 1. Moderate to large pericardial effusion. S/P thoracotomy and pericardiocentesis on 02/11/2017. S/P removal of chest tube on 02/14/2017. Continue colchicine. Needs to be started on aspirin or other NSAIDs once cleared by cardiac surgery. Etiology of the pericardial effusion could be idiopathic. Pericardial fluid culture has been negative. No evidence of any autoimmune process such as lupus. 2. Acute respiratory failure. Hypoxic and hypercapnic. The patient has known history of pulmonary embolism. The patient not a candidate for a CT angiogram because of the heavy weight. VQ scan was ordered. The patient could not tolerate VQ scan because of orthopnea. B/L LE venous Doppler negative for any DVT . Being followed by Pulmonology. Intubated S/P surgery. Status post extubation on 02/15/2017. 3. Essential hypertension. Continue antihypertensives. 4. Depression. Off antidepressants. 5. Type 2 diabetes mellitus. Will hold the metformin because of worsening renal function. Continue sliding scale insulin. 6. Acute kidney injury. Resolved. Will use nephrotoxic medications cautiously. Nephrology following. 7. Microcytic, hypochromic anemia. Underlying iron deficiency. Continue the patient on iron supplements. 8. Obesity. BMI of 46.3 kg/m. 10. Fluids, electrolytes, and nutrition. To be started on a diet after speech therapy evaluation. 11. DVT prophylaxis. B/L SCDs. 12. Plan. Speech therapy evaluation. May transfer the patient out of the intensive care unit to telemetry floor today if cleared by consultants. Case discussed with Dr. Ramirez. Critical Care time: 35 minutes. Problems: Subjective 24 Hr Interval Summary Free Text/Dictation The patient was extubated on 02/15/2017. Denies any complaints at this time except for minimal chest wall pain. Exam/Review of Systems Vital Signs Vitals Vital Signs Date Time Temp Pulse Resp B/P Pulse Ox O2 Delivery O2 Flow Rate FiO2 02/16/17 08:00 54 02/16/17 06:00 24 133/74 97 Nasal Cannula 9/6/17 04:00 98.4 02/16/17 02:07 3.0 02/15/17 09:40 40 Intake and Output 02/15/17 02/15/17 02/16/17 15:00 23:00 07:00 Intake Total 103 ml 30 ml 0 ml Output Total 6000 ml 700 ml 443 ml Balance -5897 ml -670 ml -443 ml Exam General: Morbidly obese 46 year-old female lying in bed orally intubated. HEENT: Normocephalic, atraumatic. Eyes: Anicteric sclerae, conjunctivae clear. ENT: Nasal septum midline, oral mucosa is dry. Neck supple, no JVD noticed. Respiratory: Bilaterally diminished breath sounds. No use of accessory muscles of respiration. Cardiovascular: S1, S2 heard. Distant heart sounds Abdomen: Soft, nontender, and nondistended. Bowel sounds positive in all 4 quadrants. Genitourinary: Deferred. Extremities: No cyanosis, no clubbing, no edema. Peripheral pulses palpable. Neurologic: Awake alert, and oriented. Skin: Normal skin turgor. No skin rashes. Results Result Diagram: 02/16/17 0450 02/16/17 0450 Results 24 hrs Laboratory Tests Test 02/15/17 10:15 02/15/17 12:34 02/15/17 16:58 02/15/17 21:58 Blood Gas Specimen Source Blood arterial Arterial Blood Date Drawn 02/15/2017 10:25:45 AM Arterial Blood pH (Temp corrected) 7.430 Arterial Blood pCO2 (Temp correct) 44.1 Arterial Blood pO2 (Temp corrected) 92.1 Arterial Blood HCO3 28.6 H Arterial Blood Base Excess 3.8 H Arterial Blood Oxygen Saturation 96.5 Kareem Test N/A Arterial Blood Gas Puncture Site Right Brachial Arterial Blood Carboxyhemoglobin 0.1 Arterial Blood Methemoglobin 0.3 Blood Gas A-a O2 Differential 142.4 H Oxyhemoglobin Percent 96.1 Total Hemoglobin 12.0 Blood Gas Temperature 37.0 Blood Gas Actual Respiration Rate 24 Blood Gas Modality VENT - CPAP FiO2 40.0 Blood Gas Low PEEP Setting 5.0 Blood Gas Notified Whom TM Blood Gas Notified Time 02/15/2017 10:34:20 AM Bedside Glucose 125 131 103 Test 02/16/17 04:50 02/16/17 07:00 02/16/17 07:47 White Blood Count 9.3 Red Blood Count 4.63 Hemoglobin 10.4 L Hematocrit 36.1 L Mean Corpuscular Volume 78.0 L Mean Corpuscular Hemoglobin 22.5 L Mean Corpuscular Hemoglobin Concent 28.8 L Red Cell Distribution Width 18.6 H Platelet Count 320 Mean Platelet Volume 8.9 Neutrophils % 86.0 H Lymphocytes % 9.3 L Monocytes % 4.3 Eosinophils % 0.0 Basophils % 0.0 Nucleated Red Blood Cells % 0.0 Neutrophils # (Manual) 8.0 H Lymphocytes # 0.9 Monocytes # 0.4 Eosinophils # 0.0 Basophils # 0.0 Nucleated Red Blood Cells # 0.0 Sodium Level 143 Potassium Level 4.5 Chloride Level 105 Carbon Dioxide Level 32 H Anion Gap 11 Blood Urea Nitrogen 26 H Creatinine 0.92 Glucose Level 125 Calcium Level 9.0 Phosphorus Level 5.0 H Magnesium Level 2.0 Blood Gas Specimen Source Blood arterial Arterial Blood Date Drawn 02/16/2017 7:40:57 AM Arterial Blood pH (Temp corrected) 7.428 Arterial Blood pCO2 (Temp correct) 46.0 H Arterial Blood pO2 (Temp corrected) 88.6 Arterial Blood HCO3 29.7 H Arterial Blood Base Excess 4.7 H Arterial Blood Oxygen Saturation 96.3 Kareem Test ACCEPTAB Arterial Blood Gas Puncture Site Right Radial Arterial Blood Carboxyhemoglobin 0.4 Arterial Blood Methemoglobin 0.3 Blood Gas A-a O2 Differential 71.3 H Oxyhemoglobin Percent 95.6 Total Hemoglobin 11.8 L Blood Gas Temperature 37.0 Blood Gas Modality NASAL CANNULA FiO2 30.0 Blood Gas Notified Whom JLD Blood Gas Notified Time 02/16/2017 8:35:55 AM Bedside Glucose 111 Medications Medications Current Medications Lorazepam (Ativan) 0.5 mg Q8H PRN PO ANXIETY; Start 01/30/17 at 05:00 Acetaminophen (Tylenol Tab) 650 mg Q6H PRN PO PAIN LEVEL 1-3 OR FEVER Last administered on 01/30/17 12:04; Admin Dose 650 MG; Start 01/30/17 at 05:00 Diagnostic Test (Pha) (Accu-Chek) 1 ea 02 XX Last administered on 02/05/17 02: 00; Admin Dose 1 EA; Start 01/31/17 at 02:00 Alprazolam (Xanax) 1 mg QHS PRN PO ANXIETY; Start 01/30/17 at 05:00 Benazepril HCl (Lotensin) 40 mg DAILY PO Last administered on 01/31/17 08:08; Admin Dose 40 MG; Start 01/30/17 at 09:00; Status Future Hold Docusate Sodium (Colace) 100 mg BID PO Last administered on 02/16/17 08:51; Admin Dose 100 MG; Start 01/30/17 at 09:00 Gabapentin (Neurontin) 100 mg BID PO Last administered on 02/16/17 08:52; Admin Dose 100 MG; Start 01/30/17 at 09:00 Acetaminophen/ Hydrocodone Bitart ([place] (10325)) 1 tab Q6H PRN PO PAIN Last administered on 02/04/17 02:49; Admin Dose 1 TAB; Start 01/30/17 at 05:00 Miscellaneous Information 1 ea NOTE XX ; Start 01/30/17 at 05:00 Glucose (Glutose) 15 gm Q15M PRN PO DECREASED GLUCOSE; Start 01/30/17 at 05:00 Glucose (Glutose) 22.5 gm Q15M PRN PO DECREASED GLUCOSE; Start 01/30/17 at 05: 00 Dextrose (D50w Syringe) 25 ml Q15M PRN IV DECREASED GLUCOSE; Start 01/30/17 at 05:00 Dextrose (D50w Syringe) 50 ml Q15M PRN IV DECREASED GLUCOSE; Start 01/30/17 at 05:00 Glucagon (Glucagen) 1 mg Q15M PRN IM DECREASED GLUCOSE; Start 01/30/17 at 05:00 Glucose (Glutose) 15 gm Q15M PRN BUCCAL DECREASED GLUCOSE; Start 01/30/17 at 05 :00 Nitroglycerin (Nitroglycerin (Sl Tab) 0.4 Mg) 1 tab [id number] PRN SL CHEST PAIN ; Start 01/30/17 at 05:30 Heparin Sodium (Porcine) (Heparin (5000 Units/0.5 ml)) 5,000 unit Q8 SC Last administered on 02/10/17 14:12; Admin Dose 5,000 UNIT; Start 02/01/17 at 18:00 ; Status Future Hold Metoprolol Tartrate (Lopressor) 12.5 mg BID PRN PO BP>130 systolic; Start 02/02 at 12:00 Colchicine (Colchicine) 0.6 mg DAILY PO Last administered on 02/16/17 08:51; Admin Dose 0.6 MG; Start 02/03/17 at 09:00 Miscellaneous Information [facility] This patient deleon... PRN PRN XX WOUND CARE; Start 02/02/17 at 17:30 Nystatin (Nystatin Powder) 1 applic BID TOP Last administered on 02/16/17 09:02 ; Admin Dose 1 APPLIC; Start 02/02/17 at 21:00 Hydromorphone HCl (Dilaudid) 1 mg Q6H PRN IV PAIN Last administered on 03:46; Admin Dose 1 MG; Start 02/04/17 at 14:30 Senna (Senokot) 2 tab BID PO Last administered on 02/16/17 08:51; Admin Dose 2 TAB; Start 02/05/17 at 13:00 Ferrous Gluconate (Fergon) 325 mg TID PO Last administered on 02/16/17 08:51; Admin Dose 325 MG; Start 02/06/17 at 13:00 Loratadine (Claritin) 10 mg DAILY PO Last administered on 02/16/17 08:54; Admin Dose 10 MG; Start 02/09/17 at 14:00 Acetaminophen/ Hydrocodone Bitart ([place] (5/325)) 1 tab Q6H PRN PO PAIN LEVEL 6 -10; Start 02/11/17 at 12:30 Ondansetron HCl 4 mg 4 mg Q6H PRN IV NAUSEA AND/OR VOMITING; Start 02/11/17 at 12:30 Propofol (Diprivan) 100 ml @ 3.672 mls/ hr Q12H IV Last administered on 06:50; Admin Dose 33.048 MLS/HR; Start 02/11/17 at 13:30 Hydromorphone HCl (Dilaudid) 1 mg Q4H PRN IV PAIN Last administered on 09:38; Admin Dose 1 MG; Start 02/11/17 at 20:30 Methylprednisolone Sodium Succinate (Solu-Medrol) 40 mg Q12 IV Last administered on 02/16/17 08:51; Admin Dose 40 MG; Start 02/12/17 at 13:30 Furosemide (Lasix) 40 mg DAILY IV Last administered on 02/16/17t 08:52; Admin Dose 40 MG; Start 02/14/17 at 09:30 SOLITARIO LAMBERT NP Feb 16, 2017 09:10
--- NOTE | 2017-02-16 10:34 | CONS ---
Date/Time of Note Date/Time of Note DATE: 02/16/17 TIME: 10:32 Consult Date/Type/Reason Admit Date/Time Jan 30, 2017 at 02:47 Initial Consult Date 02/01/17 Type of Consultation: Pulm Subjective Extubated, comfortable overnight, failed STeval this morning. Objective Vital Signs Date Time Temp Pulse Resp B/P Pulse Ox O2 Delivery O2 Flow Rate FiO2 02/16/17 08:00 54 02/16/17 06:00 24 133/74 97 Nasal Cannula 02/16/17 04:00 98.4 02/16/17 02:07 3.0 02/15/17 09:40 40 Intake and Output 02/15/17 02/15/17 02/16/17 15:00 23:00 07:00 Intake Total 103 ml 30 ml 0 ml Output Total 6000 ml 700 ml 443 ml Balance -5897 ml -670 ml -443 ml Exam GENERAL: Morbidly obese lady on nasal cannula. VITAL SIGNS: per chart NECK: Supple. No JVD or lymphadenopathy. CARDIAC EXAM: S1, S2. No added sounds or murmurs. CHEST: Diminished air entry bilaterally, ABDOMEN: Soft, nontender. No guarding or rebound. EXTREMITIES: No cyanosis, clubbing edema +1 NEUROLOGIC: No neurological deficits. Results/Medications Result Diagram: 02/16/17 0450 02/16/17 0450 Results 24 hrs Laboratory Tests Test 02/15/17 12:34 02/15/17 16:58 02/15/17 21:58 02/16/17 04:50 Bedside Glucose 125 131 103 White Blood Count 9.3 Red Blood Count 4.63 Hemoglobin 10.4 L Hematocrit 36.1 L Mean Corpuscular Volume 78.0 L Mean Corpuscular Hemoglobin 22.5 L Mean Corpuscular Hemoglobin Concent 28.8 L Red Cell Distribution Width 18.6 H Platelet Count 320 Mean Platelet Volume 8.9 Neutrophils % 86.0 H Lymphocytes % 9.3 L Monocytes % 4.3 Eosinophils % 0.0 Basophils % 0.0 Nucleated Red Blood Cells % 0.0 Neutrophils # (Manual) 8.0 H Lymphocytes # 0.9 Monocytes # 0.4 Eosinophils # 0.0 Basophils # 0.0 Nucleated Red Blood Cells # 0.0 Sodium Level 143 Potassium Level 4.5 Chloride Level 105 Carbon Dioxide Level 32 H Anion Gap 11 Blood Urea Nitrogen 26 H Creatinine 0.92 Glucose Level 125 Calcium Level 9.0 Phosphorus Level 5.0 H Magnesium Level 2.0 Test 02/16/17 07:00 02/16/17 07:47 Blood Gas Specimen Source Blood arterial Arterial Blood Date Drawn 02/16/2017 7:40:57 AM Arterial Blood pH (Temp corrected) 7.428 Arterial Blood pCO2 (Temp correct) 46.0 H Arterial Blood pO2 (Temp corrected) 88.6 Arterial Blood HCO3 29.7 H Arterial Blood Base Excess 4.7 H Arterial Blood Oxygen Saturation 96.3 Kareem Test ACCEPTAB Arterial Blood Gas Puncture Site Right Radial Arterial Blood Carboxyhemoglobin 0.4 Arterial Blood Methemoglobin 0.3 Blood Gas A-a O2 Differential 71.3 H Oxyhemoglobin Percent 95.6 Total Hemoglobin 11.8 L Blood Gas Temperature 37.0 Blood Gas Modality NASAL CANNULA FiO2 30.0 Blood Gas Notified Whom JLD Blood Gas Notified Time 02/16/2017 8:35:55 AM Bedside Glucose 111 Medications Current Medications Lorazepam (Ativan) 0.5 mg Q8H PRN PO ANXIETY; Start 01/30/17 at 05:00 Acetaminophen (Tylenol Tab) 650 mg Q6H PRN PO PAIN LEVEL 1-3 OR FEVER Last administered on 01/30/17 12:04; Admin Dose 650 MG; Start 01/30/17 at 05:00 Diagnostic Test (Pha) (Accu-Chek) 1 ea 02 XX Last administered on 02/05/17 02: 00; Admin Dose 1 EA; Start 01/31/17 at 02:00 Alprazolam (Xanax) 1 mg QHS PRN PO ANXIETY; Start 01/30/17 at 05:00 Benazepril HCl (Lotensin) 40 mg DAILY PO Last administered on 01/31/17 08:08; Admin Dose 40 MG; Start 01/30/17 at 09:00; Status Future Hold Docusate Sodium (Colace) 100 mg BID PO Last administered on 02/16/17 08:51; Admin Dose 100 MG; Start 01/30/17 at 09:00 Gabapentin (Neurontin) 100 mg BID PO Last administered on 02/16/17 08:52; Admin Dose 100 MG; Start 01/30/17 at 09:00 Acetaminophen/ Hydrocodone Bitart ([place] (10/325)) 1 tab Q6H PRN PO PAIN Last administered on 02/04/17 02:49; Admin Dose 1 TAB; Start 01/30/17 at 05:00 Miscellaneous Information 1 ea NOTE XX ; Start 01/30/17 at 05:00 Glucose (Glutose) 15 gm Q15M PRN PO DECREASED GLUCOSE; Start 01/30/17 at 05:00 Glucose (Glutose) 22.5 gm Q15M PRN PO DECREASED GLUCOSE; Start 01/30/17 at 05: 00 Dextrose (D50w Syringe) 25 ml Q15M PRN IV DECREASED GLUCOSE; Start 01/30/17 at 05:00 Dextrose (D50w Syringe) 50 ml Q15M PRN IV DECREASED GLUCOSE; Start 01/30/17 at 05:00 Glucagon (Glucagen) 1 mg Q15M PRN IM DECREASED GLUCOSE; Start 01/30/17 at 05:00 Glucose (Glutose) 15 gm Q15M PRN BUCCAL DECREASED GLUCOSE; Start 01/30/17 at 05 :00 Nitroglycerin (Nitroglycerin (Sl Tab) 0.4 Mg) 1 tab [id number] PRN SL CHEST PAIN ; Start 01/30/17 at 05:30 Heparin Sodium (Porcine) (Heparin (5000 Units/0.5 ml)) 5,000 unit Q8 SC Last administered on 02/10/17 14:12; Admin Dose 5,000 UNIT; Start 02/01/17 at 18:00 ; Status Future Hold Metoprolol Tartrate (Lopressor) 12.5 mg BID PRN PO BP>130 systolic; Start 02/02 at 12:00 Colchicine (Colchicine) 0.6 mg DAILY PO Last administered on 02/16/17 08:51; Admin Dose 0.6 MG; Start 02/03/17 at 09:00 Miscellaneous Information [facility] This patient deleon... PRN PRN XX WOUND CARE; Start 02/02/17 at 17:30 Nystatin (Nystatin Powder) 1 applic BID TOP Last administered on 02/16/17 09:02 ; Admin Dose 1 APPLIC; Start 02/02/17 at 21:00 Hydromorphone HCl (Dilaudid) 1 mg Q6H PRN IV PAIN Last administered on 03:46; Admin Dose 1 MG; Start 02/04/17 at 14:30 Senna (Senokot) 2 tab BID PO Last administered on 02/16/17 08:51; Admin Dose 2 TAB; Start 02/05/17 at 13:00 Ferrous Gluconate (Fergon) 325 mg TID PO Last administered on 02/16/17 08:51; Admin Dose 325 MG; Start 02/06/17 at 13:00 Loratadine (Claritin) 10 mg DAILY PO Last administered on 02/16/17 08:54; Admin Dose 10 MG; Start 02/09/17 at 14:00 Acetaminophen/ Hydrocodone Bitart ([place] (5/325)) 1 tab Q6H PRN PO PAIN LEVEL 6 -10; Start 02/11/17 at 12:30 Ondansetron HCl 4 mg 4 mg Q6H PRN IV NAUSEA AND/OR VOMITING; Start 02/11/17 at 12:30 Propofol (Diprivan) 100 ml @ 3.672 mls/ hr Q12H IV Last administered on 06:50; Admin Dose 33.048 MLS/HR; Start 02/11/17 at 13:30 Hydromorphone HCl (Dilaudid) 1 mg Q4H PRN IV PAIN Last administered on 09:38; Admin Dose 1 MG; Start 02/11/17 at 20:30 Methylprednisolone Sodium Succinate (Solu-Medrol) 40 mg Q12 IV Last administered on 02/16/17 08:51; Admin Dose 40 MG; Start 02/12/17 at 13:30 Furosemide (Lasix) 40 mg DAILY IV Last administered on 02/16/17 08:52; Admin Dose 40 MG; Start 02/14/17 at 09:30 Assessment/Plan Chief Complaint/Hosp Course IMP: 1. Hypoxemic hypercapnic respiratory failure. Concern for airway edema requiring prolonged mechanical ventilation following pericardial drainage. Pericardial drain now removed.Now extubated. 2. History of pulmonary embolism. Underlying pulmonary edema on chest x-ray. 3. History of psychiatric disorder. 4. SHIRLEY/OHS RECS: 1. Encourage nocturnal NIPPV. 2. Cardiac recs. 3. Monitor renal function. 4. Speech therapy evaluation postextubation. 5. Continue DVT and GI prophylaxis 6. Continue Lasix. Critical care time 40 minutes. keep in icu. Problems: TALIA ACEVEDO MD, [facility] Feb 16, 2017 10:34
[2017-02-16] MEDS: PROPOFOL 100 ML IV SCH (12:15)
--- NOTE | 2017-02-16 13:49 | CONS ---
Date/Time of Note Date/Time of Note DATE: 02/16/17 TIME: 13:47 Assessment/Plan Assessment/Plan Additional Assessment/Plan Pericardial effusion s/p pericardial window 02/11/17 Preserved ejection fraction Respiratory failure, extubated Supermorbid obesity Obstructive sleep apnea -As mentioned yesterday, I did discuss with our pathology colleagues regarding analyzing further pericardial fluid given concern for malignancy. Results are currently pending. Continue diuretics as blood pressure and renal function permits. Repeat echocardiogram with trace to small amount of pericardial fluid Consultation Date/Type/Reason Admit Date/Time Jan 30, 2017 at 02:47 Initial Consult Date 02/01/17 Type of Consultation: cv 24 HR Interval Summary Free Text/Dictation Feeling better, denies shortness of breath or dizziness Exam/Review of Systems Vital Signs Vitals Vital Signs Date Time Temp Pulse Resp B/P Pulse Ox O2 Delivery O2 Flow Rate FiO2 02/16/17 12:30 52 21 97 02/16/17 12:00 97.4 02/16/17 11:00 139/76 02/16/17 10:42 3.0 02/16/17 08:00 Nasal Cannula 02/15/17 09:40 40 Intake and Output 02/15/17 02/15/17 02/16/17 15:00 23:00 07:00 Intake Total 103 ml 30 ml 0 ml Output Total 6000 ml 700 ml 443 ml Balance -5897 ml -670 ml -443 ml Exam No apparent distress Constitutional: alert, obese, oriented Head: normocephalic Respiratory: other (Coarse breath sounds bilaterally, no wheezing) Cardiovascular: other (S1-S2 heard), regular rate and rhythm Gastrointestinal: bowel sounds, non-tender, soft Extremities: edema Results Result Diagram: 02/16/17 0450 02/16/17 0450 Results 24 hrs Laboratory Tests Test 02/15/17 16:58 02/15/17 21:58 02/16/17 04:50 02/16/17 07:00 Bedside Glucose 131 103 White Blood Count 9.3 Red Blood Count 4.63 Hemoglobin 10.4 L Hematocrit 36.1 L Mean Corpuscular Volume 78.0 L Mean Corpuscular Hemoglobin 22.5 L Mean Corpuscular Hemoglobin Concent 28.8 L Red Cell Distribution Width 18.6 H Platelet Count 320 Mean Platelet Volume 8.9 Neutrophils % 86.0 H Lymphocytes % 9.3 L Monocytes % 4.3 Eosinophils % 0.0 Basophils % 0.0 Nucleated Red Blood Cells % 0.0 Neutrophils # (Manual) 8.0 H Lymphocytes # 0.9 Monocytes # 0.4 Eosinophils # 0.0 Basophils # 0.0 Nucleated Red Blood Cells # 0.0 Sodium Level 143 Potassium Level 4.5 Chloride Level 105 Carbon Dioxide Level 32 H Anion Gap 11 Blood Urea Nitrogen 26 H Creatinine 0.92 Glucose Level 125 Calcium Level 9.0 Phosphorus Level 5.0 H Magnesium Level 2.0 Blood Gas Specimen Source Blood arterial Arterial Blood Date Drawn 02/16/2017 7:40:57 AM Arterial Blood pH (Temp corrected) 7.428 Arterial Blood pCO2 (Temp correct) 46.0 H Arterial Blood pO2 (Temp corrected) 88.6 Arterial Blood HCO3 29.7 H Arterial Blood Base Excess 4.7 H Arterial Blood Oxygen Saturation 96.3 Kareem Test ACCEPTAB Arterial Blood Gas Puncture Site Right Radial Arterial Blood Carboxyhemoglobin 0.4 Arterial Blood Methemoglobin 0.3 Blood Gas A-a O2 Differential 71.3 H Oxyhemoglobin Percent 95.6 Total Hemoglobin 11.8 L Blood Gas Temperature 37.0 Blood Gas Modality NASAL CANNULA FiO2 30.0 Blood Gas Notified Whom JLD Blood Gas Notified Time 02/16/2017 8:35:55 AM Test 02/16/17 07:47 02/16/17 12:12 Bedside Glucose 111 125 Medications Medications Current Medications Lorazepam (Ativan) 0.5 mg Q8H PRN PO ANXIETY; Start 01/30/17 at 05:00 Acetaminophen (Tylenol Tab) 650 mg Q6H PRN PO PAIN LEVEL 1-3 OR FEVER Last administered on 01/30/17 12:04; Admin Dose 650 MG; Start 01/30/17 at 05:00 Diagnostic Test (Pha) (Accu-Chek) 1 ea 02 XX Last administered on 02/05/17 02: 00; Admin Dose 1 EA; Start 01/31/17 at 02:00 Alprazolam (Xanax) 1 mg QHS PRN PO ANXIETY; Start 01/30/17 at 05:00 Benazepril HCl (Lotensin) 40 mg DAILY PO Last administered on 01/31/17 08:08; Admin Dose 40 MG; Start 01/30/17 at 09:00; Status Future Hold Docusate Sodium (Colace) 100 mg BID PO Last administered on 02/16/17 08:51; Admin Dose 100 MG; Start 01/30/17 at 09:00 Gabapentin (Neurontin) 100 mg BID PO Last administered on 02/16/17 08:52; Admin Dose 100 MG; Start 01/30/17 at 09:00 Acetaminophen/ Hydrocodone Bitart ([place] (10/325)) 1 tab Q6H PRN PO PAIN Last administered on 02/04/17 02:49; Admin Dose 1 TAB; Start 01/30/17 at 05:00 Miscellaneous Information 1 ea NOTE XX ; Start 01/30/17 at 05:00 Glucose (Glutose) 15 gm Q15M PRN PO DECREASED GLUCOSE; Start 01/30/17 at 05:00 Glucose (Glutose) 22.5 gm Q15M PRN PO DECREASED GLUCOSE; Start 01/30/17 at 05: 00 Dextrose (D50w Syringe) 25 ml Q15M PRN IV DECREASED GLUCOSE; Start 01/30/17 at 05:00 Dextrose (D50w Syringe) 50 ml Q15M PRN IV DECREASED GLUCOSE; Start 01/30/17 at 05:00 Glucagon (Glucagen) 1 mg Q15M PRN IM DECREASED GLUCOSE; Start 01/30/17 at 05:00 Glucose (Glutose) 15 gm Q15M PRN BUCCAL DECREASED GLUCOSE; Start 01/30/17 at 05 :00 Nitroglycerin (Nitroglycerin (Sl Tab) 0.4 Mg) 1 tab [id number] PRN SL CHEST PAIN ; Start 01/30/17 at 05:30 Heparin Sodium (Porcine) (Heparin (5000 Units/0.5 ml)) 5,000 unit Q8 SC Last administered on 02/10/17 14:12; Admin Dose 5,000 UNIT; Start 02/01/17 at 18:00 ; Status Future Hold Metoprolol Tartrate (Lopressor) 12.5 mg BID PRN PO BP>130 systolic; Start 02/02 at 12:00 Colchicine (Colchicine) 0.6 mg DAILY PO Last administered on 02/16/17 08:51; Admin Dose 0.6 MG; Start 02/03/17 at 09:00 Miscellaneous Information (Pending [facility] Order For Wound Care) This patient deleon... PRN PRN XX WOUND CARE; Start 02/02/17 at 17:30 Nystatin (Nystatin Powder) 1 applic BID TOP Last administered on 02/16/17 09:02 ; Admin Dose 1 APPLIC; Start 02/02/17 at 21:00 Hydromorphone HCl (Dilaudid) 1 mg Q6H PRN IV PAIN Last administered on 03:46; Admin Dose 1 MG; Start 02/04/17 at 14:30 Senna (Senokot) 2 tab BID PO Last administered on 02/16/17 08:51; Admin Dose 2 TAB; Start 02/05/17 at 13:00 Ferrous Gluconate (Fergon) 325 mg TID PO Last administered on 02/16/17 12:15; Admin Dose 325 MG; Start 02/06/17 at 13:00 Loratadine (Claritin) 10 mg DAILY PO Last administered on 02/16/17 08:54; Admin Dose 10 MG; Start 02/09/17 at 14:00 Acetaminophen/ Hydrocodone Bitart ([place] (5/325)) 1 tab Q6H PRN PO PAIN LEVEL 6 -10; Start 02/11/17 at 12:30 Ondansetron HCl 4 mg 4 mg Q6H PRN IV NAUSEA AND/OR VOMITING; Start 02/11/17 at 12:30 Propofol (Diprivan) 100 ml @ 3.672 mls/ hr Q12H IV Last administered on 06:50; Admin Dose 33.048 MLS/HR; Start 02/11/17 at 13:30 Hydromorphone HCl (Dilaudid) 1 mg Q4H PRN IV PAIN Last administered on 09:38; Admin Dose 1 MG; Start 02/11/17 at 20:30 Methylprednisolone Sodium Succinate (Solu-Medrol) 40 mg Q12 IV Last administered on 02/16/17 08:51; Admin Dose 40 MG; Start 02/12/17 at 13:30 Furosemide (Lasix) 40 mg DAILY IV Last administered on 02/16/17 08:52; Admin Dose 40 MG; Start 02/14/17 at 09:30 Sean Gallego DO Feb 16, 2017 13:49
--- NOTE | 2017-02-16 15:56 | CONS ---
Date/Time of Note Date/Time of Note DATE: 02/16/17 TIME: 15:55 Assessment/Plan Assessment/Plan Additional Assessment/Plan 46 yo Female with 1. Chest pain. 2. Moderate pericardial effusion S/p Pericardiocentesis 3. Hypoxia 4. Essential hypertension 5. Depression. 6. Type 2 diabetes mellitus 7. Acute kidney injury- Prerenal 8. Microcytic, hypochromic anemia 9. Morbid Obesity 10. Hyperkalemia- Resolved 11. Respiratory failure on Vent Repeat renal function studies Non oliguric Will cont to follow in ICU Consultation Date/Type/Reason Admit Date/Time Jan 30, 2017 at 02:47 Initial Consult Date 02/01/17 Type of Consultation: Renal 24 HR Interval Summary Subjective hx not possible: pt critical status Exam/Review of Systems Vital Signs Vitals Vital Signs Date Time Temp Pulse Resp B/P Pulse Ox O2 Delivery O2 Flow Rate FiO2 02/16/17 12:30 52 21 97 02/16/17 12:00 97.4 02/16/17 11:00 139/76 02/16/17 10:42 3.0 02/16/17 08:00 Nasal Cannula 02/15/17 09:40 40 Intake and Output 02/15/17 02/15/17 02/16/17 15:00 23:00 07:00 Intake Total 103 ml 30 ml 0 ml Output Total 6000 ml 700 ml 443 ml Balance -5897 ml -670 ml -443 ml Results Result Diagram: 02/16/17 0450 02/16/17 0450 Results 24 hrs Laboratory Tests Test 02/15/17 16:58 02/15/17 21:58 02/16/17 04:50 02/16/17 07:00 Bedside Glucose 131 103 White Blood Count 9.3 Red Blood Count 4.63 Hemoglobin 10.4 L Hematocrit 36.1 L Mean Corpuscular Volume 78.0 L Mean Corpuscular Hemoglobin 22.5 L Mean Corpuscular Hemoglobin Concent 28.8 L Red Cell Distribution Width 18.6 H Platelet Count 320 Mean Platelet Volume 8.9 Neutrophils % 86.0 H Lymphocytes % 9.3 L Monocytes % 4.3 Eosinophils % 0.0 Basophils % 0.0 Nucleated Red Blood Cells % 0.0 Neutrophils # (Manual) 8.0 H Lymphocytes # 0.9 Monocytes # 0.4 Eosinophils # 0.0 Basophils # 0.0 Nucleated Red Blood Cells # 0.0 Sodium Level 143 Potassium Level 4.5 Chloride Level 105 Carbon Dioxide Level 32 H Anion Gap 11 Blood Urea Nitrogen 26 H Creatinine 0.92 Glucose Level 125 Calcium Level 9.0 Phosphorus Level 5.0 H Magnesium Level 2.0 Blood Gas Specimen Source Blood arterial Arterial Blood Date Drawn 02/16/2017 7:40:57 AM Arterial Blood pH (Temp corrected) 7.428 Arterial Blood pCO2 (Temp correct) 46.0 H Arterial Blood pO2 (Temp corrected) 88.6 Arterial Blood HCO3 29.7 H Arterial Blood Base Excess 4.7 H Arterial Blood Oxygen Saturation 96.3 Kareem Test ACCEPTAB Arterial Blood Gas Puncture Site Right Radial Arterial Blood Carboxyhemoglobin 0.4 Arterial Blood Methemoglobin 0.3 Blood Gas A-a O2 Differential 71.3 H Oxyhemoglobin Percent 95.6 Total Hemoglobin 11.8 L Blood Gas Temperature 37.0 Blood Gas Modality NASAL CANNULA FiO2 30.0 Blood Gas Notified Whom JLD Blood Gas Notified Time 02/16/2017 8:35:55 AM Test 02/16/17 07:47 02/16/17 12:12 Bedside Glucose 111 125 Medications Medications Current Medications Lorazepam (Ativan) 0.5 mg Q8H PRN PO ANXIETY; Start 01/30/17 at 05:00 Acetaminophen (Tylenol Tab) 650 mg Q6H PRN PO PAIN LEVEL 1-3 OR FEVER Last administered on 01/30/17 12:04; Admin Dose 650 MG; Start 01/30/17 at 05:00 Diagnostic Test (Pha) (Accu-Chek) 1 ea 02 XX Last administered on 02/05/17 02: 00; Admin Dose 1 EA; Start 01/31/17 at 02:00 Alprazolam (Xanax) 1 mg QHS PRN PO ANXIETY; Start 01/30/17 at 05:00 Benazepril HCl (Lotensin) 40 mg DAILY PO Last administered on 01/31/17 08:08; Admin Dose 40 MG; Start 01/30/17 at 09:00; Status Future Hold Docusate Sodium (Colace) 100 mg BID PO Last administered on 02/16/17 08:51; Admin Dose 100 MG; Start 01/30/17 at 09:00 Gabapentin (Neurontin) 100 mg BID PO Last administered on 02/16/17 08:52; Admin Dose 100 MG; Start 01/30/17 at 09:00 Acetaminophen/ Hydrocodone Bitart ([place] (10/325)) 1 tab Q6H PRN PO PAIN Last administered on 02/04/17 02:49; Admin Dose 1 TAB; Start 01/30/17 at 05:00 Miscellaneous Information 1 ea NOTE XX ; Start 01/30/17 at 05:00 Glucose (Glutose) 15 gm Q15M PRN PO DECREASED GLUCOSE; Start 01/30/17 at 05:00 Glucose (Glutose) 22.5 gm Q15M PRN PO DECREASED GLUCOSE; Start 01/30/17 at 05: 00 Dextrose (D50w Syringe) 25 ml Q15M PRN IV DECREASED GLUCOSE; Start 01/30/17 at 05:00 Dextrose (D50w Syringe) 50 ml Q15M PRN IV DECREASED GLUCOSE; Start 01/30/17 at 05:00 Glucagon (Glucagen) 1 mg Q15M PRN IM DECREASED GLUCOSE; Start 01/30/17 at 05:00 Glucose (Glutose) 15 gm Q15M PRN BUCCAL DECREASED GLUCOSE; Start 01/30/17 at 05 :00 Nitroglycerin (Nitroglycerin (Sl Tab) 0.4 Mg) 1 tab [id number] PRN SL CHEST PAIN ; Start 01/30/17 at 05:30 Heparin Sodium (Porcine) (Heparin (5000 Units/0.5 ml)) 5,000 unit Q8 SC Last administered on 02/10/17 14:12; Admin Dose 5,000 UNIT; Start 02/01/17 at 18:00 ; Status Future Hold Metoprolol Tartrate (Lopressor) 12.5 mg BID PRN PO BP>130 systolic; Start 02/02 at 12:00 Colchicine (Colchicine) 0.6 mg DAILY PO Last administered on 02/16/17 08:51; Admin Dose 0.6 MG; Start 02/03/17 at 09:00 Miscellaneous Information [facility] This patient deleon... PRN PRN XX WOUND CARE; Start 02/02/17 at 17:30 Nystatin (Nystatin Powder) 1 applic BID TOP Last administered on 02/16/17 09:02 ; Admin Dose 1 APPLIC; Start 02/02/17 at 21:00 Hydromorphone HCl (Dilaudid) 1 mg Q6H PRN IV PAIN Last administered on 03:46; Admin Dose 1 MG; Start 02/04/17 at 14:30 Senna (Senokot) 2 tab BID PO Last administered on 02/16/17 08:51; Admin Dose 2 TAB; Start 02/05/17 at 13:00 Ferrous Gluconate (Fergon) 325 mg TID PO Last administered on 02/16/17 12:15; Admin Dose 325 MG; Start 02/06/17 at 13:00 Loratadine (Claritin) 10 mg DAILY PO Last administered on 02/16/17 08:54; Admin Dose 10 MG; Start 02/09/17 at 14:00 Acetaminophen/ Hydrocodone Bitart ([place] (5/325)) 1 tab Q6H PRN PO PAIN LEVEL 6 -10; Start 02/11/17 at 12:30 Ondansetron HCl 4 mg 4 mg Q6H PRN IV NAUSEA AND/OR VOMITING; Start 02/11/17 at 12:30 Propofol (Diprivan) 100 ml @ 3.672 mls/ hr Q12H IV Last administered on 06:50; Admin Dose 33.048 MLS/HR; Start 02/11/17 at 13:30 Hydromorphone HCl (Dilaudid) 1 mg Q4H PRN IV PAIN Last administered on 09:38; Admin Dose 1 MG; Start 02/11/17 at 20:30 Methylprednisolone Sodium Succinate (Solu-Medrol) 40 mg Q12 IV Last administered on 02/16/17 08:51; Admin Dose 40 MG; Start 02/12/17 at 13:30 Furosemide (Lasix) 40 mg DAILY IV Last administered on 02/16/17 08:52; Admin Dose 40 MG; Start 02/14/17 at 09:30 ALBERT MARION MD Feb 16, 2017 15:56
[2017-02-17] VITALS (19 sets, daily range): BP systolic 118–148; BP diastolic 61–94; PULSE 43–80; RESP 14–23
[2017-02-17] MEDS: ACCU-CHEK XX SCH (02:00)
[2017-02-17] MEDS: PROPOFOL 100 ML IV SCH (03:17)
[2017-02-17 05:43] LABS: ABNORMAL IP MESSAGE 1; BASOPHILS % 0.1 % (0.0-2.0); HEMATOCRIT 39.4 % (37.0-47.0); HEMOGLOBIN 11.4 g/dl (12.0-16.0); LYMPHOCYTES # 0.9 10^3/ul (0.8-2.9); LYMPHOCYTES % 7.7 % (15.0-51.0); MEAN CORPUSCULAR HEMOGLOBIN 22.7 pg (29.0-33.0); MEAN CORPUSCULAR HGB CONC 28.9 g/dl (32.0-37.0); MEAN CORPUSCULAR VOLUME 78.5 fl (82.0-101.0); MONOCYTE # 0.4 10^3/ul (0.3-0.9); MONOCYTES % 3.5 % (0.0-11.0); NEUTROPHILS % 88.1 % (39.0-77.0); PLATELET COUNT 330 10^3/UL (140-415); RED BLOOD COUNT 5.02 10^6/ul (4.20-5.40); RED CELL DISTRIBUTION WIDTH 18.5 % (11.5-14.5); WHITE BLOOD COUNT 11.9 10^3/ul (4.8-10.8)
[2017-02-17 06:01] LABS: MAGNESIUM 2.1 mg/dl (1.7-2.5); PHOSPHORUS 4.9 mg/dl (2.5-4.9)
[2017-02-17 06:05] LABS: CALCIUM 9.3 mg/dl (8.4-10.2); CREATININE 0.92 mg/dl (0.44-1.00); POTASSIUM 4.4 mmol/L (3.5-5.1)
[2017-02-17 06:11] LABS: POSITIVE DIFF @See below
[2017-02-17] MEDS: INSULIN ASPART [NOVOLOG] 3 ML PEN SC SCH ×4 (07:35→20:50)
--- NOTE | 2017-02-17 08:04 | RADRPT ---
PROCEDURE: XR Chest. CLINICAL INDICATION: CHF TECHNIQUE: A single AP view of the chest was obtained. COMPARISON: Chest x-ray dated 02/16/2017 FINDINGS: The tip of the enteric tube extends below the left diaphragm. There is a left subclavian central v enous catheter with tip in the mid SVC. Lung volumes are low with compressive changes and crowding of the central pulmonary vascular marking s with bibasilar atelectasis . No focal airspace opacity, pleural effusion or pneumothorax is seen. The cardiomediastinal silhouette is mildly enlarged. The osseous structures are unremarkable. IMPRESSION: 1. Prominent pulmonary vascular markings, at least partially related to low lung volumes. Mild pul monary vascular congestion is not excluded. No significant interval change. 2. Mild cardiomegaly. 3. Tubes and lines, as described above. RPTAT: HH .Michelle Rendon MD, MD Date Time Electronically viewed and signed by .Michelle Rendon MD, on 02/17/2017 08:04 .Joann/
[2017-02-17] MEDS: CALCIUM CARBONATE 500 MG CHEW TAB PO SCH ×3 (08:08→18:31)
[2017-02-17] MEDS: GABAPENTIN 100 MG CAP PO SCH ×2 (08:09→20:51)
[2017-02-17] MEDS: COLCHICINE 0.6 MG TAB PO SCH (08:09)
[2017-02-17] MEDS: FERROUS GLUCONATE (EC) 325 MG TAB PO SCH (08:09)
[2017-02-17] MEDS: METHYLPREDNISOLONE 40 MG INJ IV SCH ×2 (08:09→20:52)
[2017-02-17] MEDS: SENNA TAB PO SCH ×2 (08:09→08:56)
[2017-02-17] MEDS: FUROSEMIDE 40 MG INJ IV SCH (08:09)
[2017-02-17] MEDS: NYSTATIN 30 GM POWDER BTL TOP SCH ×2 (08:10→20:52)
[2017-02-17] MEDS: DOCUSATE SODIUM 100 MG CAP PO SCH ×2 (08:10→08:55)
[2017-02-17] MEDS: LORATADINE 10 MG TAB PO SCH (08:51)
--- NOTE | 2017-02-17 08:52 | PN ---
Date/Time of Note Date/Time of Note DATE: 02/17/17 TIME: 08:50 Assessment/Plan VTE Prophylaxis VTE Prophylaxis Intervention: SCD's Lines/Catheters IV Catheter Type (from [facility]): PICC Line Central line still needed: Yes Urinary Cath still in place: Yes Reason Cath still needed: other (indicate) Assessment/Plan Chief Complaint/Hosp Course 1. Moderate to large pericardial effusion. S/P thoracotomy and pericardiocentesis on 02/11/2017. S/P removal of chest tube on 02/14/2017. Continue colchicine. Start NSAIDs. Etiology of the pericardial effusion could be idiopathic. Pericardial fluid culture has been negative. No evidence of any autoimmune process such as lupus. 2. Acute respiratory failure. Hypoxic and hypercapnic. The patient has known history of pulmonary embolism. The patient not a candidate for a CT angiogram because of the heavy weight. VQ scan was ordered. The patient could not tolerate VQ scan because of orthopnea. B/L LE venous Doppler negative for any DVT . Being followed by Pulmonology. Was intubated S/P surgery. Status post extubation on 02/15/2017. 3. Essential hypertension. Continue antihypertensives. 4. Depression. Off antidepressants. 5. Type 2 diabetes mellitus. Continue sliding scale insulin. 6. Acute kidney injury. Resolved. Resolved. Will use nephrotoxic medications cautiously. Nephrology following. 7. Microcytic, hypochromic anemia. Underlying iron deficiency. Continue the patient on iron supplements. 8. Obesity. BMI of 46.3 kg/m. 10. Fluids, electrolytes, and nutrition. NPO as of now until Speech Therapy reevaluation. 11. DVT prophylaxis. B/L SCDs. 12. Plan. Repeat speech therapy evaluation. May transfer the patient out of the intensive care unit to telemetry floor today if cleared by consultants. Order physical therapy evaluation. Case discussed with Dr. Urbina. Critical Care time: 35 minutes. Problems: Subjective 24 Hr Interval Summary Free Text/Dictation The patient remains stable. Complains of minimal chest wall pain. Having frequent bowel movements. Exam/Review of Systems Vital Signs Vitals Vital Signs Date Time Temp Pulse Resp B/P Pulse Ox O2 Delivery O2 Flow Rate FiO2 02/17/17 05:33 98 3.0 31 02/17/17 05:00 47 20 137/71 Nasal Cannula 02/17/17 04:00 97.9 Intake and Output 02/16/17 02/16/17 02/17/17 15:00 23:00 07:00 Intake Total 50 ml Output Total 2025 ml 1300 ml 1100 ml Balance -2025 ml -1250 ml -1100 ml Exam General: Morbidly obese 46 year-old female lying in bed orally intubated. HEENT: Normocephalic, atraumatic. Eyes: Anicteric sclerae, conjunctivae clear. ENT: Nasal septum midline. NGT in place. Oral mucosa is dry. Neck supple, no JVD noticed. Respiratory: Bilaterally diminished breath sounds. No use of accessory muscles of respiration. Cardiovascular: S1, S2 heard. Regular rate and rhythm. Abdomen: Soft, nontender, and nondistended. Bowel sounds positive in all 4 quadrants. Genitourinary: Deferred. Extremities: No cyanosis, no clubbing, no edema. Peripheral pulses palpable. Neurologic: Awake alert, and oriented. Skin: Normal skin turgor. No skin rashes. Results Result Diagram: 02/17/17 0455 02/17/17 0455 Results 24 hrs Laboratory Tests Test 02/16/17 12:12 02/16/17 17:40 02/16/17 21:51 02/17/17 04:55 Bedside Glucose 125 111 114 White Blood Count 11.9 #H Red Blood Count 5.02 Hemoglobin 11.4 L Hematocrit 39.4 Mean Corpuscular Volume 78.5 L Mean Corpuscular Hemoglobin 22.7 L Mean Corpuscular Hemoglobin Concent 28.9 L Red Cell Distribution Width 18.5 H Platelet Count 330 Mean Platelet Volume 9.0 Neutrophils % 88.1 H Lymphocytes % 7.7 L Monocytes % 3.5 Eosinophils % 0.0 Basophils % 0.1 Nucleated Red Blood Cells % 0.0 Neutrophils # (Manual) 10.5 H Lymphocytes # 0.9 Monocytes # 0.4 Eosinophils # 0.0 Basophils # 0.0 Nucleated Red Blood Cells # 0.0 Sodium Level 140 Potassium Level 4.4 Chloride Level 100 Carbon Dioxide Level 34 H Anion Gap 10 Blood Urea Nitrogen 38 #H Creatinine 0.92 Glucose Level 130 Calcium Level 9.3 Phosphorus Level 4.9 Magnesium Level 2.1 Test 02/17/17 08:07 Bedside Glucose 120 Medications Medications Current Medications Lorazepam (Ativan) 0.5 mg Q8H PRN PO ANXIETY; Start 01/30/17 at 05:00 Acetaminophen (Tylenol Tab) 650 mg Q6H PRN PO PAIN LEVEL 1-3 OR FEVER Last administered on 01/30/17 12:04; Admin Dose 650 MG; Start 01/30/17 at 05:00 Diagnostic Test (Pha) (Accu-Chek) 1 ea 02 XX Last administered on 02/05/17 02: 00; Admin Dose 1 EA; Start 01/31/17 at 02:00 Alprazolam (Xanax) 1 mg QHS PRN PO ANXIETY; Start 01/30/17 at 05:00 Benazepril HCl (Lotensin) 40 mg DAILY PO Last administered on 01/31/17 08:08; Admin Dose 40 MG; Start 01/30/17 at 09:00; Status Future Hold Docusate Sodium (Colace) 100 mg BID PO Last administered on 02/17/17 08:10; Admin Dose 100 MG; Start 01/30/17 at 09:00 Gabapentin (Neurontin) 100 mg BID PO Last administered on 02/17/17 08:09; Admin Dose 100 MG; Start 01/30/17 at 09:00 Acetaminophen/ Hydrocodone Bitart ([place] (10/325)) 1 tab Q6H PRN PO PAIN Last administered on 02/04/17 02:49; Admin Dose 1 TAB; Start 01/30/17 at 05:00 Miscellaneous Information 1 ea NOTE XX ; Start 01/30/17 at 05:00 Glucose (Glutose) 15 gm Q15M PRN PO DECREASED GLUCOSE; Start 01/30/17 at 05:00 Glucose (Glutose) 22.5 gm Q15M PRN PO DECREASED GLUCOSE; Start 01/30/17 at 05: 00 Dextrose (D50w Syringe) 25 ml Q15M PRN IV DECREASED GLUCOSE; Start 01/30/17 at 05:00 Dextrose (D50w Syringe) 50 ml Q15M PRN IV DECREASED GLUCOSE; Start 01/30/17 at 05:00 Glucagon (Glucagen) 1 mg Q15M PRN IM DECREASED GLUCOSE; Start 01/30/17 at 05:00 Glucose (Glutose) 15 gm Q15M PRN BUCCAL DECREASED GLUCOSE; Start 01/30/17 at 05 :00 Nitroglycerin (Nitroglycerin (Sl Tab) 0.4 Mg) 1 tab [id number] PRN SL CHEST PAIN ; Start 01/30/17 at 05:30 Heparin Sodium (Porcine) (Heparin (5000 Units/0.5 ml)) 5,000 unit Q8 SC Last administered on 02/10/17 14:12; Admin Dose 5,000 UNIT; Start 02/01/17 at 18:00 ; Status Future Hold Metoprolol Tartrate (Lopressor) 12.5 mg BID PRN PO BP>130 systolic; Start 02/02 at 12:00 Colchicine (Colchicine) 0.6 mg DAILY PO Last administered on 02/17/17 08:09; Admin Dose 0.6 MG; Start 02/03/17 at 09:00 Miscellaneous Information (Pending [facility] Order For Wound Care) This patient deleon... PRN PRN XX WOUND CARE; Start 02/02/17 at 17:30 Nystatin (Nystatin Powder) 1 applic BID TOP Last administered on 02/17/17 08:10 ; Admin Dose 1 APPLIC; Start 02/02/17 at 21:00 Hydromorphone HCl (Dilaudid) 1 mg Q6H PRN IV PAIN Last administered on 03:46; Admin Dose 1 MG; Start 02/04/17 at 14:30 Senna (Senokot) 2 tab BID PO Last administered on 02/17/17 08:09; Admin Dose 2 TAB; Start 02/05/17 at 13:00 Ferrous Gluconate (Fergon) 325 mg TID PO Last administered on 02/17/17 08:09; Admin Dose 325 MG; Start 02/06/17 at 13:00 Loratadine (Claritin) 10 mg DAILY PO Last administered on 02/16/17 08:54; Admin Dose 10 MG; Start 02/09/17 at 14:00 Acetaminophen/ Hydrocodone Bitart ([place] (5/325)) 1 tab Q6H PRN PO PAIN LEVEL 6 -10; Start 02/11/17 at 12:30 Ondansetron HCl 4 mg 4 mg Q6H PRN IV NAUSEA AND/OR VOMITING; Start 02/11/17 at 12:30 Propofol (Diprivan) 100 ml @ 3.672 mls/ hr Q12H IV Last administered on 06:50; Admin Dose 33.048 MLS/HR; Start 02/11/17 at 13:30 Hydromorphone HCl (Dilaudid) 1 mg Q4H PRN IV PAIN Last administered on 09:38; Admin Dose 1 MG; Start 02/11/17 at 20:30 Methylprednisolone Sodium Succinate (Solu-Medrol) 40 mg Q12 IV Last administered on 02/17/17 08:09; Admin Dose 40 MG; Start 02/12/17 at 13:30 Furosemide (Lasix) 40 mg DAILY IV Last administered on 02/17/17 08:09; Admin Dose 40 MG; Start 02/14/17 at 09:30 SOLITARIO LAMBERT NP Feb 17, 2017 08:52
--- NOTE | 2017-02-17 10:18 | CONS ---
Date/Time of Note Date/Time of Note DATE: 02/17/17 TIME: 10:17 Consult Date/Type/Reason Admit Date/Time Jan 30, 2017 at 02:47 Initial Consult Date 02/01/17 Type of Consultation: Pulm Subjective remains comfortable on nc Objective Vital Signs Date Time Temp Pulse Resp B/P Pulse Ox O2 Delivery O2 Flow Rate FiO2 02/17/17 09:00 52 21 139/73 96 Nasal Cannula 02/17/17 08:00 98.1 3.0 02/17/17 05:33 31 Intake and Output 02/16/17 02/16/17 02/17/17 14:59 22:59 06:59 Intake Total 50 ml Output Total 2025 ml 1150 ml 1250 ml Balance -2025 ml -1100 ml -1250 ml Exam GENERAL: Morbidly obese lady on nasal cannula. VITAL SIGNS: per chart NECK: Supple. No JVD or lymphadenopathy. CARDIAC EXAM: S1, S2. No added sounds or murmurs. CHEST: Diminished air entry bilaterally, ABDOMEN: Soft, nontender. No guarding or rebound. EXTREMITIES: No cyanosis, clubbing edema +1 NEUROLOGIC: No neurological deficits. Results/Medications Result Diagram: 02/17/17 0455 02/17/17 0455 Results 24 hrs Laboratory Tests Test 02/16/17 12:12 02/16/17 17:40 02/16/17 21:51 02/17/17 04:55 Bedside Glucose 125 111 114 White Blood Count 11.9 #H Red Blood Count 5.02 Hemoglobin 11.4 L Hematocrit 39.4 Mean Corpuscular Volume 78.5 L Mean Corpuscular Hemoglobin 22.7 L Mean Corpuscular Hemoglobin Concent 28.9 L Red Cell Distribution Width 18.5 H Platelet Count 330 Mean Platelet Volume 9.0 Neutrophils % 88.1 H Lymphocytes % 7.7 L Monocytes % 3.5 Eosinophils % 0.0 Basophils % 0.1 Nucleated Red Blood Cells % 0.0 Neutrophils # (Manual) 10.5 H Lymphocytes # 0.9 Monocytes # 0.4 Eosinophils # 0.0 Basophils # 0.0 Nucleated Red Blood Cells # 0.0 Sodium Level 140 Potassium Level 4.4 Chloride Level 100 Carbon Dioxide Level 34 H Anion Gap 10 Blood Urea Nitrogen 38 #H Creatinine 0.92 Glucose Level 130 Calcium Level 9.3 Phosphorus Level 4.9 Magnesium Level 2.1 Test 02/17/17 08:07 Bedside Glucose 120 Medications Current Medications Lorazepam (Ativan) 0.5 mg Q8H PRN PO ANXIETY; Start 01/30/17 at 05:00 Acetaminophen (Tylenol Tab) 650 mg Q6H PRN PO PAIN LEVEL 1-3 OR FEVER Last administered on 01/30/17 12:04; Admin Dose 650 MG; Start 01/30/17 at 05:00 Diagnostic Test (Pha) (Accu-Chek) 1 ea 02 XX Last administered on 02/05/17 02: 00; Admin Dose 1 EA; Start 01/31/17 at 02:00 Alprazolam (Xanax) 1 mg QHS PRN PO ANXIETY; Start 01/30/17 at 05:00 Benazepril HCl (Lotensin) 40 mg DAILY PO Last administered on 01/31/17 08:08; Admin Dose 40 MG; Start 01/30/17 at 09:00; Status Future Hold Docusate Sodium (Colace) 100 mg BID PO Last administered on 02/16/17 08:51; Admin Dose 100 MG; Start 01/30/17 at 09:00 Gabapentin (Neurontin) 100 mg BID PO Last administered on 02/17/17 08:09; Admin Dose 100 MG; Start 01/30/17 at 09:00 Acetaminophen/ Hydrocodone Bitart ([place] (10/325)) 1 tab Q6H PRN PO PAIN Last administered on 02/04/17 02:49; Admin Dose 1 TAB; Start 01/30/17 at 05:00 Miscellaneous Information 1 ea NOTE XX ; Start 01/30/17 at 05:00 Glucose (Glutose) 15 gm Q15M PRN PO DECREASED GLUCOSE; Start 01/30/17 at 05:00 Glucose (Glutose) 22.5 gm Q15M PRN PO DECREASED GLUCOSE; Start 01/30/17 at 05: 00 Dextrose (D50w Syringe) 25 ml Q15M PRN IV DECREASED GLUCOSE; Start 01/30/17 at 05:00 Dextrose (D50w Syringe) 50 ml Q15M PRN IV DECREASED GLUCOSE; Start 01/30/17 at 05:00 Glucagon (Glucagen) 1 mg Q15M PRN IM DECREASED GLUCOSE; Start 01/30/17 at 05:00 Glucose (Glutose) 15 gm Q15M PRN BUCCAL DECREASED GLUCOSE; Start 01/30/17 at 05 :00 Nitroglycerin (Nitroglycerin (Sl Tab) 0.4 Mg) 1 tab [id number] PRN SL CHEST PAIN ; Start 01/30/17 at 05:30 Heparin Sodium (Porcine) (Heparin (5000 Units/0.5 ml)) 5,000 unit Q8 SC Last administered on 02/10/17 14:12; Admin Dose 5,000 UNIT; Start 02/01/17 at 18:00 ; Status Future Hold Metoprolol Tartrate (Lopressor) 12.5 mg BID PRN PO BP>130 systolic; Start 02/02 at 12:00 Colchicine (Colchicine) 0.6 mg DAILY PO Last administered on 02/17/17 08:09; Admin Dose 0.6 MG; Start 02/03/17 at 09:00 Miscellaneous Information (Pending [facility] Order For Wound Care) This patient deleon... PRN PRN XX WOUND CARE; Start 02/02/17 at 17:30 Nystatin (Nystatin Powder) 1 applic BID TOP Last administered on 02/17/17 08:10 ; Admin Dose 1 APPLIC; Start 02/02/17 at 21:00 Hydromorphone HCl (Dilaudid) 1 mg Q6H PRN IV PAIN Last administered on 03:46; Admin Dose 1 MG; Start 02/04/17 at 14:30 Senna (Senokot) 2 tab BID PO Last administered on 02/16/17 08:51; Admin Dose 2 TAB; Start 02/05/17 at 13:00 Ferrous Gluconate (Fergon) 325 mg TID PO Last administered on 02/17/17 08:09; Admin Dose 325 MG; Start 02/06/17 at 13:00 Loratadine (Claritin) 10 mg DAILY PO Last administered on 02/17/17 08:51; Admin Dose 10 MG; Start 02/09/17 at 14:00 Acetaminophen/ Hydrocodone Bitart ([place] (5/325)) 1 tab Q6H PRN PO PAIN LEVEL 6 -10; Start 02/11/17 at 12:30 Ondansetron HCl (Zofran Inj) 4 mg Q6H PRN IV NAUSEA AND/OR VOMITING; Start 02/11 at 12:30 Hydromorphone HCl (Dilaudid) 1 mg Q4H PRN IV PAIN Last administered on 09:38; Admin Dose 1 MG; Start 02/11/17 at 20:30 Methylprednisolone Sodium Succinate (Solu-Medrol) 40 mg Q12 IV Last administered on 02/17/17 08:09; Admin Dose 40 MG; Start 02/12/17 at 13:30 Furosemide (Lasix) 40 mg DAILY IV Last administered on 02/17/17 08:09; Admin Dose 40 MG; Start 02/14/17 at 09:30 Indomethacin (Indocin) 25 mg TID PO ; Start 02/17/17 at 10:30 Assessment/Plan Chief Complaint/Hosp Course IMP: 1. Hypoxemic hypercapnic respiratory failure. Concern for airway edema requiring prolonged mechanical ventilation following pericardial drainage. Pericardial drain now removed.Now extubated. 2. History of pulmonary embolism. Underlying pulmonary edema on chest x-ray. 3. History of psychiatric disorder. 4. SHIRLEY/OHS RECS: 1. Encourage nocturnal NIPPV. 2. Cardiac recs. 3. Monitor renal function. 4. Speech therapy evaluation postextubation. 5. Continue DVT and GI prophylaxis 6. Continue Lasix. transfer to tele. Problems: TALIA ACEVEDO [facility] Feb 17, 2017 10:18
[2017-02-17] MEDS ORDERED: INDOMETHACIN 25 MG PO SCH (10:30)
--- NOTE | 2017-02-17 11:49 | CONS ---
Date/Time of Note Date/Time of Note DATE: 02/17/17 TIME: 11:47 Assessment/Plan Assessment/Plan Additional Assessment/Plan Pericardial effusion s/p pericardial window 02/11/17 Preserved ejection fraction Respiratory failure, extubated Supermorbid obesity Obstructive sleep apnea -Diabetic management as per our nephrology colleagues. Patient has been started on indomethacin, given this could exacerbate congestive heart failure and fluid retention, would recommend stopping at the current time. Consultation Date/Type/Reason Admit Date/Time Jan 30, 2017 at 02:47 Initial Consult Date 02/01/17 Type of Consultation: cv 24 HR Interval Summary Free Text/Dictation Denies shortness of breath, dizziness, still issues with swallowing Exam/Review of Systems Vital Signs Vitals Vital Signs Date Time Temp Pulse Resp B/P Pulse Ox O2 Delivery O2 Flow Rate FiO2 02/17/17 11:00 98.2 47 23 133/78 94 Nasal Cannula 02/17/17 08:00 3.0 02/17/17 05:33 31 Intake and Output 02/16/17 02/16/17 02/17/17 15:00 23:00 07:00 Intake Total 50 ml Output Total 2025 ml 1300 ml 1100 ml Balance -2025 ml -1250 ml -1100 ml Exam No apparent distress Constitutional: alert, obese, oriented Head: normocephalic Respiratory: other (Coarse breath sounds bilaterally, no wheezing) Cardiovascular: other (S1-S2 heard), regular rate and rhythm Gastrointestinal: bowel sounds, non-tender, soft Extremities: edema Results Result Diagram: 02/17/17 0455 02/17/17 0455 Results 24 hrs Laboratory Tests Test 02/16/17 12:12 02/16/17 17:40 02/16/17 21:51 02/17/17 04:55 Bedside Glucose 125 111 114 White Blood Count 11.9 #H Red Blood Count 5.02 Hemoglobin 11.4 L Hematocrit 39.4 Mean Corpuscular Volume 78.5 L Mean Corpuscular Hemoglobin 22.7 L Mean Corpuscular Hemoglobin Concent 28.9 L Red Cell Distribution Width 18.5 H Platelet Count 330 Mean Platelet Volume 9.0 Neutrophils % 88.1 H Lymphocytes % 7.7 L Monocytes % 3.5 Eosinophils % 0.0 Basophils % 0.1 Nucleated Red Blood Cells % 0.0 Neutrophils # (Manual) 10.5 H Lymphocytes # 0.9 Monocytes # 0.4 Eosinophils # 0.0 Basophils # 0.0 Nucleated Red Blood Cells # 0.0 Sodium Level 140 Potassium Level 4.4 Chloride Level 100 Carbon Dioxide Level 34 H Anion Gap 10 Blood Urea Nitrogen 38 #H Creatinine 0.92 Glucose Level 130 Calcium Level 9.3 Phosphorus Level 4.9 Magnesium Level 2.1 Test 02/17/17 08:07 02/17/17 11:04 Bedside Glucose 120 143 Medications Medications Current Medications Lorazepam (Ativan) 0.5 mg Q8H PRN PO ANXIETY; Start 01/30/17 at 05:00 Acetaminophen (Tylenol Tab) 650 mg Q6H PRN PO PAIN LEVEL 1-3 OR FEVER Last administered on 01/30/17 12:04; Admin Dose 650 MG; Start 01/30/17 at 05:00 Diagnostic Test (Pha) (Accu-Chek) 1 ea 02 XX Last administered on 02/05/17 02: 00; Admin Dose 1 EA; Start 01/31/17 at 02:00 Alprazolam (Xanax) 1 mg QHS PRN PO ANXIETY; Start 01/30/17 at 05:00 Benazepril HCl (Lotensin) 40 mg DAILY PO Last administered on 01/31/17 08:08; Admin Dose 40 MG; Start 01/30/17 at 09:00; Status Future Hold Docusate Sodium (Colace) 100 mg BID PO Last administered on 02/16/17 08:51; Admin Dose 100 MG; Start 01/30/17 at 09:00 Gabapentin (Neurontin) 100 mg BID PO Last administered on 02/17/17 08:09; Admin Dose 100 MG; Start 01/30/17 at 09:00 Acetaminophen/ Hydrocodone Bitart ([place] (10/325)) 1 tab Q6H PRN PO PAIN Last administered on 02/04/17 02:49; Admin Dose 1 TAB; Start 01/30/17 at 05:00 Miscellaneous Information 1 ea NOTE XX ; Start 01/30/17 at 05:00 Glucose (Glutose) 15 gm Q15M PRN PO DECREASED GLUCOSE; Start 01/30/17 at 05:00 Glucose (Glutose) 22.5 gm Q15M PRN PO DECREASED GLUCOSE; Start 01/30/17 at 05: 00 Dextrose (D50w Syringe) 25 ml Q15M PRN IV DECREASED GLUCOSE; Start 01/30/17 at 05:00 Dextrose (D50w Syringe) 50 ml Q15M PRN IV DECREASED GLUCOSE; Start 01/30/17 at 05:00 Glucagon (Glucagen) 1 mg Q15M PRN IM DECREASED GLUCOSE; Start 01/30/17 at 05:00 Glucose (Glutose) 15 gm Q15M PRN BUCCAL DECREASED GLUCOSE; Start 01/30/17 at 05 :00 Nitroglycerin (Nitroglycerin (Sl Tab) 0.4 Mg) 1 tab [id number] PRN SL CHEST PAIN ; Start 01/30/17 at 05:30 Heparin Sodium (Porcine) (Heparin (5000 Units/0.5 ml)) 5,000 unit Q8 SC Last administered on 02/10/17 14:12; Admin Dose 5,000 UNIT; Start 02/01/17 at 18:00 ; Status Future Hold Metoprolol Tartrate (Lopressor) 12.5 mg BID PRN PO BP>130 systolic; Start 02/02 at 12:00 Colchicine (Colchicine) 0.6 mg DAILY PO Last administered on 02/17/17 08:09; Admin Dose 0.6 MG; Start 02/03/17 at 09:00 [facility] This patient deleon... PRN PRN XX WOUND CARE; Start 02/02/17 at 17:30 Nystatin (Nystatin Powder) 1 applic BID TOP Last administered on 02/17/17 08:10 ; Admin Dose 1 APPLIC; Start 02/02/17 at 21:00 Hydromorphone HCl (Dilaudid) 1 mg Q6H PRN IV PAIN Last administered on 03:46; Admin Dose 1 MG; Start 02/04/17 at 14:30 Senna (Senokot) 2 tab BID PO Last administered on 02/16/17 08:51; Admin Dose 2 TAB; Start 02/05/17 at 13:00 Ferrous Gluconate (Fergon) 325 mg TID PO Last administered on 02/17/17 08:09; Admin Dose 325 MG; Start 02/06/17 at 13:00 Loratadine (Claritin) 10 mg DAILY PO Last administered on 02/17/17 08:51; Admin Dose 10 MG; Start 02/09/17 at 14:00 Acetaminophen/ Hydrocodone Bitart ([place] (5/325)) 1 tab Q6H PRN PO PAIN LEVEL 6 -10; Start 02/11/17 at 12:30 Ondansetron HCl (Zofran Inj) 4 mg Q6H PRN IV NAUSEA AND/OR VOMITING; Start 02/11 at 12:30 Hydromorphone HCl (Dilaudid) 1 mg Q4H PRN IV PAIN Last administered on 09:38; Admin Dose 1 MG; Start 02/11/17 at 20:30 Methylprednisolone Sodium Succinate (Solu-Medrol) 40 mg Q12 IV Last administered on 02/17/17 08:09; Admin Dose 40 MG; Start 02/12/17 at 13:30 Furosemide (Lasix) 40 mg DAILY IV Last administered on 02/17/17 08:09; Admin Dose 40 MG; Start 02/14/17 at 09:30 Indomethacin (Indocin) 25 mg TID PO Last administered on 02/17/17 11:01; Admin Dose 25 MG; Start 02/17/17 at 10:30 Sean Gallego DO Feb 17, 2017 11:49
[2017-02-17] MEDS: FERROUS SULFATE 60 MG/ML 5ML CUP PO SCH (20:52)
[2017-02-17] MEDS: HYDROmorphONE 1 MG/ML SYG IV PRN (20:52)
[2017-02-18] VITALS (11 sets, daily range): BP systolic 110–130; BP diastolic 56–70; PULSE 43–58; RESP 16–19
[2017-02-18] MEDS: ACCU-CHEK XX SCH (01:39)
[2017-02-18 06:36] LABS: ABNORMAL IP MESSAGE 1; BASOPHILS % 0.1 % (0.0-2.0); EOSINOPHILS % 0.1 % (0.0-7.0); HEMATOCRIT 40.8 % (37.0-47.0); HEMOGLOBIN 11.7 g/dl (12.0-16.0); LYMPHOCYTES # 1.1 10^3/ul (0.8-2.9); LYMPHOCYTES % 8.3 % (15.0-51.0); MEAN CORPUSCULAR HEMOGLOBIN 22.4 pg (29.0-33.0); MEAN CORPUSCULAR HGB CONC 28.7 g/dl (32.0-37.0); MEAN CORPUSCULAR VOLUME 78.2 fl (82.0-101.0); MONOCYTE # 0.6 10^3/ul (0.3-0.9); MONOCYTES % 4.9 % (0.0-11.0); NEUTROPHILS % 85.9 % (39.0-77.0); PLATELET COUNT 327 10^3/UL (140-415); RED BLOOD COUNT 5.22 10^6/ul (4.20-5.40); RED CELL DISTRIBUTION WIDTH 18.6 % (11.5-14.5); WHITE BLOOD COUNT 12.6 10^3/ul (4.8-10.8)
[2017-02-18 06:50] LABS: POSITIVE DIFF @See below
[2017-02-18 07:05] LABS: CALCIUM 9.4 mg/dl (8.4-10.2); CREATININE 0.9 mg/dl (0.44-1.00); POTASSIUM 4.4 mmol/L (3.5-5.1)
[2017-02-18 07:21] LABS: MAGNESIUM 2.2 mg/dl (1.7-2.5); PHOSPHORUS 5.3 mg/dl (2.5-4.9)
[2017-02-18] MEDS: INSULIN ASPART [NOVOLOG] 3 ML PEN SC SCH ×4 (07:55→21:00)
[2017-02-18] MEDS: FERROUS SULFATE 60 MG/ML 5ML CUP PO SCH ×3 (08:39→21:31)
[2017-02-18] MEDS: GABAPENTIN 100 MG CAP PO SCH ×2 (08:39→21:32)
[2017-02-18] MEDS: CALCIUM CARBONATE 500 MG CHEW TAB PO SCH ×4 (08:39→21:32)
[2017-02-18] MEDS: SENNA TAB PO SCH ×2 (08:39→21:32)
[2017-02-18] MEDS: DOCUSATE SODIUM 100 MG CAP PO SCH ×2 (08:40→21:32)
[2017-02-18] MEDS: COLCHICINE 0.6 MG TAB PO SCH (08:40)
[2017-02-18] MEDS: METHYLPREDNISOLONE 40 MG INJ IV SCH (08:40)
[2017-02-18] MEDS: FUROSEMIDE 40 MG INJ IV SCH (08:40)
[2017-02-18] MEDS: LORATADINE 10 MG TAB PO SCH (08:40)
[2017-02-18] MEDS: NYSTATIN 30 GM POWDER BTL TOP SCH ×2 (08:40→21:32)
--- NOTE | 2017-02-18 11:11 | PN ---
Date/Time of Note Date/Time of Note DATE: 02/18/17 TIME: 11:09 Assessment/Plan VTE Prophylaxis VTE Prophylaxis Intervention: SCD's Lines/Catheters IV Catheter Type (from [facility]): PICC Line Central line still needed: Yes Urinary Cath still in place: Yes Reason Cath still needed: other (indicate) Assessment/Plan Chief Complaint/Hosp Course 1. Moderate to large pericardial effusion. S/P thoracotomy and pericardiocentesis on 02/11/2017. S/P removal of chest tube on 02/14/2017. Continue colchicine. No NSAIDs as per cardiology. Etiology of the pericardial effusion could be idiopathic. Pericardial fluid culture has been negative. No evidence of any autoimmune process such as lupus. 2. Acute respiratory failure. Hypoxic and hypercapnic. The patient has known history of pulmonary embolism. The patient not a candidate for a CT angiogram because of the heavy weight. VQ scan was ordered. The patient could not tolerate VQ scan because of orthopnea. B/L LE venous Doppler negative for any DVT . Being followed by Pulmonology. Was intubated S/P surgery. Status post extubation on 02/15/2017. Continue inhaled bronchodilators and supplemental O2. 3. Essential hypertension. Continue antihypertensives. 4. Depression. Off antidepressants. 5. Type 2 diabetes mellitus. Continue sliding scale insulin. 6. Acute kidney injury. Resolved. Resolved. Will use nephrotoxic medications cautiously. Nephrology following. 7. Microcytic, hypochromic anemia. Underlying iron deficiency. Continue the patient on iron supplements. 8. Obesity. BMI of 46.3 kg/m. 10. Fluids, electrolytes, and nutrition. Puree diet with thin liquids. 11. DVT prophylaxis. B/L SCDs. 12. Plan. Continue current management. Continue PT. Discontinue P[place]. Case discussed with Dr. Urbina. Problems: Subjective 24 Hr Interval Summary Free Text/Dictation Denies any chest pain. S/P PT evaluation today. Exam/Review of Systems Vital Signs Vitals Vital Signs Date Time Temp Pulse Resp B/P Pulse Ox O2 Delivery O2 Flow Rate FiO2 02/18/17 08:33 47 02/18/17 07:45 Nasal Cannula 3.0 02/18/17 07:16 97.3 18 113/56 93 02/17/17 05:33 31 Intake and Output 02/17/17 02/17/17 02/18/17 15:00 23:00 07:00 Intake Total 200 ml 50 ml Output Total 2150 ml 1100 ml 450 ml Balance -1950 ml -1050 ml -450 ml Exam General: Morbidly obese 46 year-old female lying in bed orally intubated. HEENT: Normocephalic, atraumatic. Eyes: Anicteric sclerae, conjunctivae clear. ENT: Nasal septum midline. Oral mucosa is dry. Neck supple, no JVD noticed. Respiratory: Bilaterally diminished breath sounds. No use of accessory muscles of respiration. Cardiovascular: S1, S2 heard. Regular rate and rhythm. Abdomen: Soft, nontender, and nondistended. Bowel sounds positive in all 4 quadrants. Genitourinary: Deferred. Extremities: No cyanosis, no clubbing, no edema. Peripheral pulses palpable. Neurologic: Awake alert, and oriented. Skin: Normal skin turgor. No skin rashes. Results Result Diagram: 02/18/17 0554 02/18/17 0554 Results 24 hrs Laboratory Tests Test 02/17/17 18:00 02/17/17 20:49 02/18/17 05:54 02/18/17 08:38 Bedside Glucose 111 106 105 White Blood Count 12.6 H Red Blood Count 5.22 Hemoglobin 11.7 L Hematocrit 40.8 Mean Corpuscular Volume 78.2 L Mean Corpuscular Hemoglobin 22.4 L Mean Corpuscular Hemoglobin Concent 28.7 L Red Cell Distribution Width 18.6 H Platelet Count 327 Mean Platelet Volume 9.0 Neutrophils % 85.9 H Lymphocytes % 8.3 L Monocytes % 4.9 Eosinophils % 0.1 Basophils % 0.1 Nucleated Red Blood Cells % 0.0 Neutrophils # (Manual) 10.9 H Lymphocytes # 1.1 Monocytes # 0.6 Eosinophils # 0.0 Basophils # 0.0 Nucleated Red Blood Cells # 0.0 Sodium Level 141 Potassium Level 4.4 Chloride Level 99 Carbon Dioxide Level 35 H Anion Gap 11 Blood Urea Nitrogen 48 H Creatinine 0.90 Glucose Level 131 Calcium Level 9.4 Phosphorus Level 5.3 H Magnesium Level 2.2 Medications Medications Current Medications Lorazepam (Ativan) 0.5 mg Q8H PRN PO ANXIETY; Start 01/30/17 at 05:00 Acetaminophen (Tylenol Tab) 650 mg Q6H PRN PO PAIN LEVEL 1-3 OR FEVER Last administered on 01/30/17 12:04; Admin Dose 650 MG; Start 01/30/17 at 05:00 Diagnostic Test (Pha) (Accu-Chek) 1 ea 02 XX Last administered on 02/05/17 02: 00; Admin Dose 1 EA; Start 01/31/17 at 02:00 Alprazolam (Xanax) 1 mg QHS PRN PO ANXIETY; Start 01/30/17 at 05:00 Benazepril HCl (Lotensin) 40 mg DAILY PO Last administered on 01/31/17 08:08; Admin Dose 40 MG; Start 01/30/17 at 09:00; Status Future Hold Docusate Sodium (Colace) 100 mg BID PO Last administered on 02/18/17 08:40; Admin Dose 100 MG; Start 01/30/17 at 09:00 Gabapentin (Neurontin) 100 mg BID PO Last administered on 02/18/17 08:39; Admin Dose 100 MG; Start 01/30/17 at 09:00 Acetaminophen/ Hydrocodone Bitart ([place] (10/325)) 1 tab Q6H PRN PO PAIN Last administered on 02/04/17 02:49; Admin Dose 1 TAB; Start 01/30/17 at 05:00 Miscellaneous Information 1 ea NOTE XX ; Start 01/30/17 at 05:00 Glucose (Glutose) 15 gm Q15M PRN PO DECREASED GLUCOSE; Start 01/30/17 at 05:00 Glucose (Glutose) 22.5 gm Q15M PRN PO DECREASED GLUCOSE; Start 01/30/17 at 05: 00 Dextrose (D50w Syringe) 25 ml Q15M PRN IV DECREASED GLUCOSE; Start 01/30/17 at 05:00 Dextrose (D50w Syringe) 50 ml Q15M PRN IV DECREASED GLUCOSE; Start 01/30/17 at 05:00 Glucagon (Glucagen) 1 mg Q15M PRN IM DECREASED GLUCOSE; Start 01/30/17 at 05:00 Glucose (Glutose) 15 gm Q15M PRN BUCCAL DECREASED GLUCOSE; Start 01/30/17 at 05 :00 Nitroglycerin (Nitroglycerin (Sl Tab) 0.4 Mg) 1 tab [id number] PRN SL CHEST PAIN ; Start 01/30/17 at 05:30 Heparin Sodium (Porcine) (Heparin (5000 Units/0.5 ml)) 5,000 unit Q8 SC Last administered on 02/10/17 14:12; Admin Dose 5,000 UNIT; Start 02/01/17 at 18:00 ; Status Future Hold Metoprolol Tartrate (Lopressor) 12.5 mg BID PRN PO BP>130 systolic; Start 02/02 at 12:00 Colchicine (Colchicine) 0.6 mg DAILY PO Last administered on 02/18/17 08:40; Admin Dose 0.6 MG; Start 02/03/17 at 09:00 Miscellaneous Information (Pending [facility] Order For Wound Care) This patient deleon... PRN PRN XX WOUND CARE; Start 02/02/17 at 17:30 Nystatin (Nystatin Powder) 1 applic BID TOP Last administered on 02/18/17 08:40 ; Admin Dose 1 APPLIC; Start 02/02/17 at 21:00 Hydromorphone HCl (Dilaudid) 1 mg Q6H PRN IV PAIN Last administered on 20:52; Admin Dose 1 MG; Start 02/04/17 at 14:30 Senna (Senokot) 2 tab BID PO Last administered on 02/18/17 08:39; Admin Dose 2 TAB; Start 02/05/17 at 13:00 Loratadine (Claritin) 10 mg DAILY PO Last administered on 02/18/17 08:40; Admin Dose 10 MG; Start 02/09/17 at 14:00 Acetaminophen/ Hydrocodone Bitart (Friend (5/325)) 1 tab Q6H PRN PO PAIN LEVEL 6 -10; Start 02/11/17 at 12:30 Ondansetron HCl (Zofran Inj) 4 mg Q6H PRN IV NAUSEA AND/OR VOMITING Last administered on 02/17/17 21:14; Admin Dose 4 MG; Start 02/11/17 at 12:30 Hydromorphone HCl (Dilaudid) 1 mg Q4H PRN IV PAIN Last administered on 09:38; Admin Dose 1 MG; Start 02/11/17 at 20:30 Methylprednisolone Sodium Succinate (Solu-Medrol) 40 mg Q12 IV Last administered on 02/18/17 08:40; Admin Dose 40 MG; Start 02/12/17 at 13:30 Furosemide (Lasix) 40 mg DAILY IV Last administered on 02/18/17 08:40; Admin Dose 40 MG; Start 02/14/17 at 09:30 Ferrous Sulfate (Feosol Liquid Cup) 300 mg TID PO Last administered on 08:39; Admin Dose 300 MG; Start 02/17/17 at 21:00 SOLITARIO LAMBERT NP Feb 18, 2017 11:11
--- NOTE | 2017-02-18 12:33 | CONS ---
Date/Time of Note Date/Time of Note DATE: 02/18/17 TIME: 12:31 Assessment/Plan Assessment/Plan Additional Assessment/Plan Pericardial effusion s/p pericardial window 02/11/17 Preserved ejection fraction Respiratory failure, extubated Supermorbid obesity Obstructive sleep apnea -Spoke to our esteemed pathologist Dr. Monte today and repeat fluid sent for further studies demonstrated no malignant cells in the pericardial fluid. Would continue diuretics as per our nephrology colleagues. No AV alan blocking agents secondary to bradycardia. Consultation Date/Type/Reason Admit Date/Time Jan 30, 2017 at 02:47 Initial Consult Date 02/01/17 Type of Consultation: cv 24 HR Interval Summary Free Text/Dictation Shortness of breath continues to improve, denies chest pain, palpitations Exam/Review of Systems Vital Signs Vitals Vital Signs Date Time Temp Pulse Resp B/P Pulse Ox O2 Delivery O2 Flow Rate FiO2 02/18/17 12:05 54 02/18/17 11:20 98.0 18 125/65 92 02/18/17 07:45 Nasal Cannula 3.0 02/17/17 05:33 31 Intake and Output 02/17/17 02/17/17 02/18/17 15:00 23:00 07:00 Intake Total 200 ml 50 ml Output Total 2150 ml 1100 ml 450 ml Balance -1950 ml -1050 ml -450 ml Exam No apparent distress Constitutional: alert, obese, oriented Head: normocephalic Respiratory: other (Worse breath sounds bilaterally, no wheezing) Cardiovascular: other (S1-S2 heard), regular rate and rhythm Gastrointestinal: bowel sounds, non-tender, soft Extremities: edema Results Result Diagram: 02/18/17 0554 02/18/17 0554 Results 24 hrs Laboratory Tests Test 02/17/17 18:00 02/17/17 20:49 02/18/17 05:54 02/18/17 08:38 Bedside Glucose 111 106 105 White Blood Count 12.6 H Red Blood Count 5.22 Hemoglobin 11.7 L Hematocrit 40.8 Mean Corpuscular Volume 78.2 L Mean Corpuscular Hemoglobin 22.4 L Mean Corpuscular Hemoglobin Concent 28.7 L Red Cell Distribution Width 18.6 H Platelet Count 327 Mean Platelet Volume 9.0 Neutrophils % 85.9 H Lymphocytes % 8.3 L Monocytes % 4.9 Eosinophils % 0.1 Basophils % 0.1 Nucleated Red Blood Cells % 0.0 Neutrophils # (Manual) 10.9 H Lymphocytes # 1.1 Monocytes # 0.6 Eosinophils # 0.0 Basophils # 0.0 Nucleated Red Blood Cells # 0.0 Sodium Level 141 Potassium Level 4.4 Chloride Level 99 Carbon Dioxide Level 35 H Anion Gap 11 Blood Urea Nitrogen 48 H Creatinine 0.90 Glucose Level 131 Calcium Level 9.4 Phosphorus Level 5.3 H Magnesium Level 2.2 Test 02/18/17 11:28 Bedside Glucose 142 Medications Medications Current Medications Lorazepam (Ativan) 0.5 mg Q8H PRN PO ANXIETY; Start 01/30/17 at 05:00 Acetaminophen (Tylenol Tab) 650 mg Q6H PRN PO PAIN LEVEL 1-3 OR FEVER Last administered on 01/30/17 12:04; Admin Dose 650 MG; Start 01/30/17 at 05:00 Diagnostic Test (Pha) (Accu-Chek) 1 ea 02 XX Last administered on 02/05/17 02: 00; Admin Dose 1 EA; Start 01/31/17 at 02:00 Alprazolam (Xanax) 1 mg QHS PRN PO ANXIETY; Start 01/30/17 at 05:00 Benazepril HCl (Lotensin) 40 mg DAILY PO Last administered on 01/31/17 08:08; Admin Dose 40 MG; Start 01/30/17 at 09:00; Status Future Hold Docusate Sodium (Colace) 100 mg BID PO Last administered on 02/18/17 08:40; Admin Dose 100 MG; Start 01/30/17 at 09:00 Gabapentin (Neurontin) 100 mg BID PO Last administered on 02/18/17 08:39; Admin Dose 100 MG; Start 01/30/17 at 09:00 Acetaminophen/ Hydrocodone Bitart ([place] (10/325)) 1 tab Q6H PRN PO PAIN Last administered on 02/04/17 02:49; Admin Dose 1 TAB; Start 01/30/17 at 05:00 Miscellaneous Information 1 ea NOTE XX ; Start 01/30/17 at 05:00 Glucose (Glutose) 15 gm Q15M PRN PO DECREASED GLUCOSE; Start 01/30/17 at 05:00 Glucose (Glutose) 22.5 gm Q15M PRN PO DECREASED GLUCOSE; Start 01/30/17 at 05: 00 Dextrose (D50w Syringe) 25 ml Q15M PRN IV DECREASED GLUCOSE; Start 01/30/17 at 05:00 Dextrose (D50w Syringe) 50 ml Q15M PRN IV DECREASED GLUCOSE; Start 01/30/17 at 05:00 Glucagon (Glucagen) 1 mg Q15M PRN IM DECREASED GLUCOSE; Start 01/30/17 at 05:00 Glucose (Glutose) 15 gm Q15M PRN BUCCAL DECREASED GLUCOSE; Start 01/30/17 at 05 :00 Nitroglycerin (Nitroglycerin (Sl Tab) 0.4 Mg) 1 tab [id number] PRN SL CHEST PAIN ; Start 01/30/17 at 05:30 Heparin Sodium (Porcine) (Heparin (5000 Units/0.5 ml)) 5,000 unit Q8 SC Last administered on 02/10/17 14:12; Admin Dose 5,000 UNIT; Start 02/01/17 at 18:00 ; Status Future Hold Metoprolol Tartrate (Lopressor) 12.5 mg BID PRN PO BP>130 systolic; Start 02/02 at 12:00 Colchicine (Colchicine) 0.6 mg DAILY PO Last administered on 02/18/17 08:40; Admin Dose 0.6 MG; Start 02/03/17 at 09:00 Miscellaneous Information (Pending [facility] Order For Wound Care) This patient deleon... PRN PRN XX WOUND CARE; Start 02/02/17 at 17:30 Nystatin (Nystatin Powder) 1 applic BID TOP Last administered on 02/18/17 08:40 ; Admin Dose 1 APPLIC; Start 02/02/17 at 21:00 Hydromorphone HCl (Dilaudid) 1 mg Q6H PRN IV PAIN Last administered on 20:52; Admin Dose 1 MG; Start 02/04/17 at 14:30 Senna (Senokot) 2 tab BID PO Last administered on 02/18/17 08:39; Admin Dose 2 TAB; Start 02/05/17 at 13:00 Loratadine (Claritin) 10 mg DAILY PO Last administered on 02/18/17 08:40; Admin Dose 10 MG; Start 02/09/17 at 14:00 Acetaminophen/ Hydrocodone Bitart ([place] (5/325)) 1 tab Q6H PRN PO PAIN LEVEL 6 -10; Start 02/11/17 at 12:30 Ondansetron HCl (Zofran Inj) 4 mg Q6H PRN IV NAUSEA AND/OR VOMITING Last administered on 02/17/17 21:14; Admin Dose 4 MG; Start 02/11/17 at 12:30 Hydromorphone HCl (Dilaudid) 1 mg Q4H PRN IV PAIN Last administered on 09:38; Admin Dose 1 MG; Start 02/11/17 at 20:30 Methylprednisolone Sodium Succinate (Solu-Medrol) 40 mg Q12 IV Last administered on 02/18/17 08:40; Admin Dose 40 MG; Start 02/12/17 at 13:30 Furosemide (Lasix) 40 mg DAILY IV Last administered on 02/18/17 08:40; Admin Dose 40 MG; Start 02/14/17 at 09:30 Ferrous Sulfate (Feosol Liquid Cup) 300 mg TID PO Last administered on 08:39; Admin Dose 300 MG; Start 02/17/17 at 21:00 Sean Gallego DO Feb 18, 2017 12:33
--- NOTE | 2017-02-18 14:28 | CONS ---
Date/Time of Note Date/Time of Note DATE: 02/18/17 TIME: 14:27 Consult Date/Type/Reason Admit Date/Time Jan 30, 2017 at 02:47 Initial Consult Date 02/01/17 Type of Consultation: pulm Subjective Remains comfortable following transfer to telemetry Objective Vital Signs Date Time Temp Pulse Resp B/P Pulse Ox O2 Delivery O2 Flow Rate FiO2 02/18/17 12:05 54 02/18/17 11:20 98.0 18 125/65 92 02/18/17 07:45 Nasal Cannula 3.0 02/17/17 05:33 31 Intake and Output 02/17/17 02/17/17 02/18/17 14:59 22:59 06:59 Intake Total 200 ml 50 ml Output Total 2150 ml 1100 ml 450 ml Balance -1950 ml -1050 ml -450 ml Exam GENERAL: Morbidly obese lady on nasal cannula. VITAL SIGNS: per chart NECK: Supple. No JVD or lymphadenopathy. CARDIAC EXAM: S1, S2. No added sounds or murmurs. CHEST: Diminished air entry bilaterally, ABDOMEN: Soft, nontender. No guarding or rebound. EXTREMITIES: No cyanosis, clubbing edema +1 NEUROLOGIC: No neurological deficits. Results/Medications Result Diagram: 02/18/17 0554 02/18/17 0554 Results 24 hrs Laboratory Tests Test 02/17/17 18:00 02/17/17 20:49 02/18/17 05:54 02/18/17 08:38 Bedside Glucose 111 106 105 White Blood Count 12.6 H Red Blood Count 5.22 Hemoglobin 11.7 L Hematocrit 40.8 Mean Corpuscular Volume 78.2 L Mean Corpuscular Hemoglobin 22.4 L Mean Corpuscular Hemoglobin Concent 28.7 L Red Cell Distribution Width 18.6 H Platelet Count 327 Mean Platelet Volume 9.0 Neutrophils % 85.9 H Lymphocytes % 8.3 L Monocytes % 4.9 Eosinophils % 0.1 Basophils % 0.1 Nucleated Red Blood Cells % 0.0 Neutrophils # (Manual) 10.9 H Lymphocytes # 1.1 Monocytes # 0.6 Eosinophils # 0.0 Basophils # 0.0 Nucleated Red Blood Cells # 0.0 Sodium Level 141 Potassium Level 4.4 Chloride Level 99 Carbon Dioxide Level 35 H Anion Gap 11 Blood Urea Nitrogen 48 H Creatinine 0.90 Glucose Level 131 Calcium Level 9.4 Phosphorus Level 5.3 H Magnesium Level 2.2 Test 02/18/17 11:28 Bedside Glucose 142 Medications Current Medications Lorazepam (Ativan) 0.5 mg Q8H PRN PO ANXIETY; Start 01/30/17 at 05:00 Acetaminophen (Tylenol Tab) 650 mg Q6H PRN PO PAIN LEVEL 1-3 OR FEVER Last administered on 01/30/17 12:04; Admin Dose 650 MG; Start 01/30/17 at 05:00 Diagnostic Test (Pha) (Accu-Chek) 1 ea 02 XX Last administered on 02/05/17 02: 00; Admin Dose 1 EA; Start 01/31/17 at 02:00 Alprazolam (Xanax) 1 mg QHS PRN PO ANXIETY; Start 01/30/17 at 05:00 Docusate Sodium (Colace) 100 mg BID PO Last administered on 02/18/17 08:40; Admin Dose 100 MG; Start 01/30/17 at 09:00 Gabapentin (Neurontin) 100 mg BID PO Last administered on 02/18/17 08:39; Admin Dose 100 MG; Start 01/30/17 at 09:00 Acetaminophen/ Hydrocodone Bitart ([place] (10/325)) 1 tab Q6H PRN PO PAIN Last administered on 02/04/17 02:49; Admin Dose 1 TAB; Start 01/30/17 at 05:00 Miscellaneous Information 1 ea NOTE XX ; Start 01/30/17 at 05:00 Glucose (Glutose) 15 gm Q15M PRN PO DECREASED GLUCOSE; Start 01/30/17 at 05:00 Glucose (Glutose) 22.5 gm Q15M PRN PO DECREASED GLUCOSE; Start 01/30/17 at 05: 00 Dextrose (D50w Syringe) 25 ml Q15M PRN IV DECREASED GLUCOSE; Start 01/30/17 at 05:00 Dextrose (D50w Syringe) 50 ml Q15M PRN IV DECREASED GLUCOSE; Start 01/30/17 at 05:00 Glucagon (Glucagen) 1 mg Q15M PRN IM DECREASED GLUCOSE; Start 01/30/17 at 05:00 Glucose (Glutose) 15 gm Q15M PRN BUCCAL DECREASED GLUCOSE; Start 01/30/17 at 05 :00 Nitroglycerin (Nitroglycerin (Sl Tab) 0.4 Mg) 1 tab [id number] PRN SL CHEST PAIN ; Start 01/30/17 at 05:30 Heparin Sodium (Porcine) (Heparin (5000 Units/0.5 ml)) 5,000 unit Q8 SC Last administered on 02/10/17 14:12; Admin Dose 5,000 UNIT; Start 02/01/17 at 18:00 ; Status Future Hold Colchicine (Colchicine) 0.6 mg DAILY PO Last administered on 02/18/17 08:40; Admin Dose 0.6 MG; Start 02/03/17 at 09:00 Miscellaneous Information (Pending Santyl Order For Wound Care) This patient deleon... PRN PRN XX WOUND CARE; Start 02/02/17 at 17:30 Nystatin (Nystatin Powder) 1 applic BID TOP Last administered on 02/18/17 08:40 ; Admin Dose 1 APPLIC; Start 02/02/17 at 21:00 Hydromorphone HCl (Dilaudid) 1 mg Q6H PRN IV PAIN Last administered on 20:52; Admin Dose 1 MG; Start 02/04/17 at 14:30 Senna (Senokot) 2 tab BID PO Last administered on 02/18/17 08:39; Admin Dose 2 TAB; Start 02/05/17 at 13:00 Loratadine (Claritin) 10 mg DAILY PO Last administered on 02/18/17 08:40; Admin Dose 10 MG; Start 02/09/17 at 14:00 Acetaminophen/ Hydrocodone Bitart ([place] (5/325)) 1 tab Q6H PRN PO PAIN LEVEL 6 -10; Start 02/11/17 at 12:30 Ondansetron HCl (Zofran Inj) 4 mg Q6H PRN IV NAUSEA AND/OR VOMITING Last administered on 02/17/17 21:14; Admin Dose 4 MG; Start 02/11/17 at 12:30 Hydromorphone HCl (Dilaudid) 1 mg Q4H PRN IV PAIN Last administered on 09:38; Admin Dose 1 MG; Start 02/11/17 at 20:30 Furosemide (Lasix) 40 mg DAILY IV Last administered on 02/18/17 08:40; Admin Dose 40 MG; Start 9/4/17 at 09:30 Ferrous Sulfate (Feosol Liquid Cup) 300 mg TID PO Last administered on t 13:00; Admin Dose 300 MG; Start 02/17/17 at 21:00 Methylprednisolone Sodium Succinate (Solu-Medrol) 40 mg DAILY IV ; Start at 09:00 Assessment/Plan Chief Complaint/Hosp Course IMP: 1. Hypoxemic hypercapnic respiratory failure. Concern for airway edema requiring prolonged mechanical ventilation following pericardial drainage. Pericardial drain now removed.Now extubated. 2. History of pulmonary embolism. Underlying pulmonary edema on chest x-ray. 3. History of psychiatric disorder. 4. SHIRLEY/OHS RECS: 1. Encourage nocturnal NIPPV. 2. Cardiac recs. 3. Monitor renal function. 4. Aspiration precautions 5. Continue DVT and GI prophylaxis 6. Continue Lasix. 7. Decrease steroids 8. Encourage out of bed agree with DC Pryor catheter Problems: TALIA ACEVEDO MD, [facility] Feb 18, 2017 14:28
[2017-02-18] MEDS: HYDROmorphONE 1 MG/ML SYG IV PRN (16:15)
[2017-02-19] VITALS (14 sets, daily range): BP systolic 105–138; BP diastolic 56–74; PULSE 56–77; RESP 16–22
[2017-02-19] MEDS: HYDROmorphONE 1 MG/ML SYG IV PRN ×4 (00:26→18:30)
[2017-02-19] MEDS: ACCU-CHEK XX SCH (02:00)
[2017-02-19 06:25] LABS: ABNORMAL IP MESSAGE 1; BASOPHILS % 0.1 % (0.0-2.0); EOSINOPHILS # 0.2 10^3/ul (0.0-0.5); EOSINOPHILS % 1.2 % (0.0-7.0); HEMATOCRIT 43.4 % (37.0-47.0); HEMOGLOBIN 12.3 g/dl (12.0-16.0); LYMPHOCYTES # 2.8 10^3/ul (0.8-2.9); LYMPHOCYTES % 18.4 % (15.0-51.0); MEAN CORPUSCULAR HEMOGLOBIN 22.1 pg (29.0-33.0); MEAN CORPUSCULAR HGB CONC 28.3 g/dl (32.0-37.0); MEAN CORPUSCULAR VOLUME 78.1 fl (82.0-101.0); MEAN PLATELET VOLUME 9.2 fl (7.4-10.4); MONOCYTE # 1.3 10^3/ul (0.3-0.9); MONOCYTES % 8.4 % (0.0-11.0); NEUTROPHILS % 70.5 % (39.0-77.0); PLATELET COUNT 304 10^3/UL (140-415); RED BLOOD COUNT 5.56 10^6/ul (4.20-5.40); RED CELL DISTRIBUTION WIDTH 19.1 % (11.5-14.5); WHITE BLOOD COUNT 15.5 10^3/ul (4.8-10.8)
[2017-02-19 06:39] LABS: POSITIVE DIFF @See below
[2017-02-19 07:02] LABS: CALCIUM 9.6 mg/dl (8.4-10.2); CREATININE 1.05 mg/dl (0.44-1.00); POTASSIUM 3.7 mmol/L (3.5-5.1)
[2017-02-19 07:05] LABS: MAGNESIUM 2.1 mg/dl (1.7-2.5)
[2017-02-19] MEDS: INSULIN ASPART [NOVOLOG] 3 ML PEN SC SCH ×4 (07:55→21:00)
[2017-02-19] MEDS: METHYLPREDNISOLONE 40 MG INJ IV SCH (08:43)
[2017-02-19] MEDS: FUROSEMIDE 40 MG INJ IV SCH (08:52)
[2017-02-19] MEDS: FERROUS SULFATE 60 MG/ML 5ML CUP PO SCH ×3 (08:55→21:09)
[2017-02-19] MEDS: COLCHICINE 0.6 MG TAB PO SCH (08:55)
[2017-02-19] MEDS: DOCUSATE SODIUM 100 MG CAP PO SCH ×2 (08:56→21:00)
[2017-02-19] MEDS: SENNA TAB PO SCH ×2 (08:56→21:00)
[2017-02-19] MEDS: LORATADINE 10 MG TAB PO SCH (08:56)
[2017-02-19] MEDS: GABAPENTIN 100 MG CAP PO SCH ×2 (08:56→21:09)
[2017-02-19] MEDS: NYSTATIN 30 GM POWDER BTL TOP SCH ×2 (08:57→21:13)
--- NOTE | 2017-02-19 10:03 | PN ---
Date/Time of Note Date/Time of Note DATE: 02/19/17 TIME: 10:00 Assessment/Plan VTE Prophylaxis VTE Prophylaxis Intervention: heparin, SCD's Lines/Catheters IV [facility] PICC Line Central line still needed: Yes Urinary Cath still in place: No Assessment/Plan Chief Complaint/Hosp Course 1. Moderate to large pericardial effusion. S/P thoracotomy and pericardiocentesis on 02/11/2017. S/P removal of chest tube on 02/14/2017. Continue colchicine. No NSAIDs as per cardiology. Etiology of the pericardial effusion could be idiopathic. Pericardial fluid culture has been negative. Cytology negative for any malignancy. No evidence of any autoimmune process such as lupus. 2. Acute respiratory failure. Hypoxic and hypercapnic. The patient has known history of pulmonary embolism. The patient not a candidate for a CT angiogram because of the heavy weight. VQ scan was ordered. The patient could not tolerate VQ scan because of orthopnea. B/L LE venous Doppler negative for any DVT . Being followed by Pulmonology. Was intubated S/P surgery. Status post extubation on 02/15/2017. Continue inhaled bronchodilators and supplemental O2. 3. Essential hypertension. Continue antihypertensives. 4. Depression. Off antidepressants. 5. Type 2 diabetes mellitus. Continue sliding scale insulin. 6. Acute kidney injury. Resolved. Resolved. Will use nephrotoxic medications cautiously. Nephrology following. 7. Microcytic, hypochromic anemia. Underlying iron deficiency. Continue the patient on iron supplements. 8. Obesity. BMI of 46.3 kg/m. 10. Fluids, electrolytes, and nutrition. Puree diet with thin liquids. 11. DVT prophylaxis. SQ heparin. 12. Plan. Continue current management. Continue PT. Case discussed with Dr. Hernandez. Problems: Subjective 24 Hr Interval Summary Free Text/Dictation Doing well. Exam/Review of Systems Vital Signs Vitals Vital Signs Date Time Temp Pulse Resp B/P Pulse Ox O2 Delivery O2 Flow Rate FiO2 02/19/17 08:00 60 02/19/17 07:50 98.1 18 105/58 94 02/18/17 22:36 3.0 02/18/17 20:00 Nasal Cannula 02/17/17 05:33 31 Intake and Output 02/18/17 02/18/17 02/19/17 15:00 23:00 07:00 Intake Total 400 ml 400 ml Output Total 1700 ml Balance -1300 ml 400 ml Exam General: Morbidly obese 46 year-old female lying in bed orally intubated. HEENT: Normocephalic, atraumatic. Eyes: Anicteric sclerae, conjunctivae clear. ENT: Nasal septum midline. Oral mucosa is dry. Neck supple, no JVD noticed. Respiratory: Bilaterally diminished breath sounds. No use of accessory muscles of respiration. Cardiovascular: S1, S2 heard. Regular rate and rhythm. Abdomen: Soft, nontender, and nondistended. Bowel sounds positive in all 4 quadrants. Genitourinary: Deferred. Extremities: No cyanosis, no clubbing, no edema. Peripheral pulses palpable. Neurologic: Awake alert, and oriented. Skin: Normal skin turgor. No skin rashes. Results Result Diagram: 02/19/17 0603 02/19/17 0603 Results 24 hrs Laboratory Tests Test 02/18/17 11:28 02/18/17 17:43 02/18/17 20:58 02/19/17 02:34 Bedside Glucose 142 126 96 100 Test 02/19/17 06:03 02/19/17 08:13 White Blood Count 15.5 #H Red Blood Count 5.56 H Hemoglobin 12.3 Hematocrit 43.4 Mean Corpuscular Volume 78.1 L Mean Corpuscular Hemoglobin 22.1 L Mean Corpuscular Hemoglobin Concent 28.3 L Red Cell Distribution Width 19.1 H Platelet Count 304 Mean Platelet Volume 9.2 Neutrophils % 70.5 Lymphocytes % 18.4 Monocytes % 8.4 Eosinophils % 1.2 Basophils % 0.1 Nucleated Red Blood Cells % 0.0 Neutrophils # (Manual) 10.9 H Lymphocytes # 2.8 Monocytes # 1.3 H Eosinophils # 0.2 Basophils # 0.0 Nucleated Red Blood Cells # 0.0 Sodium Level 139 Potassium Level 3.7 Chloride Level 96 L Carbon Dioxide Level 37 H Anion Gap 10 Blood Urea Nitrogen 55 H Creatinine 1.05 H Glucose Level 96 Calcium Level 9.6 Phosphorus Level 4.0 Magnesium Level 2.1 Bedside Glucose 98 Medications Medications Current Medications Lorazepam (Ativan) 0.5 mg Q8H PRN PO ANXIETY; Start 01/30/17 at 05:00 Acetaminophen (Tylenol Tab) 650 mg Q6H PRN PO PAIN LEVEL 1-3 OR FEVER Last administered on 01/30/17 12:04; Admin Dose 650 MG; Start 01/30/17 at 05:00 Diagnostic Test (Pha) (Accu-Chek) 1 ea 02 XX Last administered on 02/19/17 02: 00; Admin Dose 1 EA; Start 01/31/17 at 02:00 Alprazolam (Xanax) 1 mg QHS PRN PO ANXIETY; Start 01/30/17 at 05:00 Docusate Sodium (Colace) 100 mg BID PO Last administered on 02/19/17 08:56; Admin Dose 100 MG; Start 01/30/17 at 09:00 Gabapentin (Neurontin) 100 mg BID PO Last administered on 02/19/17 08:56; Admin Dose 100 MG; Start 01/30/17 at 09:00 Acetaminophen/ Hydrocodone Bitart ([place] (10/325)) 1 tab Q6H PRN PO PAIN Last administered on 02/04/17 02:49; Admin Dose 1 TAB; Start 01/30/17 at 05:00 Miscellaneous Information 1 ea NOTE XX ; Start 01/30/17 at 05:00 Glucose (Glutose) 15 gm Q15M PRN PO DECREASED GLUCOSE; Start 01/30/17 at 05:00 Glucose (Glutose) 22.5 gm Q15M PRN PO DECREASED GLUCOSE; Start 01/30/17 at 05: 00 Dextrose (D50w Syringe) 25 ml Q15M PRN IV DECREASED GLUCOSE; Start 01/30/17 at 05:00 Dextrose (D50w Syringe) 50 ml Q15M PRN IV DECREASED GLUCOSE; Start 01/30/17 at 05:00 Glucagon (Glucagen) 1 mg Q15M PRN IM DECREASED GLUCOSE; Start 01/30/17 at 05:00 Glucose (Glutose) 15 gm Q15M PRN BUCCAL DECREASED GLUCOSE; Start 01/30/17 at 05 :00 Nitroglycerin (Nitroglycerin (Sl Tab) 0.4 Mg) 1 tab [id number] PRN SL CHEST PAIN ; Start 01/30/17 at 05:30 Heparin Sodium (Porcine) (Heparin (5000 Units/0.5 ml)) 5,000 unit Q8 SC Last administered on 02/10/17 14:12; Admin Dose 5,000 UNIT; Start 02/01/17 at 18:00 ; Status Future Hold Colchicine (Colchicine) 0.6 mg DAILY PO Last administered on 02/19/17 08:55; Admin Dose 0.6 MG; Start 02/03/17 at 09:00 Miscellaneous [facility] This patient deleon... PRN PRN XX WOUND CARE; Start 02/02/17 at 17:30 Nystatin (Nystatin Powder) 1 applic BID TOP Last administered on 02/19/17 08:57 ; Admin Dose 1 APPLIC; Start 02/02/17 at 21:00 Hydromorphone HCl (Dilaudid) 1 mg Q6H PRN IV PAIN Last administered on 00:26; Admin Dose 1 MG; Start 02/04/17 at 14:30 Senna (Senokot) 2 tab BID PO Last administered on 02/19/17 08:56; Admin Dose 2 TAB; Start 02/05/17 at 13:00 Loratadine (Claritin) 10 mg DAILY PO Last administered on 02/19/17 08:56; Admin Dose 10 MG; Start 02/09/17 at 14:00 Acetaminophen/ Hydrocodone Bitart ([place] (5/325)) 1 tab Q6H PRN PO PAIN LEVEL 6 -10; Start 02/11/17 at 12:30 Ondansetron HCl (Zofran Inj) 4 mg Q6H PRN IV NAUSEA AND/OR VOMITING Last administered on 02/17/17 21:14; Admin Dose 4 MG; Start 02/11/17 at 12:30 Hydromorphone HCl (Dilaudid) 1 mg Q4H PRN IV PAIN Last administered on 08:42; Admin Dose 1 MG; Start 02/11/17 at 20:30 Furosemide (Lasix) 40 mg DAILY IV Last administered on 02/19/17 08:52; Admin Dose 40 MG; Start 02/14/17 at 09:30 Ferrous Sulfate (Feosol Liquid Cup) 300 mg TID PO Last administered on 08:55; Admin Dose 300 MG; Start 02/17/17 at 21:00 Methylprednisolone Sodium Succinate (Solu-Medrol) 40 mg DAILY IV Last administered on 02/19/17 08:43; Admin Dose 40 MG; Start 02/19/17 at 09:00 SOLITARIO LAMBERT NP Feb 19, 2017 10:03
--- NOTE | 2017-02-19 10:18 | PN ---
Date/Time of Note Date/Time of Note DATE: 02/19/17 TIME: 10:17 Assessment/Plan VTE Prophylaxis VTE Prophylaxis Intervention: SCD's Lines/Catheters IV Catheter Type (from Nrs): PICC Line Central line still needed: No Urinary Cath still in place: No Assessment/Plan Chief Complaint/Hosp Course This is a 46-year-old morbidly obese female with a history of PE 9 years ago, depression/anxiety, recurrent lower extremity cellulitis. Patient presented to the ER complaining of shortness of breath and chest pain which started yesterday. Symptoms are worse with exertion. Chest pain mainly occurs when taking a deep breath. Denied fever/chills, nausea/vomiting, palpitation, lightheadedness. She has no hx of cancer, no overt chf and has some orthopnea but not hypotensive Problems: Assessment/Plan Pericardial effusion s/p pericardial window 02/11/17 Preserved ejection fraction Respiratory failure, extubated Supermorbid obesity Obstructive sleep apnea -no malignant cells in the pericardial fluid. Would continue diuretics as per our nephrology colleagues. No AV alan blocking agents secondary to bradycardia. Subjective 24 Hr Interval Summary Free Text/Dictation the patinet stable overnight Exam/Review of Systems Vital Signs Vitals Vital Signs Date Time Temp Pulse Resp B/P Pulse Ox O2 Delivery O2 Flow Rate FiO2 02/19/17 08:00 60 02/19/17 07:50 98.1 18 105/58 94 02/18/17 22:36 3.0 02/18/17 20:00 Nasal Cannula 02/17/17 05:33 31 Intake and Output 02/18/17 02/18/17 02/19/17 15:00 23:00 07:00 Intake Total 400 ml 400 ml Output Total 1700 ml Balance -1300 ml 400 ml Results Result Diagram: 02/19/17 0603 02/19/17 0603 Results 24 hrs Laboratory Tests Test 02/18/17 11:28 02/18/17 17:43 02/18/17 20:58 02/19/17 02:34 Bedside Glucose 142 126 96 100 Test 02/19/17 06:03 02/19/17 08:13 White Blood Count 15.5 #H Red Blood Count 5.56 H Hemoglobin 12.3 Hematocrit 43.4 Mean Corpuscular Volume 78.1 L Mean Corpuscular Hemoglobin 22.1 L Mean Corpuscular Hemoglobin Concent 28.3 L Red Cell Distribution Width 19.1 H Platelet Count 304 Mean Platelet Volume 9.2 Neutrophils % 70.5 Lymphocytes % 18.4 Monocytes % 8.4 Eosinophils % 1.2 Basophils % 0.1 Nucleated Red Blood Cells % 0.0 Neutrophils # (Manual) 10.9 H Lymphocytes # 2.8 Monocytes # 1.3 H Eosinophils # 0.2 Basophils # 0.0 Nucleated Red Blood Cells # 0.0 Sodium Level 139 Potassium Level 3.7 Chloride Level 96 L Carbon Dioxide Level 37 H Anion Gap 10 Blood Urea Nitrogen 55 H Creatinine 1.05 H Glucose Level 96 Calcium Level 9.6 Phosphorus Level 4.0 Magnesium Level 2.1 Bedside Glucose 98 Medications Medications Current Medications Lorazepam (Ativan) 0.5 mg Q8H PRN PO ANXIETY; Start 01/30/17 at 05:00 Acetaminophen (Tylenol Tab) 650 mg Q6H PRN PO PAIN LEVEL 1-3 OR FEVER Last administered on 01/30/17 12:04; Admin Dose 650 MG; Start 01/30/17 at 05:00 Diagnostic Test (Pha) (Accu-Chek) 1 ea 02 XX Last administered on 02/19/17 02: 00; Admin Dose 1 EA; Start 01/31/17 at 02:00 Alprazolam (Xanax) 1 mg QHS PRN PO ANXIETY; Start 01/30/17 at 05:00 Docusate Sodium (Colace) 100 mg BID PO Last administered on 02/19/17 08:56; Admin Dose 100 MG; Start 01/30/17 at 09:00 Gabapentin (Neurontin) 100 mg BID PO Last administered on 02/19/17 08:56; Admin Dose 100 MG; Start 01/30/17 at 09:00 Acetaminophen/ Hydrocodone Bitart ([place] (10/325)) 1 tab Q6H PRN PO PAIN Last administered on 02/04/17 02:49; Admin Dose 1 TAB; Start 01/30/17 at 05:00 Miscellaneous Information 1 ea NOTE XX ; Start 01/30/17 at 05:00 Glucose (Glutose) 15 gm Q15M PRN PO DECREASED GLUCOSE; Start 01/30/17 at 05:00 Glucose (Glutose) 22.5 gm Q15M PRN PO DECREASED GLUCOSE; Start 01/30/17 at 05: 00 Dextrose (D50w Syringe) 25 ml Q15M PRN IV DECREASED GLUCOSE; Start 01/30/17 at 05:00 Dextrose (D50w Syringe) 50 ml Q15M PRN IV DECREASED GLUCOSE; Start 01/30/17 at 05:00 Glucagon (Glucagen) 1 mg Q15M PRN IM DECREASED GLUCOSE; Start 01/30/17 at 05:00 Glucose (Glutose) 15 gm Q15M PRN BUCCAL DECREASED GLUCOSE; Start 01/30/17 at 05 :00 Nitroglycerin (Nitroglycerin (Sl Tab) 0.4 Mg) 1 tab [id number] PRN SL CHEST PAIN ; Start 01/30/17 at 05:30 Heparin Sodium (Porcine) (Heparin (5000 Units/0.5 ml)) 5,000 unit Q8 SC Last administered on 02/10/17 14:12; Admin Dose 5,000 UNIT; Start 02/01/17 at 18:00 ; Status Future Hold Colchicine (Colchicine) 0.6 mg DAILY PO Last administered on 02/19/17 08:55; Admin Dose 0.6 MG; Start 02/03/17 at 09:00 Miscellaneous Information (Pending Santyl Order For Wound Care) This patient deleon... PRN PRN XX WOUND CARE; Start 02/02/17 at 17:30 Nystatin (Nystatin Powder) 1 applic BID TOP Last administered on 02/19/17 08:57 ; Admin Dose 1 APPLIC; Start 02/02/17 at 21:00 Hydromorphone HCl (Dilaudid) 1 mg Q6H PRN IV PAIN Last administered on 00:26; Admin Dose 1 MG; Start 02/04/17 at 14:30 Senna (Senokot) 2 tab BID PO Last administered on 02/19/17 08:56; Admin Dose 2 TAB; Start 02/05/17 at 13:00 Loratadine (Claritin) 10 mg DAILY PO Last administered on 02/19/17 08:56; Admin Dose 10 MG; Start 02/09/17 at 14:00 Acetaminophen/ Hydrocodone Bitart ([place] (5/325)) 1 tab Q6H PRN PO PAIN LEVEL 6 -10; Start 02/11/17 at 12:30 Ondansetron HCl (Zofran Inj) 4 mg Q6H PRN IV NAUSEA AND/OR VOMITING Last administered on 02/17/17 21:14; Admin Dose 4 MG; Start 02/11/17 at 12:30 Hydromorphone HCl (Dilaudid) 1 mg Q4H PRN IV PAIN Last administered on 08:42; Admin Dose 1 MG; Start 02/11/17 at 20:30 Furosemide (Lasix) 40 mg DAILY IV Last administered on 02/19/17 08:52; Admin Dose 40 MG; Start 02/14/17 at 09:30 Ferrous Sulfate (Feosol Liquid Cup) 300 mg TID PO Last administered on 08:55; Admin Dose 300 MG; Start 02/17/17 at 21:00 Methylprednisolone Sodium Succinate (Solu-Medrol) 40 mg DAILY IV Last administered on 02/19/17 08:43; Admin Dose 40 MG; Start 02/19/17 at 09:00 KOLBY KING MD Feb 19, 2017 10:18
--- NOTE | 2017-02-19 10:23 | CONS ---
Date/Time of Note Date/Time of Note DATE: 02/19/17 TIME: 10:19 Consult Date/Type/Reason Admit Date/Time Jan 30, 2017 at 02:47 Initial Consult Date 02/01/17 Type of Consultation: pulm Subjective Anxiety overnight. Left-sided chest discomfort. No nausea no vomiting. Still unsteady on feet. Objective Vital Signs Date Time Temp Pulse Resp B/P Pulse Ox O2 Delivery O2 Flow Rate FiO2 02/19/17 08:00 60 02/19/17 07:50 98.1 18 105/58 94 02/18/17 22:36 3.0 02/18/17 20:00 Nasal Cannula 02/17/17 05:33 31 Intake and Output 02/18/17 02/18/17 02/19/17 15:00 23:00 07:00 Intake Total 400 ml 400 ml Output Total 1700 ml Balance -1300 ml 400 ml Exam GENERAL: Morbidly obese lady on nasal cannula. VITAL SIGNS: per chart NECK: Supple. No JVD or lymphadenopathy. CARDIAC EXAM: S1, S2. No added sounds or murmurs. CHEST: Diminished air entry bilaterally, ABDOMEN: Soft, nontender. No guarding or rebound. EXTREMITIES: No cyanosis, clubbing edema +1 NEUROLOGIC: No neurological deficits. Results/Medications Result Diagram: 02/19/17 0603 02/19/17 0603 Results 24 hrs Laboratory Tests Test 02/18/17 11:28 02/18/17 17:43 02/18/17 20:58 02/19/17 02:34 Bedside Glucose 142 126 96 100 Test 02/19/17 06:03 02/19/17 08:13 White Blood Count 15.5 #H Red Blood Count 5.56 H Hemoglobin 12.3 Hematocrit 43.4 Mean Corpuscular Volume 78.1 L Mean Corpuscular Hemoglobin 22.1 L Mean Corpuscular Hemoglobin Concent 28.3 L Red Cell Distribution Width 19.1 H Platelet Count 304 Mean Platelet Volume 9.2 Neutrophils % 70.5 Lymphocytes % 18.4 Monocytes % 8.4 Eosinophils % 1.2 Basophils % 0.1 Nucleated Red Blood Cells % 0.0 Neutrophils # (Manual) 10.9 H Lymphocytes # 2.8 Monocytes # 1.3 H Eosinophils # 0.2 Basophils # 0.0 Nucleated Red Blood Cells # 0.0 Sodium Level 139 Potassium Level 3.7 Chloride Level 96 L Carbon Dioxide Level 37 H Anion Gap 10 Blood Urea Nitrogen 55 H Creatinine 1.05 H Glucose Level 96 Calcium Level 9.6 Phosphorus Level 4.0 Magnesium Level 2.1 Bedside Glucose 98 Medications Current Medications Lorazepam (Ativan) 0.5 mg Q8H PRN PO ANXIETY; Start 01/30/17 at 05:00 Acetaminophen (Tylenol Tab) 650 mg Q6H PRN PO PAIN LEVEL 1-3 OR FEVER Last administered on 01/30/17 12:04; Admin Dose 650 MG; Start 01/30/17 at 05:00 Diagnostic Test (Pha) (Accu-Chek) 1 ea 02 XX Last administered on 02/19/17 02: 00; Admin Dose 1 EA; Start 01/31/17 at 02:00 Alprazolam (Xanax) 1 mg QHS PRN PO ANXIETY; Start 01/30/17 at 05:00 Docusate Sodium (Colace) 100 mg BID PO Last administered on 02/19/17 08:56; Admin Dose 100 MG; Start 01/30/17 at 09:00 Gabapentin (Neurontin) 100 mg BID PO Last administered on 02/19/17 08:56; Admin Dose 100 MG; Start 01/30/17 at 09:00 Acetaminophen/ Hydrocodone Bitart ([place] (10325)) 1 tab Q6H PRN PO PAIN Last administered on 02/04/17 02:49; Admin Dose 1 TAB; Start 01/30/17 at 05:00 Miscellaneous Information 1 ea NOTE XX ; Start 01/30/17 at 05:00 Glucose (Glutose) 15 gm Q15M PRN PO DECREASED GLUCOSE; Start 01/30/17 at 05:00 Glucose (Glutose) 22.5 gm Q15M PRN PO DECREASED GLUCOSE; Start 01/30/17 at 05: 00 Dextrose (D50w Syringe) 25 ml Q15M PRN IV DECREASED GLUCOSE; Start 01/30/17 at 05:00 Dextrose (D50w Syringe) 50 ml Q15M PRN IV DECREASED GLUCOSE; Start 01/30/17 at 05:00 Glucagon (Glucagen) 1 mg Q15M PRN IM DECREASED GLUCOSE; Start 01/30/17 at 05:00 Glucose (Glutose) 15 gm Q15M PRN BUCCAL DECREASED GLUCOSE; Start 01/30/17 at 05 :00 Nitroglycerin (Nitroglycerin (Sl Tab) 0.4 Mg) 1 tab [id number] PRN SL CHEST PAIN ; Start 01/30/17 at 05:30 Heparin Sodium (Porcine) (Heparin (5000 Units/0.5 ml)) 5,000 unit Q8 SC Last administered on 02/10/17 14:12; Admin Dose 5,000 UNIT; Start 02/01/17 at 18:00 ; Status Future Hold Colchicine (Colchicine) 0.6 mg DAILY PO Last administered on 02/19/17 08:55; Admin Dose 0.6 MG; Start 02/03/17 at 09:00 Miscellaneous Information (Pending [facility]yl Order For Wound Care) This patient deleon... PRN PRN XX WOUND CARE; Start 02/02/17 at 17:30 Nystatin (Nystatin Powder) 1 applic BID TOP Last administered on 02/19/17 08:57 ; Admin Dose 1 APPLIC; Start 02/02/17 at 21:00 Hydromorphone HCl (Dilaudid) 1 mg Q6H PRN IV PAIN Last administered on 00:26; Admin Dose 1 MG; Start 02/04/17 at 14:30 Senna (Senokot) 2 tab BID PO Last administered on 02/19/17 08:56; Admin Dose 2 TAB; Start 02/05/17 at 13:00 Loratadine (Claritin) 10 mg DAILY PO Last administered on 02/19/17 08:56; Admin Dose 10 MG; Start 02/09/17 at 14:00 Acetaminophen/ Hydrocodone Bitart ([place] (5/325)) 1 tab Q6H PRN PO PAIN LEVEL 6 -10; Start 02/11/17 at 12:30 Ondansetron HCl (Zofran Inj) 4 mg Q6H PRN IV NAUSEA AND/OR VOMITING Last administered on 02/17/17 21:14; Admin Dose 4 MG; Start 02/11/17 at 12:30 Hydromorphone HCl (Dilaudid) 1 mg Q4H PRN IV PAIN Last administered on 08:42; Admin Dose 1 MG; Start 02/11/17 at 20:30 Furosemide (Lasix) 40 mg DAILY IV Last administered on 02/19/17 08:52; Admin Dose 40 MG; Start 02/14/17 at 09:30 Ferrous Sulfate (Feosol Liquid Cup) 300 mg TID PO Last administered on 08:55; Admin Dose 300 MG; Start 02/17/17 at 21:00 Methylprednisolone Sodium Succinate (Solu-Medrol) 40 mg DAILY IV Last administered on 02/19/17 08:43; Admin Dose 40 MG; Start 02/19/17 at 09:00 Assessment/Plan Chief Complaint/Hosp Course IMP: 1. Hypoxemic hypercapnic respiratory failure. Concern for airway edema requiring prolonged mechanical ventilation following pericardial drainage. Pericardial drain now removed.Now extubated. 2. History of pulmonary embolism. Underlying pulmonary edema on chest x-ray. 3. History of psychiatric disorder. 4. Morbid obesity. RECS: 1. Encourage nocturnal NIPPV. 2. Cardiac recs. 3. Monitor renal function. 4. Aspiration precautions 5. Continue DVT and GI prophylaxis 6. Continue Lasix. 7. dc steroids 8. Encourage out of bed agree with DC P[place] catheter 9. PT recs. Problems: TALIA ACEVEDO MD, [facility] Feb 19, 2017 10:23
[2017-02-19] MEDS: CALCIUM CARBONATE 500 MG CHEW TAB PO SCH ×2 (12:52→17:47)
[2017-02-19] MEDS: HEPARIN 5,000 UNIT/0.5 ML VIAL SC SCH ×2 (12:54→22:58)
[2017-02-20] VITALS (12 sets, daily range): BP systolic 112–132; BP diastolic 60–80; PULSE 57–79; RESP 19–21
[2017-02-20] MEDS: HYDROmorphONE 1 MG/ML SYG IV PRN ×5 (01:57→23:42)
[2017-02-20] MEDS: ACCU-CHEK XX SCH (02:00)
[2017-02-20 05:53] LABS: BASOPHILS % 0.1 % (0.0-2.0); EOSINOPHILS # 0.2 10^3/ul (0.0-0.5); EOSINOPHILS % 1.2 % (0.0-7.0); HEMATOCRIT 43.5 % (37.0-47.0); HEMOGLOBIN 12.8 g/dl (12.0-16.0); LYMPHOCYTES # 2.4 10^3/ul (0.8-2.9); LYMPHOCYTES % 19.7 % (15.0-51.0); MEAN CORPUSCULAR HEMOGLOBIN 22.9 pg (29.0-33.0); MEAN CORPUSCULAR HGB CONC 29.4 g/dl (32.0-37.0); MEAN CORPUSCULAR VOLUME 77.7 fl (82.0-101.0); MEAN PLATELET VOLUME 9.5 fl (7.4-10.4); MONOCYTE # 1.2 10^3/ul (0.3-0.9); MONOCYTES % 9.3 % (0.0-11.0); NEUTROPHILS % 68.5 % (39.0-77.0); PLATELET COUNT 284 10^3/UL (140-415); RED CELL DISTRIBUTION WIDTH 18.6 % (11.5-14.5); WHITE BLOOD COUNT 12.4 10^3/ul (4.8-10.8)
[2017-02-20] MEDS: HEPARIN 5,000 UNIT/0.5 ML VIAL SC SCH ×3 (06:09→22:00)
[2017-02-20 06:24] LABS: PHOSPHORUS 3.4 mg/dl (2.5-4.9)
[2017-02-20 06:26] LABS: CALCIUM 9.4 mg/dl (8.4-10.2); CREATININE 1.11 mg/dl (0.44-1.00); POTASSIUM 3.7 mmol/L (3.5-5.1)
[2017-02-20] MEDS: INSULIN ASPART [NOVOLOG] 3 ML PEN SC SCH ×4 (07:55→21:00)
[2017-02-20] MEDS: CALCIUM CARBONATE 500 MG CHEW TAB PO SCH ×4 (08:33→21:03)
[2017-02-20] MEDS: FUROSEMIDE 40 MG INJ IV SCH (08:34)
[2017-02-20] MEDS: METHYLPREDNISOLONE 40 MG INJ IV SCH (08:34)
[2017-02-20] MEDS: DOCUSATE SODIUM 100 MG CAP PO SCH ×2 (08:34→21:00)
[2017-02-20] MEDS: LORATADINE 10 MG TAB PO SCH (08:34)
[2017-02-20] MEDS: FERROUS SULFATE 60 MG/ML 5ML CUP PO SCH ×3 (08:35→21:03)
[2017-02-20] MEDS: GABAPENTIN 100 MG CAP PO SCH ×2 (08:35→21:03)
[2017-02-20] MEDS: COLCHICINE 0.6 MG TAB PO SCH (08:35)
[2017-02-20] MEDS: NYSTATIN 30 GM POWDER BTL TOP SCH ×2 (08:36→21:04)
[2017-02-20] MEDS: SENNA TAB PO SCH ×2 (09:00→21:00)
--- NOTE | 2017-02-20 10:03 | PN ---
Date/Time of Note Date/Time of Note DATE: 02/20/17 TIME: 10:01 Assessment/Plan VTE Prophylaxis VTE Prophylaxis Intervention: heparin Lines/Catheters IV [facility] PICC Line Central line still needed: Yes Urinary Cath still in place: No Assessment/Plan Chief Complaint/Hosp Course 1. Moderate to large pericardial effusion. S/P thoracotomy and pericardiocentesis on 02/11/2017. S/P removal of chest tube on 02/14/2017. Continue colchicine. No NSAIDs as per cardiology. Etiology of the pericardial effusion could be idiopathic. Pericardial fluid culture has been negative. Cytology negative for any malignancy. No evidence of any autoimmune process such as lupus. 2. Acute respiratory failure. Hypoxic and hypercapnic. The patient has known history of pulmonary embolism. The patient not a candidate for a CT angiogram because of the heavy weight. VQ scan was ordered. The patient could not tolerate VQ scan because of orthopnea. B/L LE venous Doppler negative for any DVT . Being followed by Pulmonology. Was intubated S/P surgery. Status post extubation on 02/15/2017. Continue inhaled bronchodilators and supplemental O2. 3. Essential hypertension. Continue antihypertensives. 4. Depression. Off antidepressants. 5. Type 2 diabetes mellitus. Continue sliding scale insulin. 6. Acute kidney injury. Resolved. Resolved. Will use nephrotoxic medications cautiously. Nephrology following. 7. Microcytic, hypochromic anemia. Underlying iron deficiency. Continue the patient on iron supplements. 8. Obesity. BMI of 46.3 kg/m. 10. Fluids, electrolytes, and nutrition. Regular consistency diet. 11. DVT prophylaxis. SQ heparin. 12. Plan. Continue current management. Continue PT. Obtain urine studies since the patient was complaining of dysuria. Case discussed with Dr. Hernandez. Problems: Subjective 24 Hr Interval Summary Free Text/Dictation Complains of dysuria. Exam/Review of Systems Vital Signs Vitals Vital Signs Date Time Temp Pulse Resp B/P Pulse Ox O2 Delivery O2 Flow Rate FiO2 02/20/17 08:01 57 02/20/17 07:19 98.0 20 121/63 95 02/20/17 01:26 3.0 02/19/17 20:00 Nasal Cannula 02/19/17 18:32 32 Intake and Output 02/19/17 02/19/17 02/20/17 15:00 23:00 07:00 Intake Total 800 ml Balance 800 ml Exam General: Morbidly obese 46 year-old female lying in bed orally intubated. HEENT: Normocephalic, atraumatic. Eyes: Anicteric sclerae, conjunctivae clear. ENT: Nasal septum midline. Oral mucosa is dry. Neck supple, no JVD noticed. Respiratory: Bilaterally diminished breath sounds. No use of accessory muscles of respiration. Cardiovascular: S1, S2 heard. Regular rate and rhythm. Abdomen: Soft, nontender, and nondistended. Bowel sounds positive in all 4 quadrants. Genitourinary: Deferred. Extremities: No cyanosis, no clubbing, no edema. Peripheral pulses palpable. Neurologic: Awake alert, and oriented. Skin: Normal skin turgor. No skin rashes. Results Result Diagram: 02/20/1736 02/20/17 0536 Results 24 hrs Laboratory Tests Test 02/19/17 12:30 02/19/17 17:53 02/19/17 21:08 02/20/17 02:07 Bedside Glucose 148 136 178 131 Test 02/20/17 05:36 02/20/17 07:57 White Blood Count 12.4 H Red Blood Count 5.60 H Hemoglobin 12.8 Hematocrit 43.5 Mean Corpuscular Volume 77.7 L Mean Corpuscular Hemoglobin 22.9 L Mean Corpuscular Hemoglobin Concent 29.4 L Red Cell Distribution Width 18.6 H Platelet Count 284 Mean Platelet Volume 9.5 Neutrophils % 68.5 Lymphocytes % 19.7 Monocytes % 9.3 Eosinophils % 1.2 Basophils % 0.1 Nucleated Red Blood Cells % 0.0 Neutrophils # (Manual) 8.5 H Lymphocytes # 2.4 Monocytes # 1.2 H Eosinophils # 0.2 Basophils # 0.0 Nucleated Red Blood Cells # 0.0 Sodium Level 139 Potassium Level 3.7 Chloride Level 95 L Carbon Dioxide Level 40 H Anion Gap 8 Blood Urea Nitrogen 50 H Creatinine 1.11 H Glucose Level 117 Calcium Level 9.4 Phosphorus Level 3.4 Magnesium Level 2.0 Bedside Glucose 97 Medications Medications Current Medications Lorazepam (Ativan) 0.5 mg Q8H PRN PO ANXIETY; Start 01/30/17 at 05:00 Acetaminophen (Tylenol Tab) 650 mg Q6H PRN PO PAIN LEVEL 1-3 OR FEVER Last administered on 01/30/17 12:04; Admin Dose 650 MG; Start 01/30/17 at 05:00 Diagnostic Test (Pha) (Accu-Chek) 1 ea 02 XX Last administered on 02/20/17 02: 00; Admin Dose 1 EA; Start 01/31/17 at 02:00 Alprazolam (Xanax) 1 mg QHS PRN PO ANXIETY; Start 01/30/17 at 05:00 Docusate Sodium (Colace) 100 mg BID PO Last administered on 02/20/17 08:34; Admin Dose 100 MG; Start 01/30/17 at 09:00 Gabapentin (Neurontin) 100 mg BID PO Last administered on 02/20/17 08:35; Admin Dose 100 MG; Start 01/30/17 at 09:00 Acetaminophen/ Hydrocodone Bitart ([place] (10)) 1 tab Q6H PRN PO PAIN Last administered on 02/04/17 02:49; Admin Dose 1 TAB; Start 01/30/17 at 05:00 Miscellaneous Information 1 ea NOTE XX ; Start 01/30/17 at 05:00 Glucose (Glutose) 15 gm Q15M PRN PO DECREASED GLUCOSE; Start 01/30/17 at 05:00 Glucose (Glutose) 22.5 gm Q15M PRN PO DECREASED GLUCOSE; Start 01/30/17 at 05: 00 Dextrose (D50w Syringe) 25 ml Q15M PRN IV DECREASED GLUCOSE; Start 01/30/17 at 05:00 Dextrose (D50w Syringe) 50 ml Q15M PRN IV DECREASED GLUCOSE; Start 01/30/17 at 05:00 Glucagon (Glucagen) 1 mg Q15M PRN IM DECREASED GLUCOSE; Start 01/30/17 at 05:00 Glucose (Glutose) 15 gm Q15M PRN BUCCAL DECREASED GLUCOSE; Start 01/30/17 at 05 :00 Nitroglycerin (Nitroglycerin (Sl Tab) 0.4 Mg) 1 tab [id number] PRN SL CHEST PAIN ; Start 01/30/17 at 05:30 Colchicine (Colchicine) 0.6 mg DAILY PO Last administered on 02/20/17 08:35; Admin Dose 0.6 MG; Start 02/03/17 at 09:00 Miscellaneous Information (Pending [facility] Order For Wound Care) This patient deleon... PRN PRN XX WOUND CARE; Start 02/02/17 at 17:30 Nystatin (Nystatin Powder) 1 applic BID TOP Last administered on 02/20/17 08: 36; Admin Dose 1 APPLIC; Start 02/02/17 at 21:00 Hydromorphone HCl (Dilaudid) 1 mg Q6H PRN IV PAIN Last administered on 01:57; Admin Dose 1 MG; Start 02/04/17 at 14:30 Senna (Senokot) 2 tab BID PO Last administered on 02/19/17 08:56; Admin Dose 2 TAB; Start 02/05/17 at 13:00 Loratadine (Claritin) 10 mg DAILY PO Last administered on 02/20/17 08:34; Admin Dose 10 MG; Start 02/09/17 at 14:00 Acetaminophen/ Hydrocodone Bitart ([place] (5/325)) 1 tab Q6H PRN PO PAIN LEVEL 6 -10; Start 02/11/17 at 12:30 Ondansetron HCl (Zofran Inj) 4 mg Q6H PRN IV NAUSEA AND/OR VOMITING Last administered on 02/17/17 21:14; Admin Dose 4 MG; Start 02/11/17 at 12:30 Hydromorphone HCl (Dilaudid) 1 mg Q4H PRN IV PAIN Last administered on 07:52; Admin Dose 1 MG; Start 02/11/17 at 20:30 Furosemide (Lasix) 40 mg DAILY IV Last administered on 02/20/17 08:34; Admin Dose 40 MG; Start 02/14/17 at 09:30 Ferrous Sulfate (Feosol Liquid Cup) 300 mg TID PO Last administered on 08:35; Admin Dose 300 MG; Start 02/17/17 at 21:00 Methylprednisolone Sodium Succinate (Solu-Medrol) 40 mg DAILY IV Last administered on 02/20/17 08:34; Admin Dose 40 MG; Start 02/19/17 at 09:00 Heparin Sodium (Porcine) (Heparin (5000 Units/0.5 ml)) 5,000 unit Q8 SC Last administered on 02/20/17 06:09; Admin Dose 5,000 UNIT; Start 02/19/17 at 14:00 SOLITARIO LAMBERT NP Feb 20, 2017 10:03
--- NOTE | 2017-02-20 10:11 | PN ---
DATE: 02/20/2017 SUBJECTIVE DATA: The patient reports some mild intermittent chest discomfort, worse with movement but her breathing is stable. She is status post pericardial window on February 11. CURRENT PROBLEMS OF PERICARDIAL EFFUSION STATUS POST WINDOW: 1. No malignant cells. 2. Preserved ejection fraction. 3. Respiratory failure. 4. Morbid obesity. 5. Obstructive sleep apnea. 6. Mild bradycardia will hold AV alan blocking agents. PHYSICAL EXAMINATION: GENERAL: She is in no distress. Morbidly obese. VITAL SIGNS: Temperature 98, pulse 57, blood pressure 120/62, oxygen saturation 95 percent. NECK: No jugular venous distention. LUNGS: Clear. HEART: Was regular rate and rhythm. ABDOMEN: Soft, nontender, nondistended. EXTREMITIES: Reveal no edema. CURRENT MEDICATIONS: 1. Subcutaneous heparin. 2. Solu-Medrol. 3. Feosol. 4. Furosemide 40 mg IV daily. 5. Dilaudid. 6. Zofran. 7. Oratadine. 8. Senna. 9. Colchicine. 10. Xanax. LAB RESULTS: White count 12.4, down trending. Hematocrit 43.5, sodium 139, potassium 3.7, BUN 50, creatinine 1.11. Dictated By: Nguyễn Prater MD /shania/tanisha /Document#: [id number]
[2017-02-20 10:40] LABS: ADD UMIC YES; UR ASCORBIC ACID NEGATIVE (NEGATIVE); UR BACTERIA MODERATE /HPF (NONE SEEN); UR BILIRUBIN (Dip) NEGATIVE (NEGATIVE); UR BLOOD (Dip) 2+ mg/dL (NEGATIVE); UR CLARITY CLEAR (CLEAR); UR COLOR YELLOW (YELLOW); UR GLUCOSE (Dip) NEGATIVE (NEGATIVE); UR KETONES (Dip) NEGATIVE (NEGATIVE); UR LEUKOCYTE ESTERASE (Dip) 1+ Leu/ul (NEGATIVE); UR NITRITE (Dip) POSITIVE (NEGATIVE); UR RBC 29 /HPF (0-5); UR SPECIFIC GRAVITY (Dip) 1.008 (1.003-1.030); UR TOTAL PROTEIN (Dip) NEGATIVE (NEGATIVE); UR UROBILINOGEN (Dip) NEGATIVE (NEGATIVE)
--- NOTE | 2017-02-20 13:39 | CONS ---
Date/Time of Note Date/Time of Note DATE: 02/20/17 TIME: 13:37 Consult Date/Type/Reason Admit Date/Time Jan 30, 2017 at 02:47 Initial Consult Date 02/01/17 Type of Consultation: pulm Subjective Anxious, feels overall better. Objective Vital Signs Date Time Temp Pulse Resp B/P Pulse Ox O2 Delivery O2 Flow Rate FiO2 02/20/17 12:15 Nasal Cannula 2.0 02/20/17 11:31 98.5 62 19 119/60 92 02/19/17 18:32 32 Intake and Output 02/19/17 02/19/17 02/20/17 15:00 23:00 07:00 Intake Total 800 ml Balance 800 ml Exam GENERAL: Morbidly obese lady on nasal cannula. VITAL SIGNS: per chart NECK: Supple. No JVD or lymphadenopathy. CARDIAC EXAM: S1, S2. No added sounds or murmurs. CHEST: Diminished air entry bilaterally, ABDOMEN: Soft, nontender. No guarding or rebound. EXTREMITIES: No cyanosis, clubbing edema +1 NEUROLOGIC: No neurological deficits. Results/Medications Result Diagram: 02/20/17 0536 02/20/17 0536 Results 24 hrs Laboratory Tests Test 02/19/17 17:53 02/19/17 21:08 02/20/17 02:07 02/20/17 05:36 Bedside Glucose 136 178 131 White Blood Count 12.4 H Red Blood Count 5.60 H Hemoglobin 12.8 Hematocrit 43.5 Mean Corpuscular Volume 77.7 L Mean Corpuscular Hemoglobin 22.9 L Mean Corpuscular Hemoglobin Concent 29.4 L Red Cell Distribution Width 18.6 H Platelet Count 284 Mean Platelet Volume 9.5 Neutrophils % 68.5 Lymphocytes % 19.7 Monocytes % 9.3 Eosinophils % 1.2 Basophils % 0.1 Nucleated Red Blood Cells % 0.0 Neutrophils # (Manual) 8.5 H Lymphocytes # 2.4 Monocytes # 1.2 H Eosinophils # 0.2 Basophils # 0.0 Nucleated Red Blood Cells # 0.0 Sodium Level 139 Potassium Level 3.7 Chloride Level 95 L Carbon Dioxide Level 40 H Anion Gap 8 Blood Urea Nitrogen 50 H Creatinine 1.11 H Glucose Level 117 Calcium Level 9.4 Phosphorus Level 3.4 Magnesium Level 2.0 Test 02/20/17 07:57 02/20/17 09:56 02/20/17 12:31 Bedside Glucose 97 140 Urine Color YELLOW Urine Clarity CLEAR Urine pH 6.0 Urine Specific [place] 1.008 Urine Ketones NEGATIVE Urine Nitrite POSITIVE A Urine Bilirubin NEGATIVE Urine Urobilinogen NEGATIVE Urine Leukocyte Esterase 1+ H Urine Microscopic RBC 29 H Urine Microscopic WBC 13 H Urine Bacteria MODERATE Urine Hemoglobin 2+ H Urine Glucose NEGATIVE Urine Total Protein NEGATIVE Medications Current Medications Lorazepam (Ativan) 0.5 mg Q8H PRN PO ANXIETY; Start 01/30/17 at 05:00 Acetaminophen (Tylenol Tab) 650 mg Q6H PRN PO PAIN LEVEL 1-3 OR FEVER Last administered on 01/30/17 12:04; Admin Dose 650 MG; Start 01/30/17 at 05:00 Diagnostic Test (Pha) (Accu-Chek) 1 ea 02 XX Last administered on 02/20/17 02: 00; Admin Dose 1 EA; Start 01/31/17 at 02:00 Alprazolam (Xanax) 1 mg QHS PRN PO ANXIETY; Start 01/30/17 at 05:00 Docusate Sodium (Colace) 100 mg BID PO Last administered on 02/20/17 08:34; Admin Dose 100 MG; Start 01/30/17 at 09:00 Gabapentin (Neurontin) 100 mg BID PO Last administered on 02/20/17 08:35; Admin Dose 100 MG; Start 01/30/17 at 09:00 Acetaminophen/ Hydrocodone Bitart ([place] (10/325)) 1 tab Q6H PRN PO PAIN Last administered on 02/04/17 02:49; Admin Dose 1 TAB; Start 01/30/17 at 05:00 Miscellaneous Information 1 ea NOTE XX ; Start 01/30/17 at 05:00 Glucose (Glutose) 15 gm Q15M PRN PO DECREASED GLUCOSE; Start 01/30/17 at 05:00 Glucose (Glutose) 22.5 gm Q15M PRN PO DECREASED GLUCOSE; Start 01/30/17 at 05: 00 Dextrose (D50w Syringe) 25 ml Q15M PRN IV DECREASED GLUCOSE; Start 01/30/17 at 05:00 Dextrose (D50w Syringe) 50 ml Q15M PRN IV DECREASED GLUCOSE; Start 01/30/17 at 05:00 Glucagon (Glucagen) 1 mg Q15M PRN IM DECREASED GLUCOSE; Start 01/30/17 at 05:00 Glucose (Glutose) 15 gm Q15M PRN BUCCAL DECREASED GLUCOSE; Start 01/30/17 at 05 :00 Nitroglycerin (Nitroglycerin (Sl Tab) 0.4 Mg) 1 tab [id number] PRN SL CHEST PAIN ; Start 01/30/17 at 05:30 Colchicine (Colchicine) 0.6 mg DAILY PO Last administered on 02/20/17 08:35; Admin Dose 0.6 MG; Start 02/03/17 at 09:00 [facility] This patient deleon... PRN PRN XX WOUND CARE; Start 02/02/17 at 17:30 Nystatin (Nystatin Powder) 1 applic BID TOP Last administered on 02/20/17 08: 36; Admin Dose 1 APPLIC; Start 02/02/17 at 21:00 Hydromorphone HCl (Dilaudid) 1 mg Q6H PRN IV PAIN Last administered on 12:17; Admin Dose 1 MG; Start 02/04/17 at 14:30 Senna (Senokot) 2 tab BID PO Last administered on 02/19/17 08:56; Admin Dose 2 TAB; Start 02/05/17 at 13:00 Loratadine (Claritin) 10 mg DAILY PO Last administered on 02/20/17 08:34; Admin Dose 10 MG; Start 02/09/17 at 14:00 Acetaminophen/ Hydrocodone Bitart ([place] (5/325)) 1 tab Q6H PRN PO PAIN LEVEL 6 -10; Start 02/11/17 at 12:30 Ondansetron HCl (Zofran Inj) 4 mg Q6H PRN IV NAUSEA AND/OR VOMITING Last administered on 02/17/17 21:14; Admin Dose 4 MG; Start 02/11/17 at 12:30 Hydromorphone HCl (Dilaudid) 1 mg Q4H PRN IV PAIN Last administered on 07:52; Admin Dose 1 MG; Start 02/11/17 at 20:30 Furosemide (Lasix) 40 mg DAILY IV Last administered on 02/20/17 08:34; Admin Dose 40 MG; Start 02/14/17 at 09:30 Ferrous Sulfate (Feosol Liquid Cup) 300 mg TID PO Last administered on 12:49; Admin Dose 300 MG; Start 02/17/17 at 21:00 Methylprednisolone Sodium Succinate (Solu-Medrol) 40 mg DAILY IV Last administered on 02/20/17 08:34; Admin Dose 40 MG; Start 02/19/17 at 09:00 Heparin Sodium (Porcine) (Heparin (5000 Units/0.5 ml)) 5,000 unit Q8 SC Last administered on 02/20/17 06:09; Admin Dose 5,000 UNIT; Start 02/19/17 at 14:00 Assessment/Plan Chief Complaint/Hosp Course IMP: 1. Hypoxemic hypercapnic respiratory failure. Concern for airway edema requiring prolonged mechanical ventilation following pericardial drainage. Pericardial drain now removed.Now extubated. 2. History of pulmonary embolism. Underlying pulmonary edema on chest x-ray. 3. History of psychiatric disorder. 4. Morbid obesity. RECS: 1. Encourage nocturnal NIPPV. 2. Cardiac recs. repeat echo as outpatient. 3. Monitor renal function. 4. Aspiration precautions 5. Continue DVT and GI prophylaxis 6. consider dc diuretics, clinically looks dry. 7. dc steroids 8. Encourage out of bed 9. PT recs. dc planning. Problems: TALIA ACEVEDO MD, [facility] Feb 20, 2017 13:39
--- NOTE | 2017-02-20 20:43 | RADRPT ---
PROCEDURE: XR Chest. CLINICAL INDICATION: Cough, dyspnea TECHNIQUE: Anterior chest x-ray. COMPARISON: 02/17/2017 FINDINGS: Hazy opacities in the left lung base with blunting left costophrenic angle. Aeration left lung base with partially obscured left hemidiaphragm. The upper lung zones are clear. Left subclavian central venous catheter demonstrates stable and satisfactory position. There is no evidence of pneumothorax. The cardiomediastinal silhouette is unremarkable. The soft tissues are normal. Osseous structures are unremarkable. IMPRESSION: 1. Hazy opacity in the left lung base with blunting of costophrenic angles suggesting small pleural effusion. 2. Compressive atelectasis versus infiltrate in left lung base with partially obscured left hemidia phragm, improved compared to previous exam. 3. Cardiomegaly. 4. Interval removal of nasogastric tube. RPTAT: HLDM .Edward Reveles MD, MD Date Time Electronically viewed and signed by .Edward Reveles MD, on 02/20/2017 20:42 .M/
[2017-02-21] VITALS (12 sets, daily range): BP systolic 109–129; BP diastolic 59–79; PULSE 55–92; RESP 18–20
[2017-02-21] MEDS: ACCU-CHEK XX SCH (02:00)
[2017-02-21 06:43] LABS: BASOPHILS % 0.2 % (0.0-2.0); EOSINOPHILS # 0.1 10^3/ul (0.0-0.5); EOSINOPHILS % 0.9 % (0.0-7.0); HEMATOCRIT 43.2 % (37.0-47.0); HEMOGLOBIN 12.6 g/dl (12.0-16.0); LYMPHOCYTES # 2.8 10^3/ul (0.8-2.9); MEAN CORPUSCULAR HEMOGLOBIN 22.9 pg (29.0-33.0); MEAN CORPUSCULAR HGB CONC 29.2 g/dl (32.0-37.0); MEAN CORPUSCULAR VOLUME 78.4 fl (82.0-101.0); MEAN PLATELET VOLUME 9.6 fl (7.4-10.4); MONOCYTE # 1.1 10^3/ul (0.3-0.9); MONOCYTES % 9.5 % (0.0-11.0); NEUTROPHILS % 65.2 % (39.0-77.0); PLATELET COUNT 254 10^3/UL (140-415); RED BLOOD COUNT 5.51 10^6/ul (4.20-5.40); RED CELL DISTRIBUTION WIDTH 18.8 % (11.5-14.5)
[2017-02-21] MEDS: HEPARIN 5,000 UNIT/0.5 ML VIAL SC SCH ×3 (06:49→22:22)
[2017-02-21 07:11] LABS: MAGNESIUM 1.9 mg/dl (1.7-2.5); PHOSPHORUS 3.5 mg/dl (2.5-4.9)
[2017-02-21 07:14] LABS: ALBUMIN 3.8 g/dl (3.3-4.9); ALBUMIN/GLOBULIN RATIO 0.88; BILIRUBIN,INDIRECT 0.5 mg/dl (0-1.1); BILIRUBIN,TOTAL 0.5 mg/dl (0.2-1.3); CALCIUM 9.4 mg/dl (8.4-10.2); CREATININE 1.01 mg/dl (0.44-1.00); POTASSIUM 3.3 mmol/L (3.5-5.1); TOTAL PROTEIN 8.1 g/dl (6.1-8.1)
[2017-02-21] MEDS: INSULIN ASPART [NOVOLOG] 3 ML PEN SC SCH ×4 (07:55→21:00)
[2017-02-21] MEDS: LORATADINE 10 MG TAB PO SCH (08:18)
[2017-02-21] MEDS: FERROUS SULFATE 60 MG/ML 5ML CUP PO SCH ×3 (08:18→21:00)
[2017-02-21] MEDS: COLCHICINE 0.6 MG TAB PO SCH (08:18)
[2017-02-21] MEDS: DOCUSATE SODIUM 100 MG CAP PO SCH ×2 (08:18→21:00)
[2017-02-21] MEDS: GABAPENTIN 100 MG CAP PO SCH ×2 (08:18→21:00)
[2017-02-21] MEDS: NYSTATIN 30 GM POWDER BTL TOP SCH ×2 (08:19→21:00)
[2017-02-21] MEDS: SENNA TAB PO SCH ×2 (08:19→21:00)
[2017-02-21] MEDS: HYDROmorphONE 1 MG/ML SYG IV PRN ×3 (08:24→22:24)
--- NOTE | 2017-02-21 10:45 | CONS ---
Date/Time of Note Date/Time of Note DATE: 02/21/17 TIME: 10:42 Assessment/Plan Assessment/Plan Additional Assessment/Plan Assessment and recommendations; 1. Patient admitted with shortness of breath discovered to have large pericardial effusion status post pericardial drain placement with subsequent removal with marked overall clinical improvement. 2. Likely underlying obesity/hypoventilation syndrome. 3. Status post prolonged mechanical ventilation. Continue current treatment. Consider discharge to a rehab center. Consultation Date/Type/Reason Admit Date/Time Jan 30, 2017 at 02:47 Initial Consult Date 02/01/17 Type of Consultation: pulm 24 HR Interval Summary Free Text/Dictation Patient condition is stable. Complains of very minimal shortness of breath upon exertion. Denies any chest pain, coughing. General exam; middle-aged woman, morbidly obese, currently in no distress. Awake and alert. Exam/Review of Systems Vital Signs Vitals Vital Signs Date Time Temp Pulse Resp B/P Pulse Ox O2 Delivery O2 Flow Rate FiO2 02/21/17 08:23 97.9 51 18 109/59 92 02/21/17 08:00 Nasal Cannula 2.0 02/19/17 18:32 32 Intake and Output 02/20/17 02/20/17 02/21/17 15:00 23:00 07:00 Intake Total 650 ml 500 ml Output Total 60 ml Balance -60 ml 650 ml 500 ml Exam HEENT exam; supple neck, JVD difficult to see because of short neck. Pharynx is clear. Patient has good dentition. No neck masses. Chest exam; clear to auscultation. S1-S2 audible, no murmurs. Regular rhythm. Abdomen exam; soft, nontender. Protuberant. Bowel sounds audible. Extremity exam; no peripheral edema. FARM REPORTER exam; no focal deficit. Results Result Diagram: 02/21/17 0600 02/21/17 0600 Results 24 hrs Laboratory Tests Test 02/20/17 12:31 02/20/17 17:28 02/20/17 21:01 02/21/17 02:27 Bedside Glucose 140 119 124 112 Test 02/21/17 06:00 02/21/17 08:14 White Blood Count 12.0 H Red Blood Count 5.51 H Hemoglobin 12.6 Hematocrit 43.2 Mean Corpuscular Volume 78.4 L Mean Corpuscular Hemoglobin 22.9 L Mean Corpuscular Hemoglobin Concent 29.2 L Red Cell Distribution Width 18.8 H Platelet Count 254 Mean Platelet Volume 9.6 Neutrophils % 65.2 Lymphocytes % 23.0 Monocytes % 9.5 Eosinophils % 0.9 Basophils % 0.2 Nucleated Red Blood Cells % 0.0 Neutrophils # (Manual) 7.9 H Lymphocytes # 2.8 Monocytes # 1.1 H Eosinophils # 0.1 Basophils # 0.0 Nucleated Red Blood Cells # 0.0 Sodium Level 139 Potassium Level 3.3 L Chloride Level 95 L Carbon Dioxide Level 37 H Anion Gap 10 Blood Urea Nitrogen 41 H Creatinine 1.01 H Glucose Level 113 Calcium Level 9.4 Phosphorus Level 3.5 Magnesium Level 1.9 Total Bilirubin 0.5 Direct Bilirubin 0.00 Indirect Bilirubin 0.5 Aspartate Amino Transf (AST/SGOT) 30 Alanine Aminotransferase (ALT/SGPT) 47 Alkaline Phosphatase 94 Total Protein 8.1 Albumin 3.8 Globulin 4.30 H Albumin/Globulin Ratio 0.88 Bedside Glucose 109 Medications Medications Current Medications Lorazepam (Ativan) 0.5 mg Q8H PRN PO ANXIETY; Start 01/30/17 at 05:00 Acetaminophen (Tylenol Tab) 650 mg Q6H PRN PO PAIN LEVEL 1-3 OR FEVER Last administered on 01/30/17 12:04; Admin Dose 650 MG; Start 01/30/17 at 05:00 Diagnostic Test (Pha) (Accu-Chek) 1 ea 02 XX Last administered on 02/21/17 02: 00; Admin Dose 1 EA; Start 01/31/17 at 02:00 Alprazolam (Xanax) 1 mg QHS PRN PO ANXIETY; Start 01/30/17 at 05:00 Docusate Sodium (Colace) 100 mg BID PO Last administered on 02/20/17 08:34; Admin Dose 100 MG; Start 01/30/17 at 09:00 Gabapentin (Neurontin) 100 mg BID PO Last administered on 02/21/17 08:18; Admin Dose 100 MG; Start 01/30/17 at 09:00 Acetaminophen/ Hydrocodone Bitart ([place] (10/325)) 1 tab Q6H PRN PO PAIN Last administered on 02/04/17 02:49; Admin Dose 1 TAB; Start 01/30/17 at 05:00 Miscellaneous Information 1 ea NOTE XX ; Start 01/30/17 at 05:00 Glucose (Glutose) 15 gm Q15M PRN PO DECREASED GLUCOSE; Start 01/30/17 at 05:00 Glucose (Glutose) 22.5 gm Q15M PRN PO DECREASED GLUCOSE; Start 01/30/17 at 05: 00 Dextrose (D50w Syringe) 25 ml Q15M PRN IV DECREASED GLUCOSE; Start 01/30/17 at 05:00 Dextrose (D50w Syringe) 50 ml Q15M PRN IV DECREASED GLUCOSE; Start 01/30/17 at 05:00 Glucagon (Glucagen) 1 mg Q15M PRN IM DECREASED GLUCOSE; Start 01/30/17 at 05:00 Glucose (Glutose) 15 gm Q15M PRN BUCCAL DECREASED GLUCOSE; Start 01/30/17 at 05 :00 Nitroglycerin (Nitroglycerin (Sl Tab) 0.4 Mg) 1 tab [id number] PRN SL CHEST PAIN ; Start 01/30/17 at 05:30 Colchicine (Colchicine) 0.6 mg DAILY PO Last administered on 02/21/17 08:18; Admin Dose 0.6 MG; Start 02/03/17 at 09:00 Miscellaneous Information (Pending [facility] Order For Wound Care) This patient deleon... PRN PRN XX WOUND CARE; Start 02/02/17 at 17:30 Nystatin (Nystatin Powder) 1 applic BID TOP Last administered on 02/21/17 08: 19; Admin Dose 1 APPLIC; Start 02/02/17 at 21:00 Hydromorphone HCl (Dilaudid) 1 mg Q6H PRN IV PAIN Last administered on 08:24; Admin Dose 1 MG; Start 02/04/17 at 14:30 Senna (Senokot) 2 tab BID PO Last administered on 02/19/17 08:56; Admin Dose 2 TAB; Start 02/05/17 at 13:00 Loratadine (Claritin) 10 mg DAILY PO Last administered on 02/21/17 08:18; Admin Dose 10 MG; Start 02/09/17 at 14:00 Acetaminophen/ Hydrocodone Bitart ([place] (5/325)) 1 tab Q6H PRN PO PAIN LEVEL 6 -10; Start 02/11/17 at 12:30 Ondansetron HCl (Zofran Inj) 4 mg Q6H PRN IV NAUSEA AND/OR VOMITING Last administered on 02/17/17 21:14; Admin Dose 4 MG; Start 02/11/17 at 12:30 Hydromorphone HCl (Dilaudid) 1 mg Q4H PRN IV PAIN Last administered on 16:14; Admin Dose 1 MG; Start 02/11/17 at 20:30 Ferrous Sulfate (Feosol Liquid Cup) 300 mg TID PO Last administered on 08:18; Admin Dose 300 MG; Start 02/17/17 at 21:00 Heparin Sodium (Porcine) (Heparin (5000 Units/0.5 ml)) 5,000 unit Q8 SC Last administered on 02/21/17 06:49; Admin Dose 5,000 UNIT; Start 02/19/17 at 14:00 AWA MASSEY Feb 21, 2017 10:45
[2017-02-21] MEDS: CALCIUM CARBONATE 500 MG CHEW TAB PO SCH ×2 (12:05→17:08)
--- NOTE | 2017-02-21 14:35 | CONS ---
Date/Time of Note Date/Time of Note DATE: 02/21/17 TIME: 14:27 Assessment/Plan Assessment/Plan Additional Assessment/Plan Pericardial effusion s/p pericardial window 02/11/17 Preserved ejection fraction Respiratory failure, extubated Supermorbid obesity Obstructive sleep apnea -no malignant cells in the pericardial fluid. Would continue diuretics as per our nephrology colleagues. No AV alan blocking agents secondary to bradycardia. DC planning Consultation Date/Type/Reason Admit Date/Time Jan 30, 2017 at 02:47 Initial Consult Date 02/01/17 Type of Consultation: cv 24 HR Interval Summary Free Text/Dictation Feeling better, less shortness of breath Exam/Review of Systems Vital Signs Vitals Vital Signs Date Time Temp Pulse Resp B/P Pulse Ox O2 Delivery O2 Flow Rate FiO2 02/21/17 12:45 65 02/21/17 12:30 97.9 18 129/69 93 02/21/17 08:00 Nasal Cannula 2.0 02/19/17 18:32 32 Intake and Output 02/20/17 02/20/17 02/21/17 15:00 23:00 07:00 Intake Total 650 ml 500 ml Output Total 60 ml Balance -60 ml 650 ml 500 ml Exam Constitutional: alert, obese, oriented Head: normocephalic Respiratory: other (Coarse breath sounds bilaterally, no wheezing) Cardiovascular: other (S1-S2 heard), regular rate and rhythm Gastrointestinal: bowel sounds, non-tender, soft Extremities: edema Results Result Diagram: 02/21/17 0600 02/21/17 0600 Results 24 hrs Laboratory Tests Test 02/20/17 17:28 02/20/17 21:01 02/21/17 02:27 02/21/17 06:00 Bedside Glucose 119 124 112 White Blood Count 12.0 H Red Blood Count 5.51 H Hemoglobin 12.6 Hematocrit 43.2 Mean Corpuscular Volume 78.4 L Mean Corpuscular Hemoglobin 22.9 L Mean Corpuscular Hemoglobin Concent 29.2 L Red Cell Distribution Width 18.8 H Platelet Count 254 Mean Platelet Volume 9.6 Neutrophils % 65.2 Lymphocytes % 23.0 Monocytes % 9.5 Eosinophils % 0.9 Basophils % 0.2 Nucleated Red Blood Cells % 0.0 Neutrophils # (Manual) 7.9 H Lymphocytes # 2.8 Monocytes # 1.1 H Eosinophils # 0.1 Basophils # 0.0 Nucleated Red Blood Cells # 0.0 Sodium Level 139 Potassium Level 3.3 L Chloride Level 95 L Carbon Dioxide Level 37 H Anion Gap 10 Blood Urea Nitrogen 41 H Creatinine 1.01 H Glucose Level 113 Calcium Level 9.4 Phosphorus Level 3.5 Magnesium Level 1.9 Total Bilirubin 0.5 Direct Bilirubin 0.00 Indirect Bilirubin 0.5 Aspartate Amino Transf (AST/SGOT) 30 Alanine Aminotransferase (ALT/SGPT) 47 Alkaline Phosphatase 94 Total Protein 8.1 Albumin 3.8 Globulin 4.30 H Albumin/Globulin Ratio 0.88 Test 02/21/17 08:14 02/21/17 12:05 Bedside Glucose 109 92 Medications Medications Current Medications Lorazepam (Ativan) 0.5 mg Q8H PRN PO ANXIETY; Start 01/30/17 at 05:00 Acetaminophen (Tylenol Tab) 650 mg Q6H PRN PO PAIN LEVEL 1-3 OR FEVER Last administered on 01/30/17 12:04; Admin Dose 650 MG; Start 01/30/17 at 05:00 Diagnostic Test (Pha) (Accu-Chek) 1 ea 02 XX Last administered on 02/21/17 02: 00; Admin Dose 1 EA; Start 01/31/17 at 02:00 Alprazolam (Xanax) 1 mg QHS PRN PO ANXIETY; Start 01/30/17 at 05:00 Docusate Sodium (Colace) 100 mg BID PO Last administered on 02/20/17 08:34; Admin Dose 100 MG; Start 01/30/17 at 09:00 Gabapentin (Neurontin) 100 mg BID PO Last administered on 02/21/17 08:18; Admin Dose 100 MG; Start 01/30/17 at 09:00 Acetaminophen/ Hydrocodone Bitart ([place] (10/325)) 1 tab Q6H PRN PO PAIN Last administered on 02/04/17 02:49; Admin Dose 1 TAB; Start 01/30/17 at 05:00 Miscellaneous Information 1 ea NOTE XX ; Start 01/30/17 at 05:00 Glucose (Glutose) 15 gm Q15M PRN PO DECREASED GLUCOSE; Start 01/30/17 at 05:00 Glucose (Glutose) 22.5 gm Q15M PRN PO DECREASED GLUCOSE; Start 01/30/17 at 05: 00 Dextrose (D50w Syringe) 25 ml Q15M PRN IV DECREASED GLUCOSE; Start 01/30/17 at 05:00 Dextrose (D50w Syringe) 50 ml Q15M PRN IV DECREASED GLUCOSE; Start 01/30/17 at 05:00 Glucagon (Glucagen) 1 mg Q15M PRN IM DECREASED GLUCOSE; Start 01/30/17 at 05:00 Glucose (Glutose) 15 gm Q15M PRN BUCCAL DECREASED GLUCOSE; Start 01/30/17 at 05 :00 Nitroglycerin (Nitroglycerin (Sl Tab) 0.4 Mg) 1 tab [id number] PRN SL CHEST PAIN ; Start 01/30/17 at 05:30 Colchicine (Colchicine) 0.6 mg DAILY PO Last administered on 02/21/17 08:18; Admin Dose 0.6 MG; Start 02/03/17 at 09:00 Misc[facility] This patient deleon... PRN PRN XX WOUND CARE; Start 02/02/17 at 17:30 Nystatin (Nystatin Powder) 1 applic BID TOP Last administered on 02/21/17 08: 19; Admin Dose 1 APPLIC; Start 02/02/17 at 21:00 Hydromorphone HCl (Dilaudid) 1 mg Q6H PRN IV PAIN Last administered on 08:24; Admin Dose 1 MG; Start 02/04/17 at 14:30 Senna (Senokot) 2 tab BID PO Last administered on 02/19/17 08:56; Admin Dose 2 TAB; Start 02/05/17 at 13:00 Loratadine (Claritin) 10 mg DAILY PO Last administered on 02/21/17 08:18; Admin Dose 10 MG; Start 02/09/17 at 14:00 Acetaminophen/ Hydrocodone Bitart ([place] (5/325)) 1 tab Q6H PRN PO PAIN LEVEL 6 -10; Start 02/11/17 at 12:30 Ondansetron HCl (Zofran Inj) 4 mg Q6H PRN IV NAUSEA AND/OR VOMITING Last administered on 02/17/17 21:14; Admin Dose 4 MG; Start 02/11/17 at 12:30 Hydromorphone HCl (Dilaudid) 1 mg Q4H PRN IV PAIN Last administered on 14:01; Admin Dose 1 MG; Start 02/11/17 at 20:30 Ferrous Sulfate (Feosol Liquid Cup) 300 mg TID PO Last administered on 13:52; Admin Dose 300 MG; Start 02/17/17 at 21:00 Heparin Sodium (Porcine) (Heparin (5000 Units/0.5 ml)) 5,000 unit Q8 SC Last administered on 02/21/17 14:00; Admin Dose 5,000 UNIT; Start 02/19/17 at 14:00 Sean Gallego DO Feb 21, 2017 14:35
--- NOTE | 2017-02-21 15:47 | PN ---
Date/Time of Note Date/Time of Note DATE: 02/21/17 TIME: 15:44 Assessment/Plan VTE Prophylaxis VTE Prophylaxis Intervention: heparin Lines/Catheters IV [facility] P[facility] Line Urinary Cath still in place: No Assessment/Plan Chief Complaint/Hosp Course Assessment and plan 1. Moderate to large pericardial effusion. Patient status post thoracotomy and pericardiocentesis on February 11, 2017. There was also removal of chest tube on February 14, 2017. On colchicine. No nonsteroidal anti-inflammatory medication as per stereotype finisher at this time. Suspect etiology of pericardial effusion idiopathic consider negative fluid culture and cytology negative for malignancy. No evidence of autoimmune process such as lupus. 2. Acute respiratory failure likely secondary to #1. Of note patient does have a history of pulmonary embolism however is not a CT scan for angiogram due to her heavy weight and VQ scan was also not able to be done due to her orthopnea. Bilateral lower extremity Doppler was negative for any DVT. Continue with foot and ankle surgeon recommendations. Titrate off O2 as tolerated. 3. Essential hypertension. Continue antihypertensives and adjust needed. 4. Depression. Stable at present. Will monitor for now. 5. Type 2 diabetes. On insulin regimen. Adjust needed. 6. Acute kidney injury. Stable at present. Docking Saw Operator is following. 7. Morbid obesity. Weight reduction was advised. Disposition plan: Continue physical therapy taper off O2 as tolerated. Discharged in medically stable for by consultants Discussed plan of care with Dr. Hernandez Problems: Subjective 24 Hr Interval Summary Free Text/Dictation Reports better breathing at this time. No specific complaints. Family at bedside per Exam/Review of Systems Vital Signs Vitals Vital Signs Date Time Temp Pulse Resp B/P Pulse Ox O2 Delivery O2 Flow Rate FiO2 02/21/17 14:45 3.0 02/21/17 12:45 65 02/21/17 12:30 97.9 18 129/69 93 02/21/17 08:00 Nasal Cannula 02/19/17 18:32 32 Intake and Output 02/20/17 02/20/17 02/21/17 15:00 23:00 07:00 Intake Total 650 ml 500 ml Output Total 60 ml Balance -60 ml 650 ml 500 ml Exam Constitutional: alert, obese, oriented Psych: nl mood/affect Head: normocephalic Neck: non-tender Respiratory: diminished breath sounds Cardiovascular: other (Regular rate) Gastrointestinal: non-tender, soft Musculoskeletal: nl extremities to inspection Neurological: LOCATION DIRECTOR II-XII intact, nl speech Skin: nl turgor Results Result Diagram: 02/21/17 0600 02/21/17 0600 Results 24 hrs Laboratory Tests Test 02/20/17 17:28 02/20/17 21:01 02/21/17 02:27 02/21/17 06:00 Bedside Glucose 119 124 112 White Blood Count 12.0 H Red Blood Count 5.51 H Hemoglobin 12.6 Hematocrit 43.2 Mean Corpuscular Volume 78.4 L Mean Corpuscular Hemoglobin 22.9 L Mean Corpuscular Hemoglobin Concent 29.2 L Red Cell Distribution Width 18.8 H Platelet Count 254 Mean Platelet Volume 9.6 Neutrophils % 65.2 Lymphocytes % 23.0 Monocytes % 9.5 Eosinophils % 0.9 Basophils % 0.2 Nucleated Red Blood Cells % 0.0 Neutrophils # (Manual) 7.9 H Lymphocytes # 2.8 Monocytes # 1.1 H Eosinophils # 0.1 Basophils # 0.0 Nucleated Red Blood Cells # 0.0 Sodium Level 139 Potassium Level 3.3 L Chloride Level 95 L Carbon Dioxide Level 37 H Anion Gap 10 Blood Urea Nitrogen 41 H Creatinine 1.01 H Glucose Level 113 Calcium Level 9.4 Phosphorus Level 3.5 Magnesium Level 1.9 Total Bilirubin 0.5 Direct Bilirubin 0.00 Indirect Bilirubin 0.5 Aspartate Amino Transf (AST/SGOT) 30 Alanine Aminotransferase (ALT/SGPT) 47 Alkaline Phosphatase 94 Total Protein 8.1 Albumin 3.8 Globulin 4.30 H Albumin/Globulin Ratio 0.88 Test 02/21/17 08:14 02/21/17 12:05 Bedside Glucose 109 92 Medications Medications Current Medications Lorazepam (Ativan) 0.5 mg Q8H PRN PO ANXIETY; Start 01/30/17 at 05:00 Acetaminophen (Tylenol Tab) 650 mg Q6H PRN PO PAIN LEVEL 1-3 OR FEVER Last administered on 01/30/17 12:04; Admin Dose 650 MG; Start 01/30/17 at 05:00 Diagnostic Test (Pha) (Accu-Chek) 1 ea 02 XX Last administered on 02/21/17 02: 00; Admin Dose 1 EA; Start 01/31/17 at 02:00 Alprazolam (Xanax) 1 mg QHS PRN PO ANXIETY; Start 01/30/17 at 05:00 Docusate Sodium (Colace) 100 mg BID PO Last administered on 02/20/17 08:34; Admin Dose 100 MG; Start 01/30/17 at 09:00 Gabapentin (Neurontin) 100 mg BID PO Last administered on 02/21/17 08:18; Admin Dose 100 MG; Start 01/30/17 at 09:00 Acetaminophen/ Hydrocodone Bitart ([place] (10)) 1 tab Q6H PRN PO PAIN Last administered on 02/04/17 02:49; Admin Dose 1 TAB; Start 01/30/17 at 05:00 Miscellaneous Information 1 ea NOTE XX ; Start 01/30/17 at 05:00 Glucose (Glutose) 15 gm Q15M PRN PO DECREASED GLUCOSE; Start 01/30/17 at 05:00 Glucose (Glutose) 22.5 gm Q15M PRN PO DECREASED GLUCOSE; Start 01/30/17 at 05: 00 Dextrose (D50w Syringe) 25 ml Q15M PRN IV DECREASED GLUCOSE; Start 01/30/17 at 05:00 Dextrose (D50w Syringe) 50 ml Q15M PRN IV DECREASED GLUCOSE; Start 01/30/17 at 05:00 Glucagon (Glucagen) 1 mg Q15M PRN IM DECREASED GLUCOSE; Start 01/30/17 at 05:00 Glucose (Glutose) 15 gm Q15M PRN BUCCAL DECREASED GLUCOSE; Start 01/30/17 at 05 :00 Nitroglycerin (Nitroglycerin (Sl Tab) 0.4 Mg) 1 tab [id number] PRN SL CHEST PAIN ; Start 01/30/17 at 05:30 Colchicine (Colchicine) 0.6 mg DAILY PO Last administered on 02/21/17 08:18; Admin Dose 0.6 MG; Start 02/03/17 at 09:00 Miscellaneous Information (Pending [facility] Order For Wound Care) This patient deleon... PRN PRN XX WOUND CARE; Start 02/02/17 at 17:30 Nystatin (Nystatin Powder) 1 applic BID TOP Last administered on 02/21/17 08: 19; Admin Dose 1 APPLIC; Start 02/02/17 at 21:00 Hydromorphone HCl (Dilaudid) 1 mg Q6H PRN IV PAIN Last administered on 08:24; Admin Dose 1 MG; Start 02/04/17 at 14:30 Senna (Senokot) 2 tab BID PO Last administered on 02/19/17 08:56; Admin Dose 2 TAB; Start 02/05/17 at 13:00 Loratadine (Claritin) 10 mg DAILY PO Last administered on 02/21/17 08:18; Admin Dose 10 MG; Start 02/09/17 at 14:00 Acetaminophen/ Hydrocodone Bitart ([place] (5/325)) 1 tab Q6H PRN PO PAIN LEVEL 6 -10; Start 02/11/17 at 12:30 Ondansetron HCl (Zofran Inj) 4 mg Q6H PRN IV NAUSEA AND/OR VOMITING Last administered on 02/17/17 21:14; Admin Dose 4 MG; Start 02/11/17 at 12:30 Hydromorphone HCl (Dilaudid) 1 mg Q4H PRN IV PAIN Last administered on 14:01; Admin Dose 1 MG; Start 02/11/17 at 20:30 Ferrous Sulfate (Feosol Liquid Cup) 300 mg TID PO Last administered on 13:52; Admin Dose 300 MG; Start 02/17/17 at 21:00 Heparin Sodium (Porcine) (Heparin (5000 Units/0.5 ml)) 5,000 unit Q8 SC Last administered on 02/21/17 14:00; Admin Dose 5,000 UNIT; Start 02/19/17 at 14:00 YAQUELIN RITTER Feb 21, 2017 15:47
[2017-02-22] VITALS (11 sets, daily range): BP systolic 102–123; BP diastolic 59–71; PULSE 64–96; RESP 16–20
[2017-02-22] MEDS: ACCU-CHEK XX SCH (02:00)
[2017-02-22] MEDS: HEPARIN 5,000 UNIT/0.5 ML VIAL SC SCH ×3 (07:00→21:49)
[2017-02-22] MEDS: SENNA TAB PO SCH ×2 (07:38→21:00)
[2017-02-22] MEDS: DOCUSATE SODIUM 100 MG CAP PO SCH ×2 (07:39→21:00)
[2017-02-22] MEDS: INSULIN ASPART [NOVOLOG] 3 ML PEN SC SCH ×4 (07:55→21:00)
[2017-02-22] MEDS: CALCIUM CARBONATE 500 MG CHEW TAB PO SCH ×3 (08:01→17:15)
[2017-02-22] MEDS: NYSTATIN 30 GM POWDER BTL TOP SCH ×2 (08:01→21:44)
[2017-02-22] MEDS: COLCHICINE 0.6 MG TAB PO SCH (08:01)
[2017-02-22] MEDS: GABAPENTIN 100 MG CAP PO SCH ×2 (08:01→21:42)
[2017-02-22] MEDS: FERROUS SULFATE 60 MG/ML 5ML CUP PO SCH ×3 (08:01→21:42)
[2017-02-22] MEDS: LORATADINE 10 MG TAB PO SCH (08:01)
[2017-02-22] MEDS: HYDROmorphONE 1 MG/ML SYG IV PRN ×3 (09:49→21:54)
[2017-02-22] MEDS ORDERED: SENN-53 PO (11:38)
[2017-02-22] MEDS ORDERED: COLC0.6T6 PO (11:38)
[2017-02-22] MEDS ORDERED: ALBU8.5H3 INH (11:38)
[2017-02-22] MEDS ORDERED: HYDR-3498 PO (11:38)
--- NOTE | 2017-02-22 12:00 | CONS ---
Date/Time of Note Date/Time of Note DATE: 02/22/17 TIME: 11:58 Assessment/Plan Assessment/Plan Additional Assessment/Plan Assessment and recommendations; 1. Patient admitted with shortness of breath discovered to have very large pericardial effusion status post pericardial drain placement with subsequent removal. 2. Underlying morbid obesity with obesity/hypoventilation syndrome. Continue current treatment. Consider discharge. Consultation Date/Type/Reason Admit Date/Time Jan 30, 2017 at 02:47 Initial Consult Date 02/01/17 Type of Consultation: Pulmonary 24 HR Interval Summary Free Text/Dictation Patient condition stable. Remains awake alert. Currently sitting in a chair by bedside. Complains of dyspnea on exertion. General exam; young woman, awake and alert. Currently in no distress. Exam/Review of Systems Vital Signs Vitals Vital Signs Date Time Temp Pulse Resp B/P Pulse Ox O2 Delivery O2 Flow Rate FiO2 02/22/17 08:07 64 02/22/17 08:00 Nasal Cannula 2.0 02/22/17 07:07 97.8 16 109/64 97 02/19/17 18:32 32 Intake and Output 02/21/17 02/21/17 02/22/17 15:00 23:00 07:00 Intake Total 1240 ml 200 ml Balance 1240 ml 200 ml Exam HEENT exam; supple neck, pharynx is clear. Patient has good dentition. Pupils are midsize and reactive to light. JVD difficult to see because of short neck. Chest exam; diminished but clear breath sounds. S1-S2 audible, no murmurs. Regular rhythm. Abdomen exam; protuberant. Nontender. Bowel sounds audible. Extremity exam; no peripheral edema. OWNER exam; no focal deficit. Results Result Diagram: 02/21/17 0600 02/21/17 0600 Results 24 hrs Laboratory Tests Test 02/21/17 12:05 02/21/17 17:08 02/21/17 21:34 02/22/17 07:53 Bedside Glucose 92 119 134 94 Medications Medications Current Medications Lorazepam (Ativan) 0.5 mg Q8H PRN PO ANXIETY; Start 01/30/17 at 05:00 Acetaminophen (Tylenol Tab) 650 mg Q6H PRN PO PAIN LEVEL 1-3 OR FEVER Last administered on 01/30/17t 12:04; Admin Dose 650 MG; Start 01/30/17 at 05:00 Diagnostic Test (Pha) (Accu-Chek) 1 ea 02 XX Last administered on 02/22/17 02: 00; Admin Dose 1 EA; Start 01/31/17 at 02:00 Alprazolam (Xanax) 1 mg QHS PRN PO ANXIETY; Start 01/30/17 at 05:00 Docusate Sodium (Colace) 100 mg BID PO Last administered on 02/21/17 21:00; Admin Dose 100 MG; Start 01/30/17 at 09:00 Gabapentin (Neurontin) 100 mg BID PO Last administered on 02/22/17 08:01; Admin Dose 100 MG; Start 01/30/17 at 09:00 Acetaminophen/ Hydrocodone Bitart ([place] (10)) 1 tab Q6H PRN PO PAIN Last administered on 02/04/17 02:49; Admin Dose 1 TAB; Start 01/30/17 at 05:00 Miscellaneous Information 1 ea NOTE XX ; Start 01/30/17 at 05:00 Glucose (Glutose) 15 gm Q15M PRN PO DECREASED GLUCOSE; Start 01/30/17 at 05:00 Glucose (Glutose) 22.5 gm Q15M PRN PO DECREASED GLUCOSE; Start 01/30/17 at 05: 00 Dextrose (D50w Syringe) 25 ml Q15M PRN IV DECREASED GLUCOSE; Start 01/30/17 at 05:00 Dextrose (D50w Syringe) 50 ml Q15M PRN IV DECREASED GLUCOSE; Start 01/30/17 at 05:00 Glucagon (Glucagen) 1 mg Q15M PRN IM DECREASED GLUCOSE; Start 01/30/17 at 05:00 Glucose (Glutose) 15 gm Q15M PRN BUCCAL DECREASED GLUCOSE; Start 01/30/17 at 05 :00 Nitroglycerin (Nitroglycerin (Sl Tab) 0.4 Mg) 1 tab [id number] PRN SL CHEST PAIN ; Start 01/30/17 at 05:30 Colchicine (Colchicine) 0.6 mg DAILY PO Last administered on 02/22/17 08:01; Admin Dose 0.6 MG; Start 02/03/17 at 09:00 Miscellaneous Information (Pending [facility] Order For Wound Care) This patient deleon... PRN PRN XX WOUND CARE; Start 02/02/17 at 17:30 Nystatin (Nystatin Powder) 1 applic BID TOP Last administered on 02/22/17 08: 01; Admin Dose 1 APPLIC; Start 02/02/17 at 21:00 Hydromorphone HCl (Dilaudid) 1 mg Q6H PRN IV PAIN Last administered on 09:49; Admin Dose 1 MG; Start 02/04/17 at 14:30 Senna (Senokot) 2 tab BID PO Last administered on 02/21/17 21:00; Admin Dose 2 TAB; Start 02/05/17 at 13:00 Loratadine (Claritin) 10 mg DAILY PO Last administered on 02/22/17 08:01; Admin Dose 10 MG; Start 02/09/17 at 14:00 Acetaminophen/ Hydrocodone Bitart ([place] (5/325)) 1 tab Q6H PRN PO PAIN LEVEL 6 -10; Start 02/11/17 at 12:30 Ondansetron HCl (Zofran Inj) 4 mg Q6H PRN IV NAUSEA AND/OR VOMITING Last administered on 02/17/17 21:14; Admin Dose 4 MG; Start 02/11/17 at 12:30 Hydromorphone HCl (Dilaudid) 1 mg Q4H PRN IV PAIN Last administered on 14:01; Admin Dose 1 MG; Start 02/11/17 at 20:30 Ferrous Sulfate (Feosol Liquid Cup) 300 mg TID PO Last administered on 08:01; Admin Dose 300 MG; Start 02/17/17 at 21:00 Heparin Sodium (Porcine) (Heparin (5000 Units/0.5 ml)) 5,000 unit Q8 SC Last administered on 02/22/17 07:00; Admin Dose 5,000 UNIT; Start 02/19/17 at 14:00 AWA MASSEY Feb 22, 2017 12:00
[2017-02-22] MEDS ORDERED: POTASSIUM CHLORIDE (SR) 20 MEQ TAB PO STA (14:52)
--- NOTE | 2017-02-22 14:52 | CONS ---
Date/Time of Note Date/Time of Note DATE: 02/22/17 TIME: 14:51 Assessment/Plan Assessment/Plan Additional Assessment/Plan Pericardial effusion s/p pericardial window 02/11/17 Preserved ejection fraction Respiratory failure, extubated Supermorbid obesity Obstructive sleep apnea -no malignant cells in the pericardial fluid. Would continue diuretics as per our nephrology colleagues. No AV alan blocking agents secondary to bradycardia. DC planning Consultation Date/Type/Reason Admit Date/Time Jan 30, 2017 at 02:47 Initial Consult Date 02/01/17 Type of Consultation: cv 24 HR Interval Summary Free Text/Dictation Overall feeling better and tolerating more activity Exam/Review of Systems Vital Signs Vitals Vital Signs Date Time Temp Pulse Resp B/P Pulse Ox O2 Delivery O2 Flow Rate FiO2 02/22/17 12:25 96 02/22/17 12:19 98.4 16 102/59 96 02/22/17 08:00 Nasal Cannula 2.0 02/19/17 18:32 32 Intake and Output 02/21/17 02/21/17 02/22/17 15:00 23:00 07:00 Intake Total 1240 ml 200 ml Balance 1240 ml 200 ml Exam No apparent distress Constitutional: alert, obese, oriented Head: normocephalic Respiratory: other (Coarse breath sounds bilaterally, no wheezing) Cardiovascular: other (S1-S2.), regular rate and rhythm Gastrointestinal: bowel sounds, non-tender, soft Extremities: edema Results Result Diagram: 02/21/17 0600 02/21/17 0600 Results 24 hrs Laboratory Tests Test 02/21/17 17:08 02/21/17 21:34 02/22/17 07:53 02/22/17 12:14 Bedside Glucose 119 134 94 152 Medications Medications Current Medications Lorazepam (Ativan) 0.5 mg Q8H PRN PO ANXIETY; Start 01/30/17 at 05:00 Acetaminophen (Tylenol Tab) 650 mg Q6H PRN PO PAIN LEVEL 1-3 OR FEVER Last administered on 01/30/17 12:04; Admin Dose 650 MG; Start 01/30/17 at 05:00 Diagnostic Test (Pha) (Accu-Chek) 1 ea 02 XX Last administered on 02/22/17 02: 00; Admin Dose 1 EA; Start 01/31/17 at 02:00 Alprazolam (Xanax) 1 mg QHS PRN PO ANXIETY; Start 01/30/17 at 05:00 Docusate Sodium (Colace) 100 mg BID PO Last administered on 02/21/17 21:00; Admin Dose 100 MG; Start 01/30/17 at 09:00 Gabapentin (Neurontin) 100 mg BID PO Last administered on 02/22/17 08:01; Admin Dose 100 MG; Start 01/30/17 at 09:00 Acetaminophen/ Hydrocodone Bitart ([place] (10/325)) 1 tab Q6H PRN PO PAIN Last administered on 02/04/17 02:49; Admin Dose 1 TAB; Start 01/30/17 at 05:00 Miscellaneous Information 1 ea NOTE XX ; Start 01/30/17 at 05:00 Glucose (Glutose) 15 gm Q15M PRN PO DECREASED GLUCOSE; Start 01/30/17 at 05:00 Glucose (Glutose) 22.5 gm Q15M PRN PO DECREASED GLUCOSE; Start 01/30/17 at 05: 00 Dextrose (D50w Syringe) 25 ml Q15M PRN IV DECREASED GLUCOSE; Start 01/30/17 at 05:00 Dextrose (D50w Syringe) 50 ml Q15M PRN IV DECREASED GLUCOSE; Start 01/30/17 at 05:00 Glucagon (Glucagen) 1 mg Q15M PRN IM DECREASED GLUCOSE; Start 01/30/17 at 05:00 Glucose (Glutose) 15 gm Q15M PRN BUCCAL DECREASED GLUCOSE; Start 01/30/17 at 05 :00 Nitroglycerin (Nitroglycerin (Sl Tab) 0.4 Mg) 1 tab [id number] PRN SL CHEST PAIN ; Start 01/30/17 at 05:30 Colchicine (Colchicine) 0.6 mg DAILY PO Last administered on 02/22/17 08:01; Admin Dose 0.6 MG; Start 02/03/17 at 09:00 Miscellaneous Information (Pending [facility] Order For Wound Care) This patient deleon... PRN PRN XX WOUND CARE; Start 02/02/17 at 17:30 Nystatin (Nystatin Powder) 1 applic BID TOP Last administered on 02/22/17 08: 01; Admin Dose 1 APPLIC; Start 02/02/17 at 21:00 Hydromorphone HCl (Dilaudid) 1 mg Q6H PRN IV PAIN Last administered on 14:10; Admin Dose 1 MG; Start 02/04/17 at 14:30 Senna (Senokot) 2 tab BID PO Last administered on 02/21/17 21:00; Admin Dose 2 TAB; Start 02/05/17 at 13:00 Loratadine (Claritin) 10 mg DAILY PO Last administered on 02/22/17 08:01; Admin Dose 10 MG; Start 02/09/17 at 14:00 Acetaminophen/ Hydrocodone Bitart ([place] (5/325)) 1 tab Q6H PRN PO PAIN LEVEL 6 -10; Start 02/11/17 at 12:30 Ondansetron HCl (Zofran Inj) 4 mg Q6H PRN IV NAUSEA AND/OR VOMITING Last administered on 02/17/17 21:14; Admin Dose 4 MG; Start 02/11/17 at 12:30 Hydromorphone HCl (Dilaudid) 1 mg Q4H PRN IV PAIN Last administered on 14:01; Admin Dose 1 MG; Start 02/11/17 at 20:30 Ferrous Sulfate (Feosol Liquid Cup) 300 mg TID PO Last administered on 12:16; Admin Dose 300 MG; Start 02/17/17 at 21:00 Heparin Sodium (Porcine) (Heparin (5000 Units/0.5 ml)) 5,000 unit Q8 SC Last administered on 02/22/17 14:14; Admin Dose 5,000 UNIT; Start 02/19/17 at 14:00 Sean Gallego DO Feb 22, 2017 14:52
[2017-02-22] MEDS ORDERED: MAGNESIUM SULFATE 2 GM/50 ML 50 ML IVPB ONE (15:00)
--- NOTE | 2017-02-22 15:21 | PDOCDIS ---
Discharge Instructions DIAGNOSIS Discharge Diagnosis 1. Moderate to large pericardial effusion. 2. Acute respiratory failure likely secondary to #1. 3. Essential hypertension. 4. Depression. 5. Type 2 diabetes. 6. Acute kidney injury. 7. Morbid obesity. CONDITION Patient Condition: Stable HOME CARE INSTRUCTIONS: Diet Instructions: Low Fat /CholesterolSpecial Diet: 1800 caorie FOLLOW UP/APPOINTMENTS Follow-up Plan 1. Follow up with Dr. Gavin Nicole in one week 2. Follow up with Dr. Sean Gallego in one week 3. Follow up with your primary care provider in 1-2 weeks YAQUELIN RITTER Feb 22, 2017 15:21
[2017-02-23] VITALS (11 sets, daily range): BP systolic 106–132; BP diastolic 57–67; PULSE 67–83; RESP 16–19
[2017-02-23] MEDS: ACCU-CHEK XX SCH (02:00)
[2017-02-23] MEDS: HEPARIN 5,000 UNIT/0.5 ML VIAL SC SCH ×2 (06:20→14:09)
[2017-02-23] MEDS: INSULIN ASPART [NOVOLOG] 3 ML PEN SC SCH ×3 (07:36→17:10)
[2017-02-23] MEDS: SENNA TAB PO SCH (09:00)
[2017-02-23] MEDS: DOCUSATE SODIUM 100 MG CAP PO SCH (09:00)
[2017-02-23] MEDS: CALCIUM CARBONATE 500 MG CHEW TAB PO SCH ×3 (09:02→18:11)
[2017-02-23] MEDS: GABAPENTIN 100 MG CAP PO SCH (09:02)
[2017-02-23] MEDS: LORATADINE 10 MG TAB PO SCH (09:03)
[2017-02-23] MEDS: COLCHICINE 0.6 MG TAB PO SCH (09:03)
[2017-02-23] MEDS: FERROUS SULFATE 60 MG/ML 5ML CUP PO SCH ×2 (09:04→13:00)
[2017-02-23] MEDS: NYSTATIN 30 GM POWDER BTL TOP SCH (09:06)
[2017-02-23] MEDS: HYDROmorphONE 1 MG/ML SYG IV PRN (10:56)
--- NOTE | 2017-02-23 12:25 | PN ---
Date/Time of Note Date/Time of Note LATE ENTRY DATE: 02/22/17 Assessment/Plan VTE Prophylaxis VTE Prophylaxis Intervention: heparin Lines/Catheters IV [facility] PICC Line Urinary Cath still in place: No Assessment/Plan Chief Complaint/Hosp Course Assessment and plan 1. Moderate to large pericardial effusion. Patient status post thoracotomy and pericardiocentesis on February 11, 2017. There was also removal of chest tube on February 14, 2017. On colchicine. No nonsteroidal anti-inflammatory medication as per car usher at this time. Suspect etiology of pericardial effusion idiopathic consider negative fluid culture and cytology negative for malignancy. No evidence of autoimmune process such as lupus. 2. Acute respiratory failure likely secondary to #1. Of note patient does have a history of pulmonary embolism however is not a CT scan for angiogram due to her heavy weight and VQ scan was also not able to be done due to her orthopnea. Bilateral lower extremity Doppler was negative for any DVT. Continue with ob/gyn nurse recommendations. Titrate off O2 as tolerated. 3. Essential hypertension. Continue antihypertensives and adjust needed. 4. Depression. Stable at present. Will monitor for now. 5. Type 2 diabetes. On insulin regimen. Adjust needed. 6. Acute kidney injury. Stable at present. Division Commander is following. 7. Morbid obesity. Weight reduction was advised. Disposition plan: Anticipate discharge within the next 24 hours. Will need home health services as well as hospital bed set up for home prior to discharge. Will follow up. Discussed plan of care with Dr. Hernandez Problems: Subjective 24 Hr Interval Summary Free Text/Dictation less reported shortness of breath at this time. Exam/Review of Systems Vital Signs Vitals Vital Signs Date Time Temp Pulse Resp B/P Pulse Ox O2 Delivery O2 Flow Rate FiO2 02/23/17 11:46 97.5 80 16 132/59 94 02/22/17 15:00 3.0 02/22/17 08:00 Nasal Cannula 02/19/17 18:32 32 Intake and Output 02/22/17 02/22/17 02/23/17 15:00 23:00 07:00 Intake Total 1400 ml 500 ml Balance 1400 ml 500 ml Exam Constitutional: alert, obese Psych: nl mood/affect Neck: supple, No jvd Respiratory: diminished breath sounds (More notable at bases) Cardiovascular: other Gastrointestinal: non-tender (Regular rate), soft Neurological: CHIEF OF PEDIATRIC UROLOGY II-XII intact, nl mental status, nl speech Skin: nl turgor Results Result Diagram: 02/21/17 0600 02/21/17 0600 Results 24 hrs Laboratory Tests Test 02/22/17 17:14 02/22/17 21:40 02/23/17 07:36 02/23/17 11:52 Bedside Glucose 117 103 105 98 Medications Medications Current Medications Lorazepam (Ativan) 0.5 mg Q8H PRN PO ANXIETY; Start 01/30/17 at 05:00 Acetaminophen (Tylenol Tab) 650 mg Q6H PRN PO PAIN LEVEL 1-3 OR FEVER Last administered on 01/30/17 12:04; Admin Dose 650 MG; Start 01/30/17 at 05:00 Diagnostic Test (Pha) (Accu-Chek) 1 ea 02 XX Last administered on 02/22/17 02: 00; Admin Dose 1 EA; Start 01/31/17 at 02:00 Alprazolam (Xanax) 1 mg QHS PRN PO ANXIETY; Start 01/30/17 at 05:00 Docusate Sodium (Colace) 100 mg BID PO Last administered on 02/21/17 21:00; Admin Dose 100 MG; Start 01/30/17 at 09:00 Gabapentin (Neurontin) 100 mg BID PO Last administered on 02/23/17 09:02; Admin Dose 100 MG; Start 01/30/17 at 09:00 Acetaminophen/ Hydrocodone Bitart ([place] (10/325)) 1 tab Q6H PRN PO PAIN Last administered on 02/04/17 02:49; Admin Dose 1 TAB; Start 01/30/17 at 05:00 Miscellaneous Information 1 ea NOTE XX ; Start 01/30/17 at 05:00 Glucose (Glutose) 15 gm Q15M PRN PO DECREASED GLUCOSE; Start 01/30/17 at 05:00 Glucose (Glutose) 22.5 gm Q15M PRN PO DECREASED GLUCOSE; Start 01/30/17 at 05: 00 Dextrose (D50w Syringe) 25 ml Q15M PRN IV DECREASED GLUCOSE; Start 01/30/17 at 05:00 Dextrose (D50w Syringe) 50 ml Q15M PRN IV DECREASED GLUCOSE; Start 01/30/17 at 05:00 Glucagon (Glucagen) 1 mg Q15M PRN IM DECREASED GLUCOSE; Start 01/30/17 at 05:00 Glucose (Glutose) 15 gm Q15M PRN BUCCAL DECREASED GLUCOSE; Start 01/30/17 at 05 :00 Nitroglycerin (Nitroglycerin (Sl Tab) 0.4 Mg) 1 tab [id number] PRN SL CHEST PAIN ; Start 01/30/17 at 05:30 Colchicine (Colchicine) 0.6 mg DAILY PO Last administered on 02/23/17 09:03; Admin Dose 0.6 MG; Start 02/03/17 at 09:00 Miscellaneous Information (Pending [facility] Order For Wound Care) This patient deleon... PRN PRN XX WOUND CARE; Start 02/02/17 at 17:30 Nystatin (Nystatin Powder) 1 applic BID TOP Last administered on 02/23/17 09: 06; Admin Dose 1 APPLIC; Start 02/02/17 at 21:00 Hydromorphone HCl (Dilaudid) 1 mg Q6H PRN IV PAIN Last administered on 10:56; Admin Dose 1 MG; Start 02/04/17 at 14:30 Senna (Senokot) 2 tab BID PO Last administered on 02/21/17 21:00; Admin Dose 2 TAB; Start 02/05/17 at 13:00 Loratadine (Claritin) 10 mg DAILY PO Last administered on 02/23/17 09:03; Admin Dose 10 MG; Start 02/09/17 at 14:00 Acetaminophen/ Hydrocodone Bitart ([place] (5/325)) 1 tab Q6H PRN PO PAIN LEVEL 6 -10; Start 02/11/17 at 12:30 Ondansetron HCl (Zofran Inj) 4 mg Q6H PRN IV NAUSEA AND/OR VOMITING Last administered on 02/17/17 21:14; Admin Dose 4 MG; Start 02/11/17 at 12:30 Hydromorphone HCl (Dilaudid) 1 mg Q4H PRN IV PAIN Last administered on 14:01; Admin Dose 1 MG; Start 02/11/17 at 20:30 Ferrous Sulfate (Feosol Liquid Cup) 300 mg TID PO Last administered on 9/13/ 17at 09:04; Admin Dose 300 MG; Start 02/17/17 at 21:00 Heparin Sodium (Porcine) (Heparin (5000 Units/0.5 ml)) 5,000 unit Q8 SC Last administered on 02/23/17t 06:20; Admin Dose 5,000 UNIT; Start 02/19/17 at 14:00 YAQUELIN RITTER Feb 23, 2017 12:25
--- NOTE | 2017-02-23 19:23 | DS ---
Date/Time of Note Date/Time of Note DATE: 02/23/17 TIME: 19:21 Discharge Summary Admission/Discharge Info Admit Date/Time Jan 30, 2017 at 02:47 Discharge Date/Time Feb 23, 2017 at 19:05 Discharge Diagnosis 1. Moderate to large pericardial effusion. 2. Acute respiratory failure likely secondary to #1. 3. Essential hypertension. 4. Depression. 5. Type 2 diabetes. 6. Acute kidney injury. 7. Morbid obesity. Patient Condition: Stable Consults 1. Dr. Gavin Nicole 2. Dr. Jaime Johnson 3. Dr. Sean Gallego 4. Dr. Frost [facility] Course This is a 46-year-old female who morbidly obese with history of pulmonary embolism 9 years ago and depression as well as anxiety and recurrent lower extremity cellulitis he came to [facility] due to reports of shortness of breath and chest pain. Patient reported that her symptoms worsen with exertion and also she had some chest pain with deep inspiration. Patient' s initial chest x-ray showed her to have moderate marked cardiomegaly. Patient did have complicated stay due to her morbidly obese body habitus. She was seen by monogram machine operator as well as by a typewriter assembler. We did attempt to have her for CT scan with contrast of her chest however due to her obesity she was unable to be placed in the machine. Additionally he also attempted to have her for VQ scan to assess for pulmonary embolism but because of her orthopnea she could not tolerate it. Of note her bilateral lower extremity ultrasound was negative for any DVT. We did get an echocardiogram that did reveal a moderate to large pericardial effusion. Due to her morbid obesity we had to get thoracic surgeon to assist with pericardiocentesis which was done under anesthesia. We finally did get excepting thoracic surgeon who is willing to do procedure as well as an anesthesiologist would be able to help assist. Patient did receive thoracotomy as well as pericardiocentesis on February 11, 2017. She was initially placed in the ICU as well and it did take a while to vent liberator as we were conservative of extubating her in the event that she may have some respiratory failure. She was eventually weaned off the ventilator and she did tolerate well. Fluid studies of her pericardial effusion were negative for any bacteria or malignancy or any evidence of autoimmune disease. During the course of stay she did improve. She was otherwise optimized medically. She was placed on bronchodilators and encouraged for incentive spirometry. She is also placed on colchicine per typewriter assembler recommendations. She was also resumed on antihypertensives for her hypertension and insulin for her diabetes. After discussion with typewriter assembler was noted that patient did have diastolic heart dysfunction and she was optimized with her cardiovascular medications. She was noted with some acute renal insufficiency and she was seen by plate cleaner and we did dose her medications renally. She was advised for weight reduction as well for her morbid obesity. She did have a history of depression but no active symptoms of that at this time. The plan of care was discussed with the patient and patient did verbalize understanding. On the day of discharge patient was in stable condition Discussed plan of care with Dr. Hernandez [place] Meds Active Scripts Sennosides* (Senna Lax*) 8.6 Mg Tablet, 2 TAB PO BID Y for CONSTIPATION, #30 TAB Prov:YAQUELIN RITTER 02/22/17 Hydrocodone Bit-Acetaminophen (Hydrocodone Bit-APAP) 5-325MG Tablet, 1 TAB PO Q6H Y for PAIN LEVEL 6-10, #30 TAB Prov:YAQUELIN RITTER 02/22/17 Colchicine* (Colcrys*) 0.6 Mg Tablet, 0.6 MG PO DAILY for 30 Days, TAB Prov:YAQUELIN RITTER 02/22/17 Albuterol Sulfate* (Proair HFA*) 8.5 Gm Hfa.aer.ad, 2 PUFF INH Q4H Y for WHEEZING AND SOB, #1 INHALER Prov:YAQUELIN RITTER 02/22/17 Gabapentin* (Gabapentin*) 100 Mg Capsule, 100 MG PO BID, #90 CAP 2 Refills Patient is to titrate dose, increasing it by 100mg every 48h to a total dose of 300mg TID. Thanks Prov:LEVI NG. 06/27/16 Pregabalin* (Lyrica*) 75 Mg Capsule, 75 MG PO BID for 30 Days, CAP Prov:LEVI NG. 06/27/16 Docusate Sodium* (Colace*) 100 Mg Capsule, 100 MG PO BID for 30 Days, CAP Prov:LEVI NG. 06/27/16 Hydrocodone/Acetaminophen ([place] 10-325 Tablet) 1 Each Tablet, 1 EACH PO DAILY Y for PRN, #14 TAB Prov:LEVI NG 06/27/16 Reported Medications Metformin Hcl* (Metformin Hcl*) 500 Mg Tablet, 500 MG PO WITH BREAKFAST, #30 TAB 06/23/16 Ibuprofen* (Ibuprofen*) 800 Mg Tab, 800 MG PO TID Y for PRN, TAB 06/23/16 Benazepril Hcl* (Benazepril Hcl*) 40 Mg Tablet, 40 MG PO DAILY, #30 TAB 06/23/16 Alprazolam* (Xanax*) 1 Mg Tab, 1 MG PO QHS Y for ANXIETY, TAB 06/23/16 Follow-up Plan CONDITION Patient Condition: Stable HOME CARE INSTRUCTIONS: Diet Instructions: Low Fat /CholesterolSpecial Diet: 1800 caorie FOLLOW UP/APPOINTMENTS Follow-up Plan 1. Follow up with Dr. Gavin Nicole in one week 2. Follow up with Dr. Sean Gallego in one week 3. Follow up with your primary care provider in 1-2 weeks Primary Care Provider Geoff Alba Time spent on discharge: > 30 minutes Pending Labs Laboratory Tests Test 02/22/17 21:40 02/23/17 07:36 02/23/17 11:52 02/23/17 17:10 Bedside Glucose 103mg/dL (70-220) 105mg/dL (70-220) 98mg/dL (70-220) 114mg/dL (70-220) YAQUELIN RITTER Feb 23, 2017 19:23
--- NOTE | 2017-02-23 19:47 | CONS ---
Date/Time of Note Date/Time of Note DATE: 02/23/17 TIME: 19:46 Assessment/Plan Assessment/Plan Additional Assessment/Plan Pericardial effusion s/p pericardial window 02/11/17 Preserved ejection fraction Respiratory failure, extubated Supermorbid obesity Obstructive sleep apnea -no malignant cells in the pericardial fluid. Would continue diuretics as per our nephrology colleagues. No AV alan blocking agents secondary to bradycardia. DC planning Consultation Date/Type/Reason Admit Date/Time Jan 30, 2017 at 02:47 Initial Consult Date 02/01/17 Type of Consultation: cv 24 HR Interval Summary Free Text/Dictation Shortness of breath continues to improve Exam/Review of Systems Vital Signs Vitals Vital Signs Date Time Temp Pulse Resp B/P Pulse Ox O2 Delivery O2 Flow Rate FiO2 02/23/17 16:06 83 02/23/17 15:10 98.2 19 111/67 93 02/23/17 14:56 21 02/22/17 15:00 3.0 02/22/17 08:00 Nasal Cannula Intake and Output 02/22/17 02/22/17 02/23/17 15:00 23:00 07:00 Intake Total 1400 ml 500 ml Balance 1400 ml 500 ml Exam No apparent distress Constitutional: alert, obese, oriented Head: normocephalic Respiratory: other (Coarse breath sounds bilaterally, no wheezing) Cardiovascular: other (S1-S2 heard), regular rate and rhythm Gastrointestinal: bowel sounds, non-tender, soft Extremities: edema Results Result Diagram: 02/21/17 0600 02/21/17 0600 Results 24 hrs Laboratory Tests Test 02/22/17 21:40 02/23/17 07:36 02/23/17 11:52 02/23/17 17:10 Bedside Glucose 103 105 98 114 Sean Gallego DO Feb 23, 2017 19:47
== END 2017-02-23 19:05 | disposition home health service (06) | DRG 270 ==
LOC: FTE 20:42 → TEL 01-30 02:47 → ICU 02-11 11:49 → TEL 02-17 11:51
PROVIDERS: ADMIT Internal Medicine; ATTEND Internal Medicine
PROC: 5A1945Z Respiratory Ventilation, 24-96 Consecutive Hours (ICD-10-PCS; 2017-02-11)
PROC: 03HB33Z Insertion of Infusion Device into Right Radial Artery, Percutaneous Approach (ICD-10-PCS; 2017-02-11)
PROC: 0W9D00Z Drainage of Pericardial Cavity with Drainage Device, Open Approach (ICD-10-PCS; principal; 2017-02-11 13:30)
PROC: 02HV33Z Insertion of Infusion Device into Superior Vena Cava, Percutaneous Approach (ICD-10-PCS; 2017-02-13)
DX: I31.3 Pericardial effusion (noninflammatory) (principal); J96.01 Acute respiratory failure with hypoxia; N17.9 Acute kidney failure, unspecified; I11.0 Hypertensive heart disease with heart failure; I50.30 Unspecified diastolic (congestive) heart failure; E11.9 Type 2 diabetes mellitus without complications; D50.9 Iron deficiency anemia, unspecified; Z68.42 Body mass index [BMI] 45.0-49.9, adult; E87.5 Hyperkalemia; F32.9 Major depressive disorder, single episode, unspecified; E66.01 Morbid (severe) obesity due to excess calories; G47.33 Obstructive sleep apnea (adult) (pediatric); Z86.711 Personal history of pulmonary embolism; Z79.84 Long term (current) use of oral hypoglycemic drugs
CPT/HCPCS: 36569; 36600; 70450; 71010; 74000; 76775; 76937; 80048; 80053; 80061; 80307; 81001; 81003; 82550; 82553; 82565; 82570; 82575; 82728; 82803; 82962; 83036; 83540; 83735; 83880; 84100; 84156; 84439; 84443; 84484; 84520; 84703; 85025; 85378; 85610; 85613; 85651; 85730; 86038; 86140; 86160; 86226; 86235; 86850; 86900; 86901; 86920; 87070; 87075; 87081; 87086; 87102; 87116; 88104; 88305; 89051; 92526; 92610; 93005; 93306; 93308; 93312; 93970; 94002; 94003; 94640; 94660; 94664; 94770; 97110; 97116; 97162; 97530; J0171; J0690; J1170; J1644; J1650; J1815; J1940; J2250; J2370; J2405; J2710; J2916; J2920; J3010; J3030; J3475; J3480; J7030; Q9967

== ENCOUNTER 2017-02-26 15:49 | Inpatient (IN) | payer MEDICARE, MEDICAID ==
[~2017-02-26] VITALS: Ht 157.5 cm; Wt 178.8 kg
[~2017-02-26 15:49] MED LIST changes: +COLC0.6T6 PO; +HYDR-3498 PO; +SENN-53 PO
[2017-02-26 17:21] LABS: ABNORMAL IP MESSAGE 1; BASOPHILS % 0.3 % (0.0-2.0); EOSINOPHILS # 0.2 10^3/ul (0.0-0.5); EOSINOPHILS % 2.3 % (0.0-7.0); HEMATOCRIT 43.7 % (37.0-47.0); HEMOGLOBIN 12.5 g/dl (12.0-16.0); LYMPHOCYTES # 2.3 10^3/ul (0.8-2.9); LYMPHOCYTES % 25.7 % (15.0-51.0); MEAN CORPUSCULAR HEMOGLOBIN 22.6 pg (29.0-33.0); MEAN CORPUSCULAR HGB CONC 28.6 g/dl (32.0-37.0); MEAN CORPUSCULAR VOLUME 79.2 fl (82.0-101.0); MEAN PLATELET VOLUME 9.7 fl (7.4-10.4); MONOCYTE # 0.8 10^3/ul (0.3-0.9); MONOCYTES % 9.1 % (0.0-11.0); NEUTROPHIL # 5.5 10^3/ul (1.6-7.5); NEUTROPHILS % 61.8 % (39.0-77.0); PLATELET COUNT 326 10^3/UL (140-415); RED BLOOD COUNT 5.52 10^6/ul (4.20-5.40); RED CELL DISTRIBUTION WIDTH 21.6 % (11.5-14.5)
[2017-02-26] MEDS ORDERED: AMLO-147 PO (17:23)
[2017-02-26 17:25] LABS: POSITIVE DIFF @See below
[2017-02-26 17:53] LABS: CALCIUM 9.5 mg/dl (8.4-10.2); CREATININE 0.93 mg/dl (0.44-1.00); POTASSIUM 3.7 mmol/L (3.5-5.1)
[2017-02-26 18:05] LABS: TROPONIN-I 0.033 ng/ml (0.00-0.12)
--- NOTE | 2017-02-26 18:54 | RADRPT ---
PROCEDURE: XR Chest. CLINICAL INDICATION: Chest pain. TECHNIQUE: 2 frontal views of the chest. COMPARISON: Chest dated 06/29/2016. FINDINGS: Cardiomegaly. Hypoinflated lungs and patient body habitus accentuate pulmonary vascular markings at lung bases. The lungs are otherwise clear. No signs of pleural fluid or pneumothorax are seen. The o sseous structures and soft tissues are unremarkable. IMPRESSION: No evidence for active cardiopulmonary disease. RPTAT: [facility] Physician Camelia Date Time Electronically viewed and signed by Physician Camelia on 02/26/2017 18:54 RS/
--- NOTE | 2017-02-26 19:07 | RADRPT ---
PROCEDURE: US venous left upper extremity. CLINICAL INDICATION: Left upper extremity swelling and pain. TECHNIQUE: Multiple longitudinal and transverse images of the left upper extremity veins were obtai preston with russo scale and color Doppler imaging. COMPARISON: None available. FINDINGS: Internal jugular vein: Patent with normal flow. Subclavian vein: Patent with normal flow. Axillary vein: Patent with normal flow. Brachial vein: Patent with normal flow. Cephalic vein: Occluded upper arm segment. Forearm segment is patent. Basilic vein: Patent with normal flow. Ulnar vein: Patent with normal flow. Radial vein: Patent with normal flow. IMPRESSION: 1. No evidence of a deep vein thrombosis within the left upper extremity. 2. Superficial thrombophlebitis involving the upper arm cephalic vein. RPTAT: [facility] .Gael Quinonez MD, Date Time Electronically viewed and signed by .Gael Quinonez MD, on 02/26/2017 19:07 .P/
[2017-02-26] MEDS ORDERED: ASPIRIN 81 MG TAB PO ONE (19:30)
[2017-02-26] MEDS ORDERED: ONDANSETRON 4 MG INJ ONE (20:59)
[2017-02-26] MEDS ORDERED: ONDANSETRON 4 MG INJ IV ONE (21:15)
[2017-02-26] MEDS ORDERED: ACETAMINOPHEN 325 MG TAB PO PRN (22:30)
[2017-02-26] MEDS ORDERED: ONDANSETRON 4 MG INJ IV PRN (22:30)
--- NOTE | 2017-02-26 22:30 | ERA ---
ER Documentation Chief Complaint Date/Time DATE: 02/26/17 TIME: 22:19 Chief Complaint LEFT HAND NUMBNESS X 2 DAYS, JUST DISCHARGE 02/23/17 FOR HEART SURGERY HPI This is a 46-year-old female with past medical history of diabetes, morbid obesity, obstructive sleep apnea, recurrent bilateral lower extremity cellulitis , previous reported PEs but not on anticoagulation, heart failure, a recent month-long admission to the hospital for acute hypoxic respiratory failure requiring intubation for a week, found to have a pericardial effusion requiring pericardiocentesis, PICC line in the left upper extremity during admission, discharge 3 days ago who is now presenting with progressive worsening left- sided chest pain with pain, numbness and tingling into the left arm. The patient reports that her left arm pain has been getting worse since discharge. She is also noticed swelling in that arm. The patient has had intermittent diaphoresis. She has been short of breath at home. She denies any abdominal discomfort or pain. She denies any changes to bowel movements urination. She denies any fever or chills. ROS All systems reviewed and are negative except as per history of present illness. Medications Home Meds Reported Medications Amlodipine Besylate* (Amlodipine Besylate*) 10 Mg Tablet, 10 MG PO DAILY, #30 TAB 02/26/17 Metformin Hcl* (Metformin Hcl*) 500 Mg Tablet, 500 MG PO WITH BREAKFAST, #30 TAB 06/23/16 Ibuprofen* (Ibuprofen*) 800 Mg Tab, 800 MG PO TID Y for PRN, TAB 06/23/16 Benazepril Hcl* (Benazepril Hcl*) 40 Mg Tablet, 40 MG PO DAILY, #30 TAB 06/23/16 Discontinued Reported Medications Alprazolam* (Xanax*) 1 Mg Tab, 1 MG PO QHS Y for ANXIETY, TAB 06/23/16 Discontinued Scripts Sennosides* (Senna Lax*) 8.6 Mg Tablet, 2 TAB PO BID Y for CONSTIPATION, #30 TAB Prov:YAQUELIN RITTER 02/22/17 Hydrocodone Bit-Acetaminophen (Hydrocodone Bit-APAP) 5-325MG Tablet, 1 TAB PO Q6H Y for PAIN LEVEL 6-10, #30 TAB Prov:YAQUELIN RITTER 02/22/17 Colchicine* (Colcrys*) 0.6 Mg Tablet, 0.6 MG PO DAILY for 30 Days, TAB Prov:REGIDOR,YAQUELIN 02/22/17 Albuterol Sulfate* (Proair HFA*) 8.5 Gm Hfa.aer.ad, 2 PUFF INH Q4H Y for WHEEZING AND SOB, #1 INHALER Prov:YAQUELIN RITTER 02/22/17 Gabapentin* (Gabapentin*) 100 Mg Capsule, 100 MG PO BID, #90 CAP 2 Refills Patient is to titrate dose, increasing it by 100mg every 48h to a total dose of 300mg TID. Thanks Prov:LEVI NG. 06/27/16 Pregabalin* (Lyrica*) 75 Mg Capsule, 75 MG PO BID for 30 Days, CAP Prov:LEVI NG. 06/27/16 Docusate Sodium* (Colace*) 100 Mg Capsule, 100 MG PO BID for 30 Days, CAP Prov:LEVI NG. 06/27/16 Hydrocodone/Acetaminophen ([place] 10-325 Tablet) 1 Each Tablet, 1 EACH PO DAILY Y for PRN, #14 TAB Prov:LEVI NG. 06/27/16 Allergies Allergies: Coded Allergies: morphine (Verified Allergy, Unknown, 02/26/17) PMhx/Soc History of Surgery: No Anesthesia Reaction: No Hx Neurological Disorder: No Hx Respiratory Disorders: Yes (SOB) Hx Cardiac Disorders: Yes (HTN) Hx Psychiatric Problems: Yes (ANXIETY) Hx Miscellaneous Medical Probl: Yes (morbidly obese,depression,PE,anxiety, fibromyalgia) Hx Alcohol Use: No Hx Substance Use: No Hx Tobacco Use: Yes Smoking Status: Former smoker FmHx Family History: coronary disease, diabetes Physical Exam Vitals Vital Signs Date Time Temp Pulse Resp B/P Pulse Ox O2 Delivery O2 Flow Rate FiO2 02/26/17 21:30 98.3 72 20 130/83 96 Room Air 02/26/17 18:27 98.3 75 20 129/84 98 Room Air 02/26/17 16:45 98.3 73 20 128/73 96 Room Air 02/26/17 15:50 98.3 83 20 134/75 98 Physical Exam Const: NAD, Well developed, Well nourished Head: Atraumatic Eyes: Normal Conjunctiva ENT: Normal External Ears, Nose and Mouth. Neck: Full range of motion. ~ No meningismus. Resp: Clear to auscultation bilaterally Cardio: Regular rate and rhythm, no murmurs, dehisced chest wound with granulation tissue, no erythema or induration or purulence Abd: Soft, non tender, distended/morbid obesity. Normal bowel sounds Skin: No petechiae or rashes, BLE skin vascular changes, no signs of cellulitis at this time Back: No midline or flank tenderness Ext: No cyanosis, RUE edema Neur: Awake and alert, Normal strength, subjective decreased sensation in the left hand not in any particular distribution Psych: Normal Mood and Affect Result Diagram: 02/26/17 1706 02/26/17 1706 Results 24 hrs Laboratory Tests Test 02/26/17 17:06 White Blood Count 9.010^3/ul Red Blood Count 5.5210^6/ul Hemoglobin 12.5g/dl Hematocrit 43.7% Mean Corpuscular Volume 79.2fl Mean Corpuscular Hemoglobin 22.6pg Mean Corpuscular Hemoglobin Concent 28.6g/dl Red Cell Distribution Width 21.6% Platelet Count 25796^3/UL Mean Platelet Volume 9.7fl Neutrophils % 61.8% Lymphocytes % 25.7% Monocytes % 9.1% Eosinophils % 2.3% Basophils % 0.3% Nucleated Red Blood Cells % 0.0/100WBC Neutrophils # 5.510^3/ul Lymphocytes # 2.310^3/ul Monocytes # 0.810^3/ul Eosinophils # 0.210^3/ul Basophils # 0.010^3/ul Nucleated Red Blood Cells # 0.010^3/ul Sodium Level 142mmol/L Potassium Level 3.7mmol/L Chloride Level 105mmol/L Carbon Dioxide Level 30mmol/L Anion Gap 11 Blood Urea Nitrogen 14mg/dl Creatinine 0.93mg/dl Glucose Level 110mg/dl Calcium Level 9.5mg/dl Troponin I 0.033ng/ml Current Medications Medications (Trade) Dose Ordered Sig/Domonique Route PRN Reason Start Time Stop Time Status Last Admin Dose Admin Aspirin (Aspirin) 324 mg ONCE ONCE PO 02/26/17 19:30 02/26/17 19:31 DC 02/26/17 19:31 Ondansetron HCl (Zofran Inj) 4 mg STK-MED ONCE .ROUTE 02/26/17 20:59 02/26/17 21:00 DC Ondansetron HCl (Zofran Inj) 4 mg ONCE ONCE IV 02/26/17 21:15 02/26/17 21:16 DC 02/26/17 21:10 Procedures/[facility] The patient has a complicated course from her recent admission. She has had multiple cardiac issues requiring procedural intervention. While her symptoms are not consistent with an infection, this may need to be evaluated. A cardiac workup will be completed as well to evaluate for cardiac pathology. The patient had a PICC line in the left arm and is not complaining of swelling, pain , numbness and tingling into the hand. An ultrasound will be completed to evaluate for DVT. Labs The patient's blood work was obtained and reviewed. The patient's CBC shows no leukocytosis. She is afebrile, and I do not suspect a systemic infection. The patient is not anemic at this time. Her platelet count is unremarkable. Coags will be sent off. The patient BMP is likewise unremarkable. Her renal function is normal. That said, her creatinine is elevated at 0.033. Her last troponin was on January 30 and was negative at that time. EKG Read by me: Rate/Rhythm: Regular rate and rhythm at a rate of 73 Intervals: Normal [place]: Normal Diffuse T-wave flattening with poor R-wave progression, no ST elevation or depression Impression: No evidence of acute ischemia or arrhythmia CXR IMPRESSION: No evidence for active cardiopulmonary disease. Electronically viewed and signed by Physician Camelia on 02/26/2017 18:54 Doppler Study IMPRESSION: No evidence of a deep vein thrombosis within the left upper extremity. Superficial thrombophlebitis involving the upper arm cephalic vein. Electronically viewed and signed by .Gael Quinonez MD, on 02/26/2017 19:07 Treatment/Disposition Given the patient's constitution of symptoms with her significant recent history , I am concerned that the patient and I feel that she would benefit from readmission to the hospital. The patient does have a thrombosis to the cephalic vein proximally as well. I suspect that the patient would benefit from anticoagulation. However, this will likely require evaluation by the in room dining server. The patient was otherwise stable while in the emergency department. Departure Diagnosis: Primary Impression: Chest pain Qualified Code: R07.9 - Chest pain, unspecified type Additional Impressions: Cephalic vein thrombosis, left Elevated troponin Condition: ELMER Wagner MD Feb 26, 2017 22:30
[2017-02-26] MEDS ORDERED: KETOROLAC 30 MG INJ IV ONE (23:33)
[2017-02-26 23:37] LABS: INR 0.96; PARTIAL THROMBOPLASTIN TIME 27.8 Sec (25.0-35.0); PROTIME 12.8 Sec (12.2-14.2)
[2017-02-27] VITALS (9 sets, daily range): BP systolic 101–122; BP diastolic 58–69; PULSE 59–91; RESP 18–20; TEMP 98.3; Ht 157.5 cm; Wt 178.8 kg
[2017-02-27] MEDS ORDERED: ACETAMINOPHEN 325 MG TAB PO PRN (04:30)
[2017-02-27] MEDS ORDERED: LORAZEPAM 0.5 MG TAB PO PRN (04:30)
[2017-02-27] MEDS ORDERED: NACL 0.9% 3 ML SYG IV SCH (04:30)
[2017-02-27] MEDS ORDERED: IBUPROFEN 800 MG TAB PO PRN (04:30)
[2017-02-27] MEDS ORDERED: ONDANSETRON 4 MG INJ IV PRN (04:30)
[2017-02-27] MEDS ORDERED: ALBUTEROL/IPRATROPIUM (NEB) 3 ML AMP HHN PRN (04:30)
[2017-02-27] MEDS ORDERED: morphine 2 MG INJ IV PRN (04:30)
[2017-02-27] MEDS ORDERED: GLUCAGON 1 MG INJ IM PRN (05:00)
[2017-02-27] MEDS ORDERED: DEXTROSE 50% 50 ML SYRINGE IV PRN ×2 (05:00)
[2017-02-27] MEDS ORDERED: GLUCOSE GEL 15 GRAM TUBE PO PRN ×2 (05:00)
[2017-02-27] MEDS ORDERED: GLUCOSE GEL 15 GRAM TUBE BUCCAL PRN (05:00)
[2017-02-27 06:42] LABS: BASOPHILS % 0.3 % (0.0-2.0); EOSINOPHILS # 0.2 10^3/ul (0.0-0.5); EOSINOPHILS % 2.5 % (0.0-7.0); HEMATOCRIT 39.2 % (37.0-47.0); HEMOGLOBIN 11.6 g/dl (12.0-16.0); LYMPHOCYTES # 1.9 10^3/ul (0.8-2.9); LYMPHOCYTES % 27.2 % (15.0-51.0); MEAN CORPUSCULAR HEMOGLOBIN 23.5 pg (29.0-33.0); MEAN CORPUSCULAR HGB CONC 29.6 g/dl (32.0-37.0); MEAN CORPUSCULAR VOLUME 79.5 fl (82.0-101.0); MEAN PLATELET VOLUME 9.8 fl (7.4-10.4); MONOCYTE # 0.8 10^3/ul (0.3-0.9); MONOCYTES % 11.2 % (0.0-11.0); NEUTROPHIL # 4.1 10^3/ul (1.6-7.5); PLATELET COUNT 275 10^3/UL (140-415); RED BLOOD COUNT 4.93 10^6/ul (4.20-5.40); RED CELL DISTRIBUTION WIDTH 20.6 % (11.5-14.5); WHITE BLOOD COUNT 7.1 10^3/ul (4.8-10.8)
[2017-02-27 07:17] LABS: CK-MB 2.21 ng/ml (0.0-2.4); TROPONIN-I 0.037 ng/ml (0.00-0.12)
[2017-02-27 07:29] LABS: ALBUMIN 3.2 g/dl (3.3-4.9); ALBUMIN/GLOBULIN RATIO 0.96; BILIRUBIN,INDIRECT 0.2 mg/dl (0-1.1); BILIRUBIN,TOTAL 0.2 mg/dl (0.2-1.3); CALCIUM 9.4 mg/dl (8.4-10.2); MAGNESIUM 1.8 mg/dl (1.7-2.5); POTASSIUM 3.5 mmol/L (3.5-5.1); TOTAL PROTEIN 6.5 g/dl (6.1-8.1)
[2017-02-27] MEDS: INSULIN ASPART [NOVOLOG] 3 ML PEN SC SCH ×4 (07:44→21:00)
--- NOTE | 2017-02-27 07:45 | HP ---
Date/Time of Note Date/Time of Note DATE: 02/27/17 TIME: 07:32 Assessment/Plan VTE Prophylaxis VTE Prophylaxis Intervention: LMWH Lines/Catheters IV [facility]ter [facility] (from [facility] [place] [facility] Urinary Cath still in place: No Assessment/Plan Assessment/Plan Assessment morbidly obese female with a BMI of 72, history of diabetes, SHIRLEY, PE diagnosed 9 years ago status post treatment, recurrent bilateral lower extremity cellulitis, pericardial effusion status post pericardiocentesis and vent dependent respiratory failure presented with chest pain and the left upper extremity swelling and pain, secondary to phlebitis Plan Admit to telemetry Patient need to be ruled out for ACS given her risk factor Trend troponin Patient recently had a 2D echo. will repeat echo and place a cardiology consult as needed based on her clinical course As far as the left upper extremity and swelling and pain is concerned, it is most likely secondary to superficial thrombophlebitis. Doppler ultrasound negative for DVT. Will provide pain medication as needed. Warm compresses Insulin for diabetes HPI/ROS Admit Date/Time Admit Date/Time Feb 26, 2017 at 22:30 Hx of Present Illness This is a 46-year-old morbidly obese female with a BMI of 72, history of diabetes, SHIRLEY, PE diagnosed 9 years ago status post treatment, recurrent bilateral lower extremity cellulitis, pericardial effusion status post pericardiocentesis and vent dependent respiratory failure who presented to the emergency department complaining of chest pain, left upper extremity pain, swelling and a tingling sensation. Patient was recently admitted by myself for shortness of breath and actually had a long hospitalization and was just discharged 3 days ago. At that time, there was a concern for PE, given her history, positive d-dimer and her risk factor. Her weight, CT cannot be done and VQ scan also at that time felt to be risky. She was found to have pericardial effusion and underwent pericardiocentesis. She was also intubated for hypoxic respiratory failure and eventually extubated and was discharged in stable condition. During her last hospitalization, she had a PICC line in her left upper extremity. She is now returning back with chest pain and left upper extremity pain/swelling and some tingling sensation. Chest pain is slightly left-sided, described as sharp. Patient not sure if there is radiation to her left arm. When she presented to the ER, vitals were stable. CBC and BMP were within acceptable range. Left upper extremity Doppler ultrasound showed Superficial thrombophlebitis involving the upper arm cephalic vein. First troponin is negative and EKG was no ST-T wave abnormalities. PMH/Family/Social Past Surgical History Past Surgical Hx: cholecystectomy Social History Smoking Status: Former smoker Exam/Review of Systems Vital Signs Vitals Vital Signs Date Time Temp Pulse Resp B/P Pulse Ox O2 Delivery O2 Flow Rate FiO2 02/27/17 06:58 97.8 70 18 116/58 95 02/27/17 02:44 Room Air Intake and Output 02/26/17 02/26/17 02/27/17 15:00 23:00 07:00 Intake Total 120 ml Balance 120 ml Exam Constitutional: other (Morbidly obese. No acute distress) Head: atraumatic, normocephalic Eyes: EOMI, PERRL Respiratory: clear to auscultation, normal air movement Cardiovascular: nl pulses, regular rate and rhythm Gastrointestinal: non-tender, soft Extremities: other (Left upper extremity swelling. Bilateral lower extremity skin change) Labs Result Diagram: 02/27/17 0620 02/26/17 1706 Medications Medications Current Medications Lorazepam (Ativan) 0.5 mg Q8H PRN PO ANXIETY; Start 02/27/17 at 04:30 Ondansetron HCl (Zofran Inj) 4 mg Q6H PRN IV NAUSEA AND/OR VOMITING; Start at 04:30 Acetaminophen (Tylenol Tab) 650 mg Q6H PRN PO PAIN LEVEL 1-3 OR FEVER; Start at 04:30 Oxycodone/ Acetaminophen (Percocet (5/ 325)) 1 tab Q6H PRN PO PAIN LEVEL 4-6; Start 02/27/17 at 04:30 Enoxaparin Sodium (Lovenox) 40 mg DAILY SC ; Start 02/27/17 at 09:00 Diagnostic Test (Pha) (Accu-Chek) 1 ea 02 XX ; Start 02/28/17 at 02:00 Insulin Glargine (Lantus) 12 unit DAILY@08 SC ; Start 02/27/17 at 08:00 Amlodipine Besylate (Norvasc) 10 mg DAILY PO ; Start 02/27/17 at 09:00 Benazepril HCl (Lotensin) 40 mg DAILY PO ; Start 02/27/17 at 09:00 Ibuprofen (Motrin) 800 mg TID PRN PO PRN; Start 02/27/17 at 04:30 Miscellaneous Information 1 ea NOTE XX ; Start 02/27/17 at 05:00 Glucose (Glutose) 15 gm Q15M PRN PO DECREASED GLUCOSE; Start 02/27/17 at 05:00 Glucose (Glutose) 22.5 gm Q15M PRN PO DECREASED GLUCOSE; Start 02/27/17 at 05: 00 Dextrose (D50w Syringe) 25 ml Q15M PRN IV DECREASED GLUCOSE; Start 02/27/17 at 05:00 Dextrose (D50w Syringe) 50 ml Q15M PRN IV DECREASED GLUCOSE; Start 02/27/17 at 05:00 Glucagon (Glucagen) 1 mg Q15M PRN IM DECREASED GLUCOSE; Start 02/27/17 at 05:00 Glucose (Glutose) 15 gm Q15M PRN BUCCAL DECREASED GLUCOSE; Start 02/27/17 at 05 :00 LENCHO SÁNCHEZ MD Feb 27, 2017 07:44
[2017-02-27] MEDS: OXYCODONE/ACETAMINOPHEN (5/325) TAB PO PRN (08:08)
[2017-02-27] MEDS: ENOXAPARIN 40 MG/0.4 ML SYG SC SCH (08:09)
[2017-02-27] MEDS: BENAZEPRIL 40 MG TAB PO SCH (08:09)
[2017-02-27] MEDS: AMLODIPINE 10 MG TAB PO SCH (08:09)
[2017-02-27] MEDS: INSULIN GLARGINE [LANtus] 3 ML PEN SC SCH (09:27)
[2017-02-27 12:55] LABS: CK-MB 2.18 ng/ml (0.0-2.4); TROPONIN-I 0.031 ng/ml (0.00-0.12)
[2017-02-28] VITALS (9 sets, daily range): BP systolic 95–97; BP diastolic 53–58; PULSE 72–85; RESP 17–20
[2017-02-28] MEDS: OXYCODONE/ACETAMINOPHEN (5/325) TAB PO PRN (01:03)
[2017-02-28] MEDS ORDERED: ACCU-CHEK XX SCH (02:00)
[2017-02-28 07:30] LABS: BASOPHILS % 0.3 % (0.0-2.0); EOSINOPHILS # 0.2 10^3/ul (0.0-0.5); HEMATOCRIT 38.2 % (37.0-47.0); HEMOGLOBIN 11.2 g/dl (12.0-16.0); LYMPHOCYTES # 2.1 10^3/ul (0.8-2.9); LYMPHOCYTES % 28.6 % (15.0-51.0); MEAN CORPUSCULAR HEMOGLOBIN 23.5 pg (29.0-33.0); MEAN CORPUSCULAR HGB CONC 29.3 g/dl (32.0-37.0); MEAN CORPUSCULAR VOLUME 80.1 fl (82.0-101.0); MEAN PLATELET VOLUME 9.9 fl (7.4-10.4); MONOCYTE # 0.8 10^3/ul (0.3-0.9); MONOCYTES % 10.7 % (0.0-11.0); NEUTROPHIL # 4.1 10^3/ul (1.6-7.5); NEUTROPHILS % 56.4 % (39.0-77.0); PLATELET COUNT 269 10^3/UL (140-415); RED BLOOD COUNT 4.77 10^6/ul (4.20-5.40); RED CELL DISTRIBUTION WIDTH 20.9 % (11.5-14.5); WHITE BLOOD COUNT 7.3 10^3/ul (4.8-10.8)
[2017-02-28 07:55] LABS: CALCIUM 8.8 mg/dl (8.4-10.2); CREATININE 0.86 mg/dl (0.44-1.00); MAGNESIUM 1.8 mg/dl (1.7-2.5); PHOSPHORUS 4.6 mg/dl (2.5-4.9); POTASSIUM 3.5 mmol/L (3.5-5.1)
[2017-02-28] MEDS: INSULIN ASPART [NOVOLOG] 3 ML PEN SC SCH ×2 (07:55→11:43)
[2017-02-28 08:00] LABS: IRON 35 ug/dl (35-150)
[2017-02-28 08:10] LABS: TOTAL IRON BINDING CAPACITY 272 ug/dl (241-421)
[2017-02-28] MEDS: BENAZEPRIL 40 MG TAB PO SCH (08:17)
[2017-02-28] MEDS: AMLODIPINE 10 MG TAB PO SCH (08:17)
[2017-02-28] MEDS: ENOXAPARIN 40 MG/0.4 ML SYG SC SCH (08:38)
[2017-02-28] MEDS: INSULIN GLARGINE [LANtus] 3 ML PEN SC SCH (08:39)
--- NOTE | 2017-02-28 11:52 | PDOCDIS ---
Discharge Instructions CONDITION Patient Condition: Good HOME CARE INSTRUCTIONS: Special Diet: diabetic ACTIVITY: Activity Restrictions: No Restrictions FOLLOW UP/APPOINTMENTS Follow-up Plan FOLLOW UP WITH YOUR PRIMARY CARE PHYSICIAN IN 1-2 WEEKS ERIC PEÑA Feb 28, 2017 11:52
--- NOTE | 2017-02-28 14:31 | DS ---
Date/Time of Note Date/Time of Note DATE: 02/28/17 TIME: 14:19 Discharge Summary Admission/Discharge Info Admit Date/Time Feb 26, 2017 at 22:30 Discharge Date/Time February 28, 2017 Discharge Diagnosis 1. Left arm pain and numbness secondary to radial nerve palsy-improving 2. Morbid obesity 3. Diabetes Continue home meds 4. Hypertension Continue home meds as tolerated 5. History of pericardial effusion and respiratory failure during previous admission-now stable Patient Condition: Good Hx of Present Illness Hospital Course Patient is a 46-year-old morbidly obese female with a BMI of 72, history of diabetes, SHIRLEY, PE diagnosed 9 years ago status post treatment, recurrent bilateral lower extremity cellulitis, pericardial effusion status post pericardiocentesis and vent dependent respiratory failure who presented to the emergency department complaining of chest pain, left upper extremity pain, swelling and a tingling sensation as well as chest pain. Troponins and EKG are negative for ischemia and left upper extremity Doppler ultrasound showed superficial thrombophlebitis involving the upper arm cephalic vein. Patient's description of pain in left hand and arm were consistent with radial nerve palsy and the symptoms did improve. Patient was advised to avoid sleeping on the left arm and the patient was felt to be stable for discharge. Of note patient did get a hospital bed during last admission due to her morbid obesity with sleep apnea and inability to lay flat in bed. On the day of discharge patient's vitals, labs and physical exam stable she had no further acute complaints and questions were answered. Home Meds Reported Medications Amlodipine Besylate* (Amlodipine Besylate*) 10 Mg Tablet, 10 MG PO DAILY, #30 TAB 02/26/17 Metformin Hcl* (Metformin Hcl*) 500 Mg Tablet, 500 MG PO WITH BREAKFAST, #30 TAB 06/23/16 Ibuprofen* (Ibuprofen*) 800 Mg Tab, 800 MG PO TID Y for PRN, TAB 06/23/16 Benazepril Hcl* (Benazepril Hcl*) 40 Mg Tablet, 40 MG PO DAILY, #30 TAB 06/23/16 Discontinued Reported Medications Alprazolam* (Xanax*) 1 Mg Tab, 1 MG PO QHS Y for ANXIETY, TAB 06/23/16 Discontinued Scripts Sennosides* (Senna Lax*) 8.6 Mg Tablet, 2 TAB PO BID Y for CONSTIPATION, #30 TAB Prov:YAQUELIN RITTER 02/22/17 Hydrocodone Bit-Acetaminophen (Hydrocodone Bit-APAP) 5-325MG Tablet, 1 TAB PO Q6H Y for PAIN LEVEL 6-10, #30 TAB Prov:YAQUELIN RITTER 02/22/17 Colchicine* (Colcrys*) 0.6 Mg Tablet, 0.6 MG PO DAILY for 30 Days, TAB Prov:REN RITTERNELL 02/22/17 Albuterol Sulfate* (Proair HFA*) 8.5 Gm Hfa.aer.ad, 2 PUFF INH Q4H Y for WHEEZING AND SOB, #1 INHALER Prov:HOMERKISHOREYAQUELIN Prasad 02/22/17 Gabapentin* (Gabapentin*) 100 Mg Capsule, 100 MG PO BID, #90 CAP 2 Refills Patient is to titrate dose, increasing it by 100mg every 48h to a total dose of 300mg TID. Thanks Prov:LEVI NG. 06/27/16 Pregabalin* (Lyrica*) 75 Mg Capsule, 75 MG PO BID for 30 Days, CAP Prov:LEVI NG M. 06/27/16 Docusate Sodium* (Colace*) 100 Mg Capsule, 100 MG PO BID for 30 Days, CAP Prov:LEVI NG. 06/27/16 Hydrocodone/Acetaminophen ([place] 10-325 Tablet) 1 Each Tablet, 1 EACH PO DAILY Y for PRN, #14 TAB Prov:LEVI NG. 06/27/16 Follow-up Plan FOLLOW UP WITH YOUR PRIMARY CARE PHYSICIAN IN 1-2 WEEKS Primary Care Provider Geoff Alba Time spent on discharge: > 30 minutes ERIC PEÑA Feb 28, 2017 14:31
== END 2017-02-28 15:20 | disposition home or self-care (01) | DRG 74 ==
LOC: E/R 15:49 → TEL 22:30
PROVIDERS: ADMIT Internal Medicine; ATTEND Internal Medicine
DX: G56.32 Lesion of radial nerve, left upper limb (principal); E11.8 Type 2 diabetes mellitus with unspecified complications; I80.8 Phlebitis and thrombophlebitis of other sites; Z68.45 Body mass index [BMI] 70 or greater, adult; E66.01 Morbid (severe) obesity due to excess calories; G47.33 Obstructive sleep apnea (adult) (pediatric); Z86.711 Personal history of pulmonary embolism; Z87.891 Personal history of nicotine dependence
CPT/HCPCS: 71010; 80048; 80053; 82550; 82553; 82962; 83540; 83735; 84100; 84484; 85025; 85610; 85730; 93005; 93971; 96374; 96375; J1650; J1815; J1885; J2405

== ENCOUNTER 2017-08-06 22:58 | Emergency (ER) | END 2017-08-07 00:41 | disposition home or self-care (01) ==

== ENCOUNTER 2018-02-26 10:26 | Emergency (ER) | END 2018-02-26 13:24 | disposition home or self-care (01) ==

== ENCOUNTER 2018-03-10 15:33 | Observation (INO) | END 2018-03-11 15:08 | disposition home or self-care (01) ==

== ENCOUNTER 2018-11-17 10:53 | Emergency (ER) | payer MEDICARE, MEDICAID ==
[~2018-11-17] VITALS: Wt 120.0 kg
[~2018-11-17 10:53] MED LIST changes: -ALBU8.5H3 INH; +ALPR0.25 PO; -ALPR1TAB2 PO; +AMLO-147 PO; +ASPI-903 PO; -BENA40TA41 PO; +BENA40TA56 PO; -COLC0.6T6 PO; -DOCU-144 PO; +FER325 PO; -GABA100C14 PO; -HYDR-3498 PO; +HYDR-3980 PO; -HYDR-902 PO; +IBUP-1545 PO; -IBUP800T25 PO; -LYR75 PO; +METF500T24 PO; -METF500T4 PO; -SENN-53 PO
[2018-11-17] MEDS ORDERED: SULF1TAB31 PO (11:43)
[2018-11-17] MEDS ORDERED: CEPH-443 PO (11:43)
--- NOTE | 2018-11-17 11:50 | ERD ---
ER Documentation Chief Complaint Chief Complaint LEFT SIDE FACIAL ABSCESS FOR THE PAST 6 DAYS. NO FEVERS. MILD DRAINAGE. HPI Patient is a 48-year-old female with past medical history of hypertension, anxiety, depression, presents to the ER for concerns of left-sided facial abscess x6 days. Patient states initially she had a pimple-like lesion. She does not recall picking at it. Patient states the lesion has grown in size. Patient denies any fevers or chills. Patient has not been taking any antibiotics. Patient states she has had numerous abscesses in the past. ROS All systems reviewed and are negative except as per history of present illness. Medications Home Meds Active Scripts Sulfamethoxazole/Trimethoprim* (Bactrim Ds* Tablet) 1 Each Tablet, 1 TAB PO BID, #14 TAB Prov:FLO JIANG PA-C 11/17/18 Cephalexin* (Keflex*) 500 Mg Capsule, 500 MG PO TID for 7 Days, CAP Prov:FLO JIANG PA-C 11/17/18 Reported Medications Hydrocodone/Acetaminophen ([place] 10-325 Tablet) 1 Each Tablet, 1 EACH PO DAILY PRN for SEVERE PAIN LEVEL 7-10, TAB 03/10/18 Alprazolam* (Xanax*) 0.25 Mg Tablet, 0.25 MG PO DAILY PRN for ANXIETY, TAB 03/10/18 Aspirin* (Aspirin* Chew) 81 Mg Tab.chew, 81 MG PO DAILY, TAB.CHEW 03/10/18 Ferrous Sulfate* (Ferrous Sulfate*) 325 Mg [place], 325 MG PO DAILY, TAB 03/10/18 Amlodipine Besylate* (Amlodipine Besylate*) 10 Mg Tablet, 10 MG PO DAILY, #30 TAB 02/26/17 Metformin Hcl* (Metformin Hcl*) 500 Mg Tablet, 500 MG PO WITH BREAKFAST, #30 TAB 06/23/16 Ibuprofen* (Ibuprofen*) 800 Mg Tab, 800 MG PO TID PRN for PRN, TAB 06/23/16 Benazepril Hcl* (Benazepril Hcl*) 40 Mg Tablet, 40 MG PO DAILY, #30 TAB 06/23/16 Allergies Allergies: Coded Allergies: morphine (Verified Allergy, Unknown, 03/10/18) PMhx/Soc History of Surgery: Yes (CHOLECYSTECTOMY CSECTION, L ANTERIOR THORACOTOMY) Anesthesia Reaction: No Hx Neurological Disorder: No Hx Respiratory Disorders: No Hx Cardiac Disorders: Yes (PERICARDIAL EFFUSION, HTN) Hx Psychiatric Problems: Yes (ANXIETY, DEPRESSION) Hx Miscellaneous Medical Probl: Yes (FIBROMYALGIA) Hx Alcohol Use: Yes Hx Substance Use: Yes Hx Tobacco Use: Yes Smoking Status: Current every day smoker FmHx Family History: No diabetes Physical Exam Vitals Vital Signs Date Temp Pulse Resp B/P (MAP) Pulse Ox O2 O2 Flow FiO2 Time Delivery Rate 11/17/18 98.3 90 18 130/64 99 10:57 (86) Physical Exam GENERAL: Well-developed, well-nourished female. Appears in no acute distress. HEAD: Normocephalic, atraumatic. EYES: Pupils are equally reactive bilaterally. EOMs grossly intact. No conjunctival erythema. ENT: Moist mucous membranes. No uvula deviation. No kissing tonsils. NECK: Supple. No meningismus. Normal range of motion of the neck. LUNG: Clear to auscultation bilaterally. No rhonchi, wheezing, rales or coarse breath sounds. HEART: Regular rate and rhythm. No murmurs, rubs or gallops. EXTREMITIES: Equal pulses bilaterally. No peripheral clubbing, cyanosis or edema. No unilateral leg swelling. NEUROLOGIC: Alert and oriented. Moving all four extremities without any difficulty. Normal speech. Steady gait. SKIN: 3 cm round erythematous indurated area noted on the patient's left face. No fluctuance. No streaking. Warmth noted. Small scabbed punctate noted in the center of the affected area. Results 24 hrs Current Medications Medications Dose Sig/Domonique Start Time Status Last (Trade) Ordered Route PRN Stop Time Admin Dose Reason Admin Lidocaine 20 ml ONCE ONCE 11/17/18 (Xylocaine SC 12:00 11/17/18 1% (Mdv) 20 12:01 ml) Ceftriaxone 1 gm ONCE ONCE 11/17/18 Sodium IM 12:00 11/17/18 (Rocephin) 12:01 Procedures/MDM MEDICAL DECISION MAKING: Patient is a 48-year-old female presents ER for concerns of left-sided facial abscess x6 days.. Vital signs were reviewed. Patient is afebrile. Patient was not hypoxic. Patient was hemodynamically stable. On exam, affected area was indurated. No fluctuance was noted. Patient was advised to perform warm compresses and return in 2 days for wound recheck. Patient was given Rocephin IM prior to discharge. Patient will be discharged home with prescription for Keflex and Bactrim. Low suspicion for deep space infection or sepsis. Patient was nontoxic, non-opening prior to discharge. PRESCRIPTION: Keflex, Bactrim DISCHARGE: At this time, patient is stable for discharge and outpatient management. I have instructed the patient to follow-up with his/her primary care physician in 1-2 days. I have discussed with the patient the possibility of needing to see a specialist for further workup and imaging studies if symptoms persist. I have instructed the patient to promptly return to the ER for any new or worsening symptoms including increased pain, fever, nausea, vomiting, weakness or LOC. The patient and/or family expressed understanding of and agreement with this plan. All questions were answered. Home care instructions were provided. Disclaimer: Inadvertent spelling and grammatical errors are likely due to EHR/dictation software use and do not reflect on the overall quality of patient care. Also, please note that the electronic time recorded on this note does not necessarily reflect the actual time of the patient encounter. Departure Diagnosis: Primary Impression: Facial abscess Condition: Fair Patient Instructions: Abscess, Antiobiotic Treatment Only Referrals: [facility] YOU HAVE RECEIVED A MEDICAL SCREENING EXAM AND THE RESULTS INDICATE THAT YOU DO NOT HAVE A CONDITION THAT REQUIRES URGENT TREATMENT IN THE EMERGENCY DEPARTMENT. FURTHER EVALUATION AND TREATMENT OF YOUR CONDITION CAN WAIT UNTIL YOU ARE SEEN IN YOUR DOCTORS OFFICE WITHIN THE NEXT 1-2 DAYS. IT IS YOUR RESPONSIBILITY TO MAKE AN APPOINTMENT FOR FOLOW-UP CARE. IF YOU HAVE A PRIMARY DOCTOR --you should call your primary doctor and schedule an appointment IF YOU DO NOT HAVE A PRIMARY DOCTOR YOU CAN CALL OUR PHYSICIAN REFERRAL HOTLINE AT IF YOU CAN NOT AFFORD TO SEE A PHYSICIAN YOU CAN CHOSE FROM THE FOLLOWING [facility] CLINICS [facility] [address] [facility] [address] [facility] [address] [facility] [address] [facility] [address] [facility] [address] [facility]. [facility] YOU HAVE RECEIVED A MEDICAL SCREENING EXAM AND THE RESULTS INDICATE THAT YOU DO NOT HAVE A CONDITION THAT REQUIRES URGENT TREATMENT IN THE EMERGENCY DEPARTMENT. FURTHER EVALUATION AND TREATMENT OF YOUR CONDITION CAN WAIT UNTIL YOU ARE SEEN IN YOUR DOCTORS OFFICE WITHIN THE NEXT 1-2 DAYS. IT IS YOUR RESPONSIBILITY TO MAKE AN APPOINTMENT FOR FOLOW-UP CARE. IF YOU HAVE A PRIMARY DOCTOR --you should call your primary doctor and schedule and appointment IF YOU DO NOT HAVE A PRIMARY DOCTOR YOU CAN CALL OUR PHYSICIAN REFERRAL HOTLINE AT . IF YOU CAN NOT AFFORD TO SEE A PHYSICIAN YOU CAN CHOSE FROM THE FOLLOWING [facility] INSTITUTIONS: [facility] [address] [place] [address] [facility] [address] [place] [address] [facility] [address] [place] [address] Additional Instructions: Apply warm compresses to the affected area. Return in 2 days for wound recheck. Take antibiotics as prescribed. Return to the ER immediately if you have any worsening redness, swelling, pain or fevers. FLO JIANG PA-C Nov 17, 2018 11:50
[2018-11-17] MEDS ORDERED: LIDOCAINE 1% (MDV) 20 ML INJ SC ONE (12:00)
[2018-11-17] MEDS ORDERED: CEFTRIAXONE 1 GM INJ IM ONE (12:00)
== END 2018-11-17 12:52 | disposition home or self-care (01) ==
LOC: FTE 10:53
DX: L02.01 Cutaneous abscess of face (principal); I10 Essential (primary) hypertension; F17.210 Nicotine dependence, cigarettes, uncomplicated; E11.9 Type 2 diabetes mellitus without complications; Z79.82 Long term (current) use of aspirin; Z79.84 Long term (current) use of oral hypoglycemic drugs
CPT/HCPCS: 96372; 99284; J0696

== ENCOUNTER 2019-02-07 17:31 | Inpatient (IN) | payer MEDICARE, MEDICAID ==
[~2019-02-07] VITALS: Ht 157.5 cm; Wt 201.2 kg
[~2019-02-07 17:31] MED LIST changes: +ACET325T33 PO; +CEPH-443 PO; +DOXY100C PO; +HYDR-3601 PO; +SULF1TAB31 PO
[2019-02-07] MEDS ORDERED: KETOROLAC 30 MG INJ IV STA (19:36)
[2019-02-07] MEDS ORDERED: CEFTRIAXONE 1 GM/50 ML (PMX) 50 ML IVPB STA (19:36)
[2019-02-07] MEDS ORDERED: HYDROCODONE/APAP (10/325) TAB PO ONE (20:00)
[2019-02-07] MEDS ORDERED: VANCOMYCIN 1 GM (PMX) 250 ML IVPB STA (20:57)
[2019-02-07] MEDS ORDERED: ONDANSETRON 4 MG INJ IV PRN (21:00)
[2019-02-07] MEDS ORDERED: ACETAMINOPHEN 325 MG TAB PO PRN ×2 (21:00→23:00)
[2019-02-07] MEDS ORDERED: NACL 0.9% 3 ML SYG IV SCH (23:00)
[2019-02-07] MEDS ORDERED: HYDROCODONE/APAP (5/325) TAB PO PRN ×2 (23:00)
[2019-02-07] MEDS ORDERED: ALBUTEROL/IPRATROPIUM (NEB) 3 ML AMP HHN PRN (23:00)
[2019-02-07] MEDS ORDERED: ALPRAZOLAM 0.25 MG TAB PO PRN (23:00)
[2019-02-08 02:21] VITALS: Ht 157.5 cm; Wt 201.2 kg
[2019-02-08] MEDS: SOD CHLORIDE 0.9% 1,000 ML IV SCH ×3 (02:53→19:02)
[2019-02-08 03:00] VITALS: BP 138/68; PULSE 72; RESP 20
[2019-02-08] MEDS ORDERED: traMADol 50 MG TAB PO PRN (03:30)
[2019-02-08] MEDS ORDERED: CLINDAMYCIN 600 MG/D5W (PMX) 50 ML IVPB SCH (06:00)
[2019-02-08] MEDS ORDERED: HYDROmorphONE 1 MG/ML SYG IV ONE (06:30)
[2019-02-08 07:39] VITALS: BP 133/60; PULSE 62; RESP 19
[2019-02-08] MEDS: ACCU-CHEK XX SCH ×4 (08:40→21:01)
[2019-02-08] MEDS: ASPIRIN 81 MG TAB PO SCH (08:41)
[2019-02-08] MEDS: AMLODIPINE 10 MG TAB PO SCH (08:42)
[2019-02-08] MEDS: BENAZEPRIL 40 MG TAB PO SCH (08:42)
[2019-02-08] MEDS: FERROUS SULFATE (EC) 325 MG TAB PO SCH (08:42)
[2019-02-08] MEDS: metFORMIN 500 MG TAB PO SCH (08:43)
[2019-02-08] MEDS: ENOXAPARIN 40 MG/0.4 ML SYG SC SCH (08:46)
[2019-02-08] MEDS: ONDANSETRON 4 MG INJ IV PRN (11:02)
[2019-02-08] MEDS: HYDROmorphONE 0.5 MG/0.5 ML SYG IV PRN ×2 (15:49→22:48)
[2019-02-08 15:54] VITALS: BP 114/59; PULSE 70; RESP 19
[2019-02-08] MEDS ORDERED: VANCOMYCIN IV PER PHARMACY XX SCH (16:00)
[2019-02-08] MEDS ORDERED: DEXTROSE 50% 50 ML SYRINGE IV PRN ×2 (16:30)
[2019-02-08] MEDS ORDERED: GLUCOSE GEL 15 GRAM TUBE PO PRN ×2 (16:30)
[2019-02-08] MEDS ORDERED: VANCOMYCIN HCL 2 GM in SOD CHLORIDE 0.9% 500 ML IVPB SCH (16:30)
[2019-02-08] MEDS ORDERED: GLUCOSE GEL 15 GRAM TUBE BUCCAL PRN (16:30)
[2019-02-08] MEDS ORDERED: GLUCAGON 1 MG INJ IM PRN (16:30)
[2019-02-08] MEDS: INSULIN ASPART [NOVOLOG] 3 ML PEN SC SCH ×2 (17:40→21:00)
[2019-02-08 19:49] VITALS: BP 105/55; PULSE 70; RESP 19
[2019-02-09 02:57] VITALS: BP 104/51; PULSE 79; RESP 20
[2019-02-09] MEDS: VANCOMYCIN 1 GM 250 ML IVPB SCH ×2 (04:18→12:00)
[2019-02-09] MEDS: ACCU-CHEK XX SCH ×4 (07:00→21:00)
[2019-02-09 07:32] VITALS: BP 117/55; PULSE 76; RESP 18
[2019-02-09] MEDS: HYDROmorphONE 0.5 MG/0.5 ML SYG IV PRN ×3 (07:46→22:22)
[2019-02-09] MEDS: metFORMIN 500 MG TAB PO SCH (07:52)
[2019-02-09] MEDS: INSULIN ASPART [NOVOLOG] 3 ML PEN SC SCH ×4 (07:52→21:00)
[2019-02-09] MEDS: ASPIRIN 81 MG TAB PO SCH (09:21)
[2019-02-09] MEDS: BENAZEPRIL 40 MG TAB PO SCH (09:21)
[2019-02-09] MEDS: FERROUS SULFATE (EC) 325 MG TAB PO SCH (09:21)
[2019-02-09] MEDS: AMLODIPINE 10 MG TAB PO SCH (09:22)
[2019-02-09] MEDS: ENOXAPARIN 40 MG/0.4 ML SYG SC SCH (09:25)
[2019-02-09 13:58] VITALS: BP 106/57; PULSE 79; RESP 16
[2019-02-09] MEDS ORDERED: VANCOMYCIN 1 GM 250 ML IVPB SCH (16:45)
[2019-02-09 19:52] VITALS: BP 125/59; PULSE 75; RESP 18
[2019-02-10] MEDS: VANCOMYCIN 1 GM 250 ML IVPB SCH ×3 (00:08→15:52)
[2019-02-10 01:49] VITALS: BP 112/55; PULSE 61; RESP 16
[2019-02-10] MEDS: ACCU-CHEK XX SCH ×4 (07:00→21:00)
[2019-02-10 07:22] VITALS: BP 125/61; PULSE 70; RESP 16
[2019-02-10] MEDS: INSULIN ASPART [NOVOLOG] 3 ML PEN SC SCH ×4 (08:00→21:00)
[2019-02-10] MEDS: metFORMIN 500 MG TAB PO SCH ×2 (08:12→17:17)
[2019-02-10] MEDS: ENOXAPARIN 60 MG/0.6 ML SYG SC SCH (08:23)
[2019-02-10] MEDS: HYDROmorphONE 0.5 MG/0.5 ML SYG IV PRN ×2 (08:28→13:36)
[2019-02-10] MEDS: FERROUS SULFATE (EC) 325 MG TAB PO SCH ×2 (09:39→22:12)
[2019-02-10] MEDS: ASPIRIN 81 MG TAB PO SCH (09:39)
[2019-02-10] MEDS: AMLODIPINE 10 MG TAB PO SCH (09:40)
[2019-02-10] MEDS: BENAZEPRIL 40 MG TAB PO SCH ×2 (09:40→22:13)
[2019-02-10 13:41] VITALS: BP 131/70; PULSE 80; RESP 16
[2019-02-10 20:13] VITALS: BP 111/54; PULSE 63; RESP 17
[2019-02-10 21:23] VITALS: BP 135/71; RESP 18
[2019-02-10] MEDS: ASCORBIC ACID 500 MG TAB PO SCH (22:12)
[2019-02-11] MEDS: VANCOMYCIN 1 GM 250 ML IVPB SCH ×4 (00:16→23:48)
[2019-02-11 03:39] VITALS: BP 133/63; PULSE 71; RESP 17
[2019-02-11] MEDS: HYDROmorphONE 0.5 MG/0.5 ML SYG IV PRN ×4 (06:15→23:55)
[2019-02-11] MEDS: ACCU-CHEK XX SCH ×4 (07:00→20:36)
[2019-02-11 07:37] VITALS: BP 118/62; PULSE 69; RESP 16
[2019-02-11] MEDS: INSULIN ASPART [NOVOLOG] 3 ML PEN SC SCH ×4 (08:00→20:36)
[2019-02-11] MEDS: ASCORBIC ACID 500 MG TAB PO SCH ×2 (08:08→20:35)
[2019-02-11] MEDS: ASPIRIN 81 MG TAB PO SCH (08:08)
[2019-02-11] MEDS: FERROUS SULFATE (EC) 325 MG TAB PO SCH ×2 (08:08→20:35)
[2019-02-11] MEDS: BENAZEPRIL 40 MG TAB PO SCH ×2 (08:09→20:35)
[2019-02-11] MEDS: AMLODIPINE 2.5 MG TAB PO SCH (08:09)
[2019-02-11] MEDS: ENOXAPARIN 60 MG/0.6 ML SYG SC SCH (08:12)
[2019-02-11] MEDS: ONDANSETRON 4 MG INJ IV PRN (13:13)
[2019-02-11 14:30] VITALS: BP 105/59; PULSE 79; RESP 16
[2019-02-11] MEDS ORDERED: SOD FERRIC GLUC COMPLX 125 MG in SOD CHLORIDE 0.9% 100 ML IVPB ONE (14:30)
[2019-02-11] MEDS: metFORMIN 500 MG TAB PO SCH (17:32)
[2019-02-11 19:33] VITALS: BP 119/58; PULSE 88; RESP 20
[2019-02-12 01:08] VITALS: BP 112/55; PULSE 75; RESP 18
[2019-02-12] MEDS: ACCU-CHEK XX SCH ×2 (07:00→09:04)
[2019-02-12] MEDS: INSULIN ASPART [NOVOLOG] 3 ML PEN SC SCH ×3 (08:00→12:00)
[2019-02-12 08:17] VITALS: BP 116/54; PULSE 70; RESP 16
[2019-02-12] MEDS: VANCOMYCIN 1 GM 250 ML IVPB SCH (08:40)
[2019-02-12] MEDS: ASCORBIC ACID 500 MG TAB PO SCH (08:41)
[2019-02-12] MEDS: FERROUS SULFATE (EC) 325 MG TAB PO SCH (08:41)
[2019-02-12] MEDS: BENAZEPRIL 40 MG TAB PO SCH (08:41)
[2019-02-12] MEDS: ASPIRIN 81 MG TAB PO SCH (08:42)
[2019-02-12] MEDS: AMLODIPINE 2.5 MG TAB PO SCH (08:42)
[2019-02-12] MEDS: ENOXAPARIN 60 MG/0.6 ML SYG SC SCH (08:47)
[2019-02-12] MEDS: HYDROmorphONE 0.5 MG/0.5 ML SYG IV PRN (09:14)
[2019-02-12 15:12] VITALS: BP 125/60; PULSE 78; RESP 60
== END 2019-02-12 16:32 | disposition home or self-care (01) | DRG 872 ==
LOC: FTE 17:31 → 2NE 21:00 → CANRESERV 23:44
PROVIDERS: ADMIT Internal Medicine; ATTEND Internal Medicine
DX: A41.9 Sepsis, unspecified organism (principal); L03.116 Cellulitis of left lower limb; Z68.45 Body mass index [BMI] 70 or greater, adult; L03.115 Cellulitis of right lower limb; E87.2 Acidosis; E11.8 Type 2 diabetes mellitus with unspecified complications; E88.81 Metabolic syndrome and other insulin resistance; E66.01 Morbid (severe) obesity due to excess calories; F41.9 Anxiety disorder, unspecified; F32.9 Major depressive disorder, single episode, unspecified; M79.7 Fibromyalgia; F17.200 Nicotine dependence, unspecified, uncomplicated; I10 Essential (primary) hypertension; L40.9 Psoriasis, unspecified; Z86.711 Personal history of pulmonary embolism; D50.0 Iron deficiency anemia secondary to blood loss (chronic)
CPT/HCPCS: 36415; 71045; 73590; 80048; 80053; 80061; 80202; 81001; 81025; 82565; 82728; 82962; 83036; 83540; 83605; 83735; 84100; 84145; 84484; 84520; 85025; 85610; 85730; 87086; 93005; 93971; 96374; 96375; J0696; J1170; J1650; J1815; J1885; J2405; J2916; J3370; J7030; J7040